=== PATIENT | female | born 1940 | race Caucasian/White ===

== ENCOUNTER 2016-08-26 14:17 | Inpatient (IN) | payer MEDICARE, OTHER ==
[2016-08-26] VITALS (8 sets, daily range): BP systolic 128–156; BP diastolic 63–85; PULSE 59–100; RESP 14–22; TEMP 97.6–98.4; O2SAT 90–93
[~2016-08-26] VITALS: Ht 167.6 cm; Wt 64.3 kg
--- NOTE | 2016-08-26 15:44 | RADRPT ---
EXAM DATE/TIME: 08/26/2016 15:09 [facility] COMPARISON: No previous studies available for comparison. INDICATIONS : Short of breath MEDICAL HISTORY : Carcinoma, breast. SURGICAL HISTORY : [id number] ENCOUNTER: Initial ACUITY: 1 day PAIN SCORE: 4/10 LOCATION: Bilateral chest FINDINGS: A single view of the chest demonstrates the lungs to be symmetrically aerated with mild interstitial prominence suggesting some degree of vascular congestion or volume overload. No findings of overt lenard lure. There are no effusions or confluent infiltrates. Heart size is normal accounting for the low enrrique ng volumes. Degenerative spurring of the dorsal spine. Osseous structures are intact. Right IJ Infuse -a-Port catheter with the tip projecting over the central venous system. CONCLUSION: 1. Mild interstitial prominence suggesting some degree of vascular congestion or volume overload. 2. No confluent infiltrate or effusions. Alejandro Dalton MD on August 26, 2016 at 15:40 Board Certified Radiologist. This report was verified electronically.
[2016-08-26 15:46] LABS: BASOPHIL % 0.2 % (0.0-2.0); EOSINOPHIL # 0.1 TH/MM3 (0-0.4); EOSINOPHIL % 0.8 % (0.0-4.0); HEMATOCRIT 32.8 % (35.0-46.0); LYMPH % 10.6 % (9.0-44.0); LYMPHOCYTE # 0.6 TH/MM3 (1.0-4.8); MEAN CELL VOLUME 84.9 FL (80.0-100.0); MEAN CORPUSCULAR HEMOGLOBIN 27.7 PG (27.0-34.0); MEAN CORPUSCULAR HGB CONC 32.7 % (32.0-36.0); MONO % 5.5 % (0.0-8.0); NEUT % 82.9 % (16.0-70.0); PLATELET COUNT 364 TH/MM3 (150-450); RED BLOOD COUNT 3.86 MIL/MM3 (4.00-5.30); RED CELL DISTRIBUTION WIDTH 15.2 % (11.6-17.2); WHITE BLOOD COUNT 6.1 TH/MM3 (4.0-11.0)
[2016-08-26 15:47] LABS: PROTHROMBIN TIME - PATIENT 11.3 SEC (9.8-11.6)
[2016-08-26 15:52] LABS: HEMO FLAGS AUTO DIFF
[2016-08-26 16:12] LABS: ANION GAP 8 MEQ/L (5-15); BICARBONATE 25.6 MEQ/L (21.0-32.0); BLOOD UREA NITROGEN 8 MG/DL (7-18); CHLORIDE 106 MEQ/L (98-107); GLOMERULAR FILTRATION RATE 74 ML/MIN (>89); POTASSIUM 3.6 MEQ/L (3.5-5.1); SODIUM (NA) 140 MEQ/L (136-145)
[2016-08-26 16:15] LABS: CREATINE KINASE 33 U/L (26-192)
[2016-08-26 16:35] LABS: BANDS 8 % (0-6); BASOPHILS 2 % (0-2); EOSINOPHILS 2 % (0-4); METAMYELOCYTES 1 % (0-1); MYELOCYTES 1 % (0-0); NEUTROPHIL # MANUAL DIFF 5.1 TH/MM3 (1.8-7.7); POLYS (SEG NEUTROPHILS) 74 % (16-70); WBC DIFF SAMPLE 100
[2016-08-26 16:36] LABS: PLATELET ESTIMATE SMEAR NORMAL (NORMAL); PLATELET MORPHOLOGY ENLARGED (NORMAL); SCAN/DIFF FINAL DIFF MANUAL
--- NOTE | 2016-08-26 18:12 | PD ---
HPI Chief Complaint: Respiratory Distress Time Seen by Provider: 14:45 Travel History International Travel<30 days: No Contact w/Intl Traveler<30days: No Traveled to known affect area: No History of Present Illness HPI 76-year-old female came to the emergency room with history of hypoxia at her oncologist's office. Patient was diagnosed with breast cancer 8 weeks ago. Had a lumpectomy and has been going to chemotherapy. She was at her oncologist office and finish with the chemotherapy when the nurse noticed that her oxygen saturation was in the 70s. EMS was called and patient was brought here. As per EMS when patient ambulates the oxygen saturation on room air dropped down to 75%. Patient does not appear to be severely discomfort. Currently she is on 4 L of oxygen and saturating 92%. Upon asking patient said that for past 4- 5 days she has noticed some shortness of breath on exertion. Her oncologist was concerned about a blood clot in her lungs. Patient has never had any blood clots in the past. Heart rate and blood pressure stable otherwise. No history of fever or chills. No history of cough. No history of chest pain. [facility] Past Medical History Narrative Medical List of her past medical, surgical, social and family history was reviewed from the nursing note. Cancer: Yes (left breast) Chemotherapy: Yes Social History Alcohol Use: No Tobacco Use: No Substance Use: No Allergies-Medications (Allergen,Severity, Reaction): Coded Allergies: No Known Allergies (Unverified , 08/26/16) Comments No known drug allergies. Reported Meds & Prescriptions Reported Meds & Active Scripts Active Reported Crestor (Rosuvastatin Calcium) 40 Mg Tab 40 Mg PO DAILY Vesicare (Solifenacin) 5 Mg Tab 5 Mg PO DAILY Cymbalta DR (Duloxetine HCl) 60 Mg Capdr 60 Mg PO DAILY Narrative Medication Awaiting for the nurse to do a med reconciliation. Review of Systems Except as stated in HPI: all other systems reviewed are Neg Physical Exam Narrative GENERAL: Awake, alert, no obvious distress SKIN: Focused skin assessment warm/dry. Pale HEAD: Atraumatic. Normocephalic. EYES: Pupils equal and round. No scleral icterus. No injection or drainage. ENT: No nasal bleeding or discharge. Mucous membranes pink and moist. NECK: Trachea midline. No JVD. CARDIOVASCULAR: Regular rate and rhythm. No murmur appreciated. RESPIRATORY: No accessory muscle use. Coarse crackles bilaterally. GASTROINTESTINAL: Abdomen soft, non-tender, nondistended. Hepatic and splenic margins not palpable. MUSCULOSKELETAL: No obvious deformities. No clubbing. No cyanosis. No edema. NEUROLOGICAL: Awake and alert. No obvious cranial nerve deficits. Motor grossly within normal limits. Normal speech. PSYCHIATRIC: Appropriate mood and affect; insight and judgment normal. Data Data Last Documented VS Vital Signs Date Time Temp Pulse Resp B/P Pulse Ox O2 Delivery O2 Flow Rate FiO2 08/26/16 19:17 92 20 156/85 92 Nasal Cannula 4 08/26/16 14:37 98.4 Orders Complete Blood Count With Diff (08/26/16 14:45) Basic Metabolic Panel (Bmp) (08/26/16 14:45) B-Type Natriuretic Peptide (08/26/16 14:45) Prothrombin Time / Inr (Pt) (08/26/16 14:45) Ckmb (Isoenzyme) Profile (08/26/16 14:45) Troponin I (08/26/16 14:45) Iv Access Insert/Monitor (08/26/16 14:45) Electrocardiogram (08/26/16 14:45) Ecg Monitoring (08/26/16 14:45) Oximetry (08/26/16 14:45) Oxygen Administration (08/26/16 14:45) Chest, Single Ap (08/26/16 14:45) Ventilation & Perfusion Scan (08/26/16 ) Iohexol 350 Inj (Omnipaque 350 Inj) (08/26/16 19:12) Levofloxacin 500 Mg Premix Inj (Levaquin (08/26/16 19:15) Admit Order (Ed Use Only) (08/26/16 19:27) Labs Laboratory Tests Test 08/26/16 15:03 White Blood Count 6.1 TH/MM3 Red Blood Count 3.86 MIL/MM3 Hemoglobin 10.7 GM/DL Hematocrit 32.8 % Mean Corpuscular Volume 84.9 FL Mean Corpuscular Hemoglobin 27.7 PG Mean Corpuscular Hemoglobin 32.7 % Concent Red Cell Distribution Width 15.2 % Platelet Count 364 TH/MM3 Mean Platelet Volume 9.2 FL Neutrophils (%) (Auto) 82.9 % Lymphocytes (%) (Auto) 10.6 % Monocytes (%) (Auto) 5.5 % Eosinophils (%) (Auto) 0.8 % Basophils (%) (Auto) 0.2 % Neutrophils # (Auto) 5.0 TH/MM3 Lymphocytes # (Auto) 0.6 TH/MM3 Monocytes # (Auto) 0.3 TH/MM3 Eosinophils # (Auto) 0.1 TH/MM3 Basophils # (Auto) 0.0 TH/MM3 CBC Comment AUTO DIFF Differential Total Cells 100 Counted Neutrophils % (Manual) 74 % Band Neutrophils % 8 % Lymphocytes % 8 % Monocytes % 4 % Eosinophils % 2 % Basophils % 2 % Neutrophils # (Manual) 5.1 TH/MM3 Metamyelocytes 1 % Myelocytes 1 % Differential Comment FINAL DIFF MANUAL Platelet Estimate NORMAL Platelet Morphology Comment ENLARGED Prothrombin Time 11.3 SEC Prothromb Time International 1.0 RATIO Ratio Sodium Level 140 MEQ/L Potassium Level 3.6 MEQ/L Chloride Level 106 MEQ/L Carbon Dioxide Level 25.6 MEQ/L Anion Gap 8 MEQ/L Blood Urea Nitrogen 8 MG/DL Creatinine 0.76 MG/DL Estimat Glomerular Filtration 74 ML/MIN Rate Random Glucose 157 MG/DL Calcium Level 9.2 MG/DL Total Creatine Kinase 33 U/L Troponin I LESS THAN 0.02 NG/ML B-Type Natriuretic Peptide 16 PG/ML MDM Medical Decision Making Medical Screen Exam Complete: Yes Emergency Medical Condition: Yes Medical Record Reviewed: Yes Interpretation(s) Twelve-lead EKG was reviewed by me. Normal sinus rhythm, normal axis, nonspecific ST-T wave changes. Heart rate of 86 bpm. Differential Diagnosis PE, congestive heart failure, pleural effusion, pneumonia Narrative Course 6:12 PM the test results of back and within acceptable limits. Patient does have a high risk for PE. CT pulmonary angiogram was ordered. Patient went for the CT but the IV infiltrated into her arm. Patient is waiting for a repeat CT angiogram at this point. 7:09 PM the IV contrast infiltrated on the left AC. The left AC cannot be accessed because of her breast cancer and lumpectomy. At this point I have ordered a VQ scan. In any case patient continues to be hypoxic and requires a 4 L of oxygen. I have decided to admit her at this point. Incidentally her differential diagnosis showed some bandemia. I'll go ahead and give her antibiotics. Critical Care Narrative Aggregate critical care time was 45 minutes. Time to perform other separately billable procedures was not included in the critical care time. My time did not include minutes spent treating any other patients simultaneously or on activities that did not directly contribute to the patient's treatment. The services I provided to this patient were to treat and/or prevent clinically significant deterioration that could result in: Respiratory distress, hypoxia requiring oxygen I provided critical care services requiring my management, as noted below: Chart data review, documentation time, medication orders and management, vital sign assessments/reviewing monitor data, ordering and reviewing lab tests, ordering and interpreting/reviewing x-rays and diagnostic studies, care of the patient and discussion of the patient with the admitting physicians. Procedures EKG Prior to Arrival: No Diagnosis Primary Impression: Hypoxia Additional Impressions: Shortness of breath Bandemia Admitting Information Admitting Physician Requests: Obdulia Rangel MD Aug 26, 2016 18:12
[2016-08-26] MEDS ORDERED: IOHEXOL 350 MG/ML 10 ML VIAL (for RAD DIAG) IV ONE (19:12)
[2016-08-26] MEDS ORDERED: LEVOFLOXACIN 500 MG PREMIX INJ 100 ML IV ONE (19:15)
--- NOTE | 2016-08-26 19:54 | HHI.HP ---
HPI Service [facility] Primary Care Physician Non-Staff Admission Diagnosis hypoxia, shortness of breath, bandemia Diagnoses: (1) Breast CA Diagnosis: Principal (2) Hypoxia Diagnosis: Principal (3) Bandemia Diagnosis: Principal (4) Dehydration Diagnosis: Principal (5) HTN (hypertension) Diagnosis: Principal Travel History International Travel<30 Days: No Contact w/Intl Traveler <30 Da: No Traveled to Known Affected Are: No History of Present Illness This is a 76-year-old female with a PMH of Breast CA on Chemotherapy was sent to the ER by Oncologist Dr. Kirk, secondary to episode of hypoxia following Chemo and concern for PE. Pt w/ c/o acute onset of SOB, noted to have O2 sat 75 % on RA upon EMS arrival, s/p 4L NC w/ O2 sat improved to 92%. No complaints of cough, chest pain or sick contacts. Denies fever, chills. On arrival, BP 128/63, HR 100, O2 sat 92% on 4L NC, Afebrile. WBC normal however elevated neutrophil count. Bands of 8%. GFR 74. INR 1.0. CXR with mild interstitial prominence with some degree of vascular congestion or volume overload, no infiltrate or effusion. V/Q with low probability for PE. S/p Levaquin IV in ER. for possible underlying PNA. Review of Systems Except as stated in HPI: all other systems reviewed are Neg ROS: 14 point review of systems otherwise negative. Past Family Social History Past Medical History PMH: Breast CA on Chemotherapy Past Surgical History PAST SURGICAL HISTORY: Left Breast Lumpectomy Allergies: Coded Allergies: No Known Allergies (Unverified , 08/26/16) Family History PAST FAMILY HISTORY: Reviewed. No h/o DM or CAD Social History PAST SOCIAL HISTORY: Negative for alcohol, tobacco or drugs. Physical Exam Vital Signs Vital Signs Date Time Temp Pulse Resp B/P Pulse Ox O2 Delivery O2 Flow Rate FiO2 08/26/16 19:17 92 20 156/85 92 Nasal Cannula 4 08/26/16 15:42 83 20 133/64 93 Nasal Cannula 4 08/26/16 15:17 93 Nasal Cannula 4 08/26/16 15:17 93 Nasal Cannula 4 08/26/16 14:45 94 Nasal Cannula 4 08/26/16 14:37 98.4 100 22 128/63 93 Physical Exam PE: GENERAL: Very pleasant elderly white female in no acute distress. HEENT: PERRLA, EOMI. No scleral icterus or conjunctival pallor. No lid lag or facial droop. CARDIOVASCULAR: Regular rate and rhythm. No obvious murmurs to auscultation. No chest tenderness to palpation. RESPIRATORY: No obvious rhonchi or wheezing. Clear to auscultation. Breath sounds equal bilaterally. GASTROINTESTINAL: Abdomen soft, non-tender, nondistended. BS normal. MUSCULOSKELETAL: Extremities without clubbing, cyanosis, or edema. No obvious deformities. NEUROLOGICAL: Awake, alert and oriented x4. No focal neurologic deficits. Moving both upper and lower extremities spontaneously. Laboratory Laboratory Tests Test 08/26/16 15:03 White Blood Count 6.1 Red Blood Count 3.86 Hemoglobin 10.7 Hematocrit 32.8 Mean Corpuscular Volume 84.9 Mean Corpuscular Hemoglobin 27.7 Mean Corpuscular Hemoglobin 32.7 Concent Red Cell Distribution Width 15.2 Platelet Count 364 Mean Platelet Volume 9.2 Neutrophils (%) (Auto) 82.9 Lymphocytes (%) (Auto) 10.6 Monocytes (%) (Auto) 5.5 Eosinophils (%) (Auto) 0.8 Basophils (%) (Auto) 0.2 Neutrophils # (Auto) 5.0 Lymphocytes # (Auto) 0.6 Monocytes # (Auto) 0.3 Eosinophils # (Auto) 0.1 Basophils # (Auto) 0.0 CBC Comment AUTO DIFF Differential Total Cells 100 Counted Neutrophils % (Manual) 74 Band Neutrophils % 8 Lymphocytes % 8 Monocytes % 4 Eosinophils % 2 Basophils % 2 Neutrophils # (Manual) 5.1 Metamyelocytes 1 Myelocytes 1 Differential Comment FINAL DIFF MANUAL Platelet Estimate NORMAL Platelet Morphology Comment ENLARGED Prothrombin Time 11.3 Prothromb Time International 1.0 Ratio Sodium Level 140 Potassium Level 3.6 Chloride Level 106 Carbon Dioxide Level 25.6 Anion Gap 8 Blood Urea Nitrogen 8 Creatinine 0.76 Estimat Glomerular Filtration 74 Rate Random Glucose 157 Calcium Level 9.2 Total Creatine Kinase 33 Troponin I LESS THAN 0.02 B-Type Natriuretic Peptide 16 Result Diagram: 08/26/16 1503 08/26/16 1503 Assessment and Plan Problem List: (1) Hypoxia ICD Code: R09.02 Status: Acute (2) Bandemia ICD Code: D72.825 Status: Acute (3) Dehydration ICD Code: E86.0 Status: Acute (4) Breast CA ICD Code: C50.919 Status: Acute (5) HTN (hypertension) ICD Code: I10 Status: Acute Assessment and Plan A/P: 1. Hypoxia: acute onset of SOB w/ O2 sat 75% on RA following Chemo, referred to ER by Dr. Kirk for concern of possible PE. O2 sat currently 93% on 4L NC. CXR w/ no possible volume overload but no infiltrate or effusion, V/Q Scan low probability for PE, images reviewed by me. S/p Levaquin for possible underlying PNA in light of immunocompromised state, will continue. DuoNeb prn, Symbicort bid. 2. Bandemia: +Bandemia w/ elevated neutrophil. CXR w/ no obvious infiltrate, however possible underlying PNA, will continue w/ IV Abx in light of immunocompromised state and bandemia. Repeat labs in am. 3. Dehydration: GFR 74, BUN/Creatinine normal. IVF for hydration, repeat labs in am. 4. Breast CA: Follows w/ Dr. Kirk, currently on Chemo. Will continue w/ treatment as scheduled. 5. HTN: BP 140-150's. Will monitor BP. 6. DVT Prophylaxis: Heparin sq 7. Social work for d/c planning as needed. 8. Case discussed w/ ER physician at length Physician Certification 2 Midnight Certification Type: Admission for Inpatient Services Order for Inpatient Services The services are ordered in accordance with Medicare regulations or non- Medicare payer requirements, as applicable. In the case of services not specified as inpatient-only, they are appropriately provided as inpatient services in accordance with the 2-midnight benchmark. Estimated LOS (days): 2 days is the estimated time the patient will need to remain in the hospital, assuming treatment plan goals are met and no additional complications. Post-Hospital Plan: Not yet determined Delia Price MD Aug 26, 2016 19:54
[2016-08-26] MEDS ORDERED: ACETAMINOPHEN 325 MG TAB PO PRN (20:00)
[2016-08-26] MEDS ORDERED: MAGNESIUM HYDROXIDE SUSP 30 ML CUP PO PRN (20:00)
[2016-08-26] MEDS ORDERED: LACTULOSE SYRUP 20 GM/30 ML CUP PO PRN (20:00)
[2016-08-26] MEDS ORDERED: ACETAMINOPHEN/HYDROcodone 325 MG/5 MG TAB PO PRN (20:00)
[2016-08-26] MEDS ORDERED: BISACODYL 10 MG SUPP RECTAL PRN (20:00)
[2016-08-26] MEDS ORDERED: SENNOSIDES 8.6 MG TAB PO PRN (20:00)
[2016-08-26] MEDS: DOCUSATE SODIUM 50 MG/SENNA 8.6 MG TAB PO SCH (21:00)
--- NOTE | 2016-08-26 21:23 | RADRPT ---
EXAM DATE/TIME: 08/26/2016 20:26 [facility] COMPARISON: No previous studies available for comparison. INDICATIONS : History of hypoxia. Acute shortness of breath. DOSE: 8.6 mCi Tc99m MAA IV 1.4 mCi Tc99m DTPA aerosol MEDICAL HISTORY : Carcinoma, breast. SURGICAL HISTORY : Lumpectomy. ENCOUNTER: Initial ACUITY: 1 day PAIN SCALE: 0/10 LOCATION: chest TECHNIQUE: Following five minutes of tidal breathing of DTPA aerosol, planar images of the lungs were performed in eight projections. The patient was then injected with MAA, and eight-view perfusion scan was perf ormed. FINDINGS: There is a mildly heterogeneous pattern of aerosol delivery to the periphery of both lungs. No focal ventilatory defects are seen. The perfusion lung scan demonstrates a homogenous pattern of uptake in both lungs with minimal blunti ng of the costophrenic angles. No segmental or subsegmental defects are seen. CONCLUSION: 1. Low probability for pulmonary embolus. Checo Conner MD on August 26, 2016 at 21:20 Board Certified Radiologist. This report was verified electronically.
[2016-08-26] MEDS ORDERED: ROSU40 PO (21:32)
[2016-08-26] MEDS ORDERED: VESI5TAB PO (21:32)
[2016-08-26] MEDS ORDERED: CYMB60CA PO (21:32)
[2016-08-26] MEDS: SODIUM CHLOR 0.9% 1000 ML INJ 1,000 ML IV SCH (21:53)
[2016-08-26] MEDS: SODIUM CHLORIDE 0.9% FLUSH 10 ML FLUSH IV FLUSH SCH (21:53)
[2016-08-26] MEDS: guaiFENesin E.R. 600 MG TAB PO SCH (22:18)
[2016-08-26] MEDS: HEPARIN SODIUM - SQ 10,000 UNITS/ML VIAL SQ SCH (22:21)
[2016-08-27] VITALS (8 sets, daily range): BP systolic 129–150; BP diastolic 58–72; PULSE 91–105; RESP 18–20; TEMP 97.6–98.1; O2SAT 89–95
[2016-08-27] MEDS: BUDESONIDE-FORMOTEROL 160/4.5 MCG INHALER INH SCH ×3 (00:13→21:54)
[2016-08-27] MEDS: HEPARIN SODIUM - SQ 10,000 UNITS/ML VIAL SQ SCH ×3 (05:02→21:43)
[2016-08-27] MEDS: RESP: ALBUTEROL 2.5 MG/IPRATROPIUM 0.5 MG NEB (PRN) NEB (05:03)
[2016-08-27] MEDS: SODIUM CHLOR 0.9% 1000 ML INJ 1,000 ML IV SCH (05:03)
[2016-08-27] MEDS: SODIUM CHLORIDE 0.9% FLUSH 10 ML FLUSH IV FLUSH SCH ×2 (09:00→21:45)
[2016-08-27] MEDS: DOCUSATE SODIUM 50 MG/SENNA 8.6 MG TAB PO SCH ×2 (09:00→21:00)
--- NOTE | 2016-08-27 09:22 | ECHRPT ---
Indication: Shortness of breath CONCLUSIONS Normal left ventricular size. Wall thickness is normal. The left ventricular systolic function is low normal with an estimated ejection fraction in the rang e of 50- 55%. There was limited left ventricular wall motion assessment due to poor endocardial visualization. Doppler parameters are consistent with impaired left ventricular relaxtion (grade 1 diastolic dysfun ction). The right ventricle was not well visualized. The right atrium is not well visualized. The interatrial septum not well visualized. Mild to moderate mitral annular calcification. Mild mitral regurgitation. The aortic valve is not well visualized. The tricuspid valve is not well visualized. There is trace tricuspid valve regurgitation. The pulmonary valve is not well visualized. BP: 156 / 85 HR: 86 Rhythm: Sinus MEASUREMENTS (Male / Female) Normal Values Technical Quality:Fair, Technically difficult stud y 2D ECHO LV Diastolic Diameter PLAX 4.3 cm 4.2 - 5.9 / 3.9 - 5.3 cm LV Systolic Diameter PLAX 2.6 cm IVS Diastolic Thickness 1.0 cm 0.6 - 1.0 / 0.6 - 0.9 cm LVPW Diastolic Thickness 1.0 cm 0.6 - 1.0 / 0.6 - 0.9 cm LV Relative Wall Thickness 0.4 LVOT Diameter 1.8 cm Aortic Root Diameter 2.8 cm LA Systolic Diameter LX 2.8 cm 3.0 - 4.0 / 2.7 - 3.8 cm M-MODE AV Cusp Separation MM 1.9 cm DOPPLER AV Peak Velocity 93.2 cm/s AV Peak Gradient 3.5 mmHg AV Mean Gradient 2.0 mmHg AV Velocity Time Integral 21.0 cm Mitral E Point Velocity 102.8 cm/s Mitral A Point Velocity 117.3 cm/s Mitral E to A Ratio 0.9 LV E' Lateral Velocity 7.0 cm/s Mitral E to LV E' Lateral Ratio 14.7 TR Peak Velocity 290.0 cm/s TR Peak Gradient 33.6 mmHg PV Peak Velocity 72.2 cm/s PV Peak Gradient 2.1 mmHg FINDINGS LEFT VENTRICLE Normal left ventricular size. Wall thickness is normal. The left ventricular systolic function is low normal with an estimated ejection fraction in the rang e of 50- 55%. There was limited left ventricular wall motion assessment due to poor endocardial visualization. Doppler parameters are consistent with impaired left ventricular relaxtion (grade 1 diastolic dysfun ction). RIGHT VENTRICLE The right ventricle was not well visualized. LEFT ATRIUM The left atrial size is normal. RIGHT ATRIUM The right atrium is not well visualized. ATRIAL SEPTUM The interatrial septum not well visualized. AORTA The aortic root and proximal ascending aorta are normal in size on limited imaging. MITRAL VALVE Mild to moderate mitral annular calcification. Mild mitral regurgitation. AORTIC VALVE The aortic valve is not well visualized. No aortic valve stenosis or regurgitation. TRICUSPID VALVE The tricuspid valve is not well visualized. There is trace tricuspid valve regurgitation. PULMONARY VALVE The pulmonary valve is not well visualized. VESSELS The inferior vena cava is normal in size. PERICARDIUM No pericardial effusion. Luis Fernando Louie MD (Electronically Signed) Final Date:27 August 2016 09:21
[2016-08-27] MEDS: ATORVASTATIN 80 MG TAB PO SCH (09:24)
[2016-08-27] MEDS: DULoxetine HCl DR 60 MG CAP PO SCH (09:24)
[2016-08-27] MEDS: guaiFENesin E.R. 600 MG TAB PO SCH ×2 (09:24→21:45)
[2016-08-27] MEDS: TOLTERODINE TARTRATE 2 MG CAP LA PO SCH (09:25)
[2016-08-27 09:26] LABS: AUTOMATED NEUTROPHIL # 4.8 TH/MM3 (1.8-7.7); BASOPHIL % 0.7 % (0.0-2.0); HEMO FLAGS DIFF FINAL; LYMPH % 11.9 % (9.0-44.0); LYMPHOCYTE # 0.7 TH/MM3 (1.0-4.8); MEAN CELL VOLUME 85.9 FL (80.0-100.0); MEAN CORPUSCULAR HEMOGLOBIN 27.7 PG (27.0-34.0); MEAN CORPUSCULAR HGB CONC 32.3 % (32.0-36.0); MONO % 8.4 % (0.0-8.0); PLATELET COUNT 355 TH/MM3 (150-450); RED BLOOD COUNT 3.85 MIL/MM3 (4.00-5.30); RED CELL DISTRIBUTION WIDTH 15.2 % (11.6-17.2); WHITE BLOOD COUNT 6.1 TH/MM3 (4.0-11.0)
[2016-08-27 09:45] LABS: ALT (GPT) 30 U/L (10-53); ANION GAP 14 MEQ/L (5-15); AST (GOT) 26 U/L (15-37); BICARBONATE 19.8 MEQ/L (21.0-32.0); BLOOD UREA NITROGEN 11 MG/DL (7-18); CHLORIDE 108 MEQ/L (98-107); GLOMERULAR FILTRATION RATE 93 ML/MIN (>89); POTASSIUM 3.5 MEQ/L (3.5-5.1); SODIUM (NA) 142 MEQ/L (136-145)
[2016-08-27 09:48] LABS: ALKALINE PHOSPHATASE 59 U/L (45-117); TOTAL BILIRUBIN ADULT 0.5 MG/DL (0.2-1.0)
--- NOTE | 2016-08-27 14:51 | HHI.PR ---
Subjective Remarks Better but still short of breath. Still hypoxemic requiring up to 5 L oxygen on NC. Denies any history of COPD or heart failure. 2D echo only remarkable for grade 1 diastolic dysfunction. Objective Vitals Vital Signs Date Time Temp Pulse Resp B/P Pulse Ox O2 Delivery O2 Flow Rate FiO2 08/27/16 12:00 97.6 105 18 129/65 93 08/27/16 08:00 98.1 91 20 150/72 89 08/27/16 08:00 Nasal Cannula 5.00 Humidified 08/27/16 05:05 92 Nasal Cannula 5.00 08/27/16 04:06 97.8 92 18 142/68 94 08/27/16 02:45 92 Nasal Cannula 5.00 08/26/16 23:57 97.6 92 18 143/74 90 08/26/16 23:06 59 14 135/74 Room Air 08/26/16 22:48 96 08/26/16 22:45 93 Nasal Cannula 5.00 08/26/16 19:17 92 20 156/85 92 Nasal Cannula 4 08/26/16 15:42 83 20 133/64 93 Nasal Cannula 4 08/26/16 15:17 93 Nasal Cannula 4 08/26/16 15:17 93 Nasal Cannula 4 I/O 08/26/16 08/26/16 08/26/16 08/27/16 08/27/16 08/27/16 07:00 15:00 23:00 07:00 15:00 23:00 Intake Total 1167 ml Output Total 0 ml Balance 1167 ml Intake Oral 240 ml IV Total 927 ml Output Urine Total 0 ml # Bowel Movements 0 Result Diagram: 08/27/16 0752 08/27/16 0752 Imaging Last Impressions Chest X-Ray 08/28/16 0358 Signed Impressions: Service Date/Time: Sunday, August 28, 2016 03:57 - CONCLUSION: The study is more Midinspiratory with apparent increase in the bilateral interstitial opacities which may represent pulmonary edema versus a more chronic process such as interstitial lung disease. Cayden Barba MD Lung Scan-VQ Nuclear Medicine 08/26/16 0000 Signed Impressions: Service Date/Time: Friday, August 26, 2016 20:26 - CONCLUSION: 1. Low probability for pulmonary embolus. Checo Conner MD Objective Remarks GENERAL: This is a well-nourished, well-developed patient, mild dyspnea. CARDIOVASCULAR: Normal rate and regular rhythm without murmurs, gallops, or rubs. RESPIRATORY: Good respiratory efforts. Breath sounds markedly diminished at the bases. GASTROINTESTINAL: Abdomen soft, non-tender, non-distended. Normal active bowel sounds MUSCULOSKELETAL: Extremities without cyanosis, or edema. NEURO: Alert & Oriented x4 to person, place, time, situation. Moves all ext x4 PSYCH: Appropriate mood and affect. A/P Problem List: (1) Hypoxia ICD Code: R09.02 Status: Acute (2) Bandemia ICD Code: D72.825 Status: Acute (3) Dehydration ICD Code: E86.0 Status: Acute (4) Breast CA ICD Code: C50.919 Status: Acute (5) HTN (hypertension) ICD Code: I10 Status: Acute Assessment and Plan 76 Y/O female with breast cancer undergoing chemotherapy treatment admitted with acute shortness of breath, hypoxemia. Hypoxia: acute onset of SOB w/ O2 sat 75% on RA following Chemo, referred to ER by Dr. Kirk for concern of possible PE. O2 sat currently 93% on 4L NC. CXR w/ possible volume overload but no infiltrate or effusion, V/Q Scan low probability for PE, images reviewed by me. S/p Levaquin for possible underlying PNA in light of immunocompromised state, will continue. DuoNeb prn, Symbicort bid. - Patient is still having dyspnea. Will obtain a chest CT to better evaluate the lung parenchyma. Consult pulmonology Breast CA: Follows w/ Dr. Kirk, currently on Chemo. Patient was sent from the Oncology office. Consult Dr. Kirk. Bandemia: +Bandemia w/ elevated neutrophil. CXR w/ no obvious infiltrate, however possible underlying PNA, will continue w/ IV Abx in light of immunocompromised state and bandemia. Follow labs. Elevated BP: No known history of hypertension. Continue to monitor. DVT Prophylaxis: Heparin sq Stefany Luong MD Aug 27, 2016 14:51
[2016-08-27] MEDS: LEVOFLOXACIN 750 MG PREMIX INJ 150 ML IV SCH (21:45)
--- NOTE | 2016-08-27 22:56 | HHI.PR ---
Addendum to Inpatient Note Addendum Reason: Additional Documentation Additional Information S: Evie called on overhead page. [place] by resident team at 8:08 PM; arrived at bedside within a few minutes. Evie was called for oxygen saturation in the 70s. Respiratory therapy at bedside, saying they have solved the problem. The oxygen tubing got tangled, so patient was not getting oxygen. Soon after they changed the oxygen tubing and connected the patient to NRB, oxygen saturation ayaka to 95%. Then, when patient was transitioned to 5 L nasal cannula , patient's oxygen saturation was 94%. Patient denies any acute change in her breathing. She denies shortness of breath at rest. She endorses dyspnea on exertion, but reports that her symptoms are at baseline. O: Pulse 95, blood pressure 137/58, temperature 97.6, pulse ox of 78%, respiratory rate of 18. Soon after they changed the oxygen tubing and connected the patient to NRB, oxygen saturation aayka to 95%. Then, when patient was transitioned to 5 L nasal cannula, patient's oxygen saturation was 94%. Gen: Patient awake, alert and conversational in no acute distress Cardiovascular: Extremities warm and well perfused Respiratory: No signs of respiratory distress. Patient breathing comfortably on NRB and then nasal cannula. Neuro: Patient awake, alert and oriented. No focal deficits. A/P: 76-year-old woman who presented with shortness of breath had oxygen desaturation likely because of tangled/kinked oxygen tubing, which resolved with replacement of oxygen tubing. Patient denied any acute change in her symptoms. No signs of respiratory distress on exam. Continue oxygen via nasal cannula. Titrate as needed. Cayden Vila MD R1 Aug 27, 2016 22:56
[2016-08-28] VITALS (23 sets, daily range): BP systolic 116–156; BP diastolic 56–83; PULSE 93–108; RESP 18–39; TEMP 97.5–98.8; O2SAT 90–100
[2016-08-28] MEDS: RESP: ALBUTEROL 2.5 MG/IPRATROPIUM 0.5 MG NEB (PRN) NEB ×3 (04:12→11:58)
[2016-08-28] MEDS: HEPARIN SODIUM - SQ 10,000 UNITS/ML VIAL SQ SCH ×3 (04:13→20:23)
--- NOTE | 2016-08-28 04:15 | RADRPT ---
EXAM DATE/TIME: 08/28/2016 03:57 [facility] COMPARISON: CT PULMONARY ANGIOGRAM, August 26, 2016, 16:50. CHEST SINGLE AP, August 26, 2016, 15:09. INDICATIONS : Pt short of breath. MEDICAL HISTORY : Carcinoma, breast. SURGICAL HISTORY : None. ENCOUNTER: Initial ACUITY: 1 day PAIN SCORE: 8/10 LOCATION: Bilateral chest FINDINGS: A single AP erect view of the chest was obtained and again demonstrates the right-sided implantable p ort catheter in place. Coarse interstitial opacities are noted in both lungs which appear mildly incr eased. This may be due to a more Midinspiratory view. There is no new focal consolidation or effusion . The heart size appears mildly prominent. The bony thorax is intact with degenerative change in the thoracic spine. CONCLUSION: The study is more Midinspiratory with apparent increase in the bilateral interstitial opacities which may represent pulmonary edema versus a more chronic process such as interstitial rica g disease. Cayden Barba MD on August 28, 2016 at 4:11 Board Certified Radiologist. This report was verified electronically.
--- NOTE | 2016-08-28 04:26 | HHI.PR ---
Blank section for building S:Received call from RN that patient was saturating in the 70s on 5L is currently requiring non rebreather mask Patient denies SOB O:Patient current vital signs: Temperature 97.9, blood pressure 134/62, heart rate 103, respiratory rate 26, saturating 94% on simple mask Patient appears tachypneic and using accessory muscles Heart rate is tachycardic A/P:Hypoxia Requiring increasing oxygen support Stat ABG, CXR and breathing treatment ordered Transfer patient to [facility] for BiPAP Discussed with RN, patient and Vivien Alves Aug 28, 2016 04:26
[2016-08-28 04:43] LABS: BLOOD GAS BASE EXCESS -1.1 mmol/L (-2-2); BLOOD GAS CARBOXYHEMOGLOBIN 1.4 % (0-4); BLOOD GAS HCO3 23 mmol/L (22-26); BLOOD GAS O2 HGB SATURATION 88 % (90-100); BLOOD GAS OXYGEN CONTENT 14.3 Vol % (12.0-20.0); BLOOD GAS PCO2 37 mmHg (38-42); BLOOD GAS PO2 59 mmHg (61-120); BLOOD GAS TOTAL HGB 11.6 G/DL (12.0-16.0); TEMP CORR TO 98.6
[2016-08-28 04:44] LABS: CRITICAL VALUE YES; DRAW SITE RT RADIAL; LITER FLOW 9 L/M; NUMBER OF ARTERIAL PUNCTURES 1; OXYGEN DEVICE MASK; ULNAR PULSE PRESENT
[2016-08-28 04:45] LABS: STAT YES
[2016-08-28] MEDS: guaiFENesin E.R. 600 MG TAB PO SCH ×2 (10:05→20:23)
[2016-08-28] MEDS: ATORVASTATIN 80 MG TAB PO SCH (10:05)
[2016-08-28] MEDS: DOCUSATE SODIUM 50 MG/SENNA 8.6 MG TAB PO SCH ×2 (10:05→20:23)
[2016-08-28] MEDS: DULoxetine HCl DR 60 MG CAP PO SCH (10:05)
[2016-08-28] MEDS: TOLTERODINE TARTRATE 2 MG CAP LA PO SCH (10:06)
[2016-08-28] MEDS: BUDESONIDE-FORMOTEROL 160/4.5 MCG INHALER INH SCH ×2 (10:06→20:22)
[2016-08-28] MEDS: SODIUM CHLORIDE 0.9% FLUSH 10 ML FLUSH IV FLUSH SCH ×2 (10:06→20:23)
--- NOTE | 2016-08-28 10:09 | EKG ---
Date Performed: 08/26/2016 Time Performed: 14:59:30 PTAGE: 76 years EKG: Sinus rhythm NORMAL ECG NO PREVIOUS TRACING DOCTOR: Mack Jensen Interpretating Date/Time 08/28/2016 09:52:59
[2016-08-28] MEDS ORDERED: FUROSEMIDE 40 MG/4 ML VIAL IV PUSH ONE (10:30)
[2016-08-28] MEDS ORDERED: ENALAPRILAT 1.25 MG/ML VIAL IV PRN (10:30)
--- NOTE | 2016-08-28 10:59 | RADRPT ---
EXAM DATE/TIME: 08/28/2016 10:21 [facility] COMPARISON: CHEST SINGLE AP, August 28, 2016, 3:57. INDICATIONS : Short of breath Dyspnea MEDICAL HISTORY : Carcinoma, breast. SURGICAL HISTORY : [id number] ENCOUNTER: Subsequent ACUITY: 1 day PAIN SCORE: 0/10 LOCATION: Bilateral chest FINDINGS: [id number] is present on the right. Coarse interstitial changes aer seen in both lungs increasing in the interval. Heart is normal in size. CONCLUSION: Increasing interstitial changes. There is no pneumothorax. Soy Harper MD FACR on August 28, 2016 at 10:53 Board Certified Radiologist. This report was verified electronically.
--- NOTE | 2016-08-28 11:00 | HHI.PR ---
Subjective Remarks The patient's respiratory status worsened overnight. She was on BiPAP until this morning. She is still dyspneic and tachypneic. Currently on 100% on nonrebreather. She states her shortness of breath has been intermittently getting worse. Denies chest pain or chest pressure. A chest x-ray obtained earlier this morning was mean and speech are but noted increased bilateral interstitial opacities which may represent pulmonary edema versus interstitial lung disease. Objective Vitals Vital Signs Date Time Temp Pulse Resp B/P Pulse Ox O2 Delivery O2 Flow Rate FiO2 08/28/16 08:55 100 Non-Rebreather 100 08/28/16 08:47 90 Nasal Cannula 6.00 08/28/16 07:41 100 60 08/28/16 07:00 99 Bi-Pap 08/28/16 07:00 94 08/28/16 07:00 98.3 93 35 128/70 98 08/28/16 06:00 101 08/28/16 05:12 98 60 08/28/16 05:00 98.0 105 26 156/83 98 08/28/16 05:00 108 08/28/16 05:00 98 Bi-Pap 08/28/16 04:20 94 Simple Mask 8.00 08/28/16 04:00 97.9 94 18 134/62 99 08/28/16 00:00 97.7 101 18 126/58 90 08/27/16 22:00 90 Nasal Cannula 5.00 Humidified 08/27/16 20:10 95 5.00 08/27/16 20:00 97.6 95 18 137/58 94 08/27/16 17:39 90 Nasal Cannula 5.00 08/27/16 16:00 97.8 100 20 129/71 90 08/27/16 12:00 97.6 105 18 129/65 93 I/O 08/27/16 08/27/16 08/27/16 08/28/16 08/28/16 08/28/16 07:00 15:00 23:00 07:00 15:00 23:00 Intake Total 1167 ml 1320 ml Output Total 0 ml Balance 1167 ml 1320 ml Intake Oral 240 ml 240 ml IV Total 927 ml 1080 ml Output Urine Total 0 ml # Voids 2 # Bowel Movements 0 0 Result Diagram: 08/27/16 0752 08/27/16 075 Objective Remarks GENERAL: This is a well-nourished, well-developed patient, in respiratory distress. Patient is tachypneic. CARDIOVASCULAR: Normal rate and regular rhythm without murmurs, gallops, or rubs. RESPIRATORY: Tachypneic, shallow breathing. Bilateral crackles at the bases GASTROINTESTINAL: Abdomen soft, non-tender, non-distended. Normal active bowel sounds MUSCULOSKELETAL: Extremities without cyanosis, or edema. NEURO: Alert & Oriented x4 to person, place, time, situation. Moves all ext x4 PSYCH: Appropriate mood and affect. A/P Problem List: (1) Hypoxia ICD Code: R09.02 Status: Acute (2) Bandemia ICD Code: D72.825 Status: Acute (3) Dehydration ICD Code: E86.0 Status: Acute (4) Breast CA ICD Code: C50.919 Status: Acute (5) HTN (hypertension) ICD Code: I10 Status: Acute Assessment and Plan 76 Y/O female with breast cancer undergoing chemotherapy treatment admitted with acute shortness of breath, hypoxemia. Patient respiratory status worsening. Probably worsening CHF in combination with interstitial lung disease. Acute respiratory failure: Patient initially presented to the emergency room hypoxemic on room air. She was sent from her oncologist office, Dr. Kirk. VQ scan low probability for PE. I attempted to get a chest CT yesterday but was later told it was done on 08/26. Report not in EMR, there is now a paper copy in the chart. Per radiologist's read, this was also negative for pulmonary embolus. Pulmonary fibrosis. Extensive groundglass opacity with low below sparing. Differential diagnosis includes sequelae of drug reaction or subacute hypersensitivity pneumonitis, atypical usual interstitial pneumonitis or other causes of alveolitis. - On exam today. The patient has bilateral crackles. Worsening respiratory status. A 2-D echocardiogram shows low normal LVEF 50-55% and grade 1 diastolic dysfunction. Her BNP on admission was normal. Suspect respiratory failure is due to combination of heart failure and possible interstitial lung disease. ? Cardiotoxicity from chemotherapy. Give 1 dose of IV Lasix 40 mg 1. Monitor response. BiPAP as needed. - Pulmonology and cardiology consulted - Given the patient respiratory status. Will transfer to ICU for closer monitoring and care. At risk for worsening respiratory failure. Breast CA: Follows w/ Dr. Kirk, currently on Chemo. Patient was sent from the Oncology office. Consult Dr. Kirk. Bandemia: +Bandemia w/ elevated neutrophil. CXR w/ no obvious infiltrate, however possible underlying PNA, will continue w/ IV Abx in light of immunocompromised state and bandemia. Follow labs. Elevated BP: No known history of hypertension. Continue to monitor. DVT Prophylaxis: Heparin sq Stefany Luong MD Aug 28, 2016 11:00
[2016-08-28] MEDS ORDERED: DEXTROSE 50% IN WATER 50 ML VIAL(D50) IV PRN (12:30)
[2016-08-28] MEDS ORDERED: methylPREDNISolone SOD SUCC 125 MG/2 ML VIAL IV PUSH SCH (12:30)
[2016-08-28] MEDS: INSULIN NovoLIN REGULAR SUPPLEMENTAL SCALE SQ SCH ×3 (12:30→23:35)
[2016-08-28] MEDS ORDERED: GLUCAGON 1 MG/ML VIAL OTHER PRN (12:30)
--- NOTE | 2016-08-28 12:32 | PD.CONS ---
HPI Consult Requested By Reason for Consult Possible congestive heart failure Primary Care Physician Non-Staff History of Present Illness The patient is a pleasant 76-year-old white woman I'm asked to see for cardiac evaluation. She has no prior cardiac history. She is undergoing chemotherapy for breast cancer. Over the last week she's had progressive dyspnea on exertion and now severe dyspnea at rest with hypoxemia. She has no chest pain, palpitations nor any other cardiopulmonary history. EKG showed sinus rhythm and is normal. Echocardiogram was suboptimal but suggested normal left ventricular function and valves. Review of Systems Consitutional: COMPLAINS OF: Weight loss Respiratory: COMPLAINS OF: Shortness of breath Genitourinary: DENIES: Urinary incontinence Neurologic: DENIES: Tingling or numbness Musculoskeletal: COMPLAINS OF: Joint pain Psychiatric: COMPLAINS OF: Anxiety Past Family Social History Allergies: Coded Allergies: No Known Allergies (Unverified , 08/26/16) Past Medical History Hyperlipidemia Breast cancer with surgery and chemotherapy Osteoarthritis Past Surgical History Left lumpectomy Back surgery with hoang appendectomy Right rotator cuff surgery Right carpal tunnel release right total knee replacement Bilateral cataracts Reported Medications Reported Meds & Active Scripts Active Reported Crestor (Rosuvastatin Calcium) 40 Mg Tab 40 Mg PO DAILY Vesicare (Solifenacin) 5 Mg Tab 5 Mg PO DAILY Cymbalta DR (Duloxetine HCl) 60 Mg Capdr 60 Mg PO DAILY Active Ordered Medications Current Medications Medications (Trade) Dose Ordered Sig/Aurelia Route Start Time Stop Time Status Last Admin (Symbicort 160-4.5 Inh) 2 puff Q12HR INH 08/26/16 21:00 08/28/16 10:06 (Mucinex Er) 600 mg BID PO 08/26/16 21:00 08/28/16 10:05 (NS Flush) 2 ml UNSCH PRN IV FLUSH 08/26/16 20:00 (NS Flush) 2 ml BID IV FLUSH 08/26/16 21:00 08/28/16 10:06 (Zofran Inj) 4 mg Q6H PRN IVP 08/26/16 20:00 (Heparin Inj) 5,000 units Q8H SQ 08/26/16 20:00 08/28/16 04:13 (Tylenol) 650 mg Q6H PRN PO 08/26/16 20:00 (Aurora 5-325 Mg) 1 tab Q4H PRN PO 08/26/16 20:00 (Morphine Inj) 2 mg Q3H PRN IV 08/26/16 20:00 (Letty-Colace) 1 tab BID PO 08/26/16 21:00 08/28/16 10:05 (Milk Of Magnesia Liq) 30 ml Q12H PRN PO 08/26/16 20:00 (Senokot) 17.2 mg Q12H PRN PO 08/26/16 20:00 (Dulcolax Supp) 10 mg DAILY PRN RECTAL 08/26/16 20:00 Lactulose 30 ml 30 ml DAILY PRN PO 08/26/16 20:00 (Levaquin 750 Mg Premix Inj) 150 ml @ 100 mls/hr Q24H IV 08/27/16 21:00 08/27/16 21:45 (Cymbalta Dr) 60 mg DAILY PO 08/27/16 09:00 08/28/16 10:05 (Lipitor) 80 mg DAILY PO 08/27/16 09:00 08/28/16 10:05 (Detrol La) 2 mg DAILY PO 08/27/16 09:00 08/28/16 10:06 (Vasotec Inj) 1.25 mg Q6H PRN IV 08/28/16 10:30 Family History Unremarkable for premature coronary disease Social History She is and does not smoke and has a rare glass of wine. Physical Exam Vital Signs Vital Signs Date Time Temp Pulse Resp B/P Pulse Ox O2 Delivery O2 Flow Rate FiO2 08/28/16 11:00 97.5 104 35 147/75 93 08/28/16 11:00 100 08/28/16 10:00 94 08/28/16 09:00 100 08/28/16 08:55 100 Non-Rebreather 100 08/28/16 08:47 90 Nasal Cannula 6.00 08/28/16 08:00 100 08/28/16 07:41 100 60 08/28/16 07:00 99 Bi-Pap 08/28/16 07:00 100 Bi-Pap 60 08/28/16 07:00 94 08/28/16 07:00 98.3 93 35 128/70 98 08/28/16 06:00 101 08/28/16 05:12 98 60 08/28/16 05:00 98.0 105 26 156/83 98 08/28/16 05:00 108 08/28/16 05:00 98 Bi-Pap 08/28/16 04:20 94 Simple Mask 8.00 08/28/16 04:00 97.9 94 18 134/62 99 08/28/16 00:00 97.7 101 18 126/58 90 08/27/16 22:00 90 Nasal Cannula 5.00 Humidified 08/27/16 20:10 95 5.00 08/27/16 20:00 97.6 95 18 137/58 94 08/27/16 17:39 90 Nasal Cannula 5.00 08/27/16 16:00 97.8 100 20 129/71 90 Physical Exam CONSTITUTIONAL: A well-developed, well-nourished patient who is short of breath and tachypneic. EYES: Conjunctiva normal. Sclera nonicteric. Eyelids normal. No xanthelasma. HEENT: Oral mucosa normal without pallor or cyanosis. NECK: JVD less than or equal to 5 cm of water. RESPIRATORY: Breathing is unlabored without accessory muscle use. Normal breath sounds. No wheezes, or rubs present. Diffuse posterior Rales three quarters of the way up. CARDIOVASCULAR: Normal point of maximal impulse. No cardiac thrill present. Regular rate and rhythm. No murmurs, gallops, rubs or clicks present. PULSES: Carotid arteries: Normal pulses bilaterally without bruits. Palmar arteries: Radial pulses 1-2+ bilaterally Abdominal aorta: Aortic pulses normal without bruits or enlargement. Femoral arteries: 1-2+ bilaterally. No bruits present. Pedal pulses: 1-2+ bilaterally PERIPHERAL CIRCULATION: No cyanosis, clubbing, edema or varicosities present. GASTROINTESTINAL: Normal bowel sounds. Nontender without rigidity or guarding. No masses present. No hepatomegaly. Liver is nontender to palpation and spleen is nonpalpable. Digital rectal exam-not indicated for cardiovascular exam. MUSCULOSKELETAL: No kyphosis or scoliosis present. The patient is not ambulated. Able to undergo rehabilitation. SKIN: Skin turgor is normal. No rashes. NEUROLOGIC: Grossly oriented to person, place and time. Normal mood and appropriate affect. Laboratory Last 48 hours Impressions Chest X-Ray 08/28/16 0358 Signed Impressions: Service Date/Time: Sunday, August 28, 2016 03:57 - CONCLUSION: The study is more Midinspiratory with apparent increase in the bilateral interstitial opacities which may represent pulmonary edema versus a more chronic process such as interstitial lung disease. Cayden Barba MD Chest X-Ray 08/26/16 1445 Signed Impressions: Service Date/Time: Friday, August 26, 2016 15:09 - CONCLUSION: 1. Mild interstitial prominence suggesting some degree of vascular congestion or volume overload. 2. No confluent infiltrate or effusions. Alejandro Dalton MD Laboratory Tests Test 08/28/16 04:27 Blood Gas Puncture Site RT RADIAL Blood Gas Patient Temperature 98.6 Blood Gas HCO3 23 Blood Gas Base Excess -1.1 Blood Gas Oxygen Saturation 88 Arterial Blood pH 7.41 Arterial Blood Partial 37 Pressure CO2 Arterial Blood Partial 59 Pressure O2 Arterial Blood Oxygen Content 14.3 Arterial Blood 1.4 Carboxyhemoglobin Arterial Blood Methemoglobin 1.0 Blood Gas Hemoglobin 11.6 Oxygen Delivery Device MASK Blood Gas Liter Flow 9 Troponin negative and BNP low at 16. Liver functions normal. Result Diagram: 08/27/16 0752 08/27/16 0752 Imaging Last 48 hours Impressions Chest X-Ray 08/28/16 0358 Signed Impressions: Service Date/Time: Sunday, August 28, 2016 03:57 - CONCLUSION: The study is more Midinspiratory with apparent increase in the bilateral interstitial opacities which may represent pulmonary edema versus a more chronic process such as interstitial lung disease. Cayden Barba MD Chest X-Ray 08/26/16 1445 Signed Impressions: Service Date/Time: Friday, August 26, 2016 15:09 - CONCLUSION: 1. Mild interstitial prominence suggesting some degree of vascular congestion or volume overload. 2. No confluent infiltrate or effusions. Alejandro Dalton MD Assessment and Plan Assessment and Plan Problems: Shortness of breath with hypoxemiathis clearly appears to be pulmonary with a very low BNP and preserved left ventricular function. This is most likely a chemotherapy-induced pneumonitis. I have discussed the case with Dr. hammond. Hyperlipidemia Breast cancer Recommendations: Pulmonary management per Dr. Hammond. Optimization of electrolytes with avoidance of diuresis. We need to ensure adequate hydration. DVT prophylaxis which I will leave to the primary service. I will not follow but be available if needed. All questions were answered. Luis Fernando Louie MD Aug 28, 2016 12:32
--- NOTE | 2016-08-28 14:26 | MB ---
cc: DELVIN KIRK M.D., ALAN WHITE, R. STEVEN M.D. ISKANDAR, ALAA M.D. DATE OF : 1940 DATE OF CONSULTATION: 08/28/2016 REASON FOR CONSULTATION: HISTORY OF PRESENT ILLNESS: The patient is a 76 year-old female with past medical history of left-sided breast cancer diagnosed in April of 2016, currently on chemotherapy in the form of Taxol and Herceptin. She was admitted to [facility] on August 26 under the hospitalist service after she was sent to the ER by her oncologist, Dr. Kirk, secondary to hypoxemia following chemotherapy. She was noted to have O2 saturation of 75% on room air and upon EMS arrival she was placed on 4 liters oxygen when her saturation improved to 92%. She underwent a VQ scan of the chest which showed low probability for pulmonary embolism and chest x-ray showed mild interstitial prominence suggesting vascular congestion or volume overload. The patient underwent CTA of the chest as well which showed no evidence of pulmonary embolism, however, it showed extensive ground-glass opacities and questionable pulmonary fibrosis per report. The patient reported progressive worsening of shortness of breath for the past one week prior to admission. She denies any chest pain, shortness of breath, cough, or any constitutional symptoms. In addition she denies any exposure to sick contacts. She has been receiving chemotherapy every Monday for the past 7 weeks and is being followed by Dr. Kirk, the patient's oncologist. The patient denies any use of oxygen at home and she is a nonsmoker. She has been requiring increased O2 and was subsequently transferred to ICU. Critical care medicine was consulted for critical care management. The patient is also being followed by Dr. Hammond from pulmonary service, Dr. Louie from cardiology. ABG was performed at 04:27 this morning which showed pH of 7.41, CO2 37, pAO2 59, bicarb 23, sats of 88% on 9 liter simple mask. Chest x-ray from this morning showed increase in bilateral interstitial opacities. The patient has been placed on a non-rebreather and she was given Lasix 40 mg IV push at 10:34 this morning. The patient denies any nausea, vomiting, abdominal pain. In addition she denies any orthopnea, PND or edema of lower extremities. PAST MEDICAL HISTORY: Significant for left-sided breast cancer. PAST SURGICAL HISTORY Previous left breast lumpectomy, previous cataract removal, previous appendectomy. Previous back surgery and knee replacement. ALLERGIES NO KNOWN DRUG ALLERGIES. SOCIAL HISTORY Nonsmoker, nondrinker. FAMILY HISTORY Noncontributory. MEDICATIONS: 1. Cymbalta. 2. Crestor. 3. Vesicare. REVIEW OF SYSTEMS As per HPI. The rest of the review of systems is unremarkable. PHYSICAL EXAMINATION: The patient is a 76 year-old female lying in bed in mild to moderate respiratory distress. VITAL SIGNS: Afebrile. Pulse of 112. Blood pressure 130/56. Saturation 93 to 97% on nonrebreather. HEENT: Atraumatic, normocephalic. Pupils equal, round and reactive to light and accommodation. Extraocular muscles intact. Conjunctivae pink. Nonicteric sclerae. Oral mucosa within normal. Neck: Supple. No JVD, adenopathy or thyromegaly. Trachea midline. Cardiovascular: Tachycardiac, normal S1-S2. No murmurs, rubs or gallops noted. Pulmonary exam: Bilateral equal air entry with coarse breath sounds and dry crackles at the bases bilaterally. Abdomen: Soft, nontender, no distension. Positive bowel sounds. Extremities: No cyanosis, clubbing or edema. Neuro: No focal sensory deficit. LABORATORY DATA: August 27: Sodium 142, potassium 3.5, chloride 108, CO2 19.8, BUN 11, creatinine 0.62. Glucose 126. WBC 6.1, hemoglobin 10.7, hematocrit 33, platelet count 355. Blood gas pH of 7.41, CO2 37, pAO2 59, bicarb 23, saturation 88%. RADIOGRAPHY VQ scan of the chest on August 26 showed low probability for PE. CT of the chest showed no PE, extensive ground-glass opacities, questionable pulmonary fibrosis. ECHOCARDIOGRAM Showed EF of 50-55% and grade 1 diastolic dysfunction. IMPRESSION 1. Acute hypoxemic respiratory failure. 2. Extensive ground-glass opacities. Differential diagnosis, hypersensitivity pneumonitis vs chemotherapy induced pulmonary toxicity/ interstitial pneumonitis versus other causes of valvulitis. 3. Left-sided breast cancer on chemotherapy. 4. Anemia. RECOMMENDATIONS 1. Monitor neuro status closely and avoid any sedatives. 2. continue with oxygen and maintain sats above 92%. 3. bronchodilators in the form of DuoNeb q. 4 plus q2 p.r.n. for shortness of breath. 4. Place on IV steroids. Solu-Medrol 40 mg IV q.8. Will repeat or will check ABG now. If there is any worsening in respiratory status or clinical condition, we will proceed with intubation and mechanical ventilation. 5. The patient is also on Symbicort. Dr. Hammond from pulmonary service is following, discussed with him. 6. Monitor heart rate and blood pressure closely and maintain MAP greater than 65 mmHg. Echocardiogram showed normal LV function with grade 1 diastolic dysfunction. Cardiology service is following, Dr. Louie. 7. Monitor renal function I&O and electrolyte replacement per protocol. She was given Lasix 40 mg IV push earlier. Will hold off on further diuretics. 8. Keep n.p.o. for now until respiratory status improves. Place on Protonix 40 milligrams IV daily. 9. Continue with empiric antibiotics in the form of Levaquin and monitor for signs of infection which include fever and WBC. 10. Will check urinalysis with culture if indicated and sputum culture. 11. Monitor CBC. 12. Place on sliding scale insulin with Accu-Chek q. 6-hour for glycemic control as the patient will be on IV steroids. 13. GI prophylaxis. Will place on Protonix 40 milligrams daily and heparin subcu for DVT prophylaxis. The case discussed with ICU nursing staff, Dr. Hammond and Dr. Louie. Further recommendations will be based on hospital course. MD SIMI Sharpe/KIZZY /12:42 PM /2:11 PM [facility]
[2016-08-28] MEDS: RESP: ALBUTEROL 2.5 MG/IPRATROPIUM 0.5 MG NEB (SCH) NEB ×3 (14:52→23:27)
[2016-08-28 15:03] LABS: AUTOMATED NEUTROPHIL # 7.2 TH/MM3 (1.8-7.7); BASOPHIL % 0.3 % (0.0-2.0); EOSINOPHIL % 0.1 % (0.0-4.0); HEMATOCRIT 33.5 % (35.0-46.0); HEMO FLAGS DIFF FINAL; LYMPH % 3.8 % (9.0-44.0); LYMPHOCYTE # 0.3 TH/MM3 (1.0-4.8); MEAN CELL VOLUME 85.5 FL (80.0-100.0); MEAN CORPUSCULAR HEMOGLOBIN 27.3 PG (27.0-34.0); MEAN CORPUSCULAR HGB CONC 31.9 % (32.0-36.0); MONO % 2.5 % (0.0-8.0); NEUT % 93.3 % (16.0-70.0); PLATELET COUNT 340 TH/MM3 (150-450); RED BLOOD COUNT 3.92 MIL/MM3 (4.00-5.30); RED CELL DISTRIBUTION WIDTH 15.7 % (11.6-17.2); WHITE BLOOD COUNT 7.7 TH/MM3 (4.0-11.0)
[2016-08-28 15:14] LABS: BLOOD GAS BASE EXCESS -0.9 mmol/L (-2-2); BLOOD GAS CARBOXYHEMOGLOBIN 1.5 % (0-4); BLOOD GAS HCO3 23 mmol/L (22-26); BLOOD GAS METHEMOGLOBIN 1.3 % (0-2); BLOOD GAS O2 HGB SATURATION 88 % (90-100); BLOOD GAS OXYGEN CONTENT 13.1 Vol % (12.0-20.0); BLOOD GAS PCO2 33 mmHg (38-42); BLOOD GAS PO2 58 mmHg (61-120); BLOOD GAS TOTAL HGB 10.6 G/DL (12.0-16.0); TEMP CORR TO 98.6
[2016-08-28 15:15] LABS: CRITICAL VALUE YES; DRAW SITE RT RADIAL; FIO2 75 %; LITER FLOW 20 L/M; NUMBER OF ARTERIAL PUNCTURES 1; OXYGEN DEVICE HIGH FLOW; STAT NO; ULNAR PULSE PRESENT
[2016-08-28 15:16] LABS: BLOOD, URINE NEG (NEG); COMMENT (UR) CATH-CULT NOT IND; CULTURE IF INDICATED CATH CULTURE NOT IND; GLUCOSE,URINE NEG (NEG); HYALINE CAST, URINE 3 /lpf (RARE); KETONE, URINE NEG (NEG); MUCUS URINE FEW /lpf (OCC); NITRITE,URINE NEG (NEG); PH, URINE 5.5 (5.0-8.5); URINE COLOR LIGHT-YELLOW (YELLW/STRAW)
[2016-08-28 15:26] LABS: ALT (GPT) 25 U/L (10-53); ANION GAP 10 MEQ/L (5-15); AST (GOT) 29 U/L (15-37); BLOOD UREA NITROGEN 10 MG/DL (7-18); CHLORIDE 103 MEQ/L (98-107); GLOMERULAR FILTRATION RATE 84 ML/MIN (>89); MAGNESIUM 2.1 MG/DL (1.5-2.5); POTASSIUM 3.2 MEQ/L (3.5-5.1); SODIUM (NA) 140 MEQ/L (136-145)
[2016-08-28 15:28] LABS: ALKALINE PHOSPHATASE 74 U/L (45-117); TOTAL BILIRUBIN ADULT 0.9 MG/DL (0.2-1.0)
--- NOTE | 2016-08-28 16:12 | MB ---
cc: DELVIN KIRK M.D., R. STEVEN M.D. DATE OF CONSULTATION: 08/28/2016. REASON FOR CONSULTATION: Ms. Valverde is a 76-year-old white female in reasonably good health until a recent diagnosis of breast cancer. She has had no previous preexisting lung disease. She has never smoked and has no secondhand smoke exposure. She has had no other pulmonary symptoms leading up to her most recent chemotherapy with Taxol and Herceptin which she received on Monday at the oncology center. She had not experienced dyspnea prior to that visit but during and after that treatment she became short of breath and hypoxic. She was referred to the emergency room. She had a CT angiogram which revealed no evidence of thromboembolism but she did have ground-glass opacities in both lungs. For some reason she also had a lung ventilation perfusion scan which was low probability for pulmonary embolism. She was admitted for suspected pneumonia or congestive heart failure. The patient is short of breath. She has had minimal nonproductive cough. No sputum. She has had no fever of substernal fallen to four area. SOCIAL HISTORY: She has had no chest pain. She has had no swelling in her legs. She has a history of gastroesophageal reflux disease but has not been symptomatic recently and only takes Protonix or Prilosec on a p.r.n. basis. She had an endoscopy up in [place] at some point in the past and no specific or serious abnormalities were identified. ADDITIONAL PAST HISTORY: 1. She has had surgery on the right knee in 2017. No thromboembolism or postoperative complications. 2. She has had cataract removal in the past. 3. Appendectomy. 4. No prior cardiovascular history. ALLERGIES: None. SOCIAL HISTORY: and living with her . Originally from [place]. She has lived in this area for 7 years. 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 They have a dog at home but no other unusual animals and they have not travelled recently in fact this year at all. She does not drink alcohol. MEDICATIONS AT HOME: 1. Crestor. 2. Cymbalta. 3. Vesicare for bladder incontinence. MEDICATIONS: Reviewed in the EMR. REVIEW OF SYSTEMS: Review of systems other than that noted above, no recent diarrhea or abdominal pain. No fever. No cough or congestion prior to admission. PHYSICAL EXAMINATION: VITAL SIGNS: 98, 130/56, respirations 22-26, O2 sats 100% on a partial non-rebreather and 93-95% on high-flow system pulse is 90, blood pressure 130/60. HEAD, EYES, EARS, NOSE, THROAT: Sclerae anicteric. NECK: Neck veins are flat. CHEST/LUNGS: Dry basilar and mid posterior lung rales. No wheezes. HEART: Regular rhythm. No harsh murmur. ABDOMEN: Abdomen is soft. EXTREMITIES: No peripheral edema. No calf tenderness. No cyanosis or clubbing. CARDIOLOGY STUDIES: Echocardiogram reviewed with Dr. Luis Fernando Louie: nothing apparent there with good LV function. LABORATORY: White count 6100, hemoglobin 10.7. BNP is 16. BUN and creatinine are normal. Albumin is low at 2.65. ABG: pH 7.4, pCO2 37, pO2 59. DISCUSSION: Mrs. Valverde presents with rather acute onset of dyspnea with her seventh chemotherapy with Taxol and Herceptin on Monday. She has diffuse ground glass densities on the CT scan and I think she has probably had a drug reaction either to the Taxol or Herceptin. This has been described as a potential toxicity of both of these drugs and the drugs in combination. It does not appear that she has any evidence of obstructive lung disease so we will cancel aerosol therapy other than its use p.r.n. Will continue high flow oxygen to maintain adequate saturation and begin her on 40 mg IV Solu-Medrol every 8 hours monitoring her response. It is not apparent that she has any infection but in this circumstance, I agree with continuing her on Levaquin, at least temporarily. She will be monitored in the intensive care unit due to the hypoxemia. Further diagnostic and/or therapeutic intervention will depend on her response and ongoing clinical course. I have reviewed this thoroughly with her and her , and answered their questions as well. I also spoke to Dr. Hansen, critical care, who is seeing her, and Dr. Louie and Dr. Kirk, her oncologist. R. MD SAMMIE Mcgee/ANNIE /2:10 PM /4:05 PM
[2016-08-28] MEDS ORDERED: POTASSIUM PHOSPHATE MONOBASIC 500 MG TAB PO/TUBE PRN (16:30)
[2016-08-28] MEDS ORDERED: SODIUM PHOSPHATE INJ 30 MMOL in SODIUM CHLOR 0.9% 250 ML INJ 240 ML IV PRN (16:30)
[2016-08-28] MEDS ORDERED: MAGNESIUM OXIDE 400 MG TAB PO PRN (16:30)
[2016-08-28] MEDS ORDERED: POTASSIUM PHOSPHATE INJ 30 MMOL in SODIUM CHLOR 0.9% 250 ML INJ 250 ML IV PRN (16:30)
[2016-08-28] MEDS ORDERED: POTASSIUM CHLOR 20 MEQ PREMIX 100 ML IV PRN ×2 (16:30)
[2016-08-28] MEDS ORDERED: POTASSIUM CHLORIDE 25 MEQ EFFERVESCENT TAB PO PRN (16:30)
[2016-08-28] MEDS ORDERED: MAGNESIUM SULFATE INJ 4 GM in SODIUM CHLORIDE 0.9% INJ 92 ML IV PRN (16:30)
[2016-08-28] MEDS ORDERED: MAGNESIUM SULFATE INJ 2 GM in SODIUM CHLORIDE 0.9% INJ 96 ML IV PRN (16:30)
[2016-08-28] MEDS ORDERED: POTASSIUM CHLOR 40 MEQ PREMIX 100 ML IV PRN ×2 (16:30)
[2016-08-28] MEDS: POTASSIUM PHOSPHATE MONOBASIC 500 MG TAB PO PRN (19:22)
[2016-08-28] MEDS ORDERED: CHLORHEXIDINE GLUCONATE 2 % 1 PACK (2 CLOTHS)(extra cloths) TOPICAL PRN (19:30)
[2016-08-28] MEDS: LEVOFLOXACIN 750 MG PREMIX INJ 150 ML IV SCH (20:22)
[2016-08-28] MEDS: methylPREDNISolone SOD SUCC 40 MG/1 ML VIAL IV SCH (20:23)
--- NOTE | 2016-08-28 23:16 | MB ---
cc: JUDSON LUONG ABDUL J. M.D. DATE OF CONSULTATION: 08/27/2016 REQUESTING PHYSICIAN: Dr. Luong REASON FOR CONSULTATION: Evaluation of breast cancer. HISTORY OF PRESENT ILLNESS Romy is a pleasant 76-year-old female. The patient was recently diagnosed with triple positive left breast cancer. The patient had lumpectomy and sentinel lymph node sampling. This revealed 0.8 cm moderately differentiated infiltrating ductal carcinoma. All six lymph nodes were negative. The patient was started on weekly Herceptin and Taxol chemotherapy on July 15. So far the patient has been tolerating the treatment quite well. The patient came in yesterday for her chemotherapy. Prior to starting the chemotherapy, the patient was found to be hypoxic. Her O2 saturation was 88%. She was placed on two liters nasal cannula and her O2 saturation improved to 96%. Subsequently the patient had received chemotherapy, Taxol and then Herceptin. After finishing the treatment, when the patient went to the bathroom she became quite short of breath. Her O2 saturation dropped to 70%. The patient was placed back on oxygen. Paramedics were called for the patient to be taken to the emergency room. The patient had a V/Q scan in the emergency room yesterday which was low probability for pulmonary embolism. Her chest x-ray showed mild interstitial prominence suggestive of some degree of vascular congestion of volume overload. No infiltrate or effusion was noted. The patient was subsequently admitted to the hospital for possible pneumonia. The patient has been on the antibiotics. I have been asked to see her for further evaluation. The patient has been complaining of shortness of breath and cough. She has dyspnea on exertion. She denies any other significant problem. She denies any chest pain. The rest of the review of systems is negative. PAST MEDICAL HISTORY Recently diagnosed left breast cancer, hemorrhoids, arthritis. PAST SURGICAL HISTORY 1. Left breast lumpectomy and sentinel lymph node sampling. 2. Right knee surgery. 3. Left knee surgery. 4. Colonoscopy. 5. Cataract. 6. Appendectomy. 7. [id number]. ALLERGIES None. MEDICATIONS Prior to coming to the hospital: 1. Crestor. 2. Cymbalta. 3. Taxol. 4. Herceptin. FAMILY HISTORY Mother from natural causes. Father from metastatic prostate cancer. The patient has one brother, one sister, one son and two daughters, all alive and well. However, one of the sisters is a breast cancer survivor. SOCIAL HISTORY The patient is . She does not smoke cigarettes and occasionally drinks alcohol. 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 PHYSICAL EXAMINATION: The patient is a well-developed, well-nourished white female, in no apparent distress. VITAL SIGNS: Temperature 97.6, heart rate is 95, blood pressure 177/58, O2 saturation 94% on five liters nasal cannula. HEENT: PERRLA, EOMI, anicteric. No oral lesions are noted. Neck: Supple. There is no cervical, supraclavicular or axillary lymphadenopathy noted. Lungs: Lungs are clear. No wheezing, rhonchi or rales. Heart: Heart is regular rate and rhythm. Abdomen is soft, nontender. No hepatosplenomegaly. Extremities: No pedal edema. Neurology: Awake, alert, oriented times three. Skin: No significant lesions noted. ASSESSMENT 1. Hypoxia with pulmonary interstitial congestion. This could be possibly related to congestive heart failure versus hypersensitivity reaction from either Taxol or Herceptin or both. 2. Left breast cancer triple positive status post lumpectomy and sentinel lymph node sampling, currently receiving adjuvant chemotherapy, Taxol and Herceptin. PLAN I have reviewed her available records and I have discussed with the patient regarding the reason for hypoxia. The patient has significant hypoxia. The chest x-ray showed bilateral pulmonary interstitial changes which I believe is either due to congestive heart failure as she is on Herceptin or this could be due to Taxol or Herceptin inflammatory changes. I have ordered a stat echocardiogram to evaluate for left ventricular ejection fraction since she is on Herceptin which is cardiotoxic. Further recommendations once we have the results of the echocardiogram. The case has been discussed with Dr. Luong, admission physician. Further recommendations to follow. Thank you for asking my opinion. MD HETAL Cosme/KIZZY /10:34 PM /10:57 PM
[2016-08-29] VITALS (20 sets, daily range): BP systolic 110–142; BP diastolic 54–68; PULSE 85–113; RESP 27–51; TEMP 97.7–98.6; O2SAT 86–99
--- NOTE | 2016-08-29 00:07 | PD.ONC.PN ---
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 92 08/28/16 18:00 100 08/28/16 16:00 98.6 103 39 118/59 94 08/28/16 16:00 103 08/28/16 15:00 105 36 118/60 98 08/28/16 14:00 106 39 124/63 93 08/28/16 14:00 106 08/28/16 12:40 93 High Flow Nasal Cannula 20.00 65 08/28/16 12:30 98 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 70 08/28/16 12:00 98.8 97 28 130/56 98 08/28/16 12:00 97 08/28/16 11:00 97.5 104 35 147/75 93 08/28/16 11:00 100 08/28/16 10:00 94 08/28/16 09:00 100 08/28/16 08:55 100 Non-Rebreather 100 08/28/16 08:47 90 Nasal Cannula 6.00 08/28/16 08:00 100 08/28/16 07:41 100 60 08/28/16 07:00 99 Bi-Pap 08/28/16 07:00 100 Bi-Pap 60 08/28/16 07:00 94 08/28/16 07:00 98.3 93 35 128/70 98 08/28/16 06:00 101 08/28/16 05:12 98 60 08/28/16 05:00 98.0 105 26 156/83 98 08/28/16 05:00 108 08/28/16 05:00 98 Bi-Pap 08/28/16 04:20 94 Simple Mask 8.00 08/28/16 04:00 97.9 94 18 134/62 99 Result Diagram: 08/28/16 1440 08/28/16 1440 Laboratory Results Laboratory Tests Test 08/28/16 08/28/16 08/28/16 08/28/16 04:27 11:52 13:00 14:40 Blood Gas Puncture Site RT RADIAL Blood Gas Patient Temperature 98.6 Blood Gas HCO3 23 mmol/L Blood Gas Base Excess -1.1 mmol/L Blood Gas Oxygen Saturation 88 % Arterial Blood pH 7.41 Arterial Blood Partial 37 mmHg Pressure CO2 Arterial Blood Partial 59 mmHg Pressure O2 Arterial Blood Oxygen Content 14.3 Vol % Arterial Blood 1.4 % Carboxyhemoglobin Arterial Blood Methemoglobin 1.0 % Blood Gas Hemoglobin 11.6 G/DL Oxygen Delivery Device MASK Blood Gas Liter Flow 9 L/M Nasal Screen MRSA (PCR) MRSA NOT DETECTED Urine Color LIGHT-YELLOW Urine Turbidity CLEAR Urine pH 5.5 Urine Specific [place] 1.012 Urine Protein NEG mg/dL Urine Glucose (UA) NEG mg/dL Urine Ketones NEG mg/dL Urine Occult Blood NEG Urine Nitrite NEG Urine Bilirubin NEG Urine Urobilinogen LESS THAN 2.0 MG/DL Urine Leukocyte Esterase NEG Urine RBC 5 /hpf Urine WBC 1 /hpf Urine Hyaline Casts 3 /lpf Urine Mucus FEW /lpf Microscopic Urinalysis Comment CATH-CULT NOT IND White Blood Count 7.7 TH/MM3 Red Blood Count 3.92 MIL/MM3 Hemoglobin 10.7 GM/DL Hematocrit 33.5 % Mean Corpuscular Volume 85.5 FL Mean Corpuscular Hemoglobin 27.3 PG Mean Corpuscular Hemoglobin 31.9 % Concent Red Cell Distribution Width 15.7 % Platelet Count 340 TH/MM3 Mean Platelet Volume 8.9 FL Neutrophils (%) (Auto) 93.3 % Lymphocytes (%) (Auto) 3.8 % Monocytes (%) (Auto) 2.5 % Eosinophils (%) (Auto) 0.1 % Basophils (%) (Auto) 0.3 % Neutrophils # (Auto) 7.2 TH/MM3 Lymphocytes # (Auto) 0.3 TH/MM3 Monocytes # (Auto) 0.2 TH/MM3 Eosinophils # (Auto) 0.0 TH/MM3 Basophils # (Auto) 0.0 TH/MM3 CBC Comment DIFF FINAL Differential Comment Sodium Level 140 MEQ/L Potassium Level 3.2 MEQ/L Chloride Level 103 MEQ/L Carbon Dioxide Level 27.0 MEQ/L Anion Gap 10 MEQ/L Blood Urea Nitrogen 10 MG/DL Creatinine 0.68 MG/DL Estimat Glomerular Filtration 84 ML/MIN Rate Random Glucose 165 MG/DL Calcium Level 9.0 MG/DL Phosphorus Level 2.6 MG/DL Magnesium Level 2.1 MG/DL Total Bilirubin 0.9 MG/DL Aspartate Amino Transf 29 U/L (AST/SGOT) Alanine Aminotransferase 25 U/L (ALT/SGPT) Alkaline Phosphatase 74 U/L Total Protein 7.2 GM/DL Albumin 2.8 GM/DL Test 08/28/16 08/28/16 15:07 18:39 Blood Gas Puncture Site RT RADIAL Blood Gas Patient Temperature 98.6 Blood Gas HCO3 23 mmol/L Blood Gas Base Excess -0.9 mmol/L Blood Gas Oxygen Saturation 88 % Arterial Blood pH 7.45 Arterial Blood Partial 33 mmHg Pressure CO2 Arterial Blood Partial 58 mmHg Pressure O2 Arterial Blood Oxygen Content 13.1 Vol % Arterial Blood 1.5 % Carboxyhemoglobin Arterial Blood Methemoglobin 1.3 % Blood Gas Hemoglobin 10.6 G/DL Oxygen Delivery Device HIGH FLOW Blood Gas Liter Flow 20 L/M Blood Gas Inspired Oxygen 75 % Phosphorus Level 2.7 MG/DL Imaging Studies Last 24 hours Impressions Chest X-Ray 08/28/16 0358 Signed Impressions: Service Date/Time: Sunday, August 28, 2016 03:57 - CONCLUSION: The study is more Midinspiratory with apparent increase in the bilateral interstitial opacities which may represent pulmonary edema versus a more chronic process such as interstitial lung disease. Cayden Barba MD Administered Medications Medications (Trade) Dose Ordered Sig/Aurelia Route PRN Reason Start Time Stop Time Status Last Admin Dose Admin Budesonide/ Formoterol Fumarate (Symbicort 160-4.5 Inh) 2 puff Q12HR INH 08/26/16 21:00 08/28/16 20:22 Guaifenesin (Mucinex Er) 600 mg BID PO 08/26/16 21:00 08/28/16 20:23 Sodium Chloride (NS Flush) 2 ml BID IV FLUSH 08/26/16 21:00 08/28/16 20:23 Heparin Sodium (Porcine) (Heparin Inj) 5,000 units Q8H SQ 08/26/16 20:00 08/28/16 20:23 Senna/Docusate Sodium 1 tab 1 tab BID PO 08/26/16 21:00 08/28/16 10:05 Levofloxacin/ Dextrose (Levaquin 750 Mg Premix Inj) 150 ml @ 100 mls/hr Q24H IV 08/27/16 21:00 08/28/16 20:22 Duloxetine HCl (Cymbalta Dr) 60 mg DAILY PO 08/27/16 09:00 08/28/16 10:05 Atorvastatin Calcium (Lipitor) 80 mg DAILY PO 08/27/16 09:00 08/28/16 10:05 Tolterodine Tartrate (Detrol La) 2 mg DAILY PO 08/27/16 09:00 08/28/16 10:06 Insulin Human Regular (NovoLIN R SUPPLEMENTAL SCALE) 1 Q6HR SQ 08/28/16 12:30 08/28/16 18:00 Methylprednisolone Sodium Succinate (SoluMEDROL INJ) 40 mg Q8HR IV 08/28/16 22:00 08/28/16 20:23 Potassium Phosphate (K-Phos) 2,000 mg Q4H PRN PO For Phosphorus < 2.5 mg/dL 08/28/16 16:30 08/28/16 19:22 Objective Remarks GENERAL: Well-nourished, well-developed patient. SKIN: Warm and dry. HEAD: Normocephalic. EYES: No scleral icterus. No injection or drainage. NECK: Supple, trachea midline. No JVD or lymphadenopathy. LYMPHATIC: No adenopathy. CARDIOVASCULAR: Regular rate and rhythm without murmurs. RESPIRATORY: Breath sounds equal bilaterally. No accessory muscle use. GASTROINTESTINAL: Abdomen soft, non-tender, nondistended. EXTREMITIES: No cyanosis, or edema. MUSCULOSKELETAL: Adequate muscle tone. NEUROLOGICAL: No obvious focal deficit. Awake, alert, and oriented x3. PSYCHIATRIC: Appropriate mood and affect; insight and judgment normal. Assessment/Plan Problem List: (1) Hypoxia Status: Acute Plan: ECHO = no decrease LVEF CXR = ground glass appearance She has pulmonary toxicity either due to herceptin or taxol D/W Dr Hammond . Agree with solumedrol for pulmonary inflammation. d/w pt. (2) Breast CA Status: Acute Plan: no further chemo. Tiburcio Kirk MD Aug 29, 2016 00:07
[2016-08-29] MEDS: CHLORHEXIDINE GLUCONATE 2 % 1 PACK (2 CLOTHS)(taper/protocol) TOPICAL SCH (04:00)
[2016-08-29] MEDS: RESP: ALBUTEROL 2.5 MG/IPRATROPIUM 0.5 MG NEB (SCH) NEB ×4 (04:17→19:33)
[2016-08-29] MEDS: methylPREDNISolone SOD SUCC 40 MG/1 ML VIAL IV SCH (05:14)
[2016-08-29] MEDS: INSULIN NovoLIN REGULAR SUPPLEMENTAL SCALE SQ SCH ×3 (05:14→18:00)
[2016-08-29] MEDS: HEPARIN SODIUM - SQ 10,000 UNITS/ML VIAL SQ SCH ×3 (05:14→21:26)
[2016-08-29 06:51] LABS: HEMATOCRIT 30.3 % (35.0-46.0); HEMO FLAGS DIFF FINAL; MEAN CELL VOLUME 83.8 FL (80.0-100.0); MEAN CORPUSCULAR HEMOGLOBIN 27.2 PG (27.0-34.0); MEAN CORPUSCULAR HGB CONC 32.5 % (32.0-36.0); PLATELET COUNT 323 TH/MM3 (150-450); RED BLOOD COUNT 3.62 MIL/MM3 (4.00-5.30); RED CELL DISTRIBUTION WIDTH 15.7 % (11.6-17.2); WHITE BLOOD COUNT 5.1 TH/MM3 (4.0-11.0)
[2016-08-29 06:52] LABS: AUTOMATED NEUTROPHIL # 4.7 TH/MM3 (1.8-7.7); BASOPHIL % 0.1 % (0.0-2.0); LYMPH % 5.5 % (9.0-44.0); LYMPHOCYTE # 0.3 TH/MM3 (1.0-4.8); MONO % 1.4 % (0.0-8.0)
[2016-08-29 07:07] LABS: BICARBONATE 27.1 MEQ/L (21.0-32.0); POTASSIUM 3.6 MEQ/L (3.5-5.1)
--- NOTE | 2016-08-29 07:22 | HHI.CCPN ---
Subjective Remarks/Hospital Course The patient is a 76 year-old female with past medical history of left-sided breast cancer diagnosed in April of 2016, currently on chemotherapy in the form of Taxol and Herceptin. She was admitted to [facility] on August 26 under the hospitalist service after she was sent to the ER by her oncologist, Dr. Kirk, secondary to hypoxemia following chemotherapy. She was noted to have O2 saturation of 75% on room air and upon EMS arrival she was placed on 4 liters oxygen when her saturation improved to 92%. She underwent a VQ scan of the chest which showed low probability for pulmonary embolism and chest x-ray showed mild interstitial prominence suggesting vascular congestion or volume overload. The patient underwent CTA of the chest as well which showed no evidence of pulmonary embolism, however, it showed extensive ground-glass opacities and questionable pulmonary fibrosis per report. The patient reported progressive worsening of shortness of breath for the past one week prior to admission. She denies any chest pain, shortness of breath, cough, or any constitutional symptoms. In addition she denies any exposure to sick contacts. She has been receiving chemotherapy every Monday for the past 7 weeks and is being followed by Dr. Kirk, the patient's oncologist. The patient denies any use of oxygen at home and she is a nonsmoker. She has been requiring increased O2 and was subsequently transferred to ICU. Critical care medicine was consulted for critical care management. The patient is also being followed by Dr. Hammond from pulmonary service, Dr. Louie from cardiology. ABG was performed at 04:27 this morning which showed pH of 7.41, CO2 37, pAO2 59, bicarb 23, sats of 88% on 9 liter simple mask. Chest x-ray from this morning showed increase in bilateral interstitial opacities. The patient has been placed on a non-rebreather and she was given Lasix 40 mg IV push at 10:34 this morning. The patient denies any nausea, vomiting, abdominal pain. In addition she denies any orthopnea, PND or edema of lower extremities. 08/29 No acute events overnight. On High flow oxygen with 70% FIO2. Afebrile. Objective Vital Signs Date Time Temp Pulse Resp B/P Pulse Ox O2 Delivery O2 Flow Rate FiO2 08/29/16 06:00 87 08/29/16 04:00 98.6 32 126/63 93 08/28/16 23:29 High Flow Nasal Cannula 25.00 74 Intake and Output 08/28/16 08/28/16 08/29/16 08:00 16:00 00:00 Intake Total 120 ml 150 ml Output Total 800 ml 550 ml Balance -680 ml -400 ml Result Diagram: 08/29/16 0554 08/29/16 0554 Other Results Laboratory Tests Test 08/28/16 08/28/16 08/28/16 08/28/16 11:52 13:00 14:40 15:07 Nasal Screen MRSA (PCR) MRSA NOT DETECTED Urine Color LIGHT-YELLOW Urine Turbidity CLEAR Urine pH 5.5 Urine Specific [place] 1.012 Urine Protein NEG mg/dL Urine Glucose (UA) NEG mg/dL Urine Ketones NEG mg/dL Urine Occult Blood NEG Urine Nitrite NEG Urine Bilirubin NEG Urine Urobilinogen LESS THAN 2.0 MG/DL Urine Leukocyte Esterase NEG Urine RBC 5 /hpf Urine WBC 1 /hpf Urine Hyaline Casts 3 /lpf Urine Mucus FEW /lpf Microscopic Urinalysis Comment CATH-CULT NOT IND White Blood Count 7.7 TH/MM3 Red Blood Count 3.92 MIL/MM3 Hemoglobin 10.7 GM/DL Hematocrit 33.5 % Mean Corpuscular Volume 85.5 FL Mean Corpuscular Hemoglobin 27.3 PG Mean Corpuscular Hemoglobin 31.9 % Concent Red Cell Distribution Width 15.7 % Platelet Count 340 TH/MM3 Mean Platelet Volume 8.9 FL Neutrophils (%) (Auto) 93.3 % Lymphocytes (%) (Auto) 3.8 % Monocytes (%) (Auto) 2.5 % Eosinophils (%) (Auto) 0.1 % Basophils (%) (Auto) 0.3 % Neutrophils # (Auto) 7.2 TH/MM3 Lymphocytes # (Auto) 0.3 TH/MM3 Monocytes # (Auto) 0.2 TH/MM3 Eosinophils # (Auto) 0.0 TH/MM3 Basophils # (Auto) 0.0 TH/MM3 CBC Comment DIFF FINAL Differential Comment Sodium Level 140 MEQ/L Potassium Level 3.2 MEQ/L Chloride Level 103 MEQ/L Carbon Dioxide Level 27.0 MEQ/L Anion Gap 10 MEQ/L Blood Urea Nitrogen 10 MG/DL Creatinine 0.68 MG/DL Estimat Glomerular Filtration 84 ML/MIN Rate Random Glucose 165 MG/DL Calcium Level 9.0 MG/DL Phosphorus Level 2.6 MG/DL Magnesium Level 2.1 MG/DL Total Bilirubin 0.9 MG/DL Aspartate Amino Transf 29 U/L (AST/SGOT) Alanine Aminotransferase 25 U/L (ALT/SGPT) Alkaline Phosphatase 74 U/L Total Protein 7.2 GM/DL Albumin 2.8 GM/DL Blood Gas Puncture Site RT RADIAL Blood Gas Patient Temperature 98.6 Blood Gas HCO3 23 mmol/L Blood Gas Base Excess -0.9 mmol/L Blood Gas Oxygen Saturation 88 % Arterial Blood pH 7.45 Arterial Blood Partial 33 mmHg Pressure CO2 Arterial Blood Partial 58 mmHg Pressure O2 Arterial Blood Oxygen Content 13.1 Vol % Arterial Blood 1.5 % Carboxyhemoglobin Arterial Blood Methemoglobin 1.3 % Blood Gas Hemoglobin 10.6 G/DL Oxygen Delivery Device HIGH FLOW Blood Gas Liter Flow 20 L/M Blood Gas Inspired Oxygen 75 % Test 08/28/16 08/29/16 18:39 05:54 Phosphorus Level 2.7 MG/DL White Blood Count 5.1 TH/MM3 Red Blood Count 3.62 MIL/MM3 Hemoglobin 9.8 GM/DL Hematocrit 30.3 % Mean Corpuscular Volume 83.8 FL Mean Corpuscular Hemoglobin 27.2 PG Mean Corpuscular Hemoglobin 32.5 % Concent Red Cell Distribution Width 15.7 % Platelet Count 323 TH/MM3 Mean Platelet Volume 9.3 FL Neutrophils (%) (Auto) 93.0 % Lymphocytes (%) (Auto) 5.5 % Monocytes (%) (Auto) 1.4 % Eosinophils (%) (Auto) 0.0 % Basophils (%) (Auto) 0.1 % Neutrophils # (Auto) 4.7 TH/MM3 Lymphocytes # (Auto) 0.3 TH/MM3 Monocytes # (Auto) 0.1 TH/MM3 Eosinophils # (Auto) 0.0 TH/MM3 Basophils # (Auto) 0.0 TH/MM3 CBC Comment DIFF FINAL Differential Comment Sodium Level 137 MEQ/L Potassium Level 3.6 MEQ/L Chloride Level 100 MEQ/L Carbon Dioxide Level 27.1 MEQ/L Anion Gap 10 MEQ/L Blood Urea Nitrogen 13 MG/DL Creatinine 0.48 MG/DL Estimat Glomerular Filtration 125 ML/MIN Rate Random Glucose 138 MG/DL Calcium Level 9.0 MG/DL Imaging Last Impressions Chest X-Ray 08/28/16 0358 Signed Impressions: Service Date/Time: Sunday, August 28, 2016 03:57 - CONCLUSION: The study is more Midinspiratory with apparent increase in the bilateral interstitial opacities which may represent pulmonary edema versus a more chronic process such as interstitial lung disease. Cayden Barba MD Lung Scan-VQ Nuclear Medicine 08/26/16 0000 Signed Impressions: Service Date/Time: Friday, August 26, 2016 20:26 - CONCLUSION: 1. Low probability for pulmonary embolus. Checo Conner MD Objective Remarks GENERAL: Patient is lying in bed in NAD SKIN: Warm and dry. HEAD: Normocephalic. EYES: No scleral icterus. No injection or drainage. NECK: Supple, trachea midline. No JVD or lymphadenopathy. CARDIOVASCULAR: Regular rate and rhythm without murmurs, gallops, or rubs. RESPIRATORY: Breath sounds equal bilaterally. Coarse BS/crackles GASTROINTESTINAL: Abdomen soft, non-tender, nondistended. MUSCULOSKELETAL: No cyanosis, or edema. BACK: Nontender without obvious deformity. No CVA tenderness. A/P Assessment and Plan 1. Acute hypoxemic respiratory failure. 2. Extensive ground-glass opacities. Ddx: hypersensitivity pneumonitis vs chemotherapy induced pulmonary toxicity/ interstitial pneumonitis versus other causes of valvulitis. 3. Left-sided breast cancer on chemotherapy. 4. Anemia. Plan: Neuro: Monitor neuro status closely and avoid any sedatives. Pulm: wean down oxygen and maintain sats > 92%. Bronchodilators, Symbicort, Solu-Medrol 40 mg IV q.8. Pulm is following- Dr. Hammond CV: Monitor heart rate and blood pressure closely and maintain MAP > 65 mmHg. Echo showed normal LV function with grade 1 diastolic dysfunction. Cardiology is following, Dr. Louie. : Monitor renal function I&O and electrolyte replacement per protocol. GI: on Protonix 40mg IV daily. On PO diet ID: Continue with abx(Levaquin)and monitor for signs of infection( fever and WBC ). Heme: Monitor CBC. Endo: SSI with Accu-Chek q. 6-hour for glycemic control GI prophylaxis. Will place on Protonix 40 milligrams daily and heparin subcu for DVT prophylaxis. Level 3 Bernarda Hansen MD Aug 29, 2016 07:22
[2016-08-29] MEDS: TOLTERODINE TARTRATE 2 MG CAP LA PO SCH (09:11)
[2016-08-29] MEDS: SODIUM CHLORIDE 0.9% FLUSH 10 ML FLUSH IV FLUSH SCH ×2 (09:12→21:29)
[2016-08-29] MEDS: DULoxetine HCl DR 60 MG CAP PO SCH (09:12)
[2016-08-29] MEDS: DOCUSATE SODIUM 50 MG/SENNA 8.6 MG TAB PO SCH ×2 (09:12→21:26)
[2016-08-29] MEDS: BUDESONIDE-FORMOTEROL 160/4.5 MCG INHALER INH SCH (09:12)
[2016-08-29] MEDS: ATORVASTATIN 80 MG TAB PO SCH (09:12)
[2016-08-29] MEDS: guaiFENesin E.R. 600 MG TAB PO SCH ×2 (09:12→21:27)
--- NOTE | 2016-08-29 11:33 | PD.ONC.PN ---
Subjective Subjective Remarks Afebrile overnight. Remains short of breath. Currently on high flow O2 via NC. Wants to know how long she will have to be in the hospital. Hopes to be able to go home soon. Objective Data Date Time Temp Pulse Resp B/P Pulse Ox O2 Delivery O2 Flow Rate FiO2 08/29/16 10:00 113 08/29/16 09:00 98 33 138/64 90 08/29/16 08:00 98.4 92 28 142/65 94 08/29/16 08:00 92 08/29/16 07:24 99 High Flow Nasal Cannula 25.00 75 08/29/16 07:00 85 31 128/62 96 08/29/16 07:00 95 Switchgear Repairer 70 08/29/16 06:00 87 08/29/16 04:00 98.6 90 32 126/63 93 08/29/16 04:00 90 08/29/16 02:00 91 08/29/16 00:00 96 08/29/16 00:00 98.0 96 32 112/58 94 08/28/16 23:29 97 High Flow Nasal Cannula 25.00 74 08/28/16 22:00 100 08/28/16 20:00 104 08/28/16 20:00 97.9 104 37 116/73 92 08/28/16 19:00 98 Switchgear Repairer 92 08/28/16 18:00 100 08/28/16 16:00 98.6 103 39 118/59 94 08/28/16 16:00 103 08/28/16 15:00 105 36 118/60 98 08/28/16 14:00 106 39 124/63 93 08/28/16 14:00 106 08/28/16 12:40 93 High Flow Nasal Cannula 20.00 65 08/28/16 12:30 98 Switchgear Repairer 70 08/28/16 12:00 98.8 97 28 130/56 98 08/28/16 12:00 97 Result Diagram: 08/29/16 0554 08/29/16 0554 Laboratory Results Laboratory Tests Test 08/28/16 08/28/16 08/28/16 08/28/16 11:52 13:00 14:40 15:07 Nasal Screen MRSA (PCR) MRSA NOT DETECTED Urine Color LIGHT-YELLOW Urine Turbidity CLEAR Urine pH 5.5 Urine Specific Ione 1.012 Urine Protein NEG mg/dL Urine Glucose (UA) NEG mg/dL Urine Ketones NEG mg/dL Urine Occult Blood NEG Urine Nitrite NEG Urine Bilirubin NEG Urine Urobilinogen LESS THAN 2.0 MG/DL Urine Leukocyte Esterase NEG Urine RBC 5 /hpf Urine WBC 1 /hpf Urine Hyaline Casts 3 /lpf Urine Mucus FEW /lpf Microscopic Urinalysis Comment CATH-CULT NOT IND White Blood Count 7.7 TH/MM3 Red Blood Count 3.92 MIL/MM3 Hemoglobin 10.7 GM/DL Hematocrit 33.5 % Mean Corpuscular Volume 85.5 FL Mean Corpuscular Hemoglobin 27.3 PG Mean Corpuscular Hemoglobin 31.9 % Concent Red Cell Distribution Width 15.7 % Platelet Count 340 TH/MM3 Mean Platelet Volume 8.9 FL Neutrophils (%) (Auto) 93.3 % Lymphocytes (%) (Auto) 3.8 % Monocytes (%) (Auto) 2.5 % Eosinophils (%) (Auto) 0.1 % Basophils (%) (Auto) 0.3 % Neutrophils # (Auto) 7.2 TH/MM3 Lymphocytes # (Auto) 0.3 TH/MM3 Monocytes # (Auto) 0.2 TH/MM3 Eosinophils # (Auto) 0.0 TH/MM3 Basophils # (Auto) 0.0 TH/MM3 CBC Comment DIFF FINAL Differential Comment Sodium Level 140 MEQ/L Potassium Level 3.2 MEQ/L Chloride Level 103 MEQ/L Carbon Dioxide Level 27.0 MEQ/L Anion Gap 10 MEQ/L Blood Urea Nitrogen 10 MG/DL Creatinine 0.68 MG/DL Estimat Glomerular Filtration 84 ML/MIN Rate Random Glucose 165 MG/DL Calcium Level 9.0 MG/DL Phosphorus Level 2.6 MG/DL Magnesium Level 2.1 MG/DL Total Bilirubin 0.9 MG/DL Aspartate Amino Transf 29 U/L (AST/SGOT) Alanine Aminotransferase 25 U/L (ALT/SGPT) Alkaline Phosphatase 74 U/L Total Protein 7.2 GM/DL Albumin 2.8 GM/DL Blood Gas Puncture Site RT RADIAL Blood Gas Patient Temperature 98.6 Blood Gas HCO3 23 mmol/L Blood Gas Base Excess -0.9 mmol/L Blood Gas Oxygen Saturation 88 % Arterial Blood pH 7.45 Arterial Blood Partial 33 mmHg Pressure CO2 Arterial Blood Partial 58 mmHg Pressure O2 Arterial Blood Oxygen Content 13.1 Vol % Arterial Blood 1.5 % Carboxyhemoglobin Arterial Blood Methemoglobin 1.3 % Blood Gas Hemoglobin 10.6 G/DL Oxygen Delivery Device HIGH FLOW Blood Gas Liter Flow 20 L/M Blood Gas Inspired Oxygen 75 % Test 08/28/16 08/29/16 18:39 05:54 Phosphorus Level 2.7 MG/DL White Blood Count 5.1 TH/MM3 Red Blood Count 3.62 MIL/MM3 Hemoglobin 9.8 GM/DL Hematocrit 30.3 % Mean Corpuscular Volume 83.8 FL Mean Corpuscular Hemoglobin 27.2 PG Mean Corpuscular Hemoglobin 32.5 % Concent Red Cell Distribution Width 15.7 % Platelet Count 323 TH/MM3 Mean Platelet Volume 9.3 FL Neutrophils (%) (Auto) 93.0 % Lymphocytes (%) (Auto) 5.5 % Monocytes (%) (Auto) 1.4 % Eosinophils (%) (Auto) 0.0 % Basophils (%) (Auto) 0.1 % Neutrophils # (Auto) 4.7 TH/MM3 Lymphocytes # (Auto) 0.3 TH/MM3 Monocytes # (Auto) 0.1 TH/MM3 Eosinophils # (Auto) 0.0 TH/MM3 Basophils # (Auto) 0.0 TH/MM3 CBC Comment DIFF FINAL Differential Comment Sodium Level 137 MEQ/L Potassium Level 3.6 MEQ/L Chloride Level 100 MEQ/L Carbon Dioxide Level 27.1 MEQ/L Anion Gap 10 MEQ/L Blood Urea Nitrogen 13 MG/DL Creatinine 0.48 MG/DL Estimat Glomerular Filtration 125 ML/MIN Rate Random Glucose 138 MG/DL Calcium Level 9.0 MG/DL Administered Medications Medications (Trade) Dose Ordered Sig/Aurelia Route PRN Reason Start Time Stop Time Status Last Admin Dose Admin Budesonide/ Formoterol Fumarate (Symbicort 160-4.5 Inh) 2 puff Q12HR INH 08/26/16 21:00 08/29/16 09:12 Guaifenesin (Mucinex Er) 600 mg BID PO 08/26/16 21:00 08/29/16 09:12 Sodium Chloride (NS Flush) 2 ml BID IV FLUSH 08/26/16 21:00 08/29/16 09:12 Heparin Sodium (Porcine) (Heparin Inj) 5,000 units Q8H SQ 08/26/16 20:00 08/29/16 05:14 Senna/Docusate Sodium 1 tab 1 tab BID PO 08/26/16 21:00 08/29/16 09:12 Levofloxacin/ Dextrose (Levaquin 750 Mg Premix Inj) 150 ml @ 100 mls/hr Q24H IV 08/27/16 21:00 08/28/16 20:22 Duloxetine HCl (Cymbalta Dr) 60 mg DAILY PO 08/27/16 09:00 08/29/16 09:12 Atorvastatin Calcium (Lipitor) 80 mg DAILY PO 08/27/16 09:00 08/29/16 09:12 Tolterodine Tartrate (Detrol La) 2 mg DAILY PO 08/27/16 09:00 08/29/16 09:11 Insulin Human Regular (NovoLIN R SUPPLEMENTAL SCALE) 1 Q6HR SQ 08/28/16 12:30 08/28/16 18:00 Methylprednisolone Sodium Succinate (SoluMEDROL INJ) 40 mg Q8HR IV 08/28/16 22:00 08/29/16 05:14 Potassium Phosphate (K-Phos) 2,000 mg Q4H PRN PO For Phosphorus < 2.5 mg/dL 08/28/16 16:30 08/28/16 19:22 Chlorhexidine Gluconate (Chlorhexidine 2% Cloth) 3 pack DAILY@04 TOPICAL 08/29/16 04:00 09/02/16 04:01 08/29/16 04:00 Objective Remarks GENERAL: Chronically ill appearing elderly female, sitting up in bed talking on phone. SKIN: Warm and dry. HEAD: Normocephalic. EYES: No injection or drainage. NECK: Supple, trachea midline. CARDIOVASCULAR: Regular rate and rhythm RESPIRATORY: diminished at bases. scattered rhonchi. On high flow O2 via NC GASTROINTESTINAL: Abdomen soft, non-tender, nondistended. EXTREMITIES: No cyanosis MUSCULOSKELETAL: Adequate muscle tone. NEUROLOGICAL: No obvious focal deficit. Awake, alert, and oriented x3. Assessment/Plan Problem List: (1) Hypoxia Status: Acute Plan: 08/29: continue solu-medrol. monitor for response. --ECHO = no decrease LVEF --pulmonary toxicity either due to Herceptin or Taxol --dr. Hammond, pulmonology following --currently on Solu-medrol and Levaquin --V/Q scan in the emergency room which was low probability for pulmonary embolism. --chest x-ray showed mild interstitial prominence suggestive of some degree of vascular congestion of volume overload. No infiltrate or effusion was noted. (2) Breast CA Status: Acute Plan: no further chemo. --started on weekly Herceptin and Taxol chemotherapy on July 15. Assessment 76y/o with triple positive left breast cancer admitted with respiratory insufficiency. Attending Statement Complaining of shortness breath Still requires high oxygen Continue Solu-Medrol Discuss with patient and daughter will follow The exam, history, and the medical decision-making described in the above note were completed with the assistance of the mid-level provider. I reviewed and agree with the findings presented. I attest that I had a [id number] encounter with the patient on the same day, and personally performed and documented my assessment and findings in the medical record. Josey Gandara Aug 29, 2016 11:33 Tiburcio Kirk MD Aug 29, 2016 23:47
[2016-08-29] MEDS: PANTOPRAZOLE SOD 20 MG DELAYED RELEASE TAB PO SCH (13:14)
[2016-08-29] MEDS: methylPREDNISolone SOD SUCC 125 MG/2 ML VIAL IV SCH ×2 (13:14→21:27)
[2016-08-29] MEDS: LEVOFLOXACIN 750 MG PREMIX INJ 150 ML IV SCH (21:26)
[2016-08-30] VITALS (14 sets, daily range): BP systolic 109–152; BP diastolic 58–85; PULSE 81–111; RESP 24–50; TEMP 97.6–98.5; O2SAT 88–96
--- NOTE | 2016-08-30 04:58 | RADRPT ---
EXAM DATE/TIME: 08/30/2016 04:03 [facility] COMPARISON: CHEST SINGLE AP, August 28, 2016, 10:21. INDICATIONS : Shortness of breath. MEDICAL HISTORY : Carcinoma, breast. SURGICAL HISTORY : [id number] ENCOUNTER: Subsequent ACUITY: 4 - 6 days PAIN SCORE: 0/10 LOCATION: Bilateral chest FINDINGS: Right IJ line is present with tip overlapping the expected region of the SVC. There is haziness to th e lung acosta bilaterally not significantly changed. Heart and mediastinum are unremarkable for techn ique. CONCLUSION: No appreciable change. Papa Vergara MD on August 30, 2016 at 4:56 Board Certified Radiologist. This report was verified electronically.
[2016-08-30] MEDS: INSULIN NovoLIN REGULAR SUPPLEMENTAL SCALE SQ SCH ×4 (05:16→17:25)
[2016-08-30] MEDS: methylPREDNISolone SOD SUCC 125 MG/2 ML VIAL IV SCH ×3 (05:16→20:49)
[2016-08-30] MEDS: CHLORHEXIDINE GLUCONATE 2 % 1 PACK (2 CLOTHS)(taper/protocol) TOPICAL SCH (05:16)
[2016-08-30] MEDS: HEPARIN SODIUM - SQ 10,000 UNITS/ML VIAL SQ SCH ×3 (05:16→20:49)
[2016-08-30 05:59] LABS: AUTOMATED NEUTROPHIL # 4.9 TH/MM3 (1.8-7.7); BASOPHIL % 0.3 % (0.0-2.0); EOSINOPHIL % 0.1 % (0.0-4.0); HEMATOCRIT 32.7 % (35.0-46.0); HEMO FLAGS DIFF FINAL; LYMPH % 5.1 % (9.0-44.0); LYMPHOCYTE # 0.3 TH/MM3 (1.0-4.8); MEAN CELL VOLUME 84.2 FL (80.0-100.0); MEAN CORPUSCULAR HEMOGLOBIN 27.3 PG (27.0-34.0); MEAN CORPUSCULAR HGB CONC 32.5 % (32.0-36.0); NEUT % 93.5 % (16.0-70.0); PLATELET COUNT 350 TH/MM3 (150-450); RED BLOOD COUNT 3.89 MIL/MM3 (4.00-5.30); RED CELL DISTRIBUTION WIDTH 15.5 % (11.6-17.2); WHITE BLOOD COUNT 5.3 TH/MM3 (4.0-11.0)
[2016-08-30 06:19] LABS: BICARBONATE 27.2 MEQ/L (21.0-32.0); POTASSIUM 3.9 MEQ/L (3.5-5.1)
[2016-08-30] MEDS: RESP: ALBUTEROL 2.5 MG/IPRATROPIUM 0.5 MG NEB (SCH) NEB ×3 (07:23→19:34)
--- NOTE | 2016-08-30 09:01 | HHI.CCPN ---
Subjective Remarks/Hospital Course The patient is a 76 year-old female with past medical history of left-sided breast cancer diagnosed in April of 2016, currently on chemotherapy in the form of Taxol and Herceptin. She was admitted to [facility] on August 26 under the hospitalist service after she was sent to the ER by her oncologist, Dr. Kirk, secondary to hypoxemia following chemotherapy. She was noted to have O2 saturation of 75% on room air and upon EMS arrival she was placed on 4 liters oxygen when her saturation improved to 92%. She underwent a VQ scan of the chest which showed low probability for pulmonary embolism and chest x-ray showed mild interstitial prominence suggesting vascular congestion or volume overload. The patient underwent CTA of the chest as well which showed no evidence of pulmonary embolism, however, it showed extensive ground-glass opacities and questionable pulmonary fibrosis per report. The patient reported progressive worsening of shortness of breath for the past one week prior to admission. She denies any chest pain, shortness of breath, cough, or any constitutional symptoms. In addition she denies any exposure to sick contacts. She has been receiving chemotherapy every Monday for the past 7 weeks and is being followed by Dr. Kirk, the patient's oncologist. The patient denies any use of oxygen at home and she is a nonsmoker. She has been requiring increased O2 and was subsequently transferred to ICU. Critical care medicine was consulted for critical care management. The patient is also being followed by Dr. Hammond from pulmonary service, Dr. Louie from cardiology. ABG was performed at 04:27 this morning which showed pH of 7.41, CO2 37, pAO2 59, bicarb 23, sats of 88% on 9 liter simple mask. Chest x-ray from this morning showed increase in bilateral interstitial opacities. The patient has been placed on a non-rebreather and she was given Lasix 40 mg IV push at 10:34 this morning. The patient denies any nausea, vomiting, abdominal pain. In addition she denies any orthopnea, PND or edema of lower extremities. 08/29 No acute events overnight. On High flow oxygen with 70% FIO2. Afebrile. 08/30 Patient remains on high flow oxygen with good sats. CXR this morning no significant changes. Objective Vital Signs Date Time Temp Pulse Resp B/P Pulse Ox O2 Delivery O2 Flow Rate FiO2 08/30/16 07:23 96 High Flow Nasal Cannula 25.00 75 08/30/16 06:00 83 08/30/16 04:00 97.7 28 152/77 Intake and Output 08/29/16 08/29/16 08/30/16 08:00 16:00 00:00 Intake Total 400 ml 170 ml Output Total 350 ml 1600 ml 250 ml Balance -350 ml -1200 ml -80 ml Result Diagram: 08/30/16 0517 08/30/16 0517 Other Results Laboratory Tests Test 08/30/16 05:17 White Blood Count 5.3 TH/MM3 Red Blood Count 3.89 MIL/MM3 Hemoglobin 10.6 GM/DL Hematocrit 32.7 % Mean Corpuscular Volume 84.2 FL Mean Corpuscular Hemoglobin 27.3 PG Mean Corpuscular Hemoglobin 32.5 % Concent Red Cell Distribution Width 15.5 % Platelet Count 350 TH/MM3 Mean Platelet Volume 9.4 FL Neutrophils (%) (Auto) 93.5 % Lymphocytes (%) (Auto) 5.1 % Monocytes (%) (Auto) 1.0 % Eosinophils (%) (Auto) 0.1 % Basophils (%) (Auto) 0.3 % Neutrophils # (Auto) 4.9 TH/MM3 Lymphocytes # (Auto) 0.3 TH/MM3 Monocytes # (Auto) 0.1 TH/MM3 Eosinophils # (Auto) 0.0 TH/MM3 Basophils # (Auto) 0.0 TH/MM3 CBC Comment DIFF FINAL Differential Comment Sodium Level 136 MEQ/L Potassium Level 3.9 MEQ/L Chloride Level 102 MEQ/L Carbon Dioxide Level 27.2 MEQ/L Anion Gap 7 MEQ/L Blood Urea Nitrogen 23 MG/DL Creatinine 0.68 MG/DL Estimat Glomerular Filtration 84 ML/MIN Rate Random Glucose 129 MG/DL Calcium Level 9.5 MG/DL Imaging Last Impressions Chest X-Ray 08/30/16 0700 Signed Impressions: Service Date/Time: Tuesday, August 30, 2016 04:03 - CONCLUSION: No appreciable change. Papa Vergara MD Lung Scan-VQ Nuclear Medicine 08/26/16 0000 Signed Impressions: Service Date/Time: Friday, August 26, 2016 20:26 - CONCLUSION: 1. Low probability for pulmonary embolus. Checo Conner MD Objective Remarks GENERAL: Patient is lying in bed in NAD SKIN: Warm and dry. HEAD: Normocephalic. EYES: No scleral icterus. No injection or drainage. NECK: Supple, trachea midline. No JVD or lymphadenopathy. CARDIOVASCULAR: Regular rate and rhythm without murmurs, gallops, or rubs. RESPIRATORY: Breath sounds equal bilaterally. Coarse BS/crackles GASTROINTESTINAL: Abdomen soft, non-tender, nondistended. MUSCULOSKELETAL: No cyanosis, or edema. BACK: Nontender without obvious deformity. No CVA tenderness. A/P Assessment and Plan 1. Acute hypoxemic respiratory failure. 2. Extensive ground-glass opacities. Ddx: hypersensitivity pneumonitis vs chemotherapy induced pulmonary toxicity/ interstitial pneumonitis versus other causes of valvulitis. 3. Left-sided breast cancer on chemotherapy. 4. Anemia. Plan: Neuro: Monitor neuro status closely and avoid any sedatives. Pulm: wean down oxygen and maintain sats > 92%. Bronchodilators, Symbicort, Solu-Medrol 40 mg IV q.8. Pulm is following- Dr. Hammond V/Q scan and CTA chest : No evidence of PE. CV: Monitor heart rate and blood pressure closely and maintain MAP > 65 mmHg. Echo showed normal LV function with grade 1 diastolic dysfunction. Cardiology is following, Dr. Louie. : Monitor renal function I&O and electrolyte replacement per protocol. GI: on Protonix 40mg IV daily. On PO diet ID: Continue with abx(Levaquin)and monitor for signs of infection( fever and WBC ). Heme: Monitor CBC. Endo: SSI with Accu-Chek q. 6-hour for glycemic control GI/DVT prophylaxis. on Protonix and heparin subcu respectively. Level 3 Bernarda Hansen MD Aug 30, 2016 09:01
[2016-08-30] MEDS: ATORVASTATIN 80 MG TAB PO SCH (09:12)
[2016-08-30] MEDS: PANTOPRAZOLE SOD 20 MG DELAYED RELEASE TAB PO SCH (09:12)
[2016-08-30] MEDS: guaiFENesin E.R. 600 MG TAB PO SCH ×2 (09:12→20:49)
[2016-08-30] MEDS: DOCUSATE SODIUM 50 MG/SENNA 8.6 MG TAB PO SCH ×2 (09:12→20:49)
[2016-08-30] MEDS: DULoxetine HCl DR 60 MG CAP PO SCH (09:12)
[2016-08-30] MEDS: TOLTERODINE TARTRATE 2 MG CAP LA PO SCH (09:12)
[2016-08-30] MEDS: SODIUM CHLORIDE 0.9% FLUSH 10 ML FLUSH IV FLUSH SCH ×2 (09:13→20:50)
--- NOTE | 2016-08-30 11:37 | PD.ONC.PN ---
Subjective Subjective Remarks Afebrile overnight. Patient says, "I feel better today." Oxygen requirements higher, now on 25L high flow O2. CXR unchanged this morning. Objective Data Date Time Temp Pulse Resp B/P Pulse Ox O2 Delivery O2 Flow Rate FiO2 08/30/16 07:23 96 High Flow Nasal Cannula 25.00 75 08/30/16 06:00 83 08/30/16 04:00 97.7 88 28 152/77 94 08/30/16 04:00 88 08/30/16 02:00 85 08/30/16 00:00 97.6 92 30 113/85 95 08/30/16 00:00 92 08/29/16 22:00 94 08/29/16 22:00 104 08/29/16 20:00 104 08/29/16 20:00 97.8 104 34 111/68 91 08/29/16 19:33 97 HHFNC 70 08/29/16 19:00 95 Family Resource Management Professor 70 08/29/16 18:00 113 08/29/16 17:00 103 39 121/59 91 08/29/16 16:00 97.7 93 28 119/65 99 08/29/16 16:00 93 08/29/16 15:00 106 50 125/60 89 08/29/16 14:00 105 08/29/16 14:00 105 51 118/58 86 08/29/16 13:00 108 39 121/58 87 08/29/16 12:00 97.9 109 45 122/56 87 08/29/16 12:00 109 08/30/16 08/30/16 08/30/16 07:00 15:00 23:00 Intake Total 50 ml Output Total 250 ml Balance -200 ml Result Diagram: 08/30/1617 08/30/1617 Laboratory Results Laboratory Tests Test 08/30/16 05:17 White Blood Count 5.3 TH/MM3 Red Blood Count 3.89 MIL/MM3 Hemoglobin 10.6 GM/DL Hematocrit 32.7 % Mean Corpuscular Volume 84.2 FL Mean Corpuscular Hemoglobin 27.3 PG Mean Corpuscular Hemoglobin 32.5 % Concent Red Cell Distribution Width 15.5 % Platelet Count 350 TH/MM3 Mean Platelet Volume 9.4 FL Neutrophils (%) (Auto) 93.5 % Lymphocytes (%) (Auto) 5.1 % Monocytes (%) (Auto) 1.0 % Eosinophils (%) (Auto) 0.1 % Basophils (%) (Auto) 0.3 % Neutrophils # (Auto) 4.9 TH/MM3 Lymphocytes # (Auto) 0.3 TH/MM3 Monocytes # (Auto) 0.1 TH/MM3 Eosinophils # (Auto) 0.0 TH/MM3 Basophils # (Auto) 0.0 TH/MM3 CBC Comment DIFF FINAL Differential Comment Sodium Level 136 MEQ/L Potassium Level 3.9 MEQ/L Chloride Level 102 MEQ/L Carbon Dioxide Level 27.2 MEQ/L Anion Gap 7 MEQ/L Blood Urea Nitrogen 23 MG/DL Creatinine 0.68 MG/DL Estimat Glomerular Filtration 84 ML/MIN Rate Random Glucose 129 MG/DL Calcium Level 9.5 MG/DL Imaging Studies Last 24 hours Impressions Chest X-Ray 08/30/16 0700 Signed Impressions: Service Date/Time: Tuesday, August 30, 2016 04:03 - CONCLUSION: No appreciable change. K. Jason Vergara MD Administered Medications Medications (Trade) Dose Ordered Sig/Aurelia Route PRN Reason Start Time Stop Time Status Last Admin Dose Admin Guaifenesin (Mucinex Er) 600 mg BID PO 08/26/16 21:00 08/30/16 09:12 Sodium Chloride (NS Flush) 2 ml BID IV FLUSH 08/26/16 21:00 08/30/16 09:13 Heparin Sodium (Porcine) (Heparin Inj) 5,000 units Q8H SQ 08/26/16 20:00 08/30/16 05:16 Acetaminophen (Tylenol) 650 mg Q6H PRN PO FEVER/PAIN SCALE 1 TO 2 08/26/16 20:00 08/30/16 01:45 Senna/Docusate Sodium 1 tab 1 tab BID PO 08/26/16 21:00 08/30/16 09:12 Levofloxacin/ Dextrose (Levaquin 750 Mg Premix Inj) 150 ml @ 100 mls/hr Q24H IV 08/27/16 21:00 08/29/16 21:26 Duloxetine HCl (Cymbalta Dr) 60 mg DAILY PO 08/27/16 09:00 08/30/16 09:12 Atorvastatin Calcium (Lipitor) 80 mg DAILY PO 08/27/16 09:00 08/30/16 09:12 Tolterodine Tartrate (Detrol La) 2 mg DAILY PO 08/27/16 09:00 08/30/16 09:12 Insulin Human Regular (NovoLIN R SUPPLEMENTAL SCALE) 1 Q6HR SQ 08/28/16 12:30 08/28/16 18:00 Potassium Phosphate (K-Phos) 2,000 mg Q4H PRN PO For Phosphorus < 2.5 mg/dL 08/28/16 16:30 08/28/16 19:22 Chlorhexidine Gluconate (Chlorhexidine 2% Cloth) 3 pack DAILY@04 TOPICAL 08/29/16 04:00 09/02/16 04:01 08/30/16 05:16 Methylprednisolone Sodium Succinate (SoluMEDROL INJ) 60 mg Q8HR IV 08/29/16 14:00 08/30/16 05:16 Pantoprazole Sodium (Protonix) 20 mg DAILY PO 08/29/16 11:45 08/30/16 09:12 Objective Remarks GENERAL: Pleasant elderly female, sitting up in bed on 25L O2 via high flow NC SKIN: Warm and dry. HEAD: Normocephalic. EYES: No injection or drainage. NECK: Supple, trachea midline. CARDIOVASCULAR: Regular rate and rhythm RESPIRATORY: scattered rhonchi. GASTROINTESTINAL: Abdomen soft, non-tender, nondistended. EXTREMITIES: No cyanosis MUSCULOSKELETAL: Adequate muscle tone. NEUROLOGICAL: awake and alert, normal speech. moving all extremities. Assessment/Plan Problem List: (1) Hypoxia Status: Acute Plan: 08/30: continue steroids and antibiotics. monitor respiratory status. --ECHO = no decrease LVEF --pulmonary toxicity either due to Herceptin or Taxol --dr. Hammond, pulmonology following --currently on Solu-medrol and Levaquin --V/Q scan in the emergency room which was low probability for pulmonary embolism. --chest x-ray showed mild interstitial prominence suggestive of some degree of vascular congestion of volume overload. No infiltrate or effusion was noted. (2) Breast CA Status: Acute Plan: no further chemo. --started on weekly Herceptin and Taxol chemotherapy on July 15. Assessment 76y/o with triple positive left breast cancer admitted with respiratory insufficiency. Attending Statement Denies any shortness of breath At rest Still using high flow oxygen Continue steroids Pulmonary to follow regarding the steroid treatment The exam, history, and the medical decision-making described in the above note were completed with the assistance of the mid-level provider. I reviewed and agree with the findings presented. I attest that I had a sydx-sn-hyco encounter with the patient on the same day, and personally performed and documented my assessment and findings in the medical record. Josey Gandara Aug 30, 2016 11:37 Tiburcio Kirk MD Aug 31, 2016 01:21
--- NOTE | 2016-08-30 19:44 | HHI.PR ---
Subjective Remarks 76 YOWF with Breast ca, Bilat extensive ground glass infilt On High flow 02 75% Looks comfortable Denies sob Objective Vital Signs Vital Signs Date Time Temp Pulse Resp B/P Pulse Ox O2 Delivery O2 Flow Rate FiO2 08/30/16 19:34 94 High Flow Nasal Cannula 25.00 75 08/30/16 18:00 90 08/30/16 16:00 97 08/30/16 16:00 98.3 97 25 109/70 96 08/30/16 14:00 103 08/30/16 12:00 98.4 102 36 119/58 88 08/30/16 12:00 102 08/30/16 10:00 111 08/30/16 08:00 98.5 81 24 133/63 95 08/30/16 08:00 81 08/30/16 07:23 96 High Flow Nasal Cannula 25.00 75 08/30/16 07:00 97 Extracorporeal Circulation Specialist 75 08/30/16 06:00 83 08/30/16 04:00 97.7 88 28 152/77 94 08/30/16 04:00 88 08/30/16 02:00 85 08/30/16 00:00 97.6 92 30 113/85 95 08/30/16 00:00 92 08/29/16 22:00 94 08/29/16 22:00 104 08/29/16 20:00 104 08/29/16 20:00 97.8 104 34 111/68 91 I/O 08/29/16 08/29/16 08/29/16 08/30/16 08/30/16 08/30/16 07:00 15:00 23:00 07:00 15:00 23:00 Intake Total 400 ml 170 ml 50 ml 350 ml Output Total 350 ml 1600 ml 250 ml 250 ml 550 ml Balance -350 ml -1200 ml -80 ml -200 ml -200 ml Intake Oral 400 ml 20 ml 50 ml 350 ml IV Total 150 ml 0 ml Output Urine Total 350 ml 1600 ml 250 ml 250 ml 550 ml # Bowel Movements 0 0 Result Diagram: 08/30/1651608/30/16516 Objective Remarks GENERAL: MBMN WF mild sob SKIN: Warm and dry. HEAD: Normocephalic. EYES: No scleral icterus. No injection or drainage. NECK: Supple, trachea midline. No JVD or lymphadenopathy. CARDIOVASCULAR: Regular rate and rhythm without murmurs, gallops, or rubs. RESPIRATORY: Breath sounds equal bilaterally. No accessory muscle use. GASTROINTESTINAL: Abdomen soft, non-tender, nondistended. MUSCULOSKELETAL: No cyanosis, or edema. BACK: Nontender without obvious deformity. No CVA tenderness. A/P Assessment and Plan Hypoxic RF Bilat extensive ground glass infilt Breast ca Dysnoea PLAN: Cont IV Solumedrol Aerosol nebs high flow 02 GI prophylaxis Babatunde Schultz MD Aug 30, 2016 19:44
[2016-08-30] MEDS: LEVOFLOXACIN 750 MG PREMIX INJ 150 ML IV SCH (20:50)
[2016-08-31] VITALS (19 sets, daily range): BP systolic 100–132; BP diastolic 55–68; PULSE 78–107; RESP 22–42; TEMP 97.8–98.3; O2SAT 93–97
[2016-08-31] MEDS: CHLORHEXIDINE GLUCONATE 2 % 1 PACK (2 CLOTHS)(taper/protocol) TOPICAL SCH (04:00)
[2016-08-31] MEDS: HEPARIN SODIUM - SQ 10,000 UNITS/ML VIAL SQ SCH ×3 (04:46→20:20)
[2016-08-31] MEDS: methylPREDNISolone SOD SUCC 125 MG/2 ML VIAL IV SCH ×3 (04:46→21:51)
[2016-08-31] MEDS: INSULIN NovoLIN REGULAR SUPPLEMENTAL SCALE SQ SCH ×4 (04:47→17:35)
[2016-08-31 06:48] LABS: AUTOMATED NEUTROPHIL # 4.5 TH/MM3 (1.8-7.7); BASOPHIL % 0.1 % (0.0-2.0); HEMATOCRIT 29.1 % (35.0-46.0); HEMO FLAGS DIFF FINAL; LYMPH % 6.6 % (9.0-44.0); LYMPHOCYTE # 0.3 TH/MM3 (1.0-4.8); MEAN CELL VOLUME 82.8 FL (80.0-100.0); MEAN CORPUSCULAR HGB CONC 33.8 % (32.0-36.0); MONO % 4.8 % (0.0-8.0); NEUT % 88.5 % (16.0-70.0); PLATELET COUNT 353 TH/MM3 (150-450); RED BLOOD COUNT 3.51 MIL/MM3 (4.00-5.30); RED CELL DISTRIBUTION WIDTH 15.7 % (11.6-17.2); WHITE BLOOD COUNT 5.1 TH/MM3 (4.0-11.0)
[2016-08-31 07:09] LABS: BICARBONATE 24.5 MEQ/L (21.0-32.0); POTASSIUM 4.1 MEQ/L (3.5-5.1)
[2016-08-31] MEDS: RESP: ALBUTEROL 2.5 MG/IPRATROPIUM 0.5 MG NEB (SCH) NEB ×3 (07:20→20:02)
--- NOTE | 2016-08-31 08:19 | HHI.CCPN ---
Subjective Remarks/Hospital Course The patient is a 76 year-old female with past medical history of left-sided breast cancer diagnosed in April of 2016, currently on chemotherapy in the form of Taxol and Herceptin. She was admitted to [facility] on August 26 under the hospitalist service after she was sent to the ER by her oncologist, Dr. Kirk, secondary to hypoxemia following chemotherapy. She was noted to have O2 saturation of 75% on room air and upon EMS arrival she was placed on 4 liters oxygen when her saturation improved to 92%. She underwent a VQ scan of the chest which showed low probability for pulmonary embolism and chest x-ray showed mild interstitial prominence suggesting vascular congestion or volume overload. The patient underwent CTA of the chest as well which showed no evidence of pulmonary embolism, however, it showed extensive ground-glass opacities and questionable pulmonary fibrosis per report. The patient reported progressive worsening of shortness of breath for the past one week prior to admission. She denies any chest pain, shortness of breath, cough, or any constitutional symptoms. In addition she denies any exposure to sick contacts. She has been receiving chemotherapy every Monday for the past 7 weeks and is being followed by Dr. Kirk, the patient's oncologist. The patient denies any use of oxygen at home and she is a nonsmoker. She has been requiring increased O2 and was subsequently transferred to ICU. Critical care medicine was consulted for critical care management. The patient is also being followed by Dr. Hammond from pulmonary service, Dr. Louie from cardiology. ABG was performed at 04:27 this morning which showed pH of 7.41, CO2 37, pAO2 59, bicarb 23, sats of 88% on 9 liter simple mask. Chest x-ray from this morning showed increase in bilateral interstitial opacities. The patient has been placed on a non-rebreather and she was given Lasix 40 mg IV push at 10:34 this morning. The patient denies any nausea, vomiting, abdominal pain. In addition she denies any orthopnea, PND or edema of lower extremities. 08/29 No acute events overnight. On High flow oxygen with 70% FIO2. Afebrile. 08/30 Patient remains on high flow oxygen with good sats. CXR this morning no significant changes. 08/31 No events overnight. On high flow NC 25L with 75%FIO2, Afebrile. Objective Vital Signs Date Time Temp Pulse Resp B/P Pulse Ox O2 Delivery O2 Flow Rate FiO2 08/31/16 07:21 95 High Flow Nasal Cannula 25.00 75 08/31/16 06:00 79 08/31/16 04:00 98.1 23 132/68 Intake and Output 08/30/16 08/30/16 08/31/16 08:00 16:00 00:00 Intake Total 50 ml 350 ml 400 ml Output Total 250 ml 550 ml 600 ml Balance -200 ml -200 ml -200 ml Result Diagram: 08/31/16 0452 08/31/16 0452 Other Results Laboratory Tests Test 08/31/16 04:52 White Blood Count 5.1 TH/MM3 Red Blood Count 3.51 MIL/MM3 Hemoglobin 9.8 GM/DL Hematocrit 29.1 % Mean Corpuscular Volume 82.8 FL Mean Corpuscular Hemoglobin 28.0 PG Mean Corpuscular Hemoglobin 33.8 % Concent Red Cell Distribution Width 15.7 % Platelet Count 353 TH/MM3 Mean Platelet Volume 9.2 FL Neutrophils (%) (Auto) 88.5 % Lymphocytes (%) (Auto) 6.6 % Monocytes (%) (Auto) 4.8 % Eosinophils (%) (Auto) 0.0 % Basophils (%) (Auto) 0.1 % Neutrophils # (Auto) 4.5 TH/MM3 Lymphocytes # (Auto) 0.3 TH/MM3 Monocytes # (Auto) 0.2 TH/MM3 Eosinophils # (Auto) 0.0 TH/MM3 Basophils # (Auto) 0.0 TH/MM3 CBC Comment DIFF FINAL Differential Comment Sodium Level 134 MEQ/L Potassium Level 4.1 MEQ/L Chloride Level 100 MEQ/L Carbon Dioxide Level 24.5 MEQ/L Anion Gap 10 MEQ/L Blood Urea Nitrogen 21 MG/DL Creatinine 0.54 MG/DL Estimat Glomerular Filtration 109 ML/MIN Rate Random Glucose 124 MG/DL Calcium Level 9.4 MG/DL Imaging Last Impressions Chest X-Ray 08/30/16 0700 Signed Impressions: Service Date/Time: Tuesday, August 30, 2016 04:03 - CONCLUSION: No appreciable change. Papa Vergara MD Lung Scan-V Nuclear Medicine 08/26/16 0000 Signed Impressions: Service Date/Time: Friday, August 26, 2016 20:26 - CONCLUSION: 1. Low probability for pulmonary embolus. Checo Conner MD Objective Remarks GENERAL: Patient is lying in bed in NAD SKIN: Warm and dry. HEAD: Normocephalic. EYES: No scleral icterus. No injection or drainage. NECK: Supple, trachea midline. No JVD or lymphadenopathy. CARDIOVASCULAR: Regular rate and rhythm without murmurs, gallops, or rubs. RESPIRATORY: Breath sounds equal bilaterally. Coarse BS/crackles GASTROINTESTINAL: Abdomen soft, non-tender, nondistended. MUSCULOSKELETAL: No cyanosis, or edema. BACK: Nontender without obvious deformity. No CVA tenderness. A/P Assessment and Plan 1. Acute hypoxemic respiratory failure. 2. Extensive ground-glass opacities. Ddx: hypersensitivity pneumonitis vs chemotherapy induced pulmonary toxicity/ interstitial pneumonitis versus other causes of valvulitis. 3. Left-sided breast cancer on chemotherapy. 4. Anemia. Plan: Neuro: Monitor neuro status closely and avoid any sedatives. Pulm: wean down oxygen and maintain sats > 92%. Bronchodilators,, Solu-Medrol 60 mg IV q.8. NIPPV PRN for resp distress. Pulm is following- Dr. Hammond V/Q scan and CTA chest : No evidence of PE. CXR from 08/30 showed no significant changes repeat CXR in am. CV: Monitor heart rate and blood pressure closely and maintain MAP > 65 mmHg. Echo showed normal LV function with grade 1 diastolic dysfunction. Cardiology is following, Dr. Louie. : Monitor renal function I&O and electrolyte replacement per protocol. GI: on Protonix 40mg IV daily. On PO diet ID: Continue with abx(Levaquin)and monitor for signs of infection( fever and WBC ). Heme: Monitor CBC. Endo: SSI with Accu-Chek q. 6-hour for glycemic control GI/DVT prophylaxis. on Protonix and heparin subcu respectively. Level 3 Bernarda Hansen MD Aug 31, 2016 08:19
[2016-08-31] MEDS: DOCUSATE SODIUM 50 MG/SENNA 8.6 MG TAB PO SCH ×2 (09:43→20:20)
[2016-08-31] MEDS: PANTOPRAZOLE SOD 20 MG DELAYED RELEASE TAB PO SCH (09:43)
[2016-08-31] MEDS: guaiFENesin E.R. 600 MG TAB PO SCH ×2 (09:43→20:20)
[2016-08-31] MEDS: DULoxetine HCl DR 60 MG CAP PO SCH (09:43)
[2016-08-31] MEDS: SODIUM CHLORIDE 0.9% FLUSH 10 ML FLUSH IV FLUSH SCH ×2 (09:44→20:21)
[2016-08-31] MEDS: ATORVASTATIN 80 MG TAB PO SCH (09:58)
[2016-08-31] MEDS: TOLTERODINE TARTRATE 2 MG CAP LA PO SCH (11:27)
--- NOTE | 2016-08-31 14:58 | PD.ONC.PN ---
Subjective Subjective Remarks Afebrile overnight. Remains on high flow oxygen. + cough. Hopeful that her lungs will improve with steroids. Objective Data Date Time Temp Pulse Resp B/P Pulse Ox O2 Delivery O2 Flow Rate FiO2 08/31/16 12:00 97.9 97 27 103/59 95 08/31/16 12:00 97 08/31/16 11:00 101 29 100/56 95 08/31/16 10:00 99 42 93 08/31/16 10:00 99 08/31/16 09:00 84 22 117/64 97 08/31/16 08:00 97.8 98 42 94 08/31/16 08:00 98 08/31/16 07:21 95 High Flow Nasal Cannula 25.00 75 08/31/16 07:00 95 Tetryl Blender Operator 75 08/31/16 06:00 79 08/31/16 04:00 79 08/31/16 04:00 98.1 79 23 132/68 97 08/31/16 02:00 95 08/31/16 00:00 78 08/31/16 00:00 98.2 78 26 103/63 93 08/30/16 22:00 86 08/30/16 20:00 98.0 101 50 117/85 89 08/30/16 20:00 101 08/30/16 19:34 94 High Flow Nasal Cannula 25.00 75 08/30/16 19:00 93 Tetryl Blender Operator 75 08/30/16 18:00 90 08/30/16 16:00 97 08/30/16 16:00 98.3 97 25 109/70 96 08/31/16 08/31/16 08/31/16 07:00 15:00 23:00 Intake Total 50 ml Output Total 250 ml Balance -200 ml Result Diagram: 08/31/16 0452 08/31/16 0452 Laboratory Results Laboratory Tests Test 08/31/16 04:52 White Blood Count 5.1 TH/MM3 Red Blood Count 3.51 MIL/MM3 Hemoglobin 9.8 GM/DL Hematocrit 29.1 % Mean Corpuscular Volume 82.8 FL Mean Corpuscular Hemoglobin 28.0 PG Mean Corpuscular Hemoglobin 33.8 % Concent Red Cell Distribution Width 15.7 % Platelet Count 353 TH/MM3 Mean Platelet Volume 9.2 FL Neutrophils (%) (Auto) 88.5 % Lymphocytes (%) (Auto) 6.6 % Monocytes (%) (Auto) 4.8 % Eosinophils (%) (Auto) 0.0 % Basophils (%) (Auto) 0.1 % Neutrophils # (Auto) 4.5 TH/MM3 Lymphocytes # (Auto) 0.3 TH/MM3 Monocytes # (Auto) 0.2 TH/MM3 Eosinophils # (Auto) 0.0 TH/MM3 Basophils # (Auto) 0.0 TH/MM3 CBC Comment DIFF FINAL Differential Comment Sodium Level 134 MEQ/L Potassium Level 4.1 MEQ/L Chloride Level 100 MEQ/L Carbon Dioxide Level 24.5 MEQ/L Anion Gap 10 MEQ/L Blood Urea Nitrogen 21 MG/DL Creatinine 0.54 MG/DL Estimat Glomerular Filtration 109 ML/MIN Rate Random Glucose 124 MG/DL Calcium Level 9.4 MG/DL Administered Medications Medications (Trade) Dose Ordered Sig/Aurelia Route PRN Reason Start Time Stop Time Status Last Admin Dose Admin Guaifenesin (Mucinex Er) 600 mg BID PO 08/26/16 21:00 08/31/16 09:43 Sodium Chloride (NS Flush) 2 ml BID IV FLUSH 08/26/16 21:00 08/31/16 09:44 Heparin Sodium (Porcine) (Heparin Inj) 5,000 units Q8H SQ 08/26/16 20:00 08/31/16 11:27 Acetaminophen (Tylenol) 650 mg Q6H PRN PO FEVER/PAIN SCALE 1 TO 2 08/26/16 20:00 08/30/16 01:45 Senna/Docusate Sodium 1 tab 1 tab BID PO 08/26/16 21:00 08/31/16 09:43 Levofloxacin/ Dextrose (Levaquin 750 Mg Premix Inj) 150 ml @ 100 mls/hr Q24H IV 08/27/16 21:00 08/30/16 20:50 Duloxetine HCl (Cymbalta Dr) 60 mg DAILY PO 08/27/16 09:00 08/31/16 09:43 Atorvastatin Calcium (Lipitor) 80 mg DAILY PO 08/27/16 09:00 08/31/16 09:58 Tolterodine Tartrate (Detrol La) 2 mg DAILY PO 08/27/16 09:00 08/31/16 11:27 Insulin Human Regular (NovoLIN R SUPPLEMENTAL SCALE) 1 Q6HR SQ 08/28/16 12:30 08/31/16 11:34 Potassium Phosphate (K-Phos) 2,000 mg Q4H PRN PO For Phosphorus < 2.5 mg/dL 08/28/16 16:30 08/28/16 19:22 Chlorhexidine Gluconate (Chlorhexidine 2% Cloth) 3 pack DAILY@04 TOPICAL 08/29/16 04:00 09/02/16 04:01 08/31/16 04:00 Methylprednisolone Sodium Succinate (SoluMEDROL INJ) 60 mg Q8HR IV 08/29/16 14:00 08/31/16 14:14 Pantoprazole Sodium (Protonix) 20 mg DAILY PO 08/29/16 11:45 08/31/16 09:43 Objective Remarks GENERAL: Pleasant elderly female, reading in bed. remains on 25L O2 via NC SKIN: Warm and dry. HEAD: Normocephalic. EYES: No injection or drainage. NECK: Supple, trachea midline. CARDIOVASCULAR: Regular rate and rhythm RESPIRATORY: scattered rhonchi. GASTROINTESTINAL: Abdomen soft, non-tender, nondistended. EXTREMITIES: No cyanosis NEUROLOGICAL: awake and alert, normal speech. moving all extremities. Assessment/Plan Problem List: (1) Hypoxia Status: Acute Plan: 08/31: monitor CBC, continue solu-medrol and abx. --ECHO = no decrease LVEF --pulmonary toxicity either due to Herceptin or Taxol --dr. Hammond, pulmonology following --currently on Solu-medrol and Levaquin --V/Q scan in the emergency room which was low probability for pulmonary embolism. --chest x-ray showed mild interstitial prominence suggestive of some degree of vascular congestion of volume overload. No infiltrate or effusion was noted. (2) Breast CA Status: Acute Plan: no further chemo. --started on weekly Herceptin and Taxol chemotherapy on July 15. Assessment 76y/o with triple positive left breast cancer admitted with respiratory insufficiency. Attending Statement No new complaints Still require high oxygen Chest x-ray reviewed Continue steroid The exam, history, and the medical decision-making described in the above note were completed with the assistance of the mid-level provider. I reviewed and agree with the findings presented. I attest that I had a [id number] encounter with the patient on the same day, and personally performed and documented my assessment and findings in the medical record. Josey Gandara Aug 31, 2016 14:58 Tiburcio Kirk MD Sep 01, 2016 06:25
--- NOTE | 2016-08-31 18:33 | HHI.PR ---
Subjective Remarks 76 YOWF with Breast ca, Bilat extensive ground glass infilt On High flow 02 75% Looks comfortable Denies sob Daughter at BS Still requiring high flow 02 Objective Vital Signs Vital Signs Date Time Temp Pulse Resp B/P Pulse Ox O2 Delivery O2 Flow Rate FiO2 08/31/16 18:00 97 08/31/16 16:00 100 08/31/16 16:00 98.0 100 32 105/58 93 08/31/16 15:00 107 35 96 08/31/16 14:00 101 32 114/59 93 08/31/16 14:00 101 08/31/16 13:00 101 37 104/55 95 08/31/16 12:00 97.9 97 27 103/59 95 08/31/16 12:00 97 08/31/16 11:00 101 29 100/56 95 08/31/16 10:00 99 42 93 08/31/16 10:00 99 08/31/16 09:00 84 22 117/64 97 08/31/16 08:00 97.8 98 42 94 08/31/16 08:00 98 08/31/16 07:21 95 High Flow Nasal Cannula 25.00 75 08/31/16 07:00 95 Special Distribution Clerk 75 08/31/16 06:00 79 08/31/16 04:00 79 08/31/16 04:00 98.1 79 23 132/68 97 08/31/16 02:00 95 08/31/16 00:00 78 08/31/16 00:00 98.2 78 26 103/63 93 08/30/16 22:00 86 08/30/16 20:00 98.0 101 50 117/85 89 08/30/16 20:00 101 08/30/16 19:34 94 High Flow Nasal Cannula 25.00 75 08/30/16 19:00 93 Special Distribution Clerk 75 I/O 08/30/16 08/30/16 08/30/16 08/31/16 08/31/16 08/31/16 07:00 15:00 23:00 07:00 15:00 23:00 Intake Total 50 ml 350 ml 400 ml 50 ml 700 ml Output Total 250 ml 550 ml 600 ml 250 ml 525 ml Balance -200 ml -200 ml -200 ml -200 ml 175 ml Intake Oral 50 ml 350 ml 100 ml 50 ml 700 ml IV Total 0 ml 300 ml 0 ml Output Urine Total 250 ml 550 ml 600 ml 250 ml 525 ml # Bowel Movements 0 0 Result Diagram: 08/31/1645108/31/16451 Objective Remarks GENERAL: MBMN WF mild sob SKIN: Warm and dry. HEAD: Normocephalic. EYES: No scleral icterus. No injection or drainage. NECK: Supple, trachea midline. No JVD or lymphadenopathy. CARDIOVASCULAR: Regular rate and rhythm without murmurs, gallops, or rubs. RESPIRATORY: Breath sounds equal bilaterally. No accessory muscle use. GASTROINTESTINAL: Abdomen soft, non-tender, nondistended. MUSCULOSKELETAL: No cyanosis, or edema. BACK: Nontender without obvious deformity. No CVA tenderness. A/P Assessment and Plan Hypoxic RF Bilat extensive ground glass infilt Breast ca Dysnoea PLAN: Cont IV Solumedrol Aerosol nebs high flow 02 GI prophylaxis Babatunde Schultz MD Aug 31, 2016 18:33
[2016-08-31] MEDS: LEVOFLOXACIN 750 MG PREMIX INJ 150 ML IV SCH (20:20)
[2016-09-01] VITALS (16 sets, daily range): BP systolic 109–133; BP diastolic 57–72; PULSE 67–98; RESP 20–41; TEMP 97.6–98.7; O2SAT 84–94
[2016-09-01] MEDS: CHLORHEXIDINE GLUCONATE 2 % 1 PACK (2 CLOTHS)(taper/protocol) TOPICAL SCH (04:00)
[2016-09-01] MEDS: HEPARIN SODIUM - SQ 10,000 UNITS/ML VIAL SQ SCH ×3 (04:00→20:27)
--- NOTE | 2016-09-01 04:54 | RADRPT ---
EXAM DATE/TIME: 09/01/2016 02:45 [place] COMPARISON: CT PULMONARY ANGIOGRAM, August 26, 2016, 16:50. CHEST SINGLE AP, August 26, 2016, 15:09. CHEST SINGLE A P, August 30, 2016, 4:03. INDICATIONS : Shortness of breath, possible pulmonary disease. MEDICAL HISTORY : Carcinoma, breast. SURGICAL HISTORY : Port placement ENCOUNTER: Subsequent ACUITY: 1 week PAIN SCORE: 0/10 LOCATION: Bilateral chest FINDINGS: Right IJ line is present with tip overlapping the expected region of the SVC. There is prominence of the interstitial markings not significantly changed in part is probably chronic in nature. Mild case of pulmonary edema is difficult to exclude. Heart and mediastinum are unremarkable for technique. CONCLUSION: Prominence of interstitial markings that appears to be chronic, however superimposed pulmonary edema is difficult to exclude. Papa Vergara MD on September 01, 2016 at 4:50 Board Certified Radiologist. This report was verified electronically.
[2016-09-01] MEDS: methylPREDNISolone SOD SUCC 125 MG/2 ML VIAL IV SCH ×3 (05:48→20:27)
[2016-09-01] MEDS: INSULIN NovoLIN REGULAR SUPPLEMENTAL SCALE SQ SCH ×5 (06:00→20:28)
[2016-09-01 06:14] LABS: AUTOMATED NEUTROPHIL # 4.4 TH/MM3 (1.8-7.7); BASOPHIL % 0.1 % (0.0-2.0); HEMATOCRIT 29.8 % (35.0-46.0); LYMPH % 7.4 % (9.0-44.0); LYMPHOCYTE # 0.4 TH/MM3 (1.0-4.8); MEAN CELL VOLUME 83.5 FL (80.0-100.0); MEAN CORPUSCULAR HGB CONC 33.5 % (32.0-36.0); MONO % 6.6 % (0.0-8.0); NEUT % 85.9 % (16.0-70.0); PLATELET COUNT 336 TH/MM3 (150-450); RED BLOOD COUNT 3.57 MIL/MM3 (4.00-5.30); RED CELL DISTRIBUTION WIDTH 15.4 % (11.6-17.2); WHITE BLOOD COUNT 5.1 TH/MM3 (4.0-11.0)
[2016-09-01 06:38] LABS: BICARBONATE 26.4 MEQ/L (21.0-32.0); POTASSIUM 4.3 MEQ/L (3.5-5.1)
[2016-09-01 06:42] LABS: HEMO FLAGS AUTO DIFF
[2016-09-01 07:36] LABS: ACANTHOCYTES OCC (NORMAL); SCAN/DIFF AUTO DIFF CONFIRMED
[2016-09-01] MEDS: RESP: ALBUTEROL 2.5 MG/IPRATROPIUM 0.5 MG NEB (SCH) NEB ×3 (08:39→19:38)
[2016-09-01] MEDS: PANTOPRAZOLE SOD 20 MG DELAYED RELEASE TAB PO SCH (09:03)
[2016-09-01] MEDS: SODIUM CHLORIDE 0.9% FLUSH 10 ML FLUSH IV FLUSH SCH ×2 (09:03→20:28)
[2016-09-01] MEDS: DULoxetine HCl DR 60 MG CAP PO SCH (09:03)
[2016-09-01] MEDS: DOCUSATE SODIUM 50 MG/SENNA 8.6 MG TAB PO SCH ×2 (09:03→20:28)
[2016-09-01] MEDS: TOLTERODINE TARTRATE 2 MG CAP LA PO SCH (09:03)
[2016-09-01] MEDS: guaiFENesin E.R. 600 MG TAB PO SCH ×2 (09:03→20:27)
[2016-09-01] MEDS: ATORVASTATIN 80 MG TAB PO SCH (09:03)
[2016-09-01] MEDS ORDERED: POLYETHYLENE GLYCOL 17 GM PKG PO ONE (13:15)
--- NOTE | 2016-09-01 13:15 | HHI.CCPN ---
Subjective Remarks/Hospital Course The patient is a 76 year-old female with past medical history of left-sided breast cancer diagnosed in April of 2016, currently on chemotherapy in the form of Taxol and Herceptin. She was admitted to [facility] on August 26 under the hospitalist service after she was sent to the ER by her oncologist, Dr. Kirk, secondary to hypoxemia following chemotherapy. She was noted to have O2 saturation of 75% on room air and upon EMS arrival she was placed on 4 liters oxygen when her saturation improved to 92%. She underwent a VQ scan of the chest which showed low probability for pulmonary embolism and chest x-ray showed mild interstitial prominence suggesting vascular congestion or volume overload. The patient underwent CTA of the chest as well which showed no evidence of pulmonary embolism, however, it showed extensive ground-glass opacities and questionable pulmonary fibrosis per report. The patient reported progressive worsening of shortness of breath for the past one week prior to admission. She denies any chest pain, shortness of breath, cough, or any constitutional symptoms. In addition she denies any exposure to sick contacts. She has been receiving chemotherapy every Monday for the past 7 weeks and is being followed by Dr. Kirk, the patient's oncologist. The patient denies any use of oxygen at home and she is a nonsmoker. She has been requiring increased O2 and was subsequently transferred to ICU. Critical care medicine was consulted for critical care management. The patient is also being followed by Dr. Hammond from pulmonary service, Dr. Louie from cardiology. ABG was performed at 04:27 this morning which showed pH of 7.41, CO2 37, pAO2 59, bicarb 23, sats of 88% on 9 liter simple mask. Chest x-ray from this morning showed increase in bilateral interstitial opacities. The patient has been placed on a non-rebreather and she was given Lasix 40 mg IV push at 10:34 this morning. The patient denies any nausea, vomiting, abdominal pain. In addition she denies any orthopnea, PND or edema of lower extremities. 08/29 No acute events overnight. On High flow oxygen with 70% FIO2. Afebrile. 08/30 Patient remains on high flow oxygen with good sats. CXR this morning no significant changes. 08/31 No events overnight. On high flow NC 25L with 75%FIO2, Afebrile. Subjective 09/01: Remains on high flow nasal cannula 30 L 65%. Afebrile. Mentating fine. Denies shortness of breath currently. Objective Vital Signs Date Time Temp Pulse Resp B/P Pulse Ox O2 Delivery O2 Flow Rate FiO2 09/01/16 12:00 96 09/01/16 12:00 97.8 27 109/57 92 09/01/16 08:39 High Flow Nasal Cannula 30.00 60 Intake and Output 08/31/16 08/31/16 09/01/16 08:00 16:00 00:00 Intake Total 50 ml 700 ml 630 ml Output Total 250 ml 525 ml 275 ml Balance -200 ml 175 ml 355 ml Result Diagram: 09/01/16 0425 09/01/16 0425 Imaging Last Impressions Chest X-Ray 09/01/16 0000 Signed Impressions: Service Date/Time: August 02:45 - CONCLUSION: Prominence of interstitial markings that appears to be chronic, however superimposed pulmonary edema is difficult to exclude. Papa Vergara MD Lung Scan-V Nuclear Medicine 08/26/16 0000 Signed Impressions: Service Date/Time: Friday, August 26, 2016 20:26 - CONCLUSION: 1. Low probability for pulmonary embolus. Checo Conner MD Objective Remarks GENERAL: 76-year-old female, sitting up in bed in no acute distress SKIN: Warm and dry. No rash HEAD: Normocephalic. EYES: No scleral icterus. No injection or drainage. NECK: Supple, trachea midline. No JVD or lymphadenopathy. CARDIOVASCULAR: Regular rate and rhythm without murmurs, gallops, or rubs. RESPIRATORY: Coarse crackles appreciated throughout lung acosta anterior- posterior. No wheeze GASTROINTESTINAL: Abdomen soft, non-tender, nondistended. Hypoactive bowel sounds MUSCULOSKELETAL: No significant peripheral edema. BACK: Nontender without obvious deformity. No CVA tenderness. A/P Assessment and Plan Neuro/Psych: Depression Continue Cymbalta 60 mg by mouth daily Continue Alborn for pain management CV: Dyslipidemia Stage I diastolic dysfunction currently on Lipitor 80 mg by mouth at bedtime 2-D echo revealed EF 55%. Stage I diastolic dysfunction. Mild MR. Resp: Acute hypoxemic respiratory failure Extensive ground-glass opacities. Ddx: hypersensitivity pneumonitis vs chemotherapy induced pulmonary toxicity/ interstitial pneumonitis versus other causes of valvulitis Currently on high flow nasal cannula 30 L/65% to maintain saturations greater than or equal to 92% Duo nebs 3 times a day and as needed dyspnea Solu-Medrol 60 mg IV every [address] chest/not PE study 08/29 revealed extensive bilateral groundglass opacification Followed by Dr. Schultz/pulmonology GI: Advance diet as tolerated Protonix for GI prophylaxis Letty-Colace twice a day bowel regimen : Incontinence Saldana catheter for accurate I's nose any critically ill patient Continue Detrol LA 2 mg by mouth daily Endo: Sliding-scale insulin with Accu-Cheks to maintain euglycemia/before meals and at bedtime/low regimen Renal: Monitor urine output daily Accurate I's and O's Heme: Triple positive left breast cancer status post Herceptin scan and Taxol 07/15 weekly chemotherapy Normocytic anemia Monitor CBC daily. Follow trends ID: Currently on Levaquin No cultures to date FEN: Replace electrolytes as clinically indicated Msk: PT/OT evaluate and treat Access - Utilized peripheral IVs. Has right Port-A-Cath if needed Prophylaxis - GI - Protonix - DVT - SCD/heparin subcutaneous Critical Care: The total critical care time was 30 minutes. Time to perform other separately billable procedures was not included in the critical care time. London Littlejohn MD Sep 01, 2016 13:15 1. Acute hypoxemic respiratory failure. 2. . 3. Left-sided breast cancer on chemotherapy. 4. Anemia. Plan: Neuro: Monitor neuro status closely and avoid any sedatives. Pulm: wean down oxygen and maintain sats > 92%. Bronchodilators,, Solu-Medrol 60 mg IV q.8. NIPPV PRN for resp distress. Pulm is following- Dr. Hammond V/Q scan and CTA chest : No evidence of PE. CXR from 08/30 showed no significant changes repeat CXR in am. CV: Monitor heart rate and blood pressure closely and maintain MAP > 65 mmHg. Echo showed normal LV function with grade 1 diastolic dysfunction. Cardiology is following, Dr. Louie. : Monitor renal function I&O and electrolyte replacement per protocol. GI: on Protonix 40mg IV daily. On PO diet ID: Continue with abx(Levaquin)and monitor for signs of infection( fever and WBC ). Heme: Monitor CBC. Endo: SSI with Accu-Chek q. 6-hour for glycemic control GI/DVT prophylaxis. on Protonix and heparin subcu respectively. Level 3 London Littlejohn MD Sep 01, 2016 13:15
--- NOTE | 2016-09-01 14:14 | PD.ONC.PN ---
Subjective Subjective Remarks Afebrile overnight. Remains on high flow O2. Daughter at bedside. Hopeful for a quick recovery. Objective Data Date Time Temp Pulse Resp B/P Pulse Ox O2 Delivery O2 Flow Rate FiO2 09/01/16 12:00 96 09/01/16 12:00 97.8 96 27 109/57 92 09/01/16 10:00 98 09/01/16 08:39 93 High Flow Nasal Cannula 30.00 60 09/01/16 08:00 67 09/01/16 08:00 97.6 72 22 131/72 93 09/01/16 07:00 94 Administrative And Program Specialist 60 09/01/16 06:00 80 09/01/16 05:50 93 High Flow Nasal Cannula 30.00 65 09/01/16 04:35 91 High Flow Nasal Cannula 25.00 65 09/01/16 04:00 85 09/01/16 04:00 98.7 85 29 133/64 84 09/01/16 02:00 79 09/01/16 00:00 85 09/01/16 00:00 98.7 85 20 132/64 93 08/31/16 23:10 94 High Flow Nasal Cannula 20.00 60 08/31/16 22:00 86 08/31/16 20:01 96 High Flow Nasal Cannula 20.00 70 08/31/16 20:00 98.3 93 36 123/58 97 08/31/16 20:00 93 08/31/16 19:00 95 Administrative And Program Specialist 70 08/31/16 18:00 97 08/31/16 16:00 100 08/31/16 16:00 98.0 100 32 105/58 93 08/31/16 15:00 107 35 96 09/01/16 09/01/16 09/01/16 07:00 15:00 23:00 Intake Total 50 ml Output Total 500 ml Balance -450 ml Result Diagram: 09/01/16 0425 09/01/16 0425 Laboratory Results Laboratory Tests Test 09/01/16 04:25 White Blood Count 5.1 TH/MM3 Red Blood Count 3.57 MIL/MM3 Hemoglobin 10.0 GM/DL Hematocrit 29.8 % Mean Corpuscular Volume 83.5 FL Mean Corpuscular Hemoglobin 28.0 PG Mean Corpuscular Hemoglobin 33.5 % Concent Red Cell Distribution Width 15.4 % Platelet Count 336 TH/MM3 Mean Platelet Volume 9.5 FL Neutrophils (%) (Auto) 85.9 % Lymphocytes (%) (Auto) 7.4 % Monocytes (%) (Auto) 6.6 % Eosinophils (%) (Auto) 0.0 % Basophils (%) (Auto) 0.1 % Neutrophils # (Auto) 4.4 TH/MM3 Lymphocytes # (Auto) 0.4 TH/MM3 Monocytes # (Auto) 0.3 TH/MM3 Eosinophils # (Auto) 0.0 TH/MM3 Basophils # (Auto) 0.0 TH/MM3 CBC Comment AUTO DIFF Differential Comment AUTO DIFF CONFIRMED Acanthocytes OCC Sodium Level 133 MEQ/L Potassium Level 4.3 MEQ/L Chloride Level 99 MEQ/L Carbon Dioxide Level 26.4 MEQ/L Anion Gap 8 MEQ/L Blood Urea Nitrogen 19 MG/DL Creatinine 0.63 MG/DL Estimat Glomerular Filtration 92 ML/MIN Rate Random Glucose 125 MG/DL Calcium Level 8.9 MG/DL Imaging Studies Last 24 hours Impressions Chest X-Ray 09/01/16 0000 Signed Impressions: Service Date/Time: August 02:45 - CONCLUSION: Prominence of interstitial markings that appears to be chronic, however superimposed pulmonary edema is difficult to exclude. Papa Vergara MD Administered Medications Medications (Trade) Dose Ordered Sig/Aurelia Route PRN Reason Start Time Stop Time Status Last Admin Dose Admin Guaifenesin (Mucinex Er) 600 mg BID PO 08/26/16 21:00 09/01/16 09:03 Sodium Chloride (NS Flush) 2 ml BID IV FLUSH 08/26/16 21:00 09/01/16 09:03 Heparin Sodium (Porcine) (Heparin Inj) 5,000 units Q8H SQ 08/26/16 20:00 09/01/16 11:58 Acetaminophen (Tylenol) 650 mg Q6H PRN PO FEVER/PAIN SCALE 1 TO 2 08/26/16 20:00 08/30/16 01:45 Senna/Docusate Sodium (Letty-Colace) 1 tab BID PO 08/26/16 21:00 09/01/16 09:03 Lactulose 30 ml 30 ml DAILY PRN PO SEVERE CONSITIPATION 08/26/16 20:00 09/01/16 09:06 Levofloxacin/ Dextrose (Levaquin 750 Mg Premix Inj) 150 ml @ 100 mls/hr Q24H IV 08/27/16 21:00 08/31/16 20:20 Duloxetine HCl (Cymbalta Dr) 60 mg DAILY PO 08/27/16 09:00 09/01/16 09:03 Atorvastatin Calcium (Lipitor) 80 mg DAILY PO 08/27/16 09:00 09/01/16 09:03 Tolterodine Tartrate (Detrol La) 2 mg DAILY PO 08/27/16 09:00 09/01/16 09:03 Potassium Phosphate (K-Phos) 2,000 mg Q4H PRN PO For Phosphorus < 2.5 mg/dL 08/28/16 16:30 08/28/16 19:22 Chlorhexidine Gluconate (Chlorhexidine 2% Cloth) 3 pack DAILY@04 TOPICAL 08/29/16 04:00 09/02/16 04:01 09/01/16 04:00 Methylprednisolone Sodium Succinate (SoluMEDROL INJ) 60 mg Q8HR IV 08/29/16 14:00 09/01/16 11:58 Pantoprazole Sodium (Protonix) 20 mg DAILY PO 08/29/16 11:45 09/01/16 09:03 Objective Remarks GENERAL: Pleasant elderly female, reading in bed. remains on 30L O2 via NC SKIN: Warm and dry. HEAD: Normocephalic. EYES: No injection or drainage. NECK: Supple, trachea midline. CARDIOVASCULAR: Regular rate and rhythm RESPIRATORY: diminished at bases. occasional rhonchi GASTROINTESTINAL: Abdomen soft, non-tender, nondistended. EXTREMITIES: No cyanosis NEUROLOGICAL: aox3. normal speech. moving extremities. Assessment/Plan Problem List: (1) Hypoxia Status: Acute Plan: 09/01: continue steroids and antibiotics. no chemotherapy --ECHO = no decrease LVEF --pulmonary toxicity either due to Herceptin or Taxol --dr. Hammond, pulmonology following --currently on Solu-medrol and Levaquin --V/Q scan in the emergency room which was low probability for pulmonary embolism. --chest x-ray showed mild interstitial prominence suggestive of some degree of vascular congestion of volume overload. No infiltrate or effusion was noted. (2) Breast CA Status: Acute Plan: no further chemo. --started on weekly Herceptin and Taxol chemotherapy on July 15. Assessment 76y/o with triple positive left breast cancer admitted with respiratory insufficiency. Attending Statement Appears comfortable Denies any new complaints Still on high FIO2 But down to 55% Continue steroids Will follow Josey Gandara Sep 01, 2016 14:14 Tiburcio Kirk MD Sep 02, 2016 06:03
--- NOTE | 2016-09-01 19:22 | HHI.PR ---
Subjective Remarks 76 YOWF with Breast ca, Bilat extensive ground glass infilt On High flow 02 55% Looks comfortable Denies sob Feels better Fi02 decreased to 55% Objective Vital Signs Vital Signs Date Time Temp Pulse Resp B/P Pulse Ox O2 Delivery O2 Flow Rate FiO2 09/01/16 18:00 83 09/01/16 16:00 97.8 88 41 119/69 93 09/01/16 16:00 85 09/01/16 14:00 89 09/01/16 12:00 96 09/01/16 12:00 97.8 96 27 109/57 92 09/01/16 10:00 98 09/01/16 08:39 93 High Flow Nasal Cannula 30.00 60 09/01/16 08:00 67 09/01/16 08:00 97.6 72 22 131/72 93 09/01/16 07:00 94 Software Configuration Analyst 60 09/01/16 06:00 80 09/01/16 05:50 93 High Flow Nasal Cannula 30.00 65 09/01/16 04:35 91 High Flow Nasal Cannula 25.00 65 09/01/16 04:00 85 09/01/16 04:00 98.7 85 29 133/64 84 09/01/16 02:00 79 09/01/16 00:00 85 09/01/16 00:00 98.7 85 20 132/64 93 08/31/16 23:10 94 High Flow Nasal Cannula 20.00 60 08/31/16 22:00 86 08/31/16 20:01 96 High Flow Nasal Cannula 20.00 70 08/31/16 20:00 98.3 93 36 123/58 97 08/31/16 20:00 93 I/O 08/31/16 08/31/16 08/31/16 09/01/16 09/01/16 09/01/16 07:00 15:00 23:00 07:00 15:00 23:00 Intake Total 50 ml 700 ml 630 ml 50 ml 600 ml Output Total 250 ml 525 ml 275 ml 500 ml 400 ml Balance -200 ml 175 ml 355 ml -450 ml 200 ml Intake Oral 50 ml 700 ml 480 ml 50 ml 600 ml IV Total 0 ml 150 ml 0 ml Output Urine Total 250 ml 525 ml 275 ml 500 ml 400 ml # Bowel Movements 0 0 0 1 Result Diagram: 09/01/16 0425 09/01/16 0425 Objective Remarks GENERAL: MBMN WF mild sob SKIN: Warm and dry. HEAD: Normocephalic. EYES: No scleral icterus. No injection or drainage. NECK: Supple, trachea midline. No JVD or lymphadenopathy. CARDIOVASCULAR: Regular rate and rhythm without murmurs, gallops, or rubs. RESPIRATORY: Breath sounds equal bilaterally. No accessory muscle use. GASTROINTESTINAL: Abdomen soft, non-tender, nondistended. MUSCULOSKELETAL: No cyanosis, or edema. BACK: Nontender without obvious deformity. No CVA tenderness. A/P Assessment and Plan Hypoxic RF Bilat extensive ground glass infilt Breast ca Dysnoea PLAN: Cont IV Solumedrol Aerosol nebs high flow 02, Fi02 55% GI prophylaxis Babatunde Schultz MD Sep 01, 2016 19:22
[2016-09-01] MEDS: LEVOFLOXACIN 750 MG PREMIX INJ 150 ML IV SCH (20:27)
[2016-09-02] VITALS (16 sets, daily range): BP systolic 116–136; BP diastolic 55–79; PULSE 75–108; RESP 20–29; TEMP 97.7–98.8; O2SAT 87–98
[2016-09-02] MEDS: CHLORHEXIDINE GLUCONATE 2 % 1 PACK (2 CLOTHS)(taper/protocol) TOPICAL SCH (04:00)
[2016-09-02] MEDS: methylPREDNISolone SOD SUCC 125 MG/2 ML VIAL IV SCH ×3 (05:22→21:33)
[2016-09-02] MEDS: HEPARIN SODIUM - SQ 10,000 UNITS/ML VIAL SQ SCH ×3 (05:22→21:32)
[2016-09-02] MEDS: INSULIN NovoLIN REGULAR SUPPLEMENTAL SCALE SQ SCH ×4 (07:00→21:00)
[2016-09-02] MEDS: RESP: ALBUTEROL 2.5 MG/IPRATROPIUM 0.5 MG NEB (SCH) NEB ×3 (08:20→21:46)
[2016-09-02] MEDS: DOCUSATE SODIUM 50 MG/SENNA 8.6 MG TAB PO SCH ×2 (09:00→21:00)
[2016-09-02] MEDS: POLYETHYLENE GLYCOL 17 GM PKG PO SCH (09:00)
--- NOTE | 2016-09-02 09:07 | HHI.CCPN ---
Subjective Remarks/Hospital Course The patient is a 76 year-old female with past medical history of left-sided breast cancer diagnosed in April of 2016, currently on chemotherapy in the form of Taxol and Herceptin. She was admitted to [facility] on August 26 under the hospitalist service after she was sent to the ER by her oncologist, Dr. Kirk, secondary to hypoxemia following chemotherapy. She was noted to have O2 saturation of 75% on room air and upon EMS arrival she was placed on 4 liters oxygen when her saturation improved to 92%. She underwent a VQ scan of the chest which showed low probability for pulmonary embolism and chest x-ray showed mild interstitial prominence suggesting vascular congestion or volume overload. The patient underwent CTA of the chest as well which showed no evidence of pulmonary embolism, however, it showed extensive ground-glass opacities and questionable pulmonary fibrosis per report. The patient reported progressive worsening of shortness of breath for the past one week prior to admission. She denies any chest pain, shortness of breath, cough, or any constitutional symptoms. In addition she denies any exposure to sick contacts. She has been receiving chemotherapy every Monday for the past 7 weeks and is being followed by Dr. Kirk, the patient's oncologist. The patient denies any use of oxygen at home and she is a nonsmoker. She has been requiring increased O2 and was subsequently transferred to ICU. Critical care medicine was consulted for critical care management. The patient is also being followed by Dr. Hammond from pulmonary service, Dr. Louie from cardiology. ABG was performed at 04:27 this morning which showed pH of 7.41, CO2 37, pAO2 59, bicarb 23, sats of 88% on 9 liter simple mask. Chest x-ray from this morning showed increase in bilateral interstitial opacities. The patient has been placed on a non-rebreather and she was given Lasix 40 mg IV push at 10:34 this morning. The patient denies any nausea, vomiting, abdominal pain. In addition she denies any orthopnea, PND or edema of lower extremities. 08/29 No acute events overnight. On High flow oxygen with 70% FIO2. Afebrile. 08/30 Patient remains on high flow oxygen with good sats. CXR this morning no significant changes. 08/31 No events overnight. On high flow NC 25L with 75%FIO2, Afebrile. 09/01: Remains on high flow nasal cannula 30 L 65%. Afebrile. Mentating fine. Denies shortness of breath currently. Subjective 09/02: Afebrile. FiO2 down to 50%. 25 L. We'll attempt to get out of bed to chair daily. Tolerating diet. Positive BM. Objective Vital Signs Date Time Temp Pulse Resp B/P Pulse Ox O2 Delivery O2 Flow Rate FiO2 09/02/16 08:21 89 High Flow Nasal Cannula 25.00 50 09/02/16 08:00 76 09/02/16 04:00 98.8 23 136/73 Intake and Output 09/01/16 09/01/16 09/02/16 08:00 16:00 00:00 Intake Total 50 ml 600 ml 390 ml Output Total 500 ml 400 ml 550 ml Balance -450 ml 200 ml -160 ml Result Diagram: 09/01/16 0425 09/01/16 0425 Imaging Last Impressions Chest X-Ray 09/01/16 0000 Signed Impressions: Service Date/Time: August 02:45 - CONCLUSION: Prominence of interstitial markings that appears to be chronic, however superimposed pulmonary edema is difficult to exclude. Papa Vergara MD Lung Scan-V Nuclear Medicine 08/26/16 0000 Signed Impressions: Service Date/Time: Friday, August 26, 2016 20:26 - CONCLUSION: 1. Low probability for pulmonary embolus. Checo Conner MD Objective Remarks GENERAL: 76-year-old female, sitting up in bed in no acute distress SKIN: Warm and dry. No rash HEAD: Normocephalic. EYES: No scleral icterus. No injection or drainage. NECK: Supple, trachea midline. No JVD or lymphadenopathy. CARDIOVASCULAR: Regular rate and rhythm without murmurs, gallops, or rubs. RESPIRATORY: Coarse crackles appreciated throughout lung acosta anterior- posterior. No wheeze GASTROINTESTINAL: Abdomen soft, non-tender, nondistended. Hypoactive bowel sounds MUSCULOSKELETAL: No significant peripheral edema. BACK: Nontender without obvious deformity. No CVA tenderness. A/P Assessment and Plan Neuro/Psych: Depression Continue Cymbalta 60 mg by mouth daily for depression Continue [place] for pain management CV: Dyslipidemia Stage I diastolic dysfunction currently on Lipitor 80 mg by mouth at bedtime for dyslipidemia 2-D echo revealed EF 55%. Stage I diastolic dysfunction. Mild MR. Resp: Acute hypoxemic respiratory failure Extensive ground-glass opacities. Ddx: hypersensitivity pneumonitis vs chemotherapy induced pulmonary toxicity/ interstitial pneumonitis versus other causes of valvulitis Currently on high flow nasal cannula 25 L/50% to maintain saturations greater than or equal to 92% Duo nebs 3 times a day and as needed dyspnea Solu-Medrol 60 mg IV every [address] chest/not PE study 08/29 revealed extensive bilateral groundglass opacification Followed by Dr. Schultz/pulmonology GI: Advance diet as tolerated/regular Protonix for GI prophylaxis Letty-Colace twice a day bowel regimen with MiraLAX daily : Incontinence [place] catheter for accurate I's nose any critically ill patient Continue Detrol LA 2 mg by mouth daily Endo: Sliding-scale insulin with Accu-Cheks to maintain euglycemia/before meals and at bedtime/low regimen Renal: Monitor urine output daily Accurate I's and O's Heme: Triple positive left breast cancer status post Herceptin scan and Taxol 07/15 weekly chemotherapy Normocytic anemia Leukocytosis Monitor CBC daily. Follow trends ID: Currently on Levaquin No cultures to date FEN: Hyponatremia Hyper-magnesium Replace electrolytes as clinically indicated Msk: PT/OT evaluate and treat Access - Utilized peripheral IVs. Has right Port-A-Cath if needed Prophylaxis - GI - Protonix - DVT - SCD/heparin subcutaneous Critical Care: The total care time was 30 minutes. Time to perform other separately billable procedures was not included in the critical care time. London Littlejohn MD Sep 02, 2016 09:07
[2016-09-02] MEDS: DULoxetine HCl DR 60 MG CAP PO SCH (09:15)
[2016-09-02] MEDS: TOLTERODINE TARTRATE 2 MG CAP LA PO SCH (09:15)
[2016-09-02] MEDS: guaiFENesin E.R. 600 MG TAB PO SCH ×2 (09:15→21:33)
[2016-09-02] MEDS: PANTOPRAZOLE SOD 20 MG DELAYED RELEASE TAB PO SCH (09:15)
[2016-09-02] MEDS: SODIUM CHLORIDE 0.9% FLUSH 10 ML FLUSH IV FLUSH SCH ×2 (09:16→21:32)
[2016-09-02] MEDS: ATORVASTATIN 80 MG TAB PO SCH (09:19)
--- NOTE | 2016-09-02 12:01 | PD.ONC.PN ---
Subjective Subjective Remarks Afebrile overnight. O2 reduced to 25L Overnight. Patient says she feels well. Pulse-ox 88-90%. Objective Data Date Time Temp Pulse Resp B/P Pulse Ox O2 Delivery O2 Flow Rate FiO2 09/02/16 10:00 82 09/02/16 08:21 89 High Flow Nasal Cannula 25.00 50 09/02/16 08:00 76 09/02/16 08:00 97.7 81 24 118/79 91 09/02/16 07:00 97 Spray Painter Helper 50 09/02/16 06:00 77 09/02/16 04:00 98.8 77 23 136/73 93 09/02/16 04:00 77 09/02/16 02:00 75 09/02/16 00:00 84 09/02/16 00:00 98.2 84 29 116/55 89 09/01/16 22:00 84 09/01/16 20:00 96 09/01/16 20:00 98.3 96 28 128/69 90 09/01/16 19:38 94 High Flow Nasal Cannula 25.00 55 09/01/16 19:00 97 Spray Painter Helper 55 09/01/16 18:00 83 09/01/16 16:00 97.8 88 41 119/69 93 09/01/16 16:00 85 09/01/16 14:00 89 09/01/16 12:00 96 09/01/16 12:00 97.8 96 27 109/57 92 09/02/16 09/02/16 09/02/16 07:00 15:00 23:00 Intake Total 50 ml Output Total 550 ml Balance -500 ml Result Diagram: 09/01/16 0425 09/01/16 0425 Administered Medications Medications (Trade) Dose Ordered Sig/Aurelia Route PRN Reason Start Time Stop Time Status Last Admin Dose Admin Guaifenesin (Mucinex Er) 600 mg BID PO 08/26/16 21:00 09/02/16 09:15 Sodium Chloride (NS Flush) 2 ml BID IV FLUSH 08/26/16 21:00 09/02/16 09:16 Heparin Sodium (Porcine) (Heparin Inj) 5,000 units Q8H SQ 08/26/16 20:00 09/02/16 05:22 Acetaminophen (Tylenol) 650 mg Q6H PRN PO FEVER/PAIN SCALE 1 TO 2 08/26/16 20:00 08/30/16 01:45 Senna/Docusate Sodium (Letty-Colace) 1 tab BID PO 08/26/16 21:00 09/01/16 09:03 Lactulose 30 ml 30 ml DAILY PRN PO SEVERE CONSITIPATION 08/26/16 20:00 09/01/16 09:06 Levofloxacin/ Dextrose (Levaquin 750 Mg Premix Inj) 150 ml @ 100 mls/hr Q24H IV 08/27/16 21:00 09/01/16 20:27 Duloxetine HCl (Cymbalta Dr) 60 mg DAILY PO 08/27/16 09:00 09/02/16 09:15 Atorvastatin Calcium (Lipitor) 80 mg DAILY PO 08/27/16 09:00 09/02/16 09:19 Tolterodine Tartrate (Detrol La) 2 mg DAILY PO 08/27/16 09:00 09/02/16 09:15 Potassium Phosphate (K-Phos) 2,000 mg Q4H PRN PO For Phosphorus < 2.5 mg/dL 08/28/16 16:30 08/28/16 19:22 Methylprednisolone Sodium Succinate (SoluMEDROL INJ) 60 mg Q8HR IV 08/29/16 14:00 09/02/16 05:22 Pantoprazole Sodium (Protonix) 20 mg DAILY PO 08/29/16 11:45 09/02/16 09:15 Objective Remarks GENERAL: Pleasant female, sitting up in bed in nad. SKIN: Warm and dry. HEAD: Normocephalic. EYES: No injection or drainage. NECK: Supple, trachea midline. CARDIOVASCULAR: Regular rate and rhythm RESPIRATORY: scattered rhonchi. On high flow oxygen GASTROINTESTINAL: Abdomen soft, non-tender, nondistended. EXTREMITIES: No cyanosis NEUROLOGICAL: awake and alert, normal speech. Assessment/Plan Problem List: (1) Hypoxia Status: Acute Plan: 09/02: continue steroids per pulmonology. hopeful for improvement in lung function. monitor pulse-ox --ECHO = no decrease LVEF --pulmonary toxicity either due to Herceptin or Taxol --dr. Hammond, pulmonology following --currently on Solu-medrol and Levaquin --V/Q scan in the emergency room which was low probability for pulmonary embolism. --chest x-ray showed mild interstitial prominence suggestive of some degree of vascular congestion of volume overload. No infiltrate or effusion was noted. (2) Breast CA Status: Acute Plan: no further chemo. --started on weekly Herceptin and Taxol chemotherapy on July 15. Assessment 76y/o with triple positive left breast cancer admitted with respiratory insufficiency. Attending Statement no new c/o FIO2 down to 50% continue steroid. The exam, history, and the medical decision-making described in the above note were completed with the assistance of the mid-level provider. I reviewed and agree with the findings presented. I attest that I had a [id number] encounter with the patient on the same day, and personally performed and documented my assessment and findings in the medical record. Josey Gandara Sep 02, 2016 12:01 Tiburcio Kirk MD Sep 02, 2016 13:54
--- NOTE | 2016-09-02 18:02 | HHI.PR ---
Subjective Remarks 76 YOWF with Breast ca, Bilat extensive ground glass infilt On High flow 02 50% Looks comfortable Denies sob Feels better Fi02 decreased to 50% Up in chair Family at . Objective Vital Signs Vital Signs Date Time Temp Pulse Resp B/P Pulse Ox O2 Delivery O2 Flow Rate FiO2 09/02/16 17:02 98 Nasal Cannula 4.50 09/02/16 16:00 106 09/02/16 16:00 98.1 108 20 116/60 93 09/02/16 14:00 85 09/02/16 12:59 91 Venturi Mask 50 09/02/16 12:00 87 09/02/16 12:00 97.8 83 25 117/68 87 09/02/16 10:00 82 09/02/16 08:21 89 High Flow Nasal Cannula 25.00 50 09/02/16 08:00 76 09/02/16 08:00 97.7 81 24 118/79 91 09/02/16 07:00 97 Marketing Summer Intern 50 09/02/16 06:00 77 09/02/16 04:00 98.8 77 23 136/73 93 09/02/16 04:00 77 09/02/16 02:00 75 09/02/16 00:00 84 09/02/16 00:00 98.2 84 29 116/55 89 09/01/16 22:00 84 09/01/16 20:00 96 09/01/16 20:00 98.3 96 28 128/69 90 09/01/16 19:38 94 High Flow Nasal Cannula 25.00 55 09/01/16 19:00 97 Marketing Summer Intern 55 I/O 09/01/16 09/01/16 09/01/16 09/02/16 09/02/16 09/02/16 07:00 15:00 23:00 07:00 15:00 23:00 Intake Total 50 ml 600 ml 390 ml 50 ml 600 ml Output Total 500 ml 400 ml 550 ml 550 ml 400 ml Balance -450 ml 200 ml -160 ml -500 ml 200 ml Intake Oral 50 ml 600 ml 240 ml 50 ml 600 ml IV Total 0 ml 150 ml Output Urine Total 500 ml 400 ml 550 ml 550 ml 400 ml # Bowel Movements 0 1 1 3 Result Diagram: 09/01/16 0425 09/01/16424 Objective Remarks GENERAL: MBMN WF mild sob SKIN: Warm and dry. HEAD: Normocephalic. EYES: No scleral icterus. No injection or drainage. NECK: Supple, trachea midline. No JVD or lymphadenopathy. CARDIOVASCULAR: Regular rate and rhythm without murmurs, gallops, or rubs. RESPIRATORY: Breath sounds equal bilaterally. No accessory muscle use. GASTROINTESTINAL: Abdomen soft, non-tender, nondistended. MUSCULOSKELETAL: No cyanosis, or edema. BACK: Nontender without obvious deformity. No CVA tenderness. A/P Assessment and Plan Hypoxic RF Bilat extensive ground glass infilt Breast ca Dysnoea PLAN: Cont IV Solumedrol Aerosol nebs high flow 02, Fi02 55% GI prophylaxis DW pt and family Babatunde Schultz MD Sep 02, 2016 18:02
[2016-09-02] MEDS: LEVOFLOXACIN 750 MG PREMIX INJ 150 ML IV SCH (21:32)
[2016-09-03] VITALS (14 sets, daily range): BP systolic 127–148; BP diastolic 61–75; PULSE 85–102; RESP 19–36; TEMP 97.4–98.6; O2SAT 85–96
[2016-09-03 04:42] LABS: HEMATOCRIT 32.7 % (35.0-46.0); MEAN CELL VOLUME 84.5 FL (80.0-100.0); MEAN CORPUSCULAR HGB CONC 31.9 % (32.0-36.0); PLATELET COUNT 327 TH/MM3 (150-450); RED BLOOD COUNT 3.87 MIL/MM3 (4.00-5.30); RED CELL DISTRIBUTION WIDTH 15.4 % (11.6-17.2); REVIEW FLAG FINAL; WHITE BLOOD COUNT 13.9 TH/MM3 (4.0-11.0)
[2016-09-03] MEDS: HEPARIN SODIUM - SQ 10,000 UNITS/ML VIAL SQ SCH ×3 (04:48→21:54)
[2016-09-03] MEDS: INSULIN NovoLIN REGULAR SUPPLEMENTAL SCALE SQ SCH ×4 (04:49→21:00)
[2016-09-03] MEDS: methylPREDNISolone SOD SUCC 125 MG/2 ML VIAL IV SCH ×3 (04:49→21:56)
[2016-09-03 05:07] LABS: BICARBONATE 25.5 MEQ/L (21.0-32.0); POTASSIUM 3.6 MEQ/L (3.5-5.1)
--- NOTE | 2016-09-03 05:32 | RADRPT ---
EXAM DATE/TIME: 09/03/2016 04:04 [facility] COMPARISON: CHEST SINGLE AP, September 01, 2016, 2:45. INDICATIONS : Shortness of breath, possible pulmonary disease. MEDICAL HISTORY : Carcinoma, breast. SURGICAL HISTORY : Port placement. ENCOUNTER: Subsequent ACUITY: 1 week PAIN SCORE: 0/10 LOCATION: Bilateral chest FINDINGS: [id number] tip is in superior vena cava. Interstitial changes remain in the lungs with basilar and peripheral predominance characteristic of pulmonary fibrosis, probably idiopathic pulmonary fibrosis . No new consolidation or effusion. CONCLUSION: 1. No new consolidation or effusion. Interstitial lung disease most characteristic of pulmonary fibro sis. [id number] in superior vena cava. Checo Conner MD on September 03, 2016 at 5:28 Board Certified Radiologist. This report was verified electronically.
[2016-09-03] MEDS: RESP: ALBUTEROL 2.5 MG/IPRATROPIUM 0.5 MG NEB (SCH) NEB ×3 (08:04→20:53)
[2016-09-03] MEDS: guaiFENesin E.R. 600 MG TAB PO SCH ×2 (08:37→21:55)
[2016-09-03] MEDS: ATORVASTATIN 80 MG TAB PO SCH (08:37)
[2016-09-03] MEDS: DOCUSATE SODIUM 50 MG/SENNA 8.6 MG TAB PO SCH ×2 (08:38→21:55)
[2016-09-03] MEDS: POLYETHYLENE GLYCOL 17 GM PKG PO SCH (08:38)
[2016-09-03] MEDS: DULoxetine HCl DR 60 MG CAP PO SCH (08:38)
[2016-09-03] MEDS: TOLTERODINE TARTRATE 2 MG CAP LA PO SCH (08:38)
[2016-09-03] MEDS: PANTOPRAZOLE SOD 20 MG DELAYED RELEASE TAB PO SCH (08:38)
[2016-09-03] MEDS: SODIUM CHLORIDE 0.9% FLUSH 10 ML FLUSH IV FLUSH SCH ×2 (08:38→21:55)
--- NOTE | 2016-09-03 12:56 | HHI.CCPN ---
Subjective Remarks/Hospital Course The patient is a 76 year-old female with past medical history of left-sided breast cancer diagnosed in April of 2016, currently on chemotherapy in the form of Taxol and Herceptin. She was admitted to [facility] on August 26 under the hospitalist service after she was sent to the ER by her oncologist, Dr. Kirk, secondary to hypoxemia following chemotherapy. She was noted to have O2 saturation of 75% on room air and upon EMS arrival she was placed on 4 liters oxygen when her saturation improved to 92%. She underwent a VQ scan of the chest which showed low probability for pulmonary embolism and chest x-ray showed mild interstitial prominence suggesting vascular congestion or volume overload. The patient underwent CTA of the chest as well which showed no evidence of pulmonary embolism, however, it showed extensive ground-glass opacities and questionable pulmonary fibrosis per report. The patient reported progressive worsening of shortness of breath for the past one week prior to admission. She denies any chest pain, shortness of breath, cough, or any constitutional symptoms. In addition she denies any exposure to sick contacts. She has been receiving chemotherapy every Monday for the past 7 weeks and is being followed by Dr. Kirk, the patient's oncologist. The patient denies any use of oxygen at home and she is a nonsmoker. She has been requiring increased O2 and was subsequently transferred to ICU. Critical care medicine was consulted for critical care management. The patient is also being followed by Dr. Hammond from pulmonary service, Dr. Louie from cardiology. ABG was performed at 04:27 this morning which showed pH of 7.41, CO2 37, pAO2 59, bicarb 23, sats of 88% on 9 liter simple mask. Chest x-ray from this morning showed increase in bilateral interstitial opacities. The patient has been placed on a non-rebreather and she was given Lasix 40 mg IV push at 10:34 this morning. The patient denies any nausea, vomiting, abdominal pain. In addition she denies any orthopnea, PND or edema of lower extremities. 08/29 No acute events overnight. On High flow oxygen with 70% FIO2. Afebrile. 08/30 Patient remains on high flow oxygen with good sats. CXR this morning no significant changes. 08/31 No events overnight. On high flow NC 25L with 75%FIO2, Afebrile. 09/01: Remains on high flow nasal cannula 30 L 65%. Afebrile. Mentating fine. Denies shortness of breath currently. 09/02: Afebrile. FiO2 down to 50%. 25 L. We'll attempt to get out of bed to chair daily. Tolerating diet. Positive BM. Subjective 09/03: Down to 4 L nasal cannula. Appears much improved. Bit itchy yesterday tolerating well. Tolerating diet. Objective Vital Signs Date Time Temp Pulse Resp B/P Pulse Ox O2 Delivery O2 Flow Rate FiO2 09/03/16 10:00 85 09/03/16 08:04 95 Nasal Cannula 4.00 09/03/16 08:00 97.6 19 136/75 09/02/16 12:59 50 Intake and Output 09/02/16 09/02/16 09/03/16 08:00 16:00 00:00 Intake Total 50 ml 600 ml 3 ml Output Total 550 ml 400 ml 300 ml Balance -500 ml 200 ml -297 ml Result Diagram: 09/03/16 0337 09/03/16 0337 Imaging Last Impressions Chest X-Ray 09/03/16 0600 Signed Impressions: Service Date/Time: Saturday, September 03, 2016 04:04 - CONCLUSION: 1. No new consolidation or effusion. Interstitial lung disease most characteristic of pulmonary fibrosis. [id number]-Prke in superior vena cava. Checo Conner MD Lung Scan-V Nuclear Medicine 08/26/16 0000 Signed Impressions: Service Date/Time: Friday, August 26, 2016 20:26 - CONCLUSION: 1. Low probability for pulmonary embolus. Checo Conner MD Objective Remarks GENERAL: 76-year-old female, sitting up in bed in no acute distress on nasal cannula SKIN: Warm and dry. No rash HEAD: Normocephalic. EYES: No scleral icterus. No injection or drainage. NECK: Supple, trachea midline. No JVD or lymphadenopathy. CARDIOVASCULAR: Regular rate and rhythm without murmurs, gallops, or rubs. RESPIRATORY: Coarse crackles appreciated throughout lung acosta anterior- posterior. No wheeze GASTROINTESTINAL: Abdomen soft, non-tender, nondistended. Hypoactive bowel sounds MUSCULOSKELETAL: No significant peripheral edema. BACK: Nontender without obvious deformity. No CVA tenderness. A/P Assessment and Plan Neuro/Psych: Depression Continue Cymbalta 60 mg by mouth daily for depression Continue [place] for pain management CV: Dyslipidemia Stage I diastolic dysfunction currently on Lipitor 80 mg by mouth at bedtime for dyslipidemia 2-D echo revealed EF 55%. Stage I diastolic dysfunction. Mild MR. Resp: Acute hypoxemic respiratory failure Extensive ground-glass opacities. Ddx: hypersensitivity pneumonitis vs chemotherapy induced pulmonary toxicity/ interstitial pneumonitis versus other causes of valvulitis Currently on high flow nasal cannula 25 L/50% to maintain saturations greater than or equal to 92% Duo nebs 3 times a day and as needed dyspnea Solu-Medrol 60 mg IV every [address] chest/not PE study 08/29 revealed extensive bilateral groundglass opacification Followed by Dr. Schultz/pulmonology GI: Advance diet as tolerated/regular Protonix for GI prophylaxis Letty-Colace twice a day bowel regimen with MiraLAX daily : Incontinence Saldana catheter for accurate I's nose any critically ill patient Continue Detrol LA 2 mg by mouth daily Endo: Sliding-scale insulin with Accu-Cheks to maintain euglycemia/before meals and at bedtime/low regimen Renal: Monitor urine output daily Accurate I's and O's Heme: Triple positive left breast cancer status post Herceptin scan and Taxol 07/15 weekly chemotherapy Normocytic anemia Leukocytosis Monitor CBC daily. Follow trends ID: Currently on Levaquin No cultures to date FEN: Hyper-magnesium Replace electrolytes as clinically indicated Msk: PT/OT evaluate and treat Access - Utilized peripheral IVs. Has right Port-A-Cath if needed Prophylaxis - GI - Protonix - DVT - SCD/heparin subcutaneous Critical Care: The total care time was 30 minutes. Time to perform other separately billable procedures was not included in the critical care time. Patient is stable from a critical care medicine standpoint. Assign care to hospitalist in a.m. 09/04. London Littlejohn MD Sep 03, 2016 12:55
[2016-09-03] MEDS ORDERED: POTASSIUM CHLORIDE 20 MEQ CONTROLLED RELEASE TAB PO ONE (13:00)
--- NOTE | 2016-09-03 13:49 | PD.ONC.PN ---
Subjective Subjective Remarks Afebrile overnight. Per RN when she got up to the chair from the bed her O2 sats dropped to 78% Pt reports that she feels much better after getting a breathing treatment Objective Data Date Time Temp Pulse Resp B/P Pulse Ox O2 Delivery O2 Flow Rate FiO2 09/03/16 10:00 85 09/03/16 08:04 95 Nasal Cannula 4.00 09/03/16 08:00 97.6 85 19 136/75 85 09/03/16 08:00 85 09/03/16 06:00 88 09/03/16 04:00 100 09/03/16 04:00 97.6 100 22 131/67 89 09/03/16 02:00 98 09/03/16 00:00 98.6 102 21 127/61 96 09/03/16 00:00 102 09/02/16 22:00 104 09/02/16 21:46 91 Nasal Cannula 6.00 09/02/16 20:00 82 09/02/16 20:00 97.8 82 21 116/58 98 09/02/16 19:00 90 Nasal Cannula 5.00 09/02/16 18:00 100 09/02/16 17:02 98 Nasal Cannula 4.50 09/02/16 16:00 106 09/02/16 16:00 98.1 108 20 116/60 93 09/02/16 14:00 85 09/03/16 09/03/16 09/03/16 07:00 15:00 23:00 Intake Total 270 ml Output Total 225 ml Balance 45 ml Result Diagram: 09/03/16 0337 09/03/16 0337 Laboratory Results Laboratory Tests Test 09/03/16 03:37 White Blood Count 13.9 TH/MM3 Red Blood Count 3.87 MIL/MM3 Hemoglobin 10.4 GM/DL Hematocrit 32.7 % Mean Corpuscular Volume 84.5 FL Mean Corpuscular Hemoglobin 27.0 PG Mean Corpuscular Hemoglobin 31.9 % Concent Red Cell Distribution Width 15.4 % Platelet Count 327 TH/MM3 Mean Platelet Volume 9.7 FL Sodium Level 136 MEQ/L Potassium Level 3.6 MEQ/L Chloride Level 101 MEQ/L Carbon Dioxide Level 25.5 MEQ/L Anion Gap 10 MEQ/L Blood Urea Nitrogen 18 MG/DL Creatinine 0.65 MG/DL Estimat Glomerular Filtration 88 ML/MIN Rate Random Glucose 149 MG/DL Calcium Level 8.7 MG/DL Imaging Studies Last 24 hours Impressions Chest X-Ray 09/03/16 0600 Signed Impressions: Service Date/Time: Saturday, September 03, 2016 04:04 - CONCLUSION: 1. No new consolidation or effusion. Interstitial lung disease most characteristic of pulmonary fibrosis. [id number] in superior vena cava. Checo Conner MD Administered Medications Medications (Trade) Dose Ordered Sig/Aurelia Route PRN Reason Start Time Stop Time Status Last Admin Dose Admin Guaifenesin (Mucinex Er) 600 mg BID PO 08/26/16 21:00 09/03/16 08:37 Sodium Chloride (NS Flush) 2 ml BID IV FLUSH 08/26/16 21:00 09/03/16 08:38 Heparin Sodium (Porcine) (Heparin Inj) 5,000 units Q8H SQ 08/26/16 20:00 09/03/16 04:48 Acetaminophen (Tylenol) 650 mg Q6H PRN PO FEVER/PAIN SCALE 1 TO 2 08/26/16 20:00 08/30/16 01:45 Senna/Docusate Sodium (Letty-Colace) 1 tab BID PO 08/26/16 21:00 09/01/16 09:03 Lactulose 30 ml 30 ml DAILY PRN PO SEVERE CONSITIPATION 08/26/16 20:00 09/01/16 09:06 Levofloxacin/ Dextrose (Levaquin 750 Mg Premix Inj) 150 ml @ 100 mls/hr Q24H IV 08/27/16 21:00 09/02/16 21:32 Duloxetine HCl (Cymbalta Dr) 60 mg DAILY PO 08/27/16 09:00 09/03/16 08:38 Atorvastatin Calcium (Lipitor) 80 mg DAILY PO 08/27/16 09:00 09/03/16 08:37 Tolterodine Tartrate (Detrol La) 2 mg DAILY PO 08/27/16 09:00 09/03/16 08:38 Potassium Phosphate (K-Phos) 2,000 mg Q4H PRN PO For Phosphorus < 2.5 mg/dL 08/28/16 16:30 08/28/16 19:22 Methylprednisolone Sodium Succinate (SoluMEDROL INJ) 60 mg Q8HR IV 08/29/16 14:00 09/03/16 04:49 Pantoprazole Sodium (Protonix) 20 mg DAILY PO 08/29/16 11:45 09/03/16 08:38 Objective Remarks GENERAL: Older female, sitting up in chair at bedside eating lunch SKIN: Warm and dry. HEAD: Normocephalic. EYES: No injection or drainage. NECK: Supple, trachea midline. CARDIOVASCULAR: +S1/S2. RESPIRATORY: Lung sounds decreased throughout, mild bibasilar crackles. On 4 L nasal cannula. GASTROINTESTINAL: Abdomen soft, non-tender, nondistended. EXTREMITIES: No cyanosis. No edema. NEUROLOGICAL: Awake and alert, normal speech. Assessment/Plan Assessment 76y/o with triple positive left breast cancer admitted with respiratory insufficiency. Plan 1. Continue solumedrol and Levaquin per pulmonary. 2. CXR is stable today. 3. Continue supportive care with breathing treatments. 4. We are not planning on any more chemotherapy at this time. Attending Statement The exam, history, and the medical decision-making described in the above note were completed with the assistance of the mid-level provider. I reviewed and agree with the findings presented. I attest that I had a [id number] encounter with the patient on the same day, and personally performed and documented my assessment and findings in the medical record. still sob and with rales at bases. should get better with steroids. will check BNP although recent echo adequate. surprised recovery so slow. Giana Smiley Sep 03, 2016 13:49 Dominic Grewal MD Sep 03, 2016 16:22
[2016-09-03] MEDS: LEVOFLOXACIN 750 MG PREMIX INJ 150 ML IV SCH (21:55)
[2016-09-03] MEDS: ONDANSETRON HCL 4 MG/2 ML VIAL IVP PRN (23:02)
[2016-09-04] VITALS (14 sets, daily range): BP systolic 118–146; BP diastolic 60–95; PULSE 81–110; RESP 18–33; TEMP 97.8–99.4; O2SAT 82–98
--- NOTE | 2016-09-04 04:47 | RADRPT ---
EXAM DATE/TIME: 09/04/2016 02:58 [place] COMPARISON: CHEST SINGLE AP, September 03, 2016, 4:04. INDICATIONS : Evaluate for pnuemonia. MEDICAL HISTORY : Carcinoma, breast. SURGICAL HISTORY : Port placement ENCOUNTER: Subsequent ACUITY: 1 week PAIN SCORE: 7/10 LOCATION: Bilateral chest FINDINGS: Single AP view of the chest. Right-sided [id number]-Mwhu again seen. Bilateral interstitial pulmonary o pacity unchanged. No evidence of pleural effusion or pneumothorax. CONCLUSION: No significant interval change. Fito Agarwal MD on September 04, 2016 at 4:44 Board Certified Radiologist. This report was verified electronically.
[2016-09-04] MEDS: HEPARIN SODIUM - SQ 10,000 UNITS/ML VIAL SQ SCH ×3 (05:24→20:27)
[2016-09-04] MEDS: methylPREDNISolone SOD SUCC 125 MG/2 ML VIAL IV SCH ×3 (05:24→20:29)
[2016-09-04 05:42] LABS: HEMATOCRIT 31.9 % (35.0-46.0); MEAN CELL VOLUME 84.2 FL (80.0-100.0); MEAN CORPUSCULAR HEMOGLOBIN 27.8 PG (27.0-34.0); PLATELET COUNT 338 TH/MM3 (150-450); RED BLOOD COUNT 3.79 MIL/MM3 (4.00-5.30); RED CELL DISTRIBUTION WIDTH 15.9 % (11.6-17.2); REVIEW FLAG FINAL; WHITE BLOOD COUNT 16.4 TH/MM3 (4.0-11.0)
[2016-09-04 06:06] LABS: BICARBONATE 24.7 MEQ/L (21.0-32.0); POTASSIUM 4.2 MEQ/L (3.5-5.1)
[2016-09-04] MEDS: INSULIN NovoLIN REGULAR SUPPLEMENTAL SCALE SQ SCH ×4 (06:52→20:28)
[2016-09-04] MEDS: DOCUSATE SODIUM 50 MG/SENNA 8.6 MG TAB PO SCH ×2 (09:00→20:30)
[2016-09-04] MEDS: POLYETHYLENE GLYCOL 17 GM PKG PO SCH (09:00)
[2016-09-04] MEDS: RESP: ALBUTEROL 2.5 MG/IPRATROPIUM 0.5 MG NEB (SCH) NEB ×2 (09:12→21:30)
[2016-09-04] MEDS: guaiFENesin E.R. 600 MG TAB PO SCH ×2 (09:34→20:28)
[2016-09-04] MEDS: PANTOPRAZOLE SOD 20 MG DELAYED RELEASE TAB PO SCH (09:34)
[2016-09-04] MEDS: ATORVASTATIN 80 MG TAB PO SCH (09:34)
[2016-09-04] MEDS: DULoxetine HCl DR 60 MG CAP PO SCH (09:34)
[2016-09-04] MEDS: ONDANSETRON HCL 4 MG/2 ML VIAL IVP PRN ×2 (09:34→17:51)
[2016-09-04] MEDS: TOLTERODINE TARTRATE 2 MG CAP LA PO SCH (09:35)
[2016-09-04] MEDS: SODIUM CHLORIDE 0.9% FLUSH 10 ML FLUSH IV FLUSH SCH ×2 (09:35→20:28)
--- NOTE | 2016-09-04 10:27 | HHI.PR ---
Subjective Remarks no complains of pain sitting on the chair- feels comfortable on NC- less dyspnea on transfers Objective Vitals Vital Signs Date Time Temp Pulse Resp B/P Pulse Ox O2 Delivery O2 Flow Rate FiO2 09/04/16 10:00 110 09/04/16 09:14 97 Nasal Cannula 3.00 09/04/16 08:00 83 09/04/16 08:00 82 Nasal Cannula 3.00 09/04/16 08:00 99.4 81 20 146/89 82 09/04/16 06:00 88 09/04/16 04:00 84 09/04/16 04:00 98.1 84 20 136/65 95 09/04/16 04:00 91 Nasal Cannula 4.00 09/04/16 02:00 85 09/04/16 00:00 97.8 92 18 145/72 98 09/04/16 00:00 91 Nasal Cannula 4.00 09/04/16 00:00 92 09/03/16 22:00 100 09/03/16 20:55 96 Nasal Cannula 3.00 09/03/16 20:00 91 Nasal Cannula 4.00 09/03/16 20:00 98.2 93 24 144/75 91 09/03/16 20:00 93 09/03/16 18:00 94 09/03/16 16:00 92 Nasal Cannula 4.00 09/03/16 16:00 97.4 96 26 148/70 89 09/03/16 16:00 96 09/03/16 14:00 100 09/03/16 12:00 92 Nasal Cannula 4.00 09/03/16 12:00 100 09/03/16 12:00 97.7 100 36 147/69 92 I/O 09/03/16 09/03/16 09/03/16 09/04/16 09/04/16 09/04/16 07:00 15:00 23:00 07:00 15:00 23:00 Intake Total 270 ml 480 ml 220 ml 205 ml Output Total 225 ml 750 ml 350 ml 250 ml Balance 45 ml -270 ml -130 ml -45 ml Intake Oral 120 ml 480 ml 120 ml 80 ml IV Total 150 ml 100 ml 125 ml Output Urine Total 225 ml 750 ml 350 ml 250 ml # Bowel Movements 0 1 0 0 Result Diagram: 09/04/16 05009/04/16 0504 Imaging Last Impressions Chest X-Ray 09/04/16 0600 Signed Impressions: Service Date/Time: Sunday, September 04, 2016 02:58 - CONCLUSION: No significant interval change. Fito Agarwal MD Lung Scan-VQ Nuclear Medicine 08/26/16 0000 Signed Impressions: Service Date/Time: Friday, August 26, 2016 20:26 - CONCLUSION: 1. Low probability for pulmonary embolus. Checo Conner MD Last Impressions Chest X-Ray 09/04/16 0600 Signed Impressions: Service Date/Time: Sunday, September 04, 2016 02:58 - CONCLUSION: No significant interval change. Fito Agarwal MD Lung Scan-VQ Nuclear Medicine 08/26/16 0000 Signed Impressions: Service Date/Time: Friday, August 26, 2016 20:26 - CONCLUSION: 1. Low probability for pulmonary embolus. Checo Conner MD Objective Remarks awake and alert, oriented x 3 on 2LNC anicteric lungs fine rales on right base regular rhtyhm abdomen soft, nontender extremities no edema neuro exam- unremarkable Assessment to: Remove Date of Removal: Sep 04, 2016 A/P Problem List: (1) Hypoxia ICD Code: R09.02 Status: Acute (2) Bandemia ICD Code: D72.825 Status: Acute (3) Dehydration ICD Code: E86.0 Status: Acute (4) Breast CA ICD Code: C50.919 Status: Acute (5) HTN (hypertension) ICD Code: I10 Status: Acute Assessment and Plan 76 years old female admitted for Acute hypoxemic respiratory failure- improving Extensive ground-glass opacities. Ddx: hypersensitivity pneumonitis vs chemotherapy induced pulmonary toxicity/ interstitial pneumonitis versus other causes of valvulitis Currently on high flow nasal cannula 25 L/50% to maintain saturations greater than or equal to 92% Duo nebs 3 times a day and as needed dyspnea Solu-Medrol 60 mg IV every [address] chest/not PE study 08/29 revealed extensive bilateral groundglass opacification Followed by Dr. Schultz/pulmonology On IV Levaquin will do walk test prior to DC if qualifies for home 02 Triple positive left breast cancer status post Herceptin scan and Taxol 07/15 weekly chemotherapy Normocytic anemia Leukocytosis Monitor CBC daily. Follow trends ID: Currently on Levaquin- since 08/27 Leukocytosis- on IV steroids Dyslipidemia Stage I diastolic dysfunction currently on Lipitor 80 mg by mouth at bedtime for dyslipidemia 2-D echo revealed EF 55%. Stage I diastolic dysfunction. Mild MR. Depression Continue Cymbalta 60 mg by mouth daily for depression Continue [place] for pain management good family support CV: Dyslipidemia Stage I diastolic dysfunction currently on Lipitor 80 mg by mouth at bedtime for dyslipidemia 2-D echo revealed EF 55%. Stage I diastolic dysfunction. Mild MR. GI: Advance diet as tolerated/regular Protonix for GI prophylaxis Letty-Colace twice a day bowel regimen with MiraLAX daily : Incontinence Saldana catheter for accurate I's nose any critically ill patient- DC folye today - check voiding 09/04 Continue Detrol LA 2 mg by mouth daily Endo: Sliding-scale insulin with Accu-Cheks to maintain euglycemia/before meals and at bedtime/low regimen Renal: Monitor urine output daily Accurate I's and O's Hyper-magnesium Replace electrolytes as clinically indicated Msk: PT/OT evaluate and treat Access - Utilized peripheral IVs. Has right Port-A-Cath if needed Prophylaxis - GI - Protonix - DVT - SCD/heparin subcutaneous Donald Sanz MD Sep 04, 2016 10:27
[2016-09-04] MEDS: LEVOFLOXACIN 750 MG PREMIX INJ 150 ML IV SCH (20:28)
[2016-09-05] VITALS (21 sets, daily range): BP systolic 120–146; BP diastolic 60–90; PULSE 80–117; RESP 11–39; TEMP 97.6–98.5; O2SAT 86–98
[2016-09-05] MEDS: methylPREDNISolone SOD SUCC 125 MG/2 ML VIAL IV SCH ×3 (05:49→21:14)
[2016-09-05] MEDS: HEPARIN SODIUM - SQ 10,000 UNITS/ML VIAL SQ SCH ×3 (05:49→21:13)
[2016-09-05] MEDS: INSULIN NovoLIN REGULAR SUPPLEMENTAL SCALE SQ SCH ×4 (07:00→21:00)
[2016-09-05] MEDS: RESP: ALBUTEROL 2.5 MG/IPRATROPIUM 0.5 MG NEB (SCH) NEB ×2 (07:58→19:14)
[2016-09-05] MEDS: DULoxetine HCl DR 60 MG CAP PO SCH (08:30)
[2016-09-05] MEDS: SODIUM CHLORIDE 0.9% FLUSH 10 ML FLUSH IV FLUSH PRN (08:30)
[2016-09-05] MEDS: SODIUM CHLORIDE 0.9% FLUSH 10 ML FLUSH IV FLUSH SCH ×2 (08:30→21:14)
[2016-09-05] MEDS: guaiFENesin E.R. 600 MG TAB PO SCH ×2 (08:31→21:14)
[2016-09-05] MEDS: PANTOPRAZOLE SOD 20 MG DELAYED RELEASE TAB PO SCH (08:31)
[2016-09-05] MEDS: ATORVASTATIN 80 MG TAB PO SCH (08:31)
[2016-09-05] MEDS: POLYETHYLENE GLYCOL 17 GM PKG PO SCH (09:00)
[2016-09-05] MEDS: DOCUSATE SODIUM 50 MG/SENNA 8.6 MG TAB PO SCH ×2 (09:00→21:00)
[2016-09-05] MEDS: TOLTERODINE TARTRATE 2 MG CAP LA PO SCH (10:06)
--- NOTE | 2016-09-05 10:43 | PD.ONC.PN ---
Subjective Subjective Remarks Afebrile overnight. Tolerating O2 via nasal cannula. Feels much better. Ate breakfast. Objective Data Date Time Temp Pulse Resp B/P Pulse Ox O2 Delivery O2 Flow Rate FiO2 09/05/16 10:00 112 09/05/16 10:00 117 37 130/60 86 09/05/16 09:00 109 36 133/90 90 09/05/16 08:00 94 Nasal Cannula 4.00 09/05/16 08:00 81 09/05/16 08:00 98.3 84 11 146/78 93 09/05/16 07:58 92 Nasal Cannula 5.00 09/05/16 07:00 80 21 144/78 98 09/05/16 06:00 93 09/05/16 04:00 94 Nasal Cannula 4.00 09/05/16 04:00 89 09/05/16 04:00 97.8 89 20 139/72 94 09/05/16 02:00 83 09/05/16 00:00 98.1 86 22 137/71 98 09/05/16 00:00 94 Nasal Cannula 4.00 09/05/16 00:00 86 09/04/16 22:00 102 09/04/16 21:30 98 Nasal Cannula 4.00 09/04/16 20:00 98.4 108 28 130/95 94 09/04/16 20:00 94 Nasal Cannula 4.00 09/04/16 20:00 108 09/04/16 18:00 100 09/04/16 16:00 98.7 101 33 118/60 91 09/04/16 16:00 91 Nasal Cannula 4.00 09/04/16 16:00 101 09/04/16 14:00 92 09/04/16 12:00 92 Nasal Cannula 4.00 09/04/16 12:00 100 09/04/16 12:00 99.1 100 27 124/65 92 09/05/16 09/05/16 09/05/16 07:00 15:00 23:00 Intake Total 80 ml Balance 80 ml Result Diagram: 09/04/16 0504 09/04/16 0504 Administered Medications Medications (Trade) Dose Ordered Sig/Aurelia Route PRN Reason Start Time Stop Time Status Last Admin Dose Admin Guaifenesin (Mucinex Er) 600 mg BID PO 08/26/16 21:00 09/05/16 08:31 Sodium Chloride (NS Flush) 2 ml UNSCH PRN IV FLUSH FLUSH AFTER USING IV ACCESS 08/26/16 20:00 09/05/16 08:30 Sodium Chloride (NS Flush) 2 ml BID IV FLUSH 08/26/16 21:00 09/05/16 08:30 Ondansetron HCl (Zofran Inj) 4 mg Q6H PRN IVP NAUSEA OR VOMITING 08/26/16 20:00 09/04/16 17:51 Heparin Sodium (Porcine) (Heparin Inj) 5,000 units Q8H SQ 08/26/16 20:00 09/05/16 05:49 Acetaminophen (Tylenol) 650 mg Q6H PRN PO FEVER/PAIN SCALE 1 TO 2 08/26/16 20:00 08/30/16 01:45 Senna/Docusate Sodium (Letty-Colace) 1 tab BID PO 08/26/16 21:00 09/03/16 21:55 Lactulose 30 ml 30 ml DAILY PRN PO SEVERE CONSITIPATION 08/26/16 20:00 09/01/16 09:06 Levofloxacin/ Dextrose (Levaquin 750 Mg Premix Inj) 150 ml @ 100 mls/hr Q24H IV 08/27/16 21:00 09/04/16 20:28 Duloxetine HCl (Cymbalta Dr) 60 mg DAILY PO 08/27/16 09:00 09/05/16 08:30 Atorvastatin Calcium (Lipitor) 80 mg DAILY PO 08/27/16 09:00 09/05/16 08:31 Tolterodine Tartrate (Detrol La) 2 mg DAILY PO 08/27/16 09:00 09/05/16 10:06 Potassium Phosphate (K-Phos) 2,000 mg Q4H PRN PO For Phosphorus < 2.5 mg/dL 08/28/16 16:30 08/28/16 19:22 Methylprednisolone Sodium Succinate (SoluMEDROL INJ) 60 mg Q8HR IV 08/29/16 14:00 09/05/16 05:49 Pantoprazole Sodium (Protonix) 20 mg DAILY PO 08/29/16 11:45 09/05/16 08:31 Insulin Human Regular (NovoLIN R SUPPLEMENTAL SCALE) 1 ACHS SQ 09/01/16 16:00 09/03/16 21:00 Objective Remarks GENERAL: Chronically ill appearing female, upright in bed in nad. SKIN: Warm and dry. HEAD: Normocephalic. EYES: No injection or drainage. NECK: Supple, trachea midline. CARDIOVASCULAR: +S1/S2, tachy RESPIRATORY: diminished at bases. occasional rhonchi. much improved. GASTROINTESTINAL: Abdomen soft, non-tender, nondistended. EXTREMITIES: No cyanosis NEUROLOGICAL: No obvious focal deficit. Awake, alert, and oriented x3. Assessment/Plan Problem List: (1) Hypoxia Status: Acute Plan: 09/05: check CBC. monitor respiratory status. continue steroids. --ECHO = no decrease LVEF --pulmonary toxicity either due to Herceptin or Taxol --dr. Hammond, pulmonology following --currently on Solu-medrol and Levaquin --V/Q scan in the emergency room which was low probability for pulmonary embolism. --chest x-ray showed mild interstitial prominence suggestive of some degree of vascular congestion of volume overload. No infiltrate or effusion was noted. (2) Breast CA Status: Acute Plan: no further chemo. --started on weekly Herceptin and Taxol chemotherapy on July 15. Assessment 76y/o with triple positive left breast cancer admitted with respiratory insufficiency. Attending Statement OOB to chair. Denies any SOB for CT chest today. continue steroid will follow. The exam, history, and the medical decision-making described in the above note were completed with the assistance of the mid-level provider. I reviewed and agree with the findings presented. I attest that I had a [id number] encounter with the patient on the same day, and personally performed and documented my assessment and findings in the medical record. Josey Gandara Sep 05, 2016 10:43 Tiburcio Kirk MD Sep 05, 2016 16:18
--- NOTE | 2016-09-05 10:50 | HHI.PR ---
Subjective Remarks Patient states sob is better denies fevers/chills Objective Vitals Vital Signs Date Time Temp Pulse Resp B/P Pulse Ox O2 Delivery O2 Flow Rate FiO2 09/05/16 10:00 112 09/05/16 10:00 117 37 130/60 86 09/05/16 09:00 109 36 133/90 90 09/05/16 08:00 94 Nasal Cannula 4.00 09/05/16 08:00 81 09/05/16 08:00 98.3 84 11 146/78 93 09/05/16 07:58 92 Nasal Cannula 5.00 09/05/16 07:00 80 21 144/78 98 09/05/16 06:00 93 09/05/16 04:00 94 Nasal Cannula 4.00 09/05/16 04:00 89 09/05/16 04:00 97.8 89 20 139/72 94 09/05/16 02:00 83 09/05/16 00:00 98.1 86 22 137/71 98 09/05/16 00:00 94 Nasal Cannula 4.00 09/05/16 00:00 86 09/04/16 22:00 102 09/04/16 21:30 98 Nasal Cannula 4.00 09/04/16 20:00 98.4 108 28 130/95 94 09/04/16 20:00 94 Nasal Cannula 4.00 09/04/16 20:00 108 09/04/16 18:00 100 09/04/16 16:00 98.7 101 33 118/60 91 09/04/16 16:00 91 Nasal Cannula 4.00 09/04/16 16:00 101 09/04/16 14:00 92 09/04/16 12:00 92 Nasal Cannula 4.00 09/04/16 12:00 100 09/04/16 12:00 99.1 100 27 124/65 92 I/O 09/04/16 09/04/16 09/04/16 09/05/16 09/05/16 09/05/16 07:00 15:00 23:00 07:00 15:00 23:00 Intake Total 205 ml 360 ml 270 ml 80 ml Output Total 250 ml 650 ml Balance -45 ml -290 ml 270 ml 80 ml Intake Oral 80 ml 360 ml 120 ml 80 ml IV Total 125 ml 150 ml 0 ml Output Urine Total 250 ml 650 ml # Voids 1 1 # Bowel Movements 0 0 0 0 Result Diagram: 09/04/16 0504 09/04/16 0504 Imaging Last Impressions Chest CT 09/05/16 0000 Signed Impressions: Service Date/Time: Monday, September 05, 2016 15:04 - CONCLUSION: Background of diffuse ground glass opacity throughout both lungs with minimal peripheral consolidation all suggestive of an inflammatory process. Process has progressed from faint ground glass opacity on 08/26/16. Soy Harper MD FACR Chest X-Ray 09/04/16 0600 Signed Impressions: Service Date/Time: Sunday, September 04, 2016 02:58 - CONCLUSION: No significant interval change. Fito Agarwal MD Lung Scan-V Nuclear Medicine 08/26/16 0000 Signed Impressions: Service Date/Time: Friday, August 26, 2016 20:26 - CONCLUSION: 1. Low probability for pulmonary embolus. Checo Conner MD Objective Remarks awake and alert, oriented x 3 anicteric lungs fine crackles on BL lower lung acosta. regular rhtyhm abdomen soft, nontender extremities no edema neuro exam- unremarkable Medications and IVs Current Medications Medications (Trade) Dose Ordered Sig/Aurelia Route Start Time Stop Time Status Last Admin (Mucinex Er) 600 mg BID PO 08/26/16 21:00 09/05/16 08:31 (NS Flush) 2 ml UNSCH PRN IV FLUSH 08/26/16 20:00 09/05/16 08:30 (NS Flush) 2 ml BID IV FLUSH 08/26/16 21:00 09/05/16 08:30 (Zofran Inj) 4 mg Q6H PRN IVP 08/26/16 20:00 09/05/16 18:41 (Heparin Inj) 5,000 units Q8H SQ 08/26/16 20:00 09/05/16 11:08 (Tylenol) 650 mg Q6H PRN PO 08/26/16 20:00 08/30/16 01:45 ([place] 5-325 Mg) 1 tab Q4H PRN PO 08/26/16 20:00 (Morphine Inj) 2 mg Q3H PRN IV 08/26/16 20:00 (Letty-Colace) 1 tab BID PO 08/26/16 21:00 09/03/16 21:55 (Milk Of Magnesia Liq) 30 ml Q12H PRN PO 08/26/16 20:00 (Senokot) 17.2 mg Q12H PRN PO 08/26/16 20:00 (Dulcolax Supp) 10 mg DAILY PRN RECTAL 08/26/16 20:00 Lactulose 30 ml 30 ml DAILY PRN PO 08/26/16 20:00 09/01/16 09:06 (Levaquin 750 Mg Premix Inj) 150 ml @ 100 mls/hr Q24H IV 08/27/16 21:00 09/04/16 20:28 (Cymbalta Dr) 60 mg DAILY PO 08/27/16 09:00 09/05/16 08:30 (Lipitor) 80 mg DAILY PO 08/27/16 09:00 09/05/16 08:31 (Detrol La) 2 mg DAILY PO 08/27/16 09:00 09/05/16 10:06 (Vasotec Inj) 1.25 mg Q6H PRN IV 08/28/16 10:30 (D50w (Vial) Inj) 50 ml UNSCH PRN IV 08/28/16 12:30 Glucagon 1 mg 1 mg UNSCH PRN OTHER 08/28/16 12:30 Potassium Chloride 100 ml @ 50 mls/hr Q2H PRN IV 08/28/16 16:30 (KCl 20 Meq Premix Inj) 100 ml @ 50 mls/hr Q2H PRN IV 08/28/16 16:30 Potassium Bicarb/ Potassium Chloride 50 meq 50 meq UNSCH PRN PO 08/28/16 16:30 Potassium Chloride 100 ml @ 25 mls/hr UNSCH PRN IV 08/28/16 16:30 Potassium Chloride 100 ml @ 50 mls/hr Q2H PRN IV 08/28/16 16:30 (Magnesium Sulfate Inj/NS Inj) 100 ml @ 50 mls/hr UNSCH PRN IV 08/28/16 16:30 Magnesium Oxide 800 mg 800 mg UNSCH PRN PO 08/28/16 16:30 (Magnesium Sulfate Inj/NS Inj) 100 ml @ 50 mls/hr UNSCH PRN IV 08/28/16 16:30 Potassium Phosphate 2000 mg 2,000 mg Q4H PRN PO 08/28/16 16:30 08/28/16 19:22 (Sodium Phosphate Inj/NS 250 ml Inj) 250 ml @ 42 mls/hr UNSCH PRN IV 08/28/16 16:30 Potassium Phosphate 2000 mg 2,000 mg UNSCH PRN PO/TUBE 08/28/16 16:30 (Potassium Phosphate Inj/NS 250 ml Inj) 260 ml @ 42 mls/hr UNSCH PRN IV 08/28/16 16:30 Miscellaneous Information Patient in critical care unit? Ass... Q361D .XX 08/28/16 19:30 (SoluMEDROL INJ) 60 mg Q8HR IV 08/29/16 14:00 09/05/16 13:08 (Protonix) 20 mg DAILY PO 08/29/16 11:45 09/05/16 08:31 (NovoLIN R SUPPLEMENTAL SCALE) 1 ACHS SQ 09/01/16 16:00 09/05/16 11:08 (Miralax) 17 gm DAILY PO 09/02/16 09:00 (Lasix Inj) 20 mg DAILY IV PUSH 09/06/16 09:00 (Bactrim Ds 800-160 Mg) 1 tab Q24H PO 09/05/16 13:00 09/05/16 13:08 Date of Removal: Sep 04, 2016 A/P Problem List: (1) Hypoxia ICD Code: R09.02 Status: Acute (2) Bandemia ICD Code: D72.825 Status: Acute (3) Dehydration ICD Code: E86.0 Status: Acute (4) Breast CA ICD Code: C50.919 Status: Acute (5) HTN (hypertension) ICD Code: I10 Status: Acute (6) Acute respiratory failure ICD Code: J96.00 Status: Acute Assessment and Plan 76 years old female admitted for Acute hypoxemic respiratory failure- improving Extensive ground-glass opacities. Ddx: hypersensitivity pneumonitis vs chemotherapy induced pulmonary toxicity/ interstitial pneumonitis versus other causes of valvulitis Currently on high flow nasal cannula 25 L/50% to maintain saturations greater than or equal to 92% Duo nebs 3 times a day and as needed dyspnea Solu-Medrol 60 mg IV every [address] chest/not PE study 08/29 revealed extensive bilateral groundglass opacification Followed by Dr. Schultz/pulmonology On IV Levaquin will do walk test prior to DC if qualifies for home 09/05 Patient with episodes of hypoxemia. Will start on IV lasix. For Ct chest today. Triple positive left breast cancer status post Herceptin scan and Taxol 07/15 weekly chemotherapy Normocytic anemia Leukocytosis Monitor CBC daily. Follow trends ID: Currently on Levaquin- since 08/27 Leukocytosis- on IV steroids Dyslipidemia Stage I diastolic dysfunction currently on Lipitor 80 mg by mouth at bedtime for dyslipidemia 2-D echo revealed EF 55%. Stage I diastolic dysfunction. Mild MR. Depression Continue Cymbalta 60 mg by mouth daily for depression Continue [place] for pain management good family support CV: Dyslipidemia Stage I diastolic dysfunction currently on Lipitor 80 mg by mouth at bedtime for dyslipidemia 2-D echo revealed EF 55%. Stage I diastolic dysfunction. Mild MR. GI: Advance diet as tolerated/regular Protonix for GI prophylaxis Letty-Colace twice a day bowel regimen with MiraLAX daily : Incontinence Saldana catheter for accurate I's nose any critically ill patient- DC folye today - check voiding 09/04 Continue Detrol LA 2 mg by mouth daily Endo: Sliding-scale insulin with Accu-Cheks to maintain euglycemia/before meals and at bedtime/low regimen Renal: Monitor urine output daily Accurate I's and O's Hyper-magnesium Replace electrolytes as clinically indicated Msk: PT/OT evaluate and treat Access - Utilized peripheral IVs. Has right Port-A-Cath if needed Prophylaxis - GI - Protonix - DVT - SCD/heparin subcutaneous Luis Alfredo Morse MD Sep 05, 2016 10:50
[2016-09-05] MEDS ORDERED: FUROSEMIDE 40 MG/4 ML VIAL IV PUSH ONE (11:00)
[2016-09-05 12:36] LABS: AUTOMATED NEUTROPHIL # 17.4 TH/MM3 (1.8-7.7); BASOPHIL % 0.2 % (0.0-2.0); EOSINOPHIL # 0.1 TH/MM3 (0-0.4); EOSINOPHIL % 0.4 % (0.0-4.0); HEMATOCRIT 37.4 % (35.0-46.0); LYMPHOCYTE # 0.6 TH/MM3 (1.0-4.8); MEAN CELL VOLUME 84.3 FL (80.0-100.0); MEAN CORPUSCULAR HEMOGLOBIN 27.6 PG (27.0-34.0); MEAN CORPUSCULAR HGB CONC 32.7 % (32.0-36.0); MONO % 8.2 % (0.0-8.0); NEUT % 88.2 % (16.0-70.0); PLATELET COUNT 371 TH/MM3 (150-450); RED BLOOD COUNT 4.43 MIL/MM3 (4.00-5.30); RED CELL DISTRIBUTION WIDTH 16.1 % (11.6-17.2); WHITE BLOOD COUNT 19.8 TH/MM3 (4.0-11.0)
[2016-09-05 12:40] LABS: HEMO FLAGS AUTO DIFF
[2016-09-05 13:07] LABS: BANDS 1 % (0-6); CORRECTED NUCLEATED RBC 1 /100 WBC (0-0); METAMYELOCYTES 2 % (0-1); MYELOCYTES 5 % (0-0); PLATELET ESTIMATE SMEAR NORMAL (NORMAL); PLATELET MORPHOLOGY NORMAL (NORMAL); POLYS (SEG NEUTROPHILS) 78 % (16-70); SCAN/DIFF FINAL DIFF MANUAL; WBC DIFF SAMPLE 100
[2016-09-05] MEDS: SULFAMETHOXAZOLE-TRIMETHOPRIM DS 800-160 MG TAB PO SCH (13:08)
--- NOTE | 2016-09-05 15:18 | RADRPT ---
EXAM DATE/TIME: 09/05/2016 15:04 [place] COMPARISON: CT PULMONARY ANGIOGRAM, August 26, 2016, 16:50. INDICATIONS : Shortness of breath. RADIATION DOSE: 9.96 CTDIvol (mGy) MEDICAL HISTORY : Cardiovascular disease. Carcinoma, breast. SURGICAL HISTORY : Appendectomy. ENCOUNTER: Initial ACUITY: 1 day PAIN SCALE: 0/10 LOCATION: Bilateral chest TECHNIQUE: Volumetric scanning of the chest was performed. Using automated exposure control and adjustment of t he mA and/or kV according to patient size, radiation dose was kept as low as reasonably achievable to obtain optimal diagnostic quality images. FINDINGS: The study is abnormal. There is a background of coarse interstitial changes present in both lungs. This is distributed uniformly throughout both lungs. There is no axillary adenopathy. There is no radiographically significant mediastinal adenopathy. Minimal coronary artery calcifications are noted. There is no pericardial effusion. Degenerative changes are present in the thoracic spine. CONCLUSION: Background of diffuse ground glass opacity throughout both lungs with minimal peripheral consolidatio n all suggestive of an inflammatory process. Process has progressed from faint ground glass opacity on 08/26/16. Soy Harper MD FACR on September 05, 2016 at 15:11 Board Certified Radiologist. This report was verified electronically.
[2016-09-05] MEDS: ONDANSETRON HCL 4 MG/2 ML VIAL IVP PRN (18:41)
[2016-09-05] MEDS: LEVOFLOXACIN 750 MG PREMIX INJ 150 ML IV SCH (21:13)
[2016-09-06] VITALS (19 sets, daily range): BP systolic 118–146; BP diastolic 61–82; PULSE 80–126; RESP 20–34; TEMP 97.6–98.6; O2SAT 88–99
[2016-09-06] MEDS: HEPARIN SODIUM - SQ 10,000 UNITS/ML VIAL SQ SCH ×3 (05:12→21:02)
[2016-09-06] MEDS: INSULIN NovoLIN REGULAR SUPPLEMENTAL SCALE SQ SCH ×4 (05:13→21:00)
[2016-09-06] MEDS: methylPREDNISolone SOD SUCC 125 MG/2 ML VIAL IV SCH ×2 (05:13→14:28)
[2016-09-06 05:45] LABS: AUTOMATED NEUTROPHIL # 16.6 TH/MM3 (1.8-7.7); BASOPHIL % 0.1 % (0.0-2.0); HEMATOCRIT 33.6 % (35.0-46.0); LYMPH % 2.5 % (9.0-44.0); LYMPHOCYTE # 0.5 TH/MM3 (1.0-4.8); MEAN CELL VOLUME 84.7 FL (80.0-100.0); MEAN CORPUSCULAR HEMOGLOBIN 27.4 PG (27.0-34.0); MEAN CORPUSCULAR HGB CONC 32.3 % (32.0-36.0); MONO % 10.1 % (0.0-8.0); NEUT % 87.3 % (16.0-70.0); PLATELET COUNT 295 TH/MM3 (150-450); RED BLOOD COUNT 3.96 MIL/MM3 (4.00-5.30); RED CELL DISTRIBUTION WIDTH 16.2 % (11.6-17.2)
[2016-09-06 05:49] LABS: HEMO FLAGS AUTO DIFF
[2016-09-06 06:09] LABS: ANION GAP 7 MEQ/L (5-15); AST (GOT) 27 U/L (15-37); BICARBONATE 26.1 MEQ/L (21.0-32.0); BLOOD UREA NITROGEN 17 MG/DL (7-18); CHLORIDE 102 MEQ/L (98-107); GLOMERULAR FILTRATION RATE 93 ML/MIN (>89); MAGNESIUM 2.4 MG/DL (1.5-2.5); POTASSIUM 4.2 MEQ/L (3.5-5.1); SODIUM (NA) 135 MEQ/L (136-145)
[2016-09-06 06:10] LABS: ALT (GPT) 45 U/L (10-53)
[2016-09-06 06:12] LABS: ALKALINE PHOSPHATASE 73 U/L (45-117); TOTAL BILIRUBIN ADULT 0.4 MG/DL (0.2-1.0)
[2016-09-06 08:26] LABS: BANDS 8 % (0-6); METAMYELOCYTES 1 % (0-1); MYELOCYTES 3 % (0-0); NEUTROPHIL # MANUAL DIFF 17.1 TH/MM3 (1.8-7.7); PLATELET ESTIMATE SMEAR NORMAL (NORMAL); PLATELET MORPHOLOGY NORMAL (NORMAL); POLYS (SEG NEUTROPHILS) 78 % (16-70); SCAN/DIFF FINAL DIFF MANUAL; WBC DIFF SAMPLE 100
[2016-09-06] MEDS: SODIUM CHLORIDE 0.9% FLUSH 10 ML FLUSH IV FLUSH SCH ×2 (08:42→21:02)
[2016-09-06] MEDS: FUROSEMIDE 20 MG/2 ML VIAL IV PUSH SCH (08:43)
[2016-09-06] MEDS: DULoxetine HCl DR 60 MG CAP PO SCH (08:43)
[2016-09-06] MEDS: TOLTERODINE TARTRATE 2 MG CAP LA PO SCH (08:43)
[2016-09-06] MEDS: ATORVASTATIN 80 MG TAB PO SCH (08:43)
[2016-09-06] MEDS: SODIUM CHLORIDE 0.9% FLUSH 10 ML FLUSH IV FLUSH PRN (08:43)
[2016-09-06] MEDS: ONDANSETRON HCL 4 MG/2 ML VIAL IVP PRN ×2 (08:43→18:44)
[2016-09-06] MEDS: PANTOPRAZOLE SOD 20 MG DELAYED RELEASE TAB PO SCH (08:44)
[2016-09-06] MEDS: guaiFENesin E.R. 600 MG TAB PO SCH ×2 (08:44→21:02)
[2016-09-06] MEDS: POLYETHYLENE GLYCOL 17 GM PKG PO SCH (09:00)
[2016-09-06] MEDS ORDERED: FUROSEMIDE 20 MG/2 ML VIAL IV PUSH SCH (09:00)
[2016-09-06] MEDS: DOCUSATE SODIUM 50 MG/SENNA 8.6 MG TAB PO SCH ×2 (09:00→21:00)
[2016-09-06] MEDS: RESP: ALBUTEROL 2.5 MG/IPRATROPIUM 0.5 MG NEB (SCH) NEB ×2 (09:46→20:59)
[2016-09-06] MEDS: POTASSIUM PHOSPHATE MONOBASIC 500 MG TAB PO PRN ×2 (10:57→14:29)
--- NOTE | 2016-09-06 11:30 | PD.ONC.PN ---
Subjective Subjective Remarks Afebrile overnight. patient breathing much better. On 4L O2 via nc. hoping to be transferred to med/surg floor. Objective Data Date Time Temp Pulse Resp B/P Pulse Ox O2 Delivery O2 Flow Rate FiO2 09/06/16 10:00 126 09/06/16 10:00 115 28 146/63 91 09/06/16 09:00 99 30 118/82 09/06/16 08:00 96 Nasal Cannula 4.00 09/06/16 08:00 97.6 84 23 141/73 96 09/06/16 08:00 80 09/06/16 07:00 80 20 135/70 09/06/16 06:00 85 09/06/16 04:00 84 09/06/16 04:00 98.5 84 20 133/65 95 09/06/16 04:00 97 Nasal Cannula 5.00 09/06/16 02:00 86 09/06/16 00:00 91 09/06/16 00:00 91 Nasal Cannula 5.00 09/06/16 00:00 98.6 91 21 129/61 94 09/05/16 22:00 96 09/05/16 20:00 101 09/05/16 20:00 98.5 101 28 120/60 97 09/05/16 20:00 97 Nasal Cannula 4.00 09/05/16 19:14 93 Nasal Cannula 4.00 09/05/16 19:00 90 25 123/66 95 09/05/16 18:00 106 09/05/16 18:00 106 31 123/67 93 09/05/16 17:00 97 39 127/73 96 09/05/16 16:00 98 09/05/16 16:00 92 Nasal Cannula 4.00 09/05/16 16:00 97.6 98 31 127/90 92 09/05/16 15:00 104 31 135/67 88 09/05/16 14:00 92 24 127/71 95 09/05/16 14:00 92 09/05/16 13:00 110 30 131/82 92 09/05/16 12:00 98.0 107 24 132/67 92 09/05/16 12:00 92 Nasal Cannula 4.00 09/05/16 12:00 107 09/06/16 09/06/16 09/06/16 07:00 15:00 23:00 Intake Total 214 ml Balance 214 ml Result Diagram: 09/06/16 0500 09/06/16 0500 Laboratory Results Laboratory Tests Test 09/05/16 09/06/16 12:27 05:00 White Blood Count 19.8 TH/MM3 19.0 TH/MM3 Red Blood Count 4.43 MIL/MM3 3.96 MIL/MM3 Hemoglobin 12.2 GM/DL 10.8 GM/DL Hematocrit 37.4 % 33.6 % Mean Corpuscular Volume 84.3 FL 84.7 FL Mean Corpuscular Hemoglobin 27.6 PG 27.4 PG Mean Corpuscular Hemoglobin 32.7 % 32.3 % Concent Red Cell Distribution Width 16.1 % 16.2 % Platelet Count 371 TH/MM3 295 TH/MM3 Mean Platelet Volume 9.2 FL 9.7 FL Neutrophils (%) (Auto) 88.2 % 87.3 % Lymphocytes (%) (Auto) 3.0 % 2.5 % Monocytes (%) (Auto) 8.2 % 10.1 % Eosinophils (%) (Auto) 0.4 % 0.0 % Basophils (%) (Auto) 0.2 % 0.1 % Neutrophils # (Auto) 17.4 TH/MM3 16.6 TH/MM3 Lymphocytes # (Auto) 0.6 TH/MM3 0.5 TH/MM3 Monocytes # (Auto) 1.6 TH/MM3 1.9 TH/MM3 Eosinophils # (Auto) 0.1 TH/MM3 0.0 TH/MM3 Basophils # (Auto) 0.0 TH/MM3 0.0 TH/MM3 CBC Comment AUTO DIFF AUTO DIFF Differential Total Cells 100 100 Counted Neutrophils % (Manual) 78 % 78 % Band Neutrophils % 1 % 8 % Lymphocytes % 4 % 2 % Monocytes % 10 % 8 % Neutrophils # (Manual) 17.0 TH/MM3 17.1 TH/MM3 Metamyelocytes 2 % 1 % Myelocytes 5 % 3 % Nucleated Red Blood Cells 1 /100 WBC Differential Comment FINAL DIFF FINAL DIFF MANUAL MANUAL Platelet Estimate NORMAL NORMAL Platelet Morphology Comment NORMAL NORMAL Red Cell Morphology Comment NORMAL NORMAL Hematology Comments Sodium Level 135 MEQ/L Potassium Level 4.2 MEQ/L Chloride Level 102 MEQ/L Carbon Dioxide Level 26.1 MEQ/L Anion Gap 7 MEQ/L Blood Urea Nitrogen 17 MG/DL Creatinine 0.62 MG/DL Estimat Glomerular Filtration 93 ML/MIN Rate Random Glucose 114 MG/DL Calcium Level 8.3 MG/DL Phosphorus Level 2.4 MG/DL Magnesium Level 2.4 MG/DL Total Bilirubin 0.4 MG/DL Aspartate Amino Transf 27 U/L (AST/SGOT) Alanine Aminotransferase 45 U/L (ALT/SGPT) Alkaline Phosphatase 73 U/L Total Protein 5.6 GM/DL Albumin 2.5 GM/DL Administered Medications Medications (Trade) Dose Ordered Sig/Aurelia Route PRN Reason Start Time Stop Time Status Last Admin Dose Admin Guaifenesin (Mucinex Er) 600 mg BID PO 08/26/16 21:00 09/06/16 08:44 Sodium Chloride (NS Flush) 2 ml UNSCH PRN IV FLUSH FLUSH AFTER USING IV ACCESS 08/26/16 20:00 09/06/16 08:43 Sodium Chloride (NS Flush) 2 ml BID IV FLUSH 08/26/16 21:00 09/06/16 08:42 Ondansetron HCl (Zofran Inj) 4 mg Q6H PRN IVP NAUSEA OR VOMITING 08/26/16 20:00 09/06/16 08:43 Heparin Sodium (Porcine) (Heparin Inj) 5,000 units Q8H SQ 08/26/16 20:00 09/06/16 11:01 Acetaminophen (Tylenol) 650 mg Q6H PRN PO FEVER/PAIN SCALE 1 TO 2 08/26/16 20:00 08/30/16 01:45 Senna/Docusate Sodium (Letty-Colace) 1 tab BID PO 08/26/16 21:00 09/03/16 21:55 Lactulose 30 ml 30 ml DAILY PRN PO SEVERE CONSITIPATION 08/26/16 20:00 09/01/16 09:06 Levofloxacin/ Dextrose (Levaquin 750 Mg Premix Inj) 150 ml @ 100 mls/hr Q24H IV 08/27/16 21:00 09/05/16 21:13 Duloxetine HCl (Cymbalta Dr) 60 mg DAILY PO 08/27/16 09:00 09/06/16 08:43 Atorvastatin Calcium (Lipitor) 80 mg DAILY PO 08/27/16 09:00 09/06/16 08:43 Tolterodine Tartrate (Detrol La) 2 mg DAILY PO 08/27/16 09:00 09/06/16 08:43 Potassium Phosphate (K-Phos) 2,000 mg Q4H PRN PO For Phosphorus < 2.5 mg/dL 08/28/16 16:30 09/06/16 10:57 Methylprednisolone Sodium Succinate (SoluMEDROL INJ) 60 mg Q8HR IV 08/29/16 14:00 09/06/16 05:13 Pantoprazole Sodium (Protonix) 20 mg DAILY PO 08/29/16 11:45 09/06/16 08:44 Insulin Human Regular (NovoLIN R SUPPLEMENTAL SCALE) 1 ACHS SQ 09/01/16 16:00 09/06/16 11:00 Furosemide (Lasix Inj) 20 mg DAILY IV PUSH 09/06/16 09:00 09/06/16 08:43 Trimethoprim/ Sulfamethoxazole (Bactrim Ds 800-160 Mg) 1 tab Q24H PO 09/05/16 13:00 09/05/16 13:08 Objective Remarks GENERAL: Elderly female, upright in bed in [facility]. SKIN: Warm and dry. HEAD: Normocephalic. EYES: No injection or drainage. NECK: Supple, trachea midline. CARDIOVASCULAR: +S1/S2, tachy RESPIRATORY: scattered rhonchi GASTROINTESTINAL: Abdomen soft, non-tender, nondistended. EXTREMITIES: No cyanosis NEUROLOGICAL: awake and alert, normal speech Assessment/Plan Problem List: (1) Hypoxia Status: Acute Plan: 09/06: continue solu-medrol. monitor respiratory status. monitor CBC --ECHO = no decrease LVEF --pulmonary toxicity either due to Herceptin or Taxol --dr. Hammond, pulmonology following --currently on Solu-medrol and Levaquin --V/Q scan in the emergency room which was low probability for pulmonary embolism. --chest x-ray showed mild interstitial prominence suggestive of some degree of vascular congestion of volume overload. No infiltrate or effusion was noted. (2) Breast CA Status: Acute Plan: no further chemo. --started on weekly Herceptin and Taxol chemotherapy on July 15. Assessment 76y/o with triple positive left breast cancer admitted with respiratory insufficiency. Attending Statement Patient claims that her breathing has improved Oxygen at 4 L Continue steroid Okay to Transfer [facility] The exam, history, and the medical decision-making described in the above note were completed with the assistance of the mid-level provider. I reviewed and agree with the findings presented. I attest that I had a [id number] encounter with the patient on the same day, and personally performed and documented my assessment and findings in the medical record. Josey Gandara Sep 06, 2016 11:30 Tiburcio Kirk MD Sep 07, 2016 00:02
[2016-09-06] MEDS: SULFAMETHOXAZOLE-TRIMETHOPRIM DS 800-160 MG TAB PO SCH (14:29)
--- NOTE | 2016-09-06 18:17 | HHI.PR ---
Subjective Remarks The patient states breathing is much improved. Denies fevers chills Denies cough States her appetite is better. Objective Vitals Vital Signs Date Time Temp Pulse Resp B/P Pulse Ox O2 Delivery O2 Flow Rate FiO2 09/06/16 18:00 105 09/06/16 17:00 97 26 120/65 96 09/06/16 16:00 97.6 95 30 133/63 96 09/06/16 16:00 96 Nasal Cannula 4.00 09/06/16 16:00 95 09/06/16 15:00 105 34 126/61 88 09/06/16 14:00 97 23 124/66 99 09/06/16 14:00 97 09/06/16 13:00 108 29 130/67 92 09/06/16 12:00 97.6 102 21 120/63 99 09/06/16 12:00 99 Nasal Cannula 4.00 09/06/16 12:00 102 09/06/16 11:00 120 29 128/67 91 09/06/16 10:00 126 09/06/16 10:00 115 28 146/63 91 09/06/16 09:00 99 30 118/82 09/06/16 08:00 96 Nasal Cannula 4.00 09/06/16 08:00 97.6 84 23 141/73 96 09/06/16 08:00 80 09/06/16 07:00 80 20 135/70 09/06/16 06:00 85 09/06/16 04:00 84 09/06/16 04:00 98.5 84 20 133/65 95 09/06/16 04:00 97 Nasal Cannula 5.00 09/06/16 02:00 86 09/06/16 00:00 91 09/06/16 00:00 91 Nasal Cannula 5.00 09/06/16 00:00 98.6 91 21 129/61 94 09/05/16 22:00 96 09/05/16 20:00 101 09/05/16 20:00 98.5 101 28 120/60 97 09/05/16 20:00 97 Nasal Cannula 4.00 09/05/16 19:14 93 Nasal Cannula 4.00 09/05/16 19:00 90 25 123/66 95 I/O 09/05/16 09/05/16 09/05/16 09/06/16 09/06/16/20/17 07:00 15:00 23:00 07:00 15:00 23:00 Intake Total 80 ml 666 ml 120 ml 214 ml 666 ml Output Total 1950 ml 1850 ml Balance 80 ml -1284 ml 120 ml 214 ml -1184 ml Intake Oral 80 ml 666 ml 120 ml 0 ml 666 ml IV Total 0 ml 0 ml 214 ml Output Urine Total 1950 ml 1850 ml # Voids 1 1 0 # Bowel Movements 0 2 0 0 1 Result Diagram: 09/06/16 0500 09/06/16 0500 Imaging Last Impressions Chest CT 09/05/16 0000 Signed Impressions: Service Date/Time: Monday, September 05, 2016 15:04 - CONCLUSION: Background of diffuse ground glass opacity throughout both lungs with minimal peripheral consolidation all suggestive of an inflammatory process. Process has progressed from faint ground glass opacity on 08/26/16. Soy Harper MD FACR Chest X-Ray 09/04/16 0600 Signed Impressions: Service Date/Time: Sunday, September 04, 2016 02:58 - CONCLUSION: No significant interval change. Fito Agarwal MD Lung Scan-V Nuclear Medicine 08/26/16 0000 Signed Impressions: Service Date/Time: Friday, August 26, 2016 20:26 - CONCLUSION: 1. Low probability for pulmonary embolus. Checo Conner MD Objective Remarks awake and alert, oriented x 3 anicteric lungs fine crackles on BL lower lung acosta. regular rhtyhm abdomen soft, nontender extremities no edema neuro exam- unremarkable Medications and IVs Current Medications Medications (Trade) Dose Ordered Sig/Aurelia Route Start Time Stop Time Status Last Admin (Mucinex Er) 600 mg BID PO 08/26/16 21:00 09/06/16 08:44 (NS Flush) 2 ml UNSCH PRN IV FLUSH 08/26/16 20:00 09/06/16 08:43 (NS Flush) 2 ml BID IV FLUSH 08/26/16 21:00 09/06/16 08:42 (Zofran Inj) 4 mg Q6H PRN IVP 08/26/16 20:00 09/06/16 18:44 (Heparin Inj) 5,000 units Q8H SQ 08/26/16 20:00 09/06/16 11:01 (Tylenol) 650 mg Q6H PRN PO 08/26/16 20:00 08/30/16 01:45 ([place] 5-325 Mg) 1 tab Q4H PRN PO 08/26/16 20:00 (Morphine Inj) 2 mg Q3H PRN IV 08/26/16 20:00 (Letty-Colace) 1 tab BID PO 08/26/16 21:00 09/03/16 21:55 (Milk Of Magnesia Liq) 30 ml Q12H PRN PO 08/26/16 20:00 (Senokot) 17.2 mg Q12H PRN PO 08/26/16 20:00 (Dulcolax Supp) 10 mg DAILY PRN RECTAL 08/26/16 20:00 (Lactulose Liq) 30 ml DAILY PRN PO 08/26/16 20:00 09/01/16 09:06 (Cymbalta Dr) 60 mg DAILY PO 08/27/16 09:00 09/06/16 08:43 (Lipitor) 80 mg DAILY PO 08/27/16 09:00 09/06/16 08:43 (Detrol La) 2 mg DAILY PO 08/27/16 09:00 09/06/16 08:43 (Vasotec Inj) 1.25 mg Q6H PRN IV 08/28/16 10:30 (D50w (Vial) Inj) 50 ml UNSCH PRN IV 08/28/16 12:30 Glucagon 1 mg 1 mg UNSCH PRN OTHER 08/28/16 12:30 Potassium Chloride 100 ml @ 50 mls/hr Q2H PRN IV 08/28/16 16:30 (KCl 20 Meq Premix Inj) 100 ml @ 50 mls/hr Q2H PRN IV 08/28/16 16:30 Potassium Bicarb/ Potassium Chloride 50 meq 50 meq UNSCH PRN PO 08/28/16 16:30 Potassium Chloride 100 ml @ 25 mls/hr UNSCH PRN IV 08/28/16 16:30 Potassium Chloride 100 ml @ 50 mls/hr Q2H PRN IV 08/28/16 16:30 (Magnesium Sulfate Inj/NS Inj) 100 ml @ 50 mls/hr UNSCH PRN IV 08/28/16 16:30 Magnesium Oxide 800 mg 800 mg UNSCH PRN PO 08/28/16 16:30 (Magnesium Sulfate Inj/NS Inj) 100 ml @ 50 mls/hr UNSCH PRN IV 08/28/16 16:30 Potassium Phosphate 2000 mg 2,000 mg Q4H PRN PO 08/28/16 16:30 09/06/16 14:29 (Sodium Phosphate Inj/NS 250 ml Inj) 250 ml @ 42 mls/hr UNSCH PRN IV 08/28/16 16:30 Potassium Phosphate 2000 mg 2,000 mg UNSCH PRN PO/TUBE 08/28/16 16:30 (Potassium Phosphate Inj/NS 250 ml Inj) 260 ml @ 42 mls/hr UNSCH PRN IV 08/28/16 16:30 Miscellaneous Information Patient in critical care unit? Ass... Q361D .XX 08/28/16 19:30 (Protonix) 20 mg DAILY PO 08/29/16 11:45 09/06/16 08:44 (NovoLIN R SUPPLEMENTAL SCALE) 1 ACHS SQ 09/01/16 16:00 09/06/16 11:00 (Miralax) 17 gm DAILY PO 09/02/16 09:00 (Lasix Inj) 20 mg DAILY IV PUSH 09/06/16 09:00 09/06/16 08:43 (Bactrim Ds 800-160 Mg) 1 tab Q24H PO 09/05/16 13:00 09/06/16 14:29 (SoluMEDROL INJ) 60 mg Q12H IV 09/07/16 02:00 Urinary Catheter: No Date of Removal: Sep 04, 2016 Vascular Central Line Catheter: No A/P Problem List: (1) Hypoxia ICD Code: R09.02 Status: Acute (2) Bandemia ICD Code: D72.825 Status: Acute (3) Dehydration ICD Code: E86.0 Status: Resolved (4) Breast CA ICD Code: C50.919 Status: Acute (5) HTN (hypertension) ICD Code: I10 Status: Acute (6) Acute respiratory failure ICD Code: J96.00 Status: Resolved Assessment and Plan 76 years old female admitted for Acute hypoxemic respiratory failure- improving Extensive ground-glass opacities. Ddx: hypersensitivity pneumonitis vs chemotherapy induced pulmonary toxicity/ interstitial pneumonitis versus other causes of valvulitis Currently on high flow nasal cannula 25 L/50% to maintain saturations greater than or equal to 92% Duo nebs 3 times a day and as needed dyspnea Solu-Medrol 60 mg IV every [address] chest/not PE study 08/29 revealed extensive bilateral groundglass opacification Followed by Dr. Schultz/pulmonology On IV Levaquin will do walk test prior to DC if qualifies for home 02 09/05 Patient with episodes of hypoxemia. Will start on IV lasix. For Ct chest today. 09/06 patient still having some episodes of hypoxemia. Continue IV Lasix, continue supplemental oxygen to keep oxygen duration 1-92%, continue bronchodilators. CT chest obtained showed background of diffuse groundglass opacity throughout both lungs with minimal peripheral consolidation all suggestive of a inflammatory process. Continue to follow up pulmonology recommendations. Continue IV steroids and pulmonology. Triple positive left breast cancer status post Herceptin scan and Taxol 07/15 weekly chemotherapy Normocytic anemia Leukocytosis Monitor CBC daily. Follow trends 09/06 WBC still elevated and 19 K. Patient is afebrile and symptom improvement. Possibly leukemoid reaction from steroids. ID: Currently on Levaquin- since 08/27 Leukocytosis- on IV steroids Dyslipidemia Stage I diastolic dysfunction currently on Lipitor 80 mg by mouth at bedtime for dyslipidemia 2-D echo revealed EF 55%. Stage I diastolic dysfunction. Mild MR. Depression Continue Cymbalta 60 mg by mouth daily for depression Continue [place] for pain management good family support CV: Dyslipidemia Stage I diastolic dysfunction currently on Lipitor 80 mg by mouth at bedtime for dyslipidemia 2-D echo revealed EF 55%. Stage I diastolic dysfunction. Mild MR. GI: Advance diet as tolerated/regular Protonix for GI prophylaxis Letty-Colace twice a day bowel regimen with MiraLAX daily : Incontinence Saldana catheter for accurate I's nose any critically ill patient- DC folye today - check voiding 09/04 Continue Detrol LA 2 mg by mouth daily Endo: Sliding-scale insulin with Accu-Cheks to maintain euglycemia/before meals and at bedtime/low regimen Renal: Monitor urine output daily Accurate I's and O's Hyper-magnesium Replace electrolytes as clinically indicated Msk: PT/OT evaluate and treat Access - Utilized peripheral IVs. Has right Port-A-Cath if needed Prophylaxis - GI - Protonix - DVT - SCD/heparin subcutaneous Discharge Planning Okay to transfer to the medical floor. Luis Alfredo Morse MD Sep 06, 2016 18:17
[2016-09-07] VITALS (20 sets, daily range): BP systolic 112–131; BP diastolic 60–69; PULSE 88–120; RESP 20–38; TEMP 98.2–98.8; O2SAT 89–98
[2016-09-07] MEDS ORDERED: methylPREDNISolone SOD SUCC 125 MG/2 ML VIAL IV SCH (02:00)
[2016-09-07 04:27] LABS: ALT (GPT) 41 U/L (10-53); ANION GAP 7 MEQ/L (5-15); AST (GOT) 26 U/L (15-37); BICARBONATE 29.5 MEQ/L (21.0-32.0); BLOOD UREA NITROGEN 17 MG/DL (7-18); CHLORIDE 100 MEQ/L (98-107); GLOMERULAR FILTRATION RATE 87 ML/MIN (>89); MAGNESIUM 2.4 MG/DL (1.5-2.5); POTASSIUM 4.5 MEQ/L (3.5-5.1); SODIUM (NA) 136 MEQ/L (136-145)
[2016-09-07 04:29] LABS: ALKALINE PHOSPHATASE 62 U/L (45-117); TOTAL BILIRUBIN ADULT 0.5 MG/DL (0.2-1.0)
[2016-09-07 04:33] LABS: AUTOMATED NEUTROPHIL # 17.5 TH/MM3 (1.8-7.7); BASOPHIL % 0.1 % (0.0-2.0); HEMATOCRIT 33.9 % (35.0-46.0); LYMPH % 3.8 % (9.0-44.0); LYMPHOCYTE # 0.8 TH/MM3 (1.0-4.8); MEAN CELL VOLUME 83.7 FL (80.0-100.0); MEAN CORPUSCULAR HEMOGLOBIN 27.6 PG (27.0-34.0); MEAN CORPUSCULAR HGB CONC 32.9 % (32.0-36.0); MONO % 10.7 % (0.0-8.0); NEUT % 85.4 % (16.0-70.0); PLATELET COUNT 283 TH/MM3 (150-450); RED BLOOD COUNT 4.05 MIL/MM3 (4.00-5.30); RED CELL DISTRIBUTION WIDTH 16.2 % (11.6-17.2); WHITE BLOOD COUNT 20.5 TH/MM3 (4.0-11.0)
[2016-09-07 04:34] LABS: HEMO FLAGS AUTO DIFF
[2016-09-07] MEDS: INSULIN NovoLIN REGULAR SUPPLEMENTAL SCALE SQ SCH ×4 (05:51→20:54)
[2016-09-07] MEDS: HEPARIN SODIUM - SQ 10,000 UNITS/ML VIAL SQ SCH ×3 (05:51→20:50)
--- NOTE | 2016-09-07 08:18 | PD.ONC.PN ---
Subjective Subjective Remarks Afebrile overnight. Pt remains on 4L NC but states she feels like she is breathing much better Has transfer to floor, just waiting on bed. Objective Data Date Time Temp Pulse Resp B/P Pulse Ox O2 Delivery O2 Flow Rate FiO2 09/07/16 06:00 88 09/07/16 04:00 93 Nasal Cannula 4.00 09/07/16 04:00 98.2 89 20 123/63 93 09/07/16 04:00 89 09/07/16 02:00 88 09/07/16 00:00 94 Nasal Cannula 5.00 09/07/16 00:00 98.2 95 22 130/61 94 09/07/16 00:00 95 09/06/16 22:00 100 09/06/16 21:01 93 Nasal Cannula 4.00 09/06/16 20:00 93 Nasal Cannula 4.00 09/06/16 20:00 102 09/06/16 20:00 98.2 102 29 130/68 93 09/06/16 18:00 105 09/06/16 17:00 97 26 120/65 96 09/06/16 16:00 97.6 95 30 133/63 96 09/06/16 16:00 96 Nasal Cannula 4.00 09/06/16 16:00 95 09/06/16 15:00 105 34 126/61 88 09/06/16 14:00 97 23 124/66 99 09/06/16 14:00 97 09/06/16 13:00 108 29 130/67 92 09/06/16 12:00 97.6 102 21 120/63 99 09/06/16 12:00 99 Nasal Cannula 4.00 09/06/16 12:00 102 09/06/16 11:00 120 29 128/67 91 09/06/16 10:00 126 09/06/16 10:00 115 28 146/63 91 09/06/16 09:00 99 30 118/82 09/07/16 09/07/16 09/07/16 07:00 15:00 23:00 Intake Total 120 ml Output Total 300 ml Balance -180 ml Result Diagram: 09/07/16 0352 09/07/16 0352 Laboratory Results Laboratory Tests Test 09/07/16 03:52 White Blood Count 20.5 TH/MM3 Red Blood Count 4.05 MIL/MM3 Hemoglobin 11.1 GM/DL Hematocrit 33.9 % Mean Corpuscular Volume 83.7 FL Mean Corpuscular Hemoglobin 27.6 PG Mean Corpuscular Hemoglobin 32.9 % Concent Red Cell Distribution Width 16.2 % Platelet Count 283 TH/MM3 Mean Platelet Volume 9.6 FL Neutrophils (%) (Auto) 85.4 % Lymphocytes (%) (Auto) 3.8 % Monocytes (%) (Auto) 10.7 % Eosinophils (%) (Auto) 0.0 % Basophils (%) (Auto) 0.1 % Neutrophils # (Auto) 17.5 TH/MM3 Lymphocytes # (Auto) 0.8 TH/MM3 Monocytes # (Auto) 2.2 TH/MM3 Eosinophils # (Auto) 0.0 TH/MM3 Basophils # (Auto) 0.0 TH/MM3 CBC Comment AUTO DIFF Sodium Level 136 MEQ/L Potassium Level 4.5 MEQ/L Chloride Level 100 MEQ/L Carbon Dioxide Level 29.5 MEQ/L Anion Gap 7 MEQ/L Blood Urea Nitrogen 17 MG/DL Creatinine 0.66 MG/DL Estimat Glomerular Filtration 87 ML/MIN Rate Random Glucose 107 MG/DL Calcium Level 8.5 MG/DL Phosphorus Level 2.8 MG/DL Magnesium Level 2.4 MG/DL Total Bilirubin 0.5 MG/DL Aspartate Amino Transf 26 U/L (AST/SGOT) Alanine Aminotransferase 41 U/L (ALT/SGPT) Alkaline Phosphatase 62 U/L Total Protein 5.6 GM/DL Albumin 2.6 GM/DL Administered Medications Medications (Trade) Dose Ordered Sig/Aurelia Route PRN Reason Start Time Stop Time Status Last Admin Dose Admin Guaifenesin (Mucinex Er) 600 mg BID PO 08/26/16 21:00 09/06/16 21:02 Sodium Chloride (NS Flush) 2 ml UNSCH PRN IV FLUSH FLUSH AFTER USING IV ACCESS 08/26/16 20:00 09/06/16 08:43 Sodium Chloride (NS Flush) 2 ml BID IV FLUSH 08/26/16 21:00 09/06/16 21:02 Ondansetron HCl (Zofran Inj) 4 mg Q6H PRN IVP NAUSEA OR VOMITING 08/26/16 20:00 09/06/16 18:44 Heparin Sodium (Porcine) (Heparin Inj) 5,000 units Q8H SQ 08/26/16 20:00 09/07/16 05:51 Acetaminophen (Tylenol) 650 mg Q6H PRN PO FEVER/PAIN SCALE 1 TO 2 08/26/16 20:00 08/30/16 01:45 Senna/Docusate Sodium (Letty-Colace) 1 tab BID PO 08/26/16 21:00 09/03/16 21:55 Lactulose (Lactulose Liq) 30 ml DAILY PRN PO SEVERE CONSITIPATION 08/26/16 20:00 09/01/16 09:06 Duloxetine HCl (Cymbalta Dr) 60 mg DAILY PO 08/27/16 09:00 09/06/16 08:43 Atorvastatin Calcium (Lipitor) 80 mg DAILY PO 08/27/16 09:00 09/06/16 08:43 Tolterodine Tartrate (Detrol La) 2 mg DAILY PO 08/27/16 09:00 09/06/16 08:43 Potassium Phosphate (K-Phos) 2,000 mg Q4H PRN PO For Phosphorus < 2.5 mg/dL 08/28/16 16:30 09/06/16 14:29 Pantoprazole Sodium (Protonix) 20 mg DAILY PO 08/29/16 11:45 09/06/16 08:44 Insulin Human Regular (NovoLIN R SUPPLEMENTAL SCALE) 1 ACHS SQ 09/01/16 16:00 09/06/16 21:00 Furosemide (Lasix Inj) 20 mg DAILY IV PUSH 09/06/16 09:00 09/06/16 08:43 Trimethoprim/ Sulfamethoxazole (Bactrim Ds 800-160 Mg) 1 tab Q24H PO 09/05/16 13:00 09/06/16 14:29 Methylprednisolone Sodium Succinate (SoluMEDROL INJ) 60 mg Q12H IV 09/07/16 02:00 09/07/16 02:14 Objective Remarks GENERAL: Elderly female, upright in bed in no acute distress. SKIN: Warm and dry. No oozing from lines. HEAD: Normocephalic. EYES: No injection or drainage. NECK: Supple, trachea midline. CARDIOVASCULAR: +S1/S2, tachy RESPIRATORY: Few crackles posteriorly. GASTROINTESTINAL: Abdomen soft, non-tender, nondistended. EXTREMITIES: No cyanosis. SCD's to BLE. NEUROLOGICAL: A&Ox3. Normal speech. Moving all extremities. Assessment/Plan Problem List: (1) Hypoxia Status: Acute Plan: 09/07: Continue supportive care with steroids. Clinically doing better. Monitor CBC. --ECHO = no decrease LVEF --pulmonary toxicity either due to Herceptin or Taxol --dr. Hammond, pulmonology following --currently on Solu-medrol and Bactrim --V/Q scan in the emergency room which was low probability for pulmonary embolism. (2) Breast CA Status: Acute Plan: no further chemo. --started on weekly Herceptin and Taxol chemotherapy on July 15. Assessment 76y/o with triple positive left breast cancer admitted with respiratory insufficiency. Attending Statement no new c/o on 4 lit O2 switch solumedrol to prednisone The exam, history, and the medical decision-making described in the above note were completed with the assistance of the mid-level provider. I reviewed and agree with the findings presented. I attest that I had a [id number] encounter with the patient on the same day, and personally performed and documented my assessment and findings in the medical record. Giana Smiley Sep 07, 2016 08:18 Tiburcio Kirk MD Sep 08, 2016 00:54
[2016-09-07] MEDS: ONDANSETRON HCL 4 MG/2 ML VIAL IVP PRN ×2 (08:42→17:29)
[2016-09-07] MEDS: guaiFENesin E.R. 600 MG TAB PO SCH ×2 (08:43→20:50)
[2016-09-07] MEDS: FUROSEMIDE 20 MG/2 ML VIAL IV PUSH SCH (08:43)
[2016-09-07] MEDS: ATORVASTATIN 80 MG TAB PO SCH (08:43)
[2016-09-07] MEDS: SODIUM CHLORIDE 0.9% FLUSH 10 ML FLUSH IV FLUSH SCH ×2 (08:43→20:50)
[2016-09-07] MEDS: POLYETHYLENE GLYCOL 17 GM PKG PO SCH (08:43)
[2016-09-07] MEDS: DULoxetine HCl DR 60 MG CAP PO SCH (08:43)
[2016-09-07] MEDS: DOCUSATE SODIUM 50 MG/SENNA 8.6 MG TAB PO SCH ×2 (08:43→20:50)
[2016-09-07] MEDS: TOLTERODINE TARTRATE 2 MG CAP LA PO SCH (08:43)
[2016-09-07] MEDS: SODIUM CHLORIDE 0.9% FLUSH 10 ML FLUSH IV FLUSH PRN (08:43)
[2016-09-07] MEDS: PANTOPRAZOLE SOD 20 MG DELAYED RELEASE TAB PO SCH (08:43)
--- NOTE | 2016-09-07 09:00 | HHI.PR ---
Subjective Remarks on four liters of oxygen via N/C. however she says that she's overall improving. no fever. d/w the RN and no acute issues over night. Objective Vitals Vital Signs Date Time Temp Pulse Resp B/P Pulse Ox O2 Delivery O2 Flow Rate FiO2 09/07/16 06:00 88 09/07/16 04:00 93 Nasal Cannula 4.00 09/07/16 04:00 98.2 89 20 123/63 93 09/07/16 04:00 89 09/07/16 02:00 88 09/07/16 00:00 94 Nasal Cannula 5.00 09/07/16 00:00 98.2 95 22 130/61 94 09/07/16 00:00 95 09/06/16 22:00 100 09/06/16 21:01 93 Nasal Cannula 4.00 09/06/16 20:00 93 Nasal Cannula 4.00 09/06/16 20:00 102 09/06/16 20:00 98.2 102 29 130/68 93 09/06/16 18:00 105 09/06/16 17:00 97 26 120/65 96 09/06/16 16:00 97.6 95 30 133/63 96 09/06/16 16:00 96 Nasal Cannula 4.00 09/06/16 16:00 95 09/06/16 15:00 105 34 126/61 88 09/06/16 14:00 97 23 124/66 99 09/06/16 14:00 97 09/06/16 13:00 108 29 130/67 92 09/06/16 12:00 97.6 102 21 120/63 99 09/06/16 12:00 99 Nasal Cannula 4.00 09/06/16 12:00 102 09/06/16 11:00 120 29 128/67 91 09/06/16 10:00 126 09/06/16 10:00 115 28 146/63 91 09/06/16 09:00 99 30 118/82 I/O 09/06/16 09/06/16 09/06/16 09/07/16 09/07/16 09/07/16 07:00 15:00 23:00 07:00 15:00 23:00 Intake Total 214 ml 666 ml 342 ml 120 ml Output Total 1850 ml 450 ml 300 ml Balance 214 ml -1184 ml -108 ml -180 ml Intake Oral 0 ml 666 ml 342 ml 120 ml IV Total 214 ml 0 ml 0 ml Output Urine Total 1850 ml 450 ml 300 ml # Voids 0 0 # Bowel Movements 0 1 1 0 Result Diagram: 09/07/16 0352 09/07/16 0352 Imaging Last Impressions Chest CT 09/05/16 0000 Signed Impressions: Service Date/Time: Monday, September 05, 2016 15:04 - CONCLUSION: Background of diffuse ground glass opacity throughout both lungs with minimal peripheral consolidation all suggestive of an inflammatory process. Process has progressed from faint ground glass opacity on 08/26/16. Soy Harper MD FACR Chest X-Ray 09/04/16 0600 Signed Impressions: Service Date/Time: Sunday, September 04, 2016 02:58 - CONCLUSION: No significant interval change. Fito Agarwal MD Lung Scan-VQ Nuclear Medicine 08/26/16 0000 Signed Impressions: Service Date/Time: Friday, August 26, 2016 20:26 - CONCLUSION: 1. Low probability for pulmonary embolus. Checo Conner MD Objective Remarks GENERAL: in no apparent distress. CARDIOVASCULAR: Regular rate and regular rhythm without murmurs, gallops, or rubs. RESPIRATORY: basal crackles. GASTROINTESTINAL: Abdomen soft, non-tender, nondistended. Normal, active bowel sounds MUSCULOSKELETAL: Extremities without clubbing, cyanosis, or edema. NEURO: Alert & Oriented x4 to person, place, time, situation. Moves all ext x4 Medications and IVs Current Medications Iohexol 99 ml 99 ml STK-MED ONCE IV Last administered on 08/26/16 19:12; Start 08/26/16 at 19:12; Stop 08/26/16 at 19:13; Status DC Levofloxacin/ Dextrose (Levaquin 500 Mg Premix Inj) 100 ml @ 100 mls/hr ONCE ONCE IV Last administered on 08/26/16 19:22; Start 08/26/16 at 19:15; Stop at 20:14; Status DC Albuterol/ Ipratropium (Duoneb Neb) 1 ampule Q4HR NEB PRN NEB SOB/WHEEZING Last administered on 08/28/16 11:58; Start 08/26/16 at 20:00; Stop 08/28/16 at 12:35; Status DC Budesonide/ Formoterol Fumarate (Symbicort 160-4.5 Inh) 2 puff Q12HR INH Last administered on 08/29/16 09:12; Start 08/26/16 at 21:00; Stop 08/29/16 at 11:48 ; Status DC Guaifenesin 600 mg 600 mg BID PO Last administered on 09/07/16 08:43; Start at 21:00 Sodium Chloride (NS 1000 ml Inj) 1,000 ml @ 100 mls/hr Q10H IV Last administered on 08/27/16 05:03; Start 08/26/16 at 19:49; Stop 08/27/16 at 14:50 ; Status DC Sodium Chloride (NS Flush) 2 ml UNSCH PRN IV FLUSH FLUSH AFTER USING IV ACCESS Last administered on 09/07/16 08:43; Start 08/26/16 at 20:00 Sodium Chloride (NS Flush) 2 ml BID IV FLUSH Last administered on 09/07/16 08: 43; Start 08/26/16 at 21:00 Ondansetron HCl (Zofran Inj) 4 mg Q6H PRN IVP NAUSEA OR VOMITING Last administered on 09/07/16 08:42; Start 08/26/16 at 20:00 Heparin Sodium (Porcine) (Heparin Inj) 5,000 units Q8H SQ Last administered on 09/07/16 05:51; Start 08/26/16 at 20:00 Acetaminophen (Tylenol) 650 mg Q6H PRN PO FEVER/PAIN SCALE 1 TO 2 Last administered on 08/30/16 01:45; Start 08/26/16 at 20:00 Acetaminophen/ Hydrocodone Bitart ([place] 5-325 Mg) 1 tab Q4H PRN PO PAIN SCALE 3 TO 5; Start 08/26/16 at 20:00 Morphine Sulfate (Morphine Inj) 2 mg Q3H PRN IV Pain 6-10; Start 08/26/16 at 20: 00 Senna/Docusate Sodium (Letty-Colace) 1 tab BID PO Last administered on 08:43; Start 08/26/16 at 21:00 Magnesium Hydroxide (Milk Of Magnesia Liq) 30 ml Q12H PRN PO MILD - MODERATE CONSTIPATION; Start 08/26/16 at 20:00 Sennosides (Senokot) 17.2 mg Q12H PRN PO MODERATE - SEVERE CONSTIPATION; Start 08/26/16 at 20:00 Bisacodyl (Dulcolax Supp) 10 mg DAILY PRN RECTAL SEVERE CONSITIPATION; Start at 20:00 Lactulose 30 ml 30 ml DAILY PRN PO SEVERE CONSITIPATION Last administered on 09:06; Start 08/26/16 at 20:00 Levofloxacin/ Dextrose (Levaquin 750 Mg Premix Inj) 150 ml @ 100 mls/hr Q24H IV Last administered on 09/05/16 21:13; Start 08/27/16 at 21:00; Stop at 17:38; Status DC Duloxetine HCl (Cymbalta Dr) 60 mg DAILY PO Last administered on 09/07/16 08: 43; Start 08/27/16 at 09:00 Atorvastatin Calcium (Lipitor) 80 mg DAILY PO Last administered on 09/07/16 08 :43; Start 08/27/16 at 09:00 Tolterodine Tartrate (Detrol La) 2 mg DAILY PO Last administered on 09/07/16 08:43; Start 08/27/16 at 09:00 Furosemide (Lasix Inj) 40 mg STAT ONCE IV PUSH Last administered on 08/28/16 10:34; Start 08/28/16 at 10:30; Stop 08/28/16 at 10:31; Status DC Enalaprilat (Vasotec Inj) 1.25 mg Q6H PRN IV SBP> OR = 180, DBP> OR = 100; Start 08/28/16 at 10:30 Albuterol/ Ipratropium (Duoneb Neb) 1 ampule Q4HR NEB NEB Last administered on 08/29/16 10:56; Start 08/28/16 at 16:00; Stop 08/29/16 at 11:48; Status DC Albuterol/ Ipratropium (Duoneb Neb) 1 ampule Q2HR NEB PRN NEB SHORTNESS OF BREATH; Start 08/28/16 at 12:30 Methylprednisolone Sodium Succinate (SoluMEDROL INJ) 60 mg Q6HR IV PUSH Last administered on 08/28/16 12:43; Start 08/28/16 at 12:30; Stop 08/28/16 at 16:28 ; Status DC Dextrose (D50w (Vial) Inj) 50 ml UNSCH PRN IV HYPOGLYCEMIA-SEE COMMENTS; Start 08/28/16 at 12:30 Glucagon (Glucagon Inj) 1 mg UNSCH PRN OTHER HYPOGLYCEMIA-SEE COMMENTS; Start 08/28/16 at 12:30 Insulin Human Regular (NovoLIN R SUPPLEMENTAL SCALE) 1 Q6HR SQ Last administered on 09/01/16 11:58; Start 08/28/16 at 12:30; Stop 09/01/16 at 13:05 ; Status DC Methylprednisolone Sodium Succinate 40 mg 40 mg Q8HR IV Last administered on 05:14; Start 08/28/16 at 22:00; Stop 08/29/16 at 11:48; Status DC Potassium Chloride 100 ml @ 50 mls/hr Q2H PRN IV For Potassium 2.8 - 3.2 mEq/L ; Start 08/28/16 at 16:30 Potassium Chloride (KCl 20 Meq Premix Inj) 100 ml @ 50 mls/hr Q2H PRN IV For Potassium 2.8 - 3.2 mEq/L; Start 08/28/16 at 16:30 Potassium Bicarb/ Potassium Chloride 50 meq 50 meq UNSCH PRN PO For Potassium 3.3 - 3.5 mEq/L; Start 08/28/16 at 16:30 Potassium Chloride 100 ml @ 25 mls/hr UNSCH PRN IV For Potassium 3.3 - 3.5 mEq /L; Start 08/28/16 at 16:30 Potassium Chloride 100 ml @ 50 mls/hr Q2H PRN IV For Potassium 3.3 - 3.5 mEq/L ; Start 08/28/16 at 16:30 Magnesium Sulfate/ Sodium Chloride (Magnesium Sulfate Inj/NS Inj) 100 ml @ 50 mls/hr UNSCH PRN IV For Magnesium 0.9 - 1.1 mg/dL; Start 08/28/16 at 16:30 Magnesium Oxide 800 mg 800 mg UNSCH PRN PO For Magnesium 1.2 - 1.6 mg/dL; Start 08/28/16 at 16:30 Magnesium Sulfate/ Sodium Chloride (Magnesium Sulfate Inj/NS Inj) 100 ml @ 50 mls/hr UNSCH PRN IV For Magnesium 1.2 - 1.6 mg/dL; Start 08/28/16 at 16:30 Potassium Phosphate 2000 mg 2,000 mg Q4H PRN PO For Phosphorus < 2.5 mg/dL Last administered on 09/06/16 14:29; Start 08/28/16 at 16:30 Sodium Phosphate/ Sodium Chloride (Sodium Phosphate Inj/NS 250 ml Inj) 250 ml @ 42 mls/hr UNSCH PRN IV For Phosphorus < 2.5 mg/dL; Start 08/28/16 at 16:30 Potassium Phosphate 2000 mg 2,000 mg UNSCH PRN PO/TUBE SEE LABEL COMMENTS; Start 08/28/16 at 16:30 Potassium Phosphate/Sodium Chloride (Potassium Phosphate Inj/NS 250 ml Inj) 260 ml @ 42 mls/hr UNSCH PRN IV SEE LABEL COMMENTS; Start 08/28/16 at 16:30 Miscellaneous Information Patient in critical care unit? Ass... [id number] .[id number] ; Start 08/28/16 at 19:30 Chlorhexidine Gluconate (Chlorhexidine 2% Cloth) 3 pack DAILY@04 TOPICAL Last administered on 09/02/16 04:00; Start 08/29/16 at 04:00; Stop 09/02/16 at 04:01 ; Status DC Chlorhexidine Gluconate (Chlorhexidine 2% Cloth) 3 pack UNSCH PRN TOPICAL HYGIENIC CARE; Start 08/28/16 at 19:30; Stop 09/02/16 at 19:28; Status DC Albuterol/ Ipratropium (Duoneb Neb) 1 ampule TID NEB NEB Last administered on 09/05/16 07:58; Start 08/29/16 at 14:00; Stop 09/05/16 at 12:37; Status DC Methylprednisolone Sodium Succinate (SoluMEDROL INJ) 60 mg Q8HR IV Last administered on 09/06/16 14:28; Start 08/29/16 at 14:00; Stop 09/06/16 at 17:38 ; Status DC Pantoprazole Sodium (Protonix) 20 mg DAILY PO Last administered on 09/07/16 08 :43; Start 08/29/16 at 11:45 Insulin Human Regular (NovoLIN R SUPPLEMENTAL SCALE) 1 ACHS SQ Last administered on 09/06/16 21:00; Start 6/15/17 at 16:00 Polyethylene Glycol (Miralax) 17 gm DAILY PO ; Start 09/02/16 at 09:00 Polyethylene Glycol (Miralax) 17 gm ONCE ONCE PO ; Start 09/01/16 at 13:15; Stop 09/01/16 at 13:16; Status DC Potassium Chloride (KCl) 20 meq ONCE ONCE PO Last administered on 09/03/16 14 :10; Start 09/03/16 at 13:00; Stop 09/03/16 at 13:04; Status DC Furosemide (Lasix Inj) 40 mg ONCE ONCE IV PUSH Last administered on 09/05/16 11:07; Start 09/05/16 at 11:00; Stop 09/05/16 at 11:02; Status DC Furosemide (Lasix Inj) 20 mg BID@,18 IV PUSH ; Start 09/06/16 at 09:00; Stop 09/06/16 at 09:00; Status DC Albuterol/ Ipratropium (Duoneb Neb) 1 ampule BID NEB NEB Last administered on 09/06/16 20:59; Start 09/05/16 at 20:00 Furosemide (Lasix Inj) 20 mg DAILY IV PUSH Last administered on 09/07/16 08:43 ; Start 09/06/16 at 09:00 Trimethoprim/ Sulfamethoxazole (Bactrim Ds 800-160 Mg) 1 tab Q24H PO Last administered on 09/06/16 14:29; Start 09/05/16 at 13:00 Methylprednisolone Sodium Succinate (SoluMEDROL INJ) 60 mg Q12H IV Last administered on 09/07/16 02:14; Start 09/07/16 at 02:00 Date of Removal: Sep 04, 2016 A/P Assessment and Plan A/P Acute hypoxemic respiratory failure- improving Extensive ground-glass opacities. Ddx: hypersensitivity pneumonitis vs chemotherapy induced pulmonary toxicity/ interstitial pneumonitis versus other causes of valvulitis Currently on four lites of oxygen via N/C continue with neb treatment continue Solu-Medrol 60 mg IV every [address] chest/not PE study 08/29 revealed extensive bilateral ground glass opacification Followed by Dr. Schultz/pulmonology will do walk test prior to DC if qualifies for home 02 Triple positive left breast cancer status post Herceptin scan and Taxol 07/15 weekly chemotherapy Normocytic anemia Leukocytosis Monitor CBC daily. Follow trends Patient is afebrile and symptom improvement. leukocytosis likely due to steroids Dyslipidemia Stage I diastolic dysfunction currently on Lipitor 80 mg by mouth at bedtime for dyslipidemia 2-D echo revealed EF 55%. Stage I diastolic dysfunction. Mild MR. Depression Continue Cymbalta 60 mg by mouth daily for depression Continue [place] for pain management good family support Incontinence Continue Detrol LA 2 mg by mouth daily Prophylaxis - GI - Protonix - DVT - SCD/heparin subcutaneous for transfer to floor. continue PT. d/w the RN. Nova Castaneda MD Sep 07, 2016 09:00 Nova Castaneda MD Sep 07, 2016 09:00
[2016-09-07 09:43] LABS: BANDS 7 % (0-6); MYELOCYTES 9 % (0-0); NEUTROPHIL # MANUAL DIFF 19.1 TH/MM3 (1.8-7.7); POLYS (SEG NEUTROPHILS) 77 % (16-70); WBC DIFF SAMPLE 100
[2016-09-07 09:44] LABS: OVALOCYTES 1+ (NORMAL); PLATELET ESTIMATE SMEAR NORMAL (NORMAL); PLATELET MORPHOLOGY NORMAL (NORMAL); SCAN/DIFF FINAL DIFF MANUAL
[2016-09-07] MEDS: RESP: ALBUTEROL 2.5 MG/IPRATROPIUM 0.5 MG NEB (SCH) NEB ×2 (11:08→20:03)
[2016-09-07] MEDS: SULFAMETHOXAZOLE-TRIMETHOPRIM DS 800-160 MG TAB PO SCH (11:41)
[2016-09-07] MEDS: methylPREDNISolone SOD SUCC 125 MG/2 ML VIAL IV SCH (14:11)
[2016-09-08] VITALS (16 sets, daily range): BP systolic 123–134; BP diastolic 64–75; PULSE 88–111; RESP 20–36; TEMP 98.2–98.7; O2SAT 86–97
[2016-09-08] MEDS: methylPREDNISolone SOD SUCC 125 MG/2 ML VIAL IV SCH (03:05)
[2016-09-08] MEDS: HEPARIN SODIUM - SQ 10,000 UNITS/ML VIAL SQ SCH ×3 (03:06→20:54)
[2016-09-08 06:04] LABS: AUTOMATED NEUTROPHIL # 21.2 TH/MM3 (1.8-7.7); EOSINOPHIL % 0.1 % (0.0-4.0); HEMATOCRIT 36.3 % (35.0-46.0); LYMPH % 4.7 % (9.0-44.0); LYMPHOCYTE # 1.2 TH/MM3 (1.0-4.8); MEAN CELL VOLUME 84.6 FL (80.0-100.0); MEAN CORPUSCULAR HEMOGLOBIN 27.1 PG (27.0-34.0); NEUT % 85.2 % (16.0-70.0); PLATELET COUNT 256 TH/MM3 (150-450); RED BLOOD COUNT 4.29 MIL/MM3 (4.00-5.30); RED CELL DISTRIBUTION WIDTH 16.4 % (11.6-17.2); WHITE BLOOD COUNT 24.9 TH/MM3 (4.0-11.0)
[2016-09-08 06:18] LABS: HEMO FLAGS AUTO DIFF
[2016-09-08] MEDS: INSULIN NovoLIN REGULAR SUPPLEMENTAL SCALE SQ SCH ×4 (06:35→20:59)
[2016-09-08 08:05] LABS: BANDS 7 % (0-6); MYELOCYTES 4 % (0-0); NEUTROPHIL # MANUAL DIFF 21.7 TH/MM3 (1.8-7.7); OVALOCYTES 1+ (NORMAL); POLYS (SEG NEUTROPHILS) 76 % (16-70); WBC DIFF SAMPLE 100
[2016-09-08 08:06] LABS: PLATELET ESTIMATE SMEAR NORMAL (NORMAL); PLATELET MORPHOLOGY ENLARGED (NORMAL); SCAN/DIFF FINAL DIFF MANUAL
[2016-09-08] MEDS: RESP: ALBUTEROL 2.5 MG/IPRATROPIUM 0.5 MG NEB (SCH) NEB (08:08)
[2016-09-08] MEDS: POLYETHYLENE GLYCOL 17 GM PKG PO SCH (09:00)
[2016-09-08] MEDS: DOCUSATE SODIUM 50 MG/SENNA 8.6 MG TAB PO SCH ×2 (09:00→20:54)
[2016-09-08] MEDS: ONDANSETRON HCL 4 MG/2 ML VIAL IVP PRN ×2 (09:20→19:34)
[2016-09-08] MEDS: ATORVASTATIN 80 MG TAB PO SCH (09:22)
[2016-09-08] MEDS: guaiFENesin E.R. 600 MG TAB PO SCH ×2 (09:22→20:54)
[2016-09-08] MEDS: PANTOPRAZOLE SOD 20 MG DELAYED RELEASE TAB PO SCH (09:22)
[2016-09-08] MEDS: DULoxetine HCl DR 60 MG CAP PO SCH (09:22)
[2016-09-08] MEDS: TOLTERODINE TARTRATE 2 MG CAP LA PO SCH (09:22)
[2016-09-08] MEDS: FUROSEMIDE 20 MG/2 ML VIAL IV PUSH SCH (09:23)
[2016-09-08] MEDS: SODIUM CHLORIDE 0.9% FLUSH 10 ML FLUSH IV FLUSH SCH ×2 (09:23→20:54)
--- NOTE | 2016-09-08 11:27 | HHI.PR ---
Subjective Remarks Anesthesia Director Notes: The patient is a 76 year-old female with past medical history of left-sided breast cancer diagnosed in April of 2016, currently on chemotherapy in the form of Taxol and Herceptin. She was admitted to [facility] on August 26 under the hospitalist service after she was sent to the ER by her oncologist, Dr. Kirk, secondary to hypoxemia following chemotherapy. She was noted to have O2 saturation of 75% on room air and upon EMS arrival she was placed on 4 liters oxygen when her saturation improved to 92%. She underwent a VQ scan of the chest which showed low probability for pulmonary embolism and chest x-ray showed mild interstitial prominence suggesting vascular congestion or volume overload. The patient underwent CTA of the chest as well which showed no evidence of pulmonary embolism, however, it showed extensive ground-glass opacities and questionable pulmonary fibrosis per report. The patient reported progressive worsening of shortness of breath for the past one week prior to admission. She denies any chest pain, shortness of breath, cough, or any constitutional symptoms. In addition she denies any exposure to sick contacts. She has been receiving chemotherapy every Monday for the past 7 weeks and is being followed by Dr. Kirk, the patient's oncologist. The patient denies any use of oxygen at home and she is a nonsmoker. She has been requiring increased O2 and was subsequently transferred to ICU. Critical care medicine was consulted for critical care management. The patient is also being followed by Dr. Hammond from pulmonary service, Dr. Louie from cardiology. ABG was performed at 04:27 this morning which showed pH of 7.41, CO2 37, pAO2 59, bicarb 23, sats of 88% on 9 liter simple mask. Chest x-ray from this morning showed increase in bilateral interstitial opacities. The patient has been placed on a non-rebreather and she was given Lasix 40 mg IV push at 10:34 this morning. The patient denies any nausea, vomiting, abdominal pain. In addition she denies any orthopnea, PND or edema of lower extremities. 08/29 No acute events overnight. On High flow oxygen with 70% FIO2. Afebrile. 08/30 Patient remains on high flow oxygen with good sats. CXR this morning no significant changes. 08/31 No events overnight. On high flow NC 25L with 75%FIO2, Afebrile. 09/01: Remains on high flow nasal cannula 30 L 65%. Afebrile. Mentating fine. Denies shortness of breath currently. 09/02: Afebrile. FiO2 down to 50%. 25 L. We'll attempt to get out of bed to chair daily. Tolerating diet. Positive BM. 09/03: Down to 4 L nasal cannula. Appears much improved. Bit itchy yesterday tolerating well. Tolerating diet. Hospitalist Notes: 09/08: Patient seen in her bedroom, asked by Nurse And Charge nurse to evaluate the patient and probable discharge, no new records in ERM by any specialist asked for six minute walk for discharge, no nausea, vomit or diarrhea, then seen by claim benefit specialist not clear for discharge yet. Objective Vital Signs Date Time Temp Pulse Resp B/P Pulse Ox O2 Delivery O2 Flow Rate FiO2 09/08/16 08:09 90 Nasal Cannula 3.00 09/08/16 06:00 88 09/08/16 04:00 98.7 91 21 134/75 97 09/08/16 04:00 91 09/08/16 04:00 97 Nasal Cannula 4.00 09/08/16 02:00 95 09/08/16 00:00 98.7 101 27 128/72 96 09/08/16 00:00 96 Nasal Cannula 4.00 09/08/16 00:00 101 09/07/16 22:00 101 09/07/16 20:03 96 Nasal Cannula 3.00 09/07/16 20:00 97 Nasal Cannula 4.00 09/07/16 20:00 94 09/07/16 20:00 98.8 94 26 130/65 97 09/07/16 18:00 97 09/07/16 18:00 97 28 131/68 96 09/07/16 17:00 93 09/07/16 16:00 98.3 96 29 127/63 97 09/07/16 16:00 96 09/07/16 16:00 97 Nasal Cannula 4.00 09/07/16 15:00 98 09/07/16 14:09 108 32 124/67 93 09/07/16 14:09 108 09/07/16 14:00 120 32 09/07/16 14:00 120 09/07/16 13:00 108 29 124/69 91 09/07/16 13:00 108 09/07/16 12:00 98 Nasal Cannula 4.00 09/07/16 12:00 100 09/07/16 12:00 98.2 100 26 125/60 98 I/O 09/07/16 09/07/16 09/07/16 09/08/16 09/08/16 09/08/16 07:00 15:00 23:00 07:00 15:00 23:00 Intake Total 120 ml 800 ml 100 ml 50 ml Output Total 300 ml 1650 ml 450 ml 250 ml Balance -180 ml -850 ml -350 ml -200 ml Intake Oral 120 ml 800 ml 100 ml 50 ml IV Total 0 ml Output Urine Total 300 ml 1650 ml 450 ml 250 ml # Bowel Movements 0 1 Result Diagram: 09/08/16 0527 09/07/16 0352 Imaging Last Impressions Chest CT 09/05/16 0000 Signed Impressions: Service Date/Time: Monday, September 05, 2016 15:04 - CONCLUSION: Background of diffuse ground glass opacity throughout both lungs with minimal peripheral consolidation all suggestive of an inflammatory process. Process has progressed from faint ground glass opacity on 08/26/16. Soy Harper MD FACR Chest X-Ray 09/04/16 0600 Signed Impressions: Service Date/Time: Sunday, September 04, 2016 02:58 - CONCLUSION: No significant interval change. Fito Agarwal MD Lung Scan- Nuclear Medicine 08/26/16 0000 Signed Impressions: Service Date/Time: Friday, August 26, 2016 20:26 - CONCLUSION: 1. Low probability for pulmonary embolus. Checo Conner MD Procedures None Other Results Laboratory Tests Test 09/04/16 09/05/16 09/06/16 09/07/16 05:04 12:27 05:00 03:52 B-Type Natriuretic Peptide 11 PG/ML Nucleated Red Blood Cells 1 /100 WBC Metamyelocytes 1 % Red Cell Morphology Comment NORMAL Hematology Comments Sodium Level 136 MEQ/L Potassium Level 4.5 MEQ/L Chloride Level 100 MEQ/L Carbon Dioxide Level 29.5 MEQ/L Anion Gap 7 MEQ/L Blood Urea Nitrogen 17 MG/DL Creatinine 0.66 MG/DL Estimat Glomerular Filtration 87 ML/MIN Rate Random Glucose 107 MG/DL Calcium Level 8.5 MG/DL Phosphorus Level 2.8 MG/DL Magnesium Level 2.4 MG/DL Total Bilirubin 0.5 MG/DL Aspartate Amino Transf 26 U/L (AST/SGOT) Alanine Aminotransferase 41 U/L (ALT/SGPT) Alkaline Phosphatase 62 U/L Total Protein 5.6 GM/DL Albumin 2.6 GM/DL Test 09/08/16 05:27 White Blood Count 24.9 TH/MM3 Red Blood Count 4.29 MIL/MM3 Hemoglobin 11.6 GM/DL Hematocrit 36.3 % Mean Corpuscular Volume 84.6 FL Mean Corpuscular Hemoglobin 27.1 PG Mean Corpuscular Hemoglobin 32.0 % Concent Red Cell Distribution Width 16.4 % Platelet Count 256 TH/MM3 Mean Platelet Volume 9.5 FL Neutrophils (%) (Auto) 85.2 % Lymphocytes (%) (Auto) 4.7 % Monocytes (%) (Auto) 10.0 % Eosinophils (%) (Auto) 0.1 % Basophils (%) (Auto) 0.0 % Neutrophils # (Auto) 21.2 TH/MM3 Lymphocytes # (Auto) 1.2 TH/MM3 Monocytes # (Auto) 2.5 TH/MM3 Eosinophils # (Auto) 0.0 TH/MM3 Basophils # (Auto) 0.0 TH/MM3 CBC Comment AUTO DIFF Differential Total Cells 100 Counted Neutrophils % (Manual) 76 % Band Neutrophils % 7 % Lymphocytes % 3 % Monocytes % 10 % Neutrophils # (Manual) 21.7 TH/MM3 Myelocytes 4 % Differential Comment FINAL DIFF MANUAL Platelet Estimate NORMAL Platelet Morphology Comment ENLARGED Ovalocytes 1+ Objective Remarks GENERAL: 76-year-old female, sitting up in bed in no acute distress on nasal cannula SKIN: Warm and dry. No rash HEAD: Normocephalic. EYES: No scleral icterus. No injection or drainage. NECK: Supple, trachea midline. No JVD or lymphadenopathy. CARDIOVASCULAR: Regular rate and rhythm without murmurs, gallops, or rubs. RESPIRATORY: Coarse crackles appreciated throughout lung acosta anterior- posterior. No wheeze GASTROINTESTINAL: Abdomen soft, non-tender, nondistended. Hypoactive bowel sounds MUSCULOSKELETAL: No significant peripheral edema. BACK: Nontender without obvious deformity. No CVA tenderness. Medications and IVs Current Medications Medications (Trade) Dose Ordered Sig/Aurelia Route Start Time Stop Time Status Last Admin (Mucinex Er) 600 mg BID PO 08/26/16 21:00 09/08/16 09:22 (NS Flush) 2 ml UNSCH PRN IV FLUSH 08/26/16 20:00 09/07/16 08:43 (NS Flush) 2 ml BID IV FLUSH 08/26/16 21:00 09/08/16 09:23 (Zofran Inj) 4 mg Q6H PRN IVP 08/26/16 20:00 09/08/16 09:20 (Heparin Inj) 5,000 units Q8H SQ 08/26/16 20:00 09/08/16 03:06 (Tylenol) 650 mg Q6H PRN PO 08/26/16 20:00 08/30/16 01:45 (Bucklin 5-325 Mg) 1 tab Q4H PRN PO 08/26/16 20:00 (Morphine Inj) 2 mg Q3H PRN IV 08/26/16 20:00 (Letty-Colace) 1 tab BID PO 08/26/16 21:00 09/07/16 08:43 (Milk Of Magnesia Liq) 30 ml Q12H PRN PO 08/26/16 20:00 (Senokot) 17.2 mg Q12H PRN PO 08/26/16 20:00 (Dulcolax Supp) 10 mg DAILY PRN RECTAL 08/26/16 20:00 (Lactulose Liq) 30 ml DAILY PRN PO 08/26/16 20:00 09/01/16 09:06 (Cymbalta Dr) 60 mg DAILY PO 08/27/16 09:00 09/08/16 09:22 (Lipitor) 80 mg DAILY PO 08/27/16 09:00 09/08/16 09:22 (Detrol La) 2 mg DAILY PO 08/27/16 09:00 09/08/16 09:22 (Vasotec Inj) 1.25 mg Q6H PRN IV 08/28/16 10:30 (D50w (Vial) Inj) 50 ml UNSCH PRN IV 08/28/16 12:30 (Glucagon Inj) 1 mg UNSCH PRN OTHER 08/28/16 12:30 Miscellaneous Information Patient in critical care unit? Ass... Q361D .XX 08/28/16 19:30 (Protonix) 20 mg DAILY PO 08/29/16 11:45 09/08/16 09:22 (NovoLIN R SUPPLEMENTAL SCALE) 1 ACHS SQ 09/01/16 16:00 09/06/16 21:00 (Miralax) 17 gm DAILY PO 09/02/16 09:00 (Lasix Inj) 20 mg DAILY IV PUSH 09/06/16 09:00 09/08/16 09:23 (Bactrim Ds 800-160 Mg) 1 tab Q24H PO 09/05/16 13:00 09/07/16 11:41 (SoluMEDROL INJ) 40 mg Q12H IV 09/07/16 14:00 09/08/16 03:05 A/P Assessment and Plan Acute hypoxemic respiratory failure- improving Extensive ground-glass opacities. Ddx: hypersensitivity pneumonitis vs chemotherapy induced pulmonary toxicity/ interstitial pneumonitis versus other causes of valvulitis Continue Oxygen by NC, asked for six minute walk for discharge on Oxygen Bronchodilator, Mucolytic and incentive spirometry, Bactrim. Steroids IV to by mouth for discharge. CT chest/not PE study 08/29 revealed extensive bilateral ground glass opacification Triple positive left breast cancer status post Herceptin scan and Taxol 07/15 weekly chemotherapy Normocytic anemia Leukocytosis Monitor CBC daily. Follow trends Patient is afebrile and symptom improvement. leukocytosis likely due to steroids Dyslipidemia Stage I diastolic dysfunction currently on Lipitor 80 mg by mouth at bedtime for dyslipidemia 2-D echo revealed EF 55%. Stage I diastolic dysfunction. Mild MR. Depression Continue Cymbalta 60 mg by mouth daily for depression Continue Bucklin for pain management good family support Urinary Incontinence Continue Detrol LA 2 mg by mouth daily Prophylaxis - GI - Protonix - DVT - SCD/heparin subcutaneous for transfer to floor. continue PT. d/w the RN. Discharge Planning Once cleared for Discharge by claim benefit specialist. Himanshu Jimenez MD Sep 08, 2016 11:27
[2016-09-08] MEDS ORDERED: SYMB160A INH (11:45)
[2016-09-08] MEDS ORDERED: PANT20 PO (11:45)
[2016-09-08] MEDS ORDERED: PRED10 PO (11:45)
[2016-09-08] MEDS ORDERED: guaiFENesin ER PO (11:45)
[2016-09-08] MEDS ORDERED: HYDR-3516 PO (11:45)
[2016-09-08] MEDS ORDERED: FURO1TAB60 PO (11:45)
--- NOTE | 2016-09-08 11:45 | HHI.FF ---
Face to Face Verification Diagnosis: (1) Interstitial lung disease (2) Acute respiratory failure Physical Therapy Order: Evaluate and Treat, Improve ambulation, Strength and gait training Home Health Nursing Order: Medical education Signs/symptoms of disease process Oxygen administration education Medication education-adverse effect Nursing assessment with vital signs I have seen patient Romy Valverde on 09/08/16. My clinical findings support the need for the requested home health care services because: Ltd mobility - disease progression Deconditioned w/ increased weakness I certify that my clinical findings support that this patient is homebound because: Unsafe to leave home unassisted Himanshu Jimenez MD Sep 08, 2016 11:45
[2016-09-08] MEDS: SULFAMETHOXAZOLE-TRIMETHOPRIM DS 800-160 MG TAB PO SCH (12:08)
--- NOTE | 2016-09-08 13:27 | RADRPT ---
EXAM DATE/TIME: 09/08/2016 13:02 [place] COMPARISON: CT THORAX W/O CONTRAST, September 05, 2016, 15:04. CHEST SINGLE AP, September 04, 2016, 2:58. INDICATIONS : Pneumonitis. MEDICAL HISTORY : Carcinoma, breast. SURGICAL HISTORY : Port placement. ENCOUNTER: Subsequent ACUITY: 2 weeks PAIN SCORE: 0/10 LOCATION: Bilateral chest FINDINGS: The [id number] is in satisfactory position. The heart is normal in size. There is advanced interstitial fibrotic change distributed throughout both lungs. This is relatively unchanged compared to prior exam. Thereafter degenerative changes throughout the spine. CONCLUSION: Diffuse interstitial prominence suggesting interstitial lung disease. Vance Harper MD on September 08, 2016 at 13:20 Board Certified Radiologist. This report was verified electronically.
--- NOTE | 2016-09-08 14:59 | PD.ONC.PN ---
Subjective Subjective Remarks Afebrile overnight. Pt sitting up in chair with at bedside Still get SOB with activity Overall feeling and breathing much better Objective Data Date Time Temp Pulse Resp B/P Pulse Ox O2 Delivery O2 Flow Rate FiO2 09/08/16 14:37 4.00 09/08/16 14:00 104 09/08/16 12:00 98.2 103 20 130/72 93 09/08/16 12:00 93 Nasal Cannula 4.00 09/08/16 12:00 103 09/08/16 11:49 3.50 09/08/16 10:00 108 09/08/16 08:09 90 Nasal Cannula 3.00 09/08/16 08:00 98.2 92 21 130/72 93 09/08/16 08:00 93 Nasal Cannula 09/08/16 08:00 92 09/08/16 06:00 88 09/08/16 04:00 98.7 91 21 134/75 97 09/08/16 04:00 91 09/08/16 04:00 97 Nasal Cannula 4.00 09/08/16 02:00 95 09/08/16 00:00 98.7 101 27 128/72 96 09/08/16 00:00 96 Nasal Cannula 4.00 09/08/16 00:00 101 09/07/16 22:00 101 09/07/16 20:03 96 Nasal Cannula 3.00 09/07/16 20:00 97 Nasal Cannula 4.00 09/07/16 20:00 94 09/07/16 20:00 98.8 94 26 130/65 97 09/07/16 18:00 97 09/07/16 18:00 97 28 131/68 96 09/07/16 17:00 93 09/07/16 16:00 98.3 96 29 127/63 97 09/07/16 16:00 96 09/07/16 16:00 97 Nasal Cannula 4.00 09/07/16 15:00 98 09/08/16 09/08/16 09/08/16 07:00 15:00 23:00 Intake Total 50 ml Output Total 250 ml Balance -200 ml Result Diagram: 09/08/16 0527 09/07/16 0352 Laboratory Results Laboratory Tests Test 09/08/16 05:27 White Blood Count 24.9 TH/MM3 Red Blood Count 4.29 MIL/MM3 Hemoglobin 11.6 GM/DL Hematocrit 36.3 % Mean Corpuscular Volume 84.6 FL Mean Corpuscular Hemoglobin 27.1 PG Mean Corpuscular Hemoglobin 32.0 % Concent Red Cell Distribution Width 16.4 % Platelet Count 256 TH/MM3 Mean Platelet Volume 9.5 FL Neutrophils (%) (Auto) 85.2 % Lymphocytes (%) (Auto) 4.7 % Monocytes (%) (Auto) 10.0 % Eosinophils (%) (Auto) 0.1 % Basophils (%) (Auto) 0.0 % Neutrophils # (Auto) 21.2 TH/MM3 Lymphocytes # (Auto) 1.2 TH/MM3 Monocytes # (Auto) 2.5 TH/MM3 Eosinophils # (Auto) 0.0 TH/MM3 Basophils # (Auto) 0.0 TH/MM3 CBC Comment AUTO DIFF Differential Total Cells 100 Counted Neutrophils % (Manual) 76 % Band Neutrophils % 7 % Lymphocytes % 3 % Monocytes % 10 % Neutrophils # (Manual) 21.7 TH/MM3 Myelocytes 4 % Differential Comment FINAL DIFF MANUAL Platelet Estimate NORMAL Platelet Morphology Comment ENLARGED Ovalocytes 1+ Imaging Studies Last 24 hours Impressions Chest X-Ray 09/08/16 0000 Signed Impressions: Service Date/Time: August 13:02 - CONCLUSION: Diffuse interstitial prominence suggesting interstitial lung disease. Vance Harper MD Administered Medications Medications (Trade) Dose Ordered Sig/Aurelia Route PRN Reason Start Time Stop Time Status Last Admin Dose Admin Guaifenesin (Mucinex Er) 600 mg BID PO 08/26/16 21:00 09/08/16 09:22 Sodium Chloride (NS Flush) 2 ml UNSCH PRN IV FLUSH FLUSH AFTER USING IV ACCESS 08/26/16 20:00 09/07/16 08:43 Sodium Chloride (NS Flush) 2 ml BID IV FLUSH 08/26/16 21:00 09/08/16 09:23 Ondansetron HCl (Zofran Inj) 4 mg Q6H PRN IVP NAUSEA OR VOMITING 08/26/16 20:00 09/08/16 09:20 Heparin Sodium (Porcine) (Heparin Inj) 5,000 units Q8H SQ 08/26/16 20:00 09/08/16 12:08 Acetaminophen (Tylenol) 650 mg Q6H PRN PO FEVER/PAIN SCALE 1 TO 2 6/9/17 20:00 08/30/16 01:45 Senna/Docusate Sodium (Letty-Colace) 1 tab BID PO 08/26/16 21:00 09/07/16 08:43 Lactulose (Lactulose Liq) 30 ml DAILY PRN PO SEVERE CONSITIPATION 08/26/16 20:00 09/01/16 09:06 Duloxetine HCl (Cymbalta Dr) 60 mg DAILY PO 08/27/16 09:00 09/08/16 09:22 Atorvastatin Calcium (Lipitor) 80 mg DAILY PO 08/27/16 09:00 09/08/16 09:22 Tolterodine Tartrate (Detrol La) 2 mg DAILY PO 08/27/16 09:00 09/08/16 09:22 Pantoprazole Sodium (Protonix) 20 mg DAILY PO 08/29/16 11:45 09/08/16 09:22 Insulin Human Regular (NovoLIN R SUPPLEMENTAL SCALE) 1 ACHS SQ 09/01/16 16:00 09/08/16 11:00 Trimethoprim/ Sulfamethoxazole (Bactrim Ds 800-160 Mg) 1 tab Q24H PO 09/05/16 13:00 09/08/16 12:08 Objective Remarks GENERAL: Elderly female, sitting up in chair at bedside in no distress. SKIN: Warm and dry. No oozing from lines. HEAD: Normocephalic. EYES: No injection or drainage. NECK: Supple, trachea midline. CARDIOVASCULAR: +S1/S2, tachy. RESPIRATORY: Few crackles posteriorly. GASTROINTESTINAL: Abdomen soft, non-tender, nondistended. EXTREMITIES: No cyanosis. No edema. NEUROLOGICAL: A&Ox3. Normal speech. Moving all extremities. Assessment/Plan Problem List: (1) Hypoxia Status: Acute Plan: 09/08: Awaiting transfer to floor. Per pulmonology, will transition from IV to po steroids. If tolerated well she can be discharged. Will need home O2 therapy. --ECHO = no decrease LVEF --pulmonary toxicity either due to Herceptin or Taxol --dr. Hammond, pulmonology following --currently on Solu-medrol and Bactrim --V/Q scan in the emergency room which was low probability for pulmonary embolism. (2) Breast CA Status: Acute Plan: no further chemo. --started on weekly Herceptin and Taxol chemotherapy on July 15. Assessment 76y/o with triple positive left breast cancer admitted with respiratory insufficiency. Attending Statement No new complaints Short of breath on exertion On Oxygen and steroids The exam, history, and the medical decision-making described in the above note were completed with the assistance of the mid-level provider. I reviewed and agree with the findings presented. I attest that I had a [id number] encounter with the patient on the same day, and personally performed and documented my assessment and findings in the medical record. Giana Smiley Sep 08, 2016 14:59 Tiburcio Kirk MD Sep 09, 2016 00:29
[2016-09-08] MEDS: predniSONE 10 MG TAB PO SCH ×2 (16:46→20:54)
[2016-09-09] VITALS (17 sets, daily range): BP systolic 118–143; BP diastolic 60–79; PULSE 87–115; RESP 22–35; TEMP 98.2–98.5; O2SAT 89–98
[2016-09-09] MEDS: HEPARIN SODIUM - SQ 10,000 UNITS/ML VIAL SQ SCH ×3 (05:37→20:55)
[2016-09-09] MEDS: INSULIN NovoLIN REGULAR SUPPLEMENTAL SCALE SQ SCH ×4 (07:00→20:56)
[2016-09-09] MEDS: guaiFENesin E.R. 600 MG TAB PO SCH ×2 (08:30→20:54)
[2016-09-09] MEDS: DULoxetine HCl DR 60 MG CAP PO SCH (08:30)
[2016-09-09] MEDS: SODIUM CHLORIDE 0.9% FLUSH 10 ML FLUSH IV FLUSH SCH ×2 (08:30→20:56)
[2016-09-09] MEDS: ATORVASTATIN 80 MG TAB PO SCH (08:31)
[2016-09-09] MEDS: predniSONE 10 MG TAB PO SCH ×2 (08:31→20:54)
[2016-09-09] MEDS: DOCUSATE SODIUM 50 MG/SENNA 8.6 MG TAB PO SCH ×2 (08:31→20:56)
[2016-09-09] MEDS: TOLTERODINE TARTRATE 2 MG CAP LA PO SCH (08:31)
[2016-09-09] MEDS: PANTOPRAZOLE SOD 20 MG DELAYED RELEASE TAB PO SCH (08:31)
[2016-09-09] MEDS: POLYETHYLENE GLYCOL 17 GM PKG PO SCH (08:32)
[2016-09-09] MEDS: RESP: ALBUTEROL 2.5 MG/IPRATROPIUM 0.5 MG NEB (PRN) NEB (09:10)
--- NOTE | 2016-09-09 09:52 | HHI.PR ---
Subjective Remarks Lightout Examiner Notes: The patient is a 76 year-old female with past medical history of left-sided breast cancer diagnosed in April of 2016, currently on chemotherapy in the form of Taxol and Herceptin. She was admitted to [facility] on August 26 under the hospitalist service after she was sent to the ER by her oncologist, Dr. Kirk, secondary to hypoxemia following chemotherapy. She was noted to have O2 saturation of 75% on room air and upon EMS arrival she was placed on 4 liters oxygen when her saturation improved to 92%. She underwent a VQ scan of the chest which showed low probability for pulmonary embolism and chest x-ray showed mild interstitial prominence suggesting vascular congestion or volume overload. The patient underwent CTA of the chest as well which showed no evidence of pulmonary embolism, however, it showed extensive ground-glass opacities and questionable pulmonary fibrosis per report. The patient reported progressive worsening of shortness of breath for the past one week prior to admission. She denies any chest pain, shortness of breath, cough, or any constitutional symptoms. In addition she denies any exposure to sick contacts. She has been receiving chemotherapy every Monday for the past 7 weeks and is being followed by Dr. Kirk, the patient's oncologist. The patient denies any use of oxygen at home and she is a nonsmoker. She has been requiring increased O2 and was subsequently transferred to ICU. Critical care medicine was consulted for critical care management. The patient is also being followed by Dr. Hammond from pulmonary service, Dr. Louie from cardiology. ABG was performed at 04:27 this morning which showed pH of 7.41, CO2 37, pAO2 59, bicarb 23, sats of 88% on 9 liter simple mask. Chest x-ray from this morning showed increase in bilateral interstitial opacities. The patient has been placed on a non-rebreather and she was given Lasix 40 mg IV push at 10:34 this morning. The patient denies any nausea, vomiting, abdominal pain. In addition she denies any orthopnea, PND or edema of lower extremities. 08/29 No acute events overnight. On High flow oxygen with 70% FIO2. Afebrile. 08/30 Patient remains on high flow oxygen with good sats. CXR this morning no significant changes. 08/31 No events overnight. On high flow NC 25L with 75%FIO2, Afebrile. 09/01: Remains on high flow nasal cannula 30 L 65%. Afebrile. Mentating fine. Denies shortness of breath currently. 09/02: Afebrile. FiO2 down to 50%. 25 L. We'll attempt to get out of bed to chair daily. Tolerating diet. Positive BM. 09/03: Down to 4 L nasal cannula. Appears much improved. Bit itchy yesterday tolerating well. Tolerating diet. Hospitalist Notes: 09/08: Patient seen in her bedroom, asked by Nurse And Charge nurse to evaluate the patient and probable discharge, no new records in ERM by any specialist asked for six minute walk for discharge, then seen by customer experience specialist not clear for discharge yet. 09/09: Seen in her bedroom and discussed with Nurse Mr. Alvarado that the patient had possible aspiration with the need for 100% Non rebreather mask, at this time continue with the mask with Oxygen saturation 92%. No nausea, vomit or diarrhea, seen in Intensive Care Unit. May transfer to the Medical Floor if okay with customer experience specialist. Objective Vital Signs Date Time Temp Pulse Resp B/P Pulse Ox O2 Delivery O2 Flow Rate FiO2 09/09/16 08:00 Nasal Cannula 4.00 09/09/16 06:00 87 09/09/16 04:00 88 09/09/16 04:00 98.4 90 31 118/74 89 09/09/16 04:00 93 Nasal Cannula 4.00 09/09/16 02:00 90 09/09/16 00:00 98.2 88 22 122/64 94 09/09/16 00:00 88 09/09/16 00:00 92 Nasal Cannula 09/08/16 22:00 88 09/08/16 20:43 95 Nasal Cannula 3.50 09/08/16 20:00 98.2 97 23 123/64 95 09/08/16 20:00 97 09/08/16 20:00 93 Nasal Cannula 09/08/16 18:00 111 09/08/16 17:00 101 35 89 09/08/16 16:46 98.4 105 36 125/70 86 09/08/16 16:00 103 34 88 09/08/16 16:00 103 09/08/16 16:00 92 Nasal Cannula 4.00 09/08/16 14:37 4.00 09/08/16 14:00 104 09/08/16 12:00 98.2 103 20 130/72 93 09/08/16 12:00 93 Nasal Cannula 4.00 09/08/16 12:00 103 09/08/16 11:49 3.50 09/08/16 10:00 108 I/O 09/08/16 09/08/16 09/08/16 09/09/16 09/09/16 09/09/16 07:00 15:00 23:00 07:00 15:00 23:00 Intake Total 50 ml 720 ml 480 ml 240 ml Output Total 250 ml 1500 ml 700 ml 700 ml Balance -200 ml -780 ml -220 ml -460 ml Intake Oral 50 ml 720 ml 480 ml 240 ml Output Urine Total 250 ml 1500 ml 700 ml 700 ml # Bowel Movements 0 Result Diagram: 09/08/16 0527 09/07/16 0352 Imaging Last Impressions Chest X-Ray 09/08/16 0000 Signed Impressions: Service Date/Time: August 13:02 - CONCLUSION: Diffuse interstitial prominence suggesting interstitial lung disease. Vance Harper MD Chest CT 09/05/16 0000 Signed Impressions: Service Date/Time: Monday, September 05, 2016 15:04 - CONCLUSION: Background of diffuse ground glass opacity throughout both lungs with minimal peripheral consolidation all suggestive of an inflammatory process. Process has progressed from faint ground glass opacity on 08/26/16. Soy Harper MD FACR Lung Scan- Nuclear Medicine 08/26/16 0000 Signed Impressions: Service Date/Time: Friday, August 26, 2016 20:26 - CONCLUSION: 1. Low probability for pulmonary embolus. Checo Conner MD Procedures None Other Results Laboratory Tests Test 09/05/16 09/06/16 09/07/16 09/08/16 12:27 05:00 03:52 05:27 Nucleated Red Blood Cells 1 /100 WBC Metamyelocytes 1 % Red Cell Morphology Comment NORMAL Hematology Comments Sodium Level 136 MEQ/L Potassium Level 4.5 MEQ/L Chloride Level 100 MEQ/L Carbon Dioxide Level 29.5 MEQ/L Anion Gap 7 MEQ/L Blood Urea Nitrogen 17 MG/DL Creatinine 0.66 MG/DL Estimat Glomerular Filtration 87 ML/MIN Rate Random Glucose 107 MG/DL Calcium Level 8.5 MG/DL Phosphorus Level 2.8 MG/DL Magnesium Level 2.4 MG/DL Total Bilirubin 0.5 MG/DL Aspartate Amino Transf 26 U/L (AST/SGOT) Alanine Aminotransferase 41 U/L (ALT/SGPT) Alkaline Phosphatase 62 U/L Total Protein 5.6 GM/DL Albumin 2.6 GM/DL White Blood Count 24.9 TH/MM3 Red Blood Count 4.29 MIL/MM3 Hemoglobin 11.6 GM/DL Hematocrit 36.3 % Mean Corpuscular Volume 84.6 FL Mean Corpuscular Hemoglobin 27.1 PG Mean Corpuscular Hemoglobin 32.0 % Concent Red Cell Distribution Width 16.4 % Platelet Count 256 TH/MM3 Mean Platelet Volume 9.5 FL Neutrophils (%) (Auto) 85.2 % Lymphocytes (%) (Auto) 4.7 % Monocytes (%) (Auto) 10.0 % Eosinophils (%) (Auto) 0.1 % Basophils (%) (Auto) 0.0 % Neutrophils # (Auto) 21.2 TH/MM3 Lymphocytes # (Auto) 1.2 TH/MM3 Monocytes # (Auto) 2.5 TH/MM3 Eosinophils # (Auto) 0.0 TH/MM3 Basophils # (Auto) 0.0 TH/MM3 CBC Comment AUTO DIFF Differential Total Cells 100 Counted Neutrophils % (Manual) 76 % Band Neutrophils % 7 % Lymphocytes % 3 % Monocytes % 10 % Neutrophils # (Manual) 21.7 TH/MM3 Myelocytes 4 % Differential Comment FINAL DIFF MANUAL Platelet Estimate NORMAL Platelet Morphology Comment ENLARGED Ovalocytes 1+ Objective Remarks GENERAL: 76-year-old female, sitting up in bed in no acute distress on nasal cannula SKIN: Warm and dry. No rash HEAD: Normocephalic. EYES: No scleral icterus. No injection or drainage. NECK: Supple, trachea midline. No JVD or lymphadenopathy. CARDIOVASCULAR: Regular rate and rhythm without murmurs, gallops, or rubs. RESPIRATORY: Coarse crackles appreciated throughout lung acosta anterior- posterior. No wheeze GASTROINTESTINAL: Abdomen soft, non-tender, nondistended. Hypoactive bowel sounds MUSCULOSKELETAL: No significant peripheral edema. BACK: Nontender without obvious deformity. No CVA tenderness. Medications and IVs Current Medications Medications (Trade) Dose Ordered Sig/Aurelia Route Start Time Stop Time Status Last Admin (Mucinex Er) 600 mg BID PO 08/26/16 21:00 09/09/16 08:30 (NS Flush) 2 ml UNSCH PRN IV FLUSH 08/26/16 20:00 09/07/16 08:43 (NS Flush) 2 ml BID IV FLUSH 08/26/16 21:00 09/09/16 08:30 (Zofran Inj) 4 mg Q6H PRN IVP 08/26/16 20:00 09/08/16 19:34 (Heparin Inj) 5,000 units Q8H SQ 08/26/16 20:00 09/09/16 05:37 (Tylenol) 650 mg Q6H PRN PO 08/26/16 20:00 08/30/16 01:45 (Holton 5-325 Mg) 1 tab Q4H PRN PO 08/26/16 20:00 (Morphine Inj) 2 mg Q3H PRN IV 08/26/16 20:00 (Letty-Colace) 1 tab BID PO 08/26/16 21:00 09/09/16 08:31 (Milk Of Magnesia Liq) 30 ml Q12H PRN PO 08/26/16 20:00 (Senokot) 17.2 mg Q12H PRN PO 08/26/16 20:00 (Dulcolax Supp) 10 mg DAILY PRN RECTAL 08/26/16 20:00 (Lactulose Liq) 30 ml DAILY PRN PO 08/26/16 20:00 09/01/16 09:06 (Cymbalta Dr) 60 mg DAILY PO 08/27/16 09:00 09/09/16 08:30 (Lipitor) 80 mg DAILY PO 08/27/16 09:00 09/09/16 08:31 (Detrol La) 2 mg DAILY PO 08/27/16 09:00 09/09/16 08:31 (Vasotec Inj) 1.25 mg Q6H PRN IV 08/28/16 10:30 (D50w (Vial) Inj) 50 ml UNSCH PRN IV 08/28/16 12:30 (Glucagon Inj) 1 mg UNSCH PRN OTHER 08/28/16 12:30 Miscellaneous Information Patient in critical care unit? Ass... Q361D .XX 08/28/16 19:30 (Protonix) 20 mg DAILY PO 08/29/16 11:45 09/09/16 08:31 (NovoLIN R SUPPLEMENTAL SCALE) 1 ACHS SQ 09/01/16 16:00 09/08/16 20:59 (Miralax) 17 gm DAILY PO 09/02/16 09:00 (Bactrim Ds 800-160 Mg) 1 tab Q24H PO 09/05/16 13:00 09/08/16 12:08 (Deltasone) 30 mg BID PO 09/08/16 13:00 09/09/16 08:31 A/P Assessment and Plan Acute hypoxemic respiratory failure- improving Extensive ground-glass opacities. Ddx: hypersensitivity pneumonitis vs chemotherapy induced pulmonary toxicity/ interstitial pneumonitis versus other causes of valvulitis Continue Oxygen by NC, asked for six minute walk for discharge on Oxygen Bronchodilator, Mucolytic and incentive spirometry, Bactrim. now on Prednisone as per retail pos specialist. CT chest/not PE study 08/29 revealed extensive bilateral ground glass opacification Triple positive left breast cancer status post Herceptin scan and Taxol 07/15 weekly chemotherapy Normocytic anemia Leukocytosis Monitor CBC daily. Follow trends Patient is afebrile and symptom improvement. leukocytosis likely due to steroids Hyperlipidemia. Stage I diastolic dysfunction currently on Lipitor 80 mg by mouth at bedtime for dyslipidemia 2-D echo revealed EF 55%. Stage I diastolic dysfunction. Mild MR. Depression Continue Cymbalta 60 mg by mouth daily for depression Continue Holton for pain management good family support Urinary Incontinence Continue Detrol LA 2 mg by mouth daily Prophylaxis - GI - Protonix - DVT - SCD/heparin subcutaneous Okay to transfer to the Medical Floor. discussed with RN and with Corrugated Fastener Driver. Discharge Planning Once cleared for Discharge by customer experience specialist. Himanshu Jimenez MD Sep 09, 2016 09:52
--- NOTE | 2016-09-09 11:28 | RADRPT ---
EXAM DATE/TIME: 09/09/2016 10:12 [place] COMPARISON: CT PULMONARY ANGIOGRAM, August 26, 2016, 16:50. CHEST SINGLE AP, September 04, 2016, 2:58. INDICATIONS : Evaluate for pneumonia post aspiration. MEDICAL HISTORY : Carcinoma, breast. SURGICAL HISTORY : Post placement. ENCOUNTER: Initial ACUITY: 1 day PAIN SCORE: Non-responsive. LOCATION: Bilateral chest FINDINGS: [id number] is in good position. There is interval improvement with better aeration. Minimal airs pace disease remains in the left base. The heart and pulmonary vascularity are normal. The portion of the bony skeleton visualized is unremarkable. CONCLUSION: Interval improvement. Minimal airspace disease left base, improving in the interval. Soy Harper MD FACR on September 09, 2016 at 11:24 Board Certified Radiologist. This report was verified electronically.
--- NOTE | 2016-09-09 12:54 | PD.ONC.PN ---
Subjective Subjective Remarks Afebrile overnight. Patient resting in bed in nad. Earlier today, while eating breakfast, she choked on some food and then had trouble breathing. CXR obtained this morning. She is feeling better now. Objective Data Date Time Temp Pulse Resp B/P Pulse Ox O2 Delivery O2 Flow Rate FiO2 09/09/16 12:00 98.5 105 24 143/69 96 09/09/16 12:00 96 Venturi Mask 40 09/09/16 12:00 106 09/09/16 10:46 93 Venturi Mask 50 09/09/16 10:00 104 09/09/16 08:00 98.2 100 26 130/67 95 09/09/16 08:00 100 09/09/16 08:00 Nasal Cannula 4.00 09/09/16 06:00 87 09/09/16 04:00 88 09/09/16 04:00 98.4 90 31 118/74 89 09/09/16 04:00 93 Nasal Cannula 4.00 09/09/16 02:00 90 09/09/16 00:00 98.2 88 22 122/64 94 09/09/16 00:00 88 09/09/16 00:00 92 Nasal Cannula 09/08/16 22:00 88 09/08/16 20:43 95 Nasal Cannula 3.50 09/08/16 20:00 98.2 97 23 123/64 95 09/08/16 20:00 97 09/08/16 20:00 93 Nasal Cannula 09/08/16 18:00 111 09/08/16 17:00 101 35 89 09/08/16 16:46 98.4 105 36 125/70 86 09/08/16 16:00 103 34 88 09/08/16 16:00 103 09/08/16 16:00 92 Nasal Cannula 4.00 09/08/16 14:37 4.00 09/08/16 14:00 104 09/09/16 09/09/16 09/09/16 07:00 15:00 23:00 Intake Total 240 ml Output Total 700 ml Balance -460 ml Result Diagram: 09/08/16 0527 09/07/16 0352 Imaging Studies Last 24 hours Impressions Chest X-Ray 09/09/16 0000 Signed Impressions: Service Date/Time: Piyush, September 09, 2016 10:12 - CONCLUSION: Interval improvement. Minimal airspace disease left base, improving in the interval. Soy Harper MD FACR Administered Medications Medications (Trade) Dose Ordered Sig/Aurelia Route PRN Reason Start Time Stop Time Status Last Admin Dose Admin Guaifenesin (Mucinex Er) 600 mg BID PO 08/26/16 21:00 09/09/16 08:30 Sodium Chloride (NS Flush) 2 ml UNSCH PRN IV FLUSH FLUSH AFTER USING IV ACCESS 08/26/16 20:00 09/07/16 08:43 Sodium Chloride (NS Flush) 2 ml BID IV FLUSH 08/26/16 21:00 09/09/16 08:30 Ondansetron HCl (Zofran Inj) 4 mg Q6H PRN IVP NAUSEA OR VOMITING 08/26/16 20:00 09/08/16 19:34 Heparin Sodium (Porcine) (Heparin Inj) 5,000 units Q8H SQ 08/26/16 20:00 09/09/16 05:37 Acetaminophen (Tylenol) 650 mg Q6H PRN PO FEVER/PAIN SCALE 1 TO 2 08/26/16 20:00 08/30/16 01:45 Senna/Docusate Sodium (Letty-Colace) 1 tab BID PO 08/26/16 21:00 09/09/16 08:31 Lactulose (Lactulose Liq) 30 ml DAILY PRN PO SEVERE CONSITIPATION 08/26/16 20:00 09/01/16 09:06 Duloxetine HCl (Cymbalta Dr) 60 mg DAILY PO 08/27/16 09:00 09/09/16 08:30 Atorvastatin Calcium (Lipitor) 80 mg DAILY PO 08/27/16 09:00 09/09/16 08:31 Tolterodine Tartrate (Detrol La) 2 mg DAILY PO 08/27/16 09:00 09/09/16 08:31 Pantoprazole Sodium (Protonix) 20 mg DAILY PO 08/29/16 11:45 09/09/16 08:31 Insulin Human Regular (NovoLIN R SUPPLEMENTAL SCALE) 1 ACHS SQ 09/01/16 16:00 09/08/16 20:59 Trimethoprim/ Sulfamethoxazole (Bactrim Ds 800-160 Mg) 1 tab Q24H PO 09/05/16 13:00 09/08/16 12:08 Prednisone (Deltasone) 30 mg BID PO 09/08/16 13:00 09/09/16 08:31 Objective Remarks GENERAL: Elderly female, upright in bed in nad. SKIN: Warm and dry. HEAD: Normocephalic. EYES: No injection or drainage. NECK: Supple, trachea midline. CARDIOVASCULAR: Regular rate and rhythm RESPIRATORY: diminished at bases. scattered rhonchi. on 40 FiO2 Venti mask. GASTROINTESTINAL: Abdomen soft, non-tender, nondistended. EXTREMITIES: No cyanosis NEUROLOGICAL: awake and alert, normal speech. moving extremities. Assessment/Plan Problem List: (1) Hypoxia Status: Acute Plan: 09/09: continue steroids. reviewed CXR with patient. monitor CBC --ECHO = no decrease LVEF --pulmonary toxicity either due to Herceptin or Taxol --dr. Hammond, pulmonology following --V/Q scan in the emergency room which was low probability for pulmonary embolism. (2) Breast CA Status: Acute Plan: no further chemo. --started on weekly Herceptin and Taxol chemotherapy on July 15. Assessment 76y/o with triple positive left breast cancer admitted with respiratory insufficiency. Attending Statement c/o desat on exertion On prednisone. OK to tx to floor. arrange outpt O2 The exam, history, and the medical decision-making described in the above note were completed with the assistance of the mid-level provider. I reviewed and agree with the findings presented. I attest that I had a [id number] encounter with the patient on the same day, and personally performed and documented my assessment and findings in the medical record. Josey Gandara Sep 09, 2016 12:54 Tiburcio Kirk MD Sep 09, 2016 13:26
[2016-09-09] MEDS: SULFAMETHOXAZOLE-TRIMETHOPRIM DS 800-160 MG TAB PO SCH (13:41)
[2016-09-09] MEDS: ONDANSETRON HCL 4 MG/2 ML VIAL IVP PRN (21:01)
[2016-09-10] VITALS (10 sets, daily range): BP systolic 126–147; BP diastolic 65–84; PULSE 74–114; RESP 18–21; TEMP 97.2–98.2; O2SAT 87–99
[2016-09-10] MEDS: HEPARIN SODIUM - SQ 10,000 UNITS/ML VIAL SQ SCH ×3 (04:45→20:51)
[2016-09-10] MEDS: INSULIN NovoLIN REGULAR SUPPLEMENTAL SCALE SQ SCH ×4 (06:08→20:51)
[2016-09-10] MEDS: ONDANSETRON HCL 4 MG/2 ML VIAL IVP PRN ×2 (08:25→20:56)
[2016-09-10] MEDS: SODIUM CHLORIDE 0.9% FLUSH 10 ML FLUSH IV FLUSH SCH ×2 (08:26→20:51)
[2016-09-10] MEDS: predniSONE 10 MG TAB PO SCH ×2 (08:28→20:51)
[2016-09-10] MEDS: DULoxetine HCl DR 60 MG CAP PO SCH (08:28)
[2016-09-10] MEDS: POLYETHYLENE GLYCOL 17 GM PKG PO SCH (08:29)
[2016-09-10] MEDS: guaiFENesin E.R. 600 MG TAB PO SCH ×2 (08:29→20:51)
[2016-09-10] MEDS: DOCUSATE SODIUM 50 MG/SENNA 8.6 MG TAB PO SCH ×2 (08:29→20:51)
[2016-09-10] MEDS: PANTOPRAZOLE SOD 20 MG DELAYED RELEASE TAB PO SCH (08:29)
[2016-09-10] MEDS: ATORVASTATIN 80 MG TAB PO SCH (08:29)
[2016-09-10] MEDS: TOLTERODINE TARTRATE 2 MG CAP LA PO SCH (09:00)
--- NOTE | 2016-09-10 10:59 | HHI.PR ---
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 She was admitted to [facility] on August 26 under the hospitalist service after she was sent to the ER by her oncologist, Dr. Kirk, secondary to hypoxemia following chemotherapy. She was noted to have O2 saturation of 75% on room air and upon EMS arrival she was placed on 4 liters oxygen when her saturation improved to 92%. She underwent a VQ scan of the chest which showed low probability for pulmonary embolism and chest x-ray showed mild interstitial prominence suggesting vascular congestion or volume overload. The patient underwent CTA of the chest as well which showed no evidence of pulmonary embolism, however, it showed extensive ground-glass opacities and questionable pulmonary fibrosis per report. The patient reported progressive worsening of shortness of breath for the past one week prior to admission. She denies any chest pain, shortness of breath, cough, or any constitutional symptoms. In addition she denies any exposure to sick contacts. She has been receiving chemotherapy every Monday for the past 7 weeks and is being followed by Dr. Kirk, the patient's oncologist. The patient denies any use of oxygen at home and she is a nonsmoker. She has been requiring increased O2 and was subsequently transferred to ICU. Critical care medicine was consulted for critical care management. The patient is also being followed by Dr. Hammond from pulmonary service, Dr. Louie from cardiology. ABG was performed at 04:27 this morning which showed pH of 7.41, CO2 37, pAO2 59, bicarb 23, sats of 88% on 9 liter simple mask. Chest x-ray from this morning showed increase in bilateral interstitial opacities. The patient has been placed on a non-rebreather and she was given Lasix 40 mg IV push at 10:34 this morning. The patient denies any nausea, vomiting, abdominal pain. In addition she denies any orthopnea, PND or edema of lower extremities. 08/29 No acute events overnight. On High flow oxygen with 70% FIO2. Afebrile. 08/30 Patient remains on high flow oxygen with good sats. CXR this morning no significant changes. 08/31 No events overnight. On high flow NC 25L with 75%FIO2, Afebrile. 09/01: Remains on high flow nasal cannula 30 L 65%. Afebrile. Mentating fine. Denies shortness of breath currently. 09/02: Afebrile. FiO2 down to 50%. 25 L. We'll attempt to get out of bed to chair daily. Tolerating diet. Positive BM. 09/03: Down to 4 L nasal cannula. Appears much improved. Bit itchy yesterday tolerating well. Tolerating diet. Hospitalist Notes: 09/08: Patient seen in her bedroom, asked by Nurse And Charge nurse to evaluate the patient and probable discharge, no new records in ERM by any specialist asked for six minute walk for discharge, then seen by demo event specialist not clear for discharge yet. 09/09: Seen in her bedroom and discussed with Nurse Mr. Alvarado that the patient had possible aspiration with the need for 100% Non rebreather mask, at this time continue with the mask with Oxygen saturation 92%. No nausea, vomit or diarrhea, seen in Intensive Care Unit. May transfer to the Medical Floor if okay with demo event specialist. 09/10: Stable in her bedroom keep better oxygen saturation, at this time having a respiratory therapy, no complaint, no nausea, vomit or diarrhea. not yet cleared for discharge by demo event specialist. Objective Vital Signs Date Time Temp Pulse Resp B/P Pulse Ox O2 Delivery O2 Flow Rate FiO2 09/10/16 08:55 Venturi Mask 4.00 50 09/10/16 08:00 97.4 100 20 131/73 96 09/10/16 04:43 Venturi Mask 50 09/10/16 04:24 98.0 74 18 129/71 99 09/10/16 02:00 94 Venturi Mask 50 09/10/16 02:00 86 09/10/16 00:00 Nasal Cannula 3.00 09/10/16 00:00 86 09/10/16 00:00 98.2 87 21 136/69 97 09/09/16 22:00 92 09/09/16 20:00 98.2 96 26 97 09/09/16 20:00 96 09/09/16 20:00 97 Venturi Mask 35 09/09/16 19:03 98 Venturi Mask 6.00 50 09/09/16 18:28 101 09/09/16 16:00 103 09/09/16 16:00 94 Venturi Mask 35 09/09/16 16:00 98.2 107 31 129/66 92 09/09/16 15:18 114 35 132/60 90 09/09/16 15:00 115 32 91 09/09/16 14:00 109 28 124/69 90 09/09/16 14:00 109 09/09/16 13:00 105 24 133/79 96 09/09/16 12:00 98.5 105 24 143/69 96 09/09/16 12:00 96 Venturi Mask 40 09/09/16 12:00 106 I/O 09/09/16 09/09/16 09/09/16 09/10/16 09/10/16 09/10/16 07:00 15:00 23:00 07:00 15:00 23:00 Intake Total 240 ml 600 ml 400 ml Output Total 700 ml 800 ml 400 ml Balance -460 ml -200 ml 0 ml Intake Oral 240 ml 600 ml 400 ml Output Urine Total 700 ml 800 ml 400 ml Result Diagram: 09/08/16 0527 09/07/16 0352 Imaging Last Impressions Chest X-Ray 09/09/16 0000 Signed Impressions: Service Date/Time: Friday, September 09, 2016 10:12 - CONCLUSION: Interval improvement. Minimal airspace disease left base, improving in the interval. Soy Harper MD FACR Chest CT 09/05/16 0000 Signed Impressions: Service Date/Time: Monday, September 05, 2016 15:04 - CONCLUSION: Background of diffuse ground glass opacity throughout both lungs with minimal peripheral consolidation all suggestive of an inflammatory process. Process has progressed from faint ground glass opacity on 08/26/16. Soy Harper MD FACR Lung Scan-VQ Nuclear Medicine 08/26/16 0000 Signed Impressions: Service Date/Time: Friday, August 26, 2016 20:26 - CONCLUSION: 1. Low probability for pulmonary embolus. Checo Conner MD Procedures None Other Results Laboratory Tests Test 09/06/16 09/07/16 09/08/16 05:00 03:52 05:27 Metamyelocytes 1 % Red Cell Morphology Comment NORMAL Hematology Comments Sodium Level 136 MEQ/L Potassium Level 4.5 MEQ/L Chloride Level 100 MEQ/L Carbon Dioxide Level 29.5 MEQ/L Anion Gap 7 MEQ/L Blood Urea Nitrogen 17 MG/DL Creatinine 0.66 MG/DL Estimat Glomerular Filtration 87 ML/MIN Rate Random Glucose 107 MG/DL Calcium Level 8.5 MG/DL Phosphorus Level 2.8 MG/DL Magnesium Level 2.4 MG/DL Total Bilirubin 0.5 MG/DL Aspartate Amino Transf 26 U/L (AST/SGOT) Alanine Aminotransferase 41 U/L (ALT/SGPT) Alkaline Phosphatase 62 U/L Total Protein 5.6 GM/DL Albumin 2.6 GM/DL White Blood Count 24.9 TH/MM3 Red Blood Count 4.29 MIL/MM3 Hemoglobin 11.6 GM/DL Hematocrit 36.3 % Mean Corpuscular Volume 84.6 FL Mean Corpuscular Hemoglobin 27.1 PG Mean Corpuscular Hemoglobin 32.0 % Concent Red Cell Distribution Width 16.4 % Platelet Count 256 TH/MM3 Mean Platelet Volume 9.5 FL Neutrophils (%) (Auto) 85.2 % Lymphocytes (%) (Auto) 4.7 % Monocytes (%) (Auto) 10.0 % Eosinophils (%) (Auto) 0.1 % Basophils (%) (Auto) 0.0 % Neutrophils # (Auto) 21.2 TH/MM3 Lymphocytes # (Auto) 1.2 TH/MM3 Monocytes # (Auto) 2.5 TH/MM3 Eosinophils # (Auto) 0.0 TH/MM3 Basophils # (Auto) 0.0 TH/MM3 CBC Comment AUTO DIFF Differential Total Cells 100 Counted Neutrophils % (Manual) 76 % Band Neutrophils % 7 % Lymphocytes % 3 % Monocytes % 10 % Neutrophils # (Manual) 21.7 TH/MM3 Myelocytes 4 % Differential Comment FINAL DIFF MANUAL Platelet Estimate NORMAL Platelet Morphology Comment ENLARGED Ovalocytes 1+ Objective Remarks GENERAL: No acute distress. SKIN: Warm and dry. No rash HEAD: Normocephalic. EYES: No scleral icterus. No injection or drainage. NECK: Supple, trachea midline. No JVD or lymphadenopathy. CARDIOVASCULAR: Regular rate and rhythm without murmurs, gallops, or rubs. RESPIRATORY: decreased breath sounds bilateral no wheezing. GASTROINTESTINAL: Abdomen soft, non-tender, nondistended. Hypoactive bowel sounds MUSCULOSKELETAL: No significant peripheral edema. BACK: Nontender without obvious deformity. No CVA tenderness. Medications and IVs Current Medications Medications (Trade) Dose Ordered Sig/Aurelia Route Start Time Stop Time Status Last Admin (Mucinex Er) 600 mg BID PO 08/26/16 21:00 09/10/16 08:29 (NS Flush) 2 ml UNSCH PRN IV FLUSH 08/26/16 20:00 09/07/16 08:43 (NS Flush) 2 ml BID IV FLUSH 08/26/16 21:00 09/10/16 08:26 (Zofran Inj) 4 mg Q6H PRN IVP 08/26/16 20:00 09/10/16 08:25 (Heparin Inj) 5,000 units Q8H SQ 08/26/16 20:00 09/10/16 04:45 (Tylenol) 650 mg Q6H PRN PO 08/26/16 20:00 08/30/16 01:45 ([place] 5-325 Mg) 1 tab Q4H PRN PO 08/26/16 20:00 (Morphine Inj) 2 mg Q3H PRN IV 08/26/16 20:00 (Letty-Colace) 1 tab BID PO 08/26/16 21:00 09/10/16 08:29 (Milk Of Magnesia Liq) 30 ml Q12H PRN PO 08/26/16 20:00 (Senokot) 17.2 mg Q12H PRN PO 08/26/16 20:00 (Dulcolax Supp) 10 mg DAILY PRN RECTAL 08/26/16 20:00 (Lactulose Liq) 30 ml DAILY PRN PO 08/26/16 20:00 09/01/16 09:06 (Cymbalta Dr) 60 mg DAILY PO 08/27/16 09:00 09/10/16 08:28 (Lipitor) 80 mg DAILY PO 08/27/16 09:00 09/10/16 08:29 (Detrol La) 2 mg DAILY PO 08/27/16 09:00 09/09/16 08:31 (Vasotec Inj) 1.25 mg Q6H PRN IV 08/28/16 10:30 (D50w (Vial) Inj) 50 ml UNSCH PRN IV 08/28/16 12:30 (Glucagon Inj) 1 mg UNSCH PRN OTHER 08/28/16 12:30 Miscellaneous Information Patient in critical care unit? Ass... Q361D .XX 08/28/16 19:30 (Protonix) 20 mg DAILY PO 08/29/16 11:45 09/10/16 08:29 (NovoLIN R SUPPLEMENTAL SCALE) 1 ACHS SQ 09/01/16 16:00 09/08/16 20:59 (Miralax) 17 gm DAILY PO 09/02/16 09:00 09/10/16 08:29 (Bactrim Ds 800-160 Mg) 1 tab Q24H PO 09/05/16 13:00 09/09/16 13:41 (Deltasone) 30 mg BID PO 09/08/16 13:00 09/10/16 08:28 A/P Assessment and Plan Acute hypoxemic respiratory failure- improving Extensive ground-glass opacities. Ddx: hypersensitivity pneumonitis vs chemotherapy induced pulmonary toxicity/ interstitial pneumonitis versus other causes of valvulitis Continue Oxygen by NC, asked for six minute walk for discharge on Oxygen Bronchodilator, Mucolytic and incentive spirometry, Bactrim. now on Prednisone as per media center specialist. CT chest/not PE study 08/29 revealed extensive bilateral ground glass opacification demo event specialist considering discharge new CXR Improvement. Triple positive left breast cancer status post Herceptin scan and Taxol 07/15 weekly chemotherapy Normocytic anemia Leukocytosis Monitor CBC daily. Follow trends Patient is afebrile and symptom improvement. leukocytosis likely due to steroids Hyperlipidemia. Stage I diastolic dysfunction currently on Lipitor 80 mg by mouth at bedtime for dyslipidemia 2-D echo revealed EF 55%. Stage I diastolic dysfunction. Mild MR. Depression Continue Cymbalta 60 mg by mouth daily for depression Continue [place] for pain management good family support Urinary Incontinence Continue Detrol LA 2 mg by mouth daily Prophylaxis - GI - Protonix - DVT - SCD/heparin subcutaneous Discharge Planning Once cleared for Discharge by demo event specialist. Himanshu Jimenez MD Sep 10, 2016 10:59 Himanshu Jimenez MD Sep 10, 2016 10:59
[2016-09-10] MEDS: SULFAMETHOXAZOLE-TRIMETHOPRIM DS 800-160 MG TAB PO SCH (12:04)
[2016-09-10] MEDS: RESP: ALBUTEROL 2.5 MG/IPRATROPIUM 0.5 MG NEB (SCH) NEB (19:38)
[2016-09-11] VITALS (10 sets, daily range): BP systolic 107–129; BP diastolic 56–77; PULSE 97–122; RESP 18–20; TEMP 97.9–98.5; O2SAT 85–96
[2016-09-11] MEDS: HEPARIN SODIUM - SQ 10,000 UNITS/ML VIAL SQ SCH ×3 (05:22→21:02)
[2016-09-11] MEDS: INSULIN NovoLIN REGULAR SUPPLEMENTAL SCALE SQ SCH ×4 (05:25→21:00)
[2016-09-11] MEDS: RESP: ALBUTEROL 2.5 MG/IPRATROPIUM 0.5 MG NEB (SCH) NEB ×2 (08:35→19:29)
[2016-09-11] MEDS: guaiFENesin E.R. 600 MG TAB PO SCH ×2 (09:19→21:01)
[2016-09-11] MEDS: ATORVASTATIN 80 MG TAB PO SCH (09:19)
[2016-09-11] MEDS: predniSONE 10 MG TAB PO SCH ×2 (09:19→21:00)
[2016-09-11] MEDS: TOLTERODINE TARTRATE 2 MG CAP LA PO SCH (09:19)
[2016-09-11] MEDS: DULoxetine HCl DR 60 MG CAP PO SCH (09:19)
[2016-09-11] MEDS: POLYETHYLENE GLYCOL 17 GM PKG PO SCH (09:20)
[2016-09-11] MEDS: DOCUSATE SODIUM 50 MG/SENNA 8.6 MG TAB PO SCH ×2 (09:20→21:01)
[2016-09-11] MEDS: SODIUM CHLORIDE 0.9% FLUSH 10 ML FLUSH IV FLUSH SCH ×2 (09:20→21:01)
[2016-09-11] MEDS: PANTOPRAZOLE SOD 20 MG DELAYED RELEASE TAB PO SCH (09:20)
--- NOTE | 2016-09-11 09:39 | HHI.PR ---
Subjective Remarks Commercial Attorney Notes: The patient is a 76 year-old female with past medical history of left-sided breast cancer diagnosed in April of 2016, currently on chemotherapy in the form of Taxol and Herceptin. She was admitted to [facility] on August 26 under the hospitalist service after she was sent to the ER by her oncologist, Dr. Kirk, secondary to hypoxemia following chemotherapy. She was noted to have O2 saturation of 75% on room air and upon EMS arrival she was placed on 4 liters oxygen when her saturation improved to 92%. She underwent a VQ scan of the chest which showed low probability for pulmonary embolism and chest x-ray showed mild interstitial prominence suggesting vascular congestion or volume overload. The patient underwent CTA of the chest as well which showed no evidence of pulmonary embolism, however, it showed extensive ground-glass opacities and questionable pulmonary fibrosis per report. The patient reported progressive worsening of shortness of breath for the past one week prior to admission. She denies any chest pain, shortness of breath, cough, or any constitutional symptoms. In addition she denies any exposure to sick contacts. She has been receiving chemotherapy every Monday for the past 7 weeks and is being followed by Dr. Kirk, the patient's oncologist. The patient denies any use of oxygen at home and she is a nonsmoker. She has been requiring increased O2 and was subsequently transferred to ICU. Critical care medicine was consulted for critical care management. The patient is also being followed by Dr. Hammond from pulmonary service, Dr. Louie from cardiology. ABG was performed at 04:27 this morning which showed pH of 7.41, CO2 37, pAO2 59, bicarb 23, sats of 88% on 9 liter simple mask. Chest x-ray from this morning showed increase in bilateral interstitial opacities. The patient has been placed on a non-rebreather and she was given Lasix 40 mg IV push at 10:34 this morning. The patient denies any nausea, vomiting, abdominal pain. In addition she denies any orthopnea, PND or edema of lower extremities. 08/29 No acute events overnight. On High flow oxygen with 70% FIO2. Afebrile. 08/30 Patient remains on high flow oxygen with good sats. CXR this morning no significant changes. 08/31 No events overnight. On high flow NC 25L with 75%FIO2, Afebrile. 09/01: Remains on high flow nasal cannula 30 L 65%. Afebrile. Mentating fine. Denies shortness of breath currently. 09/02: Afebrile. FiO2 down to 50%. 25 L. We'll attempt to get out of bed to chair daily. Tolerating diet. Positive BM. 09/03: Down to 4 L nasal cannula. Appears much improved. Bit itchy yesterday tolerating well. Tolerating diet. Hospitalist Notes: 09/08: Patient seen in her bedroom, asked by Nurse And Charge nurse to evaluate the patient and probable discharge, no new records in ERM by any specialist asked for six minute walk for discharge, then seen by family intervention specialist not clear for discharge yet. 09/09: Seen in her bedroom and discussed with Nurse Mr. Alvarado that the patient had possible aspiration with the need for 100% Non rebreather mask, at this time continue with the mask with Oxygen saturation 92%. No nausea, vomit or diarrhea, seen in Intensive Care Unit. May transfer to the Medical Floor if okay with family intervention specialist. 09/10: Stable in her bedroom keep better oxygen saturation, at this time having a respiratory therapy, no complaint, not yet cleared for discharge by family intervention specialist. 09/11: Seen in her bedroom, no improving, continue with high oxygen demand, on Steroids. no nausea, vomit or diarrhea. Objective Vital Signs Date Time Temp Pulse Resp B/P Pulse Ox O2 Delivery O2 Flow Rate FiO2 09/11/16 08:34 87 Nasal Cannula 5.00 09/11/16 08:00 97.9 102 20 129/77 94 09/11/16 04:00 98.3 97 19 116/62 92 09/11/16 04:00 Nasal Cannula 4.00 09/11/16 02:12 96 Nasal Cannula 4.00 09/11/16 01:00 96 Nasal Cannula 4.00 09/11/16 00:00 98.1 108 20 114/65 96 09/11/16 00:00 Nasal Cannula 5.00 09/10/16 20:12 107 09/10/16 20:00 Nasal Cannula 5.00 09/10/16 20:00 97.8 111 20 126/84 92 09/10/16 19:38 96 Nasal Cannula 5.00 09/10/16 16:00 97.2 114 20 147/65 88 09/10/16 16:00 Venturi Mask 5.00 50 09/10/16 13:06 87 Nasal Cannula 5.00 09/10/16 12:00 Venturi Mask 4.00 50 09/10/16 12:00 97.5 99 20 127/73 92 I/O 09/10/16 09/10/16 09/10/16 09/11/16 09/11/16 09/11/16 07:00 15:00 23:00 07:00 15:00 23:00 Intake Total 650 ml 240 ml 200 ml Balance 650 ml 240 ml 200 ml Intake Oral 650 ml 240 ml 200 ml # Voids 2 1 Result Diagram: 09/08/16 0527 09/07/16 0352 Imaging Last Impressions Chest X-Ray 09/09/16 0000 Signed Impressions: Service Date/Time: Friday, September 09, 2016 10:12 - CONCLUSION: Interval improvement. Minimal airspace disease left base, improving in the interval. Soy Harper MD FACR Chest CT 09/05/16 0000 Signed Impressions: Service Date/Time: Monday, September 05, 2016 15:04 - CONCLUSION: Background of diffuse ground glass opacity throughout both lungs with minimal peripheral consolidation all suggestive of an inflammatory process. Process has progressed from faint ground glass opacity on 08/26/16. Soy Harper MD FACR Lung Scan-VQ Nuclear Medicine 08/26/16 0000 Signed Impressions: Service Date/Time: Friday, August 26, 2016 20:26 - CONCLUSION: 1. Low probability for pulmonary embolus. Checo Conner MD Procedures None Other Results Laboratory Tests Test 09/07/16 09/08/16 03:52 05:27 Sodium Level 136 MEQ/L Potassium Level 4.5 MEQ/L Chloride Level 100 MEQ/L Carbon Dioxide Level 29.5 MEQ/L Anion Gap 7 MEQ/L Blood Urea Nitrogen 17 MG/DL Creatinine 0.66 MG/DL Estimat Glomerular Filtration 87 ML/MIN Rate Random Glucose 107 MG/DL Calcium Level 8.5 MG/DL Phosphorus Level 2.8 MG/DL Magnesium Level 2.4 MG/DL Total Bilirubin 0.5 MG/DL Aspartate Amino Transf 26 U/L (AST/SGOT) Alanine Aminotransferase 41 U/L (ALT/SGPT) Alkaline Phosphatase 62 U/L Total Protein 5.6 GM/DL Albumin 2.6 GM/DL White Blood Count 24.9 TH/MM3 Red Blood Count 4.29 MIL/MM3 Hemoglobin 11.6 GM/DL Hematocrit 36.3 % Mean Corpuscular Volume 84.6 FL Mean Corpuscular Hemoglobin 27.1 PG Mean Corpuscular Hemoglobin 32.0 % Concent Red Cell Distribution Width 16.4 % Platelet Count 256 TH/MM3 Mean Platelet Volume 9.5 FL Neutrophils (%) (Auto) 85.2 % Lymphocytes (%) (Auto) 4.7 % Monocytes (%) (Auto) 10.0 % Eosinophils (%) (Auto) 0.1 % Basophils (%) (Auto) 0.0 % Neutrophils # (Auto) 21.2 TH/MM3 Lymphocytes # (Auto) 1.2 TH/MM3 Monocytes # (Auto) 2.5 TH/MM3 Eosinophils # (Auto) 0.0 TH/MM3 Basophils # (Auto) 0.0 TH/MM3 CBC Comment AUTO DIFF Differential Total Cells 100 Counted Neutrophils % (Manual) 76 % Band Neutrophils % 7 % Lymphocytes % 3 % Monocytes % 10 % Neutrophils # (Manual) 21.7 TH/MM3 Myelocytes 4 % Differential Comment FINAL DIFF MANUAL Platelet Estimate NORMAL Platelet Morphology Comment ENLARGED Ovalocytes 1+ Objective Remarks GENERAL: No acute distress. SKIN: Warm and dry. No rash HEAD: Normocephalic. EYES: No scleral icterus. No injection or drainage. NECK: Supple, trachea midline. No JVD or lymphadenopathy. CARDIOVASCULAR: Regular rate and rhythm without murmurs, gallops, or rubs. RESPIRATORY: decreased breath sounds bilateral no wheezing. GASTROINTESTINAL: Abdomen soft, non-tender, nondistended. Hypoactive bowel sounds MUSCULOSKELETAL: No significant peripheral edema. BACK: Nontender without obvious deformity. No CVA tenderness. Medications and IVs Current Medications Medications (Trade) Dose Ordered Sig/Aurelia Route Start Time Stop Time Status Last Admin (Mucinex Er) 600 mg BID PO 08/26/16 21:00 09/11/16 09:19 (NS Flush) 2 ml UNSCH PRN IV FLUSH 08/26/16 20:00 09/07/16 08:43 (NS Flush) 2 ml BID IV FLUSH 08/26/16 21:00 09/11/16 09:20 (Zofran Inj) 4 mg Q6H PRN IVP 08/26/16 20:00 09/10/16 20:56 (Heparin Inj) 5,000 units Q8H SQ 08/26/16 20:00 09/11/16 05:22 (Tylenol) 650 mg Q6H PRN PO 08/26/16 20:00 08/30/16 01:45 ([place] 5-325 Mg) 1 tab Q4H PRN PO 08/26/16 20:00 (Morphine Inj) 2 mg Q3H PRN IV 08/26/16 20:00 (Letty-Colace) 1 tab BID PO 08/26/16 21:00 09/11/16 09:20 (Milk Of Magnesia Liq) 30 ml Q12H PRN PO 08/26/16 20:00 (Senokot) 17.2 mg Q12H PRN PO 08/26/16 20:00 (Dulcolax Supp) 10 mg DAILY PRN RECTAL 08/26/16 20:00 (Lactulose Liq) 30 ml DAILY PRN PO 08/26/16 20:00 09/01/16 09:06 (Cymbalta Dr) 60 mg DAILY PO 08/27/16 09:00 09/11/16 09:19 (Lipitor) 80 mg DAILY PO 08/27/16 09:00 09/11/16 09:19 (Detrol La) 2 mg DAILY PO 08/27/16 09:00 09/11/16 09:19 (Vasotec Inj) 1.25 mg Q6H PRN IV 08/28/16 10:30 (D50w (Vial) Inj) 50 ml UNSCH PRN IV 08/28/16 12:30 (Glucagon Inj) 1 mg UNSCH PRN OTHER 08/28/16 12:30 Miscellaneous Information Patient in critical care unit? Ass... Q361D .XX 08/28/16 19:30 (Protonix) 20 mg DAILY PO 08/29/16 11:45 09/11/16 09:20 (NovoLIN R SUPPLEMENTAL SCALE) 1 ACHS SQ 09/01/16 16:00 09/10/16 12:04 (Miralax) 17 gm DAILY PO 09/02/16 09:00 09/11/16 09:20 (Bactrim Ds 800-160 Mg) 1 tab Q24H PO 09/05/16 13:00 09/10/16 12:04 (Deltasone) 30 mg BID PO 09/08/16 13:00 09/11/16 09:19 A/P Assessment and Plan Acute hypoxemic respiratory failure- improving Extensive ground-glass opacities. Ddx: hypersensitivity pneumonitis vs chemotherapy induced pulmonary toxicity/ interstitial pneumonitis versus other causes of valvulitis Continue Oxygen by ME, asked for six minute walk for discharge on Oxygen Bronchodilator, Mucolytic and incentive spirometry, Bactrim. now on Prednisone as per marketing production specialist. CT chest/not PE study 08/29 revealed extensive bilateral ground glass opacification family intervention specialist considering discharge new CXR Improvement. Triple positive left breast cancer status post Herceptin scan and Taxol 07/15 weekly chemotherapy Normocytic anemia Leukocytosis Monitor CBC daily. Follow trends Patient is afebrile and symptom improvement. leukocytosis likely due to steroids Hyperlipidemia. Stage I diastolic dysfunction currently on Lipitor 80 mg by mouth at bedtime for dyslipidemia 2-D echo revealed EF 55%. Stage I diastolic dysfunction. Mild MR. Depression Continue Cymbalta 60 mg by mouth daily for depression Continue [place] for pain management good family support Urinary Incontinence Continue Detrol LA 2 mg by mouth daily Prophylaxis - GI - Protonix - DVT - SCD/heparin subcutaneous No changes to anterior Assessment. Discharge Planning Once cleared for Discharge by family intervention specialist. Himanshu Jimenez MD Sep 11, 2016 09:38
[2016-09-11] MEDS: SULFAMETHOXAZOLE-TRIMETHOPRIM DS 800-160 MG TAB PO SCH (13:13)
[2016-09-11] MEDS: ONDANSETRON HCL 4 MG/2 ML VIAL IVP PRN (21:08)
[2016-09-12] VITALS (11 sets, daily range): BP systolic 116–148; BP diastolic 61–78; PULSE 93–113; RESP 16–20; TEMP 97.4–98.2; O2SAT 78–99
[2016-09-12] MEDS: HEPARIN SODIUM - SQ 10,000 UNITS/ML VIAL SQ SCH ×3 (04:36→20:17)
[2016-09-12] MEDS: INSULIN NovoLIN REGULAR SUPPLEMENTAL SCALE SQ SCH ×4 (06:30→20:13)
[2016-09-12] MEDS: POLYETHYLENE GLYCOL 17 GM PKG PO SCH (08:54)
[2016-09-12] MEDS: predniSONE 10 MG TAB PO SCH (08:54)
[2016-09-12] MEDS: PANTOPRAZOLE SOD 20 MG DELAYED RELEASE TAB PO SCH (08:54)
[2016-09-12] MEDS: DOCUSATE SODIUM 50 MG/SENNA 8.6 MG TAB PO SCH ×2 (08:54→20:16)
[2016-09-12] MEDS: SODIUM CHLORIDE 0.9% FLUSH 10 ML FLUSH IV FLUSH SCH ×2 (08:54→20:16)
[2016-09-12] MEDS: TOLTERODINE TARTRATE 2 MG CAP LA PO SCH (08:54)
[2016-09-12] MEDS: DULoxetine HCl DR 60 MG CAP PO SCH (08:54)
[2016-09-12] MEDS: ATORVASTATIN 80 MG TAB PO SCH (08:54)
[2016-09-12] MEDS: guaiFENesin E.R. 600 MG TAB PO SCH ×2 (08:54→20:16)
[2016-09-12] MEDS: RESP: ALBUTEROL 2.5 MG/IPRATROPIUM 0.5 MG NEB (SCH) NEB ×2 (09:01→19:53)
--- NOTE | 2016-09-12 11:01 | RADRPT ---
EXAM DATE/TIME: 09/12/2016 10:22 [place] COMPARISON: CT THORAX W/O CONTRAST, September 05, 2016, 15:04. CHEST PA & LAT, September 08, 2016, 13:02. CHEST SINGLE AP , September 09, 2016, 10:12. INDICATIONS : Shortness of breath. MEDICAL HISTORY : Carcinoma, breast SURGICAL HISTORY : Post placement ENCOUNTER: Subsequent ACUITY: 4 - 6 days PAIN SCORE: 0/10 LOCATION: Bilateral chest FINDINGS: Portable AP view of the chest demonstrates a normal-sized cardiac silhouette. [id number] is presen t on the right chest and distal tip is in the right atrium. Lungs are underinflated and there are coa rse interstitial opacities bilaterally most pronounced in the left lower lung zone. No effusion or pn eumothorax is identified. Bones and soft tissues demonstrate no acute finding. CONCLUSION: Stable chest x-ray with peripheral and lower lung zone predominant interstitial opacities bilaterally . Romel Haas MD on September 12, 2016 at 10:57 Board Certified Radiologist. This report was verified electronically.
[2016-09-12] MEDS: ONDANSETRON HCL 4 MG/2 ML VIAL IVP PRN (11:15)
[2016-09-12] MEDS: methylPREDNISolone SOD SUCC 125 MG/2 ML VIAL IV PUSH SCH ×2 (13:32→20:16)
[2016-09-12] MEDS: SULFAMETHOXAZOLE-TRIMETHOPRIM DS 800-160 MG TAB PO SCH (13:33)
--- NOTE | 2016-09-12 13:39 | PD.ONC.PN ---
Subjective Subjective Remarks Afebrile overnight. Was back on NRB mask this afternoon. "I feel good except for my breathing." Objective Data Date Time Temp Pulse Resp B/P Pulse Ox O2 Delivery O2 Flow Rate FiO2 09/12/16 12:00 97.4 112 20 148/64 87 09/12/16 11:20 98 Non-Rebreather 15.00 09/12/16 10:15 78 Nasal Cannula 4.00 09/12/16 09:05 93 09/12/16 09:05 Nasal Cannula 4.50 09/12/16 09:02 90 Nasal Cannula 4.00 09/12/16 08:00 98.2 95 20 120/68 91 09/12/16 04:00 97.7 101 16 122/67 95 09/12/16 00:00 96 Nasal Cannula 4.50 09/12/16 00:00 97.9 106 18 116/63 96 09/11/16 21:00 120 09/11/16 20:00 97.9 111 18 120/56 93 09/11/16 20:00 96 Nasal Cannula 4.50 09/11/16 17:32 95 Nasal Cannula 5.00 09/11/16 16:00 98.5 122 20 111/57 85 09/11/16 15:14 89 Nasal Cannula 4.00 Result Diagram: 09/08/16 0527 Imaging Studies Last 24 hours Impressions Chest X-Ray 09/12/16 0000 Signed Impressions: Service Date/Time: Monday, September 12, 2016 10:22 - CONCLUSION: Stable chest x-ray with peripheral and lower lung zone predominant interstitial opacities bilaterally. Romel Haas MD Administered Medications Medications (Trade) Dose Ordered Sig/Aurelia Route PRN Reason Start Time Stop Time Status Last Admin Dose Admin Guaifenesin (Mucinex Er) 600 mg BID PO 08/26/16 21:00 09/12/16 08:54 Sodium Chloride (NS Flush) 2 ml UNSCH PRN IV FLUSH FLUSH AFTER USING IV ACCESS 08/26/16 20:00 09/07/16 08:43 Sodium Chloride (NS Flush) 2 ml BID IV FLUSH 08/26/16 21:00 09/12/16 08:54 Ondansetron HCl (Zofran Inj) 4 mg Q6H PRN IVP NAUSEA OR VOMITING 08/26/16 20:00 09/12/16 11:15 Heparin Sodium (Porcine) (Heparin Inj) 5,000 units Q8H SQ 08/26/16 20:00 09/12/16 11:15 Acetaminophen (Tylenol) 650 mg Q6H PRN PO FEVER/PAIN SCALE 1 TO 2 08/26/16 20:00 08/30/16 01:45 Senna/Docusate Sodium (Letty-Colace) 1 tab BID PO 08/26/16 21:00 09/12/16 08:54 Lactulose (Lactulose Liq) 30 ml DAILY PRN PO SEVERE CONSITIPATION 08/26/16 20:00 09/01/16 09:06 Duloxetine HCl (Cymbalta Dr) 60 mg DAILY PO 08/27/16 09:00 09/12/16 08:54 Atorvastatin Calcium (Lipitor) 80 mg DAILY PO 08/27/16 09:00 09/12/16 08:54 Tolterodine Tartrate (Detrol La) 2 mg DAILY PO 08/27/16 09:00 09/12/16 08:54 Pantoprazole Sodium (Protonix) 20 mg DAILY PO 08/29/16 11:45 09/12/16 08:54 Insulin Human Regular (NovoLIN R SUPPLEMENTAL SCALE) 1 ACHS SQ 09/01/16 16:00 09/10/16 12:04 Polyethylene Glycol (Miralax) 17 gm DAILY PO 09/02/16 09:00 09/12/16 08:54 Trimethoprim/ Sulfamethoxazole (Bactrim Ds 800-160 Mg) 1 tab Q24H PO 09/05/16 13:00 09/12/16 13:33 Methylprednisolone Sodium Succinate (SoluMEDROL INJ) 60 mg Q12HR IV PUSH 09/12/16 14:00 09/12/16 13:32 Objective Remarks GENERAL: Elderly female, upright in chair next to bed in [facility]. SKIN: Warm and dry. HEAD: Normocephalic. EYES: No injection or drainage. NECK: Supple, trachea midline. CARDIOVASCULAR: Regular rate and rhythm RESPIRATORY: diminished at bases. occasional rhonchi. On NRB mask GASTROINTESTINAL: Abdomen soft, non-tender, nondistended. EXTREMITIES: No cyanosis NEUROLOGICAL: aox3, normal speech. moving extremities. Assessment/Plan Problem List: (1) Hypoxia Status: Acute Plan: 09/10: continue steroids. check CBC today --ECHO = no decrease LVEF --pulmonary toxicity either due to Herceptin or Taxol --dr. Hammond, pulmonology following --V/Q scan in the emergency room which was low probability for pulmonary embolism. (2) Breast CA Status: Acute Plan: no further chemo. --started on weekly Herceptin and Taxol chemotherapy on July 15. Assessment 76y/o with triple positive left breast cancer admitted with respiratory insufficiency. Attending Statement c/o HURLEY. on steroid and O2 will follow. Josey Gandara Sep 12, 2016 13:39 Tiburcio Kirk MD Sep 12, 2016 23:32
[2016-09-12 14:33] LABS: BLOOD GAS BASE EXCESS 0.5 mmol/L (-2-2); BLOOD GAS CARBOXYHEMOGLOBIN 0.7 % (0-4); BLOOD GAS HCO3 24 mmol/L (22-26); BLOOD GAS O2 HGB SATURATION 96 % (90-100); BLOOD GAS OXYGEN CONTENT 20.3 Vol % (12.0-20.0); BLOOD GAS PCO2 36 mmHg (38-42); BLOOD GAS PO2 116 mmHg (61-120); BLOOD GAS TOTAL HGB 14.9 G/DL (12.0-16.0); TEMP CORR TO 98.6
[2016-09-12 14:34] LABS: CRITICAL VALUE NO; DRAW SITE RT RADIAL; LITER FLOW 15 L/M; NUMBER OF ARTERIAL PUNCTURES 1; OXYGEN DEVICE PRB; STAT NO; ULNAR PULSE PRESENT
--- NOTE | 2016-09-12 16:33 | RADRPT ---
EXAM DATE/TIME: 09/12/2016 16:11 [place] COMPARISON: CT THORAX W/O CONTRAST, September 05, 2016, 15:04. INDICATIONS : Patient with short of breathinterstitial lung disease follow up. RADIATION DOSE: 5.37 CTDIvol (mGy) MEDICAL HISTORY : Cardiovascular disease. Carcinoma, breast. SURGICAL HISTORY : Appendectomy. ENCOUNTER: Initial ACUITY: 1 day PAIN SCALE: 0/10 LOCATION: chest TECHNIQUE: Volumetric scanning of the chest was performed. Using automated exposure control and adjustment of t he mA and/or kV according to patient size, radiation dose was kept as low as reasonably achievable to obtain optimal diagnostic quality images. DICOM format image data is available electronically for r eview and comparison. FINDINGS: Increasing coarse predominantly interstitial opacities are present in both lungs with scattered groun dglass opacity and traction bronchiectasis. The pulmonary are prominent centrally. There is no pneum othorax. There is no significant effusion. There is no significant adenopathy. Mitral valvular saray cifications are noted. There is no pericardial effusion. CONCLUSION: Interstitial changes are becoming more coarse over time. There is no pneumothorax, pericardial effusion, or adenopathy. Soy Harper MD FACR on September 12, 2016 at 16:28 Board Certified Radiologist. This report was verified electronically.
--- NOTE | 2016-09-12 17:19 | HHI.PR ---
Subjective Remarks Bulk Mail Technician Notes: The patient is a 76 year-old female with past medical history of left-sided breast cancer diagnosed in April of 2016, currently on chemotherapy in the form of Taxol and Herceptin. She was admitted to [facility] on August 26 under the hospitalist service after she was sent to the ER by her oncologist, Dr. Kirk, secondary to hypoxemia following chemotherapy. She was noted to have O2 saturation of 75% on room air and upon EMS arrival she was placed on 4 liters oxygen when her saturation improved to 92%. She underwent a VQ scan of the chest which showed low probability for pulmonary embolism and chest x-ray showed mild interstitial prominence suggesting vascular congestion or volume overload. The patient underwent CTA of the chest as well which showed no evidence of pulmonary embolism, however, it showed extensive ground-glass opacities and questionable pulmonary fibrosis per report. The patient reported progressive worsening of shortness of breath for the past one week prior to admission. She denies any chest pain, shortness of breath, cough, or any constitutional symptoms. In addition she denies any exposure to sick contacts. She has been receiving chemotherapy every Monday for the past 7 weeks and is being followed by Dr. Kirk, the patient's oncologist. The patient denies any use of oxygen at home and she is a nonsmoker. She has been requiring increased O2 and was subsequently transferred to ICU. Critical care medicine was consulted for critical care management. The patient is also being followed by Dr. Hammond from pulmonary service, Dr. Louie from cardiology. ABG was performed at 04:27 this morning which showed pH of 7.41, CO2 37, pAO2 59, bicarb 23, sats of 88% on 9 liter simple mask. Chest x-ray from this morning showed increase in bilateral interstitial opacities. The patient has been placed on a non-rebreather and she was given Lasix 40 mg IV push at 10:34 this morning. The patient denies any nausea, vomiting, abdominal pain. In addition she denies any orthopnea, PND or edema of lower extremities. 08/29 No acute events overnight. On High flow oxygen with 70% FIO2. Afebrile. 08/30 Patient remains on high flow oxygen with good sats. CXR this morning no significant changes. 08/31 No events overnight. On high flow NC 25L with 75%FIO2, Afebrile. 09/01: Remains on high flow nasal cannula 30 L 65%. Afebrile. Mentating fine. Denies shortness of breath currently. 09/02: Afebrile. FiO2 down to 50%. 25 L. We'll attempt to get out of bed to chair daily. Tolerating diet. Positive BM. 09/03: Down to 4 L nasal cannula. Appears much improved. Bit itchy yesterday tolerating well. Tolerating diet. Hospitalist Notes: 09/08: Patient seen in her bedroom, asked by Nurse And Charge nurse to evaluate the patient and probable discharge, no new records in ERM by any specialist asked for six minute walk for discharge, then seen by internal medicine specialist not clear for discharge yet. 09/09: Seen in her bedroom and discussed with Nurse Mr. Alvarado that the patient had possible aspiration with the need for 100% Non rebreather mask, at this time continue with the mask with Oxygen saturation 92%. No nausea, vomit or diarrhea, seen in Intensive Care Unit. May transfer to the Medical Floor if okay with internal medicine specialist. 09/10: Stable in her bedroom keep better oxygen saturation, at this time having a respiratory therapy, no complaint, not yet cleared for discharge by internal medicine specialist. 09/11: Seen in her bedroom, no improving, continue with high oxygen demand, on Steroids. 09/12: Worsening condition today, she had to placed on Non rebreather mask, discussed with her and her about DNR status and DNI she states she is full code continue management for Respiratory insufficiency. Objective Vital Signs Date Time Temp Pulse Resp B/P Pulse Ox O2 Delivery O2 Flow Rate FiO2 09/12/16 16:00 97.5 108 20 131/78 99 09/12/16 12:00 97.4 112 20 148/64 87 09/12/16 11:20 98 Non-Rebreather 15.00 09/12/16 10:15 78 Nasal Cannula 4.00 09/12/16 09:05 93 09/12/16 09:05 Nasal Cannula 4.50 09/12/16 09:02 90 Nasal Cannula 4.00 09/12/16 08:00 98.2 95 20 120/68 91 09/12/16 04:00 97.7 101 16 122/67 95 09/12/16 00:00 96 Nasal Cannula 4.50 09/12/16 00:00 97.9 106 18 116/63 96 09/11/16 21:00 120 09/11/16 20:00 97.9 111 18 120/56 93 09/11/16 20:00 96 Nasal Cannula 4.50 09/11/16 17:32 95 Nasal Cannula 5.00 I/O 09/11/16 09/11/16 09/11/16 09/12/16 09/12/16 09/12/16 07:00 15:00 23:00 07:00 15:00 23:00 Intake Total 200 ml 480 ml 480 ml Balance 200 ml 480 ml 480 ml Intake Oral 200 ml 480 ml 480 ml # Voids 2 3 Result Diagram: 09/08/16 0527 Imaging Last Impressions Chest X-Ray 09/12/16 0000 Signed Impressions: Service Date/Time: Monday, September 12, 2016 10:22 - CONCLUSION: Stable chest x-ray with peripheral and lower lung zone predominant interstitial opacities bilaterally. Romel Haas MD Chest CT 09/12/16 0000 Signed Impressions: Service Date/Time: Monday, September 12, 2016 16:11 - CONCLUSION: Interstitial changes are becoming more coarse over time. There is no pneumothorax, pericardial effusion, or adenopathy. Soy Harper MD FACR Lung Scan- Nuclear Medicine 08/26/16 0000 Signed Impressions: Service Date/Time: Friday, August 26, 2016 20:26 - CONCLUSION: 1. Low probability for pulmonary embolus. Cehco Conner MD Procedures None Other Results Laboratory Tests Test 09/08/16 09/12/16 05:27 14:23 White Blood Count 24.9 TH/MM3 Red Blood Count 4.29 MIL/MM3 Hemoglobin 11.6 GM/DL Hematocrit 36.3 % Mean Corpuscular Volume 84.6 FL Mean Corpuscular Hemoglobin 27.1 PG Mean Corpuscular Hemoglobin 32.0 % Concent Red Cell Distribution Width 16.4 % Platelet Count 256 TH/MM3 Mean Platelet Volume 9.5 FL Neutrophils (%) (Auto) 85.2 % Lymphocytes (%) (Auto) 4.7 % Monocytes (%) (Auto) 10.0 % Eosinophils (%) (Auto) 0.1 % Basophils (%) (Auto) 0.0 % Neutrophils # (Auto) 21.2 TH/MM3 Lymphocytes # (Auto) 1.2 TH/MM3 Monocytes # (Auto) 2.5 TH/MM3 Eosinophils # (Auto) 0.0 TH/MM3 Basophils # (Auto) 0.0 TH/MM3 CBC Comment AUTO DIFF Differential Total Cells 100 Counted Neutrophils % (Manual) 76 % Band Neutrophils % 7 % Lymphocytes % 3 % Monocytes % 10 % Neutrophils # (Manual) 21.7 TH/MM3 Myelocytes 4 % Differential Comment FINAL DIFF MANUAL Platelet Estimate NORMAL Platelet Morphology Comment ENLARGED Ovalocytes 1+ Blood Gas Puncture Site RT RADIAL Blood Gas Patient Temperature 98.6 Blood Gas HCO3 24 mmol/L Blood Gas Base Excess 0.5 mmol/L Blood Gas Oxygen Saturation 96 % Arterial Blood pH 7.44 Arterial Blood Partial 36 mmHg Pressure CO2 Arterial Blood Partial 116 mmHg Pressure O2 Arterial Blood Oxygen Content 20.3 Vol % Arterial Blood 0.7 % Carboxyhemoglobin Arterial Blood Methemoglobin 1.0 % Blood Gas Hemoglobin 14.9 G/DL Oxygen Delivery Device PRB Blood Gas Liter Flow 15 L/M Objective Remarks GENERAL: No acute distress. SKIN: Warm and dry. No rash HEAD: Normocephalic. EYES: No scleral icterus. No injection or drainage. NECK: Supple, trachea midline. No JVD or lymphadenopathy. CARDIOVASCULAR: Regular rate and rhythm without murmurs, gallops, or rubs. RESPIRATORY: decreased breath sounds bilateral, coarse breath sounds. GASTROINTESTINAL: Abdomen soft, non-tender, nondistended. Hypoactive bowel sounds MUSCULOSKELETAL: No significant peripheral edema. BACK: Nontender without obvious deformity. No CVA tenderness. Medications and IVs Current Medications Medications (Trade) Dose Ordered Sig/Aurelia Route Start Time Stop Time Status Last Admin (Mucinex Er) 600 mg BID PO 08/26/16 21:00 09/12/16 08:54 (NS Flush) 2 ml UNSCH PRN IV FLUSH 08/26/16 20:00 09/07/16 08:43 (NS Flush) 2 ml BID IV FLUSH 08/26/16 21:00 09/12/16 08:54 (Zofran Inj) 4 mg Q6H PRN IVP 08/26/16 20:00 09/12/16 11:15 (Heparin Inj) 5,000 units Q8H SQ 08/26/16 20:00 09/12/16 11:15 (Tylenol) 650 mg Q6H PRN PO 08/26/16 20:00 08/30/16 01:45 (Manns Choice 5-325 Mg) 1 tab Q4H PRN PO 08/26/16 20:00 (Morphine Inj) 2 mg Q3H PRN IV 08/26/16 20:00 (Letty-Colace) 1 tab BID PO 08/26/16 21:00 09/12/16 08:54 (Milk Of Magnesia Liq) 30 ml Q12H PRN PO 08/26/16 20:00 (Senokot) 17.2 mg Q12H PRN PO 08/26/16 20:00 (Dulcolax Supp) 10 mg DAILY PRN RECTAL 08/26/16 20:00 (Lactulose Liq) 30 ml DAILY PRN PO 08/26/16 20:00 09/01/16 09:06 (Cymbalta Dr) 60 mg DAILY PO 08/27/16 09:00 09/12/16 08:54 (Lipitor) 80 mg DAILY PO 08/27/16 09:00 09/12/16 08:54 (Detrol La) 2 mg DAILY PO 08/27/16 09:00 09/12/16 08:54 (Vasotec Inj) 1.25 mg Q6H PRN IV 08/28/16 10:30 (D50w (Vial) Inj) 50 ml UNSCH PRN IV 08/28/16 12:30 (Glucagon Inj) 1 mg UNSCH PRN OTHER 08/28/16 12:30 Miscellaneous Information Patient in critical care unit? Ass... Q361D .XX 08/28/16 19:30 (Protonix) 20 mg DAILY PO 08/29/16 11:45 09/12/16 08:54 (NovoLIN R SUPPLEMENTAL SCALE) 1 ACHS SQ 09/01/16 16:00 09/10/16 12:04 (Miralax) 17 gm DAILY PO 09/02/16 09:00 09/12/16 08:54 (Bactrim Ds 800-160 Mg) 1 tab Q24H PO 09/05/16 13:00 09/12/16 13:33 (SoluMEDROL INJ) 60 mg Q12HR IV PUSH 09/12/16 14:00 09/12/16 13:32 A/P Assessment and Plan Acute hypoxemic respiratory failure- improving Extensive ground-glass opacities. Ddx: hypersensitivity pneumonitis vs chemotherapy induced pulmonary toxicity/ interstitial pneumonitis versus other causes of valvulitis Continue Oxygen by NC, asked for six minute walk for discharge on Oxygen Bronchodilator, Mucolytic and incentive spirometry, Bactrim. now on Prednisone as per asset specialist. CT chest/not PE study 08/29 revealed extensive bilateral ground glass opacification Today worsening condition has been placed on Non rebreather mas. internal medicine specialist following. Triple positive left breast cancer status post Herceptin scan and Taxol 07/15 weekly chemotherapy Normocytic anemia Leukocytosis Monitor CBC daily. Follow trends Patient is afebrile and symptom improvement. leukocytosis likely due to steroids Hyperlipidemia. Stage I diastolic dysfunction currently on Lipitor 80 mg by mouth at bedtime for dyslipidemia 2-D echo revealed EF 55%. Stage I diastolic dysfunction. Mild MR. Depression Continue Cymbalta 60 mg by mouth daily for depression Continue Manns Choice for pain management good family support Urinary Incontinence Continue Detrol LA 2 mg by mouth daily Prophylaxis - GI - Protonix - DVT - SCD/heparin subcutaneous Discussed with patient and her in the room. she wants to continue Full Code. Discharge Planning Once cleared for Discharge by internal medicine specialist. Himanshu Jimenez MD Sep 12, 2016 17:19
[2016-09-12 19:22] LABS: AUTOMATED NEUTROPHIL # 26.9 TH/MM3 (1.8-7.7); BASOPHIL # 0.1 TH/MM3 (0-0.2); BASOPHIL % 0.2 % (0.0-2.0); HEMATOCRIT 34.9 % (35.0-46.0); LYMPHOCYTE # 0.9 TH/MM3 (1.0-4.8); MEAN CELL VOLUME 83.8 FL (80.0-100.0); MEAN CORPUSCULAR HGB CONC 33.4 % (32.0-36.0); MONO % 2.2 % (0.0-8.0); NEUT % 94.6 % (16.0-70.0); PLATELET COUNT 194 TH/MM3 (150-450); RED BLOOD COUNT 4.16 MIL/MM3 (4.00-5.30); RED CELL DISTRIBUTION WIDTH 16.5 % (11.6-17.2); WHITE BLOOD COUNT 28.5 TH/MM3 (4.0-11.0)
[2016-09-12 19:27] LABS: HEMO FLAGS AUTO DIFF
[2016-09-12 19:54] LABS: WESTERGREN SEDIMENTATION RATE 24 mm/hr (0-30)
[2016-09-12 19:59] LABS: BANDS 7 % (0-6); MYELOCYTES 1 % (0-0); NEUTROPHIL # MANUAL DIFF 26.8 TH/MM3 (1.8-7.7); PLATELET ESTIMATE SMEAR NORMAL (NORMAL); PLATELET MORPHOLOGY NORMAL (NORMAL); POLYS (SEG NEUTROPHILS) 86 % (16-70); SCAN/DIFF FINAL DIFF MANUAL; WBC DIFF SAMPLE 100
[2016-09-13] VITALS (10 sets, daily range): BP systolic 123–133; BP diastolic 60–75; PULSE 99–112; RESP 17–20; TEMP 96.9–98.6; O2SAT 92–99
[2016-09-13] MEDS: HEPARIN SODIUM - SQ 10,000 UNITS/ML VIAL SQ SCH ×3 (04:06→21:54)
[2016-09-13] MEDS: INSULIN NovoLIN REGULAR SUPPLEMENTAL SCALE SQ SCH ×4 (07:00→21:59)
[2016-09-13] MEDS: RESP: ALBUTEROL 2.5 MG/IPRATROPIUM 0.5 MG NEB (SCH) NEB ×2 (08:17→20:46)
[2016-09-13] MEDS: TOLTERODINE TARTRATE 2 MG CAP LA PO SCH (08:25)
[2016-09-13] MEDS: DULoxetine HCl DR 60 MG CAP PO SCH (08:25)
[2016-09-13] MEDS: PANTOPRAZOLE SOD 20 MG DELAYED RELEASE TAB PO SCH (08:25)
[2016-09-13] MEDS: guaiFENesin E.R. 600 MG TAB PO SCH ×2 (08:25→21:53)
[2016-09-13] MEDS: POLYETHYLENE GLYCOL 17 GM PKG PO SCH (08:25)
[2016-09-13] MEDS: ATORVASTATIN 80 MG TAB PO SCH (08:25)
[2016-09-13] MEDS: methylPREDNISolone SOD SUCC 125 MG/2 ML VIAL IV PUSH SCH ×2 (08:26→16:55)
[2016-09-13] MEDS: DOCUSATE SODIUM 50 MG/SENNA 8.6 MG TAB PO SCH ×2 (08:26→21:53)
[2016-09-13] MEDS: SODIUM CHLORIDE 0.9% FLUSH 10 ML FLUSH IV FLUSH SCH ×2 (08:26→21:53)
--- NOTE | 2016-09-13 09:26 | HHI.PR ---
Subjective Remarks Senior Gis Analyst Notes: The patient is a 76 year-old female with past medical history of left-sided breast cancer diagnosed in April of 2016, currently on chemotherapy in the form of Taxol and Herceptin. She was admitted to [facility] on August 26 under the hospitalist service after she was sent to the ER by her oncologist, Dr. Kirk, secondary to hypoxemia following chemotherapy. She was noted to have O2 saturation of 75% on room air and upon EMS arrival she was placed on 4 liters oxygen when her saturation improved to 92%. She underwent a VQ scan of the chest which showed low probability for pulmonary embolism and chest x-ray showed mild interstitial prominence suggesting vascular congestion or volume overload. The patient underwent CTA of the chest as well which showed no evidence of pulmonary embolism, however, it showed extensive ground-glass opacities and questionable pulmonary fibrosis per report. The patient reported progressive worsening of shortness of breath for the past one week prior to admission. She denies any chest pain, shortness of breath, cough, or any constitutional symptoms. In addition she denies any exposure to sick contacts. She has been receiving chemotherapy every Monday for the past 7 weeks and is being followed by Dr. Kirk, the patient's oncologist. The patient denies any use of oxygen at home and she is a nonsmoker. She has been requiring increased O2 and was subsequently transferred to ICU. Critical care medicine was consulted for critical care management. The patient is also being followed by Dr. Hammond from pulmonary service, Dr. Louie from cardiology. ABG was performed at 04:27 this morning which showed pH of 7.41, CO2 37, pAO2 59, bicarb 23, sats of 88% on 9 liter simple mask. Chest x-ray from this morning showed increase in bilateral interstitial opacities. The patient has been placed on a non-rebreather and she was given Lasix 40 mg IV push at 10:34 this morning. The patient denies any nausea, vomiting, abdominal pain. In addition she denies any orthopnea, PND or edema of lower extremities. 08/29 No acute events overnight. On High flow oxygen with 70% FIO2. Afebrile. 08/30 Patient remains on high flow oxygen with good sats. CXR this morning no significant changes. 08/31 No events overnight. On high flow NC 25L with 75%FIO2, Afebrile. 09/01: Remains on high flow nasal cannula 30 L 65%. Afebrile. Mentating fine. Denies shortness of breath currently. 09/02: Afebrile. FiO2 down to 50%. 25 L. We'll attempt to get out of bed to chair daily. Tolerating diet. Positive BM. 09/03: Down to 4 L nasal cannula. Appears much improved. Bit itchy yesterday tolerating well. Tolerating diet. Hospitalist Notes: 09/08: Patient seen in her bedroom, asked by Nurse And Charge nurse to evaluate the patient and probable discharge, no new records in ERM by any specialist asked for six minute walk for discharge, then seen by diesel engine specialist not clear for discharge yet. 09/09: Seen in her bedroom and discussed with Nurse Mr. Alvarado that the patient had possible aspiration with the need for 100% Non rebreather mask, at this time continue with the mask with Oxygen saturation 92%. No nausea, vomit or diarrhea, seen in Intensive Care Unit. May transfer to the Medical Floor if okay with diesel engine specialist. 09/10: Stable in her bedroom keep better oxygen saturation, at this time having a respiratory therapy, no complaint, not yet cleared for discharge by diesel engine specialist. 09/11: Seen in her bedroom, no improving, continue with high oxygen demand, on Steroids. 09/12: Worsening condition today, she had to placed on Non rebreather mask, discussed with her and her about DNR status and DNI she states she is full code continue management for Respiratory insufficiency. 09/13: Seen in her bedroom and discussed with nurse, The patient has elected to continue full management, she has poor short term Prognosis, still on Non Rebreather mask No nausea, vomit or diarrhea Objective Vital Signs Date Time Temp Pulse Resp B/P Pulse Ox O2 Delivery O2 Flow Rate FiO2 09/13/16 08:17 92 Partial Rebreather 15.00 09/13/16 07:42 100 09/13/16 04:00 97.5 102 20 125/67 99 09/13/16 00:00 98.5 107 20 133/69 96 09/12/16 20:00 98.2 113 20 124/61 98 09/12/16 19:54 98 Partial Rebreather 13.00 09/12/16 16:00 97.5 108 20 131/78 99 09/12/16 12:00 97.4 112 20 148/64 87 09/12/16 11:20 98 Non-Rebreather 15.00 09/12/16 10:15 78 Nasal Cannula 4.00 I/O 09/12/16 09/12/16 09/12/16 09/13/16 09/13/16 09/13/16 07:00 15:00 23:00 07:00 15:00 23:00 Intake Total 480 ml 240 ml Balance 480 ml 240 ml Intake Oral 480 ml 240 ml # Voids 3 1 1 # Bowel Movements 0 0 Result Diagram: 09/12/16 1900 Imaging Last Impressions Chest X-Ray 09/12/16 0000 Signed Impressions: Service Date/Time: Monday, September 12, 2016 10:22 - CONCLUSION: Stable chest x-ray with peripheral and lower lung zone predominant interstitial opacities bilaterally. Romel Haas MD Chest CT 09/12/16 0000 Signed Impressions: Service Date/Time: Monday, September 12, 2016 16:11 - CONCLUSION: Interstitial changes are becoming more coarse over time. There is no pneumothorax, pericardial effusion, or adenopathy. Soy Harper MD FACR Lung Scan-V Nuclear Medicine 08/26/16 0000 Signed Impressions: Service Date/Time: Friday, August 26, 2016 20:26 - CONCLUSION: 1. Low probability for pulmonary embolus. Checo Conner MD Procedures None Other Results Laboratory Tests Test 09/12/16 09/12/16 14:23 19:00 Blood Gas Puncture Site RT RADIAL Blood Gas Patient Temperature 98.6 Blood Gas HCO3 24 mmol/L Blood Gas Base Excess 0.5 mmol/L Blood Gas Oxygen Saturation 96 % Arterial Blood pH 7.44 Arterial Blood Partial 36 mmHg Pressure CO2 Arterial Blood Partial 116 mmHg Pressure O2 Arterial Blood Oxygen Content 20.3 Vol % Arterial Blood 0.7 % Carboxyhemoglobin Arterial Blood Methemoglobin 1.0 % Blood Gas Hemoglobin 14.9 G/DL Oxygen Delivery Device PRB Blood Gas Liter Flow 15 L/M White Blood Count 28.5 TH/MM3 Red Blood Count 4.16 MIL/MM3 Hemoglobin 11.6 GM/DL Hematocrit 34.9 % Mean Corpuscular Volume 83.8 FL Mean Corpuscular Hemoglobin 28.0 PG Mean Corpuscular Hemoglobin 33.4 % Concent Red Cell Distribution Width 16.5 % Platelet Count 194 TH/MM3 Mean Platelet Volume 10.0 FL Neutrophils (%) (Auto) 94.6 % Lymphocytes (%) (Auto) 3.0 % Monocytes (%) (Auto) 2.2 % Eosinophils (%) (Auto) 0.0 % Basophils (%) (Auto) 0.2 % Neutrophils # (Auto) 26.9 TH/MM3 Lymphocytes # (Auto) 0.9 TH/MM3 Monocytes # (Auto) 0.6 TH/MM3 Eosinophils # (Auto) 0.0 TH/MM3 Basophils # (Auto) 0.1 TH/MM3 CBC Comment AUTO DIFF Differential Total Cells 100 Counted Neutrophils % (Manual) 86 % Band Neutrophils % 7 % Lymphocytes % 6 % Neutrophils # (Manual) 26.8 TH/MM3 Myelocytes 1 % Differential Comment FINAL DIFF MANUAL Platelet Estimate NORMAL Platelet Morphology Comment NORMAL Red Cell Morphology Comment NORMAL Erythrocyte Sedimentation Rate 24 mm/hr B-Type Natriuretic Peptide 21 PG/ML Objective Remarks GENERAL: No acute distress. SKIN: Warm and dry. No rash HEAD: Normocephalic. EYES: No scleral icterus. No injection or drainage. NECK: Supple, trachea midline. No JVD or lymphadenopathy. CARDIOVASCULAR: Regular rate and rhythm without murmurs, gallops, or rubs. RESPIRATORY: decreased breath sounds bilateral, coarse breath sounds. GASTROINTESTINAL: Abdomen soft, non-tender, nondistended. Hypoactive bowel sounds MUSCULOSKELETAL: No significant peripheral edema. BACK: Nontender without obvious deformity. No CVA tenderness. Medications and IVs Current Medications Medications (Trade) Dose Ordered Sig/Aurelia Route Start Time Stop Time Status Last Admin (Mucinex Er) 600 mg BID PO 08/26/16 21:00 09/13/16 08:25 (NS Flush) 2 ml UNSCH PRN IV FLUSH 08/26/16 20:00 09/07/16 08:43 (NS Flush) 2 ml BID IV FLUSH 08/26/16 21:00 09/13/16 08:26 (Zofran Inj) 4 mg Q6H PRN IVP 08/26/16 20:00 09/12/16 11:15 (Heparin Inj) 5,000 units Q8H SQ 08/26/16 20:00 09/13/16 04:06 (Tylenol) 650 mg Q6H PRN PO 08/26/16 20:00 08/30/16 01:45 ([place] 5-325 Mg) 1 tab Q4H PRN PO 08/26/16 20:00 (Morphine Inj) 2 mg Q3H PRN IV 08/26/16 20:00 (Letty-Colace) 1 tab BID PO 08/26/16 21:00 09/13/16 08:26 (Milk Of Magnesia Liq) 30 ml Q12H PRN PO 08/26/16 20:00 (Senokot) 17.2 mg Q12H PRN PO 08/26/16 20:00 (Dulcolax Supp) 10 mg DAILY PRN RECTAL 08/26/16 20:00 (Lactulose Liq) 30 ml DAILY PRN PO 08/26/16 20:00 09/01/16 09:06 (Cymbalta Dr) 60 mg DAILY PO 08/27/16 09:00 09/13/16 08:25 (Lipitor) 80 mg DAILY PO 08/27/16 09:00 09/13/16 08:25 (Detrol La) 2 mg DAILY PO 08/27/16 09:00 09/13/16 08:25 (Vasotec Inj) 1.25 mg Q6H PRN IV 08/28/16 10:30 (D50w (Vial) Inj) 50 ml UNSCH PRN IV 08/28/16 12:30 (Glucagon Inj) 1 mg UNSCH PRN OTHER 08/28/16 12:30 Miscellaneous Information Patient in critical care unit? Ass... Q361D .XX 08/28/16 19:30 (Protonix) 20 mg DAILY PO 08/29/16 11:45 09/13/16 08:25 (NovoLIN R SUPPLEMENTAL SCALE) 1 ACHS SQ 09/01/16 16:00 09/12/16 20:13 (Miralax) 17 gm DAILY PO 09/02/16 09:00 09/13/16 08:25 (SoluMEDROL INJ) 60 mg Q8H IV PUSH 09/13/16 16:00 (Bactrim Ds 800-160 Mg) 1 tab BID PO 09/13/16 09:00 A/P Assessment and Plan Acute hypoxemic respiratory failure- improving Extensive ground-glass opacities. Ddx: hypersensitivity pneumonitis vs chemotherapy induced pulmonary toxicity/ interstitial pneumonitis versus other causes of valvulitis Continue Oxygen by NC, asked for six minute walk for discharge on Oxygen Bronchodilator, Mucolytic and incentive spirometry, Bactrim. now on Prednisone as per application specialist. CT chest/not PE study 08/29 revealed extensive bilateral ground glass opacification Today worsening condition has been placed on Non rebreather mas. diesel engine specialist following. Triple positive left breast cancer status post Herceptin scan and Taxol 07/15 weekly chemotherapy Normocytic anemia Leukocytosis No further Chemotherapy as per certified medical coding specialist. Monitor CBC daily. Follow trends Patient is afebrile and symptom improvement. leukocytosis likely due to steroids Hyperlipidemia. Stage I diastolic dysfunction currently on Lipitor 80 mg by mouth at bedtime for dyslipidemia 2-D echo revealed EF 55%. Stage I diastolic dysfunction. Mild MR. Depression Continue Cymbalta 60 mg by mouth daily for depression Continue [place] for pain management good family support Urinary Incontinence Continue Detrol LA 2 mg by mouth daily Prophylaxis - GI - Protonix - DVT - SCD/heparin subcutaneous Discussed with patient and nurse, all questions answered to the best of my abilities. Discharge Planning Once cleared for Discharge by diesel engine specialist. Himanshu Jimenez MD Sep 13, 2016 09:26
--- NOTE | 2016-09-13 10:32 | PD.ONC.PN ---
Subjective Subjective Remarks Afebrile overnight. Remains on NRB mask. Getting tired of being in the hospital. says she will try another week, and then may be considering comfort measures. Objective Data Date Time Temp Pulse Resp B/P Pulse Ox O2 Delivery O2 Flow Rate FiO2 09/13/16 08:17 92 Partial Rebreather 15.00 09/13/16 08:02 96.9 99 17 123/70 94 09/13/16 07:42 100 09/13/16 04:00 97.5 102 20 125/67 99 09/13/16 00:00 98.5 107 20 133/69 96 09/12/16 20:00 98.2 113 20 124/61 98 09/12/16 19:54 98 Partial Rebreather 13.00 09/12/16 16:00 97.5 108 20 131/78 99 09/12/16 12:00 97.4 112 20 148/64 87 09/12/16 11:20 98 Non-Rebreather 15.00 Result Diagram: 09/12/16 1900 Laboratory Results Laboratory Tests Test 09/12/16 09/12/16 14:23 19:00 Blood Gas Puncture Site RT RADIAL Blood Gas Patient Temperature 98.6 Blood Gas HCO3 24 mmol/L Blood Gas Base Excess 0.5 mmol/L Blood Gas Oxygen Saturation 96 % Arterial Blood pH 7.44 Arterial Blood Partial 36 mmHg Pressure CO2 Arterial Blood Partial 116 mmHg Pressure O2 Arterial Blood Oxygen Content 20.3 Vol % Arterial Blood 0.7 % Carboxyhemoglobin Arterial Blood Methemoglobin 1.0 % Blood Gas Hemoglobin 14.9 G/DL Oxygen Delivery Device PRB Blood Gas Liter Flow 15 L/M White Blood Count 28.5 TH/MM3 Red Blood Count 4.16 MIL/MM3 Hemoglobin 11.6 GM/DL Hematocrit 34.9 % Mean Corpuscular Volume 83.8 FL Mean Corpuscular Hemoglobin 28.0 PG Mean Corpuscular Hemoglobin 33.4 % Concent Red Cell Distribution Width 16.5 % Platelet Count 194 TH/MM3 Mean Platelet Volume 10.0 FL Neutrophils (%) (Auto) 94.6 % Lymphocytes (%) (Auto) 3.0 % Monocytes (%) (Auto) 2.2 % Eosinophils (%) (Auto) 0.0 % Basophils (%) (Auto) 0.2 % Neutrophils # (Auto) 26.9 TH/MM3 Lymphocytes # (Auto) 0.9 TH/MM3 Monocytes # (Auto) 0.6 TH/MM3 Eosinophils # (Auto) 0.0 TH/MM3 Basophils # (Auto) 0.1 TH/MM3 CBC Comment AUTO DIFF Differential Total Cells 100 Counted Neutrophils % (Manual) 86 % Band Neutrophils % 7 % Lymphocytes % 6 % Neutrophils # (Manual) 26.8 TH/MM3 Myelocytes 1 % Differential Comment FINAL DIFF MANUAL Platelet Estimate NORMAL Platelet Morphology Comment NORMAL Red Cell Morphology Comment NORMAL Erythrocyte Sedimentation Rate 24 mm/hr B-Type Natriuretic Peptide 21 PG/ML Administered Medications Medications (Trade) Dose Ordered Sig/Aurelia Route PRN Reason Start Time Stop Time Status Last Admin Dose Admin Guaifenesin (Mucinex Er) 600 mg BID PO 08/26/16 21:00 09/13/16 08:25 Sodium Chloride (NS Flush) 2 ml UNSCH PRN IV FLUSH FLUSH AFTER USING IV ACCESS 08/26/16 20:00 09/07/16 08:43 Sodium Chloride (NS Flush) 2 ml BID IV FLUSH 08/26/16 21:00 09/13/16 08:26 Ondansetron HCl (Zofran Inj) 4 mg Q6H PRN IVP NAUSEA OR VOMITING 08/26/16 20:00 09/12/16 11:15 Heparin Sodium (Porcine) (Heparin Inj) 5,000 units Q8H SQ 08/26/16 20:00 09/13/16 04:06 Acetaminophen (Tylenol) 650 mg Q6H PRN PO FEVER/PAIN SCALE 1 TO 2 08/26/16 20:00 08/30/16 01:45 Senna/Docusate Sodium (Letty-Colace) 1 tab BID PO 08/26/16 21:00 09/13/16 08:26 Lactulose (Lactulose Liq) 30 ml DAILY PRN PO SEVERE CONSITIPATION 08/26/16 20:00 09/01/16 09:06 Duloxetine HCl (Cymbalta Dr) 60 mg DAILY PO 08/27/16 09:00 09/13/16 08:25 Atorvastatin Calcium (Lipitor) 80 mg DAILY PO 08/27/16 09:00 09/13/16 08:25 Tolterodine Tartrate (Detrol La) 2 mg DAILY PO 08/27/16 09:00 09/13/16 08:25 Pantoprazole Sodium (Protonix) 20 mg DAILY PO 08/29/16 11:45 09/13/16 08:25 Insulin Human Regular (NovoLIN R SUPPLEMENTAL SCALE) 1 ACHS SQ 09/01/16 16:00 09/12/16 20:13 Polyethylene Glycol (Miralax) 17 gm DAILY PO 09/02/16 09:00 09/13/16 08:25 Objective Remarks GENERAL: Elderly female, upright in bed, appears sad, fatigued. SKIN: Warm and dry. HEAD: Normocephalic. EYES: No injection or drainage. NECK: Supple, trachea midline. CARDIOVASCULAR: Regular rate and rhythm RESPIRATORY: diminished at bases. scattered rhonchi. on non-rebreather mask GASTROINTESTINAL: Abdomen soft, non-tender, nondistended. EXTREMITIES: No cyanosis NEUROLOGICAL: awake and alert, normal speech. moving all extremities. Assessment/Plan Problem List: (1) Hypoxia Status: Acute Plan: 09/13: continue steroids and antibiotics. discussed with patient comfort measures as option. she wants to try aggressive measures for another week. --ECHO = no decrease LVEF --pulmonary toxicity either due to Herceptin or Taxol --dr. Hammond, pulmonology following --V/Q scan in the emergency room --> low probability for pulmonary embolism. --CT chest, 09/12: interstitial changes becoming more coarse with time. (2) Breast CA Status: Acute Plan: no further chemo. --started on weekly Herceptin and Taxol chemotherapy on July 15. Assessment 76y/o with triple positive left breast cancer admitted with respiratory insufficiency. Attending Statement still on NRB c/o sob with HURLEY continue steroids. Josey Gandara Sep 13, 2016 10:32 Tiburcio Kirk MD Sep 13, 2016 23:47
--- NOTE | 2016-09-13 11:33 | RSPPFT ---
DATE OF PROCEDURE: 09/12/16 COMMENTS: VOLUMES DYNAMIC: FVC and FEV1 severely reduced. FLOWS: FEV1% and FEF 25-75 normal. IMPRESSION: Probable severe restrictive ventilatory defect with no airways obstruction. There is no improvement post-bronchodilator.
[2016-09-13] MEDS: SULFAMETHOXAZOLE-TRIMETHOPRIM DS 800-160 MG TAB PO SCH ×2 (11:46→21:53)
[2016-09-13] MEDS: ONDANSETRON HCL 4 MG/2 ML VIAL IVP PRN (16:55)
--- NOTE | 2016-09-13 21:37 | RADRPT ---
EXAM DATE/TIME: 08/26/2016 16:50 [place] COMPARISON: No previous studies available for comparison. INDICATIONS : Shortness of breath. IV CONTRAST: 99 cc Omnipaque 350 (iohexol) IV RADIATION DOSE: 11.38 CTDIvol (mGy) MEDICAL HISTORY : Carcinoma, breast. SURGICAL HISTORY : None. ENCOUNTER: Initial ACUITY: 1 day PAIN SCALE: 0/10 LOCATION: chest TECHNIQUE: Volumetric scanning of the chest was performed using a pulmonary embolism protocol MIP images were re constructed. Using automated exposure control and adjustment of the mA and/or kV according to patien t size, radiation dose was kept as low as reasonably achievable to obtain optimal diagnostic quality images. FINDINGS: No filling defects to suggest pulmonary embolic disease. There is pulmonary fibrosis but not in a pat tern that easily classifiable. Fibrosis is present in the upper and lower lobes with some questionabl e early honeycombing inferiorly. There is also fairly extensive groundglass opacity especially in upp er lobes with some lobular sparing. Minimal traction bronchiectasis. No pleural or pericardial effusi on. Mildly enlarged mediastinal lymph nodes. No acute findings in the upper abdomen. CONCLUSION: 1. Negative for pulmonary embolus. Pulmonary fibrosis as above, not easily classifiable. There is als o extensive groundglass opacity with lobular sparing. Differential diagnosis includes sequela of drug reaction or subacute hypersensitivity pneumonitis, atypical usual interstitial pneumonitis, or other causes of alveolitis. Checo Conner MD on August 26, 2016 at 19:25 Board Certified Radiologist. This report was verified electronically.
[2016-09-14] VITALS (9 sets, daily range): BP systolic 116–140; BP diastolic 60–71; PULSE 87–116; RESP 16–20; TEMP 97.3–98.1; O2SAT 91–98
[2016-09-14] MEDS: ONDANSETRON HCL 4 MG/2 ML VIAL IVP PRN ×2 (00:58→22:17)
[2016-09-14] MEDS: methylPREDNISolone SOD SUCC 125 MG/2 ML VIAL IV PUSH SCH ×3 (00:58→17:14)
[2016-09-14] MEDS: SODIUM CHLORIDE 0.9% FLUSH 10 ML FLUSH IV FLUSH PRN (00:59)
[2016-09-14] MEDS: HEPARIN SODIUM - SQ 10,000 UNITS/ML VIAL SQ SCH ×3 (05:30→22:23)
[2016-09-14] MEDS: INSULIN NovoLIN REGULAR SUPPLEMENTAL SCALE SQ SCH ×4 (07:00→22:21)
[2016-09-14] MEDS: TOLTERODINE TARTRATE 2 MG CAP LA PO SCH (09:00)
[2016-09-14] MEDS: RESP: ALBUTEROL 2.5 MG/IPRATROPIUM 0.5 MG NEB (SCH) NEB ×2 (09:08→19:18)
--- NOTE | 2016-09-14 09:50 | PD.ONC.PN ---
Subjective Subjective Remarks Afebrile overnight. Had some bleeding from her dry lips, improved after using some lip balm. remains on non-rebreather mask. Objective Data Date Time Temp Pulse Resp B/P Pulse Ox O2 Delivery O2 Flow Rate FiO2 09/14/16 09:12 91 Partial Rebreather 15.00 09/14/16 08:00 97.8 98 20 140/66 96 09/14/16 04:00 97.7 97 16 138/71 98 09/14/16 04:00 Partial Non-Rebreather 13.00 09/14/16 00:00 97.8 106 16 138/65 98 09/14/16 00:00 Partial Non-Rebreather 13.00 09/13/16 20:47 96 Partial Rebreather 13.00 09/13/16 20:18 105 09/13/16 20:00 97.9 110 18 127/60 96 09/13/16 20:00 Partial Non-Rebreather 13.00 09/13/16 16:02 98.6 112 17 127/75 95 09/13/16 12:02 98.0 112 17 133/61 93 Result Diagram: 09/12/16 1900 Administered Medications Medications (Trade) Dose Ordered Sig/Aurelia Route PRN Reason Start Time Stop Time Status Last Admin Dose Admin Guaifenesin (Mucinex Er) 600 mg BID PO 08/26/16 21:00 09/13/16 21:53 Sodium Chloride (NS Flush) 2 ml UNSCH PRN IV FLUSH FLUSH AFTER USING IV ACCESS 08/26/16 20:00 09/14/16 00:59 Sodium Chloride (NS Flush) 2 ml BID IV FLUSH 08/26/16 21:00 09/13/16 21:53 Ondansetron HCl (Zofran Inj) 4 mg Q6H PRN IVP NAUSEA OR VOMITING 08/26/16 20:00 09/14/16 00:58 Heparin Sodium (Porcine) (Heparin Inj) 5,000 units Q8H SQ 08/26/16 20:00 09/14/16 05:30 Acetaminophen (Tylenol) 650 mg Q6H PRN PO FEVER/PAIN SCALE 1 TO 2 08/26/16 20:00 08/30/16 01:45 Senna/Docusate Sodium (Letty-Colace) 1 tab BID PO 08/26/16 21:00 09/13/16 21:53 Lactulose (Lactulose Liq) 30 ml DAILY PRN PO SEVERE CONSITIPATION 08/26/16 20:00 09/01/16 09:06 Duloxetine HCl (Cymbalta Dr) 60 mg DAILY PO 08/27/16 09:00 09/13/16 08:25 Atorvastatin Calcium (Lipitor) 80 mg DAILY PO 08/27/16 09:00 09/13/16 08:25 Tolterodine Tartrate (Detrol La) 2 mg DAILY PO 08/27/16 09:00 09/13/16 08:25 Pantoprazole Sodium (Protonix) 20 mg DAILY PO 08/29/16 11:45 09/13/16 08:25 Insulin Human Regular (NovoLIN R SUPPLEMENTAL SCALE) 1 ACHS SQ 09/01/16 16:00 09/13/16 21:59 Polyethylene Glycol (Miralax) 17 gm DAILY PO 09/02/16 09:00 09/13/16 08:25 Methylprednisolone Sodium Succinate (SoluMEDROL INJ) 60 mg Q8H IV PUSH 09/13/16 16:00 09/14/16 00:58 Trimethoprim/ Sulfamethoxazole (Bactrim Ds 800-160 Mg) 1 tab BID PO 09/13/16 09:00 09/13/16 21:53 Objective Remarks GENERAL: Elderly female, sitting up in bed, NRB mask in place SKIN: Warm and dry. HEAD: Normocephalic. some dried blood on lip. EYES: No injection or drainage. NECK: Supple, trachea midline. CARDIOVASCULAR: Regular rate and rhythm RESPIRATORY: diminished breath sounds posterior lung acosta. coarse rhonchi GASTROINTESTINAL: Abdomen soft, non-tender, nondistended. EXTREMITIES: No cyanosis NEUROLOGICAL: awake and alert, normal speech Assessment/Plan Problem List: (1) Hypoxia Status: Acute Plan: 09/14: continue steroids. monitor improvement. hopeful that she will be able to be weaned to nc and be discharged home. --ECHO = no decrease LVEF --pulmonary toxicity either due to Herceptin or Taxol --dr. Hammond, pulmonology following --V/Q scan in the emergency room --> low probability for pulmonary embolism. --CT chest, 09/12: interstitial changes becoming more coarse with time. (2) Breast CA Status: Acute Plan: no further chemo. --started on weekly Herceptin and Taxol chemotherapy on July 15. Assessment 76y/o with triple positive left breast cancer admitted with respiratory insufficiency. Attending Statement still is SOB and HURLEY on steroid and NRB mask. Repeat CT findings noted. DR Hammond to follow Josey Gandara Sep 14, 2016 09:50 Tiburcio Kirk MD Sep 14, 2016 15:12
[2016-09-14] MEDS: PANTOPRAZOLE SOD 20 MG DELAYED RELEASE TAB PO SCH (10:22)
[2016-09-14] MEDS: guaiFENesin E.R. 600 MG TAB PO SCH ×2 (10:22→22:16)
[2016-09-14] MEDS: ATORVASTATIN 80 MG TAB PO SCH (10:23)
[2016-09-14] MEDS: SULFAMETHOXAZOLE-TRIMETHOPRIM DS 800-160 MG TAB PO SCH ×2 (10:23→22:16)
[2016-09-14] MEDS: DOCUSATE SODIUM 50 MG/SENNA 8.6 MG TAB PO SCH ×2 (10:23→22:17)
[2016-09-14] MEDS: DULoxetine HCl DR 60 MG CAP PO SCH (10:23)
[2016-09-14] MEDS: POLYETHYLENE GLYCOL 17 GM PKG PO SCH (10:24)
[2016-09-14] MEDS: SODIUM CHLORIDE 0.9% FLUSH 10 ML FLUSH IV FLUSH SCH ×2 (10:24→21:00)
--- NOTE | 2016-09-14 17:07 | HHI.PR ---
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 She was admitted to [facility] on August 26 under the hospitalist service after she was sent to the ER by her oncologist, Dr. Kirk, secondary to hypoxemia following chemotherapy. She was noted to have O2 saturation of 75% on room air and upon EMS arrival she was placed on 4 liters oxygen when her saturation improved to 92%. She underwent a VQ scan of the chest which showed low probability for pulmonary embolism and chest x-ray showed mild interstitial prominence suggesting vascular congestion or volume overload. The patient underwent CTA of the chest as well which showed no evidence of pulmonary embolism, however, it showed extensive ground-glass opacities and questionable pulmonary fibrosis per report. The patient reported progressive worsening of shortness of breath for the past one week prior to admission. She denies any chest pain, shortness of breath, cough, or any constitutional symptoms. In addition she denies any exposure to sick contacts. She has been receiving chemotherapy every Monday for the past 7 weeks and is being followed by Dr. Kirk, the patient's oncologist. The patient denies any use of oxygen at home and she is a nonsmoker. She has been requiring increased O2 and was subsequently transferred to ICU. Critical care medicine was consulted for critical care management. The patient is also being followed by Dr. Hammond from pulmonary service, Dr. Louie from cardiology. ABG was performed at 04:27 this morning which showed pH of 7.41, CO2 37, pAO2 59, bicarb 23, sats of 88% on 9 liter simple mask. Chest x-ray from this morning showed increase in bilateral interstitial opacities. The patient has been placed on a non-rebreather and she was given Lasix 40 mg IV push at 10:34 this morning. The patient denies any nausea, vomiting, abdominal pain. In addition she denies any orthopnea, PND or edema of lower extremities. 08/29 No acute events overnight. On High flow oxygen with 70% FIO2. Afebrile. 08/30 Patient remains on high flow oxygen with good sats. CXR this morning no significant changes. 08/31 No events overnight. On high flow NC 25L with 75%FIO2, Afebrile. 09/01: Remains on high flow nasal cannula 30 L 65%. Afebrile. Mentating fine. Denies shortness of breath currently. 09/02: Afebrile. FiO2 down to 50%. 25 L. We'll attempt to get out of bed to chair daily. Tolerating diet. Positive BM. 09/03: Down to 4 L nasal cannula. Appears much improved. Bit itchy yesterday tolerating well. Tolerating diet. Hospitalist Notes: 09/08: Patient seen in her bedroom, asked by Nurse And Charge nurse to evaluate the patient and probable discharge, no new records in ERM by any specialist asked for six minute walk for discharge, then seen by emergency room specialist not clear for discharge yet. 09/09: Seen in her bedroom and discussed with Nurse Mr. Alvarado that the patient had possible aspiration with the need for 100% Non rebreather mask, at this time continue with the mask with Oxygen saturation 92%. No nausea, vomit or diarrhea, seen in Intensive Care Unit. May transfer to the Medical Floor if okay with emergency room specialist. 09/10: Stable in her bedroom keep better oxygen saturation, at this time having a respiratory therapy, no complaint, not yet cleared for discharge by emergency room specialist. 09/11: Seen in her bedroom, no improving, continue with high oxygen demand, on Steroids. 09/12: Worsening condition today, she had to placed on Non rebreather mask, discussed with her and her about DNR status and DNI she states she is full code continue management for Respiratory insufficiency. 09/13: Seen in her bedroom and discussed with nurse, The patient has elected to continue full management, she has poor short term Prognosis, still on Non Rebreather mask 09/14: Stable continue Steroids, Non rebreather mask, no nausea, vomit or diarrhea. Objective Vital Signs Date Time Temp Pulse Resp B/P Pulse Ox O2 Delivery O2 Flow Rate FiO2 09/14/16 12:00 97.3 108 20 135/71 91 09/14/16 09:12 91 Partial Rebreather 15.00 09/14/16 09:00 87 09/14/16 08:00 97.8 98 20 140/66 96 09/14/16 04:00 97.7 97 16 138/71 98 09/14/16 04:00 Partial Non-Rebreather 13.00 09/14/16 00:00 97.8 106 16 138/65 98 09/14/16 00:00 Partial Non-Rebreather 13.00 09/13/16 20:47 96 Partial Rebreather 13.00 09/13/16 20:18 105 09/13/16 20:00 97.9 110 18 127/60 96 09/13/16 20:00 Partial Non-Rebreather 13.00 I/O 09/13/16 09/13/16 09/13/16 09/14/16 09/14/16 09/14/16 07:00 15:00 23:00 07:00 15:00 23:00 Intake Total 380 ml Balance 380 ml Intake Oral 380 ml # Voids 1 2 1 0 # Bowel Movements 0 0 Result Diagram: 09/12/16 1900 Imaging Last Impressions Chest X-Ray 09/12/16 0000 Signed Impressions: Service Date/Time: Monday, September 12, 2016 10:22 - CONCLUSION: Stable chest x-ray with peripheral and lower lung zone predominant interstitial opacities bilaterally. Romel Haas MD Chest CT 09/12/16 0000 Signed Impressions: Service Date/Time: Monday, September 12, 2016 16:11 - CONCLUSION: Interstitial changes are becoming more coarse over time. There is no pneumothorax, pericardial effusion, or adenopathy. Soy Harper MD FACR Lung Scan- Nuclear Medicine 08/26/16 0000 Signed Impressions: Service Date/Time: Friday, August 26, 2016 20:26 - CONCLUSION: 1. Low probability for pulmonary embolus. Checo Conner MD CT Angiography 08/26/16 0000 Signed Impressions: Service Date/Time: Friday, August 26, 2016 16:50 - CONCLUSION: 1. Negative for pulmonary embolus. Pulmonary fibrosis as above, not easily classifiable. There is also extensive groundglass opacity with lobular sparing. Differential diagnosis includes sequela of drug reaction or subacute hypersensitivity pneumonitis, atypical usual interstitial pneumonitis, or other causes of alveolitis. Checo Conner MD Procedures None Other Results Laboratory Tests Test 09/12/16 09/12/16 14:23 19:00 Blood Gas Puncture Site RT RADIAL Blood Gas Patient Temperature 98.6 Blood Gas HCO3 24 mmol/L Blood Gas Base Excess 0.5 mmol/L Blood Gas Oxygen Saturation 96 % Arterial Blood pH 7.44 Arterial Blood Partial 36 mmHg Pressure CO2 Arterial Blood Partial 116 mmHg Pressure O2 Arterial Blood Oxygen Content 20.3 Vol % Arterial Blood 0.7 % Carboxyhemoglobin Arterial Blood Methemoglobin 1.0 % Blood Gas Hemoglobin 14.9 G/DL Oxygen Delivery Device PRB Blood Gas Liter Flow 15 L/M White Blood Count 28.5 TH/MM3 Red Blood Count 4.16 MIL/MM3 Hemoglobin 11.6 GM/DL Hematocrit 34.9 % Mean Corpuscular Volume 83.8 FL Mean Corpuscular Hemoglobin 28.0 PG Mean Corpuscular Hemoglobin 33.4 % Concent Red Cell Distribution Width 16.5 % Platelet Count 194 TH/MM3 Mean Platelet Volume 10.0 FL Neutrophils (%) (Auto) 94.6 % Lymphocytes (%) (Auto) 3.0 % Monocytes (%) (Auto) 2.2 % Eosinophils (%) (Auto) 0.0 % Basophils (%) (Auto) 0.2 % Neutrophils # (Auto) 26.9 TH/MM3 Lymphocytes # (Auto) 0.9 TH/MM3 Monocytes # (Auto) 0.6 TH/MM3 Eosinophils # (Auto) 0.0 TH/MM3 Basophils # (Auto) 0.1 TH/MM3 CBC Comment AUTO DIFF Differential Total Cells 100 Counted Neutrophils % (Manual) 86 % Band Neutrophils % 7 % Lymphocytes % 6 % Neutrophils # (Manual) 26.8 TH/MM3 Myelocytes 1 % Differential Comment FINAL DIFF MANUAL Platelet Estimate NORMAL Platelet Morphology Comment NORMAL Red Cell Morphology Comment NORMAL Erythrocyte Sedimentation Rate 24 mm/hr B-Type Natriuretic Peptide 21 PG/ML Objective Remarks GENERAL: No acute distress. SKIN: Warm and dry. No rash HEAD: Normocephalic. NRM EYES: No scleral icterus. No injection or drainage. NECK: Supple, trachea midline. No JVD or lymphadenopathy. CARDIOVASCULAR: Regular rate and rhythm without murmurs, gallops, or rubs. RESPIRATORY: decreased breath sounds bilateral, coarse breath sounds. GASTROINTESTINAL: Abdomen soft, non-tender, nondistended. Hypoactive bowel sounds MUSCULOSKELETAL: No significant peripheral edema. BACK: Nontender without obvious deformity. No CVA tenderness. Medications and IVs Current Medications Medications (Trade) Dose Ordered Sig/Aurelia Route Start Time Stop Time Status Last Admin (Mucinex Er) 600 mg BID PO 08/26/16 21:00 09/14/16 10:22 (NS Flush) 2 ml UNSCH PRN IV FLUSH 08/26/16 20:00 09/14/16 00:59 (NS Flush) 2 ml BID IV FLUSH 08/26/16 21:00 09/14/16 10:24 (Zofran Inj) 4 mg Q6H PRN IVP 08/26/16 20:00 09/14/16 00:58 (Heparin Inj) 5,000 units Q8H SQ 08/26/16 20:00 09/14/16 12:00 (Tylenol) 650 mg Q6H PRN PO 08/26/16 20:00 08/30/16 01:45 ([place] 5-325 Mg) 1 tab Q4H PRN PO 08/26/16 20:00 (Morphine Inj) 2 mg Q3H PRN IV 08/26/16 20:00 (Letty-Colace) 1 tab BID PO 08/26/16 21:00 09/14/16 10:23 (Milk Of Magnesia Liq) 30 ml Q12H PRN PO 08/26/16 20:00 (Senokot) 17.2 mg Q12H PRN PO 08/26/16 20:00 (Dulcolax Supp) 10 mg DAILY PRN RECTAL 08/26/16 20:00 (Lactulose Liq) 30 ml DAILY PRN PO 08/26/16 20:00 09/01/16 09:06 (Cymbalta Dr) 60 mg DAILY PO 08/27/16 09:00 09/14/16 10:23 (Lipitor) 80 mg DAILY PO 08/27/16 09:00 09/14/16 10:23 (Detrol La) 2 mg DAILY PO 08/27/16 09:00 09/14/16 09:00 (Vasotec Inj) 1.25 mg Q6H PRN IV 08/28/16 10:30 (D50w (Vial) Inj) 50 ml UNSCH PRN IV 08/28/16 12:30 (Glucagon Inj) 1 mg UNSCH PRN OTHER 08/28/16 12:30 Miscellaneous Information Patient in critical care unit? Ass... Q361D .XX 08/28/16 19:30 (Protonix) 20 mg DAILY PO 08/29/16 11:45 09/14/16 10:22 (NovoLIN R SUPPLEMENTAL SCALE) 1 ACHS SQ 09/01/16 16:00 09/13/16 21:59 (Miralax) 17 gm DAILY PO 09/02/16 09:00 09/14/16 10:24 (SoluMEDROL INJ) 60 mg Q8H IV PUSH 09/13/16 16:00 09/14/16 10:23 (Bactrim Ds 800-160 Mg) 1 tab BID PO 09/13/16 09:00 09/14/16 10:23 A/P Assessment and Plan Acute hypoxemic respiratory failure- improving Extensive ground-glass opacities. Ddx: hypersensitivity pneumonitis vs chemotherapy induced pulmonary toxicity/ interstitial pneumonitis versus other causes of valvulitis Continue Oxygen by [place], asked for six minute walk for discharge on Oxygen Bronchodilator, Mucolytic and incentive spirometry, Bactrim. now on Prednisone as per learning solutions specialist. CT chest/not PE study 08/29 revealed extensive bilateral ground glass opacification Non rebreather mas. emergency room specialist following. 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 Normocytic anemia Leukocytosis Monitor CBC daily. Follow trends Patient is afebrile and symptom improvement. leukocytosis likely due to steroids Hyperlipidemia. Stage I diastolic dysfunction currently on Lipitor 80 mg by mouth at bedtime for dyslipidemia 2-D echo revealed EF 55%. Stage I diastolic dysfunction. Mild MR. Depression Continue Cymbalta 60 mg by mouth daily for depression Continue [place] for pain management good family support Urinary Incontinence Continue Detrol LA 2 mg by mouth daily Prophylaxis - GI - Protonix - DVT - SCD/heparin subcutaneous Discussed with patient and nurse Miss Ruby, all questions answered to the best of my abilities. Discharge Planning Once cleared for Discharge by emergency room specialist. Himanshu Jimenez MD Sep 14, 2016 17:07
[2016-09-15] VITALS (10 sets, daily range): BP systolic 122–156; BP diastolic 65–86; PULSE 92–116; RESP 19–22; TEMP 97.4–98; O2SAT 84–98
[2016-09-15] MEDS: SODIUM CHLORIDE 0.9% FLUSH 10 ML FLUSH IV FLUSH PRN (01:00)
[2016-09-15] MEDS: methylPREDNISolone SOD SUCC 125 MG/2 ML VIAL IV PUSH SCH ×3 (01:00→17:16)
[2016-09-15] MEDS: HEPARIN SODIUM - SQ 10,000 UNITS/ML VIAL SQ SCH ×3 (05:17→21:56)
[2016-09-15] MEDS: INSULIN NovoLIN REGULAR SUPPLEMENTAL SCALE SQ SCH ×4 (06:35→21:00)
[2016-09-15] MEDS: RESP: ALBUTEROL 2.5 MG/IPRATROPIUM 0.5 MG NEB (SCH) NEB ×2 (07:52→19:23)
[2016-09-15] MEDS: DULoxetine HCl DR 60 MG CAP PO SCH (09:00)
[2016-09-15] MEDS: ATORVASTATIN 80 MG TAB PO SCH (09:00)
[2016-09-15] MEDS: guaiFENesin E.R. 600 MG TAB PO SCH ×2 (10:02→21:57)
[2016-09-15] MEDS: TOLTERODINE TARTRATE 2 MG CAP LA PO SCH (10:02)
[2016-09-15] MEDS: SULFAMETHOXAZOLE-TRIMETHOPRIM DS 800-160 MG TAB PO SCH ×2 (10:03→21:57)
[2016-09-15] MEDS: SODIUM CHLORIDE 0.9% FLUSH 10 ML FLUSH IV FLUSH SCH ×2 (10:03→21:57)
[2016-09-15] MEDS: PANTOPRAZOLE SOD 20 MG DELAYED RELEASE TAB PO SCH (10:03)
[2016-09-15] MEDS: POLYETHYLENE GLYCOL 17 GM PKG PO SCH (10:03)
[2016-09-15] MEDS: DOCUSATE SODIUM 50 MG/SENNA 8.6 MG TAB PO SCH ×2 (10:03→21:56)
--- NOTE | 2016-09-15 10:03 | PD.ONC.PN ---
Subjective Subjective Remarks Afebrile overnight. patient resting in bed. Now tolerating nasal cannula. Ate some breakfast. Objective Data Date Time Temp Pulse Resp B/P Pulse Ox O2 Delivery O2 Flow Rate FiO2 09/15/16 08:03 98.0 105 19 156/73 91 09/15/16 07:50 98 Partial Rebreather 10.00 09/15/16 07:43 92 09/15/16 04:28 97.4 99 20 148/86 96 09/15/16 04:28 Partial Non-Rebreather 13.00 09/15/16 00:00 Partial Non-Rebreather 13.00 09/15/16 00:00 97.7 102 20 122/73 96 09/14/16 20:00 113 09/14/16 20:00 Partial Non-Rebreather 13.00 09/14/16 20:00 98.1 116 20 116/64 98 09/14/16 19:18 95 Partial Rebreather 15.00 09/14/16 16:00 Partial Non-Rebreather 13.00 09/14/16 16:00 98.1 114 20 125/60 92 09/14/16 12:00 Partial Non-Rebreather 13.00 09/14/16 12:00 97.3 108 20 135/71 91 09/15/16 09/15/16 09/15/16 06:59 14:59 22:59 Intake Total 880 ml Balance 880 ml Result Diagram: 09/12/16 1900 Administered Medications Medications (Trade) Dose Ordered Sig/Aurelia Route PRN Reason Start Time Stop Time Status Last Admin Dose Admin Guaifenesin (Mucinex Er) 600 mg BID PO 08/26/16 21:00 09/14/16 22:16 Sodium Chloride (NS Flush) 2 ml UNSCH PRN IV FLUSH FLUSH AFTER USING IV ACCESS 08/26/16 20:00 09/15/16 01:00 Sodium Chloride (NS Flush) 2 ml BID IV FLUSH 08/26/16 21:00 09/14/16 21:00 Ondansetron HCl (Zofran Inj) 4 mg Q6H PRN IVP NAUSEA OR VOMITING 08/26/16 20:00 09/14/16 22:17 Heparin Sodium (Porcine) (Heparin Inj) 5,000 units Q8H SQ 08/26/16 20:00 09/15/16 05:17 Acetaminophen (Tylenol) 650 mg Q6H PRN PO FEVER/PAIN SCALE 1 TO 2 08/26/16 20:00 08/30/16 01:45 Senna/Docusate Sodium (Letty-Colace) 1 tab BID PO 08/26/16 21:00 09/14/16 22:17 Lactulose (Lactulose Liq) 30 ml DAILY PRN PO SEVERE CONSITIPATION 08/26/16 20:00 09/01/16 09:06 Duloxetine HCl (Cymbalta Dr) 60 mg DAILY PO 08/27/16 09:00 09/14/16 10:23 Atorvastatin Calcium (Lipitor) 80 mg DAILY PO 08/27/16 09:00 09/14/16 10:23 Tolterodine Tartrate (Detrol La) 2 mg DAILY PO 08/27/16 09:00 09/14/16 09:00 Pantoprazole Sodium (Protonix) 20 mg DAILY PO 08/29/16 11:45 09/14/16 10:22 Insulin Human Regular (NovoLIN R SUPPLEMENTAL SCALE) 1 ACHS SQ 09/01/16 16:00 09/14/16 22:21 Polyethylene Glycol (Miralax) 17 gm DAILY PO 09/02/16 09:00 09/14/16 10:24 Methylprednisolone Sodium Succinate (SoluMEDROL INJ) 60 mg Q8H IV PUSH 09/13/16 16:00 09/15/16 01:00 Trimethoprim/ Sulfamethoxazole (Bactrim Ds 800-160 Mg) 1 tab BID PO 09/13/16 09:00 09/14/16 22:16 Objective Remarks GENERAL: Elderly female, upright in bed on 6L O2 via NC SKIN: Warm and dry. HEAD: Normocephalic. some dried blood on lip. EYES: No injection or drainage. NECK: Supple, trachea midline. CARDIOVASCULAR: Regular rate and rhythm RESPIRATORY: diminished at bases. anterior acosta with occasional rhonchi GASTROINTESTINAL: Abdomen soft, non-tender, nondistended. EXTREMITIES: No cyanosis NEUROLOGICAL: awake and alert, normal speech. moving all extremities. Assessment/Plan Problem List: (1) Hypoxia Status: Acute Plan: 09/15: tolerating O2 via NC. hopeful she will continue to maintain saturations and eventually be d/c'd home. continue steroids. --ECHO = no decrease LVEF --pulmonary toxicity either due to Herceptin or Taxol --dr. Hammond, pulmonology following --V/Q scan in the emergency room --> low probability for pulmonary embolism. --CT chest, 09/12: interstitial changes becoming more coarse with time. (2) Breast CA Status: Acute Plan: no further chemo. --started on weekly Herceptin and Taxol chemotherapy on July 15. Assessment 76y/o with triple positive left breast cancer admitted with respiratory insufficiency. Attending Statement no new c/o sob continue steroids. Josey Gandara Sep 15, 2016 10:03 Tiburcio Kirk MD Sep 16, 2016 14:58
[2016-09-15] MEDS: ONDANSETRON HCL 4 MG/2 ML VIAL IVP PRN ×2 (11:49→17:30)
--- NOTE | 2016-09-15 13:26 | HHI.PR ---
Objective Vitals Vital Signs Date Time Temp Pulse Resp B/P Pulse Ox O2 Delivery O2 Flow Rate FiO2 09/15/16 12:18 2.00 09/15/16 12:13 97.6 113 19 135/70 87 09/15/16 10:28 Nasal Cannula 2.00 09/15/16 08:03 98.0 105 19 156/73 91 09/15/16 07:50 98 Partial Rebreather 10.00 09/15/16 07:43 92 09/15/16 04:28 97.4 99 20 148/86 96 09/15/16 04:28 Partial Non-Rebreather 13.00 09/15/16 00:00 Partial Non-Rebreather 13.00 09/15/16 00:00 97.7 102 20 122/73 96 09/14/16 20:00 113 09/14/16 20:00 Partial Non-Rebreather 13.00 09/14/16 20:00 98.1 116 20 116/64 98 09/14/16 19:18 95 Partial Rebreather 15.00 09/14/16 16:00 Partial Non-Rebreather 13.00 09/14/16 16:00 98.1 114 20 125/60 92 I/O 09/14/16 09/14/16 09/14/16 09/15/16 09/15/16 09/15/16 07:00 15:00 23:00 07:00 15:00 23:00 Intake Total 360 ml 880 ml Output Total 300 ml Balance 60 ml 880 ml Intake Oral 360 ml 880 ml Output Urine Total 300 ml # Voids 0 1 # Bowel Movements 0 0 Result Diagram: 09/12/16 1900 Date of Removal: Sep 04, 2016 Donald Sanz MD Sep 15, 2016 13:26 regular rhtyhm abdomen soft, nontender extremities no edema neuro exam- unremarkable Date of Removal: Sep 04, 2016 A/P Problem List: (1) Hypoxia ICD Code: R09.02 Status: Acute (2) Bandemia ICD Code: D72.825 Status: Acute (3) Dehydration ICD Code: E86.0 Status: Resolved (4) Breast CA ICD Code: C50.919 Status: Acute (5) HTN (hypertension) ICD Code: I10 Status: Acute (6) Acute respiratory failure ICD Code: J96.00 Status: Resolved Assessment and Plan 76 years old female admitted for Acute hypoxemic respiratory failure- improving Extensive ground-glass opacities. Ddx: hypersensitivity pneumonitis vs chemotherapy induced pulmonary toxicity/ interstitial pneumonitis versus other causes of valvulitis Currently on high flow nasal cannula 25 L/50% to maintain saturations greater than or equal to 92% Duo nebs 3 times a day and as needed dyspnea Solu-Medrol 60 mg IV every [address] chest/not PE study 08/29 revealed extensive bilateral groundglass opacification Followed by Dr. Schultz/pulmonology On IV Levaquin will do walk test prior to DC if qualifies for home 02 Triple positive left breast cancer status post Herceptin scan and Taxol 07/15 weekly chemotherapy Normocytic anemia Leukocytosis Monitor CBC daily. Follow trends ID: Currently on Levaquin- since 08/27 Leukocytosis- on IV steroids Dyslipidemia Stage I diastolic dysfunction currently on Lipitor 80 mg by mouth at bedtime for dyslipidemia 2-D echo revealed EF 55%. Stage I diastolic dysfunction. Mild MR. Depression Continue Cymbalta 60 mg by mouth daily for depression Continue [place] for pain management good family support CV: Dyslipidemia Stage I diastolic dysfunction currently on Lipitor 80 mg by mouth at bedtime for dyslipidemia 2-D echo revealed EF 55%. Stage I diastolic dysfunction. Mild MR. GI: Advance diet as tolerated/regular Protonix for GI prophylaxis Letty-Colace twice a day bowel regimen with MiraLAX daily : Incontinence [place] catheter for accurate I's nose any critically ill patient- DC folye today - check voiding 09/04 Continue Detrol LA 2 mg by mouth daily Endo: Sliding-scale insulin with Accu-Cheks to maintain euglycemia/before meals and at bedtime/low regimen Renal: Monitor urine output daily Accurate I's and O's Hyper-magnesium Replace electrolytes as clinically indicated Msk: PT/OT evaluate and treat Access - Utilized peripheral IVs. Has right Port-A-Cath if needed Prophylaxis - GI - Protonix - DVT - SCD/heparin subcutaneous Donald Sanz MD Sep 15, 2016 13:26
--- NOTE | 2016-09-15 13:37 | HHI.PR ---
Subjective Remarks patient is up on the chair appears comfortable but easily gets short of breath with movement or transfers cough- thick serosanquinous sputum Objective Vitals Vital Signs Date Time Temp Pulse Resp B/P Pulse Ox O2 Delivery O2 Flow Rate FiO2 09/15/16 12:18 2.00 09/15/16 12:13 97.6 113 19 135/70 87 09/15/16 10:28 Nasal Cannula 2.00 09/15/16 08:03 98.0 105 19 156/73 91 09/15/16 07:50 98 Partial Rebreather 10.00 09/15/16 07:43 92 09/15/16 04:28 97.4 99 20 148/86 96 09/15/16 04:28 Partial Non-Rebreather 13.00 09/15/16 00:00 Partial Non-Rebreather 13.00 09/15/16 00:00 97.7 102 20 122/73 96 09/14/16 20:00 113 09/14/16 20:00 Partial Non-Rebreather 13.00 09/14/16 20:00 98.1 116 20 116/64 98 09/14/16 19:18 95 Partial Rebreather 15.00 09/14/16 16:00 Partial Non-Rebreather 13.00 09/14/16 16:00 98.1 114 20 125/60 92 I/O 09/14/16 09/14/16 09/14/16 09/15/16 09/15/16 09/15/16 07:00 15:00 23:00 07:00 15:00 23:00 Intake Total 360 ml 880 ml Output Total 300 ml Balance 60 ml 880 ml Intake Oral 360 ml 880 ml Output Urine Total 300 ml # Voids 0 1 # Bowel Movements 0 0 Result Diagram: 09/12/16 1900 Imaging Last Impressions Chest X-Ray 09/12/16 0000 Signed Impressions: Service Date/Time: Monday, September 12, 2016 10:22 - CONCLUSION: Stable chest x-ray with peripheral and lower lung zone predominant interstitial opacities bilaterally. Romel Haas MD Chest CT 09/12/16 0000 Signed Impressions: Service Date/Time: Monday, September 12, 2016 16:11 - CONCLUSION: Interstitial changes are becoming more coarse over time. There is no pneumothorax, pericardial effusion, or adenopathy. Soy Harper MD FACR Lung Scan-VQ Nuclear Medicine 08/26/16 0000 Signed Impressions: Service Date/Time: Friday, August 26, 2016 20:26 - CONCLUSION: 1. Low probability for pulmonary embolus. Checo Conner MD CT Angiography 08/26/16 0000 Signed Impressions: Service Date/Time: Friday, August 26, 2016 16:50 - CONCLUSION: 1. Negative for pulmonary embolus. Pulmonary fibrosis as above, not easily classifiable. There is also extensive groundglass opacity with lobular sparing. Differential diagnosis includes sequela of drug reaction or subacute hypersensitivity pneumonitis, atypical usual interstitial pneumonitis, or other causes of alveolitis. Checo Conner MD Objective Remarks awake and alert, oriented x 3 on 2LNC, easily desaturates without 02 anicteric lungs fine rales on right base regular rhythm abdomen soft, nontender extremities no edema neuro exam- unremarkable Date of Removal: Sep 04, 2016 A/P Problem List: (1) Hypoxia ICD Code: R09.02 Status: Acute (2) Bandemia ICD Code: D72.825 Status: Acute (3) Dehydration ICD Code: E86.0 Status: Resolved (4) Breast CA ICD Code: C50.919 Status: Acute (5) HTN (hypertension) ICD Code: I10 Status: Acute (6) Acute respiratory failure ICD Code: J96.00 Status: Resolved Assessment and Plan 76 years old female admitted for Acute hypoxemic respiratory failure- improving Extensive ground-glass opacities. Ddx: hypersensitivity pneumonitis vs chemotherapy induced pulmonary toxicity/ interstitial pneumonitis versus other causes of valvulitis Currently on 2-3 Lnasal cannula to maintain saturations greater than or equal to 92% Duo nebs 3 times a day and as needed dyspnea Solu-Medrol 60 mg IV every [address] chest/not PE study 08/29 revealed extensive bilateral ground glass opacification Followed by pulmonology- on Bactrim bid will do walk test prior to DC if qualifies for home - most likely will qualify Triple positive left breast cancer status post Herceptin scan and Taxol 07/15 weekly chemotherapy Normocytic anemia Leukocytosis Monitor CBC daily. Follow trends ID: Bactrim bid - - 09/13 per Pulmonary Leukocytosis- on IV steroids Dyslipidemia Stage I diastolic dysfunction currently on Lipitor 80 mg by mouth at bedtime for dyslipidemia 2-D echo revealed EF 55%. Stage I diastolic dysfunction. Mild MR. Depression Continue Cymbalta 60 mg by mouth daily for depression Continue [place] for pain management good family support CV: Dyslipidemia Stage I diastolic dysfunction currently on Lipitor 80 mg by mouth at bedtime for dyslipidemia 2-D echo revealed EF 55%. Stage I diastolic dysfunction. Mild MR. GI: Advance diet as tolerated/regular Protonix for GI prophylaxis Letty-Colace twice a day bowel regimen with MiraLAX daily : Incontinence [place] catheter- gomez removed Continue Detrol LA 2 mg by mouth daily Endo: Sliding-scale insulin with Accu-Cheks to maintain euglycemia/before meals and at bedtime/low regimen Renal: Monitor urine output daily Accurate I's and O's Hyper-magnesium Replace electrolytes as clinically indicated Msk: PT/OT evaluate and treat Access - Utilized peripheral IVs. Has right Port-A-Cath if needed Prophylaxis - GI - Protonix - DVT - SCD/heparin subcutaneous Donald Sanz MD Sep 15, 2016 13:37
[2016-09-15] MEDS: RESP: ALBUTEROL 2.5 MG/IPRATROPIUM 0.5 MG NEB (PRN) NEB (15:49)
[2016-09-16] VITALS (11 sets, daily range): BP systolic 111–136; BP diastolic 67–74; PULSE 97–124; RESP 20–22; TEMP 97.5–97.9; O2SAT 80–95
[2016-09-16] MEDS: methylPREDNISolone SOD SUCC 125 MG/2 ML VIAL IV PUSH SCH ×3 (02:45→21:58)
[2016-09-16] MEDS: HEPARIN SODIUM - SQ 10,000 UNITS/ML VIAL SQ SCH ×2 (02:46→12:57)
[2016-09-16] MEDS: INSULIN NovoLIN REGULAR SUPPLEMENTAL SCALE SQ SCH ×4 (06:08→21:57)
[2016-09-16] MEDS: RESP: ALBUTEROL 2.5 MG/IPRATROPIUM 0.5 MG NEB (SCH) NEB ×2 (08:49→21:37)
[2016-09-16] MEDS: SODIUM CHLORIDE 0.9% FLUSH 10 ML FLUSH IV FLUSH SCH ×2 (09:00→21:59)
[2016-09-16] MEDS: POLYETHYLENE GLYCOL 17 GM PKG PO SCH (09:04)
[2016-09-16] MEDS: SULFAMETHOXAZOLE-TRIMETHOPRIM DS 800-160 MG TAB PO SCH ×2 (09:04→21:58)
[2016-09-16] MEDS: DOCUSATE SODIUM 50 MG/SENNA 8.6 MG TAB PO SCH ×2 (09:05→21:58)
[2016-09-16] MEDS: PANTOPRAZOLE SOD 20 MG DELAYED RELEASE TAB PO SCH (09:05)
[2016-09-16] MEDS: guaiFENesin E.R. 600 MG TAB PO SCH ×2 (09:05→21:58)
[2016-09-16] MEDS: ATORVASTATIN 80 MG TAB PO SCH (09:05)
[2016-09-16] MEDS: DULoxetine HCl DR 60 MG CAP PO SCH (09:05)
[2016-09-16 09:10] LABS: BLOOD GAS CARBOXYHEMOGLOBIN 0.9 % (0-4); BLOOD GAS HCO3 23 mmol/L (22-26); BLOOD GAS METHEMOGLOBIN 1.2 % (0-2); BLOOD GAS O2 HGB SATURATION 81 % (90-100); BLOOD GAS OXYGEN CONTENT 12.6 Vol % (12.0-20.0); BLOOD GAS PCO2 33 mmHg (38-42); BLOOD GAS PO2 49 mmHg (61-120); TEMP CORR TO 98.6
[2016-09-16 09:12] LABS: CRITICAL VALUE YES; DRAW SITE RT RADIAL; LITER FLOW 4 L/M; NUMBER OF ARTERIAL PUNCTURES 1; OXYGEN DEVICE NASAL CANNULA; STAT NO; ULNAR PULSE PRESENT
--- NOTE | 2016-09-16 10:05 | PD.ONC.PN ---
Subjective Subjective Remarks Afebrile overnight. Patient still tolerating nasal cannula. Son at bedside. Objective Data Date Time Temp Pulse Resp B/P Pulse Ox O2 Delivery O2 Flow Rate FiO2 09/16/16 09:01 90 Nasal Cannula 4.00 09/16/16 08:47 6.00 09/16/16 08:14 88 Nasal Cannula 6.00 09/16/16 04:00 97.6 97 21 136/67 90 09/16/16 00:00 97.9 98 21 135/70 95 09/15/16 20:30 Nasal Cannula 6.00 Humidified 09/15/16 20:18 114 09/15/16 20:00 97.5 111 20 143/76 90 09/15/16 16:34 Nasal Cannula 6.00 50 09/15/16 16:32 6.00 09/15/16 16:04 93 Nasal Cannula 6.00 09/15/16 16:03 97.7 116 22 148/65 84 09/15/16 12:18 2.00 09/15/16 12:13 97.6 113 19 135/70 87 09/15/16 10:28 Nasal Cannula 2.00 Result Diagram: 09/12/16 1900 Laboratory Results Laboratory Tests Test 09/16/16 09:00 Blood Gas Puncture Site RT RADIAL Blood Gas Patient Temperature 98.6 Blood Gas HCO3 23 mmol/L Blood Gas Base Excess -1.0 mmol/L Blood Gas Oxygen Saturation 81 % Arterial Blood pH 7.45 Arterial Blood Partial 33 mmHg Pressure CO2 Arterial Blood Partial 49 mmHg Pressure O2 Arterial Blood Oxygen Content 12.6 Vol % Arterial Blood 0.9 % Carboxyhemoglobin Arterial Blood Methemoglobin 1.2 % Blood Gas Hemoglobin 11.0 G/DL Oxygen Delivery Device NASAL CANNULA Blood Gas Liter Flow 4 L/M Administered Medications Medications (Trade) Dose Ordered Sig/Aurelia Route PRN Reason Start Time Stop Time Status Last Admin Dose Admin Guaifenesin (Mucinex Er) 600 mg BID PO 08/26/16 21:00 09/16/16 09:05 Sodium Chloride (NS Flush) 2 ml UNSCH PRN IV FLUSH FLUSH AFTER USING IV ACCESS 08/26/16 20:00 09/15/16 01:00 Sodium Chloride (NS Flush) 2 ml BID IV FLUSH 08/26/16 21:00 09/15/16 21:57 Ondansetron HCl (Zofran Inj) 4 mg Q6H PRN IVP NAUSEA OR VOMITING 08/26/16 20:00 09/15/16 17:30 Heparin Sodium (Porcine) (Heparin Inj) 5,000 units Q8H SQ 08/26/16 20:00 09/16/16 02:46 Acetaminophen (Tylenol) 650 mg Q6H PRN PO FEVER/PAIN SCALE 1 TO 2 08/26/16 20:00 08/30/16 01:45 Senna/Docusate Sodium (Letty-Colace) 1 tab BID PO 08/26/16 21:00 09/16/16 09:05 Lactulose (Lactulose Liq) 30 ml DAILY PRN PO SEVERE CONSITIPATION 08/26/16 20:00 09/01/16 09:06 Duloxetine HCl (Cymbalta Dr) 60 mg DAILY PO 08/27/16 09:00 09/16/16 09:05 Atorvastatin Calcium (Lipitor) 80 mg DAILY PO 08/27/16 09:00 09/16/16 09:05 Tolterodine Tartrate (Detrol La) 2 mg DAILY PO 08/27/16 09:00 09/15/16 10:02 Pantoprazole Sodium (Protonix) 20 mg DAILY PO 08/29/16 11:45 09/16/16 09:05 Insulin Human Regular (NovoLIN R SUPPLEMENTAL SCALE) 1 ACHS SQ 09/01/16 16:00 09/14/16 22:21 Polyethylene Glycol (Miralax) 17 gm DAILY PO 09/02/16 09:00 09/16/16 09:04 Methylprednisolone Sodium Succinate (SoluMEDROL INJ) 60 mg Q8H IV PUSH 09/13/16 16:00 09/16/16 09:04 Trimethoprim/ Sulfamethoxazole (Bactrim Ds 800-160 Mg) 1 tab BID PO 09/13/16 09:00 09/16/16 09:04 Objective Remarks GENERAL: Elderly female, sitting up in bed in [facility]. SKIN: Warm and dry. HEAD: Normocephalic. EYES: No injection or drainage. NECK: Supple, trachea midline. CARDIOVASCULAR: Regular rate and rhythm RESPIRATORY: diminished at bases. scattered rhonchi, anterior acosta. GASTROINTESTINAL: Abdomen soft, non-tender, nondistended. EXTREMITIES: No cyanosis NEUROLOGICAL: awake and alert, normal speech. moving all extremities. Assessment/Plan Problem List: (1) Hypoxia Status: Acute Plan: 09/16: continuing to tolerate O2 via NC. monitor saturations. continue steroids. --ECHO = no decrease LVEF --pulmonary toxicity either due to Herceptin or Taxol --dr. Hammond, pulmonology following --V/Q scan in the emergency room --> low probability for pulmonary embolism. --CT chest, 09/12: interstitial changes becoming more coarse with time. (2) Breast CA Status: Acute Plan: no further chemo. --started on weekly Herceptin and Taxol chemotherapy on July 15. Assessment 76y/o with triple positive left breast cancer admitted with respiratory insufficiency. Attending Statement SOB with HURLEY persists Not on NRB mask. On NC 4 liters continue steroids d/w pt and family. Josey Gandara Sep 16, 2016 10:05 Tiburcio Kirk MD Sep 16, 2016 15:03
--- NOTE | 2016-09-16 11:12 | HHI.PR ---
Subjective Remarks no pain complains minimal sputum Objective Vitals Vital Signs Date Time Temp Pulse Resp B/P Pulse Ox O2 Delivery O2 Flow Rate FiO2 09/16/16 09:01 90 Nasal Cannula 4.00 09/16/16 08:47 6.00 09/16/16 08:14 88 Nasal Cannula 6.00 09/16/16 08:00 97.6 110 20 122/74 88 09/16/16 04:00 97.6 97 21 136/67 90 09/16/16 00:00 97.9 98 21 135/70 95 09/15/16 20:30 Nasal Cannula 6.00 Humidified 09/15/16 20:18 114 09/15/16 20:00 97.5 111 20 143/76 90 09/15/16 16:34 Nasal Cannula 6.00 50 09/15/16 16:32 6.00 09/15/16 16:04 93 Nasal Cannula 6.00 09/15/16 16:03 97.7 116 22 148/65 84 09/15/16 12:18 2.00 09/15/16 12:13 97.6 113 19 135/70 87 I/O 09/15/16 09/15/16 09/15/16 09/16/16 09/16/16 09/16/16 07:00 15:00 23:00 07:00 15:00 23:00 Intake Total 880 ml 480 ml 0 ml 0 ml Output Total 1100 ml 350 ml Balance 880 ml -620 ml -350 ml 0 ml Intake Oral 880 ml 480 ml 0 ml 0 ml IV Total 0 ml Output Urine Total 1100 ml 350 ml # Voids 1 0 # Bowel Movements 0 0 Result Diagram: 09/12/16 1900 Imaging Last Impressions Chest X-Ray 09/12/16 0000 Signed Impressions: Service Date/Time: Monday, September 12, 2016 10:22 - CONCLUSION: Stable chest x-ray with peripheral and lower lung zone predominant interstitial opacities bilaterally. Romel Haas MD Chest CT 09/12/16 0000 Signed Impressions: Service Date/Time: Monday, September 12, 2016 16:11 - CONCLUSION: Interstitial changes are becoming more coarse over time. There is no pneumothorax, pericardial effusion, or adenopathy. Soy Harper MD FACR Lung Scan-V Nuclear Medicine 08/26/16 0000 Signed Impressions: Service Date/Time: Friday, August 26, 2016 20:26 - CONCLUSION: 1. Low probability for pulmonary embolus. Checo Conner MD CT Angiography 08/26/16 0000 Signed Impressions: Service Date/Time: Friday, August 26, 2016 16:50 - CONCLUSION: 1. Negative for pulmonary embolus. Pulmonary fibrosis as above, not easily classifiable. There is also extensive groundglass opacity with lobular sparing. Differential diagnosis includes sequela of drug reaction or subacute hypersensitivity pneumonitis, atypical usual interstitial pneumonitis, or other causes of alveolitis. Checo Conner MD Objective Remarks awake and alert, oriented x 3 on 2LNC, easily desaturates without 02 anicteric lungs- no rales or wheezes regular rhythm abdomen soft, nontender extremities no edema neuro exam- unremarkable Date of Removal: Sep 04, 2016 A/P Problem List: (1) Hypoxia ICD Code: R09.02 Status: Acute (2) Bandemia ICD Code: D72.825 Status: Acute (3) Dehydration ICD Code: E86.0 Status: Resolved (4) Breast CA ICD Code: C50.919 Status: Acute (5) HTN (hypertension) ICD Code: I10 Status: Acute (6) Acute respiratory failure ICD Code: J96.00 Status: Resolved Assessment and Plan 76 years old female admitted for Acute hypoxemic respiratory failure- improving Extensive ground-glass opacities. Ddx: hypersensitivity pneumonitis vs chemotherapy induced pulmonary toxicity/ interstitial pneumonitis versus other causes of valvulitis Currently on 2-3 Lnasal cannula to maintain saturations greater than or equal to 92% Duo nebs 3 times a day and as needed dyspnea Solu-Medrol 60 mg IV every 8 hours- decrease to q 12 CT chest/not PE study 08/29 revealed extensive bilateral ground glass opacification Followed by pulmonology- on Bactrim bid will do walk test prior to DC if qualifies for home - most likely will qualify Triple positive left breast cancer status post Herceptin scan and Taxol 07/15 weekly chemotherapy Normocytic anemia Leukocytosis Monitor CBC daily. Follow trends ID: Currently on Levaquin- since 08/27 Leukocytosis- on IV steroids Dyslipidemia Stage I diastolic dysfunction currently on Lipitor 80 mg by mouth at bedtime for dyslipidemia 2-D echo revealed EF 55%. Stage I diastolic dysfunction. Mild MR. Depression Continue Cymbalta 60 mg by mouth daily for depression Continue [place] for pain management good family support CV: Dyslipidemia Stage I diastolic dysfunction currently on Lipitor 80 mg by mouth at bedtime for dyslipidemia 2-D echo revealed EF 55%. Stage I diastolic dysfunction. Mild MR. GI: Advance diet as tolerated/regular Protonix for GI prophylaxis Letty-Colace twice a day bowel regimen with MiraLAX daily : Incontinence Gomez catheter- gomez removed- voidign Continue Detrol LA 2 mg by mouth daily Endo: Sliding-scale insulin with Accu-Cheks to maintain euglycemia/before meals and at bedtime/low regimen Renal: Monitor urine output daily Accurate I's and O's Hyper-magnesium Replace electrolytes as clinically indicated Msk: PT/OT evaluate and treat Access - Utilized peripheral IVs. Has right Port-A-Cath if needed Prophylaxis - GI - Protonix - DVT - SCD/heparin subcutaneous PT- educate- walker with Donald Palafox MD Sep 16, 2016 11:12
[2016-09-16] MEDS: TOLTERODINE TARTRATE 2 MG CAP LA PO SCH (12:58)
[2016-09-16] MEDS: RESP: ALBUTEROL 2.5 MG/IPRATROPIUM 0.5 MG NEB (PRN) NEB (14:11)
--- NOTE | 2016-09-16 19:36 | HHI.PR ---
Subjective Remarks 76 YOWF with Breast ca, Bilat extensive ground glass infilt Looks comfortable Denies sob Feels better Up in chair Family at . Weaned to NH Objective Vital Signs Vital Signs Date Time Temp Pulse Resp B/P Pulse Ox O2 Delivery O2 Flow Rate FiO2 09/16/16 16:00 97.8 118 20 111/67 88 09/16/16 12:00 97.8 109 20 125/68 80 09/16/16 09:01 90 Nasal Cannula 4.00 09/16/16 09:00 Nasal Cannula 6.00 Humidified 09/16/16 08:47 6.00 09/16/16 08:14 88 Nasal Cannula 6.00 09/16/16 08:00 97.6 110 20 122/74 88 09/16/16 04:00 97.6 97 21 136/67 90 09/16/16 00:00 97.9 98 21 135/70 95 09/15/16 20:30 Nasal Cannula 6.00 Humidified 09/15/16 20:18 114 09/15/16 20:00 97.5 111 20 143/76 90 I/O 09/15/16 09/15/16 09/15/16 09/16/16 09/16/16 09/16/16 07:00 15:00 23:00 07:00 15:00 23:00 Intake Total 880 ml 480 ml 0 ml 0 ml 1200 ml Output Total 1100 ml 350 ml 0 ml Balance 880 ml -620 ml -350 ml 0 ml 1200 ml Intake Oral 880 ml 480 ml 0 ml 0 ml 1200 ml IV Total 0 ml Output Urine Total 1100 ml 350 ml 0 ml # Voids 1 0 # Bowel Movements 0 0 0 Result Diagram: 09/12/16 1900 Objective Remarks GENERAL: MBMN WF mild sob SKIN: Warm and dry. HEAD: Normocephalic. EYES: No scleral icterus. No injection or drainage. NECK: Supple, trachea midline. No JVD or lymphadenopathy. CARDIOVASCULAR: Regular rate and rhythm without murmurs, gallops, or rubs. RESPIRATORY: Breath sounds equal bilaterally. No accessory muscle use. GASTROINTESTINAL: Abdomen soft, non-tender, nondistended. MUSCULOSKELETAL: No cyanosis, or edema. BACK: Nontender without obvious deformity. No CVA tenderness. A/P Assessment and Plan Hypoxic RF Bilat extensive ground glass infilt Breast ca Dysnoea PLAN: Cont IV Solumedrol Aerosol nebs Supplement 02 to keep sat >90% GI prophylaxis DW pt and family Babatunde Schultz MD Sep 16, 2016 19:36
[2016-09-17] VITALS (9 sets, daily range): BP systolic 119–137; BP diastolic 60–71; PULSE 105–120; RESP 20–22; TEMP 97.5–98; O2SAT 90–100
[2016-09-17] MEDS: INSULIN NovoLIN REGULAR SUPPLEMENTAL SCALE SQ SCH ×4 (06:01→22:14)
[2016-09-17] MEDS: RESP: ALBUTEROL 2.5 MG/IPRATROPIUM 0.5 MG NEB (SCH) NEB ×2 (09:10→19:46)
[2016-09-17] MEDS: ATORVASTATIN 80 MG TAB PO SCH (09:24)
[2016-09-17] MEDS: TOLTERODINE TARTRATE 2 MG CAP LA PO SCH (09:24)
[2016-09-17] MEDS: SULFAMETHOXAZOLE-TRIMETHOPRIM DS 800-160 MG TAB PO SCH ×2 (09:24→22:05)
[2016-09-17] MEDS: guaiFENesin E.R. 600 MG TAB PO SCH ×2 (09:24→22:04)
[2016-09-17] MEDS: methylPREDNISolone SOD SUCC 125 MG/2 ML VIAL IV PUSH SCH ×2 (09:24→22:05)
[2016-09-17] MEDS: DOCUSATE SODIUM 50 MG/SENNA 8.6 MG TAB PO SCH ×2 (09:24→22:05)
[2016-09-17] MEDS: DULoxetine HCl DR 60 MG CAP PO SCH (09:24)
[2016-09-17] MEDS: POLYETHYLENE GLYCOL 17 GM PKG PO SCH (09:25)
[2016-09-17] MEDS: SODIUM CHLORIDE 0.9% FLUSH 10 ML FLUSH IV FLUSH SCH ×2 (09:25→21:00)
[2016-09-17] MEDS: PANTOPRAZOLE SOD 20 MG DELAYED RELEASE TAB PO SCH (09:25)
--- NOTE | 2016-09-17 12:12 | HHI.PR ---
Subjective Remarks up in chair states easily gets short of breath even with transfers still with generalized weakness Objective Vitals Vital Signs Date Time Temp Pulse Resp B/P Pulse Ox O2 Delivery O2 Flow Rate FiO2 09/17/16 12:00 114 09/17/16 12:00 90 Partial Non-Rebreather 11.00 09/17/16 09:33 Nasal Cannula 6.00 09/17/16 09:25 91 Nasal Cannula 6.00 09/17/16 08:00 97.7 108 20 137/71 91 09/17/16 04:00 97.7 105 20 125/66 94 09/17/16 00:00 97.8 114 20 124/70 92 09/16/16 21:39 90 Nasal Cannula 6.00 09/16/16 20:30 Nasal Cannula 6.00 Humidified 09/16/16 20:17 124 09/16/16 20:00 97.5 120 22 127/72 89 09/16/16 16:00 97.8 118 20 111/67 88 I/O 09/16/16 09/16/16 09/16/16 09/17/16 09/17/16 09/17/16 07:00 15:00 23:00 07:00 15:00 23:00 Intake Total 0 ml 1200 ml 300 ml 0 ml Output Total 0 ml 900 ml 0 ml Balance 0 ml 1200 ml -600 ml 0 ml Intake Oral 0 ml 1200 ml 300 ml 0 ml Output Urine Total 0 ml 900 ml 0 ml # Voids 0 # Bowel Movements 0 0 0 Objective Remarks awake and alert, oriented x 3 on 2LNC, anicteric lungs- no rales or wheezes regular rhythm abdomen soft, nontender extremities no edema neuro exam- unremarkable Date of Removal: Sep 04, 2016 A/P Problem List: (1) Hypoxia ICD Code: R09.02 Status: Acute (2) Bandemia ICD Code: D72.825 Status: Acute (3) Dehydration ICD Code: E86.0 Status: Resolved (4) Breast CA ICD Code: C50.919 Status: Acute (5) HTN (hypertension) ICD Code: I10 Status: Acute (6) Acute respiratory failure ICD Code: J96.00 Status: Resolved Assessment and Plan 76 years old female admitted for Acute hypoxemic respiratory failure- improving Extensive ground-glass opacities. Ddx: hypersensitivity pneumonitis vs chemotherapy induced pulmonary toxicity/ interstitial pneumonitis versus other causes of valvulitis Currently on 2-3 Lnasal cannula to maintain saturations greater than or equal to 92% Duo nebs 3 times a day and as needed dyspnea Solu-Medrol 60 mg IV every 8 hours- decreased to q 12- gradual taper CT chest/not PE study 08/29 revealed extensive bilateral ground glass opacification Followed by pulmonology- on Bactrim bid will do walk test prior to DC if qualifies for home - most likely will qualify Triple positive left breast cancer status post Herceptin scan and Taxol 07/15 weekly chemotherapy Normocytic anemia Leukocytosis Monitor CBC daily. Follow trends ID: Leukocytosis- on IV steroids on Bactrim bid - 09/13 start date Dyslipidemia Stage I diastolic dysfunction currently on Lipitor 80 mg by mouth at bedtime for dyslipidemia 2-D echo revealed EF 55%. Stage I diastolic dysfunction. Mild MR. Depression Continue Cymbalta 60 mg by mouth daily for depression Continue [place] for pain management good family support CV: Dyslipidemia Stage I diastolic dysfunction currently on Lipitor 80 mg by mouth at bedtime for dyslipidemia 2-D echo revealed EF 55%. Stage I diastolic dysfunction. Mild MR. GI: Advance diet as tolerated/regular Protonix for GI prophylaxis Letty-Colace twice a day bowel regimen with MiraLAX daily : Incontinence Gomez catheter- gomez removed- voiding Continue Detrol LA 2 mg by mouth daily Endo: Sliding-scale insulin with Accu-Cheks to maintain euglycemia/before meals and at bedtime/low regimen Renal: Monitor urine output daily Accurate I's and O's Hyper-magnesium Replace electrolytes as clinically indicated Msk: PT/OT evaluate and treat Access - Utilized peripheral IVs. Has right Port-A-Cath if needed Prophylaxis - GI - Protonix - DVT - SCD/heparin subcutaneous PT- educate- walker with Donald Palafox MD Sep 17, 2016 12:12
[2016-09-17] MEDS: ONDANSETRON HCL 4 MG/2 ML VIAL IVP PRN (12:54)
--- NOTE | 2016-09-17 15:49 | HHI.PR ---
Subjective Remarks 76 YOWF with Breast ca, Bilat extensive ground glass infilt Looks comfortable Denies sob Feels better Up in chair Has sob, put on PRB Objective Vital Signs Vital Signs Date Time Temp Pulse Resp B/P Pulse Ox O2 Delivery O2 Flow Rate FiO2 09/17/16 12:00 114 09/17/16 12:00 90 Partial Non-Rebreather 11.00 09/17/16 12:00 98.0 117 22 121/63 90 09/17/16 09:33 Nasal Cannula 6.00 09/17/16 09:25 91 Nasal Cannula 6.00 09/17/16 08:00 97.7 108 20 137/71 91 09/17/16 04:00 97.7 105 20 125/66 94 09/17/16 00:00 97.8 114 20 124/70 92 09/16/16 21:39 90 Nasal Cannula 6.00 09/16/16 20:30 Nasal Cannula 6.00 Humidified 09/16/16 20:17 124 09/16/16 20:00 97.5 120 22 127/72 89 09/16/16 16:00 97.8 118 20 111/67 88 I/O 09/16/16 09/16/16 09/16/16 09/17/16 09/17/16 09/17/16 07:00 15:00 23:00 07:00 15:00 23:00 Intake Total 0 ml 1200 ml 300 ml 0 ml 660 ml Output Total 0 ml 900 ml 0 ml Balance 0 ml 1200 ml -600 ml 0 ml 660 ml Intake Oral 0 ml 1200 ml 300 ml 0 ml 660 ml Output Urine Total 0 ml 900 ml 0 ml # Voids 0 0 # Bowel Movements 0 0 0 0 Objective Remarks GENERAL: MBMN WF mild sob SKIN: Warm and dry. HEAD: Normocephalic. EYES: No scleral icterus. No injection or drainage. NECK: Supple, trachea midline. No JVD or lymphadenopathy. CARDIOVASCULAR: Regular rate and rhythm without murmurs, gallops, or rubs. RESPIRATORY: Breath sounds equal bilaterally. No accessory muscle use. GASTROINTESTINAL: Abdomen soft, non-tender, nondistended. MUSCULOSKELETAL: No cyanosis, or edema. BACK: Nontender without obvious deformity. No CVA tenderness. A/P Assessment and Plan Hypoxic RF Bilat extensive ground glass infilt Breast ca Dysnoea PLAN: Cont IV Solumedrol Aerosol nebs Cont PRB Supplement 02 to keep sat >90% GI prophylaxis DW pt and family Babatunde Schultz MD Sep 17, 2016 15:49
[2016-09-17] MEDS: ENOXAPARIN SODIUM 40 MG/0.4 ML SYRINGE SQ SCH (16:54)
[2016-09-18] VITALS (11 sets, daily range): BP systolic 116–134; BP diastolic 65–75; PULSE 99–118; RESP 18–22; TEMP 97.4–98.9; O2SAT 88–97
[2016-09-18] MEDS: ONDANSETRON HCL 4 MG/2 ML VIAL IVP PRN ×2 (01:59→09:07)
[2016-09-18] MEDS: INSULIN NovoLIN REGULAR SUPPLEMENTAL SCALE SQ SCH ×4 (06:10→21:00)
--- NOTE | 2016-09-18 08:55 | HHI.PR ---
Subjective Remarks po appetite poor but taking ensure supplements easily gets short of breath with minimal exertion- advise her to take her time and pace herself afebrile no pain Objective Vitals Vital Signs Date Time Temp Pulse Resp B/P Pulse Ox O2 Delivery O2 Flow Rate FiO2 09/18/16 08:37 97 Nasal Cannula 6.00 09/18/16 04:00 97.4 114 20 116/70 92 09/18/16 00:00 97.4 118 20 134/73 95 09/17/16 20:35 92 Venturi Mask 50 09/17/16 20:00 97.7 120 20 119/60 92 09/17/16 19:49 100 Partial Rebreather 15.00 09/17/16 16:00 97.5 120 22 128/65 94 09/17/16 12:00 114 09/17/16 12:00 90 Partial Non-Rebreather 11.00 09/17/16 12:00 98.0 117 22 121/63 90 09/17/16 09:33 Nasal Cannula 6.00 09/17/16 09:25 91 Nasal Cannula 6.00 I/O 09/17/16 09/17/16 09/17/16 09/18/16 09/18/16 09/18/16 07:00 15:00 23:00 07:00 15:00 23:00 Intake Total 0 ml 660 ml 240 ml 0 ml Output Total 0 ml 600 ml Balance 0 ml 660 ml 240 ml -600 ml Intake Oral 0 ml 660 ml 240 ml 0 ml Output Urine Total 0 ml 600 ml # Voids 0 1 # Bowel Movements 0 0 0 0 Objective Remarks awake and alert, oriented x 3 on 6LNC, anicteric lungs- decrease breath sounds, no rales or wheezes regular rhythm abdomen soft, nontender extremities no edema neuro exam- unremarkable Date of Removal: Sep 04, 2016 A/P Problem List: (1) Hypoxia ICD Code: R09.02 Status: Acute (2) Bandemia ICD Code: D72.825 Status: Acute (3) Dehydration ICD Code: E86.0 Status: Resolved (4) Breast CA ICD Code: C50.919 Status: Acute (5) HTN (hypertension) ICD Code: I10 Status: Acute (6) Acute respiratory failure ICD Code: J96.00 Status: Resolved Assessment and Plan 76 years old female admitted for Acute hypoxemic respiratory failure- now on 6LNC Extensive ground-glass opacities. Ddx: hypersensitivity pneumonitis vs chemotherapy induced pulmonary toxicity/ interstitial pneumonitis versus other causes of valvulitis continue to adjust NC Duo nebs 3 times a day and as needed dyspnea Solu-Medrol 60 mg IV every 12 CT chest/not PE study 08/29 revealed extensive bilateral ground glass opacification Followed by pulmonology- on Bactrim bid will do walk test prior to DC if qualifies for home - most likely will qualify Triple positive left breast cancer status post Herceptin scan and Taxol 07/15 weekly chemotherapy Normocytic anemia Leukocytosis Monitor CBC daily. Follow trends ID: Bactrim bid - - 09/13 per Pulmonary Leukocytosis- on IV steroids Dyslipidemia Stage I diastolic dysfunction currently on Lipitor 80 mg by mouth at bedtime for dyslipidemia 2-D echo revealed EF 55%. Stage I diastolic dysfunction. Mild MR. Depression Continue Cymbalta 60 mg by mouth daily for depression Continue [place] for pain management good family support CV: Dyslipidemia Stage I diastolic dysfunction currently on Lipitor 80 mg by mouth at bedtime for dyslipidemia 2-D echo revealed EF 55%. Stage I diastolic dysfunction. Mild MR. GI: tolerating po but poor appetite Protonix for GI prophylaxis Letty-Colace twice a day bowel regimen with MiraLAX daily : Incontinence- improved Continue Detrol LA 2 mg by mouth daily Endo: Sliding-scale insulin with Accu-Cheks to maintain euglycemia/before meals and at bedtime/low regimen Renal: Monitor urine output daily Accurate I's and O's Hyper-magnesium Replace electrolytes as clinically indicated Msk: PT/OT evaluate and treat Access - Utilized peripheral IVs. Has right Port-A-Cath if needed Prophylaxis - GI - Protonix - DVT - SCD/heparin subcutaneous Donald Sanz MD Sep 18, 2016 08:55
[2016-09-18] MEDS: PANTOPRAZOLE SOD 20 MG DELAYED RELEASE TAB PO SCH (09:06)
[2016-09-18] MEDS: guaiFENesin E.R. 600 MG TAB PO SCH ×2 (09:06→22:16)
[2016-09-18] MEDS: ATORVASTATIN 80 MG TAB PO SCH (09:06)
[2016-09-18] MEDS: methylPREDNISolone SOD SUCC 125 MG/2 ML VIAL IV PUSH SCH ×2 (09:06→22:17)
[2016-09-18] MEDS: POLYETHYLENE GLYCOL 17 GM PKG PO SCH (09:06)
[2016-09-18] MEDS: DULoxetine HCl DR 60 MG CAP PO SCH (09:06)
[2016-09-18] MEDS: TOLTERODINE TARTRATE 2 MG CAP LA PO SCH (09:06)
[2016-09-18] MEDS: SULFAMETHOXAZOLE-TRIMETHOPRIM DS 800-160 MG TAB PO SCH ×2 (09:06→22:16)
[2016-09-18] MEDS: SODIUM CHLORIDE 0.9% FLUSH 10 ML FLUSH IV FLUSH SCH ×2 (09:07→22:17)
[2016-09-18] MEDS: DOCUSATE SODIUM 50 MG/SENNA 8.6 MG TAB PO SCH ×2 (09:08→21:00)
[2016-09-18] MEDS: RESP: ALBUTEROL 2.5 MG/IPRATROPIUM 0.5 MG NEB (SCH) NEB (10:29)
--- NOTE | 2016-09-18 15:57 | HHI.PR ---
Subjective Remarks 76 YOWF with Breast ca, Bilat extensive ground glass infilt Looks comfortable Denies sob Feels better Up in chair Weaned to 4LNC, feels better Objective Vital Signs Vital Signs Date Time Temp Pulse Resp B/P Pulse Ox O2 Delivery O2 Flow Rate FiO2 09/18/16 12:02 97.7 112 18 123/70 88 09/18/16 10:30 91 Nasal Cannula 6.00 09/18/16 09:21 99 09/18/16 09:21 Venturi Mask 9.00 09/18/16 08:37 97 Nasal Cannula 6.00 09/18/16 08:02 98.9 105 18 133/69 89 09/18/16 04:00 97.4 114 20 116/70 92 09/18/16 00:00 97.4 118 20 134/73 95 09/17/16 20:35 92 Venturi Mask 50 09/17/16 20:00 97.7 120 20 119/60 92 09/17/16 19:49 100 Partial Rebreather 15.00 09/17/16 16:00 97.5 120 22 128/65 94 I/O 09/17/16 09/17/16 09/17/16 09/18/16 09/18/16 09/18/16 07:00 15:00 23:00 07:00 15:00 23:00 Intake Total 0 ml 660 ml 240 ml 0 ml Output Total 0 ml 600 ml Balance 0 ml 660 ml 240 ml -600 ml Intake Oral 0 ml 660 ml 240 ml 0 ml Output Urine Total 0 ml 600 ml # Voids 0 1 # Bowel Movements 0 0 0 0 Objective Remarks GENERAL: MBMN WF mild sob SKIN: Warm and dry. HEAD: Normocephalic. EYES: No scleral icterus. No injection or drainage. NECK: Supple, trachea midline. No JVD or lymphadenopathy. CARDIOVASCULAR: Regular rate and rhythm without murmurs, gallops, or rubs. RESPIRATORY: Breath sounds equal bilaterally. No accessory muscle use. GASTROINTESTINAL: Abdomen soft, non-tender, nondistended. MUSCULOSKELETAL: No cyanosis, or edema. BACK: Nontender without obvious deformity. No CVA tenderness. A/P Assessment and Plan Hypoxic RF Bilat extensive ground glass infilt Breast ca Dysnoea PLAN: Cont IV Solumedrol Aerosol nebs Cont 02 4LNC Supplement 02 to keep sat >90% GI prophylaxis DW pt and family Babatunde Schultz MD Sep 18, 2016 15:57
[2016-09-18] MEDS: ENOXAPARIN SODIUM 40 MG/0.4 ML SYRINGE SQ SCH (17:08)
[2016-09-19] VITALS (9 sets, daily range): BP systolic 119–145; BP diastolic 65–80; PULSE 66–121; RESP 18–24; TEMP 97.1–97.8; O2SAT 88–92
[2016-09-19] MEDS: INSULIN NovoLIN REGULAR SUPPLEMENTAL SCALE SQ SCH ×4 (06:04→21:59)
[2016-09-19] MEDS: TOLTERODINE TARTRATE 2 MG CAP LA PO SCH (08:57)
[2016-09-19] MEDS: methylPREDNISolone SOD SUCC 125 MG/2 ML VIAL IV PUSH SCH (08:58)
[2016-09-19] MEDS: SULFAMETHOXAZOLE-TRIMETHOPRIM DS 800-160 MG TAB PO SCH ×2 (08:59→21:55)
[2016-09-19] MEDS: guaiFENesin E.R. 600 MG TAB PO SCH ×2 (08:59→21:55)
[2016-09-19] MEDS: DULoxetine HCl DR 60 MG CAP PO SCH (08:59)
[2016-09-19] MEDS: ATORVASTATIN 80 MG TAB PO SCH (08:59)
[2016-09-19] MEDS: PANTOPRAZOLE SOD 20 MG DELAYED RELEASE TAB PO SCH (08:59)
[2016-09-19] MEDS: DOCUSATE SODIUM 50 MG/SENNA 8.6 MG TAB PO SCH ×2 (09:00→21:55)
[2016-09-19] MEDS: SODIUM CHLORIDE 0.9% FLUSH 10 ML FLUSH IV FLUSH SCH ×2 (09:00→21:55)
[2016-09-19] MEDS: POLYETHYLENE GLYCOL 17 GM PKG PO SCH (09:09)
--- NOTE | 2016-09-19 10:14 | PD.ONC.PN ---
Subjective Subjective Remarks Afebrile overnight. Patient resting in bed with son at bedside. Feels that she is breathing better, but is tired. Objective Data Date Time Temp Pulse Resp B/P Pulse Ox O2 Delivery O2 Flow Rate FiO2 09/19/16 08:00 97.6 108 18 119/80 91 09/19/16 05:10 97.6 110 24 145/71 92 09/18/16 23:50 Nasal Cannula 6.00 Humidified 09/18/16 23:50 97.8 103 22 134/75 96 09/18/16 20:50 Nasal Cannula 6.00 Humidified 09/18/16 20:50 97.7 114 22 121/67 91 09/18/16 20:00 110 09/18/16 16:02 97.4 112 18 129/65 96 09/18/16 12:02 97.7 112 18 123/70 88 09/18/16 10:30 91 Nasal Cannula 6.00 09/19/16 09/19/16 09/19/16 07:00 15:00 23:00 Intake Total 0 ml Output Total 200 ml Balance -200 ml Administered Medications Medications (Trade) Dose Ordered Sig/Aurelia Route PRN Reason Start Time Stop Time Status Last Admin Dose Admin Guaifenesin (Mucinex Er) 600 mg BID PO 08/26/16 21:00 09/19/16 08:59 Sodium Chloride (NS Flush) 2 ml UNSCH PRN IV FLUSH FLUSH AFTER USING IV ACCESS 08/26/16 20:00 09/15/16 01:00 Sodium Chloride (NS Flush) 2 ml BID IV FLUSH 08/26/16 21:00 09/18/16 22:17 Ondansetron HCl (Zofran Inj) 4 mg Q6H PRN IVP NAUSEA OR VOMITING 08/26/16 20:00 09/18/16 09:07 Acetaminophen (Tylenol) 650 mg Q6H PRN PO FEVER/PAIN SCALE 1 TO 2 08/26/16 20:00 08/30/16 01:45 Senna/Docusate Sodium (Letty-Colace) 1 tab BID PO 08/26/16 21:00 09/18/16 21:00 Lactulose (Lactulose Liq) 30 ml DAILY PRN PO SEVERE CONSITIPATION 08/26/16 20:00 09/01/16 09:06 Duloxetine HCl (Cymbalta Dr) 60 mg DAILY PO 08/27/16 09:00 09/19/16 08:59 Atorvastatin Calcium (Lipitor) 80 mg DAILY PO 08/27/16 09:00 09/19/16 08:59 Tolterodine Tartrate (Detrol La) 2 mg DAILY PO 08/27/16 09:00 09/19/16 08:57 Pantoprazole Sodium (Protonix) 20 mg DAILY PO 08/29/16 11:45 09/19/16 08:59 Insulin Human Regular (NovoLIN R SUPPLEMENTAL SCALE) 1 ACHS SQ 09/01/16 16:00 09/18/16 17:11 Polyethylene Glycol (Miralax) 17 gm DAILY PO 09/02/16 09:00 09/19/16 09:09 Trimethoprim/ Sulfamethoxazole (Bactrim Ds 800-160 Mg) 1 tab BID PO 09/13/16 09:00 09/19/16 08:59 Methylprednisolone Sodium Succinate (SoluMEDROL INJ) 60 mg Q12HR IV PUSH 09/16/16 21:00 09/19/16 08:58 Enoxaparin Sodium (Lovenox Inj) 40 mg Q24H SQ 09/17/16 18:00 09/18/16 17:08 Objective Remarks GENERAL: Elderly female, sitting up in bed on 6L O2 via NC. appears fatigued. SKIN: Warm and dry. HEAD: Normocephalic. EYES: No injection or drainage. NECK: Supple, trachea midline. CARDIOVASCULAR: Regular rate and rhythm RESPIRATORY: diminished at bases. scattered rhonchi GASTROINTESTINAL: Abdomen soft, non-tender, nondistended. EXTREMITIES: No cyanosis NEUROLOGICAL: aox3. normal speech. moving all extremities. Assessment/Plan Problem List: (1) Hypoxia Status: Acute Plan: 09/19: remains on 6L, but appears increasingly fatigued. continue steroids. --ECHO = no decrease LVEF --pulmonary toxicity either due to Herceptin or Taxol --dr. Hammond, pulmonology following --V/Q scan in the emergency room --> low probability for pulmonary embolism. --CT chest, 09/12: interstitial changes becoming more coarse with time. (2) Breast CA Status: Acute Plan: no further chemo. --started on weekly Herceptin and Taxol chemotherapy on July 15. Assessment 76y/o with triple positive left breast cancer admitted with respiratory insufficiency. Attending Statement SOB and HURLEY No Fevers O2 4 lit NC continue steroid Josey Gandara Sep 19, 2016 10:14 Tiburcio Kirk MD Sep 19, 2016 21:48
[2016-09-19] MEDS: RESP: ALBUTEROL 2.5 MG/IPRATROPIUM 0.5 MG NEB (PRN) NEB (10:35)
--- NOTE | 2016-09-19 11:07 | HHI.PR ---
Subjective Remarks feeling better minimal cough exam- no wheezing Objective Vitals Vital Signs Date Time Temp Pulse Resp B/P Pulse Ox O2 Delivery O2 Flow Rate FiO2 09/19/16 10:49 92 Nasal Cannula 4.00 09/19/16 08:00 97.6 108 18 119/80 91 09/19/16 05:10 97.6 110 24 145/71 92 09/18/16 23:50 Nasal Cannula 6.00 Humidified 09/18/16 23:50 97.8 103 22 134/75 96 09/18/16 20:50 Nasal Cannula 6.00 Humidified 09/18/16 20:50 97.7 114 22 121/67 91 09/18/16 20:00 110 09/18/16 16:02 97.4 112 18 129/65 96 09/18/16 12:02 97.7 112 18 123/70 88 I/O 09/18/16 09/18/16 09/18/16 09/19/16 09/19/16 09/19/16 07:00 15:00 23:00 07:00 15:00 23:00 Intake Total 0 ml 360 ml 420 ml 0 ml Output Total 600 ml 600 ml 200 ml Balance -600 ml 360 ml -180 ml -200 ml Intake Oral 0 ml 360 ml 420 ml 0 ml Output Urine Total 600 ml 600 ml 200 ml # Voids 1 # Bowel Movements 0 0 0 0 Imaging Last Impressions Chest X-Ray 09/12/16 0000 Signed Impressions: Service Date/Time: Monday, September 12, 2016 10:22 - CONCLUSION: Stable chest x-ray with peripheral and lower lung zone predominant interstitial opacities bilaterally. Romel Haas MD Chest CT 09/12/16 0000 Signed Impressions: Service Date/Time: Monday, September 12, 2016 16:11 - CONCLUSION: Interstitial changes are becoming more coarse over time. There is no pneumothorax, pericardial effusion, or adenopathy. Soy Harper MD FACR Lung Scan- Nuclear Medicine 08/26/16 0000 Signed Impressions: Service Date/Time: Friday, August 26, 2016 20:26 - CONCLUSION: 1. Low probability for pulmonary embolus. Checo Conner MD CT Angiography 08/26/16 0000 Signed Impressions: Service Date/Time: Friday, August 26, 2016 16:50 - CONCLUSION: 1. Negative for pulmonary embolus. Pulmonary fibrosis as above, not easily classifiable. There is also extensive groundglass opacity with lobular sparing. Differential diagnosis includes sequela of drug reaction or subacute hypersensitivity pneumonitis, atypical usual interstitial pneumonitis, or other causes of alveolitis. Checo Conner MD Objective Remarks awake and alert, oriented x 3 on 6LNC, anicteric lungs- decrease breath sounds, no rales or wheezes regular rhythm abdomen soft, nontender extremities no edema neuro exam- unremarkable Date of Removal: Sep 04, 2016 A/P Problem List: (1) Hypoxia ICD Code: R09.02 Status: Acute (2) Bandemia ICD Code: D72.825 Status: Acute (3) Dehydration ICD Code: E86.0 Status: Resolved (4) Breast CA ICD Code: C50.919 Status: Acute (5) HTN (hypertension) ICD Code: I10 Status: Acute (6) Acute respiratory failure ICD Code: J96.00 Status: Resolved Assessment and Plan 76 years old female admitted for Acute hypoxemic respiratory failure- now on 6LNC Extensive ground-glass opacities. Ddx: hypersensitivity pneumonitis vs chemotherapy induced pulmonary toxicity/ interstitial pneumonitis versus other causes of valvulitis continue to adjust NC Duo nebs 3 times a day and as needed dyspnea Solu-Medrol 60 mg IV every 12- chjange to po prednisone 40 mg po bid today 09/19 CT chest/not PE study 08/29 revealed extensive bilateral ground glass opacification Followed by pulmonology- on Bactrim bid will do walk test prior to DC if qualifies for home - will qualify Triple positive left breast cancer status post Herceptin scan and Taxol 07/15 weekly chemotherapy Normocytic anemia Leukocytosis Monitor CBC daily. Follow trends ID: Bactrim bid - - 09/13 per Pulmonary Leukocytosis- on IV steroids Dyslipidemia Stage I diastolic dysfunction currently on Lipitor 80 mg by mouth at bedtime for dyslipidemia 2-D echo revealed EF 55%. Stage I diastolic dysfunction. Mild MR. Depression Continue Cymbalta 60 mg by mouth daily for depression Continue [place] for pain management good family support CV: Dyslipidemia Stage I diastolic dysfunction currently on Lipitor 80 mg by mouth at bedtime for dyslipidemia 2-D echo revealed EF 55%. Stage I diastolic dysfunction. Mild MR. GI: tolerating po but poor appetite Protonix for GI prophylaxis Letty-Colace twice a day bowel regimen with MiraLAX daily : Incontinence- improved Continue Detrol LA 2 mg by mouth daily Endo: Sliding-scale insulin with Accu-Cheks to maintain euglycemia/before meals and at bedtime/low regimen Renal: Monitor urine output daily Accurate I's and O's Hyper-magnesium Replace electrolytes as clinically indicated Msk: PT/OT evaluate and treat Access - Utilized peripheral IVs. Has right Port-A-Cath if needed Prophylaxis - GI - Protonix - DVT - SCD/heparin subcutaneous DC planning Donald Sanz MD Sep 19, 2016 11:07
[2016-09-19 12:59] LABS: AUTOMATED NEUTROPHIL # 19.9 TH/MM3 (1.8-7.7); BASOPHIL % 0.1 % (0.0-2.0); EOSINOPHIL % 0.1 % (0.0-4.0); HEMATOCRIT 31.7 % (35.0-46.0); LYMPHOCYTE # 0.6 TH/MM3 (1.0-4.8); MEAN CELL VOLUME 84.8 FL (80.0-100.0); MEAN CORPUSCULAR HEMOGLOBIN 28.3 PG (27.0-34.0); MEAN CORPUSCULAR HGB CONC 33.3 % (32.0-36.0); MONO % 2.6 % (0.0-8.0); NEUT % 94.2 % (16.0-70.0); PLATELET COUNT 146 TH/MM3 (150-450); RED BLOOD COUNT 3.74 MIL/MM3 (4.00-5.30); RED CELL DISTRIBUTION WIDTH 17.3 % (11.6-17.2); WHITE BLOOD COUNT 21.1 TH/MM3 (4.0-11.0)
[2016-09-19 13:07] LABS: HEMO FLAGS AUTO DIFF
[2016-09-19 13:49] LABS: BANDS 3 % (0-6); MYELOCYTES 1 % (0-0); NEUTROPHIL # MANUAL DIFF 18.1 TH/MM3 (1.8-7.7); POLYS (SEG NEUTROPHILS) 82 % (16-70); WBC DIFF SAMPLE 100
[2016-09-19 13:50] LABS: OVALOCYTES 1+ (NORMAL); PLATELET ESTIMATE SMEAR LOW (NORMAL); PLATELET MORPHOLOGY NORMAL (NORMAL); SCAN/DIFF FINAL DIFF MANUAL
[2016-09-19] MEDS: ENOXAPARIN SODIUM 40 MG/0.4 ML SYRINGE SQ SCH (18:27)
--- NOTE | 2016-09-19 20:17 | HHI.PR ---
Subjective Remarks 76 YOWF with Breast ca, Bilat extensive ground glass infilt Looks comfortable Denies sob Feels better Up in chair Weaned to 4LNC, feels better no new complaint Objective Vital Signs Vital Signs Date Time Temp Pulse Resp B/P Pulse Ox O2 Delivery O2 Flow Rate FiO2 09/19/16 16:00 97.1 107 20 137/78 88 09/19/16 12:00 97.4 103 18 136/65 92 09/19/16 10:49 92 Nasal Cannula 4.00 09/19/16 08:19 98 09/19/16 08:00 97.6 108 18 119/80 91 09/19/16 08:00 Nasal Cannula 6.00 Humidified 09/19/16 05:10 97.6 110 24 145/71 92 09/18/16 23:50 Nasal Cannula 6.00 Humidified 09/18/16 23:50 97.8 103 22 134/75 96 09/18/16 20:50 Nasal Cannula 6.00 Humidified 09/18/16 20:50 97.7 114 22 121/67 91 I/O 09/18/16 09/18/16 09/18/16 09/19/16 09/19/16 09/19/16 07:00 15:00 23:00 07:00 15:00 23:00 Intake Total 0 ml 360 ml 420 ml 0 ml 960 ml Output Total 600 ml 600 ml 200 ml Balance -600 ml 360 ml -180 ml -200 ml 960 ml Intake Oral 0 ml 360 ml 420 ml 0 ml 960 ml Output Urine Total 600 ml 600 ml 200 ml # Voids 1 3 # Bowel Movements 0 0 0 0 1 Result Diagram: 09/19/16 1230 Objective Remarks GENERAL: MBMN WF mild sob SKIN: Warm and dry. HEAD: Normocephalic. EYES: No scleral icterus. No injection or drainage. NECK: Supple, trachea midline. No JVD or lymphadenopathy. CARDIOVASCULAR: Regular rate and rhythm without murmurs, gallops, or rubs. RESPIRATORY: Breath sounds equal bilaterally. No accessory muscle use. GASTROINTESTINAL: Abdomen soft, non-tender, nondistended. MUSCULOSKELETAL: No cyanosis, or edema. BACK: Nontender without obvious deformity. No CVA tenderness. A/P Assessment and Plan Hypoxic RF Bilat extensive ground glass infilt Breast ca Dysnoea PLAN: Cont IV Solumedrol Aerosol nebs Cont 02 4LNC Supplement 02 to keep sat >90% GI prophylaxis Babatunde Schultz MD Sep 19, 2016 20:17
[2016-09-19] MEDS: predniSONE 20 MG TAB PO SCH (21:55)
[2016-09-19] MEDS: ONDANSETRON HCL 4 MG/2 ML VIAL IVP PRN (22:08)
[2016-09-20] VITALS (7 sets, daily range): BP systolic 116–156; BP diastolic 69–79; PULSE 97–118; RESP 22; TEMP 97.1–97.9; O2SAT 86–93
[2016-09-20] MEDS: INSULIN NovoLIN REGULAR SUPPLEMENTAL SCALE SQ SCH ×4 (06:26→21:29)
[2016-09-20] MEDS: DULoxetine HCl DR 60 MG CAP PO SCH (08:40)
[2016-09-20] MEDS: ATORVASTATIN 80 MG TAB PO SCH (08:40)
[2016-09-20] MEDS: PANTOPRAZOLE SOD 20 MG DELAYED RELEASE TAB PO SCH (08:41)
[2016-09-20] MEDS: predniSONE 20 MG TAB PO SCH ×2 (08:41→21:31)
[2016-09-20] MEDS: TOLTERODINE TARTRATE 2 MG CAP LA PO SCH (08:41)
[2016-09-20] MEDS: POLYETHYLENE GLYCOL 17 GM PKG PO SCH (08:41)
[2016-09-20] MEDS: SULFAMETHOXAZOLE-TRIMETHOPRIM DS 800-160 MG TAB PO SCH ×2 (08:41→21:30)
[2016-09-20] MEDS: SODIUM CHLORIDE 0.9% FLUSH 10 ML FLUSH IV FLUSH SCH ×2 (08:41→21:31)
[2016-09-20] MEDS: DOCUSATE SODIUM 50 MG/SENNA 8.6 MG TAB PO SCH ×2 (08:41→21:00)
[2016-09-20] MEDS: guaiFENesin E.R. 600 MG TAB PO SCH ×2 (08:41→21:30)
--- NOTE | 2016-09-20 09:59 | PD.ONC.PN ---
Subjective Subjective Remarks Afebrile overnight. Still feeling tired. On only 4L O2 now. In better spirits today. Objective Data Date Time Temp Pulse Resp B/P Pulse Ox O2 Delivery O2 Flow Rate FiO2 09/20/16 04:35 97.6 110 22 136/78 88 09/20/16 00:25 97.7 103 22 139/77 92 09/20/16 00:00 Nasal Cannula 4.00 09/19/16 21:29 88 Nasal Cannula 4.00 09/19/16 20:43 97.8 121 22 131/76 88 09/19/16 20:00 Nasal Cannula 4.00 Humidified 09/19/16 20:00 115 09/19/16 20:00 66 09/19/16 16:00 97.1 107 20 137/78 88 09/19/16 12:00 97.4 103 18 136/65 92 09/19/16 10:49 92 Nasal Cannula 4.00 09/20/16 09/20/16 09/20/16 06:59 14:59 22:59 Intake Total 0 ml Output Total 500 ml Balance -500 ml Result Diagram: 09/19/16 1230 Laboratory Results Laboratory Tests Test 09/19/16 12:30 White Blood Count 21.1 TH/MM3 Red Blood Count 3.74 MIL/MM3 Hemoglobin 10.6 GM/DL Hematocrit 31.7 % Mean Corpuscular Volume 84.8 FL Mean Corpuscular Hemoglobin 28.3 PG Mean Corpuscular Hemoglobin 33.3 % Concent Red Cell Distribution Width 17.3 % Platelet Count 146 TH/MM3 Mean Platelet Volume 9.7 FL Neutrophils (%) (Auto) 94.2 % Lymphocytes (%) (Auto) 3.0 % Monocytes (%) (Auto) 2.6 % Eosinophils (%) (Auto) 0.1 % Basophils (%) (Auto) 0.1 % Neutrophils # (Auto) 19.9 TH/MM3 Lymphocytes # (Auto) 0.6 TH/MM3 Monocytes # (Auto) 0.6 TH/MM3 Eosinophils # (Auto) 0.0 TH/MM3 Basophils # (Auto) 0.0 TH/MM3 CBC Comment AUTO DIFF Differential Total Cells 100 Counted Neutrophils % (Manual) 82 % Band Neutrophils % 3 % Lymphocytes % 12 % Monocytes % 2 % Neutrophils # (Manual) 18.1 TH/MM3 Myelocytes 1 % Differential Comment FINAL DIFF MANUAL Platelet Estimate LOW Platelet Morphology Comment NORMAL Ovalocytes 1+ Administered Medications Medications (Trade) Dose Ordered Sig/Aurelia Route PRN Reason Start Time Stop Time Status Last Admin Dose Admin Guaifenesin (Mucinex Er) 600 mg BID PO 08/26/16 21:00 09/20/16 08:41 Sodium Chloride (NS Flush) 2 ml UNSCH PRN IV FLUSH FLUSH AFTER USING IV ACCESS 08/26/16 20:00 09/15/16 01:00 Sodium Chloride (NS Flush) 2 ml BID IV FLUSH 08/26/16 21:00 09/20/16 08:41 Ondansetron HCl (Zofran Inj) 4 mg Q6H PRN IVP NAUSEA OR VOMITING 08/26/16 20:00 09/19/16 22:08 Acetaminophen (Tylenol) 650 mg Q6H PRN PO FEVER/PAIN SCALE 1 TO 2 08/26/16 20:00 08/30/16 01:45 Senna/Docusate Sodium (Letty-Colace) 1 tab BID PO 08/26/16 21:00 09/20/16 08:41 Lactulose (Lactulose Liq) 30 ml DAILY PRN PO SEVERE CONSITIPATION 08/26/16 20:00 09/01/16 09:06 Duloxetine HCl (Cymbalta Dr) 60 mg DAILY PO 08/27/16 09:00 09/20/16 08:40 Atorvastatin Calcium (Lipitor) 80 mg DAILY PO 08/27/16 09:00 09/20/16 08:40 Tolterodine Tartrate (Detrol La) 2 mg DAILY PO 08/27/16 09:00 09/20/16 08:41 Pantoprazole Sodium (Protonix) 20 mg DAILY PO 08/29/16 11:45 09/20/16 08:41 Insulin Human Regular (NovoLIN R SUPPLEMENTAL SCALE) 1 ACHS SQ 09/01/16 16:00 09/18/16 17:11 Polyethylene Glycol (Miralax) 17 gm DAILY PO 09/02/16 09:00 09/20/16 08:41 Trimethoprim/ Sulfamethoxazole (Bactrim Ds 800-160 Mg) 1 tab BID PO 09/13/16 09:00 09/20/16 08:41 Enoxaparin Sodium (Lovenox Inj) 40 mg Q24H SQ 09/17/16 18:00 09/19/16 18:27 Prednisone (Deltasone) 40 mg BID PO 09/19/16 21:00 09/20/16 08:41 Objective Remarks GENERAL: Elderly female, chronically ill appearing, upright in bed, eating breakfast. SKIN: Warm and dry. HEAD: Normocephalic. EYES: No injection or drainage. NECK: Supple, trachea midline. CARDIOVASCULAR: Regular rate and rhythm RESPIRATORY: diminished at bases, scattered rhonchi. on 4L o2 via nc GASTROINTESTINAL: Abdomen soft, non-tender, nondistended. EXTREMITIES: No cyanosis, or edema. NEUROLOGICAL: No obvious focal deficit. Awake, alert, and oriented x3. Assessment/Plan Problem List: (1) Hypoxia Status: Acute Plan: 09/20: now on 4L. continue steroids. monitor respiratory improvement. --ECHO = no decrease LVEF --pulmonary toxicity either due to Herceptin or Taxol --dr. Hammond, pulmonology following --V/Q scan in the emergency room --> low probability for pulmonary embolism. --CT chest, 09/12: interstitial changes becoming more coarse with time. (2) Breast CA Status: Acute Plan: no further chemo. --started on weekly Herceptin and Taxol chemotherapy on July 15. Assessment 76y/o with triple positive left breast cancer admitted with respiratory insufficiency. Attending Statement no new c/o On 4 lit O2 continue steroids. will follow. Josey Gandara Sep 20, 2016 09:59 Tiburcio Kirk MD Sep 20, 2016 22:13
--- NOTE | 2016-09-20 13:36 | HHI.PR ---
Subjective Remarks feels better having difficulty swallowing- feels stuck no nausea or vomiting Objective Vitals Vital Signs Date Time Temp Pulse Resp B/P Pulse Ox O2 Delivery O2 Flow Rate FiO2 09/20/16 08:30 97 09/20/16 08:30 Nasal Cannula 4.00 Humidified 09/20/16 08:05 97.8 104 22 137/79 93 09/20/16 04:35 97.6 110 22 136/78 88 09/20/16 00:25 97.7 103 22 139/77 92 09/20/16 00:00 Nasal Cannula 4.00 09/19/16 21:29 88 Nasal Cannula 4.00 09/19/16 20:43 97.8 121 22 131/76 88 09/19/16 20:00 Nasal Cannula 4.00 Humidified 09/19/16 20:00 115 09/19/16 20:00 66 09/19/16 16:00 97.1 107 20 137/78 88 I/O 09/19/16 09/19/16 09/19/16 09/20/16 09/20/16 09/20/16 07:00 15:00 23:00 07:00 15:00 23:00 Intake Total 0 ml 960 ml 240 ml 0 ml Output Total 200 ml 300 ml 500 ml Balance -200 ml 960 ml -60 ml -500 ml Intake Oral 0 ml 960 ml 240 ml 0 ml Output Urine Total 200 ml 300 ml 500 ml # Voids 3 # Bowel Movements 0 1 0 0 Result Diagram: 09/19/16 1230 Imaging Last Impressions Chest X-Ray 09/12/16 0000 Signed Impressions: Service Date/Time: Monday, September 12, 2016 10:22 - CONCLUSION: Stable chest x-ray with peripheral and lower lung zone predominant interstitial opacities bilaterally. Romel Haas MD Chest CT 09/12/16 0000 Signed Impressions: Service Date/Time: Monday, September 12, 2016 16:11 - CONCLUSION: Interstitial changes are becoming more coarse over time. There is no pneumothorax, pericardial effusion, or adenopathy. Soy Harper MD FACR Lung Scan-VQ Nuclear Medicine 08/26/16 0000 Signed Impressions: Service Date/Time: Friday, August 26, 2016 20:26 - CONCLUSION: 1. Low probability for pulmonary embolus. Checo Conner MD CT Angiography 08/26/16 0000 Signed Impressions: Service Date/Time: Friday, August 26, 2016 16:50 - CONCLUSION: 1. Negative for pulmonary embolus. Pulmonary fibrosis as above, not easily classifiable. There is also extensive groundglass opacity with lobular sparing. Differential diagnosis includes sequela of drug reaction or subacute hypersensitivity pneumonitis, atypical usual interstitial pneumonitis, or other causes of alveolitis. Checo Conner MD Objective Remarks awake and alert, oriented x 3 on 6LNC, anicteric lungs- decrease breath sounds, no rales or wheezes regular rhythm abdomen soft, nontender extremities no edema neuro exam- unremarkable Date of Removal: Sep 04, 2016 A/P Problem List: (1) Hypoxia ICD Code: R09.02 Status: Acute (2) Bandemia ICD Code: D72.825 Status: Acute (3) Dehydration ICD Code: E86.0 Status: Resolved (4) Breast CA ICD Code: C50.919 Status: Acute (5) HTN (hypertension) ICD Code: I10 Status: Acute (6) Acute respiratory failure ICD Code: J96.00 Status: Resolved Assessment and Plan 76 years old female admitted for Acute hypoxemic respiratory failure- now on 6LNC Extensive ground-glass opacities. Ddx: hypersensitivity pneumonitis vs chemotherapy induced pulmonary toxicity/ interstitial pneumonitis versus other causes of valvulitis continue to adjust NC Duo nebs 3 times a day and as needed dyspnea Solu-Medrol 60 mg IV every 12- chjange to po prednisone 40 mg po bid 09/19 CT chest/not PE study 08/29 revealed extensive bilateral ground glass opacification Followed by pulmonology- on Bactrim bid will do walk test prior to DC if qualifies for home - will qualify Triple positive left breast cancer status post Herceptin scan and Taxol 07/15 weekly chemotherapy Normocytic anemia Leukocytosis Monitor CBC daily. Follow trends ID: Bactrim bid - - 09/13 per Pulmonary Leukocytosis- on IV steroids Dyphagia- feels gas stuck in the throat- now states going on for about a week Poor po appetite - GI Consult- ? EGD r/o stricture -on PPIGI: tolerating po but poor appetite ? PEG candidate Protonix for GI prophylaxis Letty-Colace twice a day bowel regimen with MiraLAX daily Dyslipidemia Stage I diastolic dysfunction currently on Lipitor 80 mg by mouth at bedtime for dyslipidemia 2-D echo revealed EF 55%. Stage I diastolic dysfunction. Mild MR. Depression Continue Cymbalta 60 mg by mouth daily for depression Continue [place] for pain management good family support CV: Dyslipidemia Stage I diastolic dysfunction currently on Lipitor 80 mg by mouth at bedtime for dyslipidemia 2-D echo revealed EF 55%. Stage I diastolic dysfunction. Mild MR. : Incontinence- improved Continue Detrol LA 2 mg by mouth daily Endo: Sliding-scale insulin with Accu-Cheks to maintain euglycemia/before meals and at bedtime/low regimen Renal: Monitor urine output daily Accurate I's and O's Hyper-magnesium Replace electrolytes as clinically indicated Msk: PT/OT evaluate and treat Access - Utilized peripheral IVs. Has right Port-A-Cath if needed Prophylaxis - GI - Protonix - DVT - SCD/Lovenox- hold today in the event of EGD in am DC planning Donald Sazn MD Sep 20, 2016 13:36 Donald Sanz MD Sep 20, 2016 13:36
--- NOTE | 2016-09-20 15:48 | HHI.PR ---
Subjective Remarks 76 YOWF with Breast ca, Bilat extensive ground glass infilt Looks comfortable Denies sob Feels better Up in chair Weaned to 4LNC, feels better Steroids changed to PO Objective Vital Signs Vital Signs Date Time Temp Pulse Resp B/P Pulse Ox O2 Delivery O2 Flow Rate FiO2 09/20/16 12:04 97.9 118 22 156/72 86 09/20/16 08:30 97 09/20/16 08:30 Nasal Cannula 4.00 Humidified 09/20/16 08:05 97.8 104 22 137/79 93 09/20/16 04:35 97.6 110 22 136/78 88 09/20/16 00:25 97.7 103 22 139/77 92 09/20/16 00:00 Nasal Cannula 4.00 09/19/16 21:29 88 Nasal Cannula 4.00 09/19/16 20:43 97.8 121 22 131/76 88 09/19/16 20:00 Nasal Cannula 4.00 Humidified 09/19/16 20:00 115 09/19/16 20:00 66 09/19/16 16:00 97.1 107 20 137/78 88 I/O 09/19/16 09/19/16 09/19/16 09/20/16 09/20/16 09/20/16 07:00 15:00 23:00 07:00 15:00 23:00 Intake Total 0 ml 960 ml 240 ml 0 ml Output Total 200 ml 300 ml 500 ml Balance -200 ml 960 ml -60 ml -500 ml Intake Oral 0 ml 960 ml 240 ml 0 ml Output Urine Total 200 ml 300 ml 500 ml # Voids 3 # Bowel Movements 0 1 0 0 Result Diagram: 09/19/16 1230 Objective Remarks GENERAL: MBMN WF mild sob SKIN: Warm and dry. HEAD: Normocephalic. EYES: No scleral icterus. No injection or drainage. NECK: Supple, trachea midline. No JVD or lymphadenopathy. CARDIOVASCULAR: Regular rate and rhythm without murmurs, gallops, or rubs. RESPIRATORY: Breath sounds equal bilaterally. No accessory muscle use. GASTROINTESTINAL: Abdomen soft, non-tender, nondistended. MUSCULOSKELETAL: No cyanosis, or edema. BACK: Nontender without obvious deformity. No CVA tenderness. A/P Assessment and Plan Hypoxic RF Bilat extensive ground glass infilt Breast ca Dysnoea PLAN: PO Prednisone Aerosol nebs Cont 02 4LNC Supplement 02 to keep sat >90% GI prophylaxis will FU in AM Babatunde Schultz MD Sep 20, 2016 15:48
--- NOTE | 2016-09-20 16:11 | PD.CONS ---
HPI History of Present Illness This is a 76 year old female patient who has been in hospital for about 4 weeks. For the last week or so she has noticed a pressure sensation in her chest when she swallows, like a gas coming up as the food is going down. She has never had dysphagia before. She does not report odynophagia. No fever, no pain in throat or ears. She has recently treated breast cancer triple positive. the chemotherapy caused pulmonary interstitial lung disease and she became hypoxic. she is on supplemental oxygen. She is on prednisone. There are no more plans for chemotherapy. she reports having GERD for many years on prilosec. Never had EGD. Never had dysphagia before. Denies hematemesis or melena. ROS: denies headache, allergy symptoms. Denies chest pain, does have shortness of breath. No sputum. No abdominal pain, constipation. Otherwise complete ros is negative.[]. PFSH Past Medical History PMH: Breast CA on Chemotherapy Past Surgical History PAST SURGICAL HISTORY: Left Breast Lumpectomy Coded Allergies: No Known Allergies (Unverified , 08/26/16) Medications Current Medications Medications (Trade) Dose Ordered Sig/Aurelia Route Start Time Stop Time Status Last Admin (Mucinex Er) 600 mg BID PO 08/26/16 21:00 09/20/16 08:41 (NS Flush) 2 ml UNSCH PRN IV FLUSH 08/26/16 20:00 09/15/16 01:00 (NS Flush) 2 ml BID IV FLUSH 08/26/16 21:00 09/20/16 08:41 (Zofran Inj) 4 mg Q6H PRN IVP 08/26/16 20:00 09/19/16 22:08 (Tylenol) 650 mg Q6H PRN PO 08/26/16 20:00 08/30/16 01:45 ([place] 5-325 Mg) 1 tab Q4H PRN PO 08/26/16 20:00 (Morphine Inj) 2 mg Q3H PRN IV 08/26/16 20:00 (Letty-Colace) 1 tab BID PO 08/26/16 21:00 09/20/16 08:41 (Milk Of Magnesia Liq) 30 ml Q12H PRN PO 08/26/16 20:00 (Senokot) 17.2 mg Q12H PRN PO 08/26/16 20:00 (Dulcolax Supp) 10 mg DAILY PRN RECTAL 08/26/16 20:00 (Lactulose Liq) 30 ml DAILY PRN PO 08/26/16 20:00 09/01/16 09:06 (Cymbalta Dr) 60 mg DAILY PO 08/27/16 09:00 09/20/16 08:40 (Lipitor) 80 mg DAILY PO 08/27/16 09:00 09/20/16 08:40 (Detrol La) 2 mg DAILY PO 08/27/16 09:00 09/20/16 08:41 (Vasotec Inj) 1.25 mg Q6H PRN IV 08/28/16 10:30 (D50w (Vial) Inj) 50 ml UNSCH PRN IV 08/28/16 12:30 (Glucagon Inj) 1 mg UNSCH PRN OTHER 08/28/16 12:30 Miscellaneous Information Patient in critical care unit? Ass... Q361D .XX 08/28/16 19:30 (Protonix) 20 mg DAILY PO 08/29/16 11:45 09/20/16 08:41 (NovoLIN R SUPPLEMENTAL SCALE) 1 ACHS SQ 09/01/16 16:00 09/20/16 12:12 (Miralax) 17 gm DAILY PO 09/02/16 09:00 09/20/16 08:41 (Bactrim Ds 800-160 Mg) 1 tab BID PO 09/13/16 09:00 09/20/16 08:41 (Lovenox Inj) 40 mg Q24H SQ 09/17/16 18:00 Hold 09/19/16 18:27 (Deltasone) 40 mg BID PO 09/19/16 21:00 09/20/16 08:41 Family History PAST FAMILY HISTORY: Reviewed. No h/o DM or CAD Social History PAST SOCIAL HISTORY: Negative for alcohol, tobacco or drugs. GI Exam Vitals I&O Vital Signs Date Time Temp Pulse Resp B/P Pulse Ox O2 Delivery O2 Flow Rate FiO2 09/20/16 12:04 97.9 118 22 156/72 86 09/20/16 08:30 97 09/20/16 08:30 Nasal Cannula 4.00 Humidified 09/20/16 08:05 97.8 104 22 137/79 93 09/20/16 04:35 97.6 110 22 136/78 88 09/20/16 00:25 97.7 103 22 139/77 92 09/20/16 00:00 Nasal Cannula 4.00 09/19/16 21:29 88 Nasal Cannula 4.00 09/19/16 20:43 97.8 121 22 131/76 88 09/19/16 20:00 Nasal Cannula 4.00 Humidified 09/19/16 20:00 115 09/19/16 20:00 66 I/O 09/19/16 09/19/16 09/19/16 09/20/16 09/20/16 09/20/16 07:00 15:00 23:00 07:00 15:00 23:00 Intake Total 0 ml 960 ml 240 ml 0 ml Output Total 200 ml 300 ml 500 ml Balance -200 ml 960 ml -60 ml -500 ml Intake Oral 0 ml 960 ml 240 ml 0 ml Output Urine Total 200 ml 300 ml 500 ml # Voids 3 # Bowel Movements 0 1 0 0 Physical Examination HEENT: Pupils round and reactive to light; normocephalic; atraumatic; no jaundice. Throat is clear. Lips are dry NECK: Neck is supple, no JVD, no lymphadenopathy. CHEST: Chest is clear to auscultation and percussion. CARDIAC: Regular rate and rhythm with no murmur gallop or rubs. ABDOMEN: Soft, nondistended, nontender; no hepatosplenomegaly; bowel sounds are present in all four quadrants. EXTREMITIES: No clubbing, cyanosis, or edema. SKIN: Normal; no rash; no jaundice. CRNA: No focal deficits; alert and oriented times three. Assessment and Plan Plan Impression: -Dysphagia, mild. - interstitial lung disease caused by cancer chemotherapy - Breast cancer triple positive - Gerd Plan: - EGD tomorrow - continue PPI - further recommendations after the above. Joon Vang MD Sep 20, 2016 16:11
[2016-09-21] VITALS (12 sets, daily range): BP systolic 114–148; BP diastolic 56–75; PULSE 95–122; RESP 17–24; TEMP 97.4–98.2; O2SAT 88–98
[2016-09-21] MEDS: INSULIN NovoLIN REGULAR SUPPLEMENTAL SCALE SQ SCH ×4 (05:44→21:11)
[2016-09-21] MEDS: DOCUSATE SODIUM 50 MG/SENNA 8.6 MG TAB PO SCH ×2 (09:00→21:00)
[2016-09-21] MEDS: POLYETHYLENE GLYCOL 17 GM PKG PO SCH (09:00)
--- NOTE | 2016-09-21 10:28 | HHI.GIFU ---
Subjective Remarks Pt could not have her EGD today because she is still hypoxic. Anesthesia called Dr Hammond, pulmonary who advised cancelling any sedated procedure. We will cancel her procedure and instead get a barium swallow today. She is NPO. I explained this to the patient and she indicated understanding. Objective Vitals I&O Vital Signs Date Time Temp Pulse Resp B/P Pulse Ox O2 Delivery O2 Flow Rate FiO2 09/21/16 10:04 97.8 113 20 148/73 92 09/21/16 08:20 Nasal Cannula 4.00 Humidified 09/21/16 08:20 100 09/21/16 08:00 97.8 113 20 148/73 88 09/21/16 04:00 97.7 95 18 135/68 95 09/21/16 04:00 Nasal Cannula 4.00 09/21/16 00:00 Nasal Cannula 4.00 Humidified 09/21/16 00:00 97.5 97 17 143/75 98 09/20/16 20:00 107 09/20/16 20:00 Nasal Cannula 4.00 Humidified 09/20/16 20:00 97.1 111 22 116/77 89 09/20/16 16:04 97.6 114 22 133/69 86 09/20/16 12:04 97.9 118 22 156/72 86 I/O 09/20/16 09/20/16 09/20/16 09/21/16 09/21/16 09/21/16 07:00 15:00 23:00 07:00 15:00 23:00 Intake Total 0 ml 600 ml Output Total 500 ml Balance -500 ml 600 ml Intake Oral 0 ml 600 ml Output Urine Total 500 ml # Voids 2 1 2 # Bowel Movements 0 1 Physical Exam HEENT: Pupils round and reactive to light; normocephalic; atraumatic; no jaundice. Throat is clear. NECK: Neck is supple, no JVD, no lymphadenopathy. CHEST: Chest is clear to auscultation and percussion. CARDIAC: Regular rate and rhythm with no murmur gallop or rubs. ABDOMEN: Soft, nondistended, nontender; no hepatosplenomegaly; bowel sounds are present in all four quadrants. EXTREMITIES: No clubbing, cyanosis, or edema. SKIN: Normal; no rash; no jaundice. OPTICAL MANAGER: No focal deficits; alert and oriented times three. Assessment and Plan Plan Impression: -Dysphagia, mild. - interstitial lung disease caused by cancer chemotherapy - Breast cancer triple positive - Gerd - Hypoxia is too severe to allow sedated procedure per Anesthesia and pulmonary Plan: - Barium swallow today. - If barium swallow is OK consider empiric treatment for possible niecy esophagitis. - continue PPI - further recommendations after the above. Joon Vang MD Sep 21, 2016 10:28
[2016-09-21] MEDS: guaiFENesin E.R. 600 MG TAB PO SCH ×2 (11:19→20:59)
[2016-09-21] MEDS: TOLTERODINE TARTRATE 2 MG CAP LA PO SCH (11:19)
[2016-09-21] MEDS: predniSONE 20 MG TAB PO SCH ×2 (11:19→20:59)
[2016-09-21] MEDS: ATORVASTATIN 80 MG TAB PO SCH (11:19)
[2016-09-21] MEDS: DULoxetine HCl DR 60 MG CAP PO SCH (11:20)
[2016-09-21] MEDS: PANTOPRAZOLE SOD 20 MG DELAYED RELEASE TAB PO SCH (11:20)
[2016-09-21] MEDS: SODIUM CHLORIDE 0.9% FLUSH 10 ML FLUSH IV FLUSH SCH ×2 (11:20→20:59)
[2016-09-21] MEDS: SULFAMETHOXAZOLE-TRIMETHOPRIM DS 800-160 MG TAB PO SCH ×2 (11:20→20:59)
--- NOTE | 2016-09-21 11:39 | RADRPT ---
EXAM DATE/TIME: 09/21/2016 10:48 [facility] COMPARISON: No previous studies available for comparison. INDICATIONS : Inability to swallow. FLUORO TIME: .7 minutes IMAGE COUNT: 16 CONTRAST: 1. Liquid E-Z Paque Barium Sulfate (60% w/v, 41% w.w) MEDICAL HISTORY : Carcinoma, breast. SURGICAL HISTORY : None. ENCOUNTER: Initial ACUITY: 1 week PAIN SCORE: 0/10 LOCATION: Bilateral upper esphagus FINDINGS: Air-contrast views of the hypopharynx demonstrate a normal mucosal surface without filling defect. R apid sequence images of the hypopharynx and cervical esophagus during the passage of barium demonstra te a normal swallowing function. No evidence of aspiration. Multiphasic examination of the esophagu s demonstrates no esophageal fold thickening, ulceration, or filling defect. Esophageal motility is g rossly within normal limits. There is a small hiatal hernia the GE junction. No evidence of fixed str ictures or mechanical obstruction. Patient states she cannot swallow a pill. CONCLUSION: 1. Small sliding hiatal hernia at the GE junction. 2. No mechanical obstruction is demonstrated. Ha Guardado MD on September 21, 2016 at 11:34 Board Certified Radiologist. This report was verified electronically.
--- NOTE | 2016-09-21 15:09 | HHI.PR ---
Subjective Remarks patient awake states swallowing /tolerting food on current consistency EGD this am cancelled because of low saturation- may not tolerate anesthesia - confirmed with Pulmonary- procedure cancelled Bas study ordered instead by GI Objective Vitals Vital Signs Date Time Temp Pulse Resp B/P Pulse Ox O2 Delivery O2 Flow Rate FiO2 09/21/16 12:00 97.4 112 20 138/69 90 09/21/16 10:04 97.8 113 20 148/73 92 09/21/16 08:20 Nasal Cannula 4.00 Humidified 09/21/16 08:20 100 09/21/16 08:03 95 Nasal Cannula 3.00 09/21/16 08:00 97.8 113 20 148/73 88 09/21/16 04:00 97.7 95 18 135/68 95 09/21/16 04:00 Nasal Cannula 4.00 09/21/16 00:00 Nasal Cannula 4.00 Humidified 09/21/16 00:00 97.5 97 17 143/75 98 09/20/16 20:00 107 09/20/16 20:00 Nasal Cannula 4.00 Humidified 09/20/16 20:00 97.1 111 22 116/77 89 09/20/16 16:04 97.6 114 22 133/69 86 I/O 09/20/16 09/20/16 09/20/16 09/21/16 09/21/16 09/21/16 07:00 15:00 23:00 07:00 15:00 23:00 Intake Total 0 ml 600 ml Output Total 500 ml Balance -500 ml 600 ml Intake Oral 0 ml 600 ml Output Urine Total 500 ml # Voids 2 1 2 # Bowel Movements 0 1 Result Diagram: 09/19/16 1230 Imaging Last Impressions Barium Swallow X-Ray 09/21/16 0000 Signed Impressions: Service Date/Time: Wednesday, September 21, 2016 10:48 - CONCLUSION: 1. Small sliding hiatal hernia at the GE junction. 2. No mechanical obstruction is demonstrated. Ha Guardado MD Chest X-Ray 09/12/16 0000 Signed Impressions: Service Date/Time: Monday, September 12, 2016 10:22 - CONCLUSION: Stable chest x-ray with peripheral and lower lung zone predominant interstitial opacities bilaterally. Romel Haas MD Chest CT 6/26/17 0000 Signed Impressions: Service Date/Time: Monday, September 12, 2016 16:11 - CONCLUSION: Interstitial changes are becoming more coarse over time. There is no pneumothorax, pericardial effusion, or adenopathy. Soy Harper MD FACR Lung Scan-VQ Nuclear Medicine 08/26/16 0000 Signed Impressions: Service Date/Time: Friday, August 26, 2016 20:26 - CONCLUSION: 1. Low probability for pulmonary embolus. Checo Conner MD CT Angiography 08/26/16 0000 Signed Impressions: Service Date/Time: Friday, August 26, 2016 16:50 - CONCLUSION: 1. Negative for pulmonary embolus. Pulmonary fibrosis as above, not easily classifiable. There is also extensive groundglass opacity with lobular sparing. Differential diagnosis includes sequela of drug reaction or subacute hypersensitivity pneumonitis, atypical usual interstitial pneumonitis, or other causes of alveolitis. Checo Conner MD Objective Remarks awake and alert, oriented x 3 on 6LNC, anicteric lungs- decrease breath sounds, no rales or wheezes regular rhythm abdomen soft, nontender extremities no edema neuro exam- unremarkable Date of Removal: Sep 04, 2016 A/P Problem List: (1) Hypoxia ICD Code: R09.02 Status: Acute (2) Bandemia ICD Code: D72.825 Status: Acute (3) Dehydration ICD Code: E86.0 Status: Resolved (4) Breast CA ICD Code: C50.919 Status: Acute (5) HTN (hypertension) ICD Code: I10 Status: Acute (6) Acute respiratory failure ICD Code: J96.00 Status: Resolved Assessment and Plan 76 years old female admitted for Acute hypoxemic respiratory failure- on 6LNC Extensive ground-glass opacities. Ddx: hypersensitivity pneumonitis vs chemotherapy induced pulmonary toxicity/ interstitial pneumonitis versus other causes of valvulitis continue to adjust NC Duo nebs 3 times a day and as needed dyspnea Solu-Medrol 60 mg IV every 12- change to po prednisone 40 mg po bid 09/19- gradual taper CT chest/not PE study 08/29 revealed extensive bilateral ground glass opacification Followed by pulmonology- on Bactrim bid Dr. barrientos ff closely along with us will do walk test prior to DC if qualifies for home - will qualify Triple positive left breast cancer status post Herceptin scan and Taxol 07/15 weekly chemotherapy Normocytic anemia Leukocytosis Monitor CBC daily. Follow trends ID: Bactrim bid - - 09/13 per Pulmonary Leukocytosis- on IV steroids Dyphagia- Poor po appetite - -EGD cancelled due to low 02 saturation- may not tolerate anesthesia -on PPIGI: - speech therapy consult for swallowing evaluation on PPI Letty-Colace twice a day bowel regimen with MiraLAX daily Dyslipidemia Stage I diastolic dysfunction currently on Lipitor 80 mg by mouth at bedtime for dyslipidemia 2-D echo revealed EF 55%. Stage I diastolic dysfunction. Mild MR. Depression Continue Cymbalta 60 mg by mouth daily for depression Continue [place] for pain management good family support CV: Dyslipidemia Stage I diastolic dysfunction currently on Lipitor 80 mg by mouth at bedtime for dyslipidemia 2-D echo revealed EF 55%. Stage I diastolic dysfunction. Mild MR. : Incontinence- improved Continue Detrol LA 2 mg by mouth daily Endo: Sliding-scale insulin with Accu-Cheks to maintain euglycemia/before meals and at bedtime/low regimen Renal: Monitor urine output daily Accurate I's and O's Hyper-magnesium Replace electrolytes as clinically indicated Msk: PT/OT evaluate and treat Access - Utilized peripheral IVs. Has right Port-A-Cath if needed Prophylaxis - GI - Protonix - DVT - SCD/Lovenox- restart- EGD cancelled DC planning- home when cleared Donald Sanz MD Sep 21, 2016 15:09 Donald Sanz MD Sep 21, 2016 15:09
--- NOTE | 2016-09-21 17:14 | PD.ONC.PN ---
Subjective Subjective Remarks No new c/o Heart burn Objective Data Date Time Temp Pulse Resp B/P Pulse Ox O2 Delivery O2 Flow Rate FiO2 09/21/16 12:00 97.4 112 20 138/69 90 09/21/16 10:04 97.8 113 20 148/73 92 09/21/16 08:20 Nasal Cannula 4.00 Humidified 09/21/16 08:20 100 09/21/16 08:03 95 Nasal Cannula 3.00 09/21/16 08:00 97.8 113 20 148/73 88 09/21/16 04:00 97.7 95 18 135/68 95 09/21/16 04:00 Nasal Cannula 4.00 09/21/16 00:00 Nasal Cannula 4.00 Humidified 09/21/16 00:00 97.5 97 17 143/75 98 09/20/16 20:00 107 09/20/16 20:00 Nasal Cannula 4.00 Humidified 09/20/16 20:00 97.1 111 22 116/77 89 Result Diagram: 09/19/16 1230 Imaging Studies Last 24 hours Impressions Barium Swallow X-Ray 09/21/16 0000 Signed Impressions: Service Date/Time: Wednesday, September 21, 2016 10:48 - CONCLUSION: 1. Small sliding hiatal hernia at the GE junction. 2. No mechanical obstruction is demonstrated. Ha Guardado MD Administered Medications Medications (Trade) Dose Ordered Sig/Aurelia Route PRN Reason Start Time Stop Time Status Last Admin Dose Admin Guaifenesin (Mucinex Er) 600 mg BID PO 08/26/16 21:00 09/21/16 11:19 Sodium Chloride (NS Flush) 2 ml UNSCH PRN IV FLUSH FLUSH AFTER USING IV ACCESS 08/26/16 20:00 09/15/16 01:00 Sodium Chloride (NS Flush) 2 ml BID IV FLUSH 08/26/16 21:00 09/21/16 11:20 Ondansetron HCl (Zofran Inj) 4 mg Q6H PRN IVP NAUSEA OR VOMITING 08/26/16 20:00 09/19/16 22:08 Acetaminophen (Tylenol) 650 mg Q6H PRN PO FEVER/PAIN SCALE 1 TO 2 08/26/16 20:00 08/30/16 01:45 Senna/Docusate Sodium (Letty-Colace) 1 tab BID PO 08/26/16 21:00 09/20/16 08:41 Lactulose (Lactulose Liq) 30 ml DAILY PRN PO SEVERE CONSITIPATION 08/26/16 20:00 09/01/16 09:06 Duloxetine HCl (Cymbalta Dr) 60 mg DAILY PO 08/27/16 09:00 09/21/16 11:20 Atorvastatin Calcium (Lipitor) 80 mg DAILY PO 08/27/16 09:00 09/21/16 11:19 Tolterodine Tartrate (Detrol La) 2 mg DAILY PO 08/27/16 09:00 09/21/16 11:19 Pantoprazole Sodium (Protonix) 20 mg DAILY PO 08/29/16 11:45 09/21/16 11:20 Insulin Human Regular (NovoLIN R SUPPLEMENTAL SCALE) 1 ACHS SQ 09/01/16 16:00 09/20/16 21:29 Polyethylene Glycol (Miralax) 17 gm DAILY PO 09/02/16 09:00 09/20/16 08:41 Trimethoprim/ Sulfamethoxazole (Bactrim Ds 800-160 Mg) 1 tab BID PO 09/13/16 09:00 09/21/16 11:20 Objective Remarks GENERAL: Well-nourished, well-developed patient. SKIN: Warm and dry. HEAD: Normocephalic. EYES: No scleral icterus. No injection or drainage. NECK: Supple, trachea midline. No JVD or lymphadenopathy. LYMPHATIC: No adenopathy. CARDIOVASCULAR: Regular rate and rhythm without murmurs. RESPIRATORY: Breath sounds equal bilaterally. No accessory muscle use. GASTROINTESTINAL: Abdomen soft, non-tender, nondistended. EXTREMITIES: No cyanosis, or edema. NEUROLOGICAL: No obvious focal deficit. Awake, alert, and oriented x3. Assessment/Plan Problem List: (1) Hypoxia Status: Acute Plan: 09/21 still on 4 liet O2 to keep O2 sat >90%. continue steroid Disposition per pulmonary. 09/20: now on 4L. continue steroids. monitor respiratory improvement. --ECHO = no decrease LVEF --pulmonary toxicity either due to Herceptin or Taxol --dr. Hammond, pulmonology following --V/Q scan in the emergency room --> low probability for pulmonary embolism. --CT chest, 6/26: interstitial changes becoming more coarse with time. (2) Breast CA Status: Acute Plan: no further chemo. --started on weekly Herceptin and Taxol chemotherapy on July 15. Assessment 76y/o with triple positive left breast cancer admitted with respiratory insufficiency. Tiburcio Kirk MD Sep 21, 2016 17:14
[2016-09-21] MEDS: ENOXAPARIN SODIUM 40 MG/0.4 ML SYRINGE SQ SCH (17:26)
--- NOTE | 2016-09-21 20:41 | RADRPT ---
EXAM DATE/TIME: 09/21/2016 19:53 [facility] COMPARISON: CT PULMONARY ANGIOGRAM, August 26, 2016, 16:50. INDICATIONS : Patient with shortness of breath. RADIATION DOSE: 5.1 CTDIvol (mGy) MEDICAL HISTORY : Cardiovascular disease. Carcinoma, breast. SURGICAL HISTORY : Appendectomy. Port Placement. ENCOUNTER: Subsequent ACUITY: 3 days PAIN SCALE: 0/10 LOCATION: Bilateral chest TECHNIQUE: Volumetric scanning of the chest was performed. Using automated exposure control and adjustment of t he mA and/or kV according to patient size, radiation dose was kept as low as reasonably achievable to obtain optimal diagnostic quality images. DICOM format image data is available electronically for r eview and comparison. FINDINGS: Comparison is made to multiple prior chest CTs dating back to August 26. Over the last month the overall extensive groundglass opacity especially in the upper lungs has decreased. There has been a fairly r apid progression to pulmonary fibrotic changes in the upper lungs. There are chronic changes of pulmonary fibrosis especially at the lung bases with some early honeycom david present at the bases. The disease also more peripheral than central. There is some traction bron chiectasis. Right central line is in the superior vena cava. There is no pleural or pericardial effusion. Elevate d right hemidiaphragm. No acute bony abnormalities. CONCLUSION: 1. Overall groundglass opacity has improved over the last month but with a fairly rapid progression t o pulmonary fibrosis in the peripheral upper lungs at a rate typically not seen with idiopathic pulmo nary fibrosis. They could still be some underlying idiopathic pulmonary fibrosis findings more charac teristic in the lower lobes with early honeycombing, traction bronchiectasis and minimal peripheral d istribution. The findings are not classic for usual interstitial pneumonitis and may require open rica g biopsy for diagnosis. Checo Conner MD on September 21, 2016 at 20:28 Board Certified Radiologist. This report was verified electronically.
[2016-09-21] MEDS ORDERED: predniSONE 10 MG TAB PO SCH (21:00)
[2016-09-22] VITALS (10 sets, daily range): BP systolic 124–149; BP diastolic 57–80; PULSE 100–116; RESP 16–22; TEMP 97.3–98.6; O2SAT 88–94
[2016-09-22] MEDS: RESP: ALBUTEROL 2.5 MG/IPRATROPIUM 0.5 MG NEB (PRN) NEB (04:56)
[2016-09-22] MEDS: INSULIN NovoLIN REGULAR SUPPLEMENTAL SCALE SQ SCH ×4 (06:08→21:39)
[2016-09-22] MEDS: DOCUSATE SODIUM 50 MG/SENNA 8.6 MG TAB PO SCH ×2 (09:00→21:00)
[2016-09-22] MEDS: POLYETHYLENE GLYCOL 17 GM PKG PO SCH (09:00)
[2016-09-22] MEDS: PANTOPRAZOLE SOD 20 MG DELAYED RELEASE TAB PO SCH (09:17)
[2016-09-22] MEDS: SULFAMETHOXAZOLE-TRIMETHOPRIM DS 800-160 MG TAB PO SCH ×2 (09:17→21:36)
[2016-09-22] MEDS: TOLTERODINE TARTRATE 2 MG CAP LA PO SCH (09:17)
[2016-09-22] MEDS: guaiFENesin E.R. 600 MG TAB PO SCH ×2 (09:17→21:36)
[2016-09-22] MEDS: ATORVASTATIN 80 MG TAB PO SCH (09:17)
[2016-09-22] MEDS: DULoxetine HCl DR 60 MG CAP PO SCH (09:17)
[2016-09-22] MEDS: predniSONE 20 MG TAB PO SCH ×2 (09:18→21:36)
[2016-09-22] MEDS: SODIUM CHLORIDE 0.9% FLUSH 10 ML FLUSH IV FLUSH SCH ×2 (09:19→21:37)
--- NOTE | 2016-09-22 10:35 | PD.ONC.PN ---
Subjective Subjective Remarks Afebrile overnight Patient working with physical therapy on approach Having significant shortness of breath with any activity Objective Data Date Time Temp Pulse Resp B/P Pulse Ox O2 Delivery O2 Flow Rate FiO2 09/22/16 08:00 97.5 114 20 141/80 89 09/22/16 07:50 90 Nasal Cannula 5.00 09/22/16 04:57 90 Nasal Cannula 5.00 09/22/16 04:40 97.4 107 16 149/72 88 09/21/16 23:50 97.5 100 24 128/64 92 09/21/16 20:00 Nasal Cannula 4.00 Humidified 09/21/16 19:46 122 09/21/16 19:30 98.2 111 24 130/63 91 09/21/16 18:06 95 Nasal Cannula 3.00 09/21/16 16:00 97.7 110 18 114/56 88 09/21/16 12:00 97.4 112 20 138/69 90 09/22/16 09/22/16 09/22/16 07:00 15:00 23:00 Intake Total 0 ml Output Total 100 ml 250 ml Balance -100 ml -250 ml Result Diagram: 09/19/16 1230 Imaging Studies Last [address] 09/21/16 0000 Signed Impressions: Service Date/Time: Wednesday, September 21, 2016 19:53 - CONCLUSION: 1. Overall groundglass opacity has improved over the last month but with a fairly rapid progression to pulmonary fibrosis in the peripheral upper lungs at a rate typically not seen with idiopathic pulmonary fibrosis. They could still be some underlying idiopathic pulmonary fibrosis findings more characteristic in the lower lobes with early honeycombing, traction bronchiectasis and minimal peripheral distribution. The findings are not classic for usual interstitial pneumonitis and may require open lung biopsy for diagnosis. Checo Conner MD Barium Swallow X-Ray 09/21/16 0000 Signed Impressions: Service Date/Time: Wednesday, September 21, 2016 10:48 - CONCLUSION: 1. Small sliding hiatal hernia at the GE junction. 2. No mechanical obstruction is demonstrated. Ha Guardado MD Administered Medications Medications (Trade) Dose Ordered Sig/Aurelia Route PRN Reason Start Time Stop Time Status Last Admin Dose Admin Guaifenesin (Mucinex Er) 600 mg BID PO 08/26/16 21:00 09/22/16 09:17 Sodium Chloride (NS Flush) 2 ml UNSCH PRN IV FLUSH FLUSH AFTER USING IV ACCESS 08/26/16 20:00 09/15/16 01:00 Sodium Chloride (NS Flush) 2 ml BID IV FLUSH 08/26/16 21:00 09/22/16 09:19 Ondansetron HCl (Zofran Inj) 4 mg Q6H PRN IVP NAUSEA OR VOMITING 08/26/16 20:00 09/19/16 22:08 Acetaminophen (Tylenol) 650 mg Q6H PRN PO FEVER/PAIN SCALE 1 TO 2 08/26/16 20:00 08/30/16 01:45 Senna/Docusate Sodium (Letty-Colace) 1 tab BID PO 08/26/16 21:00 09/20/16 08:41 Lactulose (Lactulose Liq) 30 ml DAILY PRN PO SEVERE CONSITIPATION 08/26/16 20:00 09/01/16 09:06 Duloxetine HCl (Cymbalta Dr) 60 mg DAILY PO 08/27/16 09:00 09/22/16 09:17 Atorvastatin Calcium (Lipitor) 80 mg DAILY PO 08/27/16 09:00 09/22/16 09:17 Tolterodine Tartrate (Detrol La) 2 mg DAILY PO 08/27/16 09:00 09/22/16 09:17 Pantoprazole Sodium (Protonix) 20 mg DAILY PO 08/29/16 11:45 09/22/16 09:17 Insulin Human Regular (NovoLIN R SUPPLEMENTAL SCALE) 1 ACHS SQ 09/01/16 16:00 09/21/16 21:11 Polyethylene Glycol (Miralax) 17 gm DAILY PO 09/02/16 09:00 09/20/16 08:41 Trimethoprim/ Sulfamethoxazole (Bactrim Ds 800-160 Mg) 1 tab BID PO 09/13/16 09:00 09/22/16 09:17 Enoxaparin Sodium (Lovenox Inj) 40 mg Q24H SQ 09/21/16 16:00 09/21/16 17:26 Prednisone (Deltasone) 20 mg BID PO 09/21/16 21:00 09/22/16 09:18 Objective Remarks GENERAL: Elderly female, chronically ill appearing, upright in bed, working with PT. SKIN: Warm and dry. HEAD: Normocephalic. EYES: No injection or drainage. NECK: Supple, trachea midline. CARDIOVASCULAR: + S1/S2. RESPIRATORY: Fine crackles to bilateral upper lobes. Rhonchi to lower lobes GASTROINTESTINAL: Abdomen soft, non-tender, nondistended. EXTREMITIES: No cyanosis, or edema. NEUROLOGICAL: No obvious focal deficit. Awake, alert, and oriented x3. Assessment/Plan Problem List: (1) Hypoxia Status: Acute Plan: 09/22: Patient still with significant shortness of breath with activity. O2 sats drop to 79% with minimal activity. Continue steroids per pulmonology. --ECHO = no decrease LVEF --pulmonary toxicity either due to Herceptin or Taxol --dr. Hammond, pulmonology following -- CT on 09/21 shows overall improvement of groundglass opacity (2) Breast CA Status: Acute Plan: no further chemo. --started on weekly Herceptin and Taxol chemotherapy on July 15. Assessment 76y/o with triple positive left breast cancer admitted with respiratory insufficiency. Attending Statement HURLEY and weakness continue steroid ON O2 4 liters Giana Smiley Sep 22, 2016 10:35 Tiburcio Krik MD Sep 22, 2016 18:52
--- NOTE | 2016-09-22 16:17 | HHI.GIFU ---
Subjective Remarks Pt resting in bed, at bedside. Has trouble swallowing solids but ok with liquid. No pain, feels like food gets stuck. Objective Vitals I&O Vital Signs Date Time Temp Pulse Resp B/P Pulse Ox O2 Delivery O2 Flow Rate FiO2 09/22/16 12:00 98.6 116 20 124/61 93 09/22/16 09:20 89 Nasal Cannula 5.00 Humidified 09/22/16 08:17 107 09/22/16 08:00 97.5 114 20 141/80 89 09/22/16 07:50 90 Nasal Cannula 5.00 09/22/16 04:57 90 Nasal Cannula 5.00 09/22/16 04:40 97.4 107 16 149/72 88 09/21/16 23:50 97.5 100 24 128/64 92 09/21/16 20:00 Nasal Cannula 4.00 Humidified 09/21/16 19:46 122 09/21/16 19:30 98.2 111 24 130/63 91 09/21/16 18:06 95 Nasal Cannula 3.00 I/O 09/21/16 09/21/16 09/21/16 09/22/16 09/22/16 09/22/16 06:59 14:59 22:59 06:59 14:59 22:59 Intake Total 240 ml 480 ml 0 ml 840 ml Output Total 400 ml 400 ml 100 ml 730 ml Balance -160 ml 80 ml -100 ml 110 ml Intake Oral 240 ml 480 ml 0 ml 840 ml Output Urine Total 400 ml 400 ml 100 ml 730 ml # Voids 2 0 # Bowel Movements 0 0 0 0 Imaging Last Impressions Chest CT 09/21/16 0000 Signed Impressions: Service Date/Time: Wednesday, September 21, 2016 19:53 - CONCLUSION: 1. Overall groundglass opacity has improved over the last month but with a fairly rapid progression to pulmonary fibrosis in the peripheral upper lungs at a rate typically not seen with idiopathic pulmonary fibrosis. They could still be some underlying idiopathic pulmonary fibrosis findings more characteristic in the lower lobes with early honeycombing, traction bronchiectasis and minimal peripheral distribution. The findings are not classic for usual interstitial pneumonitis and may require open lung biopsy for diagnosis. Checo Conner MD Barium Swallow X-Ray 09/21/16 0000 Signed Impressions: Service Date/Time: Wednesday, September 21, 2016 10:48 - CONCLUSION: 1. Small sliding hiatal hernia at the GE junction. 2. No mechanical obstruction is demonstrated. Ha Guardado MD Chest X-Ray 09/12/16 0000 Signed Impressions: Service Date/Time: Monday, September 12, 2016 10:22 - CONCLUSION: Stable chest x-ray with peripheral and lower lung zone predominant interstitial opacities bilaterally. Romel Haas MD Lung Scan-[facility] Nuclear Medicine 08/26/16 Signed Impressions: Service Date/Time: Friday, August 26, 2016 20:26 - CONCLUSION: 1. Low probability for pulmonary embolus. Checo Conner MD CT Angiography 08/26/16 0000 Signed Impressions: Service Date/Time: Friday, August 26, 2016 16:50 - CONCLUSION: 1. Negative for pulmonary embolus. Pulmonary fibrosis as above, not easily classifiable. There is also extensive groundglass opacity with lobular sparing. Differential diagnosis includes sequela of drug reaction or subacute hypersensitivity pneumonitis, atypical usual interstitial pneumonitis, or other causes of alveolitis. Checo Conner MD Physical Exam HEENT: PERRL; normocephalic; atraumatic; no jaundice. CHEST: CTA CARDIAC: RRR ABDOMEN: Soft, nondistended, nontender; no hepatosplenomegaly; bowel sounds are present in all four quadrants. EXTREMITIES: No clubbing, cyanosis, or edema. SKIN: Normal; no rash; no jaundice. PROCESS CONTROL OPERATOR: No focal deficits; alert and oriented times three. Assessment and Plan Plan Impression: -Dysphagia, mild. 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
--- NOTE | 2016-09-22 16:21 | HHI.PR ---
Subjective Remarks Follow-up for respiratory failure Patient stated that she still does not feel well. She stated that she feels very weak. Breathing has been stable though. She stated that she has shortness of breathing or exertion that she desats with exertion. Patient is on 5 L of nasal cannula but will desats in the lower 80s with minimal exertion. Otherwise she remains afebrile. Objective Vitals Vital Signs Date Time Temp Pulse Resp B/P Pulse Ox O2 Delivery O2 Flow Rate FiO2 09/22/16 12:00 98.6 116 20 124/61 93 09/22/16 09:20 89 Nasal Cannula 5.00 Humidified 09/22/16 08:17 107 09/22/16 08:00 97.5 114 20 141/80 89 09/22/16 07:50 90 Nasal Cannula 5.00 09/22/16 04:57 90 Nasal Cannula 5.00 09/22/16 04:40 97.4 107 16 149/72 88 09/21/16 23:50 97.5 100 24 128/64 92 09/21/16 20:00 Nasal Cannula 4.00 Humidified 09/21/16 19:46 122 09/21/16 19:30 98.2 111 24 130/63 91 09/21/16 18:06 95 Nasal Cannula 3.00 I/O 09/21/16 09/21/16 09/21/16 09/22/16 09/22/16 09/22/16 07:00 15:00 23:00 07:00 15:00 23:00 Intake Total 240 ml 480 ml 0 ml 840 ml Output Total 400 ml 400 ml 100 ml 730 ml Balance -160 ml 80 ml -100 ml 110 ml Intake Oral 240 ml 480 ml 0 ml 840 ml Output Urine Total 400 ml 400 ml 100 ml 730 ml # Voids 2 0 # Bowel Movements 0 0 0 0 Result Diagram: 09/19/16 1230 Objective Remarks GENERAL: In no acute distress but looks chronically ill. CARDIOVASCULAR: Regular rate and rhythm without murmurs, gallops, or rubs. RESPIRATORY: Bilateral diffuse crackles. No accessory muscle use. GASTROINTESTINAL: Abdomen soft, non-tender, nondistended. MUSCULOSKELETAL: No cyanosis, or edema. BACK: Nontender without obvious deformity. No CVA tenderness. Medications and IVs Current Medications Iohexol 99 ml 99 ml STK-MED ONCE IV Last administered on 08/26/16 19:12; Start 08/26/16 at 19:12; Stop 08/26/16 at 19:13; Status DC Levofloxacin/ Dextrose (Levaquin 500 Mg Premix Inj) 100 ml @ 100 mls/hr ONCE ONCE IV Last administered on 08/26/16 19:22; Start 08/26/16 at 19:15; Stop at 20:14; Status DC Albuterol/ Ipratropium (Duoneb Neb) 1 ampule Q4HR NEB PRN NEB SOB/WHEEZING Last administered on 08/28/16 11:58; Start 08/26/16 at 20:00; Stop 08/28/16 at 12:35; Status DC Budesonide/ Formoterol Fumarate (Symbicort 160-4.5 Inh) 2 puff Q12HR INH Last administered on 08/29/16 09:12; Start 08/26/16 at 21:00; Stop 08/29/16 at 11:48 ; Status DC Guaifenesin 600 mg 600 mg BID PO Last administered on 09/22/16 09:17; Start 08/26/16 at 21:00 Sodium Chloride (NS 1000 ml Inj) 1,000 ml @ 100 mls/hr Q10H IV Last administered on 08/27/16 05:03; Start 08/26/16 at 19:49; Stop 08/27/16 at 14:50 ; Status DC Sodium Chloride (NS Flush) 2 ml UNSCH PRN IV FLUSH FLUSH AFTER USING IV ACCESS Last administered on 09/15/16 01:00; Start 08/26/16 at 20:00 Sodium Chloride (NS Flush) 2 ml BID IV FLUSH Last administered on 09/22/16 09: 19; Start 08/26/16 at 21:00 Ondansetron HCl (Zofran Inj) 4 mg Q6H PRN IVP NAUSEA OR VOMITING Last administered on 09/19/16 22:08; Start 08/26/16 at 20:00 Heparin Sodium (Porcine) (Heparin Inj) 5,000 units Q8H SQ Last administered on 09/16/16 12:57; Start 08/26/16 at 20:00; Stop 09/16/16 at 16:28; Status DC Acetaminophen (Tylenol) 650 mg Q6H PRN PO FEVER/PAIN SCALE 1 TO 2 Last administered on 08/30/16 01:45; Start 08/26/16 at 20:00 Acetaminophen/ Hydrocodone Bitart ([place] 5-325 Mg) 1 tab Q4H PRN PO PAIN SCALE 3 TO 5; Start 08/26/16 at 20:00 Morphine Sulfate (Morphine Inj) 2 mg Q3H PRN IV Pain 6-10; Start 08/26/16 at 20: 00 Senna/Docusate Sodium (Letty-Colace) 1 tab BID PO Last administered on 09/20/16 08:41; Start 08/26/16 at 21:00 Magnesium Hydroxide (Milk Of Magnesia Liq) 30 ml Q12H PRN PO MILD - MODERATE CONSTIPATION; Start 08/26/16 at 20:00 Sennosides (Senokot) 17.2 mg Q12H PRN PO MODERATE - SEVERE CONSTIPATION; Start 08/26/16 at 20:00 Bisacodyl (Dulcolax Supp) 10 mg DAILY PRN RECTAL SEVERE CONSITIPATION; Start at 20:00 Lactulose 30 ml 30 ml DAILY PRN PO SEVERE CONSITIPATION Last administered on 09:06; Start 08/26/16 at 20:00 Levofloxacin/ Dextrose (Levaquin 750 Mg Premix Inj) 150 ml @ 100 mls/hr Q24H IV Last administered on 09/05/16 21:13; Start 08/27/16 at 21:00; Stop at 17:38; Status DC Duloxetine HCl (Cymbalta Dr) 60 mg DAILY PO Last administered on 09/22/16 09:17 ; Start 08/27/16 at 09:00 Atorvastatin Calcium (Lipitor) 80 mg DAILY PO Last administered on 09/22/16 09: 17; Start 08/27/16 at 09:00 Tolterodine Tartrate (Detrol La) 2 mg DAILY PO Last administered on 09/22/16 09 :17; Start 08/27/16 at 09:00 Furosemide (Lasix Inj) 40 mg STAT ONCE IV PUSH Last administered on 08/28/16 10:34; Start 08/28/16 at 10:30; Stop 08/28/16 at 10:31; Status DC Enalaprilat (Vasotec Inj) 1.25 mg Q6H PRN IV SBP> OR = 180, DBP> OR = 100; Start 08/28/16 at 10:30 Albuterol/ Ipratropium (Duoneb Neb) 1 ampule Q4HR NEB NEB Last administered on 08/29/16 10:56; Start 08/28/16 at 16:00; Stop 08/29/16 at 11:48; Status DC Albuterol/ Ipratropium (Duoneb Neb) 1 ampule Q2HR NEB PRN NEB SHORTNESS OF BREATH Last administered on 09/22/16 04:56; Start 08/28/16 at 12:30 Methylprednisolone Sodium Succinate (SoluMEDROL INJ) 60 mg Q6HR IV PUSH Last administered on 08/28/16 12:43; Start 08/28/16 at 12:30; Stop 08/28/16 at 16:28 ; Status DC Dextrose (D50w (Vial) Inj) 50 ml UNSCH PRN IV HYPOGLYCEMIA-SEE COMMENTS; Start 08/28/16 at 12:30 Glucagon (Glucagon Inj) 1 mg UNSCH PRN OTHER HYPOGLYCEMIA-SEE COMMENTS; Start 08/28/16 at 12:30 Insulin Human Regular (NovoLIN R SUPPLEMENTAL SCALE) 1 Q6HR SQ Last administered on 09/01/16 11:58; Start 08/28/16 at 12:30; Stop 09/01/16 at 13:05 ; Status DC Methylprednisolone Sodium Succinate 40 mg 40 mg Q8HR IV Last administered on 05:14; Start 08/28/16 at 22:00; Stop 08/29/16 at 11:48; Status DC Potassium Chloride 100 ml @ 50 mls/hr Q2H PRN IV For Potassium 2.8 - 3.2 mEq/L ; Start 08/28/16 at 16:30; Stop 09/07/16 at 09:04; Status DC Potassium Chloride (KCl 20 Meq Premix Inj) 100 ml @ 50 mls/hr Q2H PRN IV For Potassium 2.8 - 3.2 mEq/L; Start 08/28/16 at 16:30; Stop 09/07/16 at 09:04; Status DC Potassium Bicarb/ Potassium Chloride 50 meq 50 meq UNSCH PRN PO For Potassium 3.3 - 3.5 mEq/L; Start 08/28/16 at 16:30; Stop 09/07/16 at 09:04; Status DC Potassium Chloride 100 ml @ 25 mls/hr UNSCH PRN IV For Potassium 3.3 - 3.5 mEq /L; Start 08/28/16 at 16:30; Stop 09/07/16 at 09:04; Status DC Potassium Chloride 100 ml @ 50 mls/hr Q2H PRN IV For Potassium 3.3 - 3.5 mEq/L ; Start 08/28/16 at 16:30; Stop 09/07/16 at 09:04; Status DC Magnesium Sulfate/ Sodium Chloride (Magnesium Sulfate Inj/NS Inj) 100 ml @ 50 mls/hr UNSCH PRN IV For Magnesium 0.9 - 1.1 mg/dL; Start 08/28/16 at 16:30; Stop 09/07/16 at 09:05; Status DC Magnesium Oxide 800 mg 800 mg UNSCH PRN PO For Magnesium 1.2 - 1.6 mg/dL; Start 08/28/16 at 16:30; Stop 09/07/16 at 09:05; Status DC Magnesium Sulfate/ Sodium Chloride (Magnesium Sulfate Inj/NS Inj) 100 ml @ 50 mls/hr UNSCH PRN IV For Magnesium 1.2 - 1.6 mg/dL; Start 08/28/16 at 16:30; Stop 09/07/16 at 09:05; Status DC Potassium Phosphate 2000 mg 2,000 mg Q4H PRN PO For Phosphorus < 2.5 mg/dL Last administered on 09/06/16t 14:29; Start 08/28/16 at 16:30; Stop 09/07/16 at 09:06; Status DC Sodium Phosphate/ Sodium Chloride (Sodium Phosphate Inj/NS 250 ml Inj) 250 ml @ 42 mls/hr UNSCH PRN IV For Phosphorus < 2.5 mg/dL; Start 08/28/16 at 16:30; Stop 09/07/16 at 09:06; Status DC Potassium Phosphate 2000 mg 2,000 mg UNSCH PRN PO/TUBE SEE LABEL COMMENTS; Start 08/28/16 at 16:30; Stop 09/07/16 at 09:06; Status DC Potassium Phosphate/Sodium Chloride (Potassium Phosphate Inj/NS 250 ml Inj) 260 ml @ 42 mls/hr UNSCH PRN IV SEE LABEL COMMENTS; Start 08/28/16 at 16:30; Stop 09/07/16 at 09:06; Status DC Miscellaneous Information Patient in critical care unit? Ass... [id number] .XX ; Start 08/28/16 at 19:30 Chlorhexidine Gluconate (Chlorhexidine 2% Cloth) 3 pack DAILY@04 TOPICAL Last administered on 09/02/16 04:00; Start 08/29/16 at 04:00; Stop 09/02/16 at 04:01 ; Status DC Chlorhexidine Gluconate (Chlorhexidine 2% Cloth) 3 pack UNSCH PRN TOPICAL HYGIENIC CARE; Start 08/28/16 at 19:30; Stop 09/02/16 at 19:28; Status DC Albuterol/ Ipratropium (Duoneb Neb) 1 ampule TID NEB NEB Last administered on 09/05/16 07:58; Start 08/29/16 at 14:00; Stop 09/05/16 at 12:37; Status DC Methylprednisolone Sodium Succinate (SoluMEDROL INJ) 60 mg Q8HR IV Last administered on 09/06/16 14:28; Start 08/29/16 at 14:00; Stop 09/06/16 at 17:38 ; Status DC Pantoprazole Sodium (Protonix) 20 mg DAILY PO Last administered on 09/22/16 09: 17; Start 08/29/16 at 11:45 Insulin Human Regular (NovoLIN R SUPPLEMENTAL SCALE) 1 ACHS SQ Last administered on 09/22/16 11:57; Start 09/01/16 at 16:00 Polyethylene Glycol (Miralax) 17 gm DAILY PO Last administered on 09/20/16 08: 41; Start 09/02/16 at 09:00 Polyethylene Glycol (Miralax) 17 gm ONCE ONCE PO ; Start 09/01/16 at 13:15; Stop 09/01/16 at 13:16; Status DC Potassium Chloride (KCl) 20 meq ONCE ONCE PO Last administered on 09/03/16 14 :10; Start 09/03/16 at 13:00; Stop 09/03/16 at 13:04; Status DC Furosemide (Lasix Inj) 40 mg ONCE ONCE IV PUSH Last administered on 09/05/16 11:07; Start 09/05/16 at 11:00; Stop 09/05/16 at 11:02; Status DC Furosemide (Lasix Inj) 20 mg BID@,18 IV PUSH ; Start 09/06/16 at 09:00; Stop 09/06/16 at 09:00; Status DC Albuterol/ Ipratropium (Duoneb Neb) 1 ampule BID NEB NEB Last administered on 09/08/16 08:08; Start 09/05/16 at 20:00; Stop 09/08/16 at 12:15; Status DC Furosemide (Lasix Inj) 20 mg DAILY IV PUSH Last administered on 09/08/16 09:23 ; Start 09/06/16 at 09:00; Stop 09/08/16 at 12:15; Status DC Trimethoprim/ Sulfamethoxazole (Bactrim Ds 800-160 Mg) 1 tab Q24H PO Last administered on 09/12/16 13:33; Start 09/05/16 at 13:00; Stop 09/13/16 at 08:38 ; Status DC Methylprednisolone Sodium Succinate (SoluMEDROL INJ) 60 mg Q12H IV Last administered on 09/07/16 02:14; Start 09/07/16 at 02:00; Stop 09/07/16 at 12:57 ; Status DC Methylprednisolone Sodium Succinate (SoluMEDROL INJ) 40 mg Q12H IV Last administered on 09/08/16 03:05; Start 09/07/16 at 14:00; Stop 09/08/16 at 12:15 ; Status DC Prednisone (Deltasone) 30 mg BID PO Last administered on 09/12/16 08:54; Start 09/08/16 at 13:00; Stop 09/12/16 at 13:02; Status DC Albuterol/ Ipratropium (Duoneb Neb) 1 ampule BID NEB NEB Last administered on 09/18/16 10:29; Start 09/10/16 at 20:00; Stop 09/18/16 at 13:08; Status DC Methylprednisolone Sodium Succinate (SoluMEDROL INJ) 60 mg Q12HR IV PUSH Last administered on 09/13/16 08:26; Start 09/12/16 at 14:00; Stop 09/13/16 at 08:38 ; Status DC Methylprednisolone Sodium Succinate (SoluMEDROL INJ) 60 mg Q8H IV PUSH Last administered on 09/16/16 09:04; Start 09/13/16 at 16:00; Stop 09/16/16 at 11:14 ; Status DC Trimethoprim/ Sulfamethoxazole (Bactrim Ds 800-160 Mg) 1 tab BID PO Last administered on 09/22/16 09:17; Start 09/13/16 at 09:00 Methylprednisolone Sodium Succinate (SoluMEDROL INJ) 60 mg Q12HR IV PUSH Last administered on 09/19/16 08:58; Start 09/16/16 at 21:00; Stop 09/19/16 at 11:08; Status DC Enoxaparin Sodium (Lovenox Inj) 40 mg Q24H SQ Last administered on 09/19/16 18: 27; Start 09/17/16 at 18:00; Stop 09/21/16 at 15:54; Status DC Prednisone (Deltasone) 40 mg BID PO Last administered on 09/21/16 11:19; Start 09/19/16 at 21:00; Stop 09/21/16 at 15:13; Status DC Enoxaparin Sodium (Lovenox Inj) 40 mg Q24H SQ Last administered on 09/22/16 16: 36; Start 09/21/16 at 16:00 Prednisone (Deltasone) 30 mg BID PO ; Start 09/21/16 at 21:00; Stop 09/21/16 at 21 :00; Status DC Prednisone (Deltasone) 20 mg BID PO Last administered on 09/22/16 09:18; Start 09/21/16 at 21:00 Date of Removal: Sep 04, 2016 A/P Problem List: (1) Hypoxia ICD Code: R09.02 Status: Acute (2) Bandemia ICD Code: D72.825 Status: Acute (3) Dehydration ICD Code: E86.0 Status: Resolved (4) Breast CA ICD Code: C50.919 Status: Acute (5) HTN (hypertension) ICD Code: I10 Status: Acute (6) Acute respiratory failure ICD Code: J96.00 Status: Resolved Assessment and Plan 76 years old female admitted for Acute hypoxemic respiratory failure- on 6LNC Extensive ground-glass opacities. Ddx: hypersensitivity pneumonitis vs chemotherapy induced pulmonary toxicity/interstitial pneumonitis versus other causes of valvulitis -Repeat CT scan showing resolution of the pneumonitis but now showing interstitial fibrosis. -continue to adjust NC -Duo nebs 3 times a day and as needed dyspnea -Currently on prednisone 20 mg by mouth twice a day. -Followed by pulmonology- on Bactrim bid -Dr. barrientos ff closely along with us Triple positive left breast cancer status post Herceptin scan and Taxol 07/15 weekly chemotherapy Normocytic anemia Leukocytosis Monitor CBC daily. Follow trends Bactrim bid - - 09/13 per Pulmonary Leukocytosis- on steroids Dyphagia- Poor po appetite - -EGD cancelled due to low 02 saturation- may not tolerate anesthesia -on PPIGI: - speech therapy consult for swallowing evaluation on PPI Letty-Colace twice a day bowel regimen with MiraLAX daily Dyslipidemia Stage I diastolic dysfunction currently on Lipitor 80 mg by mouth at bedtime for dyslipidemia 2-D echo revealed EF 55%. Stage I diastolic dysfunction. Mild MR. Depression Continue Cymbalta 60 mg by mouth daily for depression Continue Hartfield for pain management good family support Dyslipidemia Stage I diastolic dysfunction currently on Lipitor 80 mg by mouth at bedtime for dyslipidemia 2-D echo revealed EF 55%. Stage I diastolic dysfunction. Mild MR. Urinary Incontinence- improved -Continue Detrol LA 2 mg by mouth daily Hyper-magnesium -Replace electrolytes as clinically indicated Decondition -PT consulted and working with patient Prophylaxis - GI - Protonix - DVT - SCD/Lovenox- restart- EGD cancelled Discharge Planning Patient is requiring high flow oxygen at 5 L and desats with exertion. Due to increased requirement unable to discharge at the moment. Priscilla Rich MD Sep 22, 2016 16:21
[2016-09-22] MEDS: ENOXAPARIN SODIUM 40 MG/0.4 ML SYRINGE SQ SCH (16:36)
[2016-09-23] VITALS (9 sets, daily range): BP systolic 127–148; BP diastolic 61–79; PULSE 91–111; RESP 20–33; TEMP 97.4–99.1; O2SAT 91–100
[2016-09-23] MEDS: INSULIN NovoLIN REGULAR SUPPLEMENTAL SCALE SQ SCH ×4 (06:17→21:40)
[2016-09-23] MEDS: POLYETHYLENE GLYCOL 17 GM PKG PO SCH (09:00)
[2016-09-23] MEDS: DOCUSATE SODIUM 50 MG/SENNA 8.6 MG TAB PO SCH ×2 (09:00→21:00)
[2016-09-23] MEDS: ATORVASTATIN 80 MG TAB PO SCH (09:12)
[2016-09-23] MEDS: PANTOPRAZOLE SOD 20 MG DELAYED RELEASE TAB PO SCH (09:12)
[2016-09-23] MEDS: guaiFENesin E.R. 600 MG TAB PO SCH ×2 (09:12→21:39)
[2016-09-23] MEDS: SULFAMETHOXAZOLE-TRIMETHOPRIM DS 800-160 MG TAB PO SCH ×2 (09:12→21:38)
[2016-09-23] MEDS: DULoxetine HCl DR 60 MG CAP PO SCH (09:12)
[2016-09-23] MEDS: TOLTERODINE TARTRATE 2 MG CAP LA PO SCH (09:12)
[2016-09-23] MEDS: predniSONE 20 MG TAB PO SCH ×2 (09:12→21:39)
[2016-09-23] MEDS: SODIUM CHLORIDE 0.9% FLUSH 10 ML FLUSH IV FLUSH SCH ×2 (09:13→21:39)
--- NOTE | 2016-09-23 11:37 | PD.ONC.PN ---
Subjective Subjective Remarks Afebrile overnight. Earlier today when patient got up to use bedside commode, became severely hypoxic. However pulse-ox improved quickly once patient in bed again. Patient resting in bed in nad. Objective Data Date Time Temp Pulse Resp B/P Pulse Ox O2 Delivery O2 Flow Rate FiO2 09/23/16 10:43 97 Nasal Cannula 4.50 09/23/16 08:00 97.6 104 22 148/79 92 09/23/16 04:00 97.6 91 20 135/72 94 09/23/16 00:00 98.0 101 24 137/70 100 09/22/16 20:34 92 Nasal Cannula 4.00 09/22/16 20:15 Nasal Cannula 5.00 Humidified 09/22/16 20:05 97.8 101 20 130/57 94 09/22/16 19:50 100 09/22/16 16:00 97.3 102 22 131/69 93 09/22/16 12:00 98.6 116 20 124/61 93 09/23/16 09/23/16 09/23/16 07:00 15:00 23:00 Intake Total 120 ml Balance 120 ml Result Diagram: 09/19/16 1230 Administered Medications Medications (Trade) Dose Ordered Sig/Aurelia Route PRN Reason Start Time Stop Time Status Last Admin Dose Admin Guaifenesin (Mucinex Er) 600 mg BID PO 08/26/16 21:00 09/23/16 09:12 Sodium Chloride (NS Flush) 2 ml UNSCH PRN IV FLUSH FLUSH AFTER USING IV ACCESS 08/26/16 20:00 09/15/16 01:00 Sodium Chloride (NS Flush) 2 ml BID IV FLUSH 08/26/16 21:00 09/23/16 09:13 Ondansetron HCl (Zofran Inj) 4 mg Q6H PRN IVP NAUSEA OR VOMITING 08/26/16 20:00 09/19/16 22:08 Acetaminophen (Tylenol) 650 mg Q6H PRN PO FEVER/PAIN SCALE 1 TO 2 08/26/16 20:00 08/30/16 01:45 Senna/Docusate Sodium (Letty-Colace) 1 tab BID PO 08/26/16 21:00 09/20/16 08:41 Lactulose (Lactulose Liq) 30 ml DAILY PRN PO SEVERE CONSITIPATION 08/26/16 20:00 09/01/16 09:06 Duloxetine HCl (Cymbalta Dr) 60 mg DAILY PO 08/27/16 09:00 09/23/16 09:12 Atorvastatin Calcium (Lipitor) 80 mg DAILY PO 08/27/16 09:00 09/23/16 09:12 Tolterodine Tartrate (Detrol La) 2 mg DAILY PO 08/27/16 09:00 09/23/16 09:12 Pantoprazole Sodium (Protonix) 20 mg DAILY PO 08/29/16 11:45 09/23/16 09:12 Insulin Human Regular (NovoLIN R SUPPLEMENTAL SCALE) 1 ACHS SQ 09/01/16 16:00 09/22/16 21:39 Polyethylene Glycol (Miralax) 17 gm DAILY PO 09/02/16 09:00 09/20/16 08:41 Trimethoprim/ Sulfamethoxazole (Bactrim Ds 800-160 Mg) 1 tab BID PO 09/13/16 09:00 09/23/16 09:12 Enoxaparin Sodium (Lovenox Inj) 40 mg Q24H SQ 09/21/16 16:00 09/22/16 16:36 Prednisone (Deltasone) 20 mg BID PO 09/21/16 21:00 09/23/16 09:12 Objective Remarks GENERAL: Elderly female upright in bed in nad. SKIN: Warm and dry. HEAD: Normocephalic. EYES: No scleral icterus. No injection or drainage. NECK: Supple, trachea midline. CARDIOVASCULAR: Regular rate and rhythm RESPIRATORY: diminished at bases, scattered rhonchi. On 5L O2 via NC GASTROINTESTINAL: Abdomen soft, non-tender, nondistended. EXTREMITIES: No cyanosis NEUROLOGICAL: No obvious focal deficit. Awake, alert, and oriented x3. Assessment/Plan Problem List: (1) Hypoxia Status: Acute Plan: 09/23: monitor saturations. continue steroids per pulmonology --ECHO = no decrease LVEF --pulmonary toxicity either due to Herceptin or Taxol --dr. Hammond, pulmonology following -- CT on 09/21 shows overall improvement of groundglass opacity (2) Breast CA Status: Acute Plan: no further chemo. --started on weekly Herceptin and Taxol chemotherapy on July 15. Assessment 76y/o with triple positive left breast cancer admitted with respiratory insufficiency. Attending Statement SOB and HURLEY, weakness, Dysphagia with heart burn CT Chest findings noted. Pulmonary to follow. Josey Gandara Sep 23, 2016 11:37 Tiburcio Kirk MD Sep 23, 2016 12:35
--- NOTE | 2016-09-23 11:43 | HHI.GIFU ---
Subjective Remarks Resting in bed. States she is tolerating liquid diet and does okay with solids as long as she keeps things moist with sips of water. States she can even tolerate crackers as long as she takes a sip of water afterwards. Objective Vitals I&O Vital Signs Date Time Temp Pulse Resp B/P Pulse Ox O2 Delivery O2 Flow Rate FiO2 09/23/16 10:43 97 Nasal Cannula 4.50 09/23/16 08:00 97.6 104 22 148/79 92 09/23/16 04:00 97.6 91 20 135/72 94 09/23/16 00:00 98.0 101 24 137/70 100 09/22/16 20:34 92 Nasal Cannula 4.00 09/22/16 20:15 Nasal Cannula 5.00 Humidified 09/22/16 20:05 97.8 101 20 130/57 94 09/22/16 19:50 100 09/22/16 16:00 97.3 102 22 131/69 93 09/22/16 12:00 98.6 116 20 124/61 93 I/O 09/22/16 09/22/16 09/22/16 09/23/16 09/23/16 09/23/16 07:00 15:00 23:00 07:00 15:00 23:00 Intake Total 0 ml 840 ml 320 ml 120 ml Output Total 100 ml 730 ml 360 ml Balance -100 ml 110 ml -40 ml 120 ml Intake Oral 0 ml 840 ml 320 ml 120 ml Output Urine Total 100 ml 730 ml 360 ml # Voids 0 0 # Bowel Movements 0 0 0 0 Imaging Last Impressions Chest CT 09/21/16 0000 Signed Impressions: Service Date/Time: Wednesday, September 21, 2016 19:53 - CONCLUSION: 1. Overall groundglass opacity has improved over the last month but with a fairly rapid progression to pulmonary fibrosis in the peripheral upper lungs at a rate typically not seen with idiopathic pulmonary fibrosis. They could still be some underlying idiopathic pulmonary fibrosis findings more characteristic in the lower lobes with early honeycombing, traction bronchiectasis and minimal peripheral distribution. The findings are not classic for usual interstitial pneumonitis and may require open lung biopsy for diagnosis. Checo Conner MD Barium Swallow X-Ray 09/21/16 0000 Signed Impressions: Service Date/Time: Wednesday, September 21, 2016 10:48 - CONCLUSION: 1. Small sliding hiatal hernia at the GE junction. 2. No mechanical obstruction is demonstrated. Ha Guardado MD Chest X-Ray 09/12/16 0000 Signed Impressions: Service Date/Time: Monday, September 12, 2016 10:22 - CONCLUSION: Stable chest x-ray with peripheral and lower lung zone predominant interstitial opacities bilaterally. Romel Haas MD Lung Scan-VQ Nuclear Medicine 08/26/16 0000 Signed Impressions: Service Date/Time: Friday, August 26, 2016 20:26 - CONCLUSION: 1. Low probability for pulmonary embolus. Checo Conner MD CT Angiography 08/26/16 0000 Signed Impressions: Service Date/Time: Friday, August 26, 2016 16:50 - CONCLUSION: 1. Negative for pulmonary embolus. Pulmonary fibrosis as above, not easily classifiable. There is also extensive groundglass opacity with lobular sparing. Differential diagnosis includes sequela of drug reaction or subacute hypersensitivity pneumonitis, atypical usual interstitial pneumonitis, or other causes of alveolitis. Checo Conner MD Physical Exam HEENT: PERRL; normocephalic; atraumatic; no jaundice. CHEST: Resp. shallow/mildly labored, diminished, O2 4.5L via n/c CARDIAC: RRR ABDOMEN: Soft, nondistended, nontender; no hepatosplenomegaly; bowel sounds are present in all four quadrants. EXTREMITIES: No clubbing, cyanosis, or edema. SKIN: Normal; no rash; no jaundice. 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 Assessment and Plan Plan Impression: - Dysphagia, mild. S/P Barium Swallow (09/21/16)------> 1. Small sliding hiatal hernia at the GE junction. 2. No mechanical obstruction is demonstrated. Tolerating liquids, states she can even eat crackers as long as she takes sips of water afterwards. PPI. Will advance diet and instructed pt to take frequent sips of water. - GERD. PPI. Improved. - Hypoxia/Interstitial lung disease, secondary to chemotherapy. CT Angiography (08/26/16)----> 1. Negative for pulmonary embolus. Pulmonary fibrosis as above, not easily classifiable. There is also extensive groundglass opacity with lobular sparing. Differential diagnosis includes sequela of drug reaction or subacute hypersensitivity pneumonitis, atypical usual interstitial pneumonitis, or other causes of alveolitis. Chest CT (09/21/16)----> 1. Overall groundglass opacity has improved over the last month but with a fairly rapid progression to pulmonary fibrosis in the peripheral upper lungs at a rate typically not seen with idiopathic pulmonary fibrosis. They could still be some underlying idiopathic pulmonary fibrosis findings more characteristic in the lower lobes with early honeycombing, traction bronchiectasis and minimal peripheral distribution. The findings are not classic for usual interstitial pneumonitis and may require open lung biopsy for diagnosis. Prednisone, Nebs, Mucinex, Bactrim. Pulmonary following. - Breast cancer triple positive. Started weekly Herceptin and Taxol on July 15. Oncology following. - Leukoctyosis, Bandemia. Bactrim. - Dehydration, HTN per attending. Plan: - Soft diet as tolerating- sips of water after dry foods, try to order moister foods- d/w patient - Cont. PPI, but increase to 40mg po daily - Supportive care - Unable to have endoscopic evaluation secondary to hypoxia - Further recommendations to follow based on results of above - This patient is seen by Dr. Vang and myself and this note is written on his behalf Keyona Rene Sep 23, 2016 11:43
--- NOTE | 2016-09-23 12:20 | HHI.PR ---
Subjective Remarks Follow-up for respiratory failure Patient went up to the commode and desat into the 60s. She stated with any movement she feels very short of breath. Patient has no other complaints. Objective Vitals Vital Signs Date Time Temp Pulse Resp B/P Pulse Ox O2 Delivery O2 Flow Rate FiO2 09/23/16 10:43 97 Nasal Cannula 4.50 09/23/16 08:00 97.6 104 22 148/79 92 09/23/16 04:00 97.6 91 20 135/72 94 09/23/16 00:00 98.0 101 24 137/70 100 09/22/16 20:34 92 Nasal Cannula 4.00 09/22/16 20:15 Nasal Cannula 5.00 Humidified 09/22/16 20:05 97.8 101 20 130/57 94 09/22/16 19:50 100 09/22/16 16:00 97.3 102 22 131/69 93 I/O 09/22/16 09/22/16 09/22/16 09/23/16 09/23/16 09/23/16 06:59 14:59 22:59 06:59 14:59 22:59 Intake Total 0 ml 840 ml 320 ml 120 ml Output Total 100 ml 730 ml 360 ml Balance -100 ml 110 ml -40 ml 120 ml Intake Oral 0 ml 840 ml 320 ml 120 ml Output Urine Total 100 ml 730 ml 360 ml # Voids 0 0 # Bowel Movements 0 0 0 0 Result Diagram: 09/19/16 1230 Objective Remarks GENERAL: In no acute distress but looks chronically ill. CARDIOVASCULAR: Regular rate and rhythm without murmurs, gallops, or rubs. RESPIRATORY: Bilateral diffuse crackles. No accessory muscle use. GASTROINTESTINAL: Abdomen soft, non-tender, nondistended. MUSCULOSKELETAL: No cyanosis, or edema. BACK: Nontender without obvious deformity. No CVA tenderness. Medications and IVs Current Medications Iohexol 99 ml 99 ml STK-MED ONCE IV Last administered on 08/26/16 19:12; Start 08/26/16 at 19:12; Stop 08/26/16 at 19:13; Status DC Levofloxacin/ Dextrose (Levaquin 500 Mg Premix Inj) 100 ml @ 100 mls/hr ONCE ONCE IV Last administered on 08/26/16 19:22; Start 08/26/16 at 19:15; Stop at 20:14; Status DC Albuterol/ Ipratropium (Duoneb Neb) 1 ampule Q4HR NEB PRN NEB SOB/WHEEZING Last administered on 08/28/16 11:58; Start 08/26/16 at 20:00; Stop 08/28/16 at 12:35; Status DC Budesonide/ Formoterol Fumarate (Symbicort 160-4.5 Inh) 2 puff Q12HR INH Last administered on 08/29/16 09:12; Start 08/26/16 at 21:00; Stop 08/29/16 at 11:48 ; Status DC Guaifenesin 600 mg 600 mg BID PO Last administered on 09/23/16 09:12; Start 08/26/16 at 21:00 Sodium Chloride (NS 1000 ml Inj) 1,000 ml @ 100 mls/hr Q10H IV Last administered on 08/27/16 05:03; Start 08/26/16 at 19:49; Stop 08/27/16 at 14:50 ; Status DC Sodium Chloride (NS Flush) 2 ml UNSCH PRN IV FLUSH FLUSH AFTER USING IV ACCESS Last administered on 09/15/16 01:00; Start 08/26/16 at 20:00 Sodium Chloride (NS Flush) 2 ml BID IV FLUSH Last administered on 09/23/16 09: 13; Start 08/26/16 at 21:00 Ondansetron HCl (Zofran Inj) 4 mg Q6H PRN IVP NAUSEA OR VOMITING Last administered on 09/19/16 22:08; Start 08/26/16 at 20:00 Heparin Sodium (Porcine) (Heparin Inj) 5,000 units Q8H SQ Last administered on 09/16/16 12:57; Start 08/26/16 at 20:00; Stop 09/16/16 at 16:28; Status DC Acetaminophen (Tylenol) 650 mg Q6H PRN PO FEVER/PAIN SCALE 1 TO 2 Last administered on 08/30/16 01:45; Start 08/26/16 at 20:00 Acetaminophen/ Hydrocodone Bitart ([place] 5-325 Mg) 1 tab Q4H PRN PO PAIN SCALE 3 TO 5; Start 08/26/16 at 20:00 Morphine Sulfate (Morphine Inj) 2 mg Q3H PRN IV Pain 6-10; Start 08/26/16 at 20: 00 Senna/Docusate Sodium (Letty-Colace) 1 tab BID PO Last administered on 09/20/16 08:41; Start 08/26/16 at 21:00 Magnesium Hydroxide (Milk Of Magnesia Liq) 30 ml Q12H PRN PO MILD - MODERATE CONSTIPATION; Start 08/26/16 at 20:00 Sennosides (Senokot) 17.2 mg Q12H PRN PO MODERATE - SEVERE CONSTIPATION; Start 08/26/16 at 20:00 Bisacodyl (Dulcolax Supp) 10 mg DAILY PRN RECTAL SEVERE CONSITIPATION; Start at 20:00 Lactulose 30 ml 30 ml DAILY PRN PO SEVERE CONSITIPATION Last administered on 09:06; Start 08/26/16 at 20:00 Levofloxacin/ Dextrose (Levaquin 750 Mg Premix Inj) 150 ml @ 100 mls/hr Q24H IV Last administered on 09/05/16 21:13; Start 08/27/16 at 21:00; Stop at 17:38; Status DC Duloxetine HCl (Cymbalta Dr) 60 mg DAILY PO Last administered on 09/23/16 09:12 ; Start 08/27/16 at 09:00 Atorvastatin Calcium (Lipitor) 80 mg DAILY PO Last administered on 09/23/16 09: 12; Start 08/27/16 at 09:00 Tolterodine Tartrate (Detrol La) 2 mg DAILY PO Last administered on 09/23/16 09 :12; Start 08/27/16 at 09:00 Furosemide (Lasix Inj) 40 mg STAT ONCE IV PUSH Last administered on 08/28/16 10:34; Start 08/28/16 at 10:30; Stop 08/28/16 at 10:31; Status DC Enalaprilat (Vasotec Inj) 1.25 mg Q6H PRN IV SBP> OR = 180, DBP> OR = 100; Start 08/28/16 at 10:30 Albuterol/ Ipratropium (Duoneb Neb) 1 ampule Q4HR NEB NEB Last administered on 08/29/16 10:56; Start 08/28/16 at 16:00; Stop 08/29/16 at 11:48; Status DC Albuterol/ Ipratropium (Duoneb Neb) 1 ampule Q2HR NEB PRN NEB SHORTNESS OF BREATH Last administered on 09/22/16 04:56; Start 08/28/16 at 12:30 Methylprednisolone Sodium Succinate (SoluMEDROL INJ) 60 mg Q6HR IV PUSH Last administered on 08/28/16 12:43; Start 08/28/16 at 12:30; Stop 08/28/16 at 16:28 ; Status DC Dextrose (D50w (Vial) Inj) 50 ml UNSCH PRN IV HYPOGLYCEMIA-SEE COMMENTS; Start 08/28/16 at 12:30 Glucagon (Glucagon Inj) 1 mg UNSCH PRN OTHER HYPOGLYCEMIA-SEE COMMENTS; Start 08/28/16 at 12:30 Insulin Human Regular (NovoLIN R SUPPLEMENTAL SCALE) 1 Q6HR SQ Last administered on 09/01/16 11:58; Start 08/28/16 at 12:30; Stop 09/01/16 at 13:05 ; Status DC Methylprednisolone Sodium Succinate 40 mg 40 mg Q8HR IV Last administered on 05:14; Start 08/28/16 at 22:00; Stop 08/29/16 at 11:48; Status DC Potassium Chloride 100 ml @ 50 mls/hr Q2H PRN IV For Potassium 2.8 - 3.2 mEq/L ; Start 08/28/16 at 16:30; Stop 09/07/16 at 09:04; Status DC Potassium Chloride (KCl 20 Meq Premix Inj) 100 ml @ 50 mls/hr Q2H PRN IV For Potassium 2.8 - 3.2 mEq/L; Start 08/28/16 at 16:30; Stop 09/07/16 at 09:04; Status DC Potassium Bicarb/ Potassium Chloride 50 meq 50 meq UNSCH PRN PO For Potassium 3.3 - 3.5 mEq/L; Start 08/28/16 at 16:30; Stop 09/07/16 at 09:04; Status DC Potassium Chloride 100 ml @ 25 mls/hr UNSCH PRN IV For Potassium 3.3 - 3.5 mEq /L; Start 08/28/16 at 16:30; Stop 09/07/16 at 09:04; Status DC Potassium Chloride 100 ml @ 50 mls/hr Q2H PRN IV For Potassium 3.3 - 3.5 mEq/L ; Start 08/28/16 at 16:30; Stop 09/07/16 at 09:04; Status DC Magnesium Sulfate/ Sodium Chloride (Magnesium Sulfate Inj/NS Inj) 100 ml @ 50 mls/hr UNSCH PRN IV For Magnesium 0.9 - 1.1 mg/dL; Start 08/28/16 at 16:30; Stop 09/07/16 at 09:05; Status DC Magnesium Oxide 800 mg 800 mg UNSCH PRN PO For Magnesium 1.2 - 1.6 mg/dL; Start 08/28/16 at 16:30; Stop 09/07/16 at 09:05; Status DC Magnesium Sulfate/ Sodium Chloride (Magnesium Sulfate Inj/NS Inj) 100 ml @ 50 mls/hr UNSCH PRN IV For Magnesium 1.2 - 1.6 mg/dL; Start 08/28/16 at 16:30; Stop 09/07/16 at 09:05; Status DC Potassium Phosphate 2000 mg 2,000 mg Q4H PRN PO For Phosphorus < 2.5 mg/dL Last administered on 09/06/16t 14:29; Start 08/28/16 at 16:30; Stop 09/07/16 at 09:06; Status DC Sodium Phosphate/ Sodium Chloride (Sodium Phosphate Inj/NS 250 ml Inj) 250 ml @ 42 mls/hr UNSCH PRN IV For Phosphorus < 2.5 mg/dL; Start 08/28/16 at 16:30; Stop 09/07/16 at 09:06; Status DC Potassium Phosphate 2000 mg 2,000 mg UNSCH PRN PO/TUBE SEE LABEL COMMENTS; Start 08/28/16 at 16:30; Stop 09/07/16 at 09:06; Status DC Potassium Phosphate/Sodium Chloride (Potassium Phosphate Inj/NS 250 ml Inj) 260 ml @ 42 mls/hr UNSCH PRN IV SEE LABEL COMMENTS; Start 08/28/16 at 16:30; Stop 09/07/16 at 09:06; Status DC Miscellaneous Information Patient in critical care unit? Ass... [id number] .XX ; Start 08/28/16 at 19:30 Chlorhexidine Gluconate (Chlorhexidine 2% Cloth) 3 pack DAILY@04 TOPICAL Last administered on 09/02/16 04:00; Start 08/29/16 at 04:00; Stop 09/02/16 at 04:01 ; Status DC Chlorhexidine Gluconate (Chlorhexidine 2% Cloth) 3 pack UNSCH PRN TOPICAL HYGIENIC CARE; Start 08/28/16 at 19:30; Stop 09/02/16 at 19:28; Status DC Albuterol/ Ipratropium (Duoneb Neb) 1 ampule TID NEB NEB Last administered on 09/05/16 07:58; Start 08/29/16 at 14:00; Stop 09/05/16 at 12:37; Status DC Methylprednisolone Sodium Succinate (SoluMEDROL INJ) 60 mg Q8HR IV Last administered on 09/06/16 14:28; Start 08/29/16 at 14:00; Stop 09/06/16 at 17:38 ; Status DC Pantoprazole Sodium (Protonix) 20 mg DAILY PO Last administered on 09/23/16 09: 12; Start 08/29/16 at 11:45; Stop 09/23/16 at 11:47; Status DC Insulin Human Regular (NovoLIN R SUPPLEMENTAL SCALE) 1 ACHS SQ Last administered on 09/22/16 21:39; Start 09/01/16 at 16:00 Polyethylene Glycol (Miralax) 17 gm DAILY PO Last administered on 09/20/16 08: 41; Start 09/02/16 at 09:00 Polyethylene Glycol (Miralax) 17 gm ONCE ONCE PO ; Start 09/01/16 at 13:15; Stop 09/01/16 at 13:16; Status DC Potassium Chloride (KCl) 20 meq ONCE ONCE PO Last administered on 09/03/16 14 :10; Start 09/03/16 at 13:00; Stop 09/03/16 at 13:04; Status DC Furosemide (Lasix Inj) 40 mg ONCE ONCE IV PUSH Last administered on 09/05/16 11:07; Start 09/05/16 at 11:00; Stop 09/05/16 at 11:02; Status DC Furosemide (Lasix Inj) 20 mg BID@09,18 IV PUSH ; Start 09/06/16 at 09:00; Stop 09/06/16 at 09:00; Status DC Albuterol/ Ipratropium (Duoneb Neb) 1 ampule BID NEB NEB Last administered on 09/08/16 08:08; Start 09/05/16 at 20:00; Stop 09/08/16 at 12:15; Status DC Furosemide (Lasix Inj) 20 mg DAILY IV PUSH Last administered on 09/08/16 09:23 ; Start 09/06/16 at 09:00; Stop 09/08/16 at 12:15; Status DC Trimethoprim/ Sulfamethoxazole (Bactrim Ds 800-160 Mg) 1 tab Q24H PO Last administered on 09/12/16 13:33; Start 09/05/16 at 13:00; Stop 09/13/16 at 08:38 ; Status DC Methylprednisolone Sodium Succinate (SoluMEDROL INJ) 60 mg Q12H IV Last administered on 09/07/16 02:14; Start 09/07/16 at 02:00; Stop 09/07/16 at 12:57 ; Status DC Methylprednisolone Sodium Succinate (SoluMEDROL INJ) 40 mg Q12H IV Last administered on 09/08/16 03:05; Start 09/07/16 at 14:00; Stop 09/08/16 at 12:15 ; Status DC Prednisone (Deltasone) 30 mg BID PO Last administered on 09/12/16 08:54; Start 09/08/16 at 13:00; Stop 09/12/16 at 13:02; Status DC Albuterol/ Ipratropium (Duoneb Neb) 1 ampule BID NEB NEB Last administered on 09/18/16 10:29; Start 09/10/16 at 20:00; Stop 09/18/16 at 13:08; Status DC Methylprednisolone Sodium Succinate (SoluMEDROL INJ) 60 mg Q12HR IV PUSH Last administered on 09/13/16 08:26; Start 09/12/16 at 14:00; Stop 09/13/16 at 08:38 ; Status DC Methylprednisolone Sodium Succinate (SoluMEDROL INJ) 60 mg Q8H IV PUSH Last administered on 09/16/16 09:04; Start 09/13/16 at 16:00; Stop 09/16/16 at 11:14 ; Status DC Trimethoprim/ Sulfamethoxazole (Bactrim Ds 800-160 Mg) 1 tab BID PO Last administered on 09/23/16 09:12; Start 09/13/16 at 09:00 Methylprednisolone Sodium Succinate (SoluMEDROL INJ) 60 mg Q12HR IV PUSH Last administered on 09/19/16 08:58; Start 09/16/16 at 21:00; Stop 09/19/16 at 11:08; Status DC Enoxaparin Sodium (Lovenox Inj) 40 mg Q24H SQ Last administered on 09/19/16 18: 27; Start 09/17/16 at 18:00; Stop 09/21/16 at 15:54; Status DC Prednisone (Deltasone) 40 mg BID PO Last administered on 09/21/16 11:19; Start 09/19/16 at 21:00; Stop 09/21/16 at 15:13; Status DC Enoxaparin Sodium (Lovenox Inj) 40 mg Q24H SQ Last administered on 09/22/16 16: 36; Start 09/21/16 at 16:00 Prednisone (Deltasone) 30 mg BID PO ; Start 09/21/16 at 21:00; Stop 09/21/16 at 21 :00; Status DC Prednisone (Deltasone) 20 mg BID PO Last administered on 09/23/16 09:12; Start 09/21/16 at 21:00 Pantoprazole Sodium (Protonix) 40 mg DAILY PO ; Start 09/24/16 at 09:00; Status UNV Date of Removal: Sep 04, 2016 A/P Problem List: (1) Hypoxia ICD Code: R09.02 Status: Acute (2) Bandemia ICD Code: D72.825 Status: Acute (3) Dehydration ICD Code: E86.0 Status: Resolved (4) Breast CA ICD Code: C50.919 Status: Acute (5) HTN (hypertension) ICD Code: I10 Status: Acute (6) Acute respiratory failure ICD Code: J96.00 Status: Resolved Assessment and Plan 76 years old female admitted for Acute hypoxemic respiratory failure- on 6LNC Extensive ground-glass opacities. Ddx: hypersensitivity pneumonitis vs chemotherapy induced pulmonary toxicity/interstitial pneumonitis versus other causes of valvulitis -Repeat CT scan showing resolution of the pneumonitis but now showing interstitial fibrosis. -continue to adjust NC -Duo nebs 3 times a day and as needed dyspnea -Currently on prednisone 20 mg by mouth twice a day. -Followed by pulmonology- on Bactrim bid -Dr. barrientos ff closely along with us Interstitial pulmonary fibrosis -Patient now showing development. -She continues to desat with minimal improvement. -Extensive education to diagnosis and prognosis discussed with patient. -Poor prognosis. Consult palliative care. Triple positive left breast cancer status post Herceptin scan and Taxol 07/15 weekly chemotherapy Normocytic anemia Leukocytosis Monitor CBC daily. Follow trends Bactrim bid - - 09/13 per Pulmonary Leukocytosis- on steroids Dyphagia- Poor po appetite - -EGD cancelled due to low 02 saturation- may not tolerate anesthesia -on PPIGI: - speech therapy consult for swallowing evaluation on PPI Letty-Colace twice a day bowel regimen with MiraLAX daily Dyslipidemia Stage I diastolic dysfunction currently on Lipitor 80 mg by mouth at bedtime for dyslipidemia 2-D echo revealed EF 55%. Stage I diastolic dysfunction. Mild MR. Depression Continue Cymbalta 60 mg by mouth daily for depression Continue [place] for pain management good family support Dyslipidemia Stage I diastolic dysfunction currently on Lipitor 80 mg by mouth at bedtime for dyslipidemia 2-D echo revealed EF 55%. Stage I diastolic dysfunction. Mild MR. Urinary Incontinence- improved -Continue Detrol LA 2 mg by mouth daily Hyper-magnesium -Replace electrolytes as clinically indicated Decondition -PT consulted and working with patient Prophylaxis - GI - Protonix - DVT - SCD/Lovenox- restart- EGD cancelled Discharge Planning Patient continues to desat with minimal movement. She is developing interstitial pulmonary fibrosis. I reviewed CODE STATUS with patient again and she said that she does not want to be intubated but wants to speak to her before changing her code to a DO NOT RESUSCITATE, so will keep her full code. Palliative care also consulted. Priscilla Rich MD Sep 23, 2016 12:20
--- NOTE | 2016-09-23 15:23 | PD.WCN.NOT ---
Wound Consult Description: Patient seen on [address] [facility] for evaluation of bilateral buttocks per nursing. Communicated with: HARI Hendrickson Recommendation: Calazime BID and PRN for bilateral buttock moisture related partial thickness skin loss Additional Information: Patient seen on 4 [place] for bilateral buttock open wounds. Patient was positioned to her right side for assessment of partial thickness skinloss noted to bilateral buttocks related to friction and moisture as evidenced by the erosions and denuded periwounds with jagged wound edges. Calazime skin protectant was applied in a thick layer. Candace Kumar [facility] Sep 23, 2016 15:23
--- NOTE | 2016-09-23 17:28 | PD.CONS ---
Consult Service Palliative Care Consult Requested By Dr. Rich. Primary Care Physician Non-Staff Reason for Consultation a. To assist with evaluation and management of symptoms including: Shortness of breath and debility. b. To assist medical decision maker(s) with: better understanding of current medical conditions; weighing benefits/burdens of medical treatment options; making medical treatment decisions. . HPI History of Present Illness Mrs. Valverde is a 76 y/o female with a medical history significant for breast cancer status post lumpectomy and currently on chemotherapy who was sent to the emergency room from her oncologist office secondary to shortness of breath. VQ scan with low probability for PE. CTA negative for PE. Pulmonary fibrosis noted. Chest x-ray revealing vascular congestion or volume overload. Laboratory showing WBC 6.1, Hgb 10.7, platelet count 364. Neutrophils 74, band neutrophils 8. Sodium 140, potassium 3.6, BUN/creatinine 8/0.76. Troponin less than 0.02. Albumin 2.6. Patient was admitted for further management of hypoxia, bandemia and dehydration. Patient with history of triple positive left breast cancer diagnosed proximately 3 months ago. She underwent left breast lumpectomy and sentinel lymph node sampling which were negative. The patient was started on weekly Herceptin and Taxol chemotherapy on July 15, 2016. Patient tolerating well until the first week of August when she started experiencing increased shortness of breath. Prior to starting chemotherapy on 08/26/16, patient's oxygen saturation was in the mid to high 80s, she was placed on O2 with improvement. Upon exertion, patient's oxygen saturation dropped to the 70s and patient was transferred to emergency room via EMS. On 08/26/16, clinical course complicated by worsening respiratory status requiring transfer to ICU. Tool Repairer Bench, Dr. Hansen consulted. Oncology, Dr. Kirk consulted on 08/27/16 for evaluation of breast cancer. Echocardiogram ordered. Cardiology, Dr. Louie consulted on 08/28/16 for evaluation of possible CHF. Echocardiogram 08/27/16 revealing EF in the range of 50-55% and mild mitral regurgitation, normal left ventricular function and valves. EKG showing sinus rhythm. Pulmonology, Dr. Hammond consulted on . Patient with diffuse groundglass densities on CT scan, likely secondary to drug reaction either to Taxol or Herceptin. Patient was placed on Solu-Medrol and Bactrim. Patient remained with profound dyspnea and oxygen saturation on physical exertion. No plan for further chemotherapy at this time secondary to complications. GI, Dr. Vang consulted on 09/20/16 secondary to dysphagia. EGD recommended, however, canceled secondary to oxygen desaturation, anesthesia risk. Physical therapy following since 09/07/16, limited participation secondary to profound dyspnea, oxygen saturation on minimal exertion. As per PT notes of today, patient oxygen saturations dropping to low 80s when sitting at the side of the bed. Patient requiring 2 person assist to transfer to bedside commode, oxygen saturation dropped to 60s post transfer. Patient seen in her room, she was resting in bed in no acute distress. She reports profound dyspnea on physical exertion. Endorsing difficulty swallowing , has been seen by GI. Barium swallow eval 09/21/16 with no mechanical obstruction demonstrated. Speech therapy following, currently on soft diet, drinking 2-3 Ensure daily. Endorsing mild nausea, no vomiting. Having daily bowel movements. Denies pain or abdominal discomfort this time. Patient afebrile, stable hemodynamically. Currently on O2 via nasal cannula at 5 L. Oxygen saturation in the mid to low 90s. Tachycardic with heart rate in the 110s. Most recent laboratory 09/19/16 showing WBC 21.1, Hgb 10.6, platelet count 146. Chest CT 09/21/16 revealing overall groundglass opacity has improved over the last month but with a fairly rapid progression to pulmonary fibrosis in the peripheral upper lungs at a rate typically not seen with idiopathic pulmonary fibrosis. Bedside conversation with patient and . Obtain medical and psychosocial history. In this first visit, reviewed the role of palliative care in regards to symptom management as well as assistance with advanced directives and clarifications of goals of care. Patient tells me that she was fairly independent prior to her diagnosis of breast cancer approximately 3 months ago. She was tolerating chemotherapy until 2 weeks prior to presenting to the emergency room secondary to worsening dyspnea. Patient with a good understanding of her illness, now with pulmonary fibrosis likely secondary to chemotherapy agents. Patient tells me that as per pulmonology, Dr. hammond, there is the potential for clinical improvement. Patient's goal of therapy at this time is to continue improving clinically so she can be discharge home with home health. Discussed with patient likely trajectory of illness to include high risk for further complications, continue decline and . Reviewed with patient and that as we continue hoping for clinical improvement, which should also anticipate clinical complications. Patient interested in completing living will. Discussed risks, benefits and limitations of CPR, intubation and mechanical ventilation given her clinical condition and medical history. Patient verbalized wishing to be DNR, discussed with patient that she is currently alternate code with ACLS drugs only. Patient wishing to remain alternate code at this time. She would like to complete community DNR in the future. Introduce hospice philosophy and benefits, patient and receptive to this. Reviewed the role of hospice should her clinical condition worsen or there is additional physical decline. Patient and verbalized appreciation for my visit today. Active listening provided. Palliative care will continue to follow-up. Case discussed with TAYA Sol. and bedside RN. . Function/Cognitive Trajectory Patient independent prior to her breast cancer diagnosis approximately 3 months ago. Requiring some assistance with ADLs 2 weeks prior to admission. No walker or cane at that time. No cognitive decline reported. . Review of Systems Constitutional: COMPLAINS OF: Fatigue, Change in appetite, Generalized weakness , DENIES: Fever Endocrine: DENIES: Heat/cold intolerance Eyes: DENIES: Eye pain, Double Vision Ears, nose, mouth, throat: DENIES: Hearing loss, Nasal discharge, Running Nose Cardiovascular: COMPLAINS OF: Dyspnea on Exertion, Orthopnea Gastrointestinal: COMPLAINS OF: Difficulty Swallowing, DENIES: Abdominal pain , Nausea, Vomiting Genitourinary: COMPLAINS OF: Urinary frequency Musculoskeletal: COMPLAINS OF: Decreased range of motion Integumentary: DENIES: Abnormal pigmentation Hematologic/Lymphatics: COMPLAINS OF: Bruising Immunologic/Allergic: DENIES: Eczema Neurologic: DENIES: Headache, Localized weakness Psychiatric: COMPLAINS OF: Depression, DENIES: Anxiety, Agitation Past Family Social History Coded Allergies: No Known Allergies (Unverified , 08/26/16) Past Medical History Left breast cancer Depression Hemorrhoids Arthritis . Past Surgical History Left breast lumpectomy and sentinel lymph node sampling Right knee surgery Left knee surgery Colonoscopy Cataract Appendectomy . Reported Medications Crestor (Rosuvastatin Calcium) 40 Mg Tab 40 Mg PO DAILY Vesicare (Solifenacin) 5 Mg Tab 5 Mg PO DAILY Cymbalta DR (Duloxetine HCl) 60 Mg Capdr 60 Mg PO DAILY . Current Medications Medications (Trade) Dose Ordered Sig/Aurelia Route Start Time Stop Time Status Last Admin (Mucinex Er) 600 mg BID PO 08/26/16 21:00 09/23/16 09:12 (NS Flush) 2 ml UNSCH PRN IV FLUSH 08/26/16 20:00 09/15/16 01:00 (NS Flush) 2 ml BID IV FLUSH 08/26/16 21:00 09/23/16 09:13 (Zofran Inj) 4 mg Q6H PRN IVP 08/26/16 20:00 09/19/16 22:08 (Tylenol) 650 mg Q6H PRN PO 08/26/16 20:00 08/30/16 01:45 ([place] 5-325 Mg) 1 tab Q4H PRN PO 08/26/16 20:00 (Morphine Inj) 2 mg Q3H PRN IV 08/26/16 20:00 (Letty-Colace) 1 tab BID PO 08/26/16 21:00 09/20/16 08:41 (Milk Of Magnesia Liq) 30 ml Q12H PRN PO 08/26/16 20:00 (Senokot) 17.2 mg Q12H PRN PO 08/26/16 20:00 (Dulcolax Supp) 10 mg DAILY PRN RECTAL 08/26/16 20:00 (Lactulose Liq) 30 ml DAILY PRN PO 08/26/16 20:00 09/01/16 09:06 (Cymbalta Dr) 60 mg DAILY PO 08/27/16 09:00 09/23/16 09:12 (Lipitor) 80 mg DAILY PO 08/27/16 09:00 09/23/16 09:12 (Detrol La) 2 mg DAILY PO 08/27/16 09:00 09/23/16 09:12 (Vasotec Inj) 1.25 mg Q6H PRN IV 08/28/16 10:30 (D50w (Vial) Inj) 50 ml UNSCH PRN IV 08/28/16 12:30 (Glucagon Inj) 1 mg UNSCH PRN OTHER 08/28/16 12:30 Miscellaneous Information Patient in critical care unit? Ass... Q361D .XX 08/28/16 19:30 (NovoLIN R SUPPLEMENTAL SCALE) 1 ACHS SQ 09/01/16 16:00 09/22/16 21:39 (Miralax) 17 gm DAILY PO 09/02/16 09:00 09/20/16 08:41 (Lovenox Inj) 40 mg Q24H SQ 09/21/16 16:00 09/22/16 16:36 (Protonix) 40 mg DAILY PO 09/24/16 09:00 (Deltasone) 40 mg BID PO 09/23/16 21:00 (Bactrim Ds 800-160 Mg) 2 tab BID PO 09/23/16 21:00 Family History Father with prostate cancer. Sister with breast cancer. . Substance Use Tobacco: None reported. Alcohol: Social drinker. Prescription med abuse: None reported. Illicits: None reported. . Psychosocial History Patient is originally from [place]. Has been to current for the past 52 years. They have 3 children, 1 son in [place] and 2 daughters in [place]. 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 . Spiritual/Cultural Factors Anglican chet. . Living Will: Never completed Health Care Surrogate: Never completed Durable Power of Bulk Folder: Never completed Health Care Surrogate(s): No advance directives completed. [place] law, healthcare proxy decision maker is patient's . . Documented care wishes: No living will completed. . Today's verbally stated goals: Alternate code/ACLS drugs only. Continue current medical management with the gold to discharge home with home health. . Family/friends goals: Patient's fully supportive of goals of care. . Ethical and Legal Issues No ethical legal issues have been identified. Patient participating in medical decision-making. . Physical Exam Vital Signs Date Time Temp Pulse Resp B/P Pulse Ox O2 Delivery O2 Flow Rate FiO2 09/23/16 16:00 Nasal Cannula 5.00 09/23/16 12:00 97.4 109 22 127/69 93 09/23/16 12:00 Nasal Cannula 5.00 09/23/16 10:43 97 Nasal Cannula 4.50 09/23/16 08:00 Nasal Cannula 5.00 09/23/16 08:00 97.6 104 22 148/79 92 09/23/16 04:00 97.6 91 20 135/72 94 09/23/16 00:00 98.0 101 24 137/70 100 09/22/16 20:34 92 Nasal Cannula 4.00 09/22/16 20:15 Nasal Cannula 5.00 Humidified 09/22/16 20:05 97.8 101 20 130/57 94 09/22/16 19:50 100 09/22/16 09/23/16 19:00 07:00 Intake Total 840 ml 440 ml Output Total 730 ml 360 ml Balance 110 ml 80 ml Intake Oral 840 ml 440 ml Output Urine Total 730 ml 360 ml # Voids 0 0 # Bowel Movements 0 0 Exam CONSTITUTIONAL/GENERAL: This is an adequately nourished patient, in no apparent distress. Resting in bed. TUBES/LINES/DRAINS: PIV's, nasal cannula. SKIN: No jaundice, rashes, or lesions. Ecchymoses on upper extremities. No wounds seen anteriorly. Skin temperature appropriate. Not diaphoretic. HEAD: Atraumatic. Normocephalic. Alopecia. EYES: Pupils equal and round and reactive. Extraocular motions intact. No scleral icterus. No injection or drainage. ENT: Hearing grossly normal. Nose without bleeding or purulent drainage. Chapped lips. NECK: Trachea midline. Supple, nontender. CARDIOVASCULAR: Tachycardic, without murmurs, gallops, or rubs. No JVD. Peripheral pulses symmetric. RESPIRATORY/CHEST: Symmetric, increased work of breathing with exertion. Clear, diminished to auscultation. Breath sounds equal bilaterally. GASTROINTESTINAL: Abdomen soft, non-tender, nondistended. No guarding. Bowel sounds present. GENITOURINARY: Without palpable bladder distension. MUSCULOSKELETAL: Extremities without clubbing, cyanosis. Trace edema to bilateral lower extremities. NEUROLOGICAL: Awake and alert. Motor and sensory grossly within normal limits. Follows commands. Cognitively sharp. Moves all extremities. PSYCHIATRIC: No obvious anxiety/depression. no apparent hallucinations or other psychotic thought process. . Diagnostic Tests Result Diagram: 09/19/16 1230 Imaging Last Impressions Chest CT 09/21/16 0000 Signed Impressions: Service Date/Time: Wednesday, September 21, 2016 19:53 - CONCLUSION: 1. Overall groundglass opacity has improved over the last month but with a fairly rapid progression to pulmonary fibrosis in the peripheral upper lungs at a rate typically not seen with idiopathic pulmonary fibrosis. They could still be some underlying idiopathic pulmonary fibrosis findings more characteristic in the lower lobes with early honeycombing, traction bronchiectasis and minimal peripheral distribution. The findings are not classic for usual interstitial pneumonitis and may require open lung biopsy for diagnosis. Checo Conner MD Barium Swallow X-Ray 09/21/16 0000 Signed Impressions: Service Date/Time: Wednesday, September 21, 2016 10:48 - CONCLUSION: 1. Small sliding hiatal hernia at the GE junction. 2. No mechanical obstruction is demonstrated. Ha Guardado MD Chest X-Ray 09/12/16 0000 Signed Impressions: Service Date/Time: Monday, September 12, 2016 10:22 - CONCLUSION: Stable chest x-ray with peripheral and lower lung zone predominant interstitial opacities bilaterally. Romel Haas MD Lung Scan-V Nuclear Medicine 08/26/16 Signed Impressions: Service Date/Time: Friday, August 26, 2016 20:26 - CONCLUSION: 1. Low probability for pulmonary embolus. Checo Conner MD CT Angiography 08/26/16 Signed Impressions: Service Date/Time: Friday, August 26, 2016 16:50 - CONCLUSION: 1. Negative for pulmonary embolus. Pulmonary fibrosis as above, not easily classifiable. There is also extensive groundglass opacity with lobular sparing. Differential diagnosis includes sequela of drug reaction or subacute hypersensitivity pneumonitis, atypical usual interstitial pneumonitis, or other causes of alveolitis. Checo Conner MD Patient/Family Conference Present at Family Conference: Patient and Anderson. Family Conference Time (mins): 45 Family Conference Location: Bedside Issues Discussed: * Palliative care role, purpose, approach * Additional medical, psychosocial, and spiritual history * Patients general health, functional status, and cognitive changes in the months leading up to the current hospitalization * Patient/family understanding of the current medical problems -rapid progression of pulmonary fibrosis * Patient/family understanding of prognosis -high risk for further complications , progressive decline and . * Patients goals of care as best understood from advance directives and/or conversations and/or values * Current medical treatment options and benefits/burdens of those options * Questions answered to the best of my ability * Palliative care contact information provided * Risks, benefits and limitations of CPR given patient's clinical condition and medical history * Hospice philosophy and benefits . Assessment and Plan Disease Oriented Problem List: (1) Acute respiratory failure (2) Hypoxia (3) Pulmonary fibrosis (4) Breast CA Symptom Scale: (1) Shortness of breath 0-10 Scale: 5 Comment: On minimal exertion. (2) Debility 0-10 Scale: Unable to quantify Comment: Progressive, worsen secondary to acute illness. Pertinent Non-Medical Issues Psychosocial: Originally from [place]. for the past 52 years. 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 Spiritual: Anglican chet. Legal: No advance directives completed. Ethical issues impacting care: No advance directives completed. . Important Contacts Patient's Anderson Valverde [phone] & . . Prognosis Mrs. Valverde is a 76 y/o female with a medical history significant for breast cancer status post lumpectomy and currently on chemotherapy who was sent to the emergency room from her oncologist office secondary to shortness of breath. Patient with diffuse groundglass densities on CT scan, likely secondary to drug reaction either to Taxol or Herceptin. Patient was placed on Solu-Medrol and Bactrim. Patient remained with profound dyspnea and oxygen saturation on physical exertion. No plan for further chemotherapy at this time secondary to complications. Physical therapy following since 09/07/16, limited participation secondary to profound dyspnea, oxygen saturation on minimal exertion. Most recent chest CT 09/21/16 revealing overall groundglass opacity has improved over the last month but with a fairly rapid progression to pulmonary fibrosis in the peripheral upper lungs at a rate typically not seen with idiopathic pulmonary fibrosis. Patient remains a high risk for further complications, clinical decline and . . Code Status: Alternative Code Plan * CODE STATUS: Alternate code/ACLS drugs only. * HEALTHCARE DECISION MAKER: Patient participating in medical decision-making. No advance directives completed. [place] law, healthcare proxy decision maker is patient's Anderson Valverde. Both patient and in agreement to this, patient declined completing designation of healthcare surrogate at this time. * GOALS OF CARE: Patient wishing to continue with current medical management short of alternate code/ACLS drugs only. Ultimate goal is to discharge home with home health. Patient demonstrates a good understanding of her medical condition and ability to weight the benefits and burdens of treatment options, patient understands that there is no chemotherapy offered at this time/oncology following. Reviewed that patient remains a high risk for further complications , continue decline and . Introduced the future role of hospice should her clinical condition worsen or there is additional physical decline. Patient and receptive to this. * Bedside conversation with patient and . Obtain medical and psychosocial history. In this first visit, reviewed the role of palliative care in regards to symptom management as well as assistance with advanced directives and clarifications of goals of care. Patient tells me that she was fairly independent prior to her diagnosis of breast cancer approximately 3 months ago. She was tolerating chemotherapy until 2 weeks prior to presenting to the emergency room secondary to worsening dyspnea. Patient with a good understanding of her illness, now with progressive pulmonary fibrosis likely secondary to chemotherapy agents. Patient tells me that as per pulmonology, Dr. hammond, there is the potential for clinical improvement. Patient's goal of therapy at this time is to continue improving clinically so she can be discharge home with home health. Discussed with patient likely trajectory of illness to include high risk for further complications, continue decline and . Reviewed with patient and that as we continue hoping for clinical improvement, which should also anticipate clinical complications. Patient interested in completing living will. Discussed risks, benefits and limitations of CPR, intubation and mechanical ventilation given her clinical condition and medical history. Patient verbalized wishing to be DNR, discussed with patient that she is currently alternate code with ACLS drugs only. Patient wishing to remain alternate code at this time. She would like to complete community DNR in the future. Introduce hospice philosophy and benefits , patient and receptive to this. Reviewed the role of hospice should her clinical condition worsen or there is additional physical decline. * SYMPTOMS: = Shortness of breath, secondary to pulmonary fibrosis, respiratory failure. Pulmonology following. Currently on prednisone 40 mg 2 twice a day. DuoNeb as needed. = Debility, progressive. Worsen secondary to acute illness. PT following with limited patient participation secondary to profound dyspnea on minimal exertion. * Case discussed with TAYA Sol and bedside RN. * Active listening and ongoing emotional support provided to patient and . Patient appreciative of my visit today. * Palliative care contact information has been provided to patient and . * Palliative care will continue to follow-up for further clarifications of goals of care as her clinical course evolves. . Time Spent Total Floor Time (mins): 85 (Total time to include review and summarization of available medical records, physical exam, goals of care conversation with patient and and case discussion with Niesha Gandara and bedside RN.) >50% Counseling/Coord of Care: Yes Thank you for the opportunity to participate in the care of Ms. Valverde. Attestation To help prompt me to consider important information that might be impacting today's encounter and assessment, information from prior notes written by myself or my colleagues may have been "brought forward" into today's note. My signature on this note, however, is an attestation that I personally performed the exam, history, and/or decision-making noted today, and, unless otherwise indicated, the interactions with patient, family, and staff as well as the review of records all occurred today. I also attest that the listed assessment and stated plan reflect my best clinical judgment today based on the combination of historical information, prior notes, and today's exam/ interactions. When time spent is documented, it refers only to time spent today by the signer, or if indicated, combined time spent today by collaborating physician/nurse practitioner. Angélica Dewey Sep 23, 2016 17:09
[2016-09-23] MEDS ORDERED: SULFAMETHOXAZOLE-TRIMETHOPRIM DS 800-160 MG TAB PO SCH (18:00)
[2016-09-23] MEDS: ENOXAPARIN SODIUM 40 MG/0.4 ML SYRINGE SQ SCH (18:01)
[2016-09-23 19:20] LABS: AUTOMATED NEUTROPHIL # 15.4 TH/MM3 (1.8-7.7); BASOPHIL % 0.1 % (0.0-2.0); EOSINOPHIL # 0.1 TH/MM3 (0-0.4); EOSINOPHIL % 0.4 % (0.0-4.0); HEMATOCRIT 33.4 % (35.0-46.0); LYMPH % 3.8 % (9.0-44.0); LYMPHOCYTE # 0.6 TH/MM3 (1.0-4.8); MEAN CORPUSCULAR HEMOGLOBIN 28.5 PG (27.0-34.0); MEAN CORPUSCULAR HGB CONC 33.2 % (32.0-36.0); MONO % 3.2 % (0.0-8.0); NEUT % 92.5 % (16.0-70.0); PLATELET COUNT 203 TH/MM3 (150-450); RED BLOOD COUNT 3.88 MIL/MM3 (4.00-5.30); RED CELL DISTRIBUTION WIDTH 18.3 % (11.6-17.2); WHITE BLOOD COUNT 16.7 TH/MM3 (4.0-11.0)
[2016-09-23 19:21] LABS: HEMO FLAGS AUTO DIFF
[2016-09-23 19:41] LABS: BICARBONATE 25.9 MEQ/L (21.0-32.0); POTASSIUM 4.4 MEQ/L (3.5-5.1)
[2016-09-23 19:53] LABS: SCAN/DIFF AUTO DIFF CONFIRMED
[2016-09-24] VITALS (9 sets, daily range): BP systolic 119–137; BP diastolic 58–73; PULSE 100–111; RESP 18–26; TEMP 97.2–97.6; O2SAT 90–95
[2016-09-24] MEDS: RESP: ALBUTEROL 2.5 MG/IPRATROPIUM 0.5 MG NEB (PRN) NEB (01:14)
[2016-09-24] MEDS: INSULIN NovoLIN REGULAR SUPPLEMENTAL SCALE SQ SCH ×4 (06:01→20:19)
[2016-09-24 08:11] LABS: BICARBONATE 25.8 MEQ/L (21.0-32.0); POTASSIUM 4.8 MEQ/L (3.5-5.1)
[2016-09-24] MEDS: SULFAMETHOXAZOLE-TRIMETHOPRIM DS 800-160 MG TAB PO SCH ×2 (08:44→20:14)
[2016-09-24] MEDS: POLYETHYLENE GLYCOL 17 GM PKG PO SCH (08:44)
[2016-09-24] MEDS: DOCUSATE SODIUM 50 MG/SENNA 8.6 MG TAB PO SCH ×2 (08:45→20:15)
[2016-09-24] MEDS: DULoxetine HCl DR 60 MG CAP PO SCH (08:45)
[2016-09-24] MEDS: guaiFENesin E.R. 600 MG TAB PO SCH ×2 (08:45→20:14)
[2016-09-24] MEDS: SODIUM CHLORIDE 0.9% FLUSH 10 ML FLUSH IV FLUSH SCH ×2 (08:45→20:20)
[2016-09-24] MEDS: predniSONE 20 MG TAB PO SCH ×2 (08:45→20:14)
[2016-09-24] MEDS: PANTOPRAZOLE SOD 40 MG DELAYED RELEASE TAB PO SCH (08:45)
[2016-09-24] MEDS: TOLTERODINE TARTRATE 2 MG CAP LA PO SCH (08:45)
[2016-09-24] MEDS: ATORVASTATIN 80 MG TAB PO SCH (08:45)
[2016-09-24] MEDS ORDERED: LORazepam 0.5 MG TAB PO ONE (10:45)
[2016-09-24] MEDS ORDERED: LORazepam 0.5 MG TAB PO PRN (10:45)
--- NOTE | 2016-09-24 10:46 | HHI.PR ---
Subjective Remarks Follow-up for respiratory failure secondary to pulmonary fibrosis Patient continues to feel shortness of breathing that has been stable. She continues to desat with minimal movement. She feels like she is anxious. Denies any cough. Prednisone was increased to 40 mg by mouth twice a day yesterday. Objective Vitals Vital Signs Date Time Temp Pulse Resp B/P Pulse Ox O2 Delivery O2 Flow Rate FiO2 09/24/16 09:47 93 Nasal Cannula 5.00 09/24/16 08:40 111 09/24/16 08:40 Nasal Cannula 4.00 Humidified 09/24/16 08:00 97.6 111 20 137/71 95 09/24/16 04:43 97.4 107 26 137/70 90 09/24/16 01:16 94 Nasal Cannula 4.00 09/23/16 23:45 99.1 111 29 137/65 95 09/23/16 20:30 Nasal Cannula 4.00 Humidified 09/23/16 20:06 Nasal Cannula 4.50 09/23/16 20:05 97.6 107 33 134/73 91 09/23/16 19:45 106 09/23/16 16:00 97.4 109 20 129/61 95 09/23/16 16:00 Nasal Cannula 5.00 09/23/16 12:00 97.4 109 22 127/69 93 09/23/16 12:00 Nasal Cannula 5.00 09/23/16 10:43 97 Nasal Cannula 4.50 I/O 09/23/16 09/23/16 09/23/16 09/24/16 09/24/16 09/24/16 07:00 15:00 23:00 07:00 15:00 23:00 Intake Total 120 ml 840 ml 240 ml 240 ml Output Total 200 ml 200 ml Balance 120 ml 840 ml 40 ml 40 ml Intake Oral 120 ml 840 ml 240 ml 240 ml Output Urine Total 200 ml 200 ml # Voids 0 0 # Bowel Movements 0 0 0 1 Result Diagram: 09/23/16 1840 09/24/16 0632 Objective Remarks GENERAL: In no acute distress but looks chronically ill. CARDIOVASCULAR: Regular rate and rhythm without murmurs, gallops, or rubs. RESPIRATORY: Bilateral diffuse crackles. No accessory muscle use. GASTROINTESTINAL: Abdomen soft, non-tender, nondistended. MUSCULOSKELETAL: No cyanosis, or edema. BACK: Nontender without obvious deformity. No CVA tenderness. Medications and IVs Current Medications Iohexol 99 ml 99 ml STK-MED ONCE IV Last administered on 08/26/16 19:12; Start 08/26/16 at 19:12; Stop 08/26/16 at 19:13; Status DC Levofloxacin/ Dextrose (Levaquin 500 Mg Premix Inj) 100 ml @ 100 mls/hr ONCE ONCE IV Last administered on 08/26/16 19:22; Start 08/26/16 at 19:15; Stop at 20:14; Status DC Albuterol/ Ipratropium (Duoneb Neb) 1 ampule Q4HR NEB PRN NEB SOB/WHEEZING Last administered on 08/28/16 11:58; Start 08/26/16 at 20:00; Stop 08/28/16 at 12:35; Status DC Budesonide/ Formoterol Fumarate (Symbicort 160-4.5 Inh) 2 puff Q12HR INH Last administered on 08/29/16 09:12; Start 08/26/16 at 21:00; Stop 08/29/16 at 11:48 ; Status DC Guaifenesin 600 mg 600 mg BID PO Last administered on 09/24/16 08:45; Start 08/26/16 at 21:00 Sodium Chloride (NS 1000 ml Inj) 1,000 ml @ 100 mls/hr Q10H IV Last administered on 08/27/16 05:03; Start 08/26/16 at 19:49; Stop 08/27/16 at 14:50 ; Status DC Sodium Chloride (NS Flush) 2 ml UNSCH PRN IV FLUSH FLUSH AFTER USING IV ACCESS Last administered on 09/15/16 01:00; Start 08/26/16 at 20:00 Sodium Chloride (NS Flush) 2 ml BID IV FLUSH Last administered on 09/24/16 08: 45; Start 08/26/16 at 21:00 Ondansetron HCl (Zofran Inj) 4 mg Q6H PRN IVP NAUSEA OR VOMITING Last administered on 09/19/16 22:08; Start 08/26/16 at 20:00 Heparin Sodium (Porcine) (Heparin Inj) 5,000 units Q8H SQ Last administered on 09/16/16 12:57; Start 08/26/16 at 20:00; Stop 09/16/16 at 16:28; Status DC Acetaminophen (Tylenol) 650 mg Q6H PRN PO FEVER/PAIN SCALE 1 TO 2 Last administered on 08/30/16 01:45; Start 08/26/16 at 20:00 Acetaminophen/ Hydrocodone Bitart ([place] 5-325 Mg) 1 tab Q4H PRN PO PAIN SCALE 3 TO 5; Start 08/26/16 at 20:00 Morphine Sulfate (Morphine Inj) 2 mg Q3H PRN IV Pain 6-10; Start 08/26/16 at 20: 00 Senna/Docusate Sodium (Letty-Colace) 1 tab BID PO Last administered on 09/24/16 08:45; Start 08/26/16 at 21:00 Magnesium Hydroxide (Milk Of Magntiffanie Liq) 30 ml Q12H PRN PO MILD - MODERATE CONSTIPATION; Start 08/26/16 at 20:00 Sennosides (Senokot) 17.2 mg Q12H PRN PO MODERATE - SEVERE CONSTIPATION; Start 08/26/16 at 20:00 Bisacodyl (Dulcolax Supp) 10 mg DAILY PRN RECTAL SEVERE CONSITIPATION; Start at 20:00 Lactulose 30 ml 30 ml DAILY PRN PO SEVERE CONSITIPATION Last administered on 09:06; Start 08/26/16 at 20:00 Levofloxacin/ Dextrose (Levaquin 750 Mg Premix Inj) 150 ml @ 100 mls/hr Q24H IV Last administered on 09/05/16 21:13; Start 08/27/16 at 21:00; Stop at 17:38; Status DC Duloxetine HCl (Cymbalta Dr) 60 mg DAILY PO Last administered on 09/24/16 08:45 ; Start 08/27/16 at 09:00 Atorvastatin Calcium (Lipitor) 80 mg DAILY PO Last administered on 09/24/16 08: 45; Start 08/27/16 at 09:00 Tolterodine Tartrate (Detrol La) 2 mg DAILY PO Last administered on 09/24/16 08 :45; Start 08/27/16 at 09:00 Furosemide (Lasix Inj) 40 mg STAT ONCE IV PUSH Last administered on 08/28/16 10:34; Start 08/28/16 at 10:30; Stop 08/28/16 at 10:31; Status DC Enalaprilat (Vasotec Inj) 1.25 mg Q6H PRN IV SBP> OR = 180, DBP> OR = 100; Start 08/28/16 at 10:30 Albuterol/ Ipratropium (Duoneb Neb) 1 ampule Q4HR NEB NEB Last administered on 08/29/16 10:56; Start 08/28/16 at 16:00; Stop 08/29/16 at 11:48; Status DC Albuterol/ Ipratropium (Duoneb Neb) 1 ampule Q2HR NEB PRN NEB SHORTNESS OF BREATH Last administered on 09/24/16 01:14; Start 08/28/16 at 12:30 Methylprednisolone Sodium Succinate (SoluMEDROL INJ) 60 mg Q6HR IV PUSH Last administered on 08/28/16 12:43; Start 08/28/16 at 12:30; Stop 08/28/16 at 16:28 ; Status DC Dextrose (D50w (Vial) Inj) 50 ml UNSCH PRN IV HYPOGLYCEMIA-SEE COMMENTS; Start 08/28/16 at 12:30 Glucagon (Glucagon Inj) 1 mg UNSCH PRN OTHER HYPOGLYCEMIA-SEE COMMENTS; Start 08/28/16 at 12:30 Insulin Human Regular (NovoLIN R SUPPLEMENTAL SCALE) 1 Q6HR SQ Last administered on 09/01/16 11:58; Start 08/28/16 at 12:30; Stop 09/01/16 at 13:05 ; Status DC Methylprednisolone Sodium Succinate 40 mg 40 mg Q8HR IV Last administered on 05:14; Start 08/28/16 at 22:00; Stop 08/29/16 at 11:48; Status DC Potassium Chloride 100 ml @ 50 mls/hr Q2H PRN IV For Potassium 2.8 - 3.2 mEq/L ; Start 08/28/16 at 16:30; Stop 09/07/16 at 09:04; Status DC Potassium Chloride (KCl 20 Meq Premix Inj) 100 ml @ 50 mls/hr Q2H PRN IV For Potassium 2.8 - 3.2 mEq/L; Start 08/28/16 at 16:30; Stop 09/07/16 at 09:04; Status DC Potassium Bicarb/ Potassium Chloride 50 meq 50 meq UNSCH PRN PO For Potassium 3.3 - 3.5 mEq/L; Start 08/28/16 at 16:30; Stop 09/07/16 at 09:04; Status DC Potassium Chloride 100 ml @ 25 mls/hr UNSCH PRN IV For Potassium 3.3 - 3.5 mEq /L; Start 08/28/16 at 16:30; Stop 09/07/16 at 09:04; Status DC Potassium Chloride 100 ml @ 50 mls/hr Q2H PRN IV For Potassium 3.3 - 3.5 mEq/L ; Start 08/28/16 at 16:30; Stop 09/07/16 at 09:04; Status DC Magnesium Sulfate/ Sodium Chloride (Magnesium Sulfate Inj/NS Inj) 100 ml @ 50 mls/hr UNSCH PRN IV For Magnesium 0.9 - 1.1 mg/dL; Start 08/28/16 at 16:30; Stop 09/07/16 at 09:05; Status DC Magnesium Oxide 800 mg 800 mg UNSCH PRN PO For Magnesium 1.2 - 1.6 mg/dL; Start 08/28/16 at 16:30; Stop 09/07/16 at 09:05; Status DC Magnesium Sulfate/ Sodium Chloride (Magnesium Sulfate Inj/NS Inj) 100 ml @ 50 mls/hr UNSCH PRN IV For Magnesium 1.2 - 1.6 mg/dL; Start 08/28/16 at 16:30; Stop 09/07/16 at 09:05; Status DC Potassium Phosphate 2000 mg 2,000 mg Q4H PRN PO For Phosphorus < 2.5 mg/dL Last administered on 09/06/16t 14:29; Start 08/28/16 at 16:30; Stop 09/07/16 at 09:06; Status DC Sodium Phosphate/ Sodium Chloride (Sodium Phosphate Inj/NS 250 ml Inj) 250 ml @ 42 mls/hr UNSCH PRN IV For Phosphorus < 2.5 mg/dL; Start 08/28/16 at 16:30; Stop 09/07/16 at 09:06; Status DC Potassium Phosphate 2000 mg 2,000 mg UNSCH PRN PO/TUBE SEE LABEL COMMENTS; Start 08/28/16 at 16:30; Stop 09/07/16 at 09:06; Status DC Potassium Phosphate/Sodium Chloride (Potassium Phosphate Inj/NS 250 ml Inj) 260 ml @ 42 mls/hr UNSCH PRN IV SEE LABEL COMMENTS; Start 08/28/16 at 16:30; Stop 09/07/16 at 09:06; Status DC Miscellaneous Information Patient in critical care unit? Ass... [id number] .XX ; Start 08/28/16 at 19:30 Chlorhexidine Gluconate (Chlorhexidine 2% Cloth) 3 pack DAILY@04 TOPICAL Last administered on 09/02/16 04:00; Start 08/29/16 at 04:00; Stop 09/02/16 at 04:01 ; Status DC Chlorhexidine Gluconate (Chlorhexidine 2% Cloth) 3 pack UNSCH PRN TOPICAL HYGIENIC CARE; Start 08/28/16 at 19:30; Stop 09/02/16 at 19:28; Status DC Albuterol/ Ipratropium (Duoneb Neb) 1 ampule TID NEB NEB Last administered on 09/05/16 07:58; Start 08/29/16 at 14:00; Stop 09/05/16 at 12:37; Status DC Methylprednisolone Sodium Succinate (SoluMEDROL INJ) 60 mg Q8HR IV Last administered on 09/06/16 14:28; Start 08/29/16 at 14:00; Stop 09/06/16 at 17:38 ; Status DC Pantoprazole Sodium (Protonix) 20 mg DAILY PO Last administered on 09/23/16 09: 12; Start 08/29/16 at 11:45; Stop 09/23/16 at 11:47; Status DC Insulin Human Regular (NovoLIN R SUPPLEMENTAL SCALE) 1 ACHS SQ Last administered on 09/23/16 21:40; Start 09/01/16 at 16:00 Polyethylene Glycol (Miralax) 17 gm DAILY PO Last administered on 09/24/16 08: 44; Start 09/02/16 at 09:00 Polyethylene Glycol (Miralax) 17 gm ONCE ONCE PO ; Start 09/01/16 at 13:15; Stop 09/01/16 at 13:16; Status DC Potassium Chloride (KCl) 20 meq ONCE ONCE PO Last administered on 09/03/16 14 :10; Start 09/03/16 at 13:00; Stop 09/03/16 at 13:04; Status DC Furosemide (Lasix Inj) 40 mg ONCE ONCE IV PUSH Last administered on 09/05/16 11:07; Start 09/05/16 at 11:00; Stop 09/05/16 at 11:02; Status DC Furosemide (Lasix Inj) 20 mg BID@09,18 IV PUSH ; Start 09/06/16 at 09:00; Stop 09/06/16 at 09:00; Status DC Albuterol/ Ipratropium (Duoneb Neb) 1 ampule BID NEB NEB Last administered on 09/08/16 08:08; Start 09/05/16 at 20:00; Stop 09/08/16 at 12:15; Status DC Furosemide (Lasix Inj) 20 mg DAILY IV PUSH Last administered on 09/08/16 09:23 ; Start 09/06/16 at 09:00; Stop 09/08/16 at 12:15; Status DC Trimethoprim/ Sulfamethoxazole (Bactrim Ds 800-160 Mg) 1 tab Q24H PO Last administered on 09/12/16 13:33; Start 09/05/16 at 13:00; Stop 09/13/16 at 08:38 ; Status DC Methylprednisolone Sodium Succinate (SoluMEDROL INJ) 60 mg Q12H IV Last administered on 09/07/16 02:14; Start 09/07/16 at 02:00; Stop 09/07/16 at 12:57 ; Status DC Methylprednisolone Sodium Succinate (SoluMEDROL INJ) 40 mg Q12H IV Last administered on 09/08/16 03:05; Start 09/07/16 at 14:00; Stop 09/08/16 at 12:15 ; Status DC Prednisone (Deltasone) 30 mg BID PO Last administered on 09/12/16 08:54; Start 09/08/16 at 13:00; Stop 09/12/16 at 13:02; Status DC Albuterol/ Ipratropium (Duoneb Neb) 1 ampule BID NEB NEB Last administered on 09/18/16 10:29; Start 09/10/16 at 20:00; Stop 09/18/16 at 13:08; Status DC Methylprednisolone Sodium Succinate (SoluMEDROL INJ) 60 mg Q12HR IV PUSH Last administered on 09/13/16 08:26; Start 09/12/16 at 14:00; Stop 09/13/16 at 08:38 ; Status DC Methylprednisolone Sodium Succinate (SoluMEDROL INJ) 60 mg Q8H IV PUSH Last administered on 09/16/16 09:04; Start 09/13/16 at 16:00; Stop 09/16/16 at 11:14 ; Status DC Trimethoprim/ Sulfamethoxazole (Bactrim Ds 800-160 Mg) 1 tab BID PO Last administered on 09/23/16 09:12; Start 09/13/16 at 09:00; Stop 09/23/16 at 13:27; Status DC Methylprednisolone Sodium Succinate (SoluMEDROL INJ) 60 mg Q12HR IV PUSH Last administered on 09/19/16 08:58; Start 09/16/16 at 21:00; Stop 09/19/16 at 11:08; Status DC Enoxaparin Sodium (Lovenox Inj) 40 mg Q24H SQ Last administered on 09/19/16 18: 27; Start 09/17/16 at 18:00; Stop 09/21/16 at 15:54; Status DC Prednisone (Deltasone) 40 mg BID PO Last administered on 09/21/16 11:19; Start 09/19/16 at 21:00; Stop 09/21/16 at 15:13; Status DC Enoxaparin Sodium (Lovenox Inj) 40 mg Q24H SQ Last administered on 09/23/16 18: 01; Start 09/21/16 at 16:00 Prednisone (Deltasone) 30 mg BID PO ; Start 09/21/16 at 21:00; Stop 09/21/16 at 21 :00; Status DC Prednisone (Deltasone) 20 mg BID PO Last administered on 09/23/16 09:12; Start 09/21/16 at 21:00; Stop 09/23/16 at 14:47; Status DC Pantoprazole Sodium (Protonix) 40 mg DAILY PO Last administered on 09/24/16 08: 45; Start 09/24/16 at 09:00 Trimethoprim/ Sulfamethoxazole (Bactrim Ds 800-160 Mg) 1 tab QID PO ; Start 09/23 at 18:00; Stop 09/23/16 at 18:00; Status DC Prednisone (Deltasone) 40 mg BID PO Last administered on 09/24/16 08:45; Start 09/23/16 at 21:00 Trimethoprim/ Sulfamethoxazole (Bactrim Ds 800-160 Mg) 2 tab BID PO Last administered on 09/24/16 08:44; Start 09/23/16 at 21:00 Date of Removal: Sep 04, 2016 A/P Problem List: (1) Hypoxia ICD Code: R09.02 Status: Acute (2) Bandemia ICD Code: D72.825 Status: Acute (3) Dehydration ICD Code: E86.0 Status: Resolved (4) Breast CA ICD Code: C50.919 Status: Acute (5) HTN (hypertension) ICD Code: I10 Status: Acute (6) Acute respiratory failure ICD Code: J96.00 Status: Resolved Assessment and Plan 76 years old female admitted for Acute hypoxemic respiratory failure- on 6LNC Extensive ground-glass opacities. Ddx: hypersensitivity pneumonitis vs chemotherapy induced pulmonary toxicity/interstitial pneumonitis versus other causes of valvulitis -Repeat CT scan showing resolution of the pneumonitis but now showing interstitial fibrosis. 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 -Continue Bactrim. -Dr. barrientos ff closely along with us Interstitial pulmonary fibrosis -Patient now showing development of pulmonary fibrosis. -She continues to desat with minimal improvement. -Extensive education to diagnosis and prognosis discussed with patient. -Poor prognosis. Palliative care following. Triple positive left breast cancer status post Herceptin scan and Taxol 07/15 weekly chemotherapy Normocytic anemia Leukocytosis Monitor CBC daily. Follow trends Leukocytosis - Due to steroids. Dysphasia - -EGD cancelled due to low 02 saturation- may not tolerate anesthesia -on PPIGI: - speech therapy consult for swallowing evaluation on PPI Dyslipidemia /Stage I diastolic dysfunction/Depression -currently on Lipitor 80 mg by mouth at bedtime for dyslipidemia -2-D echo revealed EF 55%. Stage I diastolic dysfunction. Mild MR. -Continue Cymbalta 60 mg by mouth daily for depression -Continue [place] for pain management Urinary Incontinence- improved -Continue Detrol LA 2 mg by mouth daily Hyper-magnesium -Replace electrolytes as clinically indicated Decondition -PT consulted and working with patient Prophylaxis - GI - Protonix - DVT - SCD/Lovenox- restart- EGD cancelled Discharge Planning Very poor prognosis. Palliative care is following at the moment patient has alternative code. Goal is to be discharge home on oxygen. Prisiclla Rich MD Sep 24, 2016 10:46
[2016-09-24] MEDS: ENOXAPARIN SODIUM 40 MG/0.4 ML SYRINGE SQ SCH (16:31)
[2016-09-25] VITALS (10 sets, daily range): BP systolic 117–163; BP diastolic 67–80; PULSE 97–122; RESP 18–20; TEMP 97.4–97.9; O2SAT 86–95
[2016-09-25] MEDS: INSULIN NovoLIN REGULAR SUPPLEMENTAL SCALE SQ SCH ×4 (06:44→20:11)
[2016-09-25 07:43] LABS: AUTOMATED NEUTROPHIL # 12.2 TH/MM3 (1.8-7.7); BASOPHIL # 0.1 TH/MM3 (0-0.2); BASOPHIL % 0.5 % (0.0-2.0); EOSINOPHIL % 0.1 % (0.0-4.0); HEMATOCRIT 33.2 % (35.0-46.0); LYMPH % 4.4 % (9.0-44.0); LYMPHOCYTE # 0.6 TH/MM3 (1.0-4.8); MEAN CELL VOLUME 86.4 FL (80.0-100.0); MEAN CORPUSCULAR HEMOGLOBIN 28.6 PG (27.0-34.0); MEAN CORPUSCULAR HGB CONC 33.1 % (32.0-36.0); PLATELET COUNT 185 TH/MM3 (150-450); RED BLOOD COUNT 3.84 MIL/MM3 (4.00-5.30); RED CELL DISTRIBUTION WIDTH 18.7 % (11.6-17.2); WHITE BLOOD COUNT 13.4 TH/MM3 (4.0-11.0)
[2016-09-25 07:45] LABS: HEMO FLAGS AUTO DIFF
[2016-09-25 07:59] LABS: BICARBONATE 24.4 MEQ/L (21.0-32.0); POTASSIUM 4.8 MEQ/L (3.5-5.1)
[2016-09-25] MEDS: guaiFENesin E.R. 600 MG TAB PO SCH ×2 (08:21→20:07)
[2016-09-25] MEDS: SULFAMETHOXAZOLE-TRIMETHOPRIM DS 800-160 MG TAB PO SCH ×2 (08:21→20:07)
[2016-09-25] MEDS: predniSONE 20 MG TAB PO SCH ×2 (08:21→20:07)
[2016-09-25] MEDS: PANTOPRAZOLE SOD 40 MG DELAYED RELEASE TAB PO SCH (08:21)
[2016-09-25] MEDS: POLYETHYLENE GLYCOL 17 GM PKG PO SCH (08:21)
[2016-09-25] MEDS: TOLTERODINE TARTRATE 2 MG CAP LA PO SCH (08:22)
[2016-09-25] MEDS: DOCUSATE SODIUM 50 MG/SENNA 8.6 MG TAB PO SCH ×2 (08:22→20:08)
[2016-09-25] MEDS: ATORVASTATIN 80 MG TAB PO SCH (08:22)
[2016-09-25] MEDS: SODIUM CHLORIDE 0.9% FLUSH 10 ML FLUSH IV FLUSH SCH ×2 (08:24→20:08)
[2016-09-25] MEDS: DULoxetine HCl DR 60 MG CAP PO SCH (09:00)
[2016-09-25 09:20] LABS: METAMYELOCYTES 2 % (0-1); NEUTROPHIL # MANUAL DIFF 12.9 TH/MM3 (1.8-7.7); POLYS (SEG NEUTROPHILS) 94 % (16-70); WBC DIFF SAMPLE 100
[2016-09-25 09:21] LABS: PLATELET ESTIMATE SMEAR NORMAL (NORMAL); PLATELET MORPHOLOGY NORMAL (NORMAL); SCAN/DIFF FINAL DIFF MANUAL
--- NOTE | 2016-09-25 12:16 | HHI.PR ---
Subjective Remarks Follow-up for acute respiratory failure with hypoxia secondary to pulmonary fibrosis Patient stated that the Ativan did not help her and made her more agitated. She says she does not want taking medication. She appears very anxious this morning. Patient stated that she was just shift in bed which cause her to have severe respiratory distress. Positive for shortness of breathing. Positive for cough. She remains afebrile. Patient does not feel like she is getting better. Objective Vitals Vital Signs Date Time Temp Pulse Resp B/P Pulse Ox O2 Delivery O2 Flow Rate FiO2 09/25/16 10:37 93 Nasal Cannula 4.00 09/25/16 08:00 97.5 108 20 120/67 95 09/25/16 04:00 97.9 115 18 147/69 86 09/25/16 00:54 112 09/25/16 00:00 97.5 97 18 143/80 93 09/24/16 20:28 90 Nasal Cannula 4.00 Humidified 09/24/16 20:00 97.5 111 18 131/73 90 09/24/16 19:50 95 Nasal Cannula 4.00 09/24/16 16:00 97.4 100 20 119/67 95 I/O 09/24/16 09/24/16 09/24/16 09/25/16 09/25/16 09/25/16 07:00 15:00 23:00 07:00 15:00 23:00 Intake Total 240 ml 240 ml 248 ml Output Total 200 ml 200 ml 0 ml 350 ml Balance 40 ml 40 ml 248 ml -350 ml Intake Oral 240 ml 240 ml 240 ml IV Total 8 ml Output Urine Total 200 ml 200 ml 0 ml 350 ml # Voids 1 # Bowel Movements 1 0 Result Diagram: 09/25/16 0610 09/25/16 0610 Imaging Last Impressions Chest CT 09/21/16 0000 Signed Impressions: Service Date/Time: Wednesday, September 21, 2016 19:53 - CONCLUSION: 1. Overall groundglass opacity has improved over the last month but with a fairly rapid progression to pulmonary fibrosis in the peripheral upper lungs at a rate typically not seen with idiopathic pulmonary fibrosis. They could still be some underlying idiopathic pulmonary fibrosis findings more characteristic in the lower lobes with early honeycombing, traction bronchiectasis and minimal peripheral distribution. The findings are not classic for usual interstitial pneumonitis and may require open lung biopsy for diagnosis. Checo Conner MD Barium Swallow X-Ray 09/21/16 0000 Signed Impressions: Service Date/Time: Wednesday, September 21, 2016 10:48 - CONCLUSION: 1. Small sliding hiatal hernia at the GE junction. 2. No mechanical obstruction is demonstrated. Ha Guardado MD Chest X-Ray 09/12/16 0000 Signed Impressions: Service Date/Time: Monday, September 12, 2016 10:22 - CONCLUSION: Stable chest x-ray with peripheral and lower lung zone predominant interstitial opacities bilaterally. Romel Haas MD Lung Scan-[facility] Nuclear Medicine 08/26/16 0000 Signed Impressions: Service Date/Time: Friday, August 26, 2016 20:26 - CONCLUSION: 1. Low probability for pulmonary embolus. Checo Conner MD CT Angiography 08/26/16 0000 Signed Impressions: Service Date/Time: Friday, August 26, 2016 16:50 - CONCLUSION: 1. Negative for pulmonary embolus. Pulmonary fibrosis as above, not easily classifiable. There is also extensive groundglass opacity with lobular sparing. Differential diagnosis includes sequela of drug reaction or subacute hypersensitivity pneumonitis, atypical usual interstitial pneumonitis, or other causes of alveolitis. Checo Conner MD Objective Remarks GENERAL: Patient was chronically ill and increase respiratory rate after moving. CARDIOVASCULAR: Regular rate and rhythm without murmurs, gallops, or rubs. RESPIRATORY: Bilateral diffuse crackles. No accessory muscle use. GASTROINTESTINAL: Abdomen soft, non-tender, nondistended. MUSCULOSKELETAL: No cyanosis, or edema. BACK: Nontender without obvious deformity. No CVA tenderness. Medications and IVs Current Medications Iohexol 99 ml 99 ml STK-MED ONCE IV Last administered on 08/26/16 19:12; Start 08/26/16 at 19:12; Stop 08/26/16 at 19:13; Status DC Levofloxacin/ Dextrose (Levaquin 500 Mg Premix Inj) 100 ml @ 100 mls/hr ONCE ONCE IV Last administered on 08/26/16 19:22; Start 08/26/16 at 19:15; Stop at 20:14; Status DC Albuterol/ Ipratropium (Duoneb Neb) 1 ampule Q4HR NEB PRN NEB SOB/WHEEZING Last administered on 08/28/16 11:58; Start 08/26/16 at 20:00; Stop 08/28/16 at 12:35; Status DC Budesonide/ Formoterol Fumarate (Symbicort 160-4.5 Inh) 2 puff Q12HR INH Last administered on 08/29/16 09:12; Start 08/26/16 at 21:00; Stop 08/29/16 at 11:48 ; Status DC Guaifenesin 600 mg 600 mg BID PO Last administered on 09/25/16 08:21; Start 08/26/16 at 21:00 Sodium Chloride (NS 1000 ml Inj) 1,000 ml @ 100 mls/hr Q10H IV Last administered on 08/27/16 05:03; Start 08/26/16 at 19:49; Stop 08/27/16 at 14:50 ; Status DC Sodium Chloride (NS Flush) 2 ml UNSCH PRN IV FLUSH FLUSH AFTER USING IV ACCESS Last administered on 09/15/16 01:00; Start 08/26/16 at 20:00 Sodium Chloride (NS Flush) 2 ml BID IV FLUSH Last administered on 09/25/16 08: 24; Start 08/26/16 at 21:00 Ondansetron HCl (Zofran Inj) 4 mg Q6H PRN IVP NAUSEA OR VOMITING Last administered on 09/19/16 22:08; Start 08/26/16 at 20:00 Heparin Sodium (Porcine) (Heparin Inj) 5,000 units Q8H SQ Last administered on 09/16/16 12:57; Start 08/26/16 at 20:00; Stop 09/16/16 at 16:28; Status DC Acetaminophen (Tylenol) 650 mg Q6H PRN PO FEVER/PAIN SCALE 1 TO 2 Last administered on 08/30/16 01:45; Start 08/26/16 at 20:00 Acetaminophen/ Hydrocodone Bitart ([place] 5-325 Mg) 1 tab Q4H PRN PO PAIN SCALE 3 TO 5; Start 08/26/16 at 20:00 Morphine Sulfate (Morphine Inj) 2 mg Q3H PRN IV Pain 6-10; Start 08/26/16 at 20: 00 Senna/Docusate Sodium (Letty-Colace) 1 tab BID PO Last administered on 09/25/16 08:22; Start 08/26/16 at 21:00 Magnesium Hydroxide (Milk Of Magnesia Liq) 30 ml Q12H PRN PO MILD - MODERATE CONSTIPATION; Start 08/26/16 at 20:00 Sennosides (Senokot) 17.2 mg Q12H PRN PO MODERATE - SEVERE CONSTIPATION; Start 08/26/16 at 20:00 Bisacodyl (Dulcolax Supp) 10 mg DAILY PRN RECTAL SEVERE CONSITIPATION; Start at 20:00 Lactulose 30 ml 30 ml DAILY PRN PO SEVERE CONSITIPATION Last administered on 09:06; Start 08/26/16 at 20:00 Levofloxacin/ Dextrose (Levaquin 750 Mg Premix Inj) 150 ml @ 100 mls/hr Q24H IV Last administered on 09/05/16 21:13; Start 08/27/16 at 21:00; Stop at 17:38; Status DC Duloxetine HCl (Cymbalta Dr) 60 mg DAILY PO Last administered on 09/24/16 08:45 ; Start 08/27/16 at 09:00 Atorvastatin Calcium (Lipitor) 80 mg DAILY PO Last administered on 09/25/16 08: 22; Start 08/27/16 at 09:00 Tolterodine Tartrate (Detrol La) 2 mg DAILY PO Last administered on 09/25/16 08 :22; Start 08/27/16 at 09:00 Furosemide (Lasix Inj) 40 mg STAT ONCE IV PUSH Last administered on 08/28/16 10:34; Start 08/28/16 at 10:30; Stop 08/28/16 at 10:31; Status DC Enalaprilat (Vasotec Inj) 1.25 mg Q6H PRN IV SBP> OR = 180, DBP> OR = 100; Start 08/28/16 at 10:30 Albuterol/ Ipratropium (Duoneb Neb) 1 ampule Q4HR NEB NEB Last administered on 08/29/16 10:56; Start 08/28/16 at 16:00; Stop 08/29/16 at 11:48; Status DC Albuterol/ Ipratropium (Duoneb Neb) 1 ampule Q2HR NEB PRN NEB SHORTNESS OF BREATH Last administered on 09/24/16 01:14; Start 08/28/16 at 12:30 Methylprednisolone Sodium Succinate (SoluMEDROL INJ) 60 mg Q6HR IV PUSH Last administered on 08/28/16 12:43; Start 08/28/16 at 12:30; Stop 08/28/16 at 16:28 ; Status DC Dextrose (D50w (Vial) Inj) 50 ml UNSCH PRN IV HYPOGLYCEMIA-SEE COMMENTS; Start 08/28/16 at 12:30 Glucagon (Glucagon Inj) 1 mg UNSCH PRN OTHER HYPOGLYCEMIA-SEE COMMENTS; Start 08/28/16 at 12:30 Insulin Human Regular (NovoLIN R SUPPLEMENTAL SCALE) 1 Q6HR SQ Last administered on 09/01/16 11:58; Start 08/28/16 at 12:30; Stop 09/01/16 at 13:05 ; Status DC Methylprednisolone Sodium Succinate 40 mg 40 mg Q8HR IV Last administered on 05:14; Start 08/28/16 at 22:00; Stop 08/29/16 at 11:48; Status DC Potassium Chloride 100 ml @ 50 mls/hr Q2H PRN IV For Potassium 2.8 - 3.2 mEq/L ; Start 08/28/16 at 16:30; Stop 09/07/16 at 09:04; Status DC Potassium Chloride (KCl 20 Meq Premix Inj) 100 ml @ 50 mls/hr Q2H PRN IV For Potassium 2.8 - 3.2 mEq/L; Start 08/28/16 at 16:30; Stop 09/07/16 at 09:04; Status DC Potassium Bicarb/ Potassium Chloride 50 meq 50 meq UNSCH PRN PO For Potassium 3.3 - 3.5 mEq/L; Start 08/28/16 at 16:30; Stop 09/07/16 at 09:04; Status DC Potassium Chloride 100 ml @ 25 mls/hr UNSCH PRN IV For Potassium 3.3 - 3.5 mEq /L; Start 08/28/16 at 16:30; Stop 09/07/16 at 09:04; Status DC Potassium Chloride 100 ml @ 50 mls/hr Q2H PRN IV For Potassium 3.3 - 3.5 mEq/L ; Start 08/28/16 at 16:30; Stop 09/07/16 at 09:04; Status DC Magnesium Sulfate/ Sodium Chloride (Magnesium Sulfate Inj/NS Inj) 100 ml @ 50 mls/hr UNSCH PRN IV For Magnesium 0.9 - 1.1 mg/dL; Start 08/28/16 at 16:30; Stop 09/07/16 at 09:05; Status DC Magnesium Oxide 800 mg 800 mg UNSCH PRN PO For Magnesium 1.2 - 1.6 mg/dL; Start 08/28/16 at 16:30; Stop 09/07/16 at 09:05; Status DC Magnesium Sulfate/ Sodium Chloride (Magnesium Sulfate Inj/NS Inj) 100 ml @ 50 mls/hr UNSCH PRN IV For Magnesium 1.2 - 1.6 mg/dL; Start 08/28/16 at 16:30; Stop 09/07/16 at 09:05; Status DC Potassium Phosphate 2000 mg 2,000 mg Q4H PRN PO For Phosphorus < 2.5 mg/dL Last administered on 09/06/16t 14:29; Start 08/28/16 at 16:30; Stop 09/07/16 at 09:06; Status DC Sodium Phosphate/ Sodium Chloride (Sodium Phosphate Inj/NS 250 ml Inj) 250 ml @ 42 mls/hr UNSCH PRN IV For Phosphorus < 2.5 mg/dL; Start 08/28/16 at 16:30; Stop 09/07/16 at 09:06; Status DC Potassium Phosphate 2000 mg 2,000 mg UNSCH PRN PO/TUBE SEE LABEL COMMENTS; Start 08/28/16 at 16:30; Stop 09/07/16 at 09:06; Status DC Potassium Phosphate/Sodium Chloride (Potassium Phosphate Inj/NS 250 ml Inj) 260 ml @ 42 mls/hr UNSCH PRN IV SEE LABEL COMMENTS; Start 08/28/16 at 16:30; Stop 09/07/16 at 09:06; Status DC Miscellaneous Information Patient in critical care unit? Ass... [id number] .XX ; Start 08/28/16 at 19:30 Chlorhexidine Gluconate (Chlorhexidine 2% Cloth) 3 pack DAILY@04 TOPICAL Last administered on 09/02/16t 04:00; Start 08/29/16 at 04:00; Stop 09/02/16 at 04:01 ; Status DC Chlorhexidine Gluconate (Chlorhexidine 2% Cloth) 3 pack UNSCH PRN TOPICAL HYGIENIC CARE; Start 08/28/16 at 19:30; Stop 09/02/16 at 19:28; Status DC Albuterol/ Ipratropium (Duoneb Neb) 1 ampule TID NEB NEB Last administered on 09/05/16 07:58; Start 08/29/16 at 14:00; Stop 09/05/16 at 12:37; Status DC Methylprednisolone Sodium Succinate (SoluMEDROL INJ) 60 mg Q8HR IV Last administered on 09/06/16 14:28; Start 08/29/16 at 14:00; Stop 09/06/16 at 17:38 ; Status DC Pantoprazole Sodium (Protonix) 20 mg DAILY PO Last administered on 09/23/16 09: 12; Start 08/29/16 at 11:45; Stop 09/23/16 at 11:47; Status DC Insulin Human Regular (NovoLIN R SUPPLEMENTAL SCALE) 1 ACHS SQ Last administered on 09/24/16 20:19; Start 09/01/16 at 16:00 Polyethylene Glycol (Miralax) 17 gm DAILY PO Last administered on 09/25/16 08: 21; Start 09/02/16 at 09:00 Polyethylene Glycol (Miralax) 17 gm ONCE ONCE PO ; Start 09/01/16 at 13:15; Stop 09/01/16 at 13:16; Status DC Potassium Chloride (KCl) 20 meq ONCE ONCE PO Last administered on 09/03/16 14 :10; Start 09/03/16 at 13:00; Stop 09/03/16 at 13:04; Status DC Furosemide (Lasix Inj) 40 mg ONCE ONCE IV PUSH Last administered on 09/05/16 11:07; Start 09/05/16 at 11:00; Stop 09/05/16 at 11:02; Status DC Furosemide (Lasix Inj) 20 mg BID@,18 IV PUSH ; Start 09/06/16 at 09:00; Stop 09/06/16 at 09:00; Status DC Albuterol/ Ipratropium (Duoneb Neb) 1 ampule BID NEB NEB Last administered on 09/08/16 08:08; Start 09/05/16 at 20:00; Stop 09/08/16 at 12:15; Status DC Furosemide (Lasix Inj) 20 mg DAILY IV PUSH Last administered on 09/08/16 09:23 ; Start 09/06/16 at 09:00; Stop 09/08/16 at 12:15; Status DC Trimethoprim/ Sulfamethoxazole (Bactrim Ds 800-160 Mg) 1 tab Q24H PO Last administered on 09/12/16 13:33; Start 09/05/16 at 13:00; Stop 09/13/16 at 08:38 ; Status DC Methylprednisolone Sodium Succinate (SoluMEDROL INJ) 60 mg Q12H IV Last administered on 09/07/16 02:14; Start 09/07/16 at 02:00; Stop 09/07/16 at 12:57 ; Status DC Methylprednisolone Sodium Succinate (SoluMEDROL INJ) 40 mg Q12H IV Last administered on 09/08/16 03:05; Start 09/07/16 at 14:00; Stop 09/08/16 at 12:15 ; Status DC Prednisone (Deltasone) 30 mg BID PO Last administered on 09/12/16 08:54; Start 09/08/16 at 13:00; Stop 09/12/16 at 13:02; Status DC Albuterol/ Ipratropium (Duoneb Neb) 1 ampule BID NEB NEB Last administered on 09/18/16 10:29; Start 09/10/16 at 20:00; Stop 09/18/16 at 13:08; Status DC Methylprednisolone Sodium Succinate (SoluMEDROL INJ) 60 mg Q12HR IV PUSH Last administered on 09/13/16 08:26; Start 09/12/16 at 14:00; Stop 09/13/16 at 08:38 ; Status DC Methylprednisolone Sodium Succinate (SoluMEDROL INJ) 60 mg Q8H IV PUSH Last administered on 09/16/16 09:04; Start 09/13/16 at 16:00; Stop 09/16/16 at 11:14 ; Status DC Trimethoprim/ Sulfamethoxazole (Bactrim Ds 800-160 Mg) 1 tab BID PO Last administered on 09/23/16 09:12; Start 09/13/16 at 09:00; Stop 09/23/16 at 13:27; Status DC Methylprednisolone Sodium Succinate (SoluMEDROL INJ) 60 mg Q12HR IV PUSH Last administered on 09/19/16 08:58; Start 09/16/16 at 21:00; Stop 09/19/16 at 11:08; Status DC Enoxaparin Sodium (Lovenox Inj) 40 mg Q24H SQ Last administered on 09/19/16 18: 27; Start 09/17/16 at 18:00; Stop 09/21/16 at 15:54; Status DC Prednisone (Deltasone) 40 mg BID PO Last administered on 09/21/16 11:19; Start 09/19/16 at 21:00; Stop 09/21/16 at 15:13; Status DC Enoxaparin Sodium (Lovenox Inj) 40 mg Q24H SQ Last administered on 09/24/16 16: 31; Start 09/21/16 at 16:00 Prednisone (Deltasone) 30 mg BID PO ; Start 09/21/16 at 21:00; Stop 09/21/16 at 21 :00; Status DC Prednisone (Deltasone) 20 mg BID PO Last administered on 09/23/16 09:12; Start 09/21/16 at 21:00; Stop 09/23/16 at 14:47; Status DC Pantoprazole Sodium (Protonix) 40 mg DAILY PO Last administered on 09/25/16 08: 21; Start 09/24/16 at 09:00 Trimethoprim/ Sulfamethoxazole (Bactrim Ds 800-160 Mg) 1 tab QID PO ; Start 09/23 at 18:00; Stop 09/23/16 at 18:00; Status DC Prednisone (Deltasone) 40 mg BID PO Last administered on 09/25/16 08:21; Start 09/23/16 at 21:00 Trimethoprim/ Sulfamethoxazole (Bactrim Ds 800-160 Mg) 2 tab BID PO Last administered on 09/25/16 08:21; Start 09/23/16 at 21:00 Lorazepam (Ativan) 0.5 mg ONCE ONCE PO Last administered on 09/24/16 12:32; Start 09/24/16 at 10:45; Stop 09/24/16 at 10:55; Status DC Lorazepam (Ativan) 0.5 mg Q12H PRN PO anxiety; Start 09/24/16 at 10:45 Date of Removal: Sep 04, 2016 A/P Problem List: (1) Hypoxia ICD Code: R09.02 Status: Acute (2) Bandemia ICD Code: D72.825 Status: Acute (3) Dehydration ICD Code: E86.0 Status: Resolved (4) Breast CA ICD Code: C50.919 Status: Acute (5) HTN (hypertension) ICD Code: I10 Status: Acute (6) Acute respiratory failure ICD Code: J96.00 Status: Resolved Assessment and Plan 76 years old female admitted for Acute hypoxemic respiratory failure- on 6LNC Extensive ground-glass opacities. Ddx: hypersensitivity pneumonitis vs chemotherapy induced pulmonary toxicity/interstitial pneumonitis versus other causes of valvulitis -Repeat CT scan showing resolution of the pneumonitis but now showing interstitial fibrosis. -continue to adjust NC -Duo nebs 3 times a day and as needed dyspnea -On Prednisone 40 mg by mouth twice a day per coverstitch binder. -Continue Bactrim. -Dr. barrientos ff closely along with us -Oxygen weaned down to 4 L but patient is severely symptomatic with minimal movement. Very poor prognosis. Interstitial pulmonary fibrosis -Patient now showing development of pulmonary fibrosis. -She continues to desat with minimal improvement. -Extensive education to diagnosis and prognosis discussed with patient. -Poor prognosis. Palliative care following. Triple positive left breast cancer status post Herceptin scan and Taxol 07/15 weekly chemotherapy Normocytic anemia Leukocytosis Monitor CBC daily. Follow trends Leukocytosis - Due to steroids. Dysphasia - -EGD cancelled due to low 02 saturation- may not tolerate anesthesia -on PPIGI: - speech therapy consult for swallowing evaluation on PPI Dyslipidemia /Stage I diastolic dysfunction/Depression -currently on Lipitor 80 mg by mouth at bedtime for dyslipidemia -2-D echo revealed EF 55%. Stage I diastolic dysfunction. Mild MR. -Continue Cymbalta 60 mg by mouth daily for depression -Continue [place] for pain management Urinary Incontinence- improved -Continue Detrol LA 2 mg by mouth daily Hyper-magnesium -Replace electrolytes as clinically indicated Decondition -PT consulted and working with patient Prophylaxis - GI - Protonix - DVT - SCD/Lovenox- restart- EGD cancelled Discharge Planning Patient continues to be severely symptomatic with minimal movement. Poor prognosis. Palliative care is following. Priscilla Rich MD Sep 25, 2016 12:16
[2016-09-25] MEDS: ENOXAPARIN SODIUM 40 MG/0.4 ML SYRINGE SQ SCH (17:10)
[2016-09-26] VITALS (10 sets, daily range): BP systolic 131–146; BP diastolic 63–81; PULSE 99–119; RESP 20–22; TEMP 97.5–97.8; O2SAT 89–98
[2016-09-26] MEDS: RESP: ALBUTEROL 2.5 MG/IPRATROPIUM 0.5 MG NEB (PRN) NEB (03:22)
[2016-09-26] MEDS: INSULIN NovoLIN REGULAR SUPPLEMENTAL SCALE SQ SCH ×4 (06:04→21:00)
[2016-09-26] MEDS: ATORVASTATIN 80 MG TAB PO SCH (08:10)
[2016-09-26] MEDS: guaiFENesin E.R. 600 MG TAB PO SCH ×2 (08:10→21:05)
[2016-09-26] MEDS: TOLTERODINE TARTRATE 2 MG CAP LA PO SCH (08:10)
[2016-09-26] MEDS: DULoxetine HCl DR 60 MG CAP PO SCH (08:11)
[2016-09-26] MEDS: predniSONE 20 MG TAB PO SCH ×2 (08:11→21:04)
[2016-09-26] MEDS: POLYETHYLENE GLYCOL 17 GM PKG PO SCH (08:11)
[2016-09-26] MEDS: SULFAMETHOXAZOLE-TRIMETHOPRIM DS 800-160 MG TAB PO SCH ×2 (08:11→21:06)
[2016-09-26] MEDS: DOCUSATE SODIUM 50 MG/SENNA 8.6 MG TAB PO SCH ×2 (08:11→21:04)
[2016-09-26] MEDS: PANTOPRAZOLE SOD 40 MG DELAYED RELEASE TAB PO SCH (08:11)
[2016-09-26] MEDS: SODIUM CHLORIDE 0.9% FLUSH 10 ML FLUSH IV FLUSH SCH ×2 (08:20→21:00)
[2016-09-26 10:03] LABS: BICARBONATE 27.4 MEQ/L (21.0-32.0); POTASSIUM 4.8 MEQ/L (3.5-5.1)
--- NOTE | 2016-09-26 11:16 | HHI.PR ---
Subjective Remarks Follow-up for restricted failure with hypoxia secondary to interstitial pulmonary fibrosis Patient continues to be severely symptomatic with minimal movement. Shortness of breathing is severe with minimal movement. She feels like she is not getting better. Her nurse is at bedside and stated that patient had more questions about hospice. I explained to patient again about hospice. She stated that she will talk to her in regards to hospice and let me know her decision. Objective Vitals Vital Signs Date Time Temp Pulse Resp B/P Pulse Ox O2 Delivery O2 Flow Rate FiO2 09/26/16 08:00 97.7 107 22 131/80 93 09/26/16 06:20 97.7 103 22 145/75 96 09/26/16 03:23 96 Nasal Cannula 5.00 09/26/16 01:30 97.8 100 20 146/81 92 09/25/16 20:15 Nasal Cannula 4.00 Humidified 09/25/16 20:00 102 09/25/16 18:45 97.5 111 20 146/79 88 09/25/16 16:00 97.7 122 20 163/79 89 09/25/16 12:00 97.4 114 20 117/70 89 I/O 09/25/16 09/25/16 09/25/16 09/26/16 09/26/16 09/26/16 07:00 15:00 23:00 07:00 15:00 23:00 Intake Total 248 ml 6 ml Output Total 0 ml 350 ml 300 ml Balance 248 ml -350 ml -300 ml 6 ml Intake Oral 240 ml IV Total 8 ml 6 ml Output Urine Total 0 ml 350 ml 300 ml # Voids 2 Result Diagram: 09/25/16 0610 09/26/16 0826 Objective Remarks GENERAL: Patient was chronically ill with increase RR. CARDIOVASCULAR: Regular rate and rhythm without murmurs, gallops, or rubs. RESPIRATORY: Bilateral diffuse crackles. No accessory muscle use. GASTROINTESTINAL: Abdomen soft, non-tender, nondistended. MUSCULOSKELETAL: No cyanosis, or edema. BACK: Nontender without obvious deformity. No CVA tenderness. Medications and IVs Current Medications Iohexol 99 ml 99 ml STK-MED ONCE IV Last administered on 08/26/16t 19:12; Start 08/26/16 at 19:12; Stop 08/26/16 at 19:13; Status DC Levofloxacin/ Dextrose (Levaquin 500 Mg Premix Inj) 100 ml @ 100 mls/hr ONCE ONCE IV Last administered on 08/26/16 19:22; Start 08/26/16 at 19:15; Stop at 20:14; Status DC Albuterol/ Ipratropium (Duoneb Neb) 1 ampule Q4HR NEB PRN NEB SOB/WHEEZING Last administered on 08/28/16 11:58; Start 08/26/16 at 20:00; Stop 08/28/16 at 12:35; Status DC Budesonide/ Formoterol Fumarate (Symbicort 160-4.5 Inh) 2 puff Q12HR INH Last administered on 08/29/16 09:12; Start 08/26/16 at 21:00; Stop 08/29/16 at 11:48 ; Status DC Guaifenesin 600 mg 600 mg BID PO Last administered on 09/26/16 08:10; Start at 21:00 Sodium Chloride (NS 1000 ml Inj) 1,000 ml @ 100 mls/hr Q10H IV Last administered on 08/27/16 05:03; Start 08/26/16 at 19:49; Stop 08/27/16 at 14:50 ; Status DC Sodium Chloride (NS Flush) 2 ml UNSCH PRN IV FLUSH FLUSH AFTER USING IV ACCESS Last administered on 09/15/16 01:00; Start 08/26/16 at 20:00 Sodium Chloride (NS Flush) 2 ml BID IV FLUSH Last administered on 09/26/16 08: 20; Start 08/26/16 at 21:00 Ondansetron HCl (Zofran Inj) 4 mg Q6H PRN IVP NAUSEA OR VOMITING Last administered on 09/19/16 22:08; Start 08/26/16 at 20:00 Heparin Sodium (Porcine) (Heparin Inj) 5,000 units Q8H SQ Last administered on 09/16/16 12:57; Start 08/26/16 at 20:00; Stop 09/16/16 at 16:28; Status DC Acetaminophen (Tylenol) 650 mg Q6H PRN PO FEVER/PAIN SCALE 1 TO 2 Last administered on 08/30/16 01:45; Start 08/26/16 at 20:00 Acetaminophen/ Hydrocodone Bitart ([place] 5-325 Mg) 1 tab Q4H PRN PO PAIN SCALE 3 TO 5; Start 08/26/16 at 20:00 Morphine Sulfate (Morphine Inj) 2 mg Q3H PRN IV Pain 6-10; Start 08/26/16 at 20: 00 Senna/Docusate Sodium (Letty-Colace) 1 tab BID PO Last administered on 09/25/16 08:22; Start 08/26/16 at 21:00 Magnesium Hydroxide (Milk Of Magnesia Liq) 30 ml Q12H PRN PO MILD - MODERATE CONSTIPATION; Start 08/26/16 at 20:00 Sennosides (Senokot) 17.2 mg Q12H PRN PO MODERATE - SEVERE CONSTIPATION; Start 08/26/16 at 20:00 Bisacodyl (Dulcolax Supp) 10 mg DAILY PRN RECTAL SEVERE CONSITIPATION; Start at 20:00 Lactulose 30 ml 30 ml DAILY PRN PO SEVERE CONSITIPATION Last administered on 09:06; Start 08/26/16 at 20:00 Levofloxacin/ Dextrose (Levaquin 750 Mg Premix Inj) 150 ml @ 100 mls/hr Q24H IV Last administered on 09/05/16 21:13; Start 08/27/16 at 21:00; Stop at 17:38; Status DC Duloxetine HCl (Cymbalta Dr) 60 mg DAILY PO Last administered on 09/26/16 08: 11; Start 08/27/16 at 09:00 Atorvastatin Calcium (Lipitor) 80 mg DAILY PO Last administered on 09/26/16 08 :10; Start 08/27/16 at 09:00 Tolterodine Tartrate (Detrol La) 2 mg DAILY PO Last administered on 09/26/16 08:10; Start 08/27/16 at 09:00 Furosemide (Lasix Inj) 40 mg STAT ONCE IV PUSH Last administered on 08/28/16 10:34; Start 08/28/16 at 10:30; Stop 08/28/16 at 10:31; Status DC Enalaprilat (Vasotec Inj) 1.25 mg Q6H PRN IV SBP> OR = 180, DBP> OR = 100; Start 08/28/16 at 10:30 Albuterol/ Ipratropium (Duoneb Neb) 1 ampule Q4HR NEB NEB Last administered on 08/29/16 10:56; Start 08/28/16 at 16:00; Stop 08/29/16 at 11:48; Status DC Albuterol/ Ipratropium (Duoneb Neb) 1 ampule Q2HR NEB PRN NEB SHORTNESS OF BREATH Last administered on 09/26/16 03:22; Start 08/28/16 at 12:30 Methylprednisolone Sodium Succinate (SoluMEDROL INJ) 60 mg Q6HR IV PUSH Last administered on 08/28/16 12:43; Start 08/28/16 at 12:30; Stop 08/28/16 at 16:28 ; Status DC Dextrose (D50w (Vial) Inj) 50 ml UNSCH PRN IV HYPOGLYCEMIA-SEE COMMENTS; Start 08/28/16 at 12:30 Glucagon (Glucagon Inj) 1 mg UNSCH PRN OTHER HYPOGLYCEMIA-SEE COMMENTS; Start 08/28/16 at 12:30 Insulin Human Regular (NovoLIN R SUPPLEMENTAL SCALE) 1 Q6HR SQ Last administered on 09/01/16 11:58; Start 08/28/16 at 12:30; Stop 09/01/16 at 13:05 ; Status DC Methylprednisolone Sodium Succinate 40 mg 40 mg Q8HR IV Last administered on 05:14; Start 08/28/16 at 22:00; Stop 08/29/16 at 11:48; Status DC Potassium Chloride 100 ml @ 50 mls/hr Q2H PRN IV For Potassium 2.8 - 3.2 mEq/L ; Start 08/28/16 at 16:30; Stop 09/07/16 at 09:04; Status DC Potassium Chloride (KCl 20 Meq Premix Inj) 100 ml @ 50 mls/hr Q2H PRN IV For Potassium 2.8 - 3.2 mEq/L; Start 08/28/16 at 16:30; Stop 09/07/16 at 09:04; Status DC Potassium Bicarb/ Potassium Chloride 50 meq 50 meq UNSCH PRN PO For Potassium 3.3 - 3.5 mEq/L; Start 08/28/16 at 16:30; Stop 09/07/16 at 09:04; Status DC Potassium Chloride 100 ml @ 25 mls/hr UNSCH PRN IV For Potassium 3.3 - 3.5 mEq /L; Start 08/28/16 at 16:30; Stop 09/07/16 at 09:04; Status DC Potassium Chloride 100 ml @ 50 mls/hr Q2H PRN IV For Potassium 3.3 - 3.5 mEq/L ; Start 08/28/16 at 16:30; Stop 09/07/16 at 09:04; Status DC Magnesium Sulfate/ Sodium Chloride (Magnesium Sulfate Inj/NS Inj) 100 ml @ 50 mls/hr UNSCH PRN IV For Magnesium 0.9 - 1.1 mg/dL; Start 08/28/16 at 16:30; Stop 09/07/16 at 09:05; Status DC Magnesium Oxide 800 mg 800 mg UNSCH PRN PO For Magnesium 1.2 - 1.6 mg/dL; Start 08/28/16 at 16:30; Stop 09/07/16 at 09:05; Status DC Magnesium Sulfate/ Sodium Chloride (Magnesium Sulfate Inj/NS Inj) 100 ml @ 50 mls/hr UNSCH PRN IV For Magnesium 1.2 - 1.6 mg/dL; Start 08/28/16 at 16:30; Stop 09/07/16 at 09:05; Status DC Potassium Phosphate 2000 mg 2,000 mg Q4H PRN PO For Phosphorus < 2.5 mg/dL Last administered on 09/06/16t 14:29; Start 08/28/16 at 16:30; Stop 09/07/16 at 09:06; Status DC Sodium Phosphate/ Sodium Chloride (Sodium Phosphate Inj/NS 250 ml Inj) 250 ml @ 42 mls/hr UNSCH PRN IV For Phosphorus < 2.5 mg/dL; Start 08/28/16 at 16:30; Stop 09/07/16 at 09:06; Status DC Potassium Phosphate 2000 mg 2,000 mg UNSCH PRN PO/TUBE SEE LABEL COMMENTS; Start 08/28/16 at 16:30; Stop 09/07/16 at 09:06; Status DC Potassium Phosphate/Sodium Chloride (Potassium Phosphate Inj/NS 250 ml Inj) 260 ml @ 42 mls/hr UNSCH PRN IV SEE LABEL COMMENTS; Start 08/28/16 at 16:30; Stop 09/07/16 at 09:06; Status DC Miscellaneous Information Patient in critical care unit? Ass... [id number] .XX ; Start 08/28/16 at 19:30 Chlorhexidine Gluconate (Chlorhexidine 2% Cloth) 3 pack DAILY@04 TOPICAL Last administered on 09/02/16 04:00; Start 08/29/16 at 04:00; Stop 09/02/16 at 04:01 ; Status DC Chlorhexidine Gluconate (Chlorhexidine 2% Cloth) 3 pack UNSCH PRN TOPICAL HYGIENIC CARE; Start 08/28/16 at 19:30; Stop 09/02/16 at 19:28; Status DC Albuterol/ Ipratropium (Duoneb Neb) 1 ampule TID NEB NEB Last administered on 09/05/16 07:58; Start 08/29/16 at 14:00; Stop 09/05/16 at 12:37; Status DC Methylprednisolone Sodium Succinate (SoluMEDROL INJ) 60 mg Q8HR IV Last administered on 09/06/16 14:28; Start 08/29/16 at 14:00; Stop 09/06/16 at 17:38 ; Status DC Pantoprazole Sodium (Protonix) 20 mg DAILY PO Last administered on 09/23/16 09: 12; Start 08/29/16 at 11:45; Stop 09/23/16 at 11:47; Status DC Insulin Human Regular (NovoLIN R SUPPLEMENTAL SCALE) 1 ACHS SQ Last administered on 09/25/16 20:11; Start 09/01/16 at 16:00 Polyethylene Glycol (Miralax) 17 gm DAILY PO Last administered on 09/25/16 08: 21; Start 09/02/16 at 09:00 Polyethylene Glycol (Miralax) 17 gm ONCE ONCE PO ; Start 09/01/16 at 13:15; Stop 09/01/16 at 13:16; Status DC Potassium Chloride (KCl) 20 meq ONCE ONCE PO Last administered on 09/03/16 14 :10; Start 09/03/16 at 13:00; Stop 09/03/16 at 13:04; Status DC Furosemide (Lasix Inj) 40 mg ONCE ONCE IV PUSH Last administered on 09/05/16 11:07; Start 09/05/16 at 11:00; Stop 09/05/16 at 11:02; Status DC Furosemide (Lasix Inj) 20 mg BID@09,18 IV PUSH ; Start 09/06/16 at 09:00; Stop 09/06/16 at 09:00; Status DC Albuterol/ Ipratropium (Duoneb Neb) 1 ampule BID NEB NEB Last administered on 09/08/16 08:08; Start 09/05/16 at 20:00; Stop 09/08/16 at 12:15; Status DC Furosemide (Lasix Inj) 20 mg DAILY IV PUSH Last administered on 09/08/16 09:23 ; Start 09/06/16 at 09:00; Stop 09/08/16 at 12:15; Status DC Trimethoprim/ Sulfamethoxazole (Bactrim Ds 800-160 Mg) 1 tab Q24H PO Last administered on 09/12/16 13:33; Start 09/05/16 at 13:00; Stop 09/13/16 at 08:38 ; Status DC Methylprednisolone Sodium Succinate (SoluMEDROL INJ) 60 mg Q12H IV Last administered on 09/07/16 02:14; Start 09/07/16 at 02:00; Stop 09/07/16 at 12:57 ; Status DC Methylprednisolone Sodium Succinate (SoluMEDROL INJ) 40 mg Q12H IV Last administered on 09/08/16 03:05; Start 09/07/16 at 14:00; Stop 09/08/16 at 12:15 ; Status DC Prednisone (Deltasone) 30 mg BID PO Last administered on 09/12/16 08:54; Start 09/08/16 at 13:00; Stop 09/12/16 at 13:02; Status DC Albuterol/ Ipratropium (Duoneb Neb) 1 ampule BID NEB NEB Last administered on 09/18/16 10:29; Start 09/10/16 at 20:00; Stop 09/18/16 at 13:08; Status DC Methylprednisolone Sodium Succinate (SoluMEDROL INJ) 60 mg Q12HR IV PUSH Last administered on 09/13/16 08:26; Start 09/12/16 at 14:00; Stop 09/13/16 at 08:38 ; Status DC Methylprednisolone Sodium Succinate (SoluMEDROL INJ) 60 mg Q8H IV PUSH Last administered on 09/16/16 09:04; Start 09/13/16 at 16:00; Stop 09/16/16 at 11:14 ; Status DC Trimethoprim/ Sulfamethoxazole (Bactrim Ds 800-160 Mg) 1 tab BID PO Last administered on 09/23/16 09:12; Start 09/13/16 at 09:00; Stop 09/23/16 at 13:27; Status DC Methylprednisolone Sodium Succinate (SoluMEDROL INJ) 60 mg Q12HR IV PUSH Last administered on 09/19/16 08:58; Start 09/16/16 at 21:00; Stop 09/19/16 at 11:08; Status DC Enoxaparin Sodium (Lovenox Inj) 40 mg Q24H SQ Last administered on 09/19/16 18: 27; Start 09/17/16 at 18:00; Stop 09/21/16 at 15:54; Status DC Prednisone (Deltasone) 40 mg BID PO Last administered on 09/21/16 11:19; Start 09/19/16 at 21:00; Stop 09/21/16 at 15:13; Status DC Enoxaparin Sodium (Lovenox Inj) 40 mg Q24H SQ Last administered on 09/25/16 17: 10; Start 09/21/16 at 16:00 Prednisone (Deltasone) 30 mg BID PO ; Start 09/21/16 at 21:00; Stop 09/21/16 at 21 :00; Status DC Prednisone (Deltasone) 20 mg BID PO Last administered on 09/23/16 09:12; Start 09/21/16 at 21:00; Stop 09/23/16 at 14:47; Status DC Pantoprazole Sodium (Protonix) 40 mg DAILY PO Last administered on 09/26/16 08 :11; Start 09/24/16 at 09:00 Trimethoprim/ Sulfamethoxazole (Bactrim Ds 800-160 Mg) 1 tab QID PO ; Start 09/23 at 18:00; Stop 09/23/16 at 18:00; Status DC Prednisone (Deltasone) 40 mg BID PO Last administered on 09/26/16 08:11; Start 09/23/16 at 21:00 Trimethoprim/ Sulfamethoxazole (Bactrim Ds 800-160 Mg) 2 tab BID PO Last administered on 09/26/16 08:11; Start 09/23/16 at 21:00 Lorazepam (Ativan) 0.5 mg ONCE ONCE PO Last administered on 09/24/16t 12:32; Start 09/24/16 at 10:45; Stop 09/24/16 at 10:55; Status DC Lorazepam (Ativan) 0.5 mg Q12H PRN PO anxiety; Start 09/24/16 at 10:45; Stop 09/25/16 at 12:12; Status DC Date of Removal: Sep 04, 2016 A/P Problem List: (1) Hypoxia ICD Code: R09.02 Status: Acute (2) Bandemia ICD Code: D72.825 Status: Acute (3) Dehydration ICD Code: E86.0 Status: Resolved (4) Breast CA ICD Code: C50.919 Status: Acute (5) HTN (hypertension) ICD Code: I10 Status: Acute (6) Acute respiratory failure ICD Code: J96.00 Status: Resolved Assessment and Plan 76 years old female admitted for Acute hypoxemic respiratory failure- on 6LNC Extensive ground-glass opacities. Ddx: hypersensitivity pneumonitis vs chemotherapy induced pulmonary toxicity/interstitial pneumonitis versus other causes of valvulitis -Repeat CT scan showing resolution of the pneumonitis but now showing interstitial fibrosis. 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 -Continue Bactrim. -Oxygen back up to 5 L and she continued to be severely symptomatic. Poor prognosis. -Continue management per Dr. barrientos. Interstitial pulmonary fibrosis -Patient now showing development of pulmonary fibrosis. -She continues to desat with minimal improvement. -Extensive education to diagnosis and prognosis discussed with patient. -Poor prognosis. Palliative care following. Triple positive left breast cancer status post Herceptin scan and Taxol 07/15 weekly chemotherapy Normocytic anemia Leukocytosis Monitor CBC daily. Follow trends Leukocytosis - Due to steroids. Dysphasia - -EGD cancelled due to low 02 saturation- may not tolerate anesthesia -on PPIGI: - speech therapy consult for swallowing evaluation on PPI Dyslipidemia /Stage I diastolic dysfunction/Depression -currently on Lipitor 80 mg by mouth at bedtime for dyslipidemia -2-D echo revealed EF 55%. Stage I diastolic dysfunction. Mild MR. -Continue Cymbalta 60 mg by mouth daily for depression -Continue [place] for pain management Urinary Incontinence- improved -Continue Detrol LA 2 mg by mouth daily Hyper-magnesium -Replace electrolytes as clinically indicated Decondition -PT consulted and working with patient Prophylaxis - GI - Protonix - DVT - SCD/Lovenox- restart- EGD cancelled Discharge Planning Patient continues to be severely symptomatic with minimal movement. Poor prognosis. Patient will speak to her today about hospice. She stated that she will let the nurse know if she decides to go with hospice. Priscilla Rich MD Sep 26, 2016 11:16
--- NOTE | 2016-09-26 11:19 | PD.ONC.PN ---
Subjective Subjective Remarks Afebrile overnight. Patient resting in bed. She says she is tired. Breathing about the same. Objective Data Date Time Temp Pulse Resp B/P Pulse Ox O2 Delivery O2 Flow Rate FiO2 09/26/16 08:00 97.7 107 22 131/80 93 09/26/16 06:20 97.7 103 22 145/75 96 09/26/16 03:23 96 Nasal Cannula 5.00 09/26/16 01:30 97.8 100 20 146/81 92 09/25/16 20:15 Nasal Cannula 4.00 Humidified 09/25/16 20:00 102 09/25/16 18:45 97.5 111 20 146/79 88 09/25/16 16:00 97.7 122 20 163/79 89 09/25/16 12:00 97.4 114 20 117/70 89 09/26/16 09/26/16 09/26/16 07:00 15:00 23:00 Intake Total 6 ml Balance 6 ml Result Diagram: 09/25/16 0610 09/26/16 0826 Laboratory Results Laboratory Tests Test 09/26/16 08:26 Sodium Level 135 MEQ/L Potassium Level 4.8 MEQ/L Chloride Level 100 MEQ/L Carbon Dioxide Level 27.4 MEQ/L Anion Gap 8 MEQ/L Blood Urea Nitrogen 21 MG/DL Creatinine 0.72 MG/DL Estimat Glomerular Filtration 79 ML/MIN Rate Random Glucose 117 MG/DL Calcium Level 9.2 MG/DL Administered Medications Medications (Trade) Dose Ordered Sig/Aurelia Route PRN Reason Start Time Stop Time Status Last Admin Dose Admin Guaifenesin (Mucinex Er) 600 mg BID PO 08/26/16 21:00 09/26/16 08:10 Sodium Chloride (NS Flush) 2 ml UNSCH PRN IV FLUSH FLUSH AFTER USING IV ACCESS 08/26/16 20:00 09/15/16 01:00 Sodium Chloride (NS Flush) 2 ml BID IV FLUSH 08/26/16 21:00 09/26/16 08:20 Ondansetron HCl (Zofran Inj) 4 mg Q6H PRN IVP NAUSEA OR VOMITING 08/26/16 20:00 09/19/16 22:08 Acetaminophen (Tylenol) 650 mg Q6H PRN PO FEVER/PAIN SCALE 1 TO 2 08/26/16 20:00 08/30/16 01:45 Senna/Docusate Sodium (Letty-Colace) 1 tab BID PO 08/26/16 21:00 09/25/16 08:22 Lactulose (Lactulose Liq) 30 ml DAILY PRN PO SEVERE CONSITIPATION 08/26/16 20:00 09/01/16 09:06 Duloxetine HCl (Cymbalta Dr) 60 mg DAILY PO 08/27/16 09:00 09/26/16 08:11 Atorvastatin Calcium (Lipitor) 80 mg DAILY PO 08/27/16 09:00 09/26/16 08:10 Tolterodine Tartrate (Detrol La) 2 mg DAILY PO 08/27/16 09:00 09/26/16 08:10 Insulin Human Regular (NovoLIN R SUPPLEMENTAL SCALE) 1 ACHS SQ 09/01/16 16:00 09/25/16 20:11 Polyethylene Glycol (Miralax) 17 gm DAILY PO 09/02/16 09:00 09/25/16 08:21 Enoxaparin Sodium (Lovenox Inj) 40 mg Q24H SQ 09/21/16 16:00 09/25/16 17:10 Pantoprazole Sodium (Protonix) 40 mg DAILY PO 09/24/16 09:00 09/26/16 08:11 Prednisone (Deltasone) 40 mg BID PO 09/23/16 21:00 09/26/16 08:11 Trimethoprim/ Sulfamethoxazole (Bactrim Ds 800-160 Mg) 2 tab BID PO 09/23/16 21:00 09/26/16 08:11 Objective Remarks GENERAL: Elderly female sitting up in bed, appears fatigued, dyspneic. SKIN: Warm and dry. HEAD: Normocephalic. EYES: No injection or drainage. NECK: Supple, trachea midline. CARDIOVASCULAR: Regular rate and rhythm RESPIRATORY: diminished at bases, scattered rhonchi. On 5L O2 via NC GASTROINTESTINAL: Abdomen soft, non-tender, nondistended. EXTREMITIES: No cyanosis NEUROLOGICAL: awake and alert, normal speech. no obvious focal deficit. Assessment/Plan Problem List: (1) Hypoxia Status: Acute Plan: 09/26: palliative care following patient. continue steroids per pulmonology. --ECHO = no decrease LVEF --pulmonary toxicity either due to Herceptin or Taxol --dr. Hammond, pulmonology following -- CT on 09/21 shows overall improvement of groundglass opacity (2) Breast CA Status: Acute Plan: no further chemo. --started on weekly Herceptin and Taxol chemotherapy on July 15. Assessment 76y/o with triple positive left breast cancer admitted with respiratory insufficiency. Attending Statement Continues to have Shortness of breath on exertion Complaining of weakness I have discussed with Dr. Hammond. He thinks that the patient now has the pulmonary fibrosis He does not iThink She will recover from this I haven't discussed the patient and her at the bedside Prognosis is very poor Palliative care input is noted will follow Josey Gandara Sep 26, 2016 11:19 Tiburcio Kirk MD Sep 26, 2016 22:52
[2016-09-26] MEDS ORDERED: PILL SPLITTER OTHER PRN (13:15)
[2016-09-26] MEDS: ALPRAZolam 0.25 MG TAB PO PRN ×2 (13:31→21:05)
--- NOTE | 2016-09-26 13:42 | HHI.HCPN ---
Reason for visit a. To assist with evaluation and management of symptoms including: Shortness of breath and debility. b. To assist medical decision maker(s) with: better understanding of current medical conditions; weighing benefits/burdens of medical treatment options; making medical treatment decisions. . Subjective/Interval History Mrs. Valverde is a 76 y/o female with a medical history of triple positive left breast cancer diagnosed proximately 3 months ago. She underwent left breast lumpectomy and sentinel lymph node sampling which were negative. The patient was started on weekly Herceptin and Taxol chemotherapy on July 15, 2016. Patient tolerating well until the first week of August when she started experiencing increased shortness of breath. Patient was found with diffuse groundglass densities on CT scan, likely secondary to drug reaction either to Taxol or Herceptin. Patient remained with profound dyspnea and oxygen saturation on physical exertion. No plan for further chemotherapy at this time secondary to complications. Palliative care was consulted for further clarifications of goals of care given increased symptom burden. Patient seen in her room, she was sitting up in her bed in moderate distress secondary to increased work of breathing. Tearful, sad. Endorsing profound dyspnea at rest and on minimal exertion. Only able to verbalize a few words at a time secondary to profound dyspnea. Endorsing mild nausea, no vomiting. Has not been able to sleep well secondary to shortness of breath. Most recent laboratory 09/25/16 indicating WBC 13.4, Hgb 11.0, platelet count 185. Laboratory 09/26/16 showing sodium 135, potassium 4.8, BUN/creatinine 21/0.72. New imaging for review. No family at bedside. Patient reports feeling tired, does not known if she will be able to "hold on for much longer". Patient feels that her clinical condition has worsened, has been hospitalized for over 30 days. Patient tells me that she just had a conversation with pulmonology, Dr. Hammond. Xanax added for anxiety/shortness of breath. Patient asking appropriate questions regarding hospice, she verbalized that she has been considering hospice over the weekend secondary to worsening clinical condition. Patient was encouraged to continue goals of care conversation with her and children. Ongoing emotional support and active listening provided. Palliative care will continue to follow-up. . Family/friend interactions No family at bedside. . Advance Directives Living Will: Never completed Health Care Surrogate: Never completed Durable Power of Apartment House Manager: Never completed Advance Directive Specifics Health Care Surrogate(s): No advance directives completed. [place] law, healthcare proxy decision maker is patient's . . Documented care wishes: No living will completed. . Significant change in goals: Alt code/ACLS drugs only. Continue conservative management for now, patient considering hospice at this time. . Objective Vital Signs Date Time Temp Pulse Resp B/P Pulse Ox O2 Delivery O2 Flow Rate FiO2 09/26/16 12:00 97.6 119 22 134/69 90 09/26/16 08:00 97.7 107 22 131/80 93 09/26/16 08:00 Nasal Cannula 4.50 Humidified 09/26/16 06:20 97.7 103 22 145/75 96 09/26/16 03:23 96 Nasal Cannula 5.00 09/26/16 01:30 97.8 100 20 146/81 92 09/25/16 20:15 Nasal Cannula 4.00 Humidified 09/25/16 20:00 102 09/25/16 18:45 97.5 111 20 146/79 88 09/25/16 16:00 97.7 122 20 163/79 89 Intake & Output 09/26/16 09/26/16 07:00 19:00 Intake Total 6 ml Output Total 300 ml Balance -294 ml IV Total 6 ml Output Urine Total 300 ml # Voids 1 Physical Exam CONSTITUTIONAL/GENERAL: This is an adequately nourished patient in moderate distress secondary to increased work of breathing. TUBES/LINES/DRAINS: PIV's, nasal cannula. SKIN: No jaundice, rashes, or lesions. Ecchymoses on upper extremities. No wounds seen anteriorly. Skin temperature appropriate. Not diaphoretic. HEAD: Atraumatic. Normocephalic. Alopecia. EYES: Pupils equal and round and reactive. Extraocular motions intact. No scleral icterus. No injection or drainage. ENT: Hearing grossly normal. Nose without bleeding or purulent drainage. Chapped lips. NECK: Trachea midline. Supple, nontender. CARDIOVASCULAR: Tachycardic, without murmurs, gallops, or rubs. No JVD. Peripheral pulses symmetric. RESPIRATORY/CHEST: Symmetric, increased work of breathing at rest and on minimal exertion. diminished to auscultation. Only able to verbalize 1 to 2 words at a time secondary to profound dyspnea. GASTROINTESTINAL: Abdomen soft, non-tender, nondistended. No guarding. Bowel sounds present. GENITOURINARY: Without palpable bladder distension. MUSCULOSKELETAL: Extremities without clubbing, cyanosis. Trace edema to bilateral lower extremities. NEUROLOGICAL: Awake and alert. Motor and sensory grossly within normal limits. Follows commands. Cognitively sharp. Moves all extremities. PSYCHIATRIC: Anxious, tearful. . Diagnostic Tests Laboratory Laboratory Tests Test 09/23/16 09/24/16 09/25/16 09/26/16 18:40 06:32 06:10 08:26 White Blood Count 16.7 TH/MM3 13.4 TH/MM3 (4.0-11.0) (4.0-11.0) Red Blood Count 3.88 MIL/MM3 3.84 MIL/MM3 (4.00-5.30) (4.00-5.30) Hemoglobin 11.1 GM/DL 11.0 GM/DL (11.6-15.3) (11.6-15.3) Hematocrit 33.4 % 33.2 % (35.0-46.0) (35.0-46.0) Mean Corpuscular Volume 86.0 FL 86.4 FL (80.0-100.0) (80.0-100.0) Mean Corpuscular Hemoglobin 28.5 PG 28.6 PG (27.0-34.0) (27.0-34.0) Mean Corpuscular Hemoglobin 33.2 % 33.1 % Concent (32.0-36.0) (32.0-36.0) Red Cell Distribution Width 18.3 % 18.7 % (11.6-17.2) (11.6-17.2) Platelet Count 203 TH/MM3 185 TH/MM3 (150-450) (150-450) Mean Platelet Volume 9.1 FL 9.0 FL (7.0-11.0) (7.0-11.0) Neutrophils (%) (Auto) 92.5 % 91.0 % (16.0-70.0) (16.0-70.0) Lymphocytes (%) (Auto) 3.8 % 4.4 % (9.0-44.0) (9.0-44.0) Monocytes (%) (Auto) 3.2 % (0.0-8.0) 4.0 % (0.0-8.0) Eosinophils (%) (Auto) 0.4 % (0.0-4.0) 0.1 % (0.0-4.0) Basophils (%) (Auto) 0.1 % (0.0-2.0) 0.5 % (0.0-2.0) Neutrophils # (Auto) 15.4 TH/MM3 12.2 TH/MM3 (1.8-7.7) (1.8-7.7) Lymphocytes # (Auto) 0.6 TH/MM3 0.6 TH/MM3 (1.0-4.8) (1.0-4.8) Monocytes # (Auto) 0.5 TH/MM3 0.5 TH/MM3 (0-0.9) (0-0.9) Eosinophils # (Auto) 0.1 TH/MM3 0.0 TH/MM3 (0-0.4) (0-0.4) Basophils # (Auto) 0.0 TH/MM3 0.1 TH/MM3 (0-0.2) (0-0.2) CBC Comment AUTO DIFF AUTO DIFF Differential Comment AUTO DIFF FINAL DIFF CONFIRMED MANUAL Sodium Level 133 MEQ/L 133 MEQ/L 135 MEQ/L 135 MEQ/L (136-145) (136-145) (136-145) (136-145) Potassium Level 4.4 MEQ/L 4.8 MEQ/L 4.8 MEQ/L 4.8 MEQ/L (3.5-5.1) (3.5-5.1) (3.5-5.1) (3.5-5.1) Chloride Level 100 MEQ/L 101 MEQ/L 101 MEQ/L 100 MEQ/L (98-107) (98-107) (98-107) (98-107) Carbon Dioxide Level 25.9 MEQ/L 25.8 MEQ/L 24.4 MEQ/L 27.4 MEQ/L (21.0-32.0) (21.0-32.0) (21.0-32.0) (21.0-32.0) Anion Gap 7 MEQ/L (5-15) 6 MEQ/L (5-15) 10 MEQ/L (5-15) 8 MEQ/L (5-15) Blood Urea Nitrogen 17 MG/DL (7-18) 18 MG/DL (7-18) 22 MG/DL (7-18) 21 MG/DL (7- 18) Creatinine 0.74 MG/DL 0.67 MG/DL 0.69 MG/DL 0.72 MG/DL (0.50-1.00) (0.50-1.00) (0.50-1.00) (0.50-1.00) Estimat Glomerular Filtration 76 ML/MIN (>89) 85 ML/MIN (>89) 82 ML/MIN (>89) 79 ML/MIN (>89) Rate Random Glucose 161 MG/DL 139 MG/DL 122 MG/DL 117 MG/DL (74-106) (74-106) (74-106) (74-106) Calcium Level 8.9 MG/DL 8.9 MG/DL 9.0 MG/DL 9.2 MG/DL (8.5-10.1) (8.5-10.1) (8.5-10.1) (8.5-10.1) Differential Total Cells 100 Counted Neutrophils % (Manual) 94 % (16-70) Lymphocytes % 1 % (9-44) Monocytes % 3 % (0-8) Neutrophils # (Manual) 12.9 TH/MM3 (1.8-7.7) Metamyelocytes 2 % (0-1) Platelet Estimate NORMAL (NORMAL) Platelet Morphology Comment NORMAL (NORMAL) Red Cell Morphology Comment NORMAL (NORMAL) Result Diagram: 09/25/16 0610 09/26/16 0857 Assessment and Plan Disease Oriented Problem List: (1) Acute respiratory failure (2) Hypoxia (3) Pulmonary fibrosis (4) Breast CA Symptom Scale: (1) Shortness of breath 0-10 Scale: 8 Comment: At rest and on minimal exertion. (2) Debility 0-10 Scale: Unable to quantify Comment: Progressive, worsen secondary to acute illness. Pertinent Non-Medical Issues Psychosocial: Originally from [facility] [place]. for the past 52 years. 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 Spiritual: Anabaptist chet. Legal: No advance directives completed. Ethical issues impacting care: No advance directives completed. . Important Contacts Patient's Anderson Valverde [phone] & . . Prognosis Mrs. Valverde is a 76 y/o female with a medical history significant for breast cancer status post lumpectomy and currently on chemotherapy who was sent to the emergency room from her oncologist office secondary to shortness of breath. Patient with diffuse groundglass densities on CT scan, likely secondary to drug reaction either to Taxol or Herceptin. Patient was placed on Solu-Medrol and Bactrim. Patient remained with profound dyspnea and oxygen saturation on physical exertion. No plan for further chemotherapy at this time secondary to complications. Physical therapy following since 09/07/16, limited participation secondary to profound dyspnea, oxygen saturation on minimal exertion. Most recent chest CT 09/21/16 revealing overall groundglass opacity has improved over the last month but with a fairly rapid progression to pulmonary fibrosis in the peripheral upper lungs at a rate typically not seen with idiopathic pulmonary fibrosis. Patient remains a high risk for further complications, clinical decline and . . Code Status: Alternative Code Plan * CODE STATUS: Alternate code/ACLS drugs only. * HEALTHCARE DECISION MAKER: Patient participating in medical decision-making. No advance directives completed. [place] law, healthcare proxy decision maker is patient's Anderson Valverde. Both patient and in agreement to this, patient declined completing designation of healthcare surrogate at this time. * GOALS OF CARE: Patient electing to continue conservative management at this time short of alt code/ACLS drugs only. Patient verbalized that she is considering comfort-care with hospice at this time secondary to increased symptoms burden; however, she will continue goals of care conversation with her family. Discussed the future role of hospice should her clinical condition continues to worsen. * 09/26/16 -Patient reports feeling tired, does not known if she will be able to "hold on for much longer". Patient feels that her clinical condition has worsened, has been hospitalized for over 30 days. Patient tells me that she just had a conversation with pulmonology, Dr. Hammond. Xanax was added for anxiety /shortness of breath. Patient tells me "everybody wants me to continue fighting but I can't fight any longer", "I am exhausted". Patient asking appropriate questions regarding hospice, she verbalized that she has been considering hospice over the weekend secondary to worsening clinical condition. Patient was encouraged to continue goals of care conversation with her and children. * SYMPTOMS: = Shortness of breath, secondary to pulmonary fibrosis, respiratory failure. Worsening. Pulmonology following. Currently on prednisone 40 mg 2 twice a day. DuoNeb as needed. Xanax was added as needed. = Debility, progressive. Worsen secondary to acute illness. PT following with limited patient participation secondary to profound dyspnea on minimal exertion. * Active listening and ongoing emotional support provided to patient and . Patient appreciative of my visit today. * Palliative care contact information has been provided to patient and . * Palliative care will continue to follow-up for further clarifications of goals of care as her clinical course evolves. . Time Spent Total Floor Time (mins): 36 (Total time to include review and summarization of available medical records, physical exam and goals of care conversation with patient.) >50% Counseling/Coord of Care: Yes Attestation To help prompt me to consider important information that might be impacting today's encounter and assessment, information from prior notes written by myself or my colleagues may have been "brought forward" into today's note. My signature on this note, however, is an attestation that I personally performed the exam, history, and/or decision-making noted today, and, unless otherwise indicated, the interactions with patient, family, and staff as well as the review of records all occurred today. I also attest that the listed assessment and stated plan reflect my best clinical judgment today based on the combination of historical information, prior notes, and today's exam/ interactions. When time spent is documented, it refers only to time spent today by the signer, or if indicated, combined time spent today by collaborating physician/nurse practitioner. Angélica Dewey Sep 26, 2016 13:42
--- NOTE | 2016-09-26 13:46 | RADRPT ---
EXAM DATE/TIME: 09/26/2016 13:03 [facility] COMPARISON: CHEST SINGLE AP, September 12, 2016, 10:22. BARIUM SWALLOW, September 21, 2016, 10:48. INDICATIONS : Evaluate pneumonia. MEDICAL HISTORY : Carcinoma, breast. Pulmonary fibrosis. SURGICAL HISTORY : Left breast lumpectomy. ENCOUNTER: Subsequent ACUITY: 1 month PAIN SCORE: 0/10 LOCATION: chest FINDINGS: There is an [id number] present there the catheter is in satisfactory position. The heart is mildly enlarged. There diffuse chronic appearing interstitial changes. These appear mildly improved when co mpared to previous dated 09/12/16. The visualized bony structures are grossly intact. CONCLUSION: 1. There diffuse chronic appearing interstitial changes within both lungs these are improved compared to previous dated 09/12/16. Vance Harper MD on September 26, 2016 at 13:44 Board Certified Radiologist. This report was verified electronically.
[2016-09-26] MEDS: RESP: ALBUTEROL 2.5 MG/IPRATROPIUM 0.5 MG NEB (SCH) NEB ×2 (14:26→20:24)
[2016-09-26 16:43] LABS: BLOOD GAS BASE EXCESS -0.5 mmol/L (-2-2); BLOOD GAS CARBOXYHEMOGLOBIN 1.1 % (0-4); BLOOD GAS HCO3 22 mmol/L (22-26); BLOOD GAS METHEMOGLOBIN 1.3 % (0-2); BLOOD GAS O2 HGB SATURATION 84 % (90-100); BLOOD GAS OXYGEN CONTENT 13.6 Vol % (12.0-20.0); BLOOD GAS PCO2 29 mmHg (38-42); BLOOD GAS PO2 52 mmHg (61-120); BLOOD GAS TOTAL HGB 11.5 G/DL (12.0-16.0); TEMP CORR TO 98.6
[2016-09-26 16:44] LABS: CRITICAL VALUE YES; DRAW SITE RT RADIAL; NUMBER OF ARTERIAL PUNCTURES 1; OXYGEN DEVICE NASAL CANNULA; STAT NO; ULNAR PULSE PRESENT
[2016-09-26 16:45] LABS: LITER FLOW 4 L/M
[2016-09-26] MEDS: ENOXAPARIN SODIUM 40 MG/0.4 ML SYRINGE SQ SCH (17:37)
[2016-09-27] VITALS (10 sets, daily range): BP systolic 112–148; BP diastolic 65–87; PULSE 92–118; RESP 18–22; TEMP 94.7–97.5; O2SAT 87–98
[2016-09-27] MEDS: INSULIN NovoLIN REGULAR SUPPLEMENTAL SCALE SQ SCH ×4 (05:22→22:06)
[2016-09-27] MEDS: ALPRAZolam 0.25 MG TAB PO PRN ×3 (06:54→22:07)
[2016-09-27] MEDS: RESP: ALBUTEROL 2.5 MG/IPRATROPIUM 0.5 MG NEB (SCH) NEB ×3 (08:26→19:22)
[2016-09-27] MEDS: POLYETHYLENE GLYCOL 17 GM PKG PO SCH (09:00)
[2016-09-27] MEDS: SULFAMETHOXAZOLE-TRIMETHOPRIM DS 800-160 MG TAB PO SCH ×2 (09:26→21:04)
[2016-09-27] MEDS: ATORVASTATIN 80 MG TAB PO SCH (09:26)
[2016-09-27] MEDS: DOCUSATE SODIUM 50 MG/SENNA 8.6 MG TAB PO SCH ×2 (09:27→21:00)
[2016-09-27] MEDS: guaiFENesin E.R. 600 MG TAB PO SCH ×2 (09:27→21:04)
[2016-09-27] MEDS: TOLTERODINE TARTRATE 2 MG CAP LA PO SCH (09:28)
[2016-09-27] MEDS: predniSONE 20 MG TAB PO SCH ×2 (09:28→21:04)
[2016-09-27] MEDS: PANTOPRAZOLE SOD 40 MG DELAYED RELEASE TAB PO SCH (09:28)
[2016-09-27] MEDS: DULoxetine HCl DR 60 MG CAP PO SCH (09:28)
[2016-09-27] MEDS: SODIUM CHLORIDE 0.9% FLUSH 10 ML FLUSH IV FLUSH SCH ×2 (09:34→21:00)
--- NOTE | 2016-09-27 11:20 | PD.ONC.PN ---
Subjective Subjective Remarks Afebrile overnight. Patient very fatigued. She says she wants to go to hospice, but states her wants her to wait. at bedside states he was hoping she would get stronger with time. After discussing further, states he would be willing to speak with hospice. Objective Data Date Time Temp Pulse Resp B/P Pulse Ox O2 Delivery O2 Flow Rate FiO2 09/27/16 08:29 93 Nasal Cannula 5.00 09/27/16 08:00 97.4 99 20 145/70 96 09/27/16 04:25 Nasal Cannula 5.00 Humidified 09/27/16 04:00 97.5 95 18 129/78 98 09/27/16 00:15 Nasal Cannula 5.00 Humidified 09/27/16 00:00 97.3 118 22 112/87 92 09/26/16 21:05 Nasal Cannula 5.00 Humidified 09/26/16 20:37 110 09/26/16 20:26 92 Nasal Cannula 5.00 09/26/16 20:00 97.6 116 21 146/68 94 09/26/16 16:00 Nasal Cannula 5.00 Humidified 09/26/16 16:00 97.5 116 20 141/63 89 09/26/16 12:00 Nasal Cannula 5.00 Humidified 09/26/16 12:00 97.6 119 22 134/69 90 09/27/16 09/27/16 09/27/16 07:00 15:00 23:00 Intake Total 240 ml Output Total 0 ml Balance 240 ml Result Diagram: 09/25/16 0610 09/26/16 0826 Laboratory Results Laboratory Tests Test 09/26/16 16:33 Blood Gas Puncture Site RT RADIAL Blood Gas Patient Temperature 98.6 Blood Gas HCO3 22 mmol/L Blood Gas Base Excess -0.5 mmol/L Blood Gas Oxygen Saturation 84 % Arterial Blood pH 7.50 Arterial Blood Partial 29 mmHg Pressure CO2 Arterial Blood Partial 52 mmHg Pressure O2 Arterial Blood Oxygen Content 13.6 Vol % Arterial Blood 1.1 % Carboxyhemoglobin Arterial Blood Methemoglobin 1.3 % Blood Gas Hemoglobin 11.5 G/DL Oxygen Delivery Device NASAL CANNULA Blood Gas Liter Flow 4 L/M Administered Medications Medications (Trade) Dose Ordered Sig/Aurelia Route PRN Reason Start Time Stop Time Status Last Admin Dose Admin Guaifenesin (Mucinex Er) 600 mg BID PO 08/26/16 21:00 09/27/16 09:27 Sodium Chloride (NS Flush) 2 ml UNSCH PRN IV FLUSH FLUSH AFTER USING IV ACCESS 08/26/16 20:00 09/15/16 01:00 Sodium Chloride (NS Flush) 2 ml BID IV FLUSH 08/26/16 21:00 09/27/16 09:34 Ondansetron HCl (Zofran Inj) 4 mg Q6H PRN IVP NAUSEA OR VOMITING 08/26/16 20:00 09/19/16 22:08 Acetaminophen (Tylenol) 650 mg Q6H PRN PO FEVER/PAIN SCALE 1 TO 2 08/26/16 20:00 08/30/16 01:45 Senna/Docusate Sodium (Letty-Colace) 1 tab BID PO 08/26/16 21:00 09/27/16 09:27 Lactulose (Lactulose Liq) 30 ml DAILY PRN PO SEVERE CONSITIPATION 08/26/16 20:00 09/01/16 09:06 Duloxetine HCl (Cymbalta Dr) 60 mg DAILY PO 08/27/16 09:00 09/27/16 09:28 Atorvastatin Calcium (Lipitor) 80 mg DAILY PO 08/27/16 09:00 09/27/16 09:26 Tolterodine Tartrate (Detrol La) 2 mg DAILY PO 08/27/16 09:00 09/27/16 09:28 Insulin Human Regular (NovoLIN R SUPPLEMENTAL SCALE) 1 ACHS SQ 09/01/16 16:00 09/26/16 17:40 Polyethylene Glycol (Miralax) 17 gm DAILY PO 09/02/16 09:00 09/25/16 08:21 Enoxaparin Sodium (Lovenox Inj) 40 mg Q24H SQ 09/21/16 16:00 09/26/16 17:37 Pantoprazole Sodium (Protonix) 40 mg DAILY PO 09/24/16 09:00 09/27/16 09:28 Trimethoprim/ Sulfamethoxazole (Bactrim Ds 800-160 Mg) 2 tab BID PO 09/23/16 21:00 09/27/16 09:26 Prednisone (Deltasone) 30 mg BID PO 09/26/16 21:00 09/27/16 09:28 Alprazolam (Xanax) 0.25 mg Q6H PRN PO sob 09/26/16 12:45 09/27/16 06:54 Objective Remarks GENERAL: Pleasant female upright in bed, appears very fatigued and forlorn. SKIN: Warm and dry. HEAD: Normocephalic. EYES: No injection or drainage. NECK: Supple, trachea midline. CARDIOVASCULAR: Regular rate and rhythm RESPIRATORY: diminished at bases, scattered rhonchi. On 5L O2 via NC GASTROINTESTINAL: Abdomen soft, non-tender, nondistended. EXTREMITIES: No cyanosis NEUROLOGICAL: awake and alert, normal speech. no obvious focal deficit. Assessment/Plan Problem List: (1) Hypoxia Status: Acute Plan: 09/27: consult hospice per patient and request. --ECHO = no decrease LVEF --pulmonary toxicity either due to Herceptin or Taxol --dr. Hammond, pulmonology following -- CT on 09/21 shows overall improvement of groundglass opacity (2) Breast CA Status: Acute Plan: no further chemo. --started on weekly Herceptin and Taxol chemotherapy on July 15. Assessment 76y/o with triple positive left breast cancer admitted with respiratory insufficiency. Attending Statement No new complain is at bedside They want to speak to Dr. Hammond Continue Steroid will follow Josey Gandara Sep 27, 2016 11:20 Tiburcio Kirk MD Sep 27, 2016 22:11
--- NOTE | 2016-09-27 11:35 | HHI.PR ---
Subjective Remarks Follow-up for acute respiratory failure secondary to pulmonary fibrosis Patient stated that she feels a lot better after taking Xanax. She continues her shortness of breathing but that has improved. With minimal movement she does seem to be very short of breath. Her is at the bedside. He had multiple questions in regards to her diagnosis/prognosis. Objective Vitals Vital Signs Date Time Temp Pulse Resp B/P Pulse Ox O2 Delivery O2 Flow Rate FiO2 09/27/16 08:29 93 Nasal Cannula 5.00 09/27/16 08:00 97.4 99 20 145/70 96 09/27/16 04:25 Nasal Cannula 5.00 Humidified 09/27/16 04:00 97.5 95 18 129/78 98 09/27/16 00:15 Nasal Cannula 5.00 Humidified 09/27/16 00:00 97.3 118 22 112/87 92 09/26/16 21:05 Nasal Cannula 5.00 Humidified 09/26/16 20:37 110 09/26/16 20:26 92 Nasal Cannula 5.00 09/26/16 20:00 97.6 116 21 146/68 94 09/26/16 16:00 Nasal Cannula 5.00 Humidified 09/26/16 16:00 97.5 116 20 141/63 89 09/26/16 12:00 Nasal Cannula 5.00 Humidified 09/26/16 12:00 97.6 119 22 134/69 90 I/O 09/26/16 09/26/16 09/26/16 09/27/16 09/27/16 09/27/16 07:00 15:00 23:00 07:00 15:00 23:00 Intake Total 6 ml 242 ml 240 ml Output Total 0 ml Balance 6 ml 242 ml 240 ml Intake Oral 240 ml 240 ml IV Total 6 ml 2 ml Output Urine Total 0 ml # Voids 2 1 Result Diagram: 09/25/16 0610 09/26/16 0826 Objective Remarks GENERAL: Patient was chronically ill who has increased respiratory rate but seems more calm today. CARDIOVASCULAR: Regular rate and rhythm without murmurs, gallops, or rubs. RESPIRATORY: Bilateral diffuse crackles. No accessory muscle use. GASTROINTESTINAL: Abdomen soft, non-tender, nondistended. MUSCULOSKELETAL: No cyanosis, or edema. BACK: Nontender without obvious deformity. No CVA tenderness. Medications and IVs Current Medications Iohexol 99 ml 99 ml STK-MED ONCE IV Last administered on 08/26/16 19:12; Start 08/26/16 at 19:12; Stop 08/26/16 at 19:13; Status DC Levofloxacin/ Dextrose (Levaquin 500 Mg Premix Inj) 100 ml @ 100 mls/hr ONCE ONCE IV Last administered on 08/26/16 19:22; Start 08/26/16 at 19:15; Stop at 20:14; Status DC Albuterol/ Ipratropium (Duoneb Neb) 1 ampule Q4HR NEB PRN NEB SOB/WHEEZING Last administered on 08/28/16 11:58; Start 08/26/16 at 20:00; Stop 08/28/16 at 12:35; Status DC Budesonide/ Formoterol Fumarate (Symbicort 160-4.5 Inh) 2 puff Q12HR INH Last administered on 08/29/16 09:12; Start 08/26/16 at 21:00; Stop 08/29/16 at 11:48 ; Status DC Guaifenesin 600 mg 600 mg BID PO Last administered on 09/27/16 09:27; Start at 21:00 Sodium Chloride (NS 1000 ml Inj) 1,000 ml @ 100 mls/hr Q10H IV Last administered on 08/27/16 05:03; Start 08/26/16 at 19:49; Stop 08/27/16 at 14:50 ; Status DC Sodium Chloride (NS Flush) 2 ml UNSCH PRN IV FLUSH FLUSH AFTER USING IV ACCESS Last administered on 09/15/16 01:00; Start 08/26/16 at 20:00 Sodium Chloride (NS Flush) 2 ml BID IV FLUSH Last administered on 09/27/16 09: 34; Start 08/26/16 at 21:00 Ondansetron HCl (Zofran Inj) 4 mg Q6H PRN IVP NAUSEA OR VOMITING Last administered on 09/19/16 22:08; Start 08/26/16 at 20:00 Heparin Sodium (Porcine) (Heparin Inj) 5,000 units Q8H SQ Last administered on 09/16/16 12:57; Start 08/26/16 at 20:00; Stop 09/16/16 at 16:28; Status DC Acetaminophen (Tylenol) 650 mg Q6H PRN PO FEVER/PAIN SCALE 1 TO 2 Last administered on 08/30/16 01:45; Start 08/26/16 at 20:00 Acetaminophen/ Hydrocodone Bitart ([place] 5-325 Mg) 1 tab Q4H PRN PO PAIN SCALE 3 TO 5; Start 08/26/16 at 20:00 Morphine Sulfate (Morphine Inj) 2 mg Q3H PRN IV Pain 6-10; Start 08/26/16 at 20: 00 Senna/Docusate Sodium (Letty-Colace) 1 tab BID PO Last administered on 09:27; Start 08/26/16 at 21:00 Magnesium Hydroxide (Milk Of Magntiffanie Liq) 30 ml Q12H PRN PO MILD - MODERATE CONSTIPATION; Start 08/26/16 at 20:00 Sennosides (Senokot) 17.2 mg Q12H PRN PO MODERATE - SEVERE CONSTIPATION; Start 08/26/16 at 20:00 Bisacodyl (Dulcolax Supp) 10 mg DAILY PRN RECTAL SEVERE CONSITIPATION; Start at 20:00 Lactulose 30 ml 30 ml DAILY PRN PO SEVERE CONSITIPATION Last administered on 09:06; Start 08/26/16 at 20:00 Levofloxacin/ Dextrose (Levaquin 750 Mg Premix Inj) 150 ml @ 100 mls/hr Q24H IV Last administered on 09/05/16 21:13; Start 08/27/16 at 21:00; Stop at 17:38; Status DC Duloxetine HCl (Cymbalta Dr) 60 mg DAILY PO Last administered on 09/27/16 09: 28; Start 08/27/16 at 09:00 Atorvastatin Calcium (Lipitor) 80 mg DAILY PO Last administered on 09/27/16 09 :26; Start 08/27/16 at 09:00 Tolterodine Tartrate (Detrol La) 2 mg DAILY PO Last administered on 09/27/16 09:28; Start 08/27/16 at 09:00 Furosemide (Lasix Inj) 40 mg STAT ONCE IV PUSH Last administered on 08/28/16 10:34; Start 08/28/16 at 10:30; Stop 08/28/16 at 10:31; Status DC Enalaprilat (Vasotec Inj) 1.25 mg Q6H PRN IV SBP> OR = 180, DBP> OR = 100; Start 08/28/16 at 10:30 Albuterol/ Ipratropium (Duoneb Neb) 1 ampule Q4HR NEB NEB Last administered on 08/29/16 10:56; Start 08/28/16 at 16:00; Stop 08/29/16 at 11:48; Status DC Albuterol/ Ipratropium (Duoneb Neb) 1 ampule Q2HR NEB PRN NEB SHORTNESS OF BREATH Last administered on 09/26/16 03:22; Start 08/28/16 at 12:30 Methylprednisolone Sodium Succinate (SoluMEDROL INJ) 60 mg Q6HR IV PUSH Last administered on 08/28/16 12:43; Start 08/28/16 at 12:30; Stop 08/28/16 at 16:28 ; Status DC Dextrose (D50w (Vial) Inj) 50 ml UNSCH PRN IV HYPOGLYCEMIA-SEE COMMENTS; Start 08/28/16 at 12:30 Glucagon (Glucagon Inj) 1 mg UNSCH PRN OTHER HYPOGLYCEMIA-SEE COMMENTS; Start 08/28/16 at 12:30 Insulin Human Regular (NovoLIN R SUPPLEMENTAL SCALE) 1 Q6HR SQ Last administered on 09/01/16 11:58; Start 08/28/16 at 12:30; Stop 09/01/16 at 13:05 ; Status DC Methylprednisolone Sodium Succinate 40 mg 40 mg Q8HR IV Last administered on 05:14; Start 08/28/16 at 22:00; Stop 08/29/16 at 11:48; Status DC Potassium Chloride 100 ml @ 50 mls/hr Q2H PRN IV For Potassium 2.8 - 3.2 mEq/L ; Start 08/28/16 at 16:30; Stop 09/07/16 at 09:04; Status DC Potassium Chloride (KCl 20 Meq Premix Inj) 100 ml @ 50 mls/hr Q2H PRN IV For Potassium 2.8 - 3.2 mEq/L; Start 08/28/16 at 16:30; Stop 09/07/16 at 09:04; Status DC Potassium Bicarb/ Potassium Chloride 50 meq 50 meq UNSCH PRN PO For Potassium 3.3 - 3.5 mEq/L; Start 08/28/16 at 16:30; Stop 09/07/16 at 09:04; Status DC Potassium Chloride 100 ml @ 25 mls/hr UNSCH PRN IV For Potassium 3.3 - 3.5 mEq /L; Start 08/28/16 at 16:30; Stop 09/07/16 at 09:04; Status DC Potassium Chloride 100 ml @ 50 mls/hr Q2H PRN IV For Potassium 3.3 - 3.5 mEq/L ; Start 08/28/16 at 16:30; Stop 09/07/16 at 09:04; Status DC Magnesium Sulfate/ Sodium Chloride (Magnesium Sulfate Inj/NS Inj) 100 ml @ 50 mls/hr UNSCH PRN IV For Magnesium 0.9 - 1.1 mg/dL; Start 08/28/16 at 16:30; Stop 09/07/16 at 09:05; Status DC Magnesium Oxide 800 mg 800 mg UNSCH PRN PO For Magnesium 1.2 - 1.6 mg/dL; Start 08/28/16 at 16:30; Stop 09/07/16 at 09:05; Status DC Magnesium Sulfate/ Sodium Chloride (Magnesium Sulfate Inj/NS Inj) 100 ml @ 50 mls/hr UNSCH PRN IV For Magnesium 1.2 - 1.6 mg/dL; Start 08/28/16 at 16:30; Stop 09/07/16 at 09:05; Status DC Potassium Phosphate 2000 mg 2,000 mg Q4H PRN PO For Phosphorus < 2.5 mg/dL Last administered on 09/06/16t 14:29; Start 08/28/16 at 16:30; Stop 09/07/16 at 09:06; Status DC Sodium Phosphate/ Sodium Chloride (Sodium Phosphate Inj/NS 250 ml Inj) 250 ml @ 42 mls/hr UNSCH PRN IV For Phosphorus < 2.5 mg/dL; Start 08/28/16 at 16:30; Stop 09/07/16 at 09:06; Status DC Potassium Phosphate 2000 mg 2,000 mg UNSCH PRN PO/TUBE SEE LABEL COMMENTS; Start 08/28/16 at 16:30; Stop 09/07/16 at 09:06; Status DC Potassium Phosphate/Sodium Chloride (Potassium Phosphate Inj/NS 250 ml Inj) 260 ml @ 42 mls/hr UNSCH PRN IV SEE LABEL COMMENTS; Start 08/28/16 at 16:30; Stop 09/07/16 at 09:06; Status DC Miscellaneous Information Patient in critical care unit? Ass... [id number] .XX ; Start 08/28/16 at 19:30 Chlorhexidine Gluconate (Chlorhexidine 2% Cloth) 3 pack DAILY@04 TOPICAL Last administered on 09/02/16 04:00; Start 08/29/16 at 04:00; Stop 09/02/16 at 04:01 ; Status DC Chlorhexidine Gluconate (Chlorhexidine 2% Cloth) 3 pack UNSCH PRN TOPICAL HYGIENIC CARE; Start 08/28/16 at 19:30; Stop 09/02/16 at 19:28; Status DC Albuterol/ Ipratropium (Duoneb Neb) 1 ampule TID NEB NEB Last administered on 09/05/16 07:58; Start 08/29/16 at 14:00; Stop 09/05/16 at 12:37; Status DC Methylprednisolone Sodium Succinate (SoluMEDROL INJ) 60 mg Q8HR IV Last administered on 09/06/16 14:28; Start 08/29/16 at 14:00; Stop 09/06/16 at 17:38 ; Status DC Pantoprazole Sodium (Protonix) 20 mg DAILY PO Last administered on 09/23/16 09: 12; Start 08/29/16 at 11:45; Stop 09/23/16 at 11:47; Status DC Insulin Human Regular (NovoLIN R SUPPLEMENTAL SCALE) 1 ACHS SQ Last administered on 09/26/16 17:40; Start 09/01/16 at 16:00 Polyethylene Glycol (Miralax) 17 gm DAILY PO Last administered on 09/25/16 08: 21; Start 09/02/16 at 09:00 Polyethylene Glycol (Miralax) 17 gm ONCE ONCE PO ; Start 09/01/16 at 13:15; Stop 09/01/16 at 13:16; Status DC Potassium Chloride (KCl) 20 meq ONCE ONCE PO Last administered on 09/03/16 14 :10; Start 09/03/16 at 13:00; Stop 09/03/16 at 13:04; Status DC Furosemide (Lasix Inj) 40 mg ONCE ONCE IV PUSH Last administered on 09/05/16 11:07; Start 09/05/16 at 11:00; Stop 09/05/16 at 11:02; Status DC Furosemide (Lasix Inj) 20 mg BID@09,18 IV PUSH ; Start 09/06/16 at 09:00; Stop 09/06/16 at 09:00; Status DC Albuterol/ Ipratropium (Duoneb Neb) 1 ampule BID NEB NEB Last administered on 09/08/16 08:08; Start 09/05/16 at 20:00; Stop 09/08/16 at 12:15; Status DC Furosemide (Lasix Inj) 20 mg DAILY IV PUSH Last administered on 09/08/16 09:23 ; Start 09/06/16 at 09:00; Stop 09/08/16 at 12:15; Status DC Trimethoprim/ Sulfamethoxazole (Bactrim Ds 800-160 Mg) 1 tab Q24H PO Last administered on 09/12/16 13:33; Start 09/05/16 at 13:00; Stop 09/13/16 at 08:38 ; Status DC Methylprednisolone Sodium Succinate (SoluMEDROL INJ) 60 mg Q12H IV Last administered on 09/07/16 02:14; Start 09/07/16 at 02:00; Stop 09/07/16 at 12:57 ; Status DC Methylprednisolone Sodium Succinate (SoluMEDROL INJ) 40 mg Q12H IV Last administered on 09/08/16 03:05; Start 09/07/16 at 14:00; Stop 09/08/16 at 12:15 ; Status DC Prednisone (Deltasone) 30 mg BID PO Last administered on 09/12/16 08:54; Start 09/08/16 at 13:00; Stop 09/12/16 at 13:02; Status DC Albuterol/ Ipratropium (Duoneb Neb) 1 ampule BID NEB NEB Last administered on 09/18/16 10:29; Start 09/10/16 at 20:00; Stop 09/18/16 at 13:08; Status DC Methylprednisolone Sodium Succinate (SoluMEDROL INJ) 60 mg Q12HR IV PUSH Last administered on 09/13/16 08:26; Start 09/12/16 at 14:00; Stop 09/13/16 at 08:38 ; Status DC Methylprednisolone Sodium Succinate (SoluMEDROL INJ) 60 mg Q8H IV PUSH Last administered on 09/16/16 09:04; Start 09/13/16 at 16:00; Stop 09/16/16 at 11:14 ; Status DC Trimethoprim/ Sulfamethoxazole (Bactrim Ds 800-160 Mg) 1 tab BID PO Last administered on 09/23/16 09:12; Start 09/13/16 at 09:00; Stop 09/23/16 at 13:27; Status DC Methylprednisolone Sodium Succinate (SoluMEDROL INJ) 60 mg Q12HR IV PUSH Last administered on 09/19/16 08:58; Start 09/16/16 at 21:00; Stop 09/19/16 at 11:08; Status DC Enoxaparin Sodium (Lovenox Inj) 40 mg Q24H SQ Last administered on 09/19/16 18: 27; Start 09/17/16 at 18:00; Stop 09/21/16 at 15:54; Status DC Prednisone (Deltasone) 40 mg BID PO Last administered on 09/21/16 11:19; Start 09/19/16 at 21:00; Stop 09/21/16 at 15:13; Status DC Enoxaparin Sodium (Lovenox Inj) 40 mg Q24H SQ Last administered on 09/26/16 17 :37; Start 09/21/16 at 16:00 Prednisone (Deltasone) 30 mg BID PO ; Start 09/21/16 at 21:00; Stop 09/21/16 at 21 :00; Status DC Prednisone (Deltasone) 20 mg BID PO Last administered on 09/23/16 09:12; Start 09/21/16 at 21:00; Stop 09/23/16 at 14:47; Status DC Pantoprazole Sodium (Protonix) 40 mg DAILY PO Last administered on 09/27/16 09 :28; Start 09/24/16 at 09:00 Trimethoprim/ Sulfamethoxazole (Bactrim Ds 800-160 Mg) 1 tab QID PO ; Start 09/23 at 18:00; Stop 09/23/16 at 18:00; Status DC Prednisone (Deltasone) 40 mg BID PO Last administered on 7/10/17at 08:11; Start 09/23/16 at 21:00; Stop 09/26/16 at 12:37; Status DC Trimethoprim/ Sulfamethoxazole (Bactrim Ds 800-160 Mg) 2 tab BID PO Last administered on 09/27/16 09:26; Start 09/23/16 at 21:00 Lorazepam (Ativan) 0.5 mg ONCE ONCE PO Last administered on 09/24/16 12:32; Start 09/24/16 at 10:45; Stop 09/24/16 at 10:55; Status DC Lorazepam (Ativan) 0.5 mg Q12H PRN PO anxiety; Start 09/24/16 at 10:45; Stop 09/25/16 at 12:12; Status DC Prednisone (Deltasone) 30 mg BID PO Last administered on 09/27/16 09:28; Start 09/26/16 at 21:00 Alprazolam (Xanax) 0.25 mg Q6H PRN PO sob Last administered on 09/27/16 06:54 ; Start 09/26/16 at 12:45 Albuterol/ Ipratropium (Duoneb Neb) 1 ampule TID NEB NEB Last administered on 09/27/16 08:26; Start 09/26/16 at 14:00 Miscellaneous (Pill Splitter) 1 ea UNSCH PRN OTHER SEE LABEL COMMENTS; Start at 13:15 Date of Removal: Sep 04, 2016 A/P Problem List: (1) Hypoxia ICD Code: R09.02 Status: Acute (2) Bandemia ICD Code: D72.825 Status: Acute (3) Dehydration ICD Code: E86.0 Status: Resolved (4) Breast CA ICD Code: C50.919 Status: Acute (5) HTN (hypertension) ICD Code: I10 Status: Acute (6) Acute respiratory failure ICD Code: J96.00 Status: Resolved Assessment and Plan 76 years old female admitted for Acute hypoxemic respiratory failure- on 6LNC Extensive ground-glass opacities. Ddx: hypersensitivity pneumonitis vs chemotherapy induced pulmonary toxicity/interstitial pneumonitis versus other causes of valvulitis -Repeat CT scan showing resolution of the pneumonitis but now showing interstitial fibrosis. 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 -Continue Bactrim. -Oxygen back up to 5 L and she continued to be severely symptomatic. Poor prognosis. -Continue management per Dr. barrientos. Interstitial pulmonary fibrosis -Patient now showing development of pulmonary fibrosis. -She continues to desat with minimal improvement. -Extensive education to diagnosis and prognosis discussed with patient. -Poor prognosis. Palliative care following. Triple positive left breast cancer status post Herceptin scan and Taxol 07/15 weekly chemotherapy Normocytic anemia Leukocytosis Monitor CBC daily. Follow trends Anxiety On Xanax Leukocytosis - Due to steroids. Dysphasia - -EGD cancelled due to low 02 saturation- may not tolerate anesthesia -on PPIGI: - speech therapy consult for swallowing evaluation on PPI Dyslipidemia /Stage I diastolic dysfunction/Depression -currently on Lipitor 80 mg by mouth at bedtime for dyslipidemia -2-D echo revealed EF 55%. Stage I diastolic dysfunction. Mild MR. -Continue Cymbalta 60 mg by mouth daily for depression -Continue [place] for pain management Urinary Incontinence- improved -Continue Detrol LA 2 mg by mouth daily Hyper-magnesium -Replace electrolytes as clinically indicated Decondition -PT consulted and working with patient Prophylaxis - GI - Protonix - DVT - SCD/Lovenox- restart- EGD cancelled Discharge Planning Patient continues to be severely symptomatic with minimal movement. Poor prognosis. Hospice order was placed. Her at the bedside all questions were answered to his satisfaction. Priscilla Rich MD Sep 27, 2016 11:35
--- NOTE | 2016-09-27 15:37 | HHI.HCPN ---
Reason for visit a. To assist with evaluation and management of symptoms including: Shortness of breath and debility. b. To assist medical decision maker(s) with: better understanding of current medical conditions; weighing benefits/burdens of medical treatment options; making medical treatment decisions. . Subjective/Interval History Mrs. Valverde is a 76 y/o female with a medical history of triple positive left breast cancer diagnosed proximately 3 months ago. She underwent left breast lumpectomy and sentinel lymph node sampling which were negative. The patient was started on weekly Herceptin and Taxol chemotherapy on July 15, 2016. Patient tolerating well until the first week of August when she started experiencing increased shortness of breath. Patient was found with diffuse groundglass densities on CT scan, likely secondary to drug reaction either to Taxol or Herceptin. Patient remained with profound dyspnea and oxygen saturation on physical exertion. No plan for further chemotherapy at this time secondary to complications. Palliative care was consulted for further clarifications of goals of care given increased symptom burden. Patient seen in her room, she was sitting up in her bed in no acute distress. Endorsing feeling much better from yesterday saying she was started on Xanax. Endorsing dyspnea on exertion, dyspnea at rest much better controlled today. Denies nausea or vomiting. Chest x-ray today showing improved chronic appearing interstitial changes within both lungs. No new labs for review. Spoke with patient and at bedside. Patient reports feeling tired, however, symptoms are better control today. Patient with a lot of questions regarding hospice timing, this has been discussed with attending earlier today. Hospice referral has been made for informative visit. Patient and wishing to meet with hospice to discussed future enrollment should her clinical condition worsen or there is additional physical decline. Ongoing emotional support and active listening provided. Palliative care will continue to follow- up as needed. . Family/friend interactions See interval note. . Advance Directives Living Will: Never completed Health Care Surrogate: Never completed Durable Power of Cylinder Inspector: Never completed Advance Directive Specifics Health Care Surrogate(s): No advance directives completed. [place] law, healthcare proxy decision maker is patient's . . Documented care wishes: No living will completed. . Significant change in goals: Alt code/ACLS drugs. Continue with current medical management. Objective Vital Signs Date Time Temp Pulse Resp B/P Pulse Ox O2 Delivery O2 Flow Rate FiO2 09/27/16 12:00 97.4 108 20 135/73 94 09/27/16 12:00 94 Nasal Cannula 5.00 Humidified 09/27/16 08:29 93 Nasal Cannula 5.00 09/27/16 08:00 92 Nasal Cannula 5.00 Humidified 09/27/16 08:00 97.4 99 20 145/70 96 09/27/16 07:00 92 09/27/16 04:25 Nasal Cannula 5.00 Humidified 09/27/16 04:00 97.5 95 18 129/78 98 09/27/16 00:15 Nasal Cannula 5.00 Humidified 09/27/16 00:00 97.3 118 22 112/87 92 09/26/16 21:05 Nasal Cannula 5.00 Humidified 09/26/16 20:37 110 09/26/16 20:26 92 Nasal Cannula 5.00 09/26/16 20:00 97.6 116 21 146/68 94 09/26/16 16:00 Nasal Cannula 5.00 Humidified 09/26/16 16:00 97.5 116 20 141/63 89 Intake & Output 09/27/16 09/27/16 07:00 19:00 Intake Total 482 ml 480 ml Output Total 0 ml 300 ml Balance 482 ml 180 ml Intake Oral 480 ml 480 ml IV Total 2 ml Output Urine Total 0 ml 300 ml # Voids 1 Physical Exam CONSTITUTIONAL/GENERAL: This is an adequately nourished patient in no acute distress. TUBES/LINES/DRAINS: PIV's, nasal cannula. SKIN: Pale. No jaundice, rashes, or lesions. Ecchymoses on upper extremities. No wounds seen anteriorly. Skin temperature appropriate. Not diaphoretic. HEAD: Atraumatic. Normocephalic. Alopecia. EYES: Pupils equal and round and reactive. Extraocular motions intact. No scleral icterus. No injection or drainage. ENT: Hearing grossly normal. Nose without bleeding or purulent drainage. Chapped lips. NECK: Trachea midline. Supple, nontender. CARDIOVASCULAR: Tachycardic, without murmurs, gallops, or rubs. No JVD. Peripheral pulses symmetric. RESPIRATORY/CHEST: Symmetric, increased work of breathing on minimal exertion. diminished to auscultation. GASTROINTESTINAL: Abdomen soft, non-tender, nondistended. No guarding. Bowel sounds present. GENITOURINARY: Without palpable bladder distension. MUSCULOSKELETAL: Extremities without clubbing, cyanosis. Trace edema to bilateral lower extremities. NEUROLOGICAL: Awake and alert. Motor and sensory grossly within normal limits. Follows commands. Cognitively sharp. Moves all extremities. PSYCHIATRIC: Calm. . Diagnostic Tests Laboratory Laboratory Tests Test 09/25/16 09/26/16 09/26/16 06:10 08:26 16:33 White Blood Count 13.4 TH/MM3 (4.0-11.0) Red Blood Count 3.84 MIL/MM3 (4.00-5.30) Hemoglobin 11.0 GM/DL (11.6-15.3) Hematocrit 33.2 % (35.0-46.0) Mean Corpuscular Volume 86.4 FL (80.0-100.0) Mean Corpuscular Hemoglobin 28.6 PG (27.0-34.0) Mean Corpuscular Hemoglobin 33.1 % Concent (32.0-36.0) Red Cell Distribution Width 18.7 % (11.6-17.2) Platelet Count 185 TH/MM3 (150-450) Mean Platelet Volume 9.0 FL (7.0-11.0) Neutrophils (%) (Auto) 91.0 % (16.0-70.0) Lymphocytes (%) (Auto) 4.4 % (9.0-44.0) Monocytes (%) (Auto) 4.0 % (0.0-8.0) Eosinophils (%) (Auto) 0.1 % (0.0-4.0) Basophils (%) (Auto) 0.5 % (0.0-2.0) Neutrophils # (Auto) 12.2 TH/MM3 (1.8-7.7) Lymphocytes # (Auto) 0.6 TH/MM3 (1.0-4.8) Monocytes # (Auto) 0.5 TH/MM3 (0-0.9) Eosinophils # (Auto) 0.0 TH/MM3 (0-0.4) Basophils # (Auto) 0.1 TH/MM3 (0-0.2) CBC Comment AUTO DIFF Differential Total Cells 100 Counted Neutrophils % (Manual) 94 % (16-70) Lymphocytes % 1 % (9-44) Monocytes % 3 % (0-8) Neutrophils # (Manual) 12.9 TH/MM3 (1.8-7.7) Metamyelocytes 2 % (0-1) Differential Comment FINAL DIFF MANUAL Platelet Estimate NORMAL (NORMAL) Platelet Morphology Comment NORMAL (NORMAL) Red Cell Morphology Comment NORMAL (NORMAL) Sodium Level 135 MEQ/L 135 MEQ/L (136-145) (136-145) Potassium Level 4.8 MEQ/L 4.8 MEQ/L (3.5-5.1) (3.5-5.1) Chloride Level 101 MEQ/L 100 MEQ/L (98-107) (98-107) Carbon Dioxide Level 24.4 MEQ/L 27.4 MEQ/L (21.0-32.0) (21.0-32.0) Anion Gap 10 MEQ/L (5-15) 8 MEQ/L (5-15) Blood Urea Nitrogen 22 MG/DL (7-18) 21 MG/DL (7-18) Creatinine 0.69 MG/DL 0.72 MG/DL (0.50-1.00) (0.50-1.00) Estimat Glomerular Filtration 82 ML/MIN (>89) 79 ML/MIN (>89) Rate Random Glucose 122 MG/DL 117 MG/DL (74-106) (74-106) Calcium Level 9.0 MG/DL 9.2 MG/DL (8.5-10.1) (8.5-10.1) Blood Gas Puncture Site RT RADIAL Blood Gas Patient Temperature 98.6 Blood Gas HCO3 22 mmol/L (22-26) Blood Gas Base Excess -0.5 mmol/L (-2-2) Blood Gas Oxygen Saturation 84 % (90-100) Arterial Blood pH 7.50 (7.380-7.420) Arterial Blood Partial 29 mmHg (38-42) Pressure CO2 Arterial Blood Partial 52 mmHg Pressure O2 (61-120) Arterial Blood Oxygen Content 13.6 Vol % (12.0-20.0) Arterial Blood 1.1 % (0-4) Carboxyhemoglobin Arterial Blood Methemoglobin 1.3 % (0-2) Blood Gas Hemoglobin 11.5 G/DL (12.0-16.0) Oxygen Delivery Device NASAL CANNULA Blood Gas Liter Flow 4 L/M Result Diagram: 09/25/16 0610 09/26/16 0826 Imaging Last 48 hours Impressions Chest X-Ray 09/26/16 0000 Signed Impressions: Service Date/Time: Monday, September 26, 2016 13:03 - CONCLUSION: 1. There diffuse chronic appearing interstitial changes within both lungs these are improved compared to previous dated 09/12/16. Vance Harper MD Assessment and Plan Disease Oriented Problem List: (1) Acute respiratory failure (2) Hypoxia (3) Pulmonary fibrosis (4) Breast CA Symptom Scale: (1) Shortness of breath 0-10 Scale: 3 Comment: At rest and on minimal exertion. (2) Debility 0-10 Scale: Unable to quantify Comment: Progressive, worsen secondary to acute illness. Pertinent Non-Medical Issues Psychosocial: Originally from [place]. for the past 52 years. Has 3 children. 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 Spiritual: Confucianist chet. Legal: No advance directives completed. Ethical issues impacting care: No advance directives completed. . Important Contacts Patient's Anderson Valverde [phone] & . . Prognosis Mrs. Valverde is a 76 y/o female with a medical history significant for breast cancer status post lumpectomy and currently on chemotherapy who was sent to the emergency room from her oncologist office secondary to shortness of breath. Patient with diffuse groundglass densities on CT scan, likely secondary to drug reaction either to Taxol or Herceptin. Patient was placed on Solu-Medrol and Bactrim. Patient remained with profound dyspnea and oxygen saturation on physical exertion. No plan for further chemotherapy at this time secondary to complications. Physical therapy following since 09/07/16, limited participation secondary to profound dyspnea, oxygen saturation on minimal exertion. Most recent chest CT 09/21/16 revealing overall groundglass opacity has improved over the last month but with a fairly rapid progression to pulmonary fibrosis in the peripheral upper lungs at a rate typically not seen with idiopathic pulmonary fibrosis. Patient remains a high risk for further complications, clinical decline and . . Code Status: Alternative Code Plan * CODE STATUS: Alternate code/ACLS drugs only. * HEALTHCARE DECISION MAKER: Patient participating in medical decision-making. No advance directives completed. [place] law, healthcare proxy decision maker is patient's Anderson Valverde. Both patient and in agreement to this, patient declined completing designation of healthcare surrogate at this time. * GOALS OF CARE: Patient electing to continue conservative management at this time short of alt code/ACLS drugs only. Patient wishing to allow a few days for clinical improvement, may consider hospice should her clinical condition continues to worsen or there is additional physical decline. Hospice referral made this morning for informational visit. * 09/27/16. Spoke with patient and at bedside. Patient reports feeling tired, however, symptoms are better control today. Patient with a lot of questions regarding hospice timing, this has been discussed with attending earlier today. Hospice referral has been made for informative visit. Patient and wishing to meet with hospice to discussed future enrollment should her clinical condition worsen or there is additional physical decline. * SYMPTOMS: = Shortness of breath, secondary to pulmonary fibrosis, respiratory failure. Pulmonology following. Currently on prednisone 30 mg 2 twice a day. DuoNeb as needed. Xanax was added yesterday with good effect. = Debility, progressive. Worsen secondary to acute illness. PT following with limited patient participation secondary to profound dyspnea on minimal exertion. * Active listening and ongoing emotional support provided to patient and . * Palliative care contact information has been provided to patient and . * Palliative care will continue to follow-up as needed for further clarifications of goals of care as her clinical course evolves. . Time Spent Total Floor Time (mins): 32 (Total time to include review medical records, physical exam and goals of care conversation with patient and . Case discussed with hospice clinical supervisor Kirstin.) >50% Counseling/Coord of Care: Yes Attestation To help prompt me to consider important information that might be impacting today's encounter and assessment, information from prior notes written by myself or my colleagues may have been "brought forward" into today's note. My signature on this note, however, is an attestation that I personally performed the exam, history, and/or decision-making noted today, and, unless otherwise indicated, the interactions with patient, family, and staff as well as the review of records all occurred today. I also attest that the listed assessment and stated plan reflect my best clinical judgment today based on the combination of historical information, prior notes, and today's exam/ interactions. When time spent is documented, it refers only to time spent today by the signer, or if indicated, combined time spent today by collaborating physician/nurse practitioner. Angélica Dewey Sep 27, 2016 15:37
[2016-09-27] MEDS: MORPHINE SULFATE 4 MG/ML INJ IV PRN ×2 (16:40→22:08)
[2016-09-27] MEDS: ENOXAPARIN SODIUM 40 MG/0.4 ML SYRINGE SQ SCH (16:40)
[2016-09-28] VITALS (11 sets, daily range): BP systolic 119–154; BP diastolic 58–82; PULSE 88–123; RESP 18–22; TEMP 97.4–99; O2SAT 89–98
[2016-09-28] MEDS: RESP: ALBUTEROL 2.5 MG/IPRATROPIUM 0.5 MG NEB (PRN) NEB (02:29)
[2016-09-28] MEDS: ALPRAZolam 0.25 MG TAB PO PRN ×2 (03:16→21:39)
[2016-09-28] MEDS: RESP: IPRATROPIUM 0.5 MG/2.5 ML NEB NEB PRN ×2 (04:34→11:45)
[2016-09-28] MEDS: INSULIN NovoLIN REGULAR SUPPLEMENTAL SCALE SQ SCH ×4 (05:12→21:00)
[2016-09-28] MEDS: SULFAMETHOXAZOLE-TRIMETHOPRIM DS 800-160 MG TAB PO SCH ×2 (09:43→21:37)
[2016-09-28] MEDS: predniSONE 20 MG TAB PO SCH ×2 (09:44→21:38)
[2016-09-28] MEDS: DULoxetine HCl DR 60 MG CAP PO SCH (09:44)
[2016-09-28] MEDS: SODIUM CHLORIDE 0.9% FLUSH 10 ML FLUSH IV FLUSH SCH ×2 (09:44→21:38)
[2016-09-28] MEDS: POLYETHYLENE GLYCOL 17 GM PKG PO SCH (09:45)
[2016-09-28] MEDS: DOCUSATE SODIUM 50 MG/SENNA 8.6 MG TAB PO SCH ×2 (09:45→21:00)
[2016-09-28] MEDS: PANTOPRAZOLE SOD 40 MG DELAYED RELEASE TAB PO SCH (09:45)
[2016-09-28] MEDS: TOLTERODINE TARTRATE 2 MG CAP LA PO SCH (09:45)
[2016-09-28] MEDS: guaiFENesin E.R. 600 MG TAB PO SCH ×2 (09:45→21:37)
[2016-09-28] MEDS: ATORVASTATIN 80 MG TAB PO SCH (09:45)
[2016-09-28] MEDS ORDERED: RESP: IPRATROPIUM 0.5 MG/2.5 ML NEB NEB SCH (10:00)
--- NOTE | 2016-09-28 11:26 | PD.ONC.PN ---
Subjective Subjective Remarks Afebrile overnight. Patient resting in bed. No family members at bedside. Feeling fatigued. Objective Data Date Time Temp Pulse Resp B/P Pulse Ox O2 Delivery O2 Flow Rate FiO2 09/28/16 09:09 91 Nasal Cannula 4.00 09/28/16 09:04 97.5 117 20 128/82 90 09/28/16 05:42 92 Nasal Cannula 5.00 Humidified 09/28/16 04:10 97.6 123 22 131/68 89 09/28/16 02:35 Nasal Cannula 6.00 Humidified 09/28/16 00:50 97.6 112 20 154/72 95 09/28/16 00:00 Nasal Cannula 5.00 Humidified 09/27/16 21:15 Nasal Cannula 5.00 Humidified 09/27/16 20:01 105 09/27/16 20:00 97.5 113 20 125/72 87 09/27/16 19:22 93 Nasal Cannula 5.00 09/27/16 16:00 94.7 108 20 148/65 92 09/27/16 16:00 92 Nasal Cannula 5.00 Humidified 09/27/16 12:00 97.4 108 20 135/73 94 09/27/16 12:00 94 Nasal Cannula 5.00 Humidified 09/28/16 09/28/16 09/28/16 07:00 15:00 23:00 Intake Total 100 ml Output Total 2 ml Balance 98 ml Result Diagram: 09/25/16 0610 09/26/16 0826 Administered Medications Medications (Trade) Dose Ordered Sig/Aurelia Route PRN Reason Start Time Stop Time Status Last Admin Dose Admin Guaifenesin (Mucinex Er) 600 mg BID PO 08/26/16 21:00 09/28/16 09:45 Sodium Chloride (NS Flush) 2 ml UNSCH PRN IV FLUSH FLUSH AFTER USING IV ACCESS 08/26/16 20:00 09/15/16 01:00 Sodium Chloride (NS Flush) 2 ml BID IV FLUSH 08/26/16 21:00 09/28/16 09:44 Ondansetron HCl (Zofran Inj) 4 mg Q6H PRN IVP NAUSEA OR VOMITING 08/26/16 20:00 09/19/16 22:08 Acetaminophen (Tylenol) 650 mg Q6H PRN PO FEVER/PAIN SCALE 1 TO 2 08/26/16 20:00 6/13/17 01:45 Morphine Sulfate (Morphine Inj) 2 mg Q3H PRN IV Pain 6-08/26/16 20:00 09/27/16 22:08 Senna/Docusate Sodium (Letty-Colace) 1 tab BID PO 08/26/16 21:00 09/28/16 09:45 Lactulose (Lactulose Liq) 30 ml DAILY PRN PO SEVERE CONSITIPATION 08/26/16 20:00 09/01/16 09:06 Duloxetine HCl (Cymbalta Dr) 60 mg DAILY PO 08/27/16 09:00 09/28/16 09:44 Atorvastatin Calcium (Lipitor) 80 mg DAILY PO 08/27/16 09:00 09/28/16 09:45 Tolterodine Tartrate (Detrol La) 2 mg DAILY PO 08/27/16 09:00 09/28/16 09:45 Insulin Human Regular (NovoLIN R SUPPLEMENTAL SCALE) 1 ACHS SQ 09/01/16 16:00 09/27/16 22:06 Polyethylene Glycol (Miralax) 17 gm DAILY PO 09/02/16 09:00 09/28/16 09:45 Enoxaparin Sodium (Lovenox Inj) 40 mg Q24H SQ 09/21/16 16:00 09/27/16 16:40 Pantoprazole Sodium (Protonix) 40 mg DAILY PO 09/24/16 09:00 09/28/16 09:45 Trimethoprim/ Sulfamethoxazole (Bactrim Ds 800-160 Mg) 2 tab BID PO 09/23/16 21:00 09/28/16 09:43 Prednisone (Deltasone) 30 mg BID PO 09/26/16 21:00 09/28/16 09:44 Alprazolam (Xanax) 0.25 mg Q6H PRN PO sob 09/26/16 12:45 09/28/16 03:16 Objective Remarks GENERAL: Fatigued elderly female upright in bed, on 4L O2 via NC SKIN: Warm and dry. HEAD: Normocephalic. EYES: No injection or drainage. NECK: Supple, trachea midline. CARDIOVASCULAR: +S1/S2 RESPIRATORY: diminished at bases, scattered rhonchi. GASTROINTESTINAL: Abdomen soft, non-tender, nondistended. EXTREMITIES: No cyanosis NEUROLOGICAL: No obvious focal deficit. Awake, alert, and oriented x3. Assessment/Plan Problem List: (1) Hypoxia Status: Acute Plan: 09/28: discussed with patient her goals: she states she is still leaning toward desiring hospice, but is content to wait out the rest of the week, as her family does not want her to go home with hospice. therefore I canceled the hospice consult. will continue to follow. --ECHO = no decrease LVEF --pulmonary toxicity either due to Herceptin or Taxol --dr. Hammond, pulmonology following -- CT on 09/21 shows overall improvement of groundglass opacity (2) Breast CA Status: Acute Plan: no further chemo. --started on weekly Herceptin and Taxol chemotherapy on July 15. Assessment 76y/o with triple positive left breast cancer admitted with respiratory insufficiency. Attending Statement no new c/o I can breath deeply. Continue steroid. D/W DR hammond . He does not want hospice at this time Josey Gandara Sep 28, 2016 11:26 Tiburcio Kirk MD Sep 28, 2016 15:32
[2016-09-28] MEDS: RESP: IPRATROPIUM 0.5 MG/2.5 ML NEB NEB SCH ×2 (12:29→19:12)
[2016-09-28] MEDS ORDERED: ALPRAZolam 0.5 MG TAB PO ONE (14:00)
--- NOTE | 2016-09-28 15:37 | HHI.PR ---
Subjective Remarks Follow-up for respiratory failure secondary to pulmonary fibrosis Patient states she continues to follow short of breath. She stated that she has not improved. Her is at the bedside. He stated that all questions were answered by Dr. Hammond which left him with hope that she may get better. Patient does not feel like she's getting better in fact she said that she feels a little worse today. Objective Vitals Vital Signs Date Time Temp Pulse Resp B/P Pulse Ox O2 Delivery O2 Flow Rate FiO2 09/28/16 12:00 97.8 121 22 125/58 93 09/28/16 11:45 90 Nasal Cannula 5.00 09/28/16 09:09 91 Nasal Cannula 4.00 09/28/16 09:04 97.5 117 20 128/82 90 09/28/16 05:42 92 Nasal Cannula 5.00 Humidified 09/28/16 04:10 97.6 123 22 131/68 89 09/28/16 02:35 Nasal Cannula 6.00 Humidified 09/28/16 00:50 97.6 112 20 154/72 95 09/28/16 00:00 Nasal Cannula 5.00 Humidified 09/27/16 21:15 Nasal Cannula 5.00 Humidified 09/27/16 20:01 105 09/27/16 20:00 97.5 113 20 125/72 87 09/27/16 19:22 93 Nasal Cannula 5.00 09/27/16 16:00 94.7 108 20 148/65 92 09/27/16 16:00 92 Nasal Cannula 5.00 Humidified I/O 09/27/16 09/27/16 09/27/16 09/28/16 09/28/16 09/28/16 07:00 15:00 23:00 07:00 15:00 23:00 Intake Total 240 ml 480 ml 202 ml 100 ml 480 ml Output Total 0 ml 300 ml 200 ml 2 ml 675 ml Balance 240 ml 180 ml 2 ml 98 ml -195 ml Intake Oral 240 ml 480 ml 200 ml 100 ml 480 ml IV Total 2 ml Output Urine Total 0 ml 300 ml 200 ml 2 ml 675 ml # Bowel Movements 1 0 0 Result Diagram: 09/25/16 0610 09/26/16 0826 Objective Remarks GENERAL: Patient was chronically ill who has increased respiratory rate with minimal movement. CARDIOVASCULAR: Regular rate and rhythm without murmurs, gallops, or rubs. RESPIRATORY: Bilateral diffuse crackles. No accessory muscle use. GASTROINTESTINAL: Abdomen soft, non-tender, nondistended. MUSCULOSKELETAL: No cyanosis, or edema. BACK: Nontender without obvious deformity. No CVA tenderness. Medications and IVs Current Medications Iohexol 99 ml 99 ml STK-MED ONCE IV Last administered on 08/26/16 19:12; Start 08/26/16 at 19:12; Stop 08/26/16 at 19:13; Status DC Levofloxacin/ Dextrose (Levaquin 500 Mg Premix Inj) 100 ml @ 100 mls/hr ONCE ONCE IV Last administered on 08/26/16 19:22; Start 08/26/16 at 19:15; Stop at 20:14; Status DC Albuterol/ Ipratropium (Duoneb Neb) 1 ampule Q4HR NEB PRN NEB SOB/WHEEZING Last administered on 08/28/16 11:58; Start 08/26/16 at 20:00; Stop 08/28/16 at 12:35; Status DC Budesonide/ Formoterol Fumarate (Symbicort 160-4.5 Inh) 2 puff Q12HR INH Last administered on 08/29/16 09:12; Start 08/26/16 at 21:00; Stop 08/29/16 at 11:48 ; Status DC Guaifenesin 600 mg 600 mg BID PO Last administered on 09/28/16 09:45; Start at 21:00 Sodium Chloride (NS 1000 ml Inj) 1,000 ml @ 100 mls/hr Q10H IV Last administered on 08/27/16 05:03; Start 08/26/16 at 19:49; Stop 08/27/16 at 14:50 ; Status DC Sodium Chloride (NS Flush) 2 ml UNSCH PRN IV FLUSH FLUSH AFTER USING IV ACCESS Last administered on 09/15/16 01:00; Start 08/26/16 at 20:00 Sodium Chloride (NS Flush) 2 ml BID IV FLUSH Last administered on 09/28/16 09: 44; Start 08/26/16 at 21:00 Ondansetron HCl (Zofran Inj) 4 mg Q6H PRN IVP NAUSEA OR VOMITING Last administered on 09/19/16 22:08; Start 08/26/16 at 20:00 Heparin Sodium (Porcine) (Heparin Inj) 5,000 units Q8H SQ Last administered on 09/16/16 12:57; Start 08/26/16 at 20:00; Stop 09/16/16 at 16:28; Status DC Acetaminophen (Tylenol) 650 mg Q6H PRN PO FEVER/PAIN SCALE 1 TO 2 Last administered on 08/30/16 01:45; Start 08/26/16 at 20:00 Acetaminophen/ Hydrocodone Bitart ([place] 5-325 Mg) 1 tab Q4H PRN PO PAIN SCALE 3 TO 5; Start 08/26/16 at 20:00 Morphine Sulfate (Morphine Inj) 2 mg Q3H PRN IV Pain 6-10 Last administered on 09/27/16 22:08; Start 08/26/16 at 20:00 Senna/Docusate Sodium (Letty-Colace) 1 tab BID PO Last administered on 09:45; Start 08/26/16 at 21:00 Magnesium Hydroxide (Milk Of Magnesia Liq) 30 ml Q12H PRN PO MILD - MODERATE CONSTIPATION; Start 08/26/16 at 20:00 Sennosides (Senokot) 17.2 mg Q12H PRN PO MODERATE - SEVERE CONSTIPATION; Start 08/26/16 at 20:00 Bisacodyl (Dulcolax Supp) 10 mg DAILY PRN RECTAL SEVERE CONSITIPATION; Start at 20:00 Lactulose 30 ml 30 ml DAILY PRN PO SEVERE CONSITIPATION Last administered on 09:06; Start 08/26/16 at 20:00 Levofloxacin/ Dextrose (Levaquin 750 Mg Premix Inj) 150 ml @ 100 mls/hr Q24H IV Last administered on 09/05/16 21:13; Start 08/27/16 at 21:00; Stop at 17:38; Status DC Duloxetine HCl (Cymbalta Dr) 60 mg DAILY PO Last administered on 09/28/16 09: 44; Start 08/27/16 at 09:00 Atorvastatin Calcium (Lipitor) 80 mg DAILY PO Last administered on 09/28/16 09 :45; Start 08/27/16 at 09:00 Tolterodine Tartrate (Detrol La) 2 mg DAILY PO Last administered on 09/28/16 09:45; Start 08/27/16 at 09:00 Furosemide (Lasix Inj) 40 mg STAT ONCE IV PUSH Last administered on 08/28/16 10:34; Start 08/28/16 at 10:30; Stop 08/28/16 at 10:31; Status DC Enalaprilat (Vasotec Inj) 1.25 mg Q6H PRN IV SBP> OR = 180, DBP> OR = 100; Start 08/28/16 at 10:30 Albuterol/ Ipratropium (Duoneb Neb) 1 ampule Q4HR NEB NEB Last administered on 08/29/16 10:56; Start 08/28/16 at 16:00; Stop 08/29/16 at 11:48; Status DC Albuterol/ Ipratropium (Duoneb Neb) 1 ampule Q2HR NEB PRN NEB SHORTNESS OF BREATH Last administered on 09/28/16 02:29; Start 08/28/16 at 12:30; Stop 09/28 at 04:16; Status DC Methylprednisolone Sodium Succinate (SoluMEDROL INJ) 60 mg Q6HR IV PUSH Last administered on 08/28/16 12:43; Start 08/28/16 at 12:30; Stop 08/28/16 at 16:28 ; Status DC Dextrose (D50w (Vial) Inj) 50 ml UNSCH PRN IV HYPOGLYCEMIA-SEE COMMENTS; Start 08/28/16 at 12:30 Glucagon (Glucagon Inj) 1 mg UNSCH PRN OTHER HYPOGLYCEMIA-SEE COMMENTS; Start 08/28/16 at 12:30 Insulin Human Regular (NovoLIN R SUPPLEMENTAL SCALE) 1 Q6HR SQ Last administered on 09/01/16 11:58; Start 08/28/16 at 12:30; Stop 09/01/16 at 13:05 ; Status DC Methylprednisolone Sodium Succinate 40 mg 40 mg Q8HR IV Last administered on 05:14; Start 08/28/16 at 22:00; Stop 08/29/16 at 11:48; Status DC Potassium Chloride 100 ml @ 50 mls/hr Q2H PRN IV For Potassium 2.8 - 3.2 mEq/L ; Start 08/28/16 at 16:30; Stop 09/07/16 at 09:04; Status DC Potassium Chloride (KCl 20 Meq Premix Inj) 100 ml @ 50 mls/hr Q2H PRN IV For Potassium 2.8 - 3.2 mEq/L; Start 08/28/16 at 16:30; Stop 09/07/16 at 09:04; Status DC Potassium Bicarb/ Potassium Chloride 50 meq 50 meq UNSCH PRN PO For Potassium 3.3 - 3.5 mEq/L; Start 08/28/16 at 16:30; Stop 09/07/16 at 09:04; Status DC Potassium Chloride 100 ml @ 25 mls/hr UNSCH PRN IV For Potassium 3.3 - 3.5 mEq /L; Start 08/28/16 at 16:30; Stop 09/07/16 at 09:04; Status DC Potassium Chloride 100 ml @ 50 mls/hr Q2H PRN IV For Potassium 3.3 - 3.5 mEq/L ; Start 08/28/16 at 16:30; Stop 09/07/16 at 09:04; Status DC Magnesium Sulfate/ Sodium Chloride (Magnesium Sulfate Inj/NS Inj) 100 ml @ 50 mls/hr UNSCH PRN IV For Magnesium 0.9 - 1.1 mg/dL; Start 08/28/16 at 16:30; Stop 09/07/16 at 09:05; Status DC Magnesium Oxide 800 mg 800 mg UNSCH PRN PO For Magnesium 1.2 - 1.6 mg/dL; Start 08/28/16 at 16:30; Stop 09/07/16 at 09:05; Status DC Magnesium Sulfate/ Sodium Chloride (Magnesium Sulfate Inj/NS Inj) 100 ml @ 50 mls/hr UNSCH PRN IV For Magnesium 1.2 - 1.6 mg/dL; Start 08/28/16 at 16:30; Stop 09/07/16 at 09:05; Status DC Potassium Phosphate 2000 mg 2,000 mg Q4H PRN PO For Phosphorus < 2.5 mg/dL Last administered on 09/06/16t 14:29; Start 08/28/16 at 16:30; Stop 09/07/16 at 09:06; Status DC Sodium Phosphate/ Sodium Chloride (Sodium Phosphate Inj/NS 250 ml Inj) 250 ml @ 42 mls/hr UNSCH PRN IV For Phosphorus < 2.5 mg/dL; Start 08/28/16 at 16:30; Stop 09/07/16 at 09:06; Status DC Potassium Phosphate 2000 mg 2,000 mg UNSCH PRN PO/TUBE SEE LABEL COMMENTS; Start 08/28/16 at 16:30; Stop 09/07/16 at 09:06; Status DC Potassium Phosphate/Sodium Chloride (Potassium Phosphate Inj/NS 250 ml Inj) 260 ml @ 42 mls/hr UNSCH PRN IV SEE LABEL COMMENTS; Start 08/28/16 at 16:30; Stop 09/07/16 at 09:06; Status DC Miscellaneous Information Patient in critical care unit? Ass... [id number] .XX ; Start 08/28/16 at 19:30 Chlorhexidine Gluconate (Chlorhexidine 2% Cloth) 3 pack DAILY@04 TOPICAL Last administered on 09/02/16 04:00; Start 08/29/16 at 04:00; Stop 09/02/16 at 04:01 ; Status DC Chlorhexidine Gluconate (Chlorhexidine 2% Cloth) 3 pack UNSCH PRN TOPICAL HYGIENIC CARE; Start 08/28/16 at 19:30; Stop 09/02/16 at 19:28; Status DC Albuterol/ Ipratropium (Duoneb Neb) 1 ampule TID NEB NEB Last administered on 09/05/16 07:58; Start 08/29/16 at 14:00; Stop 09/05/16 at 12:37; Status DC Methylprednisolone Sodium Succinate (SoluMEDROL INJ) 60 mg Q8HR IV Last administered on 09/06/16 14:28; Start 08/29/16 at 14:00; Stop 09/06/16 at 17:38 ; Status DC Pantoprazole Sodium (Protonix) 20 mg DAILY PO Last administered on 09/23/16 09: 12; Start 08/29/16 at 11:45; Stop 09/23/16 at 11:47; Status DC Insulin Human Regular (NovoLIN R SUPPLEMENTAL SCALE) 1 ACHS SQ Last administered on 09/28/16 11:00; Start 09/01/16 at 16:00 Polyethylene Glycol (Miralax) 17 gm DAILY PO Last administered on 09/28/16 09: 45; Start 09/02/16 at 09:00 Polyethylene Glycol (Miralax) 17 gm ONCE ONCE PO ; Start 09/01/16 at 13:15; Stop 09/01/16 at 13:16; Status DC Potassium Chloride (KCl) 20 meq ONCE ONCE PO Last administered on 09/03/16 14 :10; Start 09/03/16 at 13:00; Stop 09/03/16 at 13:04; Status DC Furosemide (Lasix Inj) 40 mg ONCE ONCE IV PUSH Last administered on 09/05/16 11:07; Start 09/05/16 at 11:00; Stop 09/05/16 at 11:02; Status DC Furosemide (Lasix Inj) 20 mg BID@09,18 IV PUSH ; Start 09/06/16 at 09:00; Stop 09/06/16 at 09:00; Status DC Albuterol/ Ipratropium (Duoneb Neb) 1 ampule BID NEB NEB Last administered on 09/08/16 08:08; Start 09/05/16 at 20:00; Stop 09/08/16 at 12:15; Status DC Furosemide (Lasix Inj) 20 mg DAILY IV PUSH Last administered on 09/08/16 09:23 ; Start 09/06/16 at 09:00; Stop 09/08/16 at 12:15; Status DC Trimethoprim/ Sulfamethoxazole (Bactrim Ds 800-160 Mg) 1 tab Q24H PO Last administered on 09/12/16 13:33; Start 09/05/16 at 13:00; Stop 09/13/16 at 08:38 ; Status DC Methylprednisolone Sodium Succinate (SoluMEDROL INJ) 60 mg Q12H IV Last administered on 09/07/16 02:14; Start 09/07/16 at 02:00; Stop 09/07/16 at 12:57 ; Status DC Methylprednisolone Sodium Succinate (SoluMEDROL INJ) 40 mg Q12H IV Last administered on 09/08/16 03:05; Start 09/07/16 at 14:00; Stop 09/08/16 at 12:15 ; Status DC Prednisone (Deltasone) 30 mg BID PO Last administered on 09/12/16 08:54; Start 09/08/16 at 13:00; Stop 09/12/16 at 13:02; Status DC Albuterol/ Ipratropium (Duoneb Neb) 1 ampule BID NEB NEB Last administered on 09/18/16 10:29; Start 09/10/16 at 20:00; Stop 09/18/16 at 13:08; Status DC Methylprednisolone Sodium Succinate (SoluMEDROL INJ) 60 mg Q12HR IV PUSH Last administered on 09/13/16 08:26; Start 09/12/16 at 14:00; Stop 09/13/16 at 08:38 ; Status DC Methylprednisolone Sodium Succinate (SoluMEDROL INJ) 60 mg Q8H IV PUSH Last administered on 09/16/16 09:04; Start 09/13/16 at 16:00; Stop 09/16/16 at 11:14 ; Status DC Trimethoprim/ Sulfamethoxazole (Bactrim Ds 800-160 Mg) 1 tab BID PO Last administered on 09/23/16 09:12; Start 09/13/16 at 09:00; Stop 09/23/16 at 13:27; Status DC Methylprednisolone Sodium Succinate (SoluMEDROL INJ) 60 mg Q12HR IV PUSH Last administered on 09/19/16 08:58; Start 09/16/16 at 21:00; Stop 09/19/16 at 11:08; Status DC Enoxaparin Sodium (Lovenox Inj) 40 mg Q24H SQ Last administered on 09/19/16 18: 27; Start 09/17/16 at 18:00; Stop 09/21/16 at 15:54; Status DC Prednisone (Deltasone) 40 mg BID PO Last administered on 09/21/16 11:19; Start 09/19/16 at 21:00; Stop 09/21/16 at 15:13; Status DC Enoxaparin Sodium (Lovenox Inj) 40 mg Q24H SQ Last administered on 09/27/16 16 :40; Start 09/21/16 at 16:00 Prednisone (Deltasone) 30 mg BID PO ; Start 09/21/16 at 21:00; Stop 09/21/16 at 21 :00; Status DC Prednisone (Deltasone) 20 mg BID PO Last administered on 09/23/16 09:12; Start 09/21/16 at 21:00; Stop 09/23/16 at 14:47; Status DC Pantoprazole Sodium (Protonix) 40 mg DAILY PO Last administered on 09/28/16 09 :45; Start 09/24/16 at 09:00 Trimethoprim/ Sulfamethoxazole (Bactrim Ds 800-160 Mg) 1 tab QID PO ; Start 09/23 at 18:00; Stop 09/23/16 at 18:00; Status DC Prednisone (Deltasone) 40 mg BID PO Last administered on 09/26/16 08:11; Start 09/23/16 at 21:00; Stop 09/26/16 at 12:37; Status DC Trimethoprim/ Sulfamethoxazole (Bactrim Ds 800-160 Mg) 2 tab BID PO Last administered on 09/28/16 09:43; Start 09/23/16 at 21:00 Lorazepam (Ativan) 0.5 mg ONCE ONCE PO Last administered on 09/24/16 12:32; Start 09/24/16 at 10:45; Stop 09/24/16 at 10:55; Status DC Lorazepam (Ativan) 0.5 mg Q12H PRN PO anxiety; Start 09/24/16 at 10:45; Stop 09/25/16 at 12:12; Status DC Prednisone (Deltasone) 30 mg BID PO Last administered on 09/28/16 09:44; Start 09/26/16 at 21:00 Alprazolam (Xanax) 0.25 mg Q6H PRN PO sob Last administered on 09/28/16 03:16 ; Start 09/26/16 at 12:45 Albuterol/ Ipratropium (Duoneb Neb) 1 ampule TID NEB NEB Last administered on 09/27/16 19:22; Start 09/26/16 at 14:00; Stop 09/28/16 at 04:16; Status DC Miscellaneous (Pill Splitter) 1 ea UNSCH PRN OTHER SEE LABEL COMMENTS; Start at 13:15 Ipratropium [place] (Atrovent Neb) 0.5 mg Q6HR NEB NEB Last administered on 09:09; Start 09/28/16 at 10:00; Stop 09/28/16 at 13:00; Status DC Ipratropium [place] (Atrovent Neb) 0.5 mg Q2HR NEB PRN NEB wheezing Last administered on 09/28/16 11:45; Start 09/28/16 at 04:15 Ipratropium [place] (Atrovent Neb) 0.5 mg TID NEB NEB ; Start 09/28/16 at 14:00 Alprazolam (Xanax) 0.5 mg ONCE ONCE PO ; Start 09/28/16 at 14:00; Stop at 14:01; Status DC Alprazolam (Xanax) 0.5 mg DAILY PO ; Start 09/29/16 at 09:00 Date of Removal: Sep 04, 2016 A/P Problem List: (1) Hypoxia ICD Code: R09.02 Status: Acute (2) Bandemia ICD Code: D72.825 Status: Acute (3) Dehydration ICD Code: E86.0 Status: Resolved (4) Breast CA ICD Code: C50.919 Status: Acute (5) HTN (hypertension) ICD Code: I10 Status: Acute (6) Acute respiratory failure ICD Code: J96.00 Status: Resolved Assessment and Plan 76 years old female admitted for Acute hypoxemic respiratory failure -Initial CT scan showed extensive ground-glass opacities. Ddx: hypersensitivity pneumonitis vs chemotherapy induced pulmonary toxicity/interstitial pneumonitis -Repeat CT scan showing resolution of the pneumonitis but now showing interstitial fibrosis. -continue to adjust NC -Duo nebs 3 times a day and as needed dyspnea -On Prednisone 40 mg by mouth twice a day per gumming machine operator. -Continue Bactrim. -Oxygen back up to 5 L and she continued to be severely symptomatic. Poor prognosis. -Continue management per Dr. hammond. Interstitial pulmonary fibrosis -Patient now showing development of pulmonary fibrosis. -She continues to desat with minimal improvement. -Extensive education to diagnosis and prognosis discussed with patient. -Poor prognosis. Palliative care following. Triple positive left breast cancer status post Herceptin scan and Taxol 07/15 weekly chemotherapy Normocytic anemia Leukocytosis Monitor CBC daily. Follow trends Anxiety -On Xanax Leukocytosis - Due to steroids. Dysphasia - EGD cancelled due to low 02 saturation- may not tolerate anesthesia -on PPIGI: - speech therapy consult for swallowing evaluation on PPI Dyslipidemia /Stage I diastolic dysfunction/Depression -currently on Lipitor 80 mg by mouth at bedtime for dyslipidemia -2-D echo revealed EF 55%. Stage I diastolic dysfunction. Mild MR. -Continue Cymbalta 60 mg by mouth daily for depression -Continue [place] for pain management Urinary Incontinence- improved -Continue Detrol LA 2 mg by mouth daily Hyper-magnesium -Replace electrolytes as clinically indicated Prophylaxis - GI - Protonix - DVT - SCD/Lovenox Discharge Planning Patient continues to be severely symptomatic with minimal movement. Very Poor prognosis. Hospice spoke to patient and her . At the moment they do not want hospice. Patient has an alternative. She will also continue with medical management. Palliative care is following. Priscilla Rich MD Sep 28, 2016 15:37
[2016-09-28] MEDS: ENOXAPARIN SODIUM 40 MG/0.4 ML SYRINGE SQ SCH (16:29)
[2016-09-29] VITALS (8 sets, daily range): BP systolic 122–147; BP diastolic 66–77; PULSE 97–120; RESP 18–24; TEMP 97.4–97.8; O2SAT 89–93
[2016-09-29] MEDS: RESP: IPRATROPIUM 0.5 MG/2.5 ML NEB NEB PRN
[2016-09-29] MEDS: INSULIN NovoLIN REGULAR SUPPLEMENTAL SCALE SQ SCH ×4 (06:39→22:12)
[2016-09-29] MEDS: RESP: IPRATROPIUM 0.5 MG/2.5 ML NEB NEB SCH ×3 (08:00→19:55)
[2016-09-29] MEDS: SULFAMETHOXAZOLE-TRIMETHOPRIM DS 800-160 MG TAB PO SCH ×2 (08:15→21:56)
[2016-09-29] MEDS: SODIUM CHLORIDE 0.9% FLUSH 10 ML FLUSH IV FLUSH SCH ×2 (09:06→21:56)
[2016-09-29] MEDS: DULoxetine HCl DR 60 MG CAP PO SCH (09:06)
[2016-09-29] MEDS: predniSONE 20 MG TAB PO SCH ×2 (09:07→21:56)
[2016-09-29] MEDS: ALPRAZolam 0.5 MG TAB PO SCH (09:07)
[2016-09-29] MEDS: TOLTERODINE TARTRATE 2 MG CAP LA PO SCH (10:07)
[2016-09-29] MEDS: ATORVASTATIN 80 MG TAB PO SCH (10:08)
[2016-09-29] MEDS: POLYETHYLENE GLYCOL 17 GM PKG PO SCH (10:10)
[2016-09-29] MEDS: guaiFENesin E.R. 600 MG TAB PO SCH ×2 (10:10→21:56)
[2016-09-29] MEDS: DOCUSATE SODIUM 50 MG/SENNA 8.6 MG TAB PO SCH ×2 (10:11→21:00)
[2016-09-29] MEDS: PANTOPRAZOLE SOD 40 MG DELAYED RELEASE TAB PO SCH (10:11)
[2016-09-29] MEDS: MORPHINE SULFATE 4 MG/ML INJ IV PRN (10:15)
--- NOTE | 2016-09-29 13:09 | HHI.PR ---
Subjective Remarks Pt states she thinks she is feeling a little better today. SOB seems to be somewhat improved. Has a dry cough "nothing comes up". Admits to mild chest pains on and off this morning about 2/10 in mid chest but states she thinks it is related to anxiety. none at this time. no nausea or vomiting. Objective Vitals Vital Signs Date Time Temp Pulse Resp B/P Pulse Ox O2 Delivery O2 Flow Rate FiO2 09/29/16 12:00 97.6 114 24 135/66 90 09/29/16 08:00 97.8 108 22 147/77 90 09/29/16 08:00 90 Nasal Cannula 5.00 09/29/16 04:00 97.4 97 23 126/74 92 09/29/16 04:00 Nasal Cannula 5.00 Humidified 09/29/16 00:39 97.5 120 24 147/70 89 09/29/16 00:00 Nasal Cannula 5.00 Humidified 09/28/16 20:00 Nasal Cannula 5.00 Humidified 09/28/16 20:00 103 09/28/16 20:00 97.4 110 22 133/69 94 09/28/16 19:12 95 Nasal Cannula 5.00 09/28/16 17:35 90 Nasal Cannula 5.00 Humidified 09/28/16 17:32 98 09/28/16 16:00 99.0 111 22 128/69 90 I/O 09/28/16 09/28/16 09/28/16 09/29/16 09/29/16 09/29/16 07:00 15:00 23:00 07:00 15:00 23:00 Intake Total 100 ml 480 ml 520 ml 500 ml Output Total 2 ml 675 ml 500 ml 720 ml Balance 98 ml -195 ml 20 ml -220 ml Intake Oral 100 ml 480 ml 520 ml 500 ml IV Total 0 ml Output Urine Total 2 ml 675 ml 500 ml 720 ml # Bowel Movements 0 0 0 0 Result Diagram: 09/25/16 0610 09/26/16825 Imaging Last Impressions Chest X-Ray 09/26/16 0000 Signed Impressions: Service Date/Time: Monday, September 26, 2016 13:03 - CONCLUSION: 1. There diffuse chronic appearing interstitial changes within both lungs these are improved compared to previous dated 09/12/16. Vance Harper MD Chest CT 09/21/16 0000 Signed Impressions: Service Date/Time: Wednesday, September 21, 2016 19:53 - CONCLUSION: 1. Overall groundglass opacity has improved over the last month but with a fairly rapid progression to pulmonary fibrosis in the peripheral upper lungs at a rate typically not seen with idiopathic pulmonary fibrosis. They could still be some underlying idiopathic pulmonary fibrosis findings more characteristic in the lower lobes with early honeycombing, traction bronchiectasis and minimal peripheral distribution. The findings are not classic for usual interstitial pneumonitis and may require open lung biopsy for diagnosis. Checo Conner MD Barium Swallow X-Ray 09/21/16 0000 Signed Impressions: Service Date/Time: Wednesday, September 21, 2016 10:48 - CONCLUSION: 1. Small sliding hiatal hernia at the GE junction. 2. No mechanical obstruction is demonstrated. Ha Guardado MD Lung Scan-V Nuclear Medicine 08/26/16 0000 Signed Impressions: Service Date/Time: Friday, August 26, 2016 20:26 - CONCLUSION: 1. Low probability for pulmonary embolus. Checo Conner MD CT Angiography 08/26/16 0000 Signed Impressions: Service Date/Time: Friday, August 26, 2016 16:50 - CONCLUSION: 1. Negative for pulmonary embolus. Pulmonary fibrosis as above, not easily classifiable. There is also extensive groundglass opacity with lobular sparing. Differential diagnosis includes sequela of drug reaction or subacute hypersensitivity pneumonitis, atypical usual interstitial pneumonitis, or other causes of alveolitis. Checo Conner MD Objective Remarks GENERAL: Patient is chronically ill appearing. pleasant CARDIOVASCULAR: Regular rate and rhythm without murmurs RESPIRATORY: Bilateral diffuse crackles. No accessory muscle use. no wheezing GASTROINTESTINAL: Abdomen soft, non-tender, nondistended. MUSCULOSKELETAL: No cyanosis, or edema. move extremities. PSYCH: pleasant, answers questions appropriately. EYES: EOMI. NECK: trachea midline. Date of Removal: Sep 04, 2016 A/P Problem List: (1) Hypoxia ICD Code: R09.02 Status: Acute (2) Bandemia ICD Code: D72.825 Status: Acute (3) Dehydration ICD Code: E86.0 Status: Resolved (4) Breast CA ICD Code: C50.919 Status: Acute (5) HTN (hypertension) ICD Code: I10 Status: Acute (6) Acute respiratory failure ICD Code: J96.00 Status: Resolved Assessment and Plan 76 years old female admitted for Acute hypoxemic respiratory failure -Initial CT scan showed extensive ground-glass opacities. Ddx: hypersensitivity pneumonitis vs chemotherapy induced pulmonary toxicity/interstitial pneumonitis -Repeat CT scan showing resolution of the pneumonitis but now showing interstitial fibrosis. -continue to adjust NC -Duo nebs 3 times a day and as needed dyspnea -On Prednisone 30 mg by mouth twice a day per content manager. -Continue Bactrim. -Oxygen back up to 5 L and she continued to be severely symptomatic. Poor prognosis. -Continue management per Dr. barrientos. Interstitial pulmonary fibrosis -She continues to desat with minimal improvement. Today states she feels a little bit better -Extensive education to diagnosis and prognosis discussed with patient by prior hospitalist. -Poor prognosis. Palliative care following. Per documentation, Pt not ready to transition to hospice care Triple positive left breast cancer status post Herceptin scan and Taxol 07/15 weekly chemotherapy Normocytic anemia Leukocytosis Monitor CBC daily. Follow trends Anxiety -On Xanax Leukocytosis - Due to steroids. Dysphasia - EGD cancelled due to low 02 saturation- may not tolerate anesthesia -on PPIGI: - speech therapy consult for swallowing evaluation on PPI Dyslipidemia /Stage I diastolic dysfunction/Depression -currently on Lipitor 80 mg by mouth at bedtime for dyslipidemia -2-D echo revealed EF 55%. Stage I diastolic dysfunction. Mild MR. -Continue Cymbalta 60 mg by mouth daily for depression -Continue [place] for pain management Urinary Incontinence- improved -Continue Detrol LA 2 mg by mouth daily Hyper-magnesium -Replace electrolytes as clinically indicated Prophylaxis - GI - Protonix - DVT - SCD/Lovenox Discharge Planning Patient continues to be severely symptomatic with minimal movement. Very poor prognosis. Pt not ready to transition to hospice care. Continue with medical management. Palliative care is following. Annabel Armando MD Sep 29, 2016 13:09
[2016-09-29] MEDS: ENOXAPARIN SODIUM 40 MG/0.4 ML SYRINGE SQ SCH (16:14)
[2016-09-30] VITALS (9 sets, daily range): BP systolic 115–166; BP diastolic 67–78; PULSE 98–112; RESP 18–22; TEMP 97.5–98.3; O2SAT 91–98
[2016-09-30] MEDS: INSULIN NovoLIN REGULAR SUPPLEMENTAL SCALE SQ SCH ×4 (06:16→21:11)
[2016-09-30] MEDS: RESP: IPRATROPIUM 0.5 MG/2.5 ML NEB NEB SCH ×3 (08:06→19:21)
[2016-09-30 08:28] LABS: BICARBONATE 27.2 MEQ/L (21.0-32.0); POTASSIUM 4.7 MEQ/L (3.5-5.1)
[2016-09-30] MEDS: ATORVASTATIN 80 MG TAB PO SCH (09:13)
[2016-09-30] MEDS: SULFAMETHOXAZOLE-TRIMETHOPRIM DS 800-160 MG TAB PO SCH ×2 (09:13→20:59)
[2016-09-30] MEDS: DULoxetine HCl DR 60 MG CAP PO SCH (09:13)
[2016-09-30] MEDS: guaiFENesin E.R. 600 MG TAB PO SCH ×2 (09:15→20:58)
[2016-09-30] MEDS: PANTOPRAZOLE SOD 40 MG DELAYED RELEASE TAB PO SCH (09:16)
[2016-09-30] MEDS: POLYETHYLENE GLYCOL 17 GM PKG PO SCH (09:16)
[2016-09-30] MEDS: DOCUSATE SODIUM 50 MG/SENNA 8.6 MG TAB PO SCH ×2 (09:16→20:59)
[2016-09-30] MEDS: TOLTERODINE TARTRATE 2 MG CAP LA PO SCH (09:16)
[2016-09-30] MEDS: SODIUM CHLORIDE 0.9% FLUSH 10 ML FLUSH IV FLUSH SCH ×2 (09:17→20:59)
[2016-09-30] MEDS: ALPRAZolam 0.5 MG TAB PO SCH (09:17)
[2016-09-30] MEDS: predniSONE 20 MG TAB PO SCH ×2 (09:17→20:59)
--- NOTE | 2016-09-30 09:50 | PD.ONC.PN ---
Subjective Subjective Remarks Afebrile overnight. "I feel better today." Friend at bedside. Objective Data Date Time Temp Pulse Resp B/P Pulse Ox O2 Delivery O2 Flow Rate FiO2 09/30/16 08:07 92 Nasal Cannula 4.00 09/30/16 08:00 97.5 98 22 142/78 95 09/30/16 04:00 Nasal Cannula 5.00 Humidified 09/30/16 04:00 97.8 104 20 126/73 94 09/30/16 00:00 Nasal Cannula 5.00 Humidified 09/30/16 00:00 97.6 111 18 137/72 93 09/29/16 20:00 97.6 119 18 131/68 91 09/29/16 20:00 112 09/29/16 20:00 Nasal Cannula 5.00 Humidified 09/29/16 19:57 93 Nasal Cannula 4.00 09/29/16 16:16 90 Nasal Cannula 5.00 Humidified 09/29/16 16:00 97.8 107 22 122/70 90 09/29/16 15:24 90 Nasal Cannula 5.00 Humidified 09/29/16 14:38 114 09/29/16 13:35 20 09/29/16 12:00 97.6 114 24 135/66 90 09/30/16 09/30/16 09/30/16 07:00 15:00 23:00 Output Total 300 ml Balance -300 ml Result Diagram: 09/30/16 0719 Laboratory Results Laboratory Tests Test 09/30/16 07:19 Sodium Level 133 MEQ/L Potassium Level 4.7 MEQ/L Chloride Level 99 MEQ/L Carbon Dioxide Level 27.2 MEQ/L Anion Gap 7 MEQ/L Blood Urea Nitrogen 20 MG/DL Creatinine 0.65 MG/DL Estimat Glomerular Filtration 88 ML/MIN Rate Random Glucose 121 MG/DL Calcium Level 9.0 MG/DL Administered Medications Medications (Trade) Dose Ordered Sig/Aurelia Route PRN Reason Start Time Stop Time Status Last Admin Dose Admin Guaifenesin (Mucinex Er) 600 mg BID PO 08/26/16 21:00 09/30/16 09:15 Sodium Chloride (NS Flush) 2 ml UNSCH PRN IV FLUSH FLUSH AFTER USING IV ACCESS 08/26/16 20:00 09/15/16 01:00 Sodium Chloride (NS Flush) 2 ml BID IV FLUSH 08/26/16 21:00 09/30/16 09:17 Ondansetron HCl (Zofran Inj) 4 mg Q6H PRN IVP NAUSEA OR VOMITING 08/26/16 20:00 09/19/16 22:08 Acetaminophen (Tylenol) 650 mg Q6H PRN PO FEVER/PAIN SCALE 1 TO 2 08/26/16 20:00 08/30/16 01:45 Morphine Sulfate (Morphine Inj) 2 mg Q3H PRN IV Pain 08-2708/26/16 20:00 09/29/16 10:15 Senna/Docusate Sodium (Letty-Colace) 1 tab BID PO 08/26/16 21:00 09/30/16 09:16 Lactulose (Lactulose Liq) 30 ml DAILY PRN PO SEVERE CONSITIPATION 08/26/16 20:00 09/01/16 09:06 Duloxetine HCl (Cymbalta Dr) 60 mg DAILY PO 08/27/16 09:00 09/30/16 09:13 Atorvastatin Calcium (Lipitor) 80 mg DAILY PO 08/27/16 09:00 09/30/16 09:13 Tolterodine Tartrate (Detrol La) 2 mg DAILY PO 08/27/16 09:00 09/30/16 09:16 Insulin Human Regular (NovoLIN R SUPPLEMENTAL SCALE) 1 ACHS SQ 09/01/16 16:00 09/29/16 22:12 Polyethylene Glycol (Miralax) 17 gm DAILY PO 09/02/16 09:00 09/30/16 09:16 Enoxaparin Sodium (Lovenox Inj) 40 mg Q24H SQ 09/21/16 16:00 09/29/16 16:14 Pantoprazole Sodium (Protonix) 40 mg DAILY PO 09/24/16 09:00 09/30/16 09:16 Trimethoprim/ Sulfamethoxazole (Bactrim Ds 800-160 Mg) 2 tab BID PO 09/23/16 21:00 09/30/16 09:13 Prednisone (Deltasone) 30 mg BID PO 09/26/16 21:00 09/30/16 09:17 Alprazolam (Xanax) 0.25 mg Q6H PRN PO sob 09/26/16 12:45 09/28/16 21:39 Alprazolam (Xanax) 0.5 mg DAILY PO 09/29/16 09:00 09/30/16 09:17 Objective Remarks GENERAL: Elderly female upright in bed, talking with friend on 4L O2 via NC SKIN: Warm and dry. HEAD: Normocephalic. EYES: No injection or drainage. NECK: Supple, trachea midline. CARDIOVASCULAR: +S1/S2 RESPIRATORY: diminished at bases, scattered rhonchi. GASTROINTESTINAL: Abdomen soft, non-tender, nondistended. EXTREMITIES: No cyanosis NEUROLOGICAL: awake and alert, normal speech Assessment/Plan Problem List: (1) Hypoxia Status: Acute Plan: 09/29: patient wants to continue current management. monitor for improvement. --ECHO = no decrease LVEF --pulmonary toxicity either due to Herceptin or Taxol --dr. Hammond, pulmonology following -- CT on 09/21 shows overall improvement of groundglass opacity (2) Breast CA Status: Acute Plan: no further chemo. --started on weekly Herceptin and Taxol chemotherapy on July 15. Assessment 76y/o with triple positive left breast cancer admitted with respiratory insufficiency. Attending Statement no new c/o still require O2 at 4 liters Continue steroids Will follow Josey Shepherd Sep 30, 2016 09:50 Tiburcio Kirk MD Sep 30, 2016 10:33
[2016-09-30] MEDS: ALPRAZolam 0.25 MG TAB PO PRN ×2 (11:18→21:03)
--- NOTE | 2016-09-30 13:54 | HHI.PR ---
Subjective Remarks Patient is feeling a little better today. Denies any chest pain, shortness of breath, nausea or vomiting. Discussed with patient about the possible necessity of going to rehabilitation when she gets discharged, once her respiratory status is better. She is agreeable with this plan all of her first preference would be to go home Objective Vitals Vital Signs Date Time Temp Pulse Resp B/P Pulse Ox O2 Delivery O2 Flow Rate FiO2 09/30/16 12:00 98.3 104 22 124/67 95 09/30/16 08:07 92 Nasal Cannula 4.00 09/30/16 08:00 92 Nasal Cannula 4.00 09/30/16 08:00 104 09/30/16 08:00 97.5 98 22 142/78 95 09/30/16 04:00 Nasal Cannula 5.00 Humidified 09/30/16 04:00 97.8 104 20 126/73 94 09/30/16 00:00 Nasal Cannula 5.00 Humidified 09/30/16 00:00 97.6 111 18 137/72 93 09/29/16 20:00 97.6 119 18 131/68 91 09/29/16 20:00 112 09/29/16 20:00 Nasal Cannula 5.00 Humidified 09/29/16 19:57 93 Nasal Cannula 4.00 09/29/16 16:16 90 Nasal Cannula 5.00 Humidified 09/29/16 16:00 97.8 107 22 122/70 90 09/29/16 15:24 90 Nasal Cannula 5.00 Humidified 09/29/16 14:38 114 I/O 09/29/16 09/29/16 09/29/16 09/30/16 09/30/16 09/30/16 06:59 14:59 22:59 06:59 14:59 22:59 Intake Total 500 ml 1440 ml 120 ml Output Total 720 ml 1600 ml 0 ml 300 ml Balance -220 ml -160 ml 120 ml -300 ml Intake Oral 500 ml 1440 ml 120 ml Output Urine Total 720 ml 1600 ml 0 ml 300 ml # Bowel Movements 0 0 Result Diagram: 09/30/16 0719 Imaging Last Impressions Chest X-Ray 09/26/16 0000 Signed Impressions: Service Date/Time: Monday, September 26, 2016 13:03 - CONCLUSION: 1. There diffuse chronic appearing interstitial changes within both lungs these are improved compared to previous dated 09/12/16. Vance Harper MD Chest CT 09/21/16 0000 Signed Impressions: Service Date/Time: Wednesday, September 21, 2016 19:53 - CONCLUSION: 1. Overall groundglass opacity has improved over the last month but with a fairly rapid progression to pulmonary fibrosis in the peripheral upper lungs at a rate typically not seen with idiopathic pulmonary fibrosis. They could still be some underlying idiopathic pulmonary fibrosis findings more characteristic in the lower lobes with early honeycombing, traction bronchiectasis and minimal peripheral distribution. The findings are not classic for usual interstitial pneumonitis and may require open lung biopsy for diagnosis. Checo Conner MD Barium Swallow X-Ray 09/21/16 0000 Signed Impressions: Service Date/Time: Wednesday, September 21, 2016 10:48 - CONCLUSION: 1. Small sliding hiatal hernia at the GE junction. 2. No mechanical obstruction is demonstrated. Ha Guardado MD Lung Scan-V Nuclear Medicine 08/26/16 0000 Signed Impressions: Service Date/Time: Friday, August 26, 2016 20:26 - CONCLUSION: 1. Low probability for pulmonary embolus. Checo Conner MD CT Angiography 08/26/16 0000 Signed Impressions: Service Date/Time: Friday, August 26, 2016 16:50 - CONCLUSION: 1. Negative for pulmonary embolus. Pulmonary fibrosis as above, not easily classifiable. There is also extensive groundglass opacity with lobular sparing. Differential diagnosis includes sequela of drug reaction or subacute hypersensitivity pneumonitis, atypical usual interstitial pneumonitis, or other causes of alveolitis. Checo Conner MD Objective Remarks GENERAL: Patient is chronically ill appearing. pleasant CARDIOVASCULAR: Regular rate and rhythm without murmurs RESPIRATORY: Bilateral diffuse crackles. No accessory muscle use. no wheezing GASTROINTESTINAL: Abdomen soft, non-tender, nondistended. MUSCULOSKELETAL: No edema. move extremities. PSYCH: pleasant, answers questions appropriately. EYES: EOMI. NECK: trachea midline. Date of Removal: Sep 04, 2016 A/P Problem List: (1) Hypoxia ICD Code: R09.02 Status: Acute (2) Bandemia ICD Code: D72.825 Status: Acute (3) Dehydration ICD Code: E86.0 Status: Resolved (4) Breast CA ICD Code: C50.919 Status: Acute (5) HTN (hypertension) ICD Code: I10 Status: Acute (6) Acute respiratory failure ICD Code: J96.00 Status: Resolved Assessment and Plan 76 years old female admitted for Acute hypoxemic respiratory failure -Initial CT scan showed extensive ground-glass opacities. -Repeat CT scan showing resolution of the pneumonitis but now showing interstitial fibrosis. -continue to adjust NC -Duo nebs 3 times a day and as needed dyspnea -On Prednisone 30 mg by mouth twice a day per motion study technician. I did discuss case w Dr. Hammond today, pulm, and he feels that pt does have potential to get better w time. For now, he recommends continuing current management and agrees that she will need rehab upon discharge, maybe [facility]? -Continue Bactrim. -Oxygen back up to 5 L and she continued to be severely symptomatic. Poor prognosis. Interstitial pulmonary fibrosis -She continues to desat with minimal improvement. Today states she feels a little bit better -Extensive education to diagnosis and prognosis discussed with patient by prior hospitalist. -Poor prognosis however, per Dr. Hammond she does have the potential to get better w time. Palliative care following. Per documentation, Pt not ready to transition to hospice care Triple positive left breast cancer status post Herceptin scan and Taxol 07/15 weekly chemotherapy Normocytic anemia Leukocytosis Monitor CBC daily. Follow trends Anxiety -On Xanax Leukocytosis - Due to steroids. Dysphasia - EGD cancelled due to low 02 saturation- may not tolerate anesthesia -on PPIGI: - speech therapy consult for swallowing evaluation on PPI Dyslipidemia /Stage I diastolic dysfunction/Depression -currently on Lipitor 80 mg by mouth at bedtime for dyslipidemia -2-D echo revealed EF 55%. Stage I diastolic dysfunction. Mild MR. -Continue Cymbalta 60 mg by mouth daily for depression -Continue [place] for pain management Urinary Incontinence- improved -Continue Detrol LA 2 mg by mouth daily Hyper-magnesium -Replace electrolytes as clinically indicated Prophylaxis - GI - Protonix - DVT - SCD/Lovenox Discharge Planning Patient continues to be severely symptomatic with minimal movement. Pt not ready to transition to hospice care. Continue with medical management for now, will need rehab upon discharge and I did bring this up today w patient and she seems agreeable to it. I also spoke w Dr. Hammond who agrees w rehab however pt not yet ready for discharge. Palliative care is following. Annabel Armando MD Sep 30, 2016 13:54
[2016-09-30] MEDS: ENOXAPARIN SODIUM 40 MG/0.4 ML SYRINGE SQ SCH (16:00)
[2016-10-01] VITALS (8 sets, daily range): BP systolic 126–142; BP diastolic 67–83; PULSE 97–110; RESP 18–20; TEMP 97.4–97.9; O2SAT 90–96
[2016-10-01] MEDS: MORPHINE SULFATE 4 MG/ML INJ IV PRN ×3 (00:18→22:00)
[2016-10-01] MEDS: ALPRAZolam 0.25 MG TAB PO PRN (05:53)
[2016-10-01] MEDS: INSULIN NovoLIN REGULAR SUPPLEMENTAL SCALE SQ SCH ×4 (05:53→21:00)
[2016-10-01] MEDS: RESP: IPRATROPIUM 0.5 MG/2.5 ML NEB NEB SCH ×3 (08:49→21:19)
[2016-10-01] MEDS: SODIUM CHLORIDE 0.9% FLUSH 10 ML FLUSH IV FLUSH SCH ×2 (09:00→21:58)
[2016-10-01] MEDS: DOCUSATE SODIUM 50 MG/SENNA 8.6 MG TAB PO SCH ×2 (09:00→21:58)
[2016-10-01] MEDS: ATORVASTATIN 80 MG TAB PO SCH (09:00)
[2016-10-01] MEDS: TOLTERODINE TARTRATE 2 MG CAP LA PO SCH (09:00)
[2016-10-01] MEDS: SULFAMETHOXAZOLE-TRIMETHOPRIM DS 800-160 MG TAB PO SCH ×2 (09:01→21:58)
[2016-10-01] MEDS: guaiFENesin E.R. 600 MG TAB PO SCH ×2 (09:01→21:58)
[2016-10-01] MEDS: POLYETHYLENE GLYCOL 17 GM PKG PO SCH (09:01)
[2016-10-01] MEDS: PANTOPRAZOLE SOD 40 MG DELAYED RELEASE TAB PO SCH (09:01)
[2016-10-01] MEDS: predniSONE 20 MG TAB PO SCH ×2 (09:01→21:58)
[2016-10-01] MEDS: DULoxetine HCl DR 60 MG CAP PO SCH (09:01)
--- NOTE | 2016-10-01 12:00 | HHI.PR ---
Subjective Remarks Follow-up respiratory failure, breast cancer. Patient states that she feels a little better today. Still with shortness of breath with any exertion. Denies chest pain, nausea, vomiting. Objective Vitals Vital Signs Date Time Temp Pulse Resp B/P Pulse Ox O2 Delivery O2 Flow Rate FiO2 10/01/16 08:00 97.4 110 20 142/74 91 10/01/16 04:00 97.9 106 18 126/67 95 10/01/16 00:00 97.8 110 18 136/81 93 09/30/16 20:09 110 09/30/16 20:00 97.6 112 20 166/74 91 09/30/16 20:00 Nasal Cannula 5.00 Humidified 09/30/16 19:21 94 Nasal Cannula 4.00 09/30/16 16:00 97.6 101 21 115/71 98 09/30/16 12:00 98.3 104 22 124/67 95 I/O 09/30/16 09/30/16 09/30/16 10/01/16 10/01/16 10/01/16 07:00 15:00 23:00 07:00 15:00 23:00 Intake Total 680 ml 120 ml 120 ml Output Total 300 ml 300 ml 400 ml Balance -300 ml 380 ml 120 ml -280 ml Intake Oral 680 ml 120 ml 120 ml Output Urine Total 300 ml 300 ml 400 ml # Bowel Movements 0 Result Diagram: 09/30/16 0719 Imaging Last Impressions Chest X-Ray 09/26/16 0000 Signed Impressions: Service Date/Time: Monday, September 26, 2016 13:03 - CONCLUSION: 1. There diffuse chronic appearing interstitial changes within both lungs these are improved compared to previous dated 09/12/16. Vance Harper MD Chest CT 09/21/16 0000 Signed Impressions: Service Date/Time: Wednesday, September 21, 2016 19:53 - CONCLUSION: 1. Overall groundglass opacity has improved over the last month but with a fairly rapid progression to pulmonary fibrosis in the peripheral upper lungs at a rate typically not seen with idiopathic pulmonary fibrosis. They could still be some underlying idiopathic pulmonary fibrosis findings more characteristic in the lower lobes with early honeycombing, traction bronchiectasis and minimal peripheral distribution. The findings are not classic for usual interstitial pneumonitis and may require open lung biopsy for diagnosis. Checo Conner MD Barium Swallow X-Ray 09/21/16 0000 Signed Impressions: Service Date/Time: Wednesday, September 21, 2016 10:48 - CONCLUSION: 1. Small sliding hiatal hernia at the GE junction. 2. No mechanical obstruction is demonstrated. Ha Guardado MD Lung Scan-VQ Nuclear Medicine 08/26/16 0000 Signed Impressions: Service Date/Time: Friday, August 26, 2016 20:26 - CONCLUSION: 1. Low probability for pulmonary embolus. Checo Conner MD CT Angiography 08/26/16 0000 Signed Impressions: Service Date/Time: Friday, August 26, 2016 16:50 - CONCLUSION: 1. Negative for pulmonary embolus. Pulmonary fibrosis as above, not easily classifiable. There is also extensive groundglass opacity with lobular sparing. Differential diagnosis includes sequela of drug reaction or subacute hypersensitivity pneumonitis, atypical usual interstitial pneumonitis, or other causes of alveolitis. Checo Conner MD Objective Remarks General: Elderly female in no acute distress. Heart: Regular rate and rhythm. No murmur. Lungs: Bilateral crackles. Breathing is nonlabored. Abdomen: Soft, nontender, nondistended. Extremities: No lower extremity edema. Psych: Alert and oriented. Procedures None Urinary Catheter: No Date of Removal: Sep 04, 2016 Vascular Central Line Catheter: No A/P Problem List: (1) Hypoxia ICD Code: R09.02 Status: Acute (2) Bandemia ICD Code: D72.825 Status: Acute (3) Dehydration ICD Code: E86.0 Status: Resolved (4) Breast CA ICD Code: C50.919 Status: Acute (5) HTN (hypertension) ICD Code: I10 Status: Acute (6) Acute respiratory failure ICD Code: J96.00 Status: Resolved Assessment and Plan 1. Acute hypoxemic respiratory failure: Improved. Patient still requiring supplemental oxygen. Continue DuoNeb, prednisone, Bactrim. Repeat CT scan shows interstitial fibrosis. 2. Triple positive left breast cancer: Appreciate oncology recommendations. Palliative care following. Patient not ready to transition to hospice care. 3. Anxiety: Xanax as needed. 4. Leukocytosis: Secondary to steroids. 5. Dysphagia: EGD canceled secondary to hypoxia. Continue PPI. 6. Dyslipidemia: Continue statin. 7. Urinary incontinence: Continue Detrol LA. 8. GI prophylaxis: Protonix. 9. DVT prophylaxis: SCDs, Lovenox. Lionel Muhammad MD Oct 01, 2016 12:00
[2016-10-01] MEDS: ALPRAZolam 0.5 MG TAB PO SCH (14:07)
[2016-10-01] MEDS: ENOXAPARIN SODIUM 40 MG/0.4 ML SYRINGE SQ SCH (16:02)
[2016-10-02] VITALS (11 sets, daily range): BP systolic 117–141; BP diastolic 60–80; PULSE 82–110; RESP 20–23; TEMP 97.2–97.5; O2SAT 90–96
[2016-10-02] MEDS: INSULIN NovoLIN REGULAR SUPPLEMENTAL SCALE SQ SCH ×4 (06:02→21:00)
[2016-10-02] MEDS: RESP: IPRATROPIUM 0.5 MG/2.5 ML NEB NEB SCH ×3 (07:25→19:05)
[2016-10-02] MEDS: DULoxetine HCl DR 60 MG CAP PO SCH (08:56)
[2016-10-02] MEDS: SULFAMETHOXAZOLE-TRIMETHOPRIM DS 800-160 MG TAB PO SCH ×2 (08:56→21:37)
[2016-10-02] MEDS: TOLTERODINE TARTRATE 2 MG CAP LA PO SCH (08:56)
[2016-10-02] MEDS: POLYETHYLENE GLYCOL 17 GM PKG PO SCH (08:56)
[2016-10-02] MEDS: ALPRAZolam 0.5 MG TAB PO SCH (08:57)
[2016-10-02] MEDS: predniSONE 20 MG TAB PO SCH ×2 (08:57→21:37)
[2016-10-02] MEDS: guaiFENesin E.R. 600 MG TAB PO SCH ×2 (08:57→21:37)
[2016-10-02] MEDS: PANTOPRAZOLE SOD 40 MG DELAYED RELEASE TAB PO SCH ×2 (08:57→21:37)
[2016-10-02] MEDS: DOCUSATE SODIUM 50 MG/SENNA 8.6 MG TAB PO SCH ×2 (08:57→21:37)
[2016-10-02] MEDS: ATORVASTATIN 80 MG TAB PO SCH (08:57)
[2016-10-02] MEDS: SODIUM CHLORIDE 0.9% FLUSH 10 ML FLUSH IV FLUSH SCH ×2 (08:57→21:38)
--- NOTE | 2016-10-02 10:20 | HHI.PR ---
Subjective Remarks Follow-up respiratory failure, breast cancer. Objective Vitals Vital Signs Date Time Temp Pulse Resp B/P Pulse Ox O2 Delivery O2 Flow Rate FiO2 10/02/16 08:00 97.3 92 23 141/69 95 10/02/16 07:26 96 Nasal Cannula 5.00 10/02/16 04:00 Nasal Cannula 5.00 Humidified 10/02/16 04:00 97.3 91 20 117/60 95 10/02/16 00:00 Nasal Cannula 5.00 Humidified 10/02/16 00:00 97.5 99 20 130/66 94 10/01/16 21:21 96 Nasal Cannula 6.00 10/01/16 20:00 Nasal Cannula 5.00 Humidified 10/01/16 20:00 97.4 99 20 134/83 96 10/01/16 19:56 97 10/01/16 14:12 20 10/01/16 12:00 97.6 103 20 136/83 90 I/O 10/01/16 10/01/16 10/01/16 10/02/16 10/02/16 10/02/16 06:59 14:59 22:59 06:59 14:59 22:59 Intake Total 120 ml 240 ml 120 ml Output Total 400 ml 500 ml Balance -280 ml -260 ml 120 ml Intake Oral 120 ml 240 ml 120 ml Output Urine Total 400 ml 500 ml # Voids 0 # Bowel Movements 0 0 Result Diagram: 09/30/16 0719 Imaging Last Impressions Chest X-Ray 09/26/16 0000 Signed Impressions: Service Date/Time: Monday, September 26, 2016 13:03 - CONCLUSION: 1. There diffuse chronic appearing interstitial changes within both lungs these are improved compared to previous dated 09/12/16. Vance Harper MD Chest CT 09/21/16 0000 Signed Impressions: Service Date/Time: Wednesday, September 21, 2016 19:53 - CONCLUSION: 1. Overall groundglass opacity has improved over the last month but with a fairly rapid progression to pulmonary fibrosis in the peripheral upper lungs at a rate typically not seen with idiopathic pulmonary fibrosis. They could still be some underlying idiopathic pulmonary fibrosis findings more characteristic in the lower lobes with early honeycombing, traction bronchiectasis and minimal peripheral distribution. The findings are not classic for usual interstitial pneumonitis and may require open lung biopsy for diagnosis. Checo Conner MD Barium Swallow X-Ray 09/21/16 0000 Signed Impressions: Service Date/Time: Wednesday, September 21, 2016 10:48 - CONCLUSION: 1. Small sliding hiatal hernia at the GE junction. 2. No mechanical obstruction is demonstrated. Ha Guardado MD Lung Scan-VQ Nuclear Medicine 08/26/16 0000 Signed Impressions: Service Date/Time: Friday, August 26, 2016 20:26 - CONCLUSION: 1. Low probability for pulmonary embolus. Checo Conner MD CT Angiography 08/26/16 0000 Signed Impressions: Service Date/Time: Friday, August 26, 2016 16:50 - CONCLUSION: 1. Negative for pulmonary embolus. Pulmonary fibrosis as above, not easily classifiable. There is also extensive groundglass opacity with lobular sparing. Differential diagnosis includes sequela of drug reaction or subacute hypersensitivity pneumonitis, atypical usual interstitial pneumonitis, or other causes of alveolitis. Checo Conner MD Objective Remarks General: Elderly female in no acute distress. Heart: Regular rate and rhythm. No murmur. Lungs: Bilateral crackles. Breathing is nonlabored. Abdomen: Soft, nontender, nondistended. Extremities: No lower extremity edema. Psych: Alert and oriented. Procedures None Urinary Catheter: No Date of Removal: Sep 04, 2016 Vascular Central Line Catheter: No A/P Problem List: (1) Hypoxia ICD Code: R09.02 Status: Acute (2) Bandemia ICD Code: D72.825 Status: Acute (3) Dehydration ICD Code: E86.0 Status: Resolved (4) Breast CA ICD Code: C50.919 Status: Chronic (5) HTN (hypertension) ICD Code: I10 Status: Chronic (6) Acute respiratory failure ICD Code: J96.00 Status: Resolved Assessment and Plan 1. Acute hypoxemic respiratory failure: Improved. Patient still requiring supplemental oxygen. Continue DuoNeb, prednisone, Bactrim. Repeat CT scan shows interstitial fibrosis. 2. Triple positive left breast cancer: Appreciate oncology recommendations. Palliative care following. Patient not ready to transition to hospice care. 3. Anxiety: Xanax as needed. 4. Leukocytosis: Secondary to steroids. 5. Dysphagia: EGD canceled secondary to hypoxia. Increase Protonix to twice a day. 6. Dyslipidemia: Continue statin. 7. Urinary incontinence: Continue Detrol LA. 8. GI prophylaxis: Protonix. 9. DVT prophylaxis: SCDs, Lovenox. 10. Insomnia: Patient has been taking morphine at night to help her get to sleep. She would prefer a different medication for sleep. Add Restoril as needed. Lionel Muhammad MD Oct 02, 2016 10:20
[2016-10-02] MEDS: ALPRAZolam 0.25 MG TAB PO PRN (17:35)
[2016-10-02] MEDS: ENOXAPARIN SODIUM 40 MG/0.4 ML SYRINGE SQ SCH (17:35)
[2016-10-02] MEDS: TEMAZEPAM 7.5 MG CAP PO PRN (21:37)
[2016-10-03] VITALS (10 sets, daily range): BP systolic 113–151; BP diastolic 65–83; PULSE 72–113; RESP 17–24; TEMP 97.2–98.5; O2SAT 90–98
[2016-10-03] MEDS: INSULIN NovoLIN REGULAR SUPPLEMENTAL SCALE SQ SCH ×4 (06:04→21:00)
[2016-10-03 08:44] LABS: AUTOMATED NEUTROPHIL # 10.4 TH/MM3 (1.8-7.7); BASOPHIL % 0.2 % (0.0-2.0); EOSINOPHIL % 0.2 % (0.0-4.0); HEMATOCRIT 36.4 % (35.0-46.0); LYMPH % 9.4 % (9.0-44.0); LYMPHOCYTE # 1.2 TH/MM3 (1.0-4.8); MEAN CELL VOLUME 88.8 FL (80.0-100.0); MEAN CORPUSCULAR HEMOGLOBIN 29.3 PG (27.0-34.0); MONO % 5.5 % (0.0-8.0); NEUT % 84.7 % (16.0-70.0); PLATELET COUNT 173 TH/MM3 (150-450); RED CELL DISTRIBUTION WIDTH 19.3 % (11.6-17.2); WHITE BLOOD COUNT 12.3 TH/MM3 (4.0-11.0)
[2016-10-03 08:52] LABS: HEMO FLAGS AUTO DIFF
[2016-10-03] MEDS: RESP: IPRATROPIUM 0.5 MG/2.5 ML NEB NEB SCH ×3 (09:00→20:51)
[2016-10-03 09:05] LABS: BANDS 2 % (0-6); NEUTROPHIL # MANUAL DIFF 10.3 TH/MM3 (1.8-7.7); POLYS (SEG NEUTROPHILS) 82 % (16-70); WBC DIFF SAMPLE 100
[2016-10-03 09:07] LABS: OVALOCYTES 1+ (NORMAL); PLATELET ESTIMATE SMEAR NORMAL (NORMAL); PLATELET MORPHOLOGY NORMAL (NORMAL); SCAN/DIFF FINAL DIFF MANUAL
[2016-10-03 09:10] LABS: BICARBONATE 21.7 MEQ/L (21.0-32.0); POTASSIUM 4.6 MEQ/L (3.5-5.1)
[2016-10-03] MEDS: ALPRAZolam 0.5 MG TAB PO SCH (09:15)
[2016-10-03] MEDS: POLYETHYLENE GLYCOL 17 GM PKG PO SCH (09:15)
[2016-10-03] MEDS: predniSONE 20 MG TAB PO SCH (09:15)
[2016-10-03] MEDS: ATORVASTATIN 80 MG TAB PO SCH (09:15)
[2016-10-03] MEDS: SULFAMETHOXAZOLE-TRIMETHOPRIM DS 800-160 MG TAB PO SCH ×2 (09:16→21:58)
[2016-10-03] MEDS: DULoxetine HCl DR 60 MG CAP PO SCH (09:16)
[2016-10-03] MEDS: TOLTERODINE TARTRATE 2 MG CAP LA PO SCH (09:16)
[2016-10-03] MEDS: PANTOPRAZOLE SOD 40 MG DELAYED RELEASE TAB PO SCH ×2 (09:16→21:58)
[2016-10-03] MEDS: DOCUSATE SODIUM 50 MG/SENNA 8.6 MG TAB PO SCH ×2 (09:16→21:58)
[2016-10-03] MEDS: guaiFENesin E.R. 600 MG TAB PO SCH ×2 (09:16→21:58)
[2016-10-03] MEDS: SODIUM CHLORIDE 0.9% FLUSH 10 ML FLUSH IV FLUSH SCH ×2 (09:28→21:58)
--- NOTE | 2016-10-03 11:17 | HHI.PR ---
Subjective Remarks Follow-up respiratory failure. Patient is feeling better today. Still becomes dyspneic with any exertion. Bumped up to 5 L of oxygen this morning. Objective Vitals Vital Signs Date Time Temp Pulse Resp B/P Pulse Ox O2 Delivery O2 Flow Rate FiO2 10/03/16 09:01 90 Nasal Cannula 4.00 10/03/16 08:20 Nasal Cannula 4.00 Humidified 10/03/16 08:20 105 10/03/16 08:00 97.4 113 20 151/83 92 10/03/16 04:00 Nasal Cannula 4.00 Humidified 10/03/16 04:00 97.9 104 17 144/74 93 10/03/16 00:00 Nasal Cannula 4.00 Humidified 10/03/16 00:00 97.2 99 24 113/65 97 10/02/16 20:22 107 10/02/16 20:00 97.2 110 22 135/80 93 10/02/16 20:00 Nasal Cannula 4.00 Humidified 10/02/16 19:13 96 Nasal Cannula 4.00 10/02/16 17:40 90 Nasal Cannula 5.00 10/02/16 16:00 97.2 99 21 126/67 91 10/02/16 12:00 97.3 82 21 119/78 93 I/O 10/02/16 10/02/16 10/02/16 10/03/16 10/03/16 10/03/16 07:00 15:00 23:00 07:00 15:00 23:00 Intake Total 120 ml 240 ml Output Total 0 ml Balance 120 ml 240 ml 0 ml Intake Oral 120 ml 240 ml Output Urine Total 0 ml # Voids 0 2 1 # Bowel Movements 0 1 0 0 Result Diagram: 10/03/16 0720 10/03/16 0720 Imaging Last Impressions Chest X-Ray 09/26/16 0000 Signed Impressions: Service Date/Time: Monday, September 26, 2016 13:03 - CONCLUSION: 1. There diffuse chronic appearing interstitial changes within both lungs these are improved compared to previous dated 09/12/16. Vance Harper MD Chest CT 09/21/16 0000 Signed Impressions: Service Date/Time: Wednesday, September 21, 2016 19:53 - CONCLUSION: 1. Overall groundglass opacity has improved over the last month but with a fairly rapid progression to pulmonary fibrosis in the peripheral upper lungs at a rate typically not seen with idiopathic pulmonary fibrosis. They could still be some underlying idiopathic pulmonary fibrosis findings more characteristic in the lower lobes with early honeycombing, traction bronchiectasis and minimal peripheral distribution. The findings are not classic for usual interstitial pneumonitis and may require open lung biopsy for diagnosis. Checo Conner MD Barium Swallow X-Ray 09/21/16 0000 Signed Impressions: Service Date/Time: Wednesday, September 21, 2016 10:48 - CONCLUSION: 1. Small sliding hiatal hernia at the GE junction. 2. No mechanical obstruction is demonstrated. Ha Guardado MD Lung Scan-VQ Nuclear Medicine 08/26/16 0000 Signed Impressions: Service Date/Time: Friday, August 26, 2016 20:26 - CONCLUSION: 1. Low probability for pulmonary embolus. Checo Conner MD CT Angiography 08/26/16 0000 Signed Impressions: Service Date/Time: Friday, August 26, 2016 16:50 - CONCLUSION: 1. Negative for pulmonary embolus. Pulmonary fibrosis as above, not easily classifiable. There is also extensive groundglass opacity with lobular sparing. Differential diagnosis includes sequela of drug reaction or subacute hypersensitivity pneumonitis, atypical usual interstitial pneumonitis, or other causes of alveolitis. Checo Conner MD Objective Remarks General: Elderly female in no acute distress. Heart: Regular rate and rhythm. No murmur. Lungs: Bilateral crackles. Breathing is nonlabored. Abdomen: Soft, nontender, nondistended. Extremities: No lower extremity edema. Psych: Alert and oriented. Procedures None Urinary Catheter: No Date of Removal: Sep 04, 2016 Vascular Central Line Catheter: No A/P Problem List: (1) Hypoxia ICD Code: R09.02 Status: Acute (2) Bandemia ICD Code: D72.825 Status: Acute (3) Dehydration ICD Code: E86.0 Status: Resolved (4) Breast CA ICD Code: C50.919 Status: Chronic (5) HTN (hypertension) ICD Code: I10 Status: Chronic (6) Acute respiratory failure ICD Code: J96.00 Status: Resolved Assessment and Plan 1. Acute hypoxemic respiratory failure: Patient still requiring supplemental oxygen, up to 5L today. Continue DuoNeb, prednisone, Bactrim. Repeat CT scan shows interstitial fibrosis. 2. Triple positive left breast cancer: Appreciate oncology recommendations. Palliative care following. Patient not ready to transition to hospice care. 3. Anxiety: Xanax as needed. 4. Leukocytosis: Secondary to steroids. 5. Dysphagia: EGD canceled secondary to hypoxia. Continue Protonix twice a day. 6. Dyslipidemia: Continue statin. 7. Urinary incontinence: Continue Detrol LA. 8. GI prophylaxis: Protonix. 9. DVT prophylaxis: SCDs, Lovenox. 10. Insomnia: Continue Restoril as needed. Lionel Muhammad MD Oct 03, 2016 11:17
--- NOTE | 2016-10-03 11:33 | PD.ONC.PN ---
Subjective Subjective Remarks Afebrile overnight. Daughter at bedside. Patient states she feels a bit stronger today, breathing a bit better. Objective Data Date Time Temp Pulse Resp B/P Pulse Ox O2 Delivery O2 Flow Rate FiO2 10/03/16 09:01 90 Nasal Cannula 4.00 10/03/16 08:20 Nasal Cannula 4.00 Humidified 10/03/16 08:20 105 10/03/16 08:00 97.4 113 20 151/83 92 10/03/16 04:00 Nasal Cannula 4.00 Humidified 10/03/16 04:00 97.9 104 17 144/74 93 10/03/16 00:00 Nasal Cannula 4.00 Humidified 10/03/16 00:00 97.2 99 24 113/65 97 10/02/16 20:22 107 10/02/16 20:00 97.2 110 22 135/80 93 10/02/16 20:00 Nasal Cannula 4.00 Humidified 10/02/16 19:13 96 Nasal Cannula 4.00 10/02/16 17:40 90 Nasal Cannula 5.00 10/02/16 16:00 97.2 99 21 126/67 91 10/02/16 12:00 97.3 82 21 119/78 93 10/03/16 10/03/16 10/03/16 06:59 14:59 22:59 Output Total 0 ml Balance 0 ml Result Diagram: 10/03/1620 10/03/16 0720 Laboratory Results Laboratory Tests Test 10/03/16 07:20 White Blood Count 12.3 TH/MM3 Red Blood Count 4.10 MIL/MM3 Hemoglobin 12.0 GM/DL Hematocrit 36.4 % Mean Corpuscular Volume 88.8 FL Mean Corpuscular Hemoglobin 29.3 PG Mean Corpuscular Hemoglobin 33.0 % Concent Red Cell Distribution Width 19.3 % Platelet Count 173 TH/MM3 Mean Platelet Volume 8.9 FL Neutrophils (%) (Auto) 84.7 % Lymphocytes (%) (Auto) 9.4 % Monocytes (%) (Auto) 5.5 % Eosinophils (%) (Auto) 0.2 % Basophils (%) (Auto) 0.2 % Neutrophils # (Auto) 10.4 TH/MM3 Lymphocytes # (Auto) 1.2 TH/MM3 Monocytes # (Auto) 0.7 TH/MM3 Eosinophils # (Auto) 0.0 TH/MM3 Basophils # (Auto) 0.0 TH/MM3 CBC Comment AUTO DIFF Differential Total Cells 100 Counted Neutrophils % (Manual) 82 % Band Neutrophils % 2 % Lymphocytes % 10 % Monocytes % 6 % Neutrophils # (Manual) 10.3 TH/MM3 Differential Comment FINAL DIFF MANUAL Platelet Estimate NORMAL Platelet Morphology Comment NORMAL Ovalocytes 1+ Hematology Comments Sodium Level 133 MEQ/L Potassium Level 4.6 MEQ/L Chloride Level 102 MEQ/L Carbon Dioxide Level 21.7 MEQ/L Anion Gap 9 MEQ/L Blood Urea Nitrogen 14 MG/DL Creatinine 0.53 MG/DL Estimat Glomerular Filtration 112 ML/MIN Rate Random Glucose 96 MG/DL Calcium Level 9.0 MG/DL Administered Medications Medications (Trade) Dose Ordered Sig/Aurelia Route PRN Reason Start Time Stop Time Status Last Admin Dose Admin Guaifenesin (Mucinex Er) 600 mg BID PO 08/26/16 21:00 10/03/16 09:16 Sodium Chloride (NS Flush) 2 ml UNSCH PRN IV FLUSH FLUSH AFTER USING IV ACCESS 08/26/16 20:00 09/15/16 01:00 Sodium Chloride (NS Flush) 2 ml BID IV FLUSH 08/26/16 21:00 10/03/16 09:28 Ondansetron HCl (Zofran Inj) 4 mg Q6H PRN IVP NAUSEA OR VOMITING 08/26/16 20:00 09/19/16 22:08 Acetaminophen (Tylenol) 650 mg Q6H PRN PO FEVER/PAIN SCALE 1 TO 2 08/26/16 20:00 08/30/16 01:45 Morphine Sulfate (Morphine Inj) 2 mg Q3H PRN IV Pain 08-2708/26/16 20:00 10/01/16 22:00 Senna/Docusate Sodium (Letty-Colace) 1 tab BID PO 08/26/16 21:00 10/03/16 09:16 Lactulose (Lactulose Liq) 30 ml DAILY PRN PO SEVERE CONSITIPATION 08/26/16 20:00 09/01/16 09:06 Duloxetine HCl (Cymbalta Dr) 60 mg DAILY PO 08/27/16 09:00 10/03/16 09:16 Atorvastatin Calcium (Lipitor) 80 mg DAILY PO 08/27/16 09:00 10/03/16 09:15 Tolterodine Tartrate (Detrol La) 2 mg DAILY PO 08/27/16 09:00 10/03/16 09:16 Insulin Human Regular (NovoLIN R SUPPLEMENTAL SCALE) 1 ACHS SQ 09/01/16 16:00 09/30/16 21:11 Polyethylene Glycol (Miralax) 17 gm DAILY PO 09/02/16 09:00 10/03/16 09:15 Enoxaparin Sodium (Lovenox Inj) 40 mg Q24H SQ 09/21/16 16:00 10/02/16 17:35 Trimethoprim/ Sulfamethoxazole (Bactrim Ds 800-160 Mg) 2 tab BID PO 09/23/16 21:00 10/03/16 09:16 Prednisone (Deltasone) 30 mg BID PO 09/26/16 21:00 10/03/16 09:15 Alprazolam (Xanax) 0.25 mg Q6H PRN PO sob 09/26/16 12:45 10/02/16 17:35 Alprazolam (Xanax) 0.5 mg DAILY PO 09/29/16 09:00 10/03/16 09:15 Temazepam (Restoril) 7.5 mg HS PRN PO INSOMNIA 10/02/16 10:30 10/02/16 21:37 Pantoprazole Sodium (Protonix) 40 mg BID PO 10/02/16 21:00 10/03/16 09:16 Objective Remarks GENERAL: Pleasant female upright in bed on 3.5L O2 via NC SKIN: Warm and dry. HEAD: Normocephalic. EYES: No injection or drainage. NECK: Supple, trachea midline. CARDIOVASCULAR: +S1/S2 RESPIRATORY: diminished at bases, scattered rhonchi. GASTROINTESTINAL: Abdomen soft, non-tender, nondistended. EXTREMITIES: No cyanosis NEUROLOGICAL: awake and alert, normal speech. moving all extremities. Assessment/Plan Problem List: (1) Hypoxia Status: Acute Plan: 09/30: continue steroids per pulmonology. monitor improvement --ECHO = no decrease LVEF --pulmonary toxicity either due to Herceptin or Taxol --dr. Hammond, pulmonology following -- CT on 09/21 shows overall improvement of groundglass opacity (2) Breast CA Status: Chronic Plan: no further chemo. --started on weekly Herceptin and Taxol chemotherapy on July 15. Assessment 76y/o with triple positive left breast cancer admitted with respiratory insufficiency. Attending Statement Out of bed to chair at bedside Still has Dyspnea on exertion Continue steroid and oxygen Disposition per Josey Kincaid Oct 03, 2016 11:33 Tiburcio Kirk MD Oct 03, 2016 22:53
[2016-10-03] MEDS: ENOXAPARIN SODIUM 40 MG/0.4 ML SYRINGE SQ SCH (16:10)
[2016-10-03] MEDS: TEMAZEPAM 7.5 MG CAP PO PRN (21:58)
[2016-10-04] VITALS (8 sets, daily range): BP systolic 108–134; BP diastolic 56–70; PULSE 70–111; RESP 18–20; TEMP 96.2–98.2; O2SAT 93–96
[2016-10-04] MEDS: ALPRAZolam 0.25 MG TAB PO PRN (02:44)
[2016-10-04] MEDS: INSULIN NovoLIN REGULAR SUPPLEMENTAL SCALE SQ SCH ×4 (06:17→21:00)
[2016-10-04] MEDS: POLYETHYLENE GLYCOL 17 GM PKG PO SCH (08:48)
[2016-10-04] MEDS: ALPRAZolam 0.5 MG TAB PO SCH (08:49)
[2016-10-04] MEDS: PANTOPRAZOLE SOD 40 MG DELAYED RELEASE TAB PO SCH ×2 (08:49→21:58)
[2016-10-04] MEDS: SULFAMETHOXAZOLE-TRIMETHOPRIM DS 800-160 MG TAB PO SCH ×2 (08:49→21:58)
[2016-10-04] MEDS: guaiFENesin E.R. 600 MG TAB PO SCH ×2 (08:49→21:57)
[2016-10-04] MEDS: TOLTERODINE TARTRATE 2 MG CAP LA PO SCH (08:49)
[2016-10-04] MEDS: ATORVASTATIN 80 MG TAB PO SCH (08:49)
[2016-10-04] MEDS: DULoxetine HCl DR 60 MG CAP PO SCH (08:49)
[2016-10-04] MEDS: DOCUSATE SODIUM 50 MG/SENNA 8.6 MG TAB PO SCH ×2 (08:50→21:57)
[2016-10-04] MEDS: SODIUM CHLORIDE 0.9% FLUSH 10 ML FLUSH IV FLUSH SCH ×2 (08:50→21:57)
[2016-10-04] MEDS: predniSONE 20 MG TAB PO SCH (08:50)
[2016-10-04] MEDS: RESP: IPRATROPIUM 0.5 MG/2.5 ML NEB NEB SCH ×3 (09:55→19:39)
--- NOTE | 2016-10-04 10:03 | PD.ONC.PN ---
Subjective Subjective Remarks Afebrile overnight. Patient resting in bed. She just got back in bed after using the bedside commode and is very short of breath. Anytime she exerts herself, she states she gets similarly short of breath. Objective Data Date Time Temp Pulse Resp B/P Pulse Ox O2 Delivery O2 Flow Rate FiO2 10/04/16 09:49 90 Nasal Cannula 6.00 10/04/16 09:40 89 Simple Mask 8.00 10/04/16 08:00 97.4 104 20 113/56 93 10/04/16 05:14 97.9 70 18 118/66 96 10/04/16 04:00 Nasal Cannula 5.00 Humidified 10/04/16 01:03 98.2 70 18 134/70 95 10/04/16 00:00 Nasal Cannula 5.00 Humidified 10/03/16 20:52 98 Nasal Cannula 5.00 10/03/16 20:30 98.5 72 18 134/72 95 10/03/16 20:00 Nasal Cannula 5.00 Humidified 10/03/16 20:00 106 10/03/16 16:00 97.6 101 20 143/71 94 10/03/16 12:00 97.4 98 20 136/69 92 10/04/16 10/04/16 10/04/16 06:59 14:59 22:59 Intake Total 720 ml Balance 720 ml Result Diagram: 10/03/1620 10/03/16 0720 Administered Medications Medications (Trade) Dose Ordered Sig/Aurelia Route PRN Reason Start Time Stop Time Status Last Admin Dose Admin Guaifenesin (Mucinex Er) 600 mg BID PO 08/26/16 21:00 10/04/16 08:49 Sodium Chloride (NS Flush) 2 ml UNSCH PRN IV FLUSH FLUSH AFTER USING IV ACCESS 08/26/16 20:00 09/15/16 01:00 Sodium Chloride (NS Flush) 2 ml BID IV FLUSH 08/26/16 21:00 10/03/16 21:58 Ondansetron HCl (Zofran Inj) 4 mg Q6H PRN IVP NAUSEA OR VOMITING 08/26/16 20:00 09/19/16 22:08 Acetaminophen (Tylenol) 650 mg Q6H PRN PO FEVER/PAIN SCALE 1 TO 2 08/26/16 20:00 08/30/16 01:45 Morphine Sulfate (Morphine Inj) 2 mg Q3H PRN IV Pain 6-10 08/26/16 20:00 10/01/16 22:00 Senna/Docusate Sodium (Letty-Colace) 1 tab BID PO 08/26/16 21:00 10/04/16 08:50 Lactulose (Lactulose Liq) 30 ml DAILY PRN PO SEVERE CONSITIPATION 08/26/16 20:00 09/01/16 09:06 Duloxetine HCl (Cymbalta Dr) 60 mg DAILY PO 08/27/16 09:00 10/04/16 08:49 Atorvastatin Calcium (Lipitor) 80 mg DAILY PO 08/27/16 09:00 10/04/16 08:49 Tolterodine Tartrate (Detrol La) 2 mg DAILY PO 08/27/16 09:00 10/04/16 08:49 Insulin Human Regular (NovoLIN R SUPPLEMENTAL SCALE) 1 ACHS SQ 09/01/16 16:00 09/30/16 21:11 Polyethylene Glycol (Miralax) 17 gm DAILY PO 09/02/16 09:00 10/04/16 08:48 Enoxaparin Sodium (Lovenox Inj) 40 mg Q24H SQ 09/21/16 16:00 10/03/16 16:10 Trimethoprim/ Sulfamethoxazole (Bactrim Ds 800-160 Mg) 2 tab BID PO 09/23/16 21:00 10/04/16 08:49 Alprazolam (Xanax) 0.25 mg Q6H PRN PO sob 09/26/16 12:45 10/04/16 02:44 Alprazolam (Xanax) 0.5 mg DAILY PO 09/29/16 09:00 10/04/16 08:49 Temazepam (Restoril) 7.5 mg HS PRN PO INSOMNIA 10/02/16 10:30 10/03/16 21:58 Pantoprazole Sodium (Protonix) 40 mg BID PO 10/02/16 21:00 10/04/16 08:49 Prednisone (Deltasone) 40 mg DAILY PO 10/04/16 09:00 10/04/16 08:50 Objective Remarks GENERAL: Fatigued female upright in bed on 5L O2 via NC SKIN: Warm and dry. HEAD: Normocephalic. EYES: No injection or drainage. NECK: Supple, trachea midline. CARDIOVASCULAR: +S1/S2 RESPIRATORY: diminished at bases, scattered rhonchi. tachypneic GASTROINTESTINAL: Abdomen soft, non-tender, nondistended. EXTREMITIES: No cyanosis NEUROLOGICAL: awake and alert, normal speech. moving all extremities. Assessment/Plan Problem List: (1) Hypoxia Status: Acute Plan: 10/01: steroids per pulmonology. hopeful for improvement --ECHO = no decrease LVEF --pulmonary toxicity either due to Herceptin or Taxol --dr. Hammond, pulmonology following -- CT on 09/21 shows overall improvement of groundglass opacity (2) Breast CA Status: Chronic Plan: no further chemo. --started on weekly Herceptin and Taxol chemotherapy on July 15. Assessment 76y/o with triple positive left breast cancer admitted with respiratory insufficiency. Attending Statement Complaining of shortness of breath on exertion Complaining of weakness Continue steroid as pulmonary Continue oxygen as Pulmonary Disposition Per pulmonary Josey Gandara Oct 04, 2016 10:03 Tiburcio Kirk MD Oct 04, 2016 22:04
--- NOTE | 2016-10-04 10:55 | HHI.PR ---
Subjective Remarks Follow up respiratory failure. Patient became quite short of breath with getting to the chair. Denies chest pain currently. States that the shortness of breath has improved with rest. Objective Vitals Vital Signs Date Time Temp Pulse Resp B/P Pulse Ox O2 Delivery O2 Flow Rate FiO2 10/04/16 10:45 94 Nasal Cannula 4.00 10/04/16 09:57 96 Nasal Cannula 6.00 10/04/16 09:49 90 Nasal Cannula 6.00 10/04/16 09:40 89 Simple Mask 8.00 10/04/16 08:00 97.4 104 20 113/56 93 10/04/16 05:14 97.9 70 18 118/66 96 10/04/16 04:00 Nasal Cannula 5.00 Humidified 10/04/16 01:03 98.2 70 18 134/70 95 10/04/16 00:00 Nasal Cannula 5.00 Humidified 10/03/16 20:52 98 Nasal Cannula 5.00 10/03/16 20:30 98.5 72 18 134/72 95 10/03/16 20:00 Nasal Cannula 5.00 Humidified 10/03/16 20:00 106 10/03/16 16:00 97.6 101 20 143/71 94 10/03/16 12:00 97.4 98 20 136/69 92 I/O 10/03/16 10/03/16 10/03/16 10/04/16 10/04/16 10/04/16 07:00 15:00 23:00 07:00 15:00 23:00 Intake Total 480 ml 720 ml Output Total 0 ml Balance 0 ml 480 ml 720 ml Intake Oral 480 ml 720 ml Output Urine Total 0 ml # Voids 3 # Bowel Movements 0 0 Result Diagram: 10/03/16 0720 10/03/16 0720 Imaging Last Impressions Chest X-Ray 09/26/16 0000 Signed Impressions: Service Date/Time: Monday, September 26, 2016 13:03 - CONCLUSION: 1. There diffuse chronic appearing interstitial changes within both lungs these are improved compared to previous dated 09/12/16. Vance Harper MD Chest CT 09/21/16 0000 Signed Impressions: Service Date/Time: Wednesday, September 21, 2016 19:53 - CONCLUSION: 1. Overall groundglass opacity has improved over the last month but with a fairly rapid progression to pulmonary fibrosis in the peripheral upper lungs at a rate typically not seen with idiopathic pulmonary fibrosis. They could still be some underlying idiopathic pulmonary fibrosis findings more characteristic in the lower lobes with early honeycombing, traction bronchiectasis and minimal peripheral distribution. The findings are not classic for usual interstitial pneumonitis and may require open lung biopsy for diagnosis. Checo Conner MD Barium Swallow X-Ray 09/21/16 0000 Signed Impressions: Service Date/Time: Wednesday, September 21, 2016 10:48 - CONCLUSION: 1. Small sliding hiatal hernia at the GE junction. 2. No mechanical obstruction is demonstrated. Ha Guardado MD Lung Scan-VQ Nuclear Medicine 08/26/16 0000 Signed Impressions: Service Date/Time: Friday, August 26, 2016 20:26 - CONCLUSION: 1. Low probability for pulmonary embolus. Checo Conner MD CT Angiography 08/26/16 0000 Signed Impressions: Service Date/Time: Friday, August 26, 2016 16:50 - CONCLUSION: 1. Negative for pulmonary embolus. Pulmonary fibrosis as above, not easily classifiable. There is also extensive groundglass opacity with lobular sparing. Differential diagnosis includes sequela of drug reaction or subacute hypersensitivity pneumonitis, atypical usual interstitial pneumonitis, or other causes of alveolitis. Checo Conner MD Objective Remarks General: Elderly female in no acute distress. Heart: Regular rate and rhythm. No murmur. Lungs: Scattered crackles. Breathing is nonlabored. Abdomen: Soft, nontender, nondistended. Extremities: No lower extremity edema. Psych: Alert and oriented. Procedures None Urinary Catheter: No Date of Removal: Sep 04, 2016 Vascular Central Line Catheter: No A/P Problem List: (1) Hypoxia ICD Code: R09.02 Status: Acute (2) Bandemia ICD Code: D72.825 Status: Acute (3) Dehydration ICD Code: E86.0 Status: Resolved (4) Breast CA ICD Code: C50.919 Status: Chronic (5) HTN (hypertension) ICD Code: I10 Status: Chronic (6) Acute respiratory failure ICD Code: J96.00 Status: Resolved Assessment and Plan 1. Acute hypoxemic respiratory failure: Patient still requiring supplemental oxygen, up to 5L today. Continue DuoNeb, prednisone, Bactrim. Repeat CT scan shows interstitial fibrosis. Appreciate pulmonology recommendations. Discussed with Dr. Hammond yesterday. Patient improving very slowly. 2. Triple positive left breast cancer: Appreciate oncology recommendations. Palliative care following. Patient not ready to transition to hospice care. 3. Anxiety: Xanax as needed. 4. Leukocytosis: Secondary to steroids. 5. Dysphagia: EGD canceled secondary to hypoxia. Continue Protonix twice a day. 6. Dyslipidemia: Continue statin. 7. Urinary incontinence: Continue Detrol LA. 8. GI prophylaxis: Protonix. 9. DVT prophylaxis: SCDs, Lovenox. 10. Insomnia: Continue Restoril as needed. Discharge Planning When cleared by pulmonology. Possibly to inpatient rehabilitation. Lionel Muhammad MD Oct 04, 2016 10:55
[2016-10-04] MEDS: ENOXAPARIN SODIUM 40 MG/0.4 ML SYRINGE SQ SCH (17:50)
[2016-10-05] VITALS (10 sets, daily range): BP systolic 115–127; BP diastolic 64–79; PULSE 110–118; RESP 20–24; TEMP 96.1–97.3; O2SAT 92–98
[2016-10-05] MEDS: RESP: IPRATROPIUM 0.5 MG/2.5 ML NEB NEB PRN (02:16)
--- NOTE | 2016-10-05 04:35 | RADRPT ---
EXAM DATE/TIME: 10/05/2016 04:22 [place] COMPARISON: CHEST SINGLE AP, September 26, 2016, 13:03. INDICATIONS : Shortness of breath. MEDICAL HISTORY : Carcinoma, breast. Pulmonary fibrosis SURGICAL HISTORY : Left breast lumpectomy ENCOUNTER: Subsequent ACUITY: 1 month PAIN SCORE: 4/10 LOCATION: Bilateral chest FINDINGS: There is stable interstitial changes throughout both lung acosta. No definite new or focal pulmonary infiltrates. Heart size is stable. No definite pleural effusions. Right-sided [id number] remains i n place. No evidence of pneumothorax. The bony structures are stable. CONCLUSION: No significant interval change compared to the prior exam. Ha Guardado MD on October 05, 2016 at 4:32 Board Certified Radiologist. This report was verified electronically.
[2016-10-05 05:53] LABS: AUTOMATED NEUTROPHIL # 11.4 TH/MM3 (1.8-7.7); BASOPHIL % 0.2 % (0.0-2.0); EOSINOPHIL # 0.1 TH/MM3 (0-0.4); HEMATOCRIT 34.6 % (35.0-46.0); LYMPH % 9.2 % (9.0-44.0); LYMPHOCYTE # 1.2 TH/MM3 (1.0-4.8); MEAN CELL VOLUME 88.1 FL (80.0-100.0); MEAN CORPUSCULAR HEMOGLOBIN 29.2 PG (27.0-34.0); MEAN CORPUSCULAR HGB CONC 33.1 % (32.0-36.0); MONO % 3.9 % (0.0-8.0); NEUT % 85.7 % (16.0-70.0); PLATELET COUNT 196 TH/MM3 (150-450); RED BLOOD COUNT 3.93 MIL/MM3 (4.00-5.30); RED CELL DISTRIBUTION WIDTH 19.4 % (11.6-17.2); WHITE BLOOD COUNT 13.3 TH/MM3 (4.0-11.0)
[2016-10-05 06:07] LABS: HEMO FLAGS AUTO DIFF
[2016-10-05] MEDS: INSULIN NovoLIN REGULAR SUPPLEMENTAL SCALE SQ SCH ×2 (06:10→11:00)
[2016-10-05 06:24] LABS: ALT (GPT) 87 U/L (10-53); ANION GAP 8 MEQ/L (5-15); AST (GOT) 40 U/L (15-37); BICARBONATE 25.8 MEQ/L (21.0-32.0); BLOOD UREA NITROGEN 15 MG/DL (7-18); CHLORIDE 103 MEQ/L (98-107); GLOMERULAR FILTRATION RATE 88 ML/MIN (>89); POTASSIUM 4.4 MEQ/L (3.5-5.1); SODIUM (NA) 137 MEQ/L (136-145)
[2016-10-05 06:27] LABS: ALKALINE PHOSPHATASE 106 U/L (45-117); TOTAL BILIRUBIN ADULT 0.4 MG/DL (0.2-1.0)
[2016-10-05 07:14] LABS: OVALOCYTES 1+ (NORMAL); SCAN/DIFF AUTO DIFF CONFIRMED
[2016-10-05] MEDS: RESP: IPRATROPIUM 0.5 MG/2.5 ML NEB NEB SCH ×2 (08:21→14:28)
[2016-10-05] MEDS: predniSONE 20 MG TAB PO SCH (09:00)
--- NOTE | 2016-10-05 10:24 | HHI.PR ---
Subjective Remarks Follow up respiratory failure. Patient developed worsening respiratory status overnight. Now on nonrebreather mask. She is requesting Hospice consult, which has been called to [facility]. She denies chest pain. Does feel short of breath. Objective Vitals Vital Signs Date Time Temp Pulse Resp B/P Pulse Ox O2 Delivery O2 Flow Rate FiO2 10/05/16 08:23 98 Partial Rebreather 12.00 10/05/16 08:02 96.5 116 22 127/79 97 10/05/16 05:00 97.3 118 24 126/66 94 10/05/16 04:49 92 60 10/05/16 02:17 96 Partial Rebreather 12.00 10/05/16 00:00 Simple Mask 7.00 10/05/16 00:00 97.3 112 20 122/65 94 10/04/16 20:00 Simple Mask 7.00 10/04/16 20:00 109 10/04/16 20:00 96.2 111 20 132/68 95 10/04/16 19:50 95 Simple Mask 7.00 10/04/16 16:00 97.3 97 20 129/65 96 10/04/16 12:00 97.2 104 20 108/57 96 10/04/16 10:45 94 Nasal Cannula 4.00 I/O 10/04/16 10/04/16 10/04/16 10/05/16 10/05/16 10/05/16 07:00 15:00 23:00 07:00 15:00 23:00 Intake Total 720 ml Output Total 200 ml Balance 720 ml -200 ml Intake Oral 720 ml Output Urine Total 200 ml # Voids 0 # Bowel Movements 1 0 Result Diagram: 10/05/16 0543 10/05/16 0543 Imaging Last Impressions Chest X-Ray 10/05/16 0000 Signed Impressions: Service Date/Time: Wednesday, October 05, 2016 04:22 - CONCLUSION: No significant interval change compared to the prior exam. Ha Guardado MD Chest CT 09/21/16 0000 Signed Impressions: Service Date/Time: Wednesday, September 21, 2016 19:53 - CONCLUSION: 1. Overall groundglass opacity has improved over the last month but with a fairly rapid progression to pulmonary fibrosis in the peripheral upper lungs at a rate typically not seen with idiopathic pulmonary fibrosis. They could still be some underlying idiopathic pulmonary fibrosis findings more characteristic in the lower lobes with early honeycombing, traction bronchiectasis and minimal peripheral distribution. The findings are not classic for usual interstitial pneumonitis and may require open lung biopsy for diagnosis. Checo Conner MD Barium Swallow X-Ray 09/21/16 0000 Signed Impressions: Service Date/Time: Wednesday, September 21, 2016 10:48 - CONCLUSION: 1. Small sliding hiatal hernia at the GE junction. 2. No mechanical obstruction is demonstrated. Ha Guardado MD Lung Scan-VQ Nuclear Medicine 08/26/16 0000 Signed Impressions: Service Date/Time: Friday, August 26, 2016 20:26 - CONCLUSION: 1. Low probability for pulmonary embolus. Checo Conner MD CT Angiography 08/26/16 0000 Signed Impressions: Service Date/Time: Friday, August 26, 2016 16:50 - CONCLUSION: 1. Negative for pulmonary embolus. Pulmonary fibrosis as above, not easily classifiable. There is also extensive groundglass opacity with lobular sparing. Differential diagnosis includes sequela of drug reaction or subacute hypersensitivity pneumonitis, atypical usual interstitial pneumonitis, or other causes of alveolitis. Checo Conner MD Objective Remarks General: Elderly female in no acute distress. Heart: Regular rate and rhythm. No murmur. Lungs: Crackles noted bilaterally. Breathing is somewhat labored. Abdomen: Soft, nontender, nondistended. Extremities: No lower extremity edema. Psych: Alert and oriented. Procedures None Urinary Catheter: No Date of Removal: Sep 04, 2016 Vascular Central Line Catheter: No A/P Problem List: (1) Hypoxia ICD Code: R09.02 Status: Acute (2) Bandemia ICD Code: D72.825 Status: Acute (3) Dehydration ICD Code: E86.0 Status: Resolved (4) Breast CA ICD Code: C50.919 Status: Chronic (5) HTN (hypertension) ICD Code: I10 Status: Chronic (6) Acute respiratory failure ICD Code: J96.00 Status: Resolved Assessment and Plan 1. Acute hypoxemic respiratory failure: The patient's oxygen requirement has increased overnight. Continue DuoNeb, prednisone, Bactrim. Repeat CT scan shows interstitial fibrosis. Appreciate pulmonology recommendations. Chest x-ray shows no interval change. 2. Triple positive left breast cancer: Appreciate oncology recommendations. Palliative care following. 3. Anxiety: Xanax as needed. 4. Leukocytosis: Secondary to steroids. 5. Dysphagia: EGD canceled secondary to hypoxia. Continue Protonix twice a day. 6. Dyslipidemia: Continue statin. 7. Urinary incontinence: Continue Detrol LA. 8. GI prophylaxis: Protonix. 9. DVT prophylaxis: SCDs, Lovenox. 10. Insomnia: Continue Restoril as needed. The patient has requested to speak with hospice. Discharge Planning Hospice consultation is pending. Lionel Muhammad MD Oct 05, 2016 10:24
[2016-10-05] MEDS ORDERED: PRED20 PO (15:33)
--- NOTE | 2016-10-05 15:33 | HHI.DCPOC ---
Discharge Care Plan Diagnosis: (1) HTN (hypertension) (2) Breast CA (3) Pulmonary fibrosis (4) Respiratory failure (5) Interstitial lung disease Goals to Promote Your Health * To prevent worsening of your condition and complications * To maintain your health at the optimal level Directions to Meet Your Goals Take your medications as prescribed Follow your dietary instruction Follow activity as directed Keep your appointments as scheduled Take your immunizations and boosters as scheduled If your symptoms worsen call your PCP, if no PCP go to Urgent Care Center or Emergency Room Smoking is Dangerous to Your Health. Avoid second hand smoke Call the 24-hour hour crisis hotline for domestic abuse at Lionel Muhammad MD Oct 05, 2016 15:33
[2016-10-05] MEDS: MORPHINE SULFATE 4 MG/ML INJ IV PRN (15:40)
--- NOTE | 2016-10-05 22:43 | PD.ONC.PN ---
Subjective Subjective Remarks late entry Pt went into resp distress last night. Now on NRB mask Objective Data Date Time Temp Pulse Resp B/P Pulse Ox O2 Delivery O2 Flow Rate FiO2 10/05/16 16:02 96.9 113 20 115/77 93 10/05/16 14:44 92 Partial Rebreather 15.00 10/05/16 12:01 96.1 114 22 122/64 96 10/05/16 08:23 98 Partial Rebreather 12.00 10/05/16 08:02 96.5 116 22 127/79 97 10/05/16 08:00 96 Partial Non-Rebreather 15.00 10/05/16 08:00 110 10/05/16 05:00 97.3 118 24 126/66 94 10/05/16 04:49 92 60 10/05/16 02:17 96 Partial Rebreather 12.00 10/05/16 00:00 Simple Mask 7.00 10/05/16 00:00 97.3 112 20 122/65 94 10/05/16 10/05/16 10/05/16 06:59 14:59 22:59 Intake Total 25 ml Balance 25 ml Result Diagram: 10/05/16 0543 10/05/16 0543 Laboratory Results Laboratory Tests Test 10/05/16 05:43 White Blood Count 13.3 TH/MM3 Red Blood Count 3.93 MIL/MM3 Hemoglobin 11.5 GM/DL Hematocrit 34.6 % Mean Corpuscular Volume 88.1 FL Mean Corpuscular Hemoglobin 29.2 PG Mean Corpuscular Hemoglobin 33.1 % Concent Red Cell Distribution Width 19.4 % Platelet Count 196 TH/MM3 Mean Platelet Volume 8.0 FL Neutrophils (%) (Auto) 85.7 % Lymphocytes (%) (Auto) 9.2 % Monocytes (%) (Auto) 3.9 % Eosinophils (%) (Auto) 1.0 % Basophils (%) (Auto) 0.2 % Neutrophils # (Auto) 11.4 TH/MM3 Lymphocytes # (Auto) 1.2 TH/MM3 Monocytes # (Auto) 0.5 TH/MM3 Eosinophils # (Auto) 0.1 TH/MM3 Basophils # (Auto) 0.0 TH/MM3 CBC Comment AUTO DIFF Differential Comment AUTO DIFF CONFIRMED Ovalocytes 1+ Sodium Level 137 MEQ/L Potassium Level 4.4 MEQ/L Chloride Level 103 MEQ/L Carbon Dioxide Level 25.8 MEQ/L Anion Gap 8 MEQ/L Blood Urea Nitrogen 15 MG/DL Creatinine 0.65 MG/DL Estimat Glomerular Filtration 88 ML/MIN Rate Random Glucose 78 MG/DL Calcium Level 8.8 MG/DL Total Bilirubin 0.4 MG/DL Aspartate Amino Transf 40 U/L (AST/SGOT) Alanine Aminotransferase 87 U/L (ALT/SGPT) Alkaline Phosphatase 106 U/L B-Type Natriuretic Peptide 63 PG/ML Total Protein 6.0 GM/DL Albumin 2.7 GM/DL Imaging Studies Last 24 hours Impressions Chest X-Ray 10/05/16 0000 Signed Impressions: Service Date/Time: Wednesday, October 05, 2016 04:22 - CONCLUSION: No significant interval change compared to the prior exam. Ha Guardado MD Objective Remarks GENERAL: Ill patient. SKIN: Warm and dry. HEAD: Normocephalic. EYES: No scleral icterus. No injection or drainage. NECK: Supple, LYMPHATIC: No adenopathy. CARDIOVASCULAR: Regular rate and rhythm without murmurs. RESPIRATORY: Breath sounds equal bilaterally. GASTROINTESTINAL: Abdomen soft, non-tender, nondistended. EXTREMITIES: No cyanosis, or edema. NEUROLOGICAL: No obvious focal deficit. Awake, alert, and oriented x3. PSYCHIATRIC: Appropriate mood and affect; insight and judgment normal. Assessment/Plan Problem List: (1) Hypoxia Status: Acute Plan: 12/06 Pt is in resp distress on NRB mask. Pt desire BSC with hospice. Hospice is consulted OK to Tx to care center when arrangements are made. 10/01: steroids per pulmonology. hopeful for improvement --ECHO = no decrease LVEF --pulmonary toxicity either due to Herceptin or Taxol --dr. Hammond, pulmonology following -- CT on 09/21 shows overall improvement of groundglass opacity (2) Breast CA Status: Chronic Plan: no further chemo. --started on weekly Herceptin and Taxol chemotherapy on July 15. Assessment 76y/o with triple positive left breast cancer admitted with respiratory insufficiency. Tiburcio Kirk MD Oct 05, 2016 22:43
--- NOTE | 2016-10-06 11:16 | PQ ---
Physician Query Response Document PATIENT: ADELFO COHEN : 1940 ADMIT DATE: 08/26/2016 7:29 PM DISCH DATE: 10/05/2016 4:50 PM RESPONDING PROVIDER #: [email or web address] QUERY TEXT: CHF Acuity and Type Congestive Heart Failure is documented in the Medical Record. Please document the type and acuity (in cludes probable or suspected) Such as: Type: -- Systolic -- Diastolic -- Combined -- Other, please specify Acuity: -- Acute -- Chronic -- Acute on chronic -- Other, please specify Also please document the underlying cause of the CHF (includes probable or suspected) The patient's Clinical Indicators include: Dr. Muhammad, this patient was given a giagnosis of CHF. the documentation shows an Echo reading of 50-55% EF Also documentation of stage 1 diastolc dysfunction. BNP levels ranged from 11 lowest to 63 highest. Please review the question below and answer to the best of your ability. THANK YOU Query created by: Arron Arevalo on 10/06/2016 5:53 AM RESPONSE TEXT: Chronic diastolic CHF. Electronically signed by: Lionel Muhammad MD 10/06/2016 11:12 AM
== END 2016-10-05 16:50 | disposition hospice, inpatient (51) | DRG 189 ==
LOC: NEPE 14:17 → NEDA 19:29 → N04B 22:33 → HCIN 08-28 04:57 → HIME 08-28 11:45 → N04B 09-10 04:02
PROVIDERS: ADMIT Family Medicine; ATTEND Family Medicine
PROC: 3E0F7GC Introduction of Other Therapeutic Substance into Respiratory Tract, Via Natural or Artificial Opening (ICD-10-PCS; principal; 2016-08-26)
PROC: 5A09357 Assistance with Respiratory Ventilation, Less than 24 Consecutive Hours, Continuous Positive Airway Pressure (ICD-10-PCS; 2016-08-28)
PROC: 0T9B70Z Drainage of Bladder with Drainage Device, Via Natural or Artificial Opening (ICD-10-PCS; 2016-09-01)
DX: J96.01 Acute respiratory failure with hypoxia (principal); J84.9 Interstitial pulmonary disease, unspecified; I11.0 Hypertensive heart disease with heart failure; J67.9 Hypersensitivity pneumonitis due to unspecified organic dust; E87.1 Hypo-osmolality and hyponatremia; T17.920A Food in respiratory tract, part unspecified causing asphyxiation, initial encounter; R13.10 Dysphagia, unspecified; I50.22 Chronic systolic (congestive) heart failure; D89.9 Disorder involving the immune mechanism, unspecified; J84.10 Pulmonary fibrosis, unspecified; J70.4 Drug-induced interstitial lung disorders, unspecified; E86.0 Dehydration; E78.5 Hyperlipidemia, unspecified; C50.912 Malignant neoplasm of unspecified site of left female breast; M19.90 Unspecified osteoarthritis, unspecified site; Z96.651 Presence of right artificial knee joint; T45.1X5A Adverse effect of antineoplastic and immunosuppressive drugs, initial encounter; Y92.59 Other trade areas as the place of occurrence of the external cause; D64.9 Anemia, unspecified; K21.9 Gastro-esophageal reflux disease without esophagitis; K64.9 Unspecified hemorrhoids; Z80.3 Family history of malignant neoplasm of breast; Z80.42 Family history of malignant neoplasm of prostate; F32.9 Major depressive disorder, single episode, unspecified; R32 Unspecified urinary incontinence; X58.XXXA Exposure to other specified factors, initial encounter; Y93.89 Activity, other specified; Y92.230 Patient room in hospital as the place of occurrence of the external cause; Y99.9 Unspecified external cause status; I34.0 Nonrheumatic mitral (valve) insufficiency; Z51.5 Encounter for palliative care; F41.9 Anxiety disorder, unspecified; G47.00 Insomnia, unspecified; R05 Cough; K44.9 Diaphragmatic hernia without obstruction or gangrene; R47.02 Dysphasia
CPT/HCPCS: 36600; 71010; 71020; 71250; 71275; 74230; 78582; 80048; 80053; 81001; 82550; 82805; 82948; 83735; 83880; 84100; 84484; 85007; 85025; 85027; 85610; 85652; 87641; 93005; 93306; 94002; 94003; 94060; 94620; 94640; 94664; 96367; 96374; 96375; 96413; 96417; A9540; A9567; J1100; J1626; J1642; J1644; J1650; J1940; J1956; J2270; J2405; J2920; J2930; J7030; J7050; J7512; J7644; J9267; J9355; Q9967